=== PATIENT | female | born 1935 | race Caucasian/White ===

== ENCOUNTER 2023-04-14 10:03 | Observation (INO) | payer OTHER ==
--- OUTSIDE RECORDS SUMMARY | 2023-04-14 10:15 | XMS REPORT | Continuity of Care Document ---
:1935 [facility] t Address [address] [place] [address] [place] [id number] Care Team Providers Name Role Phone YAO ORLANDO Primary Care Physician Unavailable CHUY CASTILLO Attending Clinician Unavailable JING ZHOU Attending Clinician Unavailable JENNIFER HERNANDEZ Attending Clinician Unavailable JENNIFER HERNANDEZ Attending Clinician Unavailable Chuy Castillo MD Attending Clinician LAUREN BOLTON Attending Clinician Unavailable Lauren Bolton MD Attending Clinician Doctor Unassigned, [place] Attending Clinician Unavailable River Bentley MD Attending Clinician RIVER BENTLEY Attending Clinician Unavailable Taylor Preston MD Attending Clinician 2, [facility] Attending Clinician Unavailable JING SEALS Attending Clinician Unavailable CHEYENNE TAMAYO Attending Clinician Unavailable MCKENZIE PÉREZ Attending Clinician Unavailable JESSE BAUM Attending Clinician Unavailable Jeses Baum MD Attending Clinician YAO ORLANDO Attending Clinician Unavailable KOLE BOYCE Attending Clinician Unavailable OMAR GRAFF Attending Clinician Unavailable JJ WOODARD Attending Clinician Unavailable Mann Wright MD Attending Clinician LAUREN BOLTON Admitting Clinician Unavailable CHUY CASTILLO Admitting Clinician Unavailable YAO ORLANDO Admitting Clinician Unavailable KOLE BOYCE Admitting Clinician Unavailable OMAR GRAFF Admitting Clinician Unavailable JJ WOODARD Admitting Clinician Unavailable Payers Payer Name Policy Type Policy Effective Date Expiration Date Sour ce Number [employer] MEDICARE [id number] 2020 ADVANTAGE PPO 00:00:00 2 C [id number] 2020 00:00:00 [employer] MEDICARE NA Filomena e ADVANTAGE PPO [facility] Problems Condition Condition Condition Status Onset Resolution Last Treating Co mments Source Name Details Category Date Date Treatment Clinician Date Cardiac Cardiac Disease Active Univers pacemaker pacemaker 808 ity of in situ in situ 00:00: [place] [facility] Branch At risk At risk Disease Active Univers for injury for injury 8-08 it [place] of associated [place] with 00 Medical anticoagul anticoagul Br anch ation ation Essential Essential Disease Active Uni vers hypertensi hypertensi 8-08 it y of on, benign on, benign 00:00: [place] [facility] History of History of Disease Active U nivers lung lung 8-08 ity of cancer cancer 00:00: [place] [facility] Post-nasal Post-nasal Disease Active U nivers drip drip 8-08 ity of 00:00: [place] [facility] Subacute Subacute Disease Active Unive rs maxillary maxillary 808 ity of sinusitis sinusitis 00:[place] [facility] Hypertensi Hypertensi Disease Active U nivers ve urgency ve urgency 6-15 it y of 00:00: [address] Chronic Chronic Disease Active 2021-06 Univers allergic allergic 1-30 ity of rhinitis rhinitis 00:00: [address] 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 1-30 it y of 00:00: [address] Anxiety Anxiety Disease Active 2021-06 Univers 1-30 ity of 00:00: [address] S/P S/P Disease Active 2021-06 Univers radiation radiation 0-18 ity of therapy therapy 00:00: [address] Branch SOB SOB Disease Active 2021-06 Univers (shortness (shortness 0-18 it y of of breath[place] breath[place] [facility] Chronic Chronic Disease Active 2021-06 Univers pain pain 0-18 ity of syndrome syndrome 00:00: [address] Chronic Chronic Disease Active 2021-06 Univers midline midline 0-18 ity of low back low back 00:00: [place] pain with pain with 00 Medi kiko bilateral bilateral Bran ch sciatica sciatica Lumbar Lumbar Disease Active 2021-06 Univers radicular radicular 0-18 ity of syndrome syndrome 00:00: [address] Chronic Chronic Disease Active 2021-06 Univers cystitis cystitis 0-18 ity of 00:00: [address] Screening Screening Disease Active 2021-06 Uni vers for for 0-18 ity of diabetes diabetes 00:00: [place] mellitus mellitus 00 Medica l (DM) (DM) Secretary Pain Pain Disease Active 2021-06 Univers management management 0-18 it y of contract contract 00:00: [place] signed signed [facility] Chronic Chronic Disease Active 2021-06 [facility] and other and other 0-18 Heal th pulmonary pulmonary 00:00: manifestat manifestat 00 ions due ions due to to radiation radiation Chronic Chronic Disease Active 2021-06 [facility] atrial atrial 0-18 Health fibrillati fibrillati 00:00: on on 00 Fibromyalg Fibromyalg Disease Active 2021-06 U T ia ia 0-18 Health 00:00: 00 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 ICD10 Diagnosis Term Adult [employer] Utility Backache Backache Disease Active Overview: Un nicky 11-13 Formattin ity of 00:00: g of this note Medical might be Branch different from the original. ICD10 Diagnosis Term Adult [employer] Utility HLD HLD Disease Active Overview: UT (hyperlipi (hyperlipi 11-13 Formattin Health demia) demia) 00:00: g of this note might be different from the original. Formattin g of this note might be different from the original. ICD10 Diagnosis Term Adult [employer] Utility Uncontroll Uncontroll Disease Active U T ed ed 11-13 Health hypertensi hypertensi 00:00: on on 00 [facility]ary [facility] disease artery [facility] disease[facility] Allergies, Adverse Reactions, Alerts Allergy Allergy Status Severity Reaction(s) Onset Inactive Treating Comm ents Source Name Type Date Date Clinician Atorvast Propensi Active Unknown 2021-06 UT atin ty to 0-18 Health adverse 00:00: reaction 00 s Celecoxi Propensi Active Unknown 2021-06 UT b ty to 0-18 Health adverse 00:00: reaction 00 s Duloxeti Propensi Active Unknown 2021-06 UT ne ty to 0-18 Health adverse 00:00: reaction 00 s Levoflox Propensi Active Unknown 2021-06 UT acin ty to 0-18 Health adverse 00:00: reaction 00 s Linaclot Propensi Active Unknown 2021-06 UT artie ty to 0-18 Health adverse 00:00: reaction 00 s Pregabal Propensi Active Unknown 2021-06 UT in ty to 0-18 Health adverse 00:00: reaction 00 s Quinidin Propensi Active Unknown 2021-06 UT e ty to 0-18 Health adverse 00:00: reaction 00 s Rivaroxa Propensi Active Unknown 2021-06 UT ban ty to 0-18 Health adverse 00:00: reaction 00 s Warfarin Propensi Active Unknown 2021-06 UT ty to 0-18 Health adverse 00:00: reaction 00 s LEVOFLOX DRUG Active Unknown-Cmnt 2021-06 Un nicky ACIN INGREDI 0-18 ity of 00:00: [place] 00 [facility] LINACLOT DRUG Active Unknown-Cmnt 2021-06 Un nicky ARTIE INGREDI 0-18 ity of 00:00: [place] 00 [facility] PREGABAL DRUG Active Unknown-Cmnt 2021-06 Un nicky IN INGREDI 0-18 ity of 00:00: [place] 00 [facility] QUINIDIN DRUG Active Unknown-Cmnt 2021-06 Un nicky E INGREDI 0-18 ity of 00:00: [place] 00 [facility] RIVAROXA DRUG Active Unknown-Cmnt 2021-06 Un nicky BAN INGREDI 0-18 ity of 00:00: [place] 00 [facility] Atorvast Propensi Active Unknown - 2021-06 Uni vers atin ty to See comments 0-18 ity of adverse 00:00: [place] reaction 00 Medical s Branch Cefuroxi Propensi Active Unknown - 2021-06 Uni vers me ty to See comments 0-18 ity of Axetil adverse 00:00: [place] reaction 00 Medical s Branch ATORVAST DRUG Active Unknown-Cmnt 2021-06 Un nicky ATIN INGREDI 0-18 ity of 00:00: [place] 00 [facility] CEFUROXI DRUG Active Unknown-Cmnt 2021-06 Un nicky ME INGREDI 0-18 ity of AXETIL 00:00: [place] 00 [facility] CELECOXI DRUG Active Unknown-Cmnt 2021-06 Un nicky B INGREDI 0-18 ity of 00:00: [place] 00 [facility] WARFARIN DRUG Active Unknown-Cmnt 2021-06 Un nicky INGREDI 0-18 ity of 00:00: [place] 00 [facility] DULOXETI DRUG Active Unknown-Cmnt 2021-06 Un nicky NE INGREDI 0-18 ity of 00:00: [place] 00 [facility] Quinidin Drug Active U Not [place] Allergy Specified 01-21 lle Sulfate 13:46: Mem[facility] 58 l Linzess Drug Active U Not [place] Allergy Specified 01-21 lle 13:46: [facility] 58 l Warfarin Drug Active U Not [place] Sodium Allergy Specified 01-21 lle 13:46: [place] 58 l Quinidin Drug Active U Not [place] Allergy Specified 01-21 lle Sulfate 13:46: [place] 58 l Linzess Drug Active U Not [place] Allergy Specified 01-21 lle 13:46: Mem[place] 58 l Warfarin Drug Active U Not [place] Sodium Allergy Specified 01-21 lle 13:46: [facility] 58 l Quinidin Drug Active U Not [place] Allergy Specified 01-21 lle Sulfate 13:46: [place] 58 l Linzess Drug Active U Not [place] Allergy Specified 01-21 lle 13:46: [facility] 58 l Warfarin Drug Active U Not [place] Sodium Allergy Specified 01-21 lle 13:46: [facility] 58 l Quinidin Drug Active U Not [place] Allergy Specified 01-21 lle Sulfate 13:46: [place] 58 l Linzess Drug Active U Not [place] Allergy Specified 01-21 lle 13:46: [place] 58 l Xarelto Drug Active U Not [place] Allergy Specified 01-21 lle 13:46: [facility] 58 l Lyrica Drug Active U Not [place] Allergy Specified 01-21 lle 13:46: [place] 58 l Celebrex Drug Active U Not [place] Allergy Specified 01-21 lle 13:46: [place] 58 l Warfarin Drug Active U Not 2021- [place] Sodium Allergy Specified 01-21 lle 13:46: [place] 58 l Cymbalta Drug Active U Not [place] Allergy Specified 01-21 lle 13:46: [place] 58 l Levaquin Drug Active U Not [place] Allergy Specified 01-21 lle 13:46: [place] 58 l Quinidin Drug Active U Not [place] Allergy Specified 01-21 lle Sulfate 13:46: [place] 58 l Linzess Drug Active U Not [place] Allergy Specified 01-21 lle 13:46: [facility] 58 l Warfarin Drug Active U Not [place] Sodium Allergy Specified 01-21 lle 13:46: [facility] 58 l Quinidin Drug Active U Not [place] Allergy Specified 01-21 lle Sulfate 13:46: [place] 58 l Linzess Drug Active U Not [place] Allergy Specified 01-21 lle 13:46: Mem[place] 58 l Warfarin Drug Active U Not [place] Sodium Allergy Specified 01-21 lle 13:46: Mem[place] 58 l Quinidin Drug Active U Not [place] Allergy Specified 01-21 lle Sulfate 13:46: [place] 58 l Linzess Drug Active U Not [place] Allergy Specified 01-21 lle 13:46: [facility] 58 l Warfarin Drug Active U Not [place] Sodium Allergy Specified 01-21 lle 13:46: [place] 58 l Quinidin Drug Active U Not [place] Allergy Specified 01-21 lle Sulfate 13:46: [place] 58 l Linzess Drug Active U Not [place] Allergy Specified 01-21 lle 13:46: [place] 58 l Warfarin Drug Active U Not [place] Sodium Allergy Specified 01-21 lle 13:46: Mem[place] 58 l Quinidin Drug Active U Not [place] Allergy Specified 01-21 lle Sulfate 13:46: [place] 58 l Linzess Drug Active U Not [place] Allergy Specified 01-21 lle 13:46: [facility] 58 l Warfarin Drug Active U Not [place] Sodium Allergy Specified 01-21 lle 13:46: [place] 58 l Linzess Drug Active U Not [place] Allergy Specified 12-23 lle 15:47: Mem[place] 14 l Warfarin Drug Active U Not [place] Sodium Allergy Specified 12-23 lle 15:47: [place] 14 l Quinidin Drug Active U Not [place] Allergy Specified 7-16 lle Sulfate 15:47: [place] 14 l Linzess Drug Active U Not 2021- [place] Allergy Specified 7-16 lle 15:47: [place] 14 l Xarelto Drug Active U Not 2021- [place] Allergy Specified 7-16 lle 15:47: [place] 14 l Lyrica Drug Active U Not 2021- [place] Allergy Specified 7-16 lle 15:47: [place] 14 l Celebrex Drug Active U Not [place] Allergy Specified 7-16 lle 15:47: [place] 14 l Warfarin Drug Active U Not 2021- [place] Sodium Allergy Specified 7- lle 15:47: [place] 14 l Cymbalta Drug Active U Not [place] Allergy Specified 7-16 lle 15:47: [place] 14 l Levaquin Drug Active U Not [place] Allergy Specified 7- lle 15:47: [place] 14 l Quinidin Drug Active U Not [place] Allergy Specified 7-16 lle Sulfate 15:47: [place] 14 l Linzess Drug Active U Not 2021- [place] Allergy Specified 7- lle 15:47: [place] 14 l Warfarin Drug Active U Not 2021- [place] Sodium Allergy Specified 7-16 lle 15:47: [facility] 14 l Quinidin Drug Active U Not [place] Allergy Specified 7-16 lle Sulfate 15:47: [place] 14 l Linzess Drug Active U Not 2021- [place] Allergy Specified 7-16 lle 15:47: [facility] 14 l Warfarin Drug Active U Not 2021- [place] Sodium Allergy Specified 7-16 lle 15:47: [facility] 14 l Quinidin Drug Active U Not 2021- [place] Allergy Specified 7-16 lle Sulfate 15:47: [place] 14 l Linzess Drug Active U Not 2021- [place] Allergy Specified 7-16 lle 15:47: [facility] 14 l Warfarin Drug Active U Not 2021- [place] Sodium Allergy Specified 7- lle 15:47: Mem[place] 14 l Quinidin Drug Active U Not [place] Allergy Specified 7-16 lle Sulfate 15:47: [place] 14 l Linzess Drug Active U Not [place] Allergy Specified 12-23 lle 15:47: [facility] 14 l Warfarin Drug Active U Not [place] Sodium Allergy Specified - lle 15:47: [place] 14 l Quinidin Drug Active U Not [place] Allergy Specified 12-23 lle Sulfate 15:47: [place] 14 l Quinidin Drug Active U Not [place] Allergy Specified 2- lle Sulfate 00:50: [place] 36 l Linzess Drug Active U Not [place] Allergy Specified - lle 00:50: [place] 36 l Quinidin Drug Active U Not [place] Allergy Specified - lle Sulfate 00:50: [place] 36 l Linzess Drug Active U Not [place] Allergy Specified - lle 00:50: [place] 36 l Quinidin Drug Active U Not [place] Allergy Specified 2- lle Sulfate 00:50: [place] 36 l Linzess Drug Active U Not [place] Allergy Specified 2- lle 00:50: [place] 36 l Quinidin Drug Active U Not [place] Allergy Specified - lle Sulfate 00:50: [place] 36 l Linzess Drug Active U Not [place] Allergy Specified - lle 00:50: [place] 36 l Quinidin Drug Active U Not [place] Allergy Specified 2- lle Sulfate 00:50: [place] 36 l Linzess Drug Active U Not [place] Allergy Specified 2- lle 00:50: [place] 36 l Quinidin Drug Active U Not [place] Allergy Specified 2- lle Sulfate 00:50: [place] 36 l Linzess Drug Active U Not [place] Allergy Specified 2- lle 00:50: [facility] 36 l Quinidin Drug Active U Not [place] Allergy Specified 2- lle Sulfate 00:50: [place] 36 l Linzess Drug Active U Not [place] Allergy Specified 2- lle 00:50: [place] 36 l Lyrica Drug Active U Not [place] Allergy Specified 2- lle 00:50: [facility] 35 l Celebrex Drug Active U Not [place] Allergy Specified 2- lle 00:50: [place] 35 l Warfarin Drug Active U Not [place] Sodium Allergy Specified 2- lle 00:50: [place] 35 l Cymbalta Drug Active U Not [place] Allergy Specified 2- lle 00:50: [place] 35 l Levaquin Drug Active U Not [place] Allergy Specified 2- lle 00:50: [place] 35 l Warfarin Drug Active U Not [place] Sodium Allergy Specified 2- lle 00:50: [place] 35 l Warfarin Drug Active U Not [place] Sodium Allergy Specified 2- lle 00:50: [place] 35 l Warfarin Drug Active U Not [place] Sodium Allergy Specified 2- lle 00:50: [place] 35 l Warfarin Drug Active U Not [place] Sodium Allergy Specified 2- lle 00:50: [place] 35 l Warfarin Drug Active U Not [place] Sodium Allergy Specified 2- lle 00:50: [place] 35 l Warfarin Drug Active U Not [place] Sodium Allergy Specified 2- lle 00:50: [place] 35 l Xarelto Drug Active U Not [place] Allergy Specified 2- lle 00:50: [place] 34 l Unable UA Active 2020-06 [place] to 0-10 lle Assess 18:41: [facility] 53 l Unable UA Active 2020-06 [place] to 0-10 lle Assess 17:35: Mem[place] 17 l No Known NA Active 2020-06 [place] Allergie 0- lle s 17:01: [facility] 06 l No Known NA Active [place] Allergie 02-06 lle s 07:05: Mem[facility] 07 l No Known NA Active [place] Allergie 12-30 lle s 10:18: Memoria 46 l No Known NA Active [place] Allergie 12-29 lle s 00:00: Mem[facility] 51 l No Known NA Active [place] Allergie 12-28 lle s 13:00: Mem[facility] 09 l No Known NA Active [place] Allergie 12-27 lle s 16:31: Memoria 37 l No Known NA Active [place] Allergie 12-27 lle s 13:46: Memoria 29 l No Known NA Active [place] Allergie 12-27 lle s 13:43: Memoria 38 l warfarin DA Active MO 2020-0 [facility] 2[facility]12 [place] [facility] levoflox DA Active MO 2020-0 [facility] acin 2-12 [place] 00:00: [facility] duloxeti DA Active MO 2020-0 [facility] ne 2-12 [place] 00[facility]00: [facility] pregabal DA Active MO 2020-0 [facility] in 2-12 [place] 00:00: [facility] rivaroxa DA Active MO 2020-0 [facility] ban 2-12 [place] 00:00: [facility] heparin DA Active MO 2020-0 [facility] 2-12 [place] 00:00: [facility] warfarin DA Active MO 2020-0 [facility] 2-12 [place] 00:00: [facility] levoflox DA Active MO 2020-0 [facility] acin 2-12 [place] 00:00: [facility] duloxeti DA Active MO 2020-0 [facility] ne 2-12 [place] 00:00: [facility] pregabal DA Active MO 2020-0 [facility] in 2-12 [place] 00:00: [facility] rivaroxa DA Active MO 2020-0 [facility] ban 2-12 [place] 00:00: [facility] heparin DA Active MO 2020-0 [facility] 2-12 [place] 00:00: [facility] Heparin Allergy Active [place] to 08-16 lle substanc 00:00: [facility] Warfarin Allergy Active [place] to 08-16 lle substanc 00:00: [facility] Levoflox Allergy Active [place] acin to 08-16 lle substanc 00:00: [facility] CI Allergy Active [place] Pigment to 08-16 lle Blue 63 substanc 00:00: [facility] Duloxeti Allergy Active [place] ne to 08-16 lle substanc 00:00: [facility] Pregabal Allergy Active [place] in to 08-16 lle substanc 00:00: [facility]osp[facility] Rivaroxa Allergy Active [place] ban to 08-16 lle substanc 00:00: [facility] Quinine Propensi Active Rash [facility] ty to 11-13 Health adverse 00:00: reaction 00 s QUININE DRUG Active Low Rash Univers INGREDI 11-13 ity of 00:00: [place] 00 [facility] Branch Quinine Propensi Active Rash Univers ty to 11-13 ity of adverse 00:00: [place] reaction 00 Medical s to Branch drug Social History Social Habit Start Date Stop Date Quantity Comments Source Gender identity Universit y [facility] Sexual orientation Univer sity [facility] Tobacco use and 2022-12-24 2022-12-24 Smokeless Universit y of exposure 00:00:00 00:00:00 tobacco non-user [facility] Exposure to 2022-05-01 2022-05-11 Not sure University of SARS-CoV-2 (event) 00:00:00 14:06:00 [facility] History of Social 2022-05-09 2022-05-09 Univers ity of function 00:00:00 00:00:00 [facility] Alcohol intake 2022-04-20 2022-04-20 [facility] 00:00:00 00:00:00 non-drinker (finding) History of tobacco 1976-05-01 Cigarette Smoker University of use 00:00:00 [facility] Sex Ass[birth year] [facility] 00:00:00 00:00:00 Smoking Status Start Date Stop Date Source Ex-smoker 2022-12-24 00:00:00 2022-12-24 00:00:[address] [facility] Medications Ordered Filled Start Stop Current Ordering Indication Dosage Frequency Signature Comments Components Source Medication Medication Date Date Medication? Clinician (SIG) Name Name FAMOTIDINE 2022-06 Yes [id number] TAKE 1 Univers 20 mg 0-30 TABLET BY ity of tablet 00:00: MOUTH 2 [place] 00 TIMES Medical DAILY IN Secretary THE MORNING & IN THE EVENING FEXOFENADIN 2022-06 Yes [id number] TAKE 1 Univers E 60 mg 0-30 TABLET BY ity of tablet 00:00: MOUTH 2 [place] 00 TIMES Medical DAILY IN Secretary THE MORNING & IN THE EVENING *NEEDS APPT* AMLODIPINE 2022-06 Yes [id number] 5mg TAKE 1 U nivers 5 mg tablet 0-19 TABLET BY ity of 00:00: MOUTH IN [place] 00 THE Medical MORNING Secretary FEXOFENADIN 2022-06 Yes [id number] TAKE 1 Univers E 60 mg 0-19 TABLET BY ity of tablet 00:00: MOUTH 2 [place] 00 TIMES Medical DAILY IN Secretary THE MORNING & IN THE EVENING AMLODIPINE 2022-06 Yes [id number] 5mg TAKE 1 U nivers 5 mg tablet 0-19 TABLET BY ity of 00:00: MOUTH IN [place] 00 THE Medical MORNING Secretary FEXOFENADIN 2022-06- No [id number] TAKE 1 Univers E 60 mg 0-19 10-30 TABLET BY ity of tablet 00:00: 00:00 MOUTH 2 [place] 00 :00 TIMES Medical DAILY IN Secretary THE MORNING & IN THE EVENING divalproex 2022-06 Yes [id number] 500mg TAKE 1 Univers 500 mg EC 0-16 TABLET BY ity o f tablet 00:00: MOUTH [place] 00 EVERY 12 Medical HOURS Secretary divalproex 2022-06 Yes [id number] 500mg TAKE 1 Univers 500 mg EC 0-16 TABLET BY ity o f tablet 00:00: MOUTH [place] 00 EVERY 12 Medical HOURS Secretary divalproex 2022-06 Yes [id number] 500mg TAKE 1 Univers 500 mg EC 0-16 TABLET BY ity o f tablet 00:00: MOUTH [place] 00 EVERY 12 Medical HOURS Secretary iopamidol 2022-06- No [id number] 72mL 72 mL, Univers (ISOVUE 0-10 10-10 Intravenou ity o f 370-500 mL) 17:30: 16:39 s, ONCE, 1 [place] injection 00 :00 dose, On Medica l 72 mL Tue Secretary 03/19/23 at 1230, Routine divalproex 2023-0 Yes [id number] 500mg Take 1 Univers (DEPAKOTE) 8-18 tablet by ity of 500 mg EC 00:00: mouth [place] tablet 00 every 12 Medical (twelve) Branch hours. rivastigmin 2023-0 Yes [id number] 3mg Take 1 Univers e tartrate 8-18 capsule by ity of 3 mg 00:00: mouth [place] capsule 00 every Medical morning Branch and evening. divalproex 2023-0 Yes [id number] 500mg Take 1 Univers (DEPAKOTE) 8-18 tablet by ity of 500 mg EC 00:00: mouth [place] tablet 00 every 12 Medical (twelve) Branch hours. rivastigmin 2023-0 Yes [id number] 3mg Take 1 Univers e tartrate 8-18 capsule by ity of 3 mg 00:00: mouth [place] capsule 00 every Medical morning Branch and evening. divalproex 2023-0 Yes [id number] 500mg Take 1 Univers (DEPAKOTE) 8-18 tablet by ity of 500 mg EC 00:00: mouth [place] tablet 00 every 12 Medical (twelve) Branch hours. rivastigmin 2023-0 Yes [id number] 3mg Take 1 Univers e tartrate 8-18 capsule by ity of 3 mg 00:00: mouth [place] capsule 00 every Medical morning Branch and evening. divalproex 2023-0 Yes [id number] 500mg Take 1 Univers (DEPAKOTE) 8-18 tablet by ity of 500 mg EC 00:00: mouth [place] tablet 00 every 12 Medical (twelve) Branch hours. rivastigmin 2023-0 Yes [id number] 3mg Take 1 Univers e tartrate 8-18 capsule by ity of 3 mg 00:00: mouth [place] capsule 00 every Medical morning Branch and evening. divalproex 2023-0 Yes [id number] 500mg Take 1 Univers (DEPAKOTE) 8-18 tablet by ity of 500 mg EC 00:00: mouth [place] tablet 00 every 12 Medical (twelve) Branch hours. rivastigmin 2023-0 Yes [id number] 3mg Take 1 Univers e tartrate 8-18 capsule by ity of 3 mg 00:00: mouth [place] capsule 00 every Medical morning Branch and evening. divalproex 2023-0 Yes [id number] 500mg Take 1 Univers (DEPAKOTE) 8-18 tablet by ity of 500 mg EC 00:00: mouth [place] tablet 00 every 12 Medical (twelve) Branch hours. rivastigmin 2022-0 Yes [id number] 3mg Take 1 Univers e tartrate 8-18 capsule by ity of 3 mg 00:00: mouth [place] capsule 00 every Medical morning Branch and evening. rivastigmin 2022-0 Yes [id number] 3mg Take 1 Univers e tartrate 8-18 capsule by ity of 3 mg 00:00: mouth [place] capsule 00 every Medical morning Branch and evening. rivastigmin 2022-0 Yes [id number] 3mg Take 1 Univers e tartrate 8-18 capsule by ity of 3 mg 00:00: mouth [place] capsule 00 every Medical morning Branch and evening. rivastigmin 2022-0 Yes [id number] 3mg Take 1 Univers e tartrate 8-18 capsule by ity of 3 mg 00:00: mouth [place] capsule 00 every Medical morning Branch and evening. divalproex 2022-0 2022- No [id number] 500mg Take 1 Univers (DEPAKOTE) 8-18 10-16 tablet by ity of 500 mg EC 00:00: 00:00 mouth [place] tablet 00 :00 every 12 Medical (twelve) Branch hours. predniSONE 2022- Yes [id number] 20mg Take 1 [facility] 20 mg 01-16-15 tablet by ity of tablet 00:00: 04:59 mouth [place] 00 :00 every Medical morning Branch for 5 days. predniSONE 2022-0 2022- Yes [id number] 20mg Take 1 [facility] 20 mg 01-16-15 tablet by ity of tablet 00:00: 04:59 mouth [place] 00 :00 every Medical morning Branch for 5 days. methylPREDN 0 2022- No [id number] 40mg U nivers ISolone sod 01-15 ity of succ 22:30: 21:51 [place] (SOLU-MEDRO 00 :00 Medical L (PF)) Branch injection 40 mg methylPREDN 2022- No [id number] 40mg 40 mg, [facility] ISolone sod 01-15 Intravenou i ty of succ 22:30: 21:51 s, ONCE, 1 [place] (SOLU-MEDRO 00 :00 dose, On Medi kiko L (PF)) Sat01/15/23 Branch injection at 1730, 40 mg Routine methylPREDN 0 2022- No [id number] 40mg U nivers ISolone sod 01-15 ity of succ 22:30: 21:51 (SOLU-MEDRO 00 :00 Medical L (PF)) Branch injection 40 mg methylPREDN 0 2022- No [id number] 40mg 40 mg, [facility] ISolone sod 01-15 Intravenou i ty of succ 22:30: 21:51 s, ONCE, 1 (SOLU-MEDRO 00 :00 dose, On Medi kiko L (PF)) Sat01/15/23 Branch injection at 1730, 40 mg Routine fexofenadin 2022-0 Yes [id number] 60mg Take 1 [facility] e (ABEL 8-08 tablet by ity of ALLERGY) 60 00:00: mouth in [place] mg tablet 00 the Medical morning Branch and 1 tablet in the evening. fexofenadin 3-0 Yes [id number] 60mg Take 1 [facility] e (ABEL 8-08 tablet by ity of ALLERGY) 60 00:00: mouth in [place] mg tablet 00 the Medical morning Branch and 1 tablet in the evening. fexofenadin 2023-0 Yes [id number] 60mg Take 1 [facility] e (ABEL 8-08 tablet by ity of ALLERGY) 60 00:00: mouth in [place] mg tablet 00 the Medical morning Branch and 1 tablet in the evening. fexofenadin 2023-0 Yes [id number] 60mg Take 1 [facility] e (ABEL 8-08 tablet by ity of ALLERGY) 60 00:00: mouth in [place] mg tablet 00 the Medical morning Branch and 1 tablet in the evening. fexofenadin 2023-0 Yes [id number] 60mg Take 1 [facility] e (ABEL 8-08 tablet by ity of ALLERGY) 60 00:00: mouth in [place] mg tablet 00 the Medical morning Branch and 1 tablet in the evening. fexofenadin 2023-0 Yes [id number] 60mg Take 1 [facility] e (ABEL 8-08 tablet by ity of ALLERGY) 60 00:00: mouth in [place] mg tablet 00 the Medical morning Branch and 1 tablet in the evening. fexofenadin 3-0 Yes [id number] 60mg Take 1 [facility] e (ABEL 8-08 tablet by ity of ALLERGY) 60 00:00: mouth in [place] mg tablet 00 the Medical morning Branch and 1 tablet in the evening. fexofenadin 3-0 Yes [id number] 60mg Take 1 [facility] e (ABEL 8-08 tablet by ity of ALLERGY) 60 00:00: mouth in [place] mg tablet 00 the Medical morning Branch and 1 tablet in the evening. fexofenadin 3-0 Yes [id number] 60mg Take 1 [facility] e (ABEL 8-08 tablet by ity of ALLERGY) 60 00:00: mouth in [place] mg tablet 00 the Medical morning Branch and 1 tablet in the evening. fexofenadin 3-0 Yes [id number] 60mg Take 1 [facility] e (ABEL 8-08 tablet by ity of ALLERGY) 60 00:00: mouth in [place] mg tablet 00 the Medical morning Branch and 1 tablet in the evening. fexofenadin 3-0 Yes [id number] 60mg Take 1 [facility] e (ABEL 8-08 tablet by ity of ALLERGY) 60 00:00: mouth in [place] mg tablet 00 the Medical morning Branch and 1 tablet in the evening. fexofenadin 3-0 2023- No [id number] 60mg Take 1 [facility] e (ABEL 8-08 10-19 tablet by ity of ALLERGY) 60 00:00: 00:00 mouth in [place] mg tablet 00 :00 the Medical morning Branch and 1 tablet in the evening. fexofenadin 3-0 2023- No [id number] 60mg Take 1 [facility] e (ABEL 8-08 08-08 tablet by ity of ALLERGY) 60 00:00: 00:00 mouth in [place] mg tablet 00 :00 the Medical morning Branch and 1 tablet in the evening. fexofenadin 3-0 2023- No [id number] 60mg Take 1 [facility] e (ABEL 8-08 08-08 tablet by ity of ALLERGY) 60 00:00: 00:00 mouth in [place] mg tablet 00 :00 the Medical morning Branch and 1 tablet in the evening. amLODIPine 3-0 Yes [id number] 5mg Take 1 U nivers 5 mg tablet 7-27 tablet by ity of 00:00: mouth in [place] 00 the Medical morning. Branch fluticasone 3-0 Yes [id number] 1{spray Use 1 [facility] propionate 7-27 } [place] in ity o f 50 00:00: each [place] mcg/actuati 00 nostril in Me dical on nasal the Branch spray morning. fexofenadin 2023-0 Yes [id number] 60mg Take 1 [facility] e (ABEL 7-27 tablet by ity of ALLERGY) 60 00:00: mouth in [place] mg tablet 00 the Medical morning. Branch amLODIPine 2022-0 Yes [id number] 5mg Take 1 U nivers 5 mg tablet 7-27 tablet by ity of 00:00: mouth in [place] 00 the Medical morning. Branch fluticasone 2022-0 Yes [id number] 1{spray Use 1 [facility] propionate 7-27 } [place] in ity o f 50 00:00: each [place] mcg/actuati 00 nostril in Me dical on nasal the Branch spray morning. fexofenadin 3-0 Yes [id number] 60mg Take 1 [facility] e (ABEL 7-27 tablet by ity of ALLERGY) 60 00:00: mouth in [place] mg tablet 00 the Medical morning. Branch amLODIPine 2022-0 Yes [id number] 5mg Take 1 U nivers 5 mg tablet 7-27 tablet by ity of 00:00: mouth in [place] 00 the Medical morning. Branch fluticasone 2022-0 Yes [id number] 1{spray Use 1 [facility] propionate 7-27 } [place] in ity o f 50 00:00: each [place] mcg/actuati 00 nostril in Me dical on nasal the Branch spray morning. amLODIPine 3-0 Yes [id number] 5mg Take 1 U nivers 5 mg tablet 7-27 tablet by ity of 00:00: mouth in [place] 00 the Medical morning. Branch fluticasone 3-0 Yes [id number] 1{spray Use 1 [facility] propionate 7-27 } [place] in ity o f 50 00:00: each [place] mcg/actuati 00 nostril in Me dical on nasal the Branch spray morning. amLODIPine 2023-0 Yes [id number] 5mg Take 1 U nivers 5 mg tablet 7-27 tablet by ity of 00:00: mouth in [place] 00 the Medical morning. Branch fluticasone 2022-0 Yes [id number] 1{spray Use 1 [facility] propionate 7-27 } [place] in ity o f 50 00:00: each [place] mcg/actuati 00 nostril in Me dical on nasal the Branch spray morning. amLODIPine 2022-0 Yes [id number] 5mg Take 1 U nivers 5 mg tablet 7-27 tablet by ity of 00:00: mouth in [place] the Medical morning. Branch fluticasone 2022-0 Yes [id number] 1{spray Use 1 [facility] propionate 7-27 } [place] in ity o f 50 00:00: each [place] mcg/actuati 00 nostril in Me dical on nasal the Branch spray morning. amLODIPine 2022-0 Yes [id number] 5mg Take 1 U nivers 5 mg tablet 7-27 tablet by ity of 00:00: mouth in [place] the Medical morning. Branch fluticasone 2022-0 Yes [id number] 1{spray Use 1 [facility] propionate 7-27 } [place] in ity o f 50 00:00: each [place] mcg/actuati 00 nostril in [place] [facility] on nasal the Branch spray morning. amLODIPine 2022-0 Yes [id number] 5mg Take 1 U nivers 5 mg tablet 7-27 tablet by ity of 00:00: mouth in [place] the Medical morning. Branch fluticasone 2022-0 Yes [id number] 1{spray Use 1 [facility] propionate 7-27 } [place] in ity o f 50 00:00: each [place] mcg/actuati 00 nostril in Me dical on nasal the Branch spray morning. amLODIPine 2022-0 Yes [id number] 5mg Take 1 U nivers 5 mg tablet 7-27 tablet by ity of 00:00: mouth in [place] the Medical morning. Branch fluticasone 3-0 Yes [id number] 1{spray Use 1 [facility] propionate 7-27 } [place] in ity o f 50 00:00: each [place] mcg/actuati 00 nostril in Me dical on nasal the Branch spray morning. amLODIPine 2022-0 Yes [id number] 5mg Take 1 U nivers 5 mg tablet 7-27 tablet by ity of 00:00: mouth in [place] 00 the Medical morning. Branch fluticasone 3-0 Yes [id number] 1{spray Use 1 [facility] propionate 7-27 } [place] in ity o f 50 00:00: each [place] mcg/actuati 00 nostril in Me dical on nasal the Branch spray morning. amLODIPine 3-0 Yes [id number] 5mg Take 1 U nivers 5 mg tablet 7-27 tablet by ity of 00:00: mouth in [place] 00 the Medical morning. Branch fluticasone 3-0 Yes [id number] 1{spray Use 1 [facility] propionate 7-27 } [place] in ity o f 50 00:00: each [place] mcg/actuati 00 nostril in Me dical on nasal the Branch spray morning. amLODIPine 2022-0 Yes [id number] 5mg Take 1 U nivers 5 mg tablet 7-27 tablet by ity of 00:00: mouth in [place] the Medical morning. Branch fluticasone 2022-0 Yes [id number] 1{spray Use 1 [facility] propionate 7-27 } [place] in ity o f 50 00:00: each [place] mcg/actuati 00 nostril in Me dical on nasal the Branch spray morning. amLODIPine 2022-0 Yes [id number] 5mg Take 1 U nivers 5 mg tablet 7-27 tablet by ity of 00:00: mouth in [place] the Medical morning. Branch fluticasone 3-0 Yes [id number] 1{spray Use 1 [facility] propionate 7-27 } [place] in ity o f 50 00:00: each [place] mcg/actuati 00 nostril in Me dical on nasal the Branch spray morning. amLODIPine 3-0 Yes [id number] 5mg Take 1 U nivers 5 mg tablet 7-27 tablet by ity of 00:00: mouth in [place] 00 the Medical morning. Branch fluticasone 3-0 Yes [id number] 1{spray Use 1 [facility] propionate 7-27 } [place] in ity o f 50 00:00: each [place] mcg/actuati 00 nostril in Me dical on nasal the Branch spray morning. fluticasone 3-0 Yes [id number] 1{spray Use 1 [facility] propionate 7-27 } [place] in ity o f 50 00:00: each [place] mcg/actuati 00 nostril in Me dical on nasal the Branch spray morning. fluticasone 2022-0 Yes [id number] 1{spray Use 1 [facility] propionate 01-03 } [place] in ity o f 50 00:00: each [place] mcg/actuati 00 nostril in Me dical on nasal the Branch spray morning. amLODIPine 2022-2022- No [id number] 5mg Take 1 [facility] 5 mg tablet 01-03 tablet by it y of 00:00: 00:00 mouth in [place] 00 :00 the Medical morning. Branch fexofenadin 0 2022- No [id number] 60mg Take 1 [facility] e (ABEL 01-03- tablet by ity of ALLERGY) 60 00:00: 00:00 mouth in [place] mg tablet 00 :00 the Medical morning. Branch fexofenadin 2022-2022- No [id number] 60mg Take 1 [facility] e (ABEL 01-03- tablet by ity of ALLERGY) 60 00:00: 00:00 mouth in [place] mg tablet 00 :00 the Medical morning. Branch fexofenadin 2022- No [id number] 60mg Take 1 [facility] e (ABEL 01-03 08- tablet by ity of ALLERGY) 60 00:00: 00:00 mouth in [place] mg tablet 00 :00 the Medical morning. Branch doxycycline 2022-2022- No [id number] 100mg Take 1 [facility] hyclate 100 01-03- tablet by it y of mg tablet 00:00: 04:59 mouth in [place] 00 :00 the Medical morning Branch and 1 tablet in the evening. Do all this for 7 days. doxycycline 2022-0 2022- No [id number] 100mg Take 1 [facility] hyclate 100 01-03- tablet by it y of mg tablet 00:00: 04:59 mouth in [place] 00 :00 the Medical morning Branch and 1 tablet in the evening. Do all this for 7 days. fexofenadin 0 2022- No [id number] 1{tbl} Take 1 [facility] e-pseudoeph 01-03 tablet by it y of edrine 00:00: 00:00 mouth in [place] (ABEL-D) 00 :00 the Medical 60-120 mg morning Branch per tablet and 1 tablet in the evening. fexofenadin 2022-0 3- No [id number] 1{tbl} Take 1 [facility] e-pseudoeph 7-27 07-27 tablet by it y of edrine 00:00: 00:00 mouth in [place] (ABEL-D) 00 :00 the Medical 60-120 mg morning Branch per tablet and 1 tablet in the evening. rivastigmin 2022-0 Yes [id number] 1.5mg Take 1 [facility] e tartrate 7-17 capsule by ity of 1.5 mg 00:00: mouth [place] capsule 00 every Medical morning Branch and evening. rivastigmin 2022-0 Yes [id number] 1.5mg Take 1 [facility] e tartrate 7-17 capsule by ity of 1.5 mg 00:00: mouth [place] capsule 00 every Medical morning Branch and evening. rivastigmin 2022-0 Yes [id number] 1.5mg Take 1 [facility] e tartrate 7-17 capsule by ity of 1.5 mg 00:00: mouth [place] capsule 00 every Medical morning Branch and evening. rivastigmin 2022-0 Yes [id number] 1.5mg Take 1 [facility] e tartrate 7-17 capsule by ity of 1.5 mg 00:00: mouth [place] capsule 00 every Medical morning Branch and evening. rivastigmin 2022-0 Yes [id number] 1.5mg Take 1 [facility] e tartrate 7-17 capsule by ity of 1.5 mg 00:00: mouth [place] capsule 00 every Medical morning Branch and evening. rivastigmin 2022-0 Yes [id number] 1.5mg Take 1 [facility] e tartrate 7-17 capsule by ity of 1.5 mg 00:00: mouth [place] capsule 00 every Medical morning Branch and evening. rivastigmin 2022-0 Yes [id number] 1.5mg Take 1 [facility] e tartrate 7-17 capsule by ity of 1.5 mg 00:00: mouth [place] capsule 00 every Medical morning Branch and evening. rivastigmin 2022-0 3- No [id number] 1.5mg Take 1 [facility] e tartrate 7-17 08-18 capsule by it y of 1.5 mg 00:00: 00:00 mouth [place] capsule 00 :00 every Medical morning Branch and evening. rivastigmin 2022- No [id number] 1.5mg Take 1 [facility] e tartrate 12-24 capsule by it y of 1.5 mg 00:00: 00:00 mouth [place] capsule 00 :00 every Medical morning Branch and evening. cloNIDine 2022- No [id number] .2mg [place] (CATAPRES) 11-22 ity of tablet 0.2 22:00: 22:02 [place] mg 00 :00 Medical Branch cloNIDine 2022- No [id number] .2mg 0.2 mg, [facility] (CATAPRES) 11-22 Oral, ity of tablet 0.2 22:00: 22:02 ONCE, 1 [place] mg 00 :00 dose, On [facility] Branch 11/22/22 at 1700, Routine cloNIDine 2022- No [id number] .2mg [place] (CATAPRES) 11-22 ity of tablet 0.2 22:00: 22:02 [place] mg 00 :00 Medical Branch cloNIDine 2022- No [id number] .2mg 0.2 mg, [facility] (CATAPRES) 11-22 Oral, ity of tablet 0.2 22:00: 22:02 ONCE, 1 [place] mg 00 :00 dose, On [facility] Branch 11/22/22 at 1700, Routine hydrALAZINE Yes [id number] 50mg Take 1 [facility] 50 mg 6-15 tablet by ity of tablet 00:00: mouth (three) Medical times Branch daily as needed (Take 1 Tab TID PRN if BP > 160/90). busPIRone Yes [id number] 7.5mg Take 1 U nivers 7.5 mg 6-15 tablet by ity of tablet 00:00: mouth in 00 the Medical morning Branch and 1 tablet in the evening. hydrALAZINE Yes [id number] 50mg Take 1 [facility] 50 mg 6-15 tablet by ity of tablet 00:00: mouth 3 (three) Medical times Branch daily as needed (Take 1 Tab TID PRN if BP > 160/90). busPIRone 2023-0 Yes [id number] 7.5mg Take 1 U nivers 7.5 mg 6-15 tablet by ity of tablet 00:00: mouth in [place] 00 the Medical morning Branch and 1 tablet in the evening. hydrALAZINE 2023-0 Yes [id number] 50mg Take 1 [facility] 50 mg 6-15 tablet by ity of tablet 00:00: mouth 3 [place] [address] (three) Medical times Secretary daily as needed (Take 1 Tab TID PRN if BP > 160/90). busPIRone 2023-0 Yes [id number] 7.5mg Take 1 U nivers 7.5 mg 6-15 tablet by ity of tablet 00:00: mouth in [place] 00 the Medical morning Branch and 1 tablet in the evening. hydrALAZINE 3-0 Yes [id number] 50mg Take 1 [facility] 50 mg 6-15 tablet by ity of tablet 00:00: mouth 3 [place] [address] ([facility]) [facility] daily as needed (Take 1 Tab TID PRN if BP > 160/90). busPIRone 3-0 Yes [id number] 7.5mg Take 1 U nivers 7.5 mg 6-15 tablet by ity of tablet 00:00: mouth in [place] [address] the [facility] morning Branch and 1 tablet in the evening. hydrALAZINE 3-0 Yes [id number] 50mg Take 1 [facility] 50 mg 6-15 tablet by ity of tablet 00:00: mouth 3 [place] [address] ([facility]) [facility] times Secretary daily as needed (Take 1 Tab TID PRN if BP > 160/90). busPIRone 3-0 Yes [id number] 7.5mg Take 1 U nivers 7.5 mg 6-15 tablet by ity of tablet 00:00: mouth in [place] 00 the [facility] morning Branch and 1 tablet in the evening. hydrALAZINE 2023-0 Yes [id number] 50mg Take 1 [facility] 50 mg 6-15 tablet by ity of tablet 00:00: mouth 3 [place] [address] (three) [facility] times Secretary daily as needed (Take 1 Tab TID PRN if BP > 160/90). busPIRone 2023-0 Yes [id number] 7.5mg Take 1 U nivers 7.5 mg 6-15 tablet by ity of tablet 00:00: mouth in [place] the Medical morning Branch and 1 tablet in the evening. hydrALAZINE 3-0 Yes [id number] 50mg Take 1 [facility] 50 mg 6-15 tablet by ity of tablet 00:00: mouth 3 [place] [address] ([facility]) [facility] times Secretary daily as needed (Take 1 Tab TID PRN if BP > 160/90). busPIRone 2023-0 Yes [id number] 7.5mg Take 1 U nivers 7.5 mg 6-15 tablet by ity of tablet 00:00: mouth in [place] the [facility] morning Branch and 1 tablet in the evening. hydrALAZINE 3-0 Yes [id number] 50mg Take 1 [facility] 50 mg 6-15 tablet by ity of tablet 00:00: mouth 3 [place] [address] ([facility]) [facility] daily as needed (Take 1 Tab TID PRN if BP > 160/90). busPIRone 3-0 Yes [id number] 7.5mg Take 1 U nivers 7.5 mg 6-15 tablet by ity of tablet 00:00: mouth in [place] [address] the [facility] morning Secretary and 1 tablet in the evening. hydrALAZINE 3-0 Yes [id number] 50mg Take 1 [facility] 50 mg 6-15 tablet by ity of tablet 00:00: mouth 3 [place] [address] ([facility]) [facility] daily as needed (Take 1 Tab TID PRN if BP > 160/90). busPIRone 3-0 Yes [id number] 7.5mg Take 1 U nivers 7.5 mg 6-15 tablet by ity of tablet 00:00: mouth in [place] [address] the [facility] morning Branch and 1 tablet in the evening. hydrALAZINE 2023-0 Yes [id number] 50mg Take 1 [facility] 50 mg 6-15 tablet by ity of tablet 00:00: mouth 3 [place] [address] ([facility]) [facility] daily as needed (Take 1 Tab TID PRN if BP > 160/90). busPIRone 2023-0 Yes [id number] 7.5mg Take 1 U nivers 7.5 mg 6-15 tablet by ity of tablet 00:00: mouth in [place] [address] the [facility] morning Secretary and 1 tablet in the evening. hydrALAZINE 2023-0 Yes [id number] 50mg Take 1 [facility] 50 mg 6-15 tablet by ity of tablet 00:00: mouth 3 [place] (three) Medical times Branch daily as needed (Take 1 Tab TID PRN if BP > 160/90). busPIRone 3-0 Yes [id number] 7.5mg Take 1 U nivers 7.5 mg 6-15 tablet by ity of tablet 00:00: mouth in [place] 00 the Medical morning Branch and 1 tablet in the evening. hydrALAZINE 3-0 Yes [id number] 50mg Take 1 [facility] 50 mg 6-15 tablet by ity of tablet 00:00: mouth 3 [place] (three) Medical times Branch daily as needed (Take 1 Tab TID PRN if BP > 160/90). busPIRone 2022-0 Yes [id number] 7.5mg Take 1 U nivers 7.5 mg 6-15 tablet by ity of tablet 00:00: mouth in [place] the Medical morning Branch and 1 tablet in the evening. hydrALAZINE 2022-0 Yes [id number] 50mg Take 1 [facility] 50 mg 6-15 tablet by ity of tablet 00:00: mouth [place] ([facility]) Medical times Branch daily as needed (Take 1 Tab TID PRN if BP > 160/90). busPIRone 2022-0 Yes [id number] 7.5mg Take 1 U nivers 7.5 mg 6-15 tablet by ity of tablet 00:00: mouth in [place] the Medical morning Branch and 1 tablet in the evening. hydrALAZINE 3-0 Yes [id number] 50mg Take 1 [facility] 50 mg 6-15 tablet by ity of tablet 00:00: mouth 3 [place] (three) Medical times Branch daily as needed (Take 1 Tab TID PRN if BP > 160/90). busPIRone 3-0 Yes [id number] 7.5mg Take 1 U nivers 7.5 mg 6-15 tablet by ity of tablet 00:00: mouth in [place] the Medical morning Branch and 1 tablet in the evening. hydrALAZINE 3-0 Yes [id number] 50mg Take 1 [facility] 50 mg 6-15 tablet by ity of tablet 00:00: mouth 3 [place] (three) Medical times Branch daily as needed (Take 1 Tab TID PRN if BP > 160/90). busPIRone 3-0 Yes [id number] 7.5mg Take 1 U nivers 7.5 mg 6-15 tablet by ity of tablet 00:00: mouth in [place] 00 the Medical morning Branch and 1 tablet in the evening. hydrALAZINE 3-0 Yes [id number] 50mg Take 1 [facility] 50 mg 6-15 tablet by ity of tablet 00:00: mouth 3 [place] [address] (three) Medical times Secretary daily as needed (Take 1 Tab TID PRN if BP > 160/90). busPIRone 3-0 Yes [id number] 7.5mg Take 1 U nivers 7.5 mg 6-15 tablet by ity of tablet 00:00: mouth in [place] 00 the Medical morning Branch and 1 tablet in the evening. hydrALAZINE 3-0 Yes [id number] 50mg Take 1 [facility] 50 mg 6-15 tablet by ity of tablet 00:00: mouth 3 [place] [address] ([facility]) [facility] times Secretary daily as needed (Take 1 Tab TID PRN if BP > 160/90). busPIRone 3-0 Yes [id number] 7.5mg Take 1 U nivers 7.5 mg 6-15 tablet by ity of tablet 00:00: mouth in [place] [address] the [facility] morning Branch and 1 tablet in the evening. hydrALAZINE 3-0 Yes [id number] 50mg Take 1 [facility] 50 mg 6-15 tablet by ity of tablet 00:00: mouth 3 [place] [address] ([facility]) [facility] times Secretary daily as needed (Take 1 Tab TID PRN if BP > 160/90). busPIRone 3-0 Yes [id number] 7.5mg Take 1 U nivers 7.5 mg 6-15 tablet by ity of tablet 00:00: mouth in [place] [address] the Medical morning Branch and 1 tablet in the evening. hydrALAZINE 2023-0 Yes [id number] 50mg Take 1 [facility] 50 mg 6-15 tablet by ity of tablet 00:00: mouth 3 [place] [address] (three) [facility] times Secretary daily as needed (Take 1 Tab TID PRN if BP > 160/90). busPIRone 3-0 Yes [id number] 7.5mg Take 1 U nivers 7.5 mg 6-15 tablet by ity of tablet 00:00: mouth in [place] [address] the Medical morning Branch and 1 tablet in the evening. hydrALAZINE 2023-0 Yes [id number] 50mg Take 1 [facility] 50 mg 6-15 tablet by ity of tablet 00:00: mouth 3 [place] [address] ([facility]) [facility] daily as needed (Take 1 Tab TID PRN if BP > 160/90). busPIRone 2023-0 Yes [id number] 7.5mg Take 1 U nivers 7.5 mg 6-15 tablet by ity of tablet 00:00: mouth in [place] the [facility] morning Branch and 1 tablet in the evening. hydrALAZINE 3-0 Yes [id number] 50mg Take 1 [facility] 50 mg 6-15 tablet by ity of tablet 00:00: mouth 3 [place] [address] ([facility]) [facility] daily as needed (Take 1 Tab TID PRN if BP > 160/90). busPIRone 3-0 Yes [id number] 7.5mg Take 1 U nivers 7.5 mg 6-15 tablet by ity of tablet 00:00: mouth in [address] and 1 tablet in the evening. hydrALAZINE 3-0 Yes [id number] 50mg Take 1 [facility] 50 mg 6-15 tablet by ity of tablet 00:00: mouth 3 [place] [address] ([facility]) [facility] daily as needed (Take 1 Tab TID PRN if BP > 160/90). busPIRone 3-0 Yes [id number] 7.5mg Take 1 U nivers 7.5 mg 6-15 tablet by ity of tablet 00:00: mouth in [place] [address] the [facility] morning Secretary and 1 tablet in the evening. hydrALAZINE 3-0 Yes [id number] 50mg Take 1 [facility] 50 mg 6-15 tablet by ity of tablet 00:00: mouth 3 [place] [address] ([facility]) [facility] daily as needed (Take 1 Tab TID PRN if BP > 160/90). busPIRone 2023-0 Yes [id number] 7.5mg Take 1 U nivers 7.5 mg 6-15 tablet by ity of tablet 00:00: mouth in [place] [address] the [facility] morning Secretary and 1 tablet in the evening. hydrALAZINE 2023-0 Yes [id number] 50mg Take 1 [facility] 50 mg 6-15 tablet by ity of tablet 00:00: mouth 3 [place] [address] (three) Medical times Branch daily as needed (Take 1 Tab TID PRN if BP > 160/90). busPIRone 2022-0 Yes [id number] 7.5mg Take 1 U nivers 7.5 mg 6-15 tablet by ity of tablet 00:00: mouth in [place] 00 the Medical morning Branch and 1 tablet in the evening. hydrALAZINE 2022-0 Yes [id number] 50mg Take 1 [facility] 50 mg 6-15 tablet by ity of tablet 00:00: mouth 3 [place] [address] (three) Medical times Branch daily as needed (Take 1 Tab TID PRN if BP > 160/90). busPIRone 2022-0 Yes [id number] 7.5mg Take 1 U nivers 7.5 mg 6-15 tablet by ity of tablet 00:00: mouth in [place] [address] the Medical morning Branch and 1 tablet in the evening. hydrALAZINE 2022-0 Yes [id number] 50mg Take 1 [facility] 50 mg 6-15 tablet by ity of tablet 00:00: mouth 3 [place] [address] (three) Medical times Secretary daily as needed (Take 1 Tab TID PRN if BP > 160/90). busPIRone 2022-0 Yes [id number] 7.5mg Take 1 U nivers 7.5 mg 6-15 tablet by ity of tablet 00:00: mouth in [place] the Medical morning Branch and 1 tablet in the evening. metoprolol 2022-0 Yes [id number] TAKE 1 U nivers succinate 5-31 TABLET BY ity o f XL 100 mg 00:00: MOUTH IN [facility] 24 hr 00 THE Medical tablet MORNING Branch WITH FOOD hydroCHLORO 2022-0 Yes [id number] TAKE 1 [facility] thiazide 50 5-31 TABLET BY ity of mg tablet 00:00: MOUTH ONCE [place] 00 DAILY Medical Branch furosemide 2022-0 Yes [id number] 20mg Take 1 U nivers 20 mg 5-31 tablet by ity of tablet 00:00: mouth in [place] [address] the Medical morning. Branch losartan 2022-0 Yes [id number] Take 100mg [facility] 100 mg 5-31 qAM and ity of tablet 00:00: 50mg qPM [place] 00 Medical Branch amitriptyli 2022-0 Yes [id number] 10mg Take 1 [facility] ne 10 mg 5-31 tablet by ity of tablet 00:00: mouth at [place] [address] bedtime. Medical Branch apixaban Yes [id number] 2.5mg Take 1 Univer s (ELIQUIS) 5-31 tablet by ity o f 2.5 mg 00:00: mouth in [place] tablet 00 the Medical morning Branch and 1 tablet in the evening. Indication s: atrial fibrillati on metoprolol Yes [id number] TAKE 1 U nivers succinate 5-31 TABLET BY ity o f XL 100 mg 00:00: MOUTH IN [facility] 24 hr 00 THE Medical tablet MORNING Branch WITH FOOD hydroCHLORO Yes [id number] TAKE 1 [facility] thiazide 50 5-31 TABLET BY ity of mg tablet 00:00: MOUTH ONCE [place] 00 DAILY Medical Branch furosemide Yes [id number] 20mg Take 1 [facility] nivers 20 mg 5-31 tablet by ity of tablet 00:00: mouth in [place] 00 the Medical morning. Branch losartan Yes [id number] Take 100mg [facility] 100 mg 5-31 qAM and ity of tablet 00:00: 50mg qPM [place] 00 Medical Branch amitriptyli Yes [id number] 10mg Take 1 [facility] ne 10 mg 5-31 tablet by ity of tablet 00:00: mouth at [place] 00 bedtime. Medical Branch apixaban Yes 1358 2.5mg Take 1 [facility] s (ELIQUIS) 5-31 tablet by ity o f 2.5 mg 00:00: mouth in [place] tablet 00 the Medical morning Branch and 1 tablet in the evening. Indication s: atrial fibrillati on metoprolol Yes [id number] TAKE 1 U nivers succinate 5-31 TABLET BY ity o f XL 100 mg 00:00: MOUTH IN [facility] 24 hr 00 THE Medical tablet MORNING Branch WITH FOOD hydroCHLORO Yes [id number] TAKE 1 [facility] thiazide 50 5-31 TABLET BY ity of mg tablet 00:00: MOUTH ONCE [place] 00 DAILY Medical Branch furosemide Yes [id number] 20mg Take 1 [facility] nivers 20 mg 5-31 tablet by ity of tablet 00:00: mouth in [place] 00 the Medical morning. Branch losartan Yes [id number] Take 100mg [facility] 100 mg 5-31 qAM and ity of tablet 00:00: 50mg qPM [place] 00 Medical Branch amitriptyli 2022- Yes [id number] 10mg Take 1 [facility] ne 10 mg 5-31 tablet by ity of tablet 00:00: mouth at [place] [address] bedtime. Medical Branch apixaban Yes 1358 2.5mg Take 1 [facility] s (ELIQUIS) 5-31 tablet by ity o f 2.5 mg 00:00: mouth in [place] tablet 00 the Medical morning Branch and 1 tablet in the evening. Indication s: atrial fibrillati on metoprolol Yes [id number] TAKE 1 [facility] nivers succinate 5-31 TABLET BY ity o f XL 100 mg 00:00: MOUTH IN [facility] 24 hr 00 THE Medical tablet MORNING Branch WITH FOOD hydroCHLORO Yes [id number] TAKE 1 [facility] thiazide 50 5-31 TABLET BY ity of mg tablet 00:00: MOUTH ONCE [place] 00 DAILY Medical Branch furosemide Yes [id number] 20mg Take 1 [facility] nivers 20 mg 5-31 tablet by ity of tablet 00:00: mouth in [place] 00 the Medical morning. Branch losartan Yes [id number] Take 100mg [facility] 100 mg 5-31 qAM and ity of tablet 00:00: 50mg qPM [place] 00 Medical Branch amitriptyli Yes [id number] 10mg Take 1 [facility] ne 10 mg 5-31 tablet by ity of tablet 00:00: mouth at [place] [address] bedtime. Medical Branch apixaban Yes 1358 2.5mg Take 1 [facility] s (ELIQUIS) 5-31 tablet by ity o f 2.5 mg 00:00: mouth in [place] tablet 00 the Medical morning Branch and 1 tablet in the evening. Indication s: atrial fibrillati on metoprolol Yes [id number] TAKE 1 [facility] nivers succinate 5-31 TABLET BY ity o f XL 100 mg 00:00: MOUTH IN [facility] 24 hr 00 THE Medical tablet MORNING Branch WITH FOOD furosemide 2022- Yes [id number] 20mg Take 1 [facility] nivers 20 mg 5-31 tablet by ity of tablet 00:00: mouth in [place] 00 the Medical morning. Branch losartan Yes [id number] Take 100mg [facility] 100 mg 5-31 qAM and ity of tablet 00:00: 50mg qPM [place] 00 Medical Branch amitriptyli Yes [id number] 10mg Take 1 [facility] ne 10 mg 5-31 tablet by ity of tablet 00:00: mouth at [place] 00 bedtime. Medical Branch apixaban Yes 1358 2.5mg Take 1 [facility] s (ELIQUIS) 5-31 tablet by ity o f 2.5 mg 00:00: mouth in [place] tablet 00 the Medical morning Branch and 1 tablet in the evening. Indication s: atrial fibrillati on metoprolol Yes [id number] TAKE 1 [facility] nivers succinate 5-31 TABLET BY ity o f XL 100 mg 00:00: MOUTH IN [facility] 24 hr 00 THE Medical tablet MORNING Branch WITH FOOD furosemide Yes [id number] 20mg Take 1 [facility] nivers 20 mg 5-31 tablet by ity of tablet 00:00: mouth in [place] 00 the Medical morning. Branch losartan Yes [id number] Take 100mg [facility] 100 mg 5-31 qAM and ity of tablet 00:00: 50mg qPM [place] Medical Branch amitriptyli Yes [id number] 10mg Take 1 [facility] ne 10 mg 5-31 tablet by ity of tablet 00:00: mouth at [place] [address] bedtime. Medical Branch apixaban Yes 1358 2.5mg Take 1 [facility] s (ELIQUIS) 5-31 tablet by ity o f 2.5 mg 00:00: mouth in [place] tablet 00 the Medical morning Branch and 1 tablet in the evening. Indication s: atrial fibrillati on metoprolol Yes [id number] TAKE 1 U nivers succinate 5-31 TABLET BY ity o f XL 100 mg 00:00: MOUTH IN [facility] 24 hr 00 THE Medical tablet MORNING Branch WITH FOOD furosemide Yes [id number] 20mg Take 1 [facility] nivers 20 mg 5-31 tablet by ity of tablet 00:00: mouth in [place] 00 the Medical morning. Branch losartan 2022- Yes [id number] Take 100mg [facility] 100 mg 5-31 qAM and ity of tablet 00:00: 50mg qPM [place] 00 Medical Branch amitriptyli Yes [id number] 10mg Take 1 [facility] ne 10 mg 5-31 tablet by ity of tablet 00:00: mouth at [place] 00 bedtime. Medical Branch apixaban Yes 1358 2.5mg Take 1 [facility] s (ELIQUIS) 5-31 tablet by ity o f 2.5 mg 00:00: mouth in [place] tablet 00 the Medical morning Branch and 1 tablet in the evening. Indication s: atrial fibrillati on metoprolol Yes [id number] TAKE 1 U nivers succinate 5-31 TABLET BY ity o f XL 100 mg 00:00: MOUTH IN [place] 24 hr 00 THE Medical tablet MORNING Branch WITH FOOD furosemide Yes [id number] 20mg Take 1 [facility] nivers 20 mg 5-31 tablet by ity of tablet 00:00: mouth in [place] 00 the Medical morning. Branch losartan Yes [id number] Take 100mg [facility] 100 mg 5-31 qAM and ity of tablet 00:00: 50mg qPM [place] 00 Medical Branch amitriptyli Yes [id number] 10mg Take 1 [facility] ne 10 mg 5-31 tablet by ity of tablet 00:00: mouth at [place] 00 bedtime. Medical Branch apixaban Yes 1358 2.5mg Take 1 [facility] s (ELIQUIS) 5-31 tablet by ity o f 2.5 mg 00:00: mouth in [place] tablet 00 the Medical morning Branch and 1 tablet in the evening. Indication s: atrial fibrillati on metoprolol Yes [id number] TAKE 1 U nivers succinate 5-31 TABLET BY ity o f XL 100 mg 00:00: MOUTH IN [place] 24 hr 00 THE Medical tablet MORNING Branch WITH FOOD furosemide Yes [id number] 20mg Take 1 [facility] nivers 20 mg 5-31 tablet by ity of tablet 00:00: mouth in [place] 00 the Medical morning. Branch losartan Yes [id number] Take 100mg [facility] 100 mg 5-31 qAM and ity of tablet 00:00: 50mg qPM [place] 00 Medical Branch amitriptyli Yes [id number] 10mg Take 1 [facility] ne 10 mg 5-31 tablet by ity of tablet 00:00: mouth at [place] 00 bedtime. Medical Branch apixaban Yes 1358 2.5mg Take 1 [facility] s (ELIQUIS) 5-31 tablet by ity o f 2.5 mg 00:00: mouth in [place] tablet 00 the Medical morning Branch and 1 tablet in the evening. Indication s: atrial fibrillati on metoprolol Yes [id number] TAKE 1 U nivers succinate 5-31 TABLET BY ity o f XL 100 mg 00:00: MOUTH IN [facility] 24 hr 00 THE Medical tablet MORNING Branch WITH FOOD furosemide Yes [id number] 20mg Take 1 [facility] nivers 20 mg 5-31 tablet by ity of tablet 00:00: mouth in [place] 00 the Medical morning. Branch losartan Yes [id number] Take 100mg [facility] 100 mg 5-31 qAM and ity of tablet 00:00: 50mg qPM [place] 00 Medical Branch amitriptyli Yes [id number] 10mg Take 1 [facility] ne 10 mg 5-31 tablet by ity of tablet 00:00: mouth at [place] [address] bedtime. Medical Branch apixaban Yes 1358 2.5mg Take 1 [facility] s (ELIQUIS) 5-31 tablet by ity o f 2.5 mg 00:00: mouth in [place] tablet 00 the Medical morning Branch and 1 tablet in the evening. Indication s: atrial fibrillati on metoprolol Yes [id number] TAKE 1 U nivers succinate 5-31 TABLET BY ity o f XL 100 mg 00:00: MOUTH IN [facility] 24 hr 00 THE Medical tablet MORNING Branch WITH FOOD furosemide Yes [id number] 20mg Take 1 [facility] nivers 20 mg 5-31 tablet by ity of tablet 00:00: mouth in [place] 00 the Medical morning. Branch losartan Yes [id number] Take 100mg [facility] 100 mg 5-31 qAM and ity of tablet 00:00: 50mg qPM [place] 00 Medical Branch amitriptyli 2022-0 Yes [id number] 10mg Take 1 [facility] ne 10 mg 5-31 tablet by ity of tablet 00:00: mouth at [place] [address] bedtime. Medical Branch apixaban Yes 1358 2.5mg Take 1 [facility] s (ELIQUIS) 5-31 tablet by ity o f 2.5 mg 00:00: mouth in [place] tablet 00 the Medical morning Branch and 1 tablet in the evening. Indication s: atrial fibrillati on metoprolol Yes [id number] TAKE 1 U nivers succinate 5-31 TABLET BY ity o f XL 100 mg 00:00: MOUTH IN [facility] 24 hr 00 THE Medical tablet MORNING Branch WITH FOOD furosemide Yes [id number] 20mg Take 1 [facility] nivers 20 mg 5-31 tablet by ity of tablet 00:00: mouth in [place] 00 the Medical morning. Branch losartan Yes [id number] Take 100mg [facility] 100 mg 5-31 qAM and ity of tablet 00:00: 50mg qPM [place] 00 Medical Branch amitriptyli Yes [id number] 10mg Take 1 [facility] ne 10 mg 5-31 tablet by ity of tablet 00:00: mouth at [place] [address] bedtime. Medical Branch apixaban Yes 1358 2.5mg Take 1 Univer s (ELIQUIS) 5-31 tablet by ity o f 2.5 mg 00:00: mouth in [place] tablet 00 the Medical morning Branch and 1 tablet in the evening. Indication s: atrial fibrillati on metoprolol Yes [id number] TAKE 1 U nivers succinate 5-31 TABLET BY ity o f XL 100 mg 00:00: MOUTH IN [facility] 24 hr 00 THE Medical tablet MORNING Branch WITH FOOD furosemide Yes [id number] 20mg Take 1 [facility] nivers 20 mg 5-31 tablet by ity of tablet 00:00: mouth in [place] 00 the Medical morning. Branch losartan Yes [id number] Take 100mg [facility] 100 mg 5-31 qAM and ity of tablet 00:00: 50mg qPM [place] 00 Medical Branch amitriptyli Yes [id number] 10mg Take 1 [facility] ne 10 mg 5-31 tablet by ity of tablet 00:00: mouth at [place] [address] bedtime. Medical Branch apixaban Yes 1358 2.5mg Take 1 [facility] s (ELIQUIS) 5-31 tablet by ity o f 2.5 mg 00:00: mouth in [place] tablet 00 the Medical morning Branch and 1 tablet in the evening. Indication s: atrial fibrillati on metoprolol Yes [id number] TAKE 1 U nivers succinate 5-31 TABLET BY ity o f XL 100 mg 00:00: MOUTH [place] 24 [place] 00 THE Medical tablet MORNING Branch WITH FOOD furosemide Yes [id number] 20mg Take 1 U nivers 20 mg 5-31 tablet by ity of tablet 00:00: mouth in [place] 00 the Medical morning. Branch losartan 2022-0 Yes [id number] Take 100mg [facility] 100 mg 5-31 qAM and ity of tablet 00:00: 50mg qPM [place] 00 Medical Branch amitriptyli 0 Yes [id number] 10mg Take 1 [facility] ne 10 mg 5-31 tablet by ity of tablet 00:00: mouth at [place] [address] bedtime. Medical Branch apixaban 0 Yes 1358 2.5mg Take 1 Univer s (ELIQUIS) 5-31 tablet by ity o f 2.5 mg 00:00: mouth in [place] tablet 00 the Medical morning Branch and 1 tablet in the evening. Indication s: atrial fibrillati on metoprolol Yes [id number] TAKE 1 U nivers succinate 5-31 TABLET BY ity o f XL 100 mg 00:00: MOUTH IN [facility] 24 hr 00 THE Medical tablet MORNING Branch WITH FOOD furosemide Yes [id number] 20mg Take 1 [facility] nivers 20 mg 5-31 tablet by ity of tablet 00:00: mouth in [place] 00 the Medical morning. Branch losartan 0 Yes [id number] Take 100mg [facility] 100 mg 5-31 qAM and ity of tablet 00:00: 50mg qPM [place] 00 Medical Branch amitriptyli 2022-0 Yes [id number] 10mg Take 1 [facility] ne 10 mg 5-31 tablet by ity of tablet 00:00: mouth at [place] [address] bedtime. Medical Branch apixaban 0 Yes 1358 2.5mg Take 1 Univer s (ELIQUIS) 5-31 tablet by ity o f 2.5 mg 00:00: mouth in [place] tablet 00 the Medical morning Branch and 1 tablet in the evening. Indication s: atrial fibrillati on metoprolol Yes [id number] TAKE 1 U nivers succinate 5-31 TABLET BY ity o f XL 100 mg 00:00: MOUTH IN [place] 24 hr 00 THE Medical tablet MORNING Branch WITH FOOD furosemide Yes [id number] 20mg Take 1 [facility] nivers 20 mg 5-31 tablet by ity of tablet 00:00: mouth in [place] 00 the Medical morning. Branch losartan Yes [id number] Take 100mg [facility] 100 mg 5-31 qAM and ity of tablet 00:00: 50mg qPM [place] 00 Medical Branch amitriptyli Yes [id number] 10mg Take 1 [facility] ne 10 mg 5-31 tablet by ity of tablet 00:00: mouth at [place] 00 bedtime. Medical Branch apixaban Yes 1358 2.5mg Take 1 [facility] s (ELIQUIS) 5-31 tablet by ity o f 2.5 mg 00:00: mouth in [place] tablet 00 the Medical morning Branch and 1 tablet in the evening. Indication s: atrial fibrillati on metoprolol Yes [id number] TAKE 1 U nivers succinate 5-31 TABLET BY ity o f XL 100 mg 00:00: MOUTH IN [facility] 24 hr 00 THE Medical tablet MORNING Branch WITH FOOD furosemide Yes [id number] 20mg Take 1 U nivers 20 mg 5-31 tablet by ity of tablet 00:00: mouth in [place] 00 the Medical morning. Branch losartan Yes [id number] Take 100mg [facility] 100 mg 5-31 qAM and ity of tablet 00:00: 50mg qPM [place] 00 Medical Branch amitriptyli Yes [id number] 10mg Take 1 [facility] ne 10 mg 5-31 tablet by ity of tablet 00:00: mouth at [place] 00 bedtime. Medical Branch apixaban Yes 1358 2.5mg Take 1 Un[facility] s (ELIQUIS) 5-31 tablet by ity o f 2.5 mg 00:00: mouth in [place] tablet 00 the Medical morning Branch and 1 tablet in the evening. Indication s: atrial fibrillati on metoprolol Yes [id number] TAKE 1 U nivers succinate 5-31 TABLET BY ity o f XL 100 mg 00:00: MOUTH [place] 24 [place] 00 THE Medical tablet MORNING Branch WITH FOOD furosemide Yes [id number] 20mg Take 1 U nivers 20 mg 5-31 tablet by ity of tablet 00:00: mouth in [place] 00 the Medical morning. Branch losartan Yes [id number] Take 100mg [facility] 100 mg 5-31 qAM and ity of tablet 00:00: 50mg qPM [place] 00 Medical Branch amitriptyli 2022-0 Yes [id number] 10mg Take 1 [facility] ne 10 mg 5-31 tablet by ity of tablet 00:00: mouth at [place] [address] bedtime. Medical Branch apixaban 2022-0 Yes 1358 2.5mg Take 1 Univer s (ELIQUIS) 5-31 tablet by ity o f 2.5 mg 00:00: mouth in [place] tablet 00 the Medical morning Branch and 1 tablet in the evening. Indication s: atrial fibrillati on metoprolol Yes [id number] TAKE 1 U nivers succinate 5-31 TABLET BY ity o f XL 100 mg 00:00: MOUTH IN [facility] 24 hr 00 THE Medical tablet MORNING Branch WITH FOOD furosemide Yes [id number] 20mg Take 1 U nivers 20 mg 5-31 tablet by ity of tablet 00:00: mouth in [place] 00 the Medical morning. Branch losartan Yes [id number] Take 100mg [facility] 100 mg 5-31 qAM and ity of tablet 00:00: 50mg qPM [place] 00 Medical Branch amitriptyli 2022-0 Yes [id number] 10mg Take 1 [facility] ne 10 mg 5-31 tablet by ity of tablet 00:00: mouth at [place] [address] bedtime. Medical Branch apixaban 2022- Yes 1358 2.5mg Take 1 Univer s (ELIQUIS) 5-31 tablet by ity o f 2.5 mg 00:00: mouth in [place] tablet 00 the Medical morning Branch and 1 tablet in the evening. Indication s: atrial fibrillati on metoprolol Yes [id number] TAKE 1 U nivers succinate 5-31 TABLET BY ity o f XL 100 mg 00:00: MOUTH IN [facility] 24 hr 00 THE Medical tablet MORNING Branch WITH FOOD furosemide Yes [id number] 20mg Take 1 [facility] nivers 20 mg 5-31 tablet by ity of tablet 00:00: mouth in [place] 00 the Medical morning. Branch losartan Yes [id number] Take 100mg [facility] 100 mg 5-31 qAM and ity of tablet 00:00: 50mg qPM [place] 00 Medical Branch amitriptyli Yes [id number] 10mg Take 1 [facility] ne 10 mg 5-31 tablet by ity of tablet 00:00: mouth at [place] [address] bedtime. Medical Branch apixaban Yes 1358 2.5mg Take 1 [facility] s (ELIQUIS) 5-31 tablet by ity o f 2.5 mg 00:00: mouth in [place] tablet 00 the Medical morning Branch and 1 tablet in the evening. Indication s: atrial fibrillati on metoprolol Yes [id number] TAKE 1 U nivers succinate 5-31 TABLET BY ity o f XL 100 mg 00:00: MOUTH IN [facility] 24 hr 00 THE Medical tablet MORNING Branch WITH FOOD furosemide Yes [id number] 20mg Take 1 [facility] nivers 20 mg 5-31 tablet by ity of tablet 00:00: mouth in [place] 00 the Medical morning. Branch losartan Yes [id number] Take 100mg [facility] 100 mg 5-31 qAM and ity of tablet 00:00: 50mg qPM [place] Medical Branch amitriptyli Yes [id number] 10mg Take 1 [facility] ne 10 mg 5-31 tablet by ity of tablet 00:00: mouth at [place] [address] bedtime. Medical Branch apixaban Yes 1358 2.5mg Take 1 [facility] s (ELIQUIS) 5-31 tablet by ity o f 2.5 mg 00:00: mouth in [place] tablet 00 the Medical morning Branch and 1 tablet in the evening. Indication s: atrial fibrillati on metoprolol Yes [id number] TAKE 1 U nivers succinate 5-31 TABLET BY ity o f XL 100 mg 00:00: MOUTH IN [place] 24 hr 00 THE Medical tablet MORNING Branch WITH FOOD furosemide Yes [id number] 20mg Take 1 [facility] nivers 20 mg 5-31 tablet by ity of tablet 00:00: mouth in [place] 00 the Medical morning. Branch losartan Yes [id number] Take 100mg [facility] 100 mg 5-31 qAM and ity of tablet 00:00: 50mg qPM [place] 00 Medical Branch amitriptyli Yes [id number] 10mg Take 1 [facility] ne 10 mg 5-31 tablet by ity of tablet 00:00: mouth at [place] [address] bedtime. Medical Branch apixaban Yes 1358 2.5mg Take 1 [facility] s (ELIQUIS) 5-31 tablet by ity o f 2.5 mg 00:00: mouth in [place] tablet 00 the Medical morning Branch and 1 tablet in the evening. Indication s: atrial fibrillati on metoprolol Yes [id number] TAKE 1 U nivers succinate 5-31 TABLET BY ity o f XL 100 mg 00:00: MOUTH IN [facility] 24 hr 00 THE Medical tablet MORNING Branch WITH FOOD furosemide Yes [id number] 20mg Take 1 [facility] nivers 20 mg 5-31 tablet by ity of tablet 00:00: mouth in [place] 00 the Medical morning. Branch losartan Yes [id number] Take 100mg [facility] 100 mg 5-31 qAM and ity of tablet 00:00: 50mg qPM [place] 00 Medical Branch amitriptyli Yes [id number] 10mg Take 1 [facility] ne 10 mg 5-31 tablet by ity of tablet 00:00: mouth at [place] [address] bedtime. Medical Branch apixaban Yes 1358 2.5mg Take 1 [facility] s (ELIQUIS) 5-31 tablet by ity o f 2.5 mg 00:00: mouth in [place] tablet 00 the Medical morning Branch and 1 tablet in the evening. Indication s: atrial fibrillati on metoprolol Yes [id number] TAKE 1 U nivers succinate 5-31 TABLET BY ity o f XL 100 mg 00:00: MOUTH IN [facility] 24 hr 00 THE Medical tablet MORNING Branch WITH FOOD hydroCHLORO Yes [id number] TAKE 1 [facility] thiazide 50 5-31 TABLET BY ity of mg tablet 00:00: MOUTH ONCE [place] 00 DAILY Medical Branch furosemide Yes [id number] 20mg Take 1 [facility] nivers 20 mg 5-31 tablet by ity of tablet 00:00: mouth in [place] 00 the Medical morning. Branch losartan Yes [id number] Take 100mg [facility] 100 mg 5-31 qAM and ity of tablet 00:00: 50mg qPM [place] 00 Medical Branch amitriptyli Yes [id number] 10mg Take 1 [facility] ne 10 mg 5-31 tablet by ity of tablet 00:00: mouth at [place] [address] bedtime. Medical Branch apixaban Yes 1358 2.5mg Take 1 [facility] s (ELIQUIS) 5-31 tablet by ity o f 2.5 mg 00:00: mouth in [place] tablet 00 the Medical morning Branch and 1 tablet in the evening. Indication s: atrial fibrillati on busPIRone 5 Yes [id number] 5mg Take 1 [facility] mg tablet 5-31 tablet by ity o f 00:00: mouth in [place] 00 the Medical morning Branch and 1 tablet in the evening. metoprolol Yes [id number] TAKE 1 U nivers succinate 5-31 TABLET BY ity o f XL 100 mg 00:00: MOUTH IN [facility] 24 hr 00 THE Medical tablet MORNING Branch WITH FOOD hydroCHLORO Yes [id number] TAKE 1 [facility] thiazide 50 5-31 TABLET BY ity of mg tablet 00:00: MOUTH ONCE [place] 00 DAILY Medical Branch furosemide Yes [id number] 20mg Take 1 [facility] nivers 20 mg 5-31 tablet by ity of tablet 00:00: mouth in [place] 00 the Medical morning. Branch losartan Yes [id number] Take 100mg [facility] 100 mg 5-31 qAM and ity of tablet 00:00: 50mg qPM [place] 00 Medical Branch amitriptyli Yes [id number] 10mg Take 1 [facility] ne 10 mg 5-31 tablet by ity of tablet 00:00: mouth at [place] [address] bedtime. Medical Branch apixaban Yes 1358 2.5mg Take 1 [facility] s (ELIQUIS) 5-31 tablet by ity o f 2.5 mg 00:00: mouth in [place] tablet 00 the Medical morning Branch and 1 tablet in the evening. Indication s: atrial fibrillati on busPIRone 5 Yes [id number] 5mg Take 1 [facility] mg tablet 5-31 tablet by ity o f 00:00: mouth in [place] 00 the Medical morning Branch and 1 tablet in the evening. metoprolol Yes [id number] TAKE 1 U nivers succinate 5-31 TABLET BY ity o f XL 100 mg 00:00: MOUTH IN [facility] 24 hr 00 THE Medical tablet MORNING Branch WITH FOOD hydroCHLORO Yes [id number] TAKE 1 [facility] thiazide 50 5-31 TABLET BY ity of mg tablet 00:00: MOUTH ONCE [place] 00 DAILY Medical Branch furosemide 2022-0 Yes [id number] 20mg Take 1 [facility] nivers 20 mg 5-31 tablet by ity of tablet 00:00: mouth in [place] 00 the Medical morning. Branch losartan 2022-0 Yes [id number] Take 100mg [facility] 100 mg 5-31 qAM and ity of tablet 00:00: 50mg qPM [place] 00 Medical Branch amitriptyli 2022-0 Yes [id number] 10mg Take 1 [facility] ne 10 mg 5-31 tablet by ity of tablet 00:00: mouth at [place] [address] bedtime. Medical Branch apixaban 2022- Yes 1358 2.5mg Take 1 [facility] s (ELIQUIS) 5-31 tablet by ity o f 2.5 mg 00:00: mouth in [facility] 00 the Medical morning Branch and 1 tablet in the evening. Indication s: atrial fibrillati on busPIRone 5 2022- Yes [id number] 5mg Take 1 [facility] mg tablet 5-31 tablet by ity o f 00:00: mouth in [place] 00 the Medical morning Branch and 1 tablet in the evening. metoprolol Yes [id number] TAKE 1 U nivers succinate 5-31 TABLET BY ity o f XL 100 mg 00:00: MOUTH IN [facility] 24 hr 00 THE Medical tablet MORNING Branch WITH FOOD hydroCHLORO 2022-0 Yes [id number] TAKE 1 [facility] thiazide 50 5-31 TABLET BY ity of mg tablet 00:00: MOUTH ONCE [place] 00 DAILY Medical Branch furosemide 2022-0 Yes [id number] 20mg Take 1 [facility] nivers 20 mg 5-31 tablet by ity of tablet 00:00: mouth in [place] 00 the Medical morning. Branch losartan 2022-0 Yes [id number] Take 100mg [facility] 100 mg 5-31 qAM and ity of tablet 00:00: 50mg qPM [place] 00 Medical Branch amitriptyli 2022-0 Yes [id number] 10mg Take 1 [facility] ne 10 mg 5-31 tablet by ity of tablet 00:00: mouth at [place] [address] bedtime. Medical Branch apixaban 2022-0 Yes 1358 2.5mg Take 1 [facility] s (ELIQUIS) 5-31 tablet by ity o f 2.5 mg 00:00: mouth in [place] tablet 00 the Medical morning Branch and 1 tablet in the evening. Indication s: atrial fibrillati on busPIRone 5 Yes [id number] 5mg Take 1 [facility] mg tablet 5-31 tablet by ity o f 00:00: mouth in [place] 00 the Medical morning Branch and 1 tablet in the evening. metoprolol Yes [id number] TAKE 1 U nivers succinate 5-31 TABLET BY ity o f XL 100 mg 00:00: MOUTH IN [facility] 24 hr 00 THE Medical tablet MORNING Branch WITH FOOD hydroCHLORO Yes [id number] TAKE 1 [facility] thiazide 50 5-31 TABLET BY ity of mg tablet 00:00: MOUTH ONCE [place] 00 DAILY Medical Branch furosemide Yes [id number] 20mg Take 1 [facility] 20 mg 5-31 tablet by ity of tablet 00:00: mouth in [place] 00 the Medical morning. Branch losartan Yes [id number] Take 100mg [facility] 100 mg 5-31 qAM and ity of tablet 00:00: 50mg qPM [place] 00 Medical Branch amitriptyli Yes [id number] 10mg Take 1 [facility] ne 10 mg 5-31 tablet by ity of tablet 00:00: mouth at [place] [address] bedtime. Medical Branch apixaban Yes 1358 2.5mg Take 1 [facility] s (ELIQUIS) 5-31 tablet by ity o f 2.5 mg 00:00: mouth in [place] tablet 00 the Medical morning Branch and 1 tablet in the evening. Indication s: atrial fibrillati on metoprolol Yes [id number] TAKE 1 U nivers succinate 5-31 TABLET BY ity o f XL 100 mg 00:00: MOUTH IN [facility] 24 hr 00 THE Medical tablet MORNING Branch WITH FOOD hydroCHLORO 2022- Yes [id number] TAKE 1 [facility] thiazide 50 5-31 TABLET BY ity of mg tablet 00:00: MOUTH ONCE [place] 00 DAILY Medical Branch furosemide Yes [id number] 20mg Take 1 [facility] 20 mg 5-31 tablet by ity of tablet 00:00: mouth in [place] 00 the Medical morning. Branch losartan Yes [id number] Take 100mg [facility] 100 mg 5-31 qAM and ity of tablet 00:00: 50mg qPM [place] 00 Medical Branch amitriptyli Yes [id number] 10mg Take 1 [facility] ne 10 mg 5-31 tablet by ity of tablet 00:00: mouth at [place] [address] bedtime. Medical Branch apixaban Yes 1358 2.5mg Take 1 [facility] s (ELIQUIS) 5-31 tablet by ity o f 2.5 mg 00:00: mouth in [place] tablet 00 the Medical morning Branch and 1 tablet in the evening. Indication s: atrial fibrillati on metoprolol Yes [id number] TAKE 1 U nivers succinate 5-31 TABLET BY ity o f XL 100 mg 00:00: MOUTH IN [facility] 24 hr 00 THE Medical tablet MORNING Branch WITH FOOD hydroCHLORO Yes [id number] TAKE 1 [facility] thiazide 50 5-31 TABLET BY ity of mg tablet 00:00: MOUTH ONCE [place] 00 DAILY Medical Branch furosemide Yes [id number] 20mg Take 1 U nivers 20 mg 5-31 tablet by ity of tablet 00:00: mouth in [place] [address] the Medical morning. Branch losartan Yes [id number] Take 100mg [facility] 100 mg 5-31 qAM and ity of tablet 00:00: 50mg qPM [place] 00 Medical Branch amitriptyli Yes [id number] 10mg Take 1 [facility] ne 10 mg 5-31 tablet by ity of tablet 00:00: mouth at [place] [address] bedtime. Medical Branch apixaban Yes [id number] 2.5mg Take 1 [facility] s (ELIQUIS) 5-31 tablet by ity o f 2.5 mg 00:00: mouth in [place] tablet 00 the Medical morning Branch and 1 tablet in the evening. Indication s: atrial fibrillati on hydroCHLORO 2022-0 2022- No [id number] TAKE 1 [facility] thiazide 50 5-31 07-27 TABLET BY it y of mg tablet 00:00: 00:00 MOUTH ONCE [place] 00 :00 DAILY Medical Branch hydroCHLORO 2022-0 2022- No [id number] TAKE 1 [facility] thiazide 50 5-31 07-27 TABLET BY it y of mg tablet 00:00: 00:00 MOUTH ONCE [place] 00 :00 DAILY Medical Branch busPIRone 5 0 2022- No [id number] 5mg Take 1 [facility] mg tablet - 06-15 tablet by ity of 00:00: 00:00 mouth in [place] 00 :00 the Medical morning Branch and 1 tablet in the evening. busPIRone 5 0 2022- No [id number] 5mg Take 1 [facility] mg tablet - 06-15 tablet by ity of 00:00: 00:00 mouth in [place] 00 :00 the Medical morning Branch and 1 tablet in the evening. hydroCHLORO 0 Yes [id number] TAKE 1 [facility] thiazide 50 5-25 TABLET BY ity of mg tablet 00:00: MOUTH ONCE [place] 00 DAILY Medical Branch hydroCHLORO 2022-0 2022- No [id number] TAKE 1 [facility] thiazide 50 5-25 05-31 TABLET BY it y of mg tablet 00:00: 00:00 MOUTH ONCE [place] :00 DAILY Medical Branch hydroCHLORO 2022-0 2022- No [id number] TAKE 1 [facility] thiazide 50 5-25 05-31 TABLET BY it y of mg tablet 00:00: 00:00 MOUTH ONCE [place] 00 :00 DAILY Medical Branch METOPROLOL 0 Yes [id number] TAKE 1 U nivers SUCCINATE 5-19 TABLET BY ity o f XL 100 mg 00:00: MOUTH IN [facility] 24 hr 00 THE Medical tablet MORNING Branch WITH FOOD LOSARTAN Yes [id number] 100mg TAKE 1 Un nicky 100 mg 5-19 TABLET BY ity of tablet 00:00: MOUTH IN [place] 00 THE Medical MORNING Branch METOPROLOL 0 Yes [id number] TAKE 1 U nivers SUCCINATE 5-19 TABLET BY ity o f XL 100 mg 00:00: MOUTH IN [facility] 24 hr 00 THE Medical tablet MORNING Branch WITH FOOD LOSARTAN 2022-0 Yes [id number] 100mg TAKE 1 [facility] nicky 100 mg 5-19 TABLET BY ity of tablet 00:00: MOUTH IN [place] 00 THE Medical MORNING Branch METOPROLOL 0 2022- No [id number] TAKE 1 [facility] SUCCINATE 5-19 05-31 TABLET BY ity of XL 100 mg 00:00: 00:00 MOUTH IN [facility] 24 hr 00 :00 THE Medical tablet MORNING Branch WITH FOOD LOSARTAN 0 2022- No [id number] 100mg TAKE 1 U nivers 100 mg 5-26 10-31 TABLET BY ity of tablet 00:00: 00:00 MOUTH IN [place] 00 :00 THE Medical MORNING Branch METOPROLOL 2022-0 2022- No [id number] TAKE 1 [facility] SUCCINATE 5-26 10-31 TABLET BY ity of XL 100 mg 00:00: 00:00 MOUTH IN [facility] as 24 hr 00 :00 THE Medical tablet MORNING Branch WITH FOOD LOSARTAN 2022- No [id number] 100mg TAKE 1 U nivers 100 mg -26 10-31 TABLET BY ity of tablet 00:00: 00:00 MOUTH IN [place] 00 :00 THE Medical MORNING Branch AMITRIPTYLI Yes [id number] TAKE 1/2 [facility] [place] 10 mg 2-27 TABLET BY ity of tablet 00:00: MOUTH AT [place] BEDTIME Medical Branch AMITRIPTYLI Yes [id number] TAKE 1/2 [facility] [place] 10 mg 2-27 TABLET BY ity of tablet 00:00: MOUTH AT [place] BEDTIME Medical Branch AMITRIPTYLI Yes [id number] TAKE 1/2 [facility] NE 10 mg 2-27 TABLET BY ity of tablet 00:00: MOUTH AT [place] BEDTIME Medical Branch AMITRIPTYLI Yes [id number] TAKE 1/2 [facility] NE 10 mg 2-27 TABLET BY ity of tablet 00:00: MOUTH AT [place] 00 BEDTIME Medical Branch AMITRIPTYLI Yes [id number] TAKE 1/2 [facility] NE 10 mg 2-27 TABLET BY ity of tablet 00:00: MOUTH AT [place] BEDTIME Medical Branch AMITRIPTYLI 2022- No [id number] TAKE 1/2 [facility] NE 10 mg 2-27 05-31 TABLET BY ity o f tablet 00:00: 00:00 MOUTH AT [place] 00 :00 BEDTIME Medical Branch AMITRIPTYLI 2022- No [id number] TAKE 1/2 [facility] NE 10 mg 2-27 05-31 TABLET BY ity o f tablet 00:00: 00:00 MOUTH AT [place] 00 :00 BEDTIME Medical Branch levocetiriz Yes [id number] 5mg TAKE 1 [facility] ine 5 mg 1-09 TABLET BY ity of tablet 00:00: MOUTH AT [place] 00 BEDTIME Medical NEEDED FOR Branch ALLERGIES levocetiriz 2023-0 Yes [id number] 5mg TAKE 1 [facility] ine 5 mg 1-09 TABLET BY ity of tablet 00:00: MOUTH AT [place] 00 BEDTIME Medical NEEDED FOR Branch ALLERGIES levocetiriz 2023-0 Yes [id number] 5mg TAKE 1 [facility] ine 5 mg 1-09 TABLET BY ity of tablet 00:00: MOUTH AT [place] 00 BEDTIME Medical NEEDED FOR Branch ALLERGIES levocetiriz 2023-0 Yes [id number] 5mg TAKE 1 [facility] ine 5 mg 1-09 TABLET BY ity of tablet 00:00: MOUTH AT [place] 00 BEDTIME Medical NEEDED FOR Branch ALLERGIES levocetiriz 2023-0 Yes [id number] 5mg TAKE 1 [facility] ine 5 mg 1-09 TABLET BY ity of tablet 00:00: MOUTH AT [place] BEDTIME Medical NEEDED FOR Branch ALLERGIES levocetiriz 2023-0 Yes [id number] 5mg TAKE 1 [facility] ine 5 mg 1-09 TABLET BY ity of tablet 00:00: MOUTH AT [place] BEDTIME Medical NEEDED FOR Branch ALLERGIES levocetiriz 2023-0 Yes [id number] 5mg TAKE 1 [facility] ine 5 mg 1-09 TABLET BY ity of tablet 00:00: MOUTH AT [place] BEDTIME Medical NEEDED FOR Branch ALLERGIES levocetiriz 2023-0 Yes [id number] 5mg TAKE 1 [facility] ine 5 mg 1-09 TABLET BY ity of tablet 00:00: MOUTH AT [place] [address] BEDTIME Medical NEEDED FOR Branch ALLERGIES levocetiriz 2023-0 Yes [id number] 5mg TAKE 1 [facility] ine 5 mg 1-09 TABLET BY ity of tablet 00:00: MOUTH AT [place] BEDTIME Medical NEEDED FOR Branch ALLERGIES levocetiriz 2023-0 Yes [id number] 5mg TAKE 1 [facility] ine 5 mg 1-09 TABLET BY ity of tablet 00:00: MOUTH AT [place] 00 BEDTIME Medical NEEDED FOR Branch ALLERGIES levocetiriz 2023-0 Yes [id number] 5mg TAKE 1 [facility] ine 5 mg 1-09 TABLET BY ity of tablet 00:00: MOUTH AT [place] [address] BEDTIME Medical NEEDED FOR Branch ALLERGIES levocetiriz 2023-0 Yes [id number] 5mg TAKE 1 [facility] ine 5 mg 1-09 TABLET BY ity of tablet 00:00: MOUTH AT [place] 00 BEDTIME Medical NEEDED FOR Branch ALLERGIES levocetiriz 202-0 Yes [id number] 5mg TAKE 1 [facility] ine 5 mg 1-09 TABLET BY ity of tablet 00:00: MOUTH AT [place] 00 BEDTIME Medical NEEDED FOR Branch ALLERGIES levocetiriz 2022-0 Yes [id number] 5mg TAKE 1 [facility] ine 5 mg 1-09 TABLET BY ity of tablet 00:00: MOUTH AT [place] 00 BEDTIME Medical NEEDED FOR Branch ALLERGIES levocetiriz 2022-0 Yes [id number] 5mg TAKE 1 [facility] ine 5 mg 1-09 TABLET BY ity of tablet 00:00: MOUTH AT [place] 00 BEDTIME Medical NEEDED FOR Branch ALLERGIES levocetiriz 2022-0 Yes [id number] 5mg TAKE 1 [facility] ine 5 mg 1-09 TABLET BY ity of tablet 00:00: MOUTH AT [place] 00 BEDTIME Medical NEEDED FOR Branch ALLERGIES levocetiriz 2022-0 Yes [id number] 5mg TAKE 1 [facility] ine 5 mg 1-09 TABLET BY ity of tablet 00:00: MOUTH AT [place] 00 BEDTIME Medical NEEDED FOR Branch ALLERGIES levocetiriz 2022-0 Yes [id number] 5mg TAKE 1 [facility] ine 5 mg 1-09 TABLET BY ity of tablet 00:00: MOUTH AT [place] 00 BEDTIME Medical NEEDED FOR Branch ALLERGIES levocetiriz 3-0 2022- No [id number] 5mg TAKE 1 [facility] ine 5 mg -02 14- TABLET BY ity o f tablet 00:00: 00:00 MOUTH AT [place] 00 :00 BEDTIME Medical NEEDED FOR Branch ALLERGIES levocetiriz 3-0 2022- No [id number] 5mg TAKE 1 [facility] ine 5 mg -02 14-27 TABLET BY ity o f tablet 00:00: 00:00 MOUTH AT [place] 00 :00 BEDTIME Medical NEEDED FOR Branch ALLERGIES ondansetron 2021-06 Yes 4mg Take 4 mg U nivers 4 mg tablet 1-30 by mouth ity of 11:14: every 8 [place] 03 (eight) Medical hours as Branch needed. ondansetron 2021-06 Yes 4mg Take 4 mg U nivers 4 mg tablet 1-30 by mouth ity of 11:14: every 8 [place] 03 (eight) Medical hours as Branch needed. ondansetron 2022-1 Yes 4mg Take 4 mg U nivers 4 mg tablet 1-30 by mouth ity of 11:14: every 8 [place] 03 (eight) Medical hours as Branch needed. ondansetron 2022-1 Yes 4mg Take 4 mg U nivers 4 mg tablet 1-30 by mouth ity of 11:14: every 8 [place] 03 (eight) Medical hours as Branch needed. ondansetron 2022-1 Yes 4mg Take 4 mg U nivers 4 mg tablet 1-30 by mouth ity of 11:14: every 8 [place] 03 (eight) Medical hours as Branch needed. ondansetron 2022-1 Yes 4mg Take 4 mg U nivers 4 mg tablet 1-30 by mouth ity of 11:14: every 8 [place] 03 (eight) Medical hours as Branch needed. ondansetron 2-1 Yes 4mg Take 4 mg U nivers 4 mg tablet 1-30 by mouth ity of 11:14: every 8 [place] 03 (eight) Medical hours as Branch needed. ondansetron 2-1 Yes 4mg Take 4 mg U nivers 4 mg tablet 1-30 by mouth ity of 11:14: every 8 [place] 03 (eight) Medical hours as Branch needed. ondansetron 2-1 Yes 4mg Take 4 mg U nivers 4 mg tablet 1-30 by mouth ity of 11:14: every 8 [place] 03 (eight) Medical hours as Branch needed. ondansetron 2-1 Yes 4mg Take 4 mg U nivers 4 mg tablet 1-30 by mouth ity of 11:14: every 8 [place] 03 (eight) Medical hours as Branch needed. ondansetron 2-1 Yes 4mg Take 4 mg U nivers 4 mg tablet 1-30 by mouth ity of 11:14: every 8 [place] 03 (eight) Medical hours as Branch needed. ondansetron 2022-1 Yes 4mg Take 4 mg U nivers 4 mg tablet 1-30 by mouth ity of 11:14: every 8 [place] 03 (eight) Medical hours as Branch needed. ondansetron 2022-1 Yes 4mg Take 4 mg U nivers 4 mg tablet 1-30 by mouth ity of 11:14: every 8 [place] 03 (eight) Medical hours as Branch needed. ondansetron 2022-1 Yes 4mg Take 4 mg U nivers 4 mg tablet 1-30 by mouth ity of 11:14: every 8 [place] 03 (eight) Medical hours as Branch needed. ondansetron 2-1 Yes 4mg Take 4 mg U nivers 4 mg tablet 1-30 by mouth ity of 11:14: every 8 [place] 03 (eight) Medical hours as Branch needed. ondansetron 2-1 Yes 4mg Take 4 mg U nivers 4 mg tablet 1-30 by mouth ity of 11:14: every 8 [place] 03 (eight) Medical hours as Branch needed. ondansetron 2-1 Yes 4mg Take 4 mg U nivers 4 mg tablet 1-30 by mouth ity of 11:14: every 8 [place] 03 (eight) Medical hours as Branch needed. ondansetron 2-1 Yes 4mg Take 4 mg U nivers 4 mg tablet 1-30 by mouth ity of 11:14: every 8 [place] 03 (eight) Medical hours as Branch needed. ondansetron 2-1 Yes 4mg Take 4 mg U nivers 4 mg tablet 1-30 by mouth ity of 11:14: every 8 [place] 03 (eight) Medical hours as Branch needed. ondansetron 2-1 Yes 4mg Take 4 mg U nivers 4 mg tablet 1-30 by mouth ity of 11:14: every 8 [place] 03 (eight) Medical hours as Branch needed. ondansetron 2-1 Yes 4mg Take 4 mg U nivers 4 mg tablet 1-30 by mouth ity of 11:14: every 8 [place] 03 (eight) Medical hours as Branch needed. ondansetron 2-1 Yes 4mg Take 4 mg U nivers 4 mg tablet 1-30 by mouth ity of 11:14: every 8 [place] 03 (eight) Medical hours as Branch needed. ondansetron 2022-1 Yes 4mg Take 4 mg U nivers 4 mg tablet 1-30 by mouth ity of 11:14: every 8 [place] 03 (eight) Medical hours as Branch needed. ondansetron 2022-1 Yes 4mg Take 4 mg U nivers 4 mg tablet 1-30 by mouth ity of 11:14: every 8 [place] 03 (eight) Medical hours as Branch needed. ondansetron 2022-1 Yes 4mg Take 4 mg U nivers 4 mg tablet 1-30 by mouth ity of 11:14: every 8 [place] 03 (eight) Medical hours as Branch needed. ondansetron 2-1 Yes 4mg Take 4 mg U nivers 4 mg tablet 1-30 by mouth ity of 11:14: every 8 [place] 03 (eight) Medical hours as Branch needed. ondansetron 2-1 Yes 4mg Take 4 mg U nivers 4 mg tablet 1-30 by mouth ity of 11:14: every 8 [place] 03 (eight) Medical hours as Branch needed. ondansetron 2-1 Yes 4mg Take 4 mg U nivers 4 mg tablet 1-30 by mouth ity of 11:14: every 8 [place] 03 (eight) Medical hours as Branch needed. ondansetron 2-1 Yes 4mg Take 4 mg U nivers 4 mg tablet 1-30 by mouth ity of 11:14: every 8 [place] 03 (eight) Medical hours as Branch needed. ondansetron 2-1 Yes 4mg Take 4 mg U nivers 4 mg tablet 1-30 by mouth ity of 11:14: every 8 [place] 03 (eight) Medical hours as Branch needed. ondansetron 2-1 Yes 4mg Take 4 mg U nivers 4 mg tablet 1-30 by mouth ity of 11:14: every 8 [place] 03 (eight) Medical hours as Branch needed. ondansetron 2-1 Yes 4mg Take 4 mg U nivers 4 mg tablet 1-30 by mouth ity of 11:14: every 8 [place] 03 (eight) Medical hours as Branch needed. ondansetron 2-1 Yes 4mg Take 4 mg U nivers 4 mg tablet 1-30 by mouth ity of 11:14: every 8 [place] 03 (eight) Medical hours as Branch needed. ondansetron 2-1 Yes 4mg Take 4 mg U nivers 4 mg tablet 1-30 by mouth ity of 11:14: every 8 [place] 03 (eight) Medical hours as Branch needed. ondansetron 2022-1 Yes 4mg Take 4 mg U nivers 4 mg tablet 1-30 by mouth ity of 11:14: every 8 [place] 03 (eight) Medical hours as Branch needed. ondansetron 2-1 Yes 4mg Take 4 mg U nivers 4 mg tablet 1-30 by mouth ity of 11:14: every 8 [place] 03 (eight) Medical hours as Branch needed. ondansetron 2-1 Yes 4mg Take 4 mg U nivers 4 mg tablet 1-30 by mouth ity of 11:14: every 8 [place] 03 (eight) Medical hours as Branch needed. ondansetron 2-1 Yes 4mg Take 4 mg U nivers 4 mg tablet 1-30 by mouth ity of 11:14: every 8 [place] 03 (eight) Medical hours as Branch needed. ondansetron 2-1 Yes 4mg Take 4 mg U nivers 4 mg tablet 1-30 by mouth ity of 11:14: every 8 [place] 03 (eight) Medical hours as Branch needed. ondansetron 2-1 Yes 4mg Take 4 mg U nivers 4 mg tablet 1-30 by mouth ity of 11:14: every 8 [place] 03 (eight) Medical hours as Branch needed. ondansetron 2-1 Yes 4mg Take 4 mg U nivers 4 mg tablet 1-30 by mouth ity of 11:14: every 8 [place] 03 (eight) Medical hours as Branch needed. ondansetron 2-1 Yes 4mg Take 4 mg U nivers 4 mg tablet 1-30 by mouth ity of 11:14: every 8 [place] 03 (eight) Medical hours as Branch needed. ondansetron 2-1 Yes 4mg Take 4 mg U nivers 4 mg tablet 1-30 by mouth ity of 11:14: every 8 [place] 03 (eight) Medical hours as Branch needed. ondansetron 2-1 Yes 4mg Take 4 mg U nivers 4 mg tablet 1-30 by mouth ity of 11:14: every 8 [place] 03 (eight) Medical hours as Branch needed. ondansetron 2-1 Yes 4mg Take 4 mg U nivers 4 mg tablet 1-30 by mouth ity of 11:14: every 8 [place] 03 (eight) Medical hours as Branch needed. ondansetron 2022-1 Yes 4mg Take 4 mg U nivers 4 mg tablet 1-30 by mouth ity of 11:14: every 8 [place] 03 (eight) Medical hours as Branch needed. ondansetron 2022-1 Yes 4mg Take 4 mg U nivers 4 mg tablet 1-30 by mouth ity of 11:14: every 8 [place] 03 (eight) Medical hours as Branch needed. lidocaine 5 2021-06 Yes [id number] Apply 2g [facility] % ointment 1-30 to ity of 00:00: affected [place] 00 areas BID Medical PRN Branch Diclofenac 2021-06 Yes [id number] Apply 4g [facility] Sodium 1-30 to ity of (VOLTAREN) 00:00: affected [place] 1 % gel 00 area QID Medical Branch lidocaine 5 2021-06 Yes [id number] Apply 2g [facility] % ointment 1-30 to ity of 00:00: affected [place] 00 areas BID Medical PRN Branch Diclofenac 2021-06 Yes [id number] Apply 4g [facility] Sodium 1-30 to ity of (VOLTAREN) 00:00: affected [place] 1 % gel 00 area QID Medical Branch lidocaine 5 2021-06 Yes [id number] Apply 2g [facility] % ointment 1-30 to ity of 00:00: affected [place] 00 areas BID Medical PRN Branch Diclofenac 2021-06 Yes [id number] Apply 4g [facility] Sodium 1-30 to ity of (VOLTAREN) 00:00: affected [place] 1 % gel 00 area QID Medical Branch lidocaine 5 2021-06 Yes [id number] Apply 2g [facility] % ointment 1-30 to ity of 00:00: affected [place] 00 areas BID Medical PRN Branch Diclofenac 2021-06 Yes [id number] Apply 4g [facility] Sodium 1-30 to ity of (VOLTAREN) 00:00: affected [place] 1 % gel 00 area QID Medical Branch lidocaine 5 2021-06 Yes [id number] Apply 2g [facility] % ointment 1-30 to ity of 00:00: affected [place] 00 areas BID Medical PRN Branch Diclofenac 2021-06 Yes [id number] Apply 4g [facility] Sodium 1-30 to ity of (VOLTAREN) 00:00: affected [place] 1 % gel 00 area QID Medical Branch lidocaine 5 2021-06 Yes [id number] Apply 2g [facility] % ointment 1-30 to ity of 00:00: affected [place] 00 areas BID Medical PRN Branch Diclofenac 2021-06 Yes [id number] Apply 4g [facility] Sodium 1-30 to ity of (VOLTAREN) 00:00: affected [place] 1 % gel 00 area QID Medical Branch lidocaine 5 2021-06 Yes [id number] Apply 2g [facility] % ointment 1-30 to ity of 00:00: affected [place] 00 areas BID Medical PRN Branch Diclofenac 2021-06 Yes [id number] Apply 4g [facility] Sodium 1-30 to ity of (VOLTAREN) 00:00: affected [place] 1 % gel 00 area QID Medical Branch lidocaine 5 2021-06 Yes [id number] Apply 2g [facility] % ointment 1-30 to ity of 00:00: affected [place] 00 areas BID Medical PRN Branch Diclofenac 2021-06 Yes [id number] Apply 4g [facility] Sodium 1-30 to ity of (VOLTAREN) 00:00: affected [place] 1 % gel 00 area QID Medical Branch lidocaine 5 2021-06 Yes [id number] Apply 2g [facility] % ointment 1-30 to ity of 00:00: affected [place] 00 areas BID Medical PRN Branch Diclofenac 2021-06 Yes [id number] Apply 4g [facility] Sodium 1-30 to ity of (VOLTAREN) 00:00: affected [place] 1 % gel 00 area QID Medical Branch lidocaine 5 2021-06 Yes [id number] Apply 2g [facility] % ointment 1-30 to ity of 00:00: affected [place] 00 areas BID Medical PRN Branch Diclofenac 2021-06 Yes [id number] Apply 4g [facility] Sodium 1-30 to ity of (VOLTAREN) 00:00: affected [place] 1 % gel 00 area QID Medical Branch lidocaine 5 2021-06 Yes [id number] Apply 2g [facility] % ointment 1-30 to ity of 00:00: affected [place] 00 areas BID Medical PRN Branch Diclofenac 2021-06 Yes [id number] Apply 4g [facility] Sodium 1-30 to ity of (VOLTAREN) 00:00: affected [place] 1 % gel 00 area QID Medical Branch lidocaine 5 2021-06 Yes [id number] Apply 2g [facility] % ointment 1-30 to ity of 00:00: affected [place] 00 areas BID Medical PRN Branch Diclofenac 2021-06 Yes [id number] Apply 4g [facility] Sodium 1-30 to ity of (VOLTAREN) 00:00: affected [place] 1 % gel 00 area QID Medical Branch lidocaine 5 2021-06 Yes [id number] Apply 2g [facility] % ointment 1-30 to ity of 00:00: affected [place] 00 areas BID Medical PRN Branch Diclofenac 2021-06 Yes [id number] Apply 4g [facility] Sodium 1-30 to ity of (VOLTAREN) 00:00: affected [place] 1 % gel 00 area QID Medical Branch lidocaine 5 2021-06 Yes [id number] Apply 2g [facility] % ointment 1-30 to ity of 00:00: affected [place] 00 areas BID Medical PRN Branch Diclofenac 2021-06 Yes [id number] Apply 4g [facility] Sodium 1-30 to ity of (VOLTAREN) 00:00: affected [place] 1 % gel 00 area QID Medical Branch lidocaine 5 2021-06 Yes [id number] Apply 2g [facility] % ointment 1-30 to ity of 00:00: affected [place] 00 areas BID Medical PRN Branch Diclofenac 2021-06 Yes [id number] Apply 4g [facility] Sodium 1-30 to ity of (VOLTAREN) 00:00: affected [place] 1 % gel 00 area QID Medical Branch lidocaine 5 2021-06 Yes [id number] Apply 2g [facility] % ointment 1-30 to ity of 00:00: affected [place] 00 areas BID Medical PRN Branch Diclofenac 2021-06 Yes [id number] Apply 4g [facility] Sodium 1-30 to ity of (VOLTAREN) 00:00: affected [place] 1 % gel 00 area QID Medical Branch lidocaine 5 2021-06 Yes [id number] Apply 2g [facility] % ointment 1-30 to ity of 00:00: affected [place] 00 areas BID Medical PRN Branch Diclofenac 2021-06 Yes [id number] Apply 4g [facility] Sodium 1-30 to ity of (VOLTAREN) 00:00: affected [place] 1 % gel 00 area QID Medical Branch lidocaine 5 2021-06 Yes [id number] Apply 2g [facility] % ointment 1-30 to ity of 00:00: affected [place] 00 areas BID Medical PRN Branch Diclofenac 2021-06 Yes [id number] Apply 4g [facility] Sodium 1-30 to ity of (VOLTAREN) 00:00: affected [place] 1 % gel 00 area QID Medical Branch lidocaine 5 2021-06 Yes [id number] Apply 2g [facility] % ointment 1-30 to ity of 00:00: affected [place] 00 areas BID Medical PRN Branch Diclofenac 2021-06 Yes [id number] Apply 4g [facility] Sodium 1-30 to ity of (VOLTAREN) 00:00: affected [place] 1 % gel 00 area [facility] Medical Branch lidocaine 5 2021-06 Yes [id number] Apply 2g [facility] % ointment 1-30 to ity of 00:00: affected [place] 00 areas BID Medical PRN Branch Diclofenac 2021-06 Yes [id number] Apply 4g [facility] Sodium 1-30 to ity of (VOLTAREN) 00:00: affected [place] 1 % gel 00 area [facility] Medical Branch lidocaine 5 2021-06 Yes [id number] Apply 2g [facility] % ointment 1-30 to ity of 00:00: affected [place] 00 areas BID Medical PRN Branch Diclofenac 2021-06 Yes [id number] Apply 4g [facility] Sodium 1-30 to ity of (VOLTAREN) 00:00: affected [place] 1 % gel 00 area [facility] Medical Branch lidocaine 5 2021-06 Yes [id number] Apply 2g [facility] % ointment 1-30 to ity of 00:00: affected [place] 00 areas BID Medical PRN Branch Diclofenac 2021-06 Yes [id number] Apply 4g [facility] Sodium 1-30 to ity of (VOLTAREN) 00:00: affected [place] 1 % gel 00 area [facility] Medical Branch lidocaine 5 2021-06 Yes [id number] Apply 2g [facility] % ointment 1-30 to ity of 00:00: affected [place] 00 areas BID Medical PRN Branch Diclofenac 2021-06 Yes [id number] Apply 4g [facility] Sodium 1-30 to ity of (VOLTAREN) 00:00: affected [place] 1 % gel 00 area [facility] Medical Branch levocetiriz 2021-06 Yes [id number] 5mg Take 1 [facility] ine 5 mg 1-30 tablet by ity of tablet 00:00: mouth at [place] 00 bedtime as Medical needed for Branch Allergies. amitriptyli 2021-06 Yes [id number] 5mg Take 0.5 [facility] ne 10 mg 1-30 tablets by ity o f tablet 00:00: mouth at [place] 00 bedtime. Medical Branch lidocaine 5 2021-06 Yes [id number] Apply 2g [facility] % ointment 1-30 to ity of 00:00: affected [place] 00 areas BID Medical PRN Branch Diclofenac 2021-06 Yes [id number] Apply 4g [facility] Sodium 1-30 to ity of (VOLTAREN) 00:00: affected [place] 1 % gel 00 area [facility] Medical Branch busPIRone 5 2021-06 Yes [id number] 5mg Take 1 [facility] mg tablet 1-30 tablet by ity o f 00:00: mouth 2 [place] (two) Medical times Branch daily as needed (Anxiety/D epression) . levocetiriz 2021-06 Yes [id number] 5mg Take 1 [facility] ine 5 mg 1-30 tablet by ity of tablet 00:00: mouth at [place] 00 bedtime as Medical needed for Branch Allergies. amitriptyli 2021-06 Yes [id number] 5mg Take 0.5 [facility] ne 10 mg 1-30 tablets by ity o f tablet 00:00: mouth at [place] 00 bedtime. Medical Branch lidocaine 5 2021-06 Yes [id number] Apply 2g [facility] % ointment 1-30 to ity of 00:00: affected [place] 00 areas BID Medical PRN Branch Diclofenac 2021-06 Yes [id number] Apply 4g [facility] Sodium 1-30 to ity of (VOLTAREN) 00:00: affected [place] 1 % gel 00 area [facility] Medical Branch busPIRone 5 2021-06 Yes [id number] 5mg Take 1 [facility] mg tablet 1-30 tablet by ity o f 00:00: mouth 2 [place] (two) Medical times Branch daily as needed (Anxiety/D epression) . levocetiriz 2021-06 Yes [id number] 5mg Take 1 [facility] ine 5 mg 1-30 tablet by ity of tablet 00:00: mouth at [place] 00 bedtime as Medical needed for Branch Allergies. amitriptyli 2021-06 Yes [id number] 5mg Take 0.5 [facility] ne 10 mg 1-30 tablets by ity o f tablet 00:00: mouth at [place] 00 bedtime. Medical Branch lidocaine 5 2021-06 Yes [id number] Apply 2g [facility] % ointment 1-30 to ity of 00:00: affected [place] 00 areas BID Medical PRN Branch Diclofenac 2021-06 Yes [id number] Apply 4g [facility] Sodium 1-30 to ity of (VOLTAREN) 00:00: affected [place] 1 % gel 00 area [facility] Medical Branch busPIRone 5 2021-06 Yes [id number] 5mg Take 1 [facility] mg tablet 1-30 tablet by ity o f 00:00: mouth 2 (two) Medical times Branch daily as needed (Anxiety/D epression) . levocetiriz 2021-06 Yes [id number] 5mg Take 1 [facility] ine 5 mg 1-30 tablet by ity of tablet 00:00: mouth at [place] 00 bedtime as Medical needed for Branch Allergies. amitriptyli 2021-06 Yes [id number] 5mg Take 0.5 [facility] ne 10 mg 1-30 tablets by ity o f tablet 00:00: mouth at [place] 00 bedtime. Medical Branch lidocaine 2021-06 Yes [id number] Apply 2g [facility] % ointment 1-30 to ity of 00:00: affected 00 areas BID Medical PRN Branch Diclofenac 2021-06 Yes [id number] Apply 4g [facility] Sodium 1-30 to ity of (VOLTAREN) 00:00: affected [place] as 1 % gel 00 area QID Medical Branch busPIRone 2021-06 Yes [id number] 5mg Take 1 [facility] mg tablet 1-30 tablet by ity o f 00:00: mouth 2 [place] (two) Medical times Branch daily as needed (Anxiety/D epression) . levocetiriz 2021-06 Yes [id number] 5mg Take 1 [facility] ine 5 mg 1-30 tablet by ity of tablet 00:00: mouth at [place] 00 bedtime as Medical needed for Branch Allergies. amitriptyli 2021-06 Yes [id number] 5mg Take 0.5 [facility] ne 10 mg 1-30 tablets by ity o f tablet 00:00: mouth at [place] 00 bedtime. Medical Branch lidocaine 2021-06 Yes [id number] Apply 2g [facility] % ointment 1-30 to ity of 00:00: affected 00 areas BID Medical PRN Branch Diclofenac 2021-06 Yes [id number] Apply 4g [facility] Sodium 1-30 to ity of (VOLTAREN) 00:00: affected [place] as 1 % gel 00 area QID Medical Branch busPIRone 5 2021-06 Yes [id number] 5mg Take 1 [facility] mg tablet 1-30 tablet by ity o f 00:00: mouth 2 (two) Medical times Branch daily as needed (Anxiety/D epression) . levocetiriz 2021-06 Yes [id number] 5mg Take 1 [facility] ine 5 mg 1-30 tablet by ity of tablet 00:00: mouth at [place] 00 bedtime as Medical needed for Branch Allergies. amitriptyli 2021-06 Yes [id number] 5mg Take 0.5 [facility] ne 10 mg 1-30 tablets by ity o f tablet 00:00: mouth at [place] 00 bedtime. Medical Branch lidocaine 5 2021-06 Yes [id number] Apply 2g [facility] % ointment 1-30 to ity of 00:00: affected [place] 00 areas BID Medical PRN Branch Diclofenac 2021-06 Yes [id number] Apply 4g [facility] Sodium 1-30 to ity of (VOLTAREN) 00:00: affected [place] as 1 % gel 00 area QID Medical Branch busPIRone 5 2021-06 Yes [id number] 5mg Take 1 [facility] mg tablet 1-30 tablet by ity o f 00:00: mouth 2 [place] (two) Medical times Branch daily as needed (Anxiety/D epression) . levocetiriz 2021-06 Yes [id number] 5mg Take 1 [facility] ine 5 mg 1-30 tablet by ity of tablet 00:00: mouth at [place] 00 bedtime as Medical needed for Branch Allergies. amitriptyli 2021-06 Yes [id number] 5mg Take 0.5 [facility] ne 10 mg 1-30 tablets by ity o f tablet 00:00: mouth at [place] 00 bedtime. Medical Branch lidocaine 5 2021-06 Yes [id number] Apply 2g [facility] % ointment 1-30 to ity of 00:00: affected 00 areas BID Medical PRN Branch Diclofenac 2021-06 Yes [id number] Apply 4g [facility] Sodium 1-30 to ity of (VOLTAREN) 00:00: affected [place] 1 % gel 00 area QID Medical Branch busPIRone 5 2021-06 Yes [id number] 5mg Take 1 [facility] mg tablet 1-30 tablet by ity o f 00:00: mouth 2 [place] (two) Medical times Branch daily as needed (Anxiety/D epression) . amitriptyli 2021-06 Yes [id number] 5mg Take 0.5 [facility] ne 10 mg 1-30 tablets by ity o f tablet 00:00: mouth at [place] 00 bedtime. Medical Branch lidocaine 2021-06 Yes [id number] Apply 2g [facility] % ointment 1-30 to ity of 00:00: affected 00 areas BID Medical PRN Branch Diclofenac 2021-06 Yes [id number] Apply 4g [facility] Sodium 1-30 to ity of (VOLTAREN) 00:00: affected [place] 1 % gel 00 area QID Medical Branch busPIRone 5 2021-06 Yes [id number] 5mg Take 1 [facility] mg tablet 1-30 tablet by ity o f 00:00: mouth 2 (two) Medical times Branch daily as needed (Anxiety/D epression) . amitriptyli 2021-06 Yes [id number] 5mg Take 0.5 [facility] ne 10 mg 1-30 tablets by ity o f tablet 00:00: mouth at [place] 00 bedtime. Medical Branch lidocaine 2021-06 Yes [id number] Apply 2g [facility] % ointment 1-30 to ity of 00:00: affected [place] 00 areas BID Medical PRN Branch Diclofenac 2021-06 Yes [id number] Apply 4g [facility] Sodium 1-30 to ity of (VOLTAREN) 00:00: affected [place] 1 % gel 00 area QID Medical Branch busPIRone 5 2021-06 Yes [id number] 5mg Take 1 [facility] mg tablet 1-30 tablet by ity o f 00:00: mouth 2 (two) Medical times Branch daily as needed (Anxiety/D epression) . lidocaine 2021-06 Yes [id number] Apply 2g [facility] % ointment 1-30 to ity of 00:00: affected 00 areas BID Medical PRN Branch Diclofenac 2021-06 Yes [id number] Apply 4g [facility] Sodium 1-30 to ity of (VOLTAREN) 00:00: affected [place] 1 % gel 00 area QID Medical Branch busPIRone 5 2021-06 Yes [id number] 5mg Take 1 [facility] mg tablet 1-30 tablet by ity o f 00:00: mouth 2 [place] (two) Medical times Branch daily as needed (Anxiety/D epression) . lidocaine 2021-06 Yes [id number] Apply 2g [facility] % ointment 1-30 to ity of 00:00: affected 00 areas BID Medical PRN Branch Diclofenac 2021-06 Yes [id number] Apply 4g [facility] Sodium 1-30 to ity of (VOLTAREN) 00:00: affected [place] 1 % gel 00 area [facility] Medical Branch busPIRone 2021-06 Yes [id number] 5mg Take 1 [facility] mg tablet 1-30 tablet by ity o f 00:00: mouth 2 (two) Medical times Branch daily as needed (Anxiety/D epression) . lidocaine 2021-06 Yes [id number] Apply 2g [facility] % ointment 1-30 to ity of 00:00: affected [place] 00 areas BID Medical PRN Branch Diclofenac 2021-06 Yes [id number] Apply 4g [facility] Sodium 1-30 to ity of (VOLTAREN) 00:00: affected [place] 1 % gel 00 area [facility] Medical Branch busPIRone 2021-06 Yes [id number] 5mg Take 1 [facility] mg tablet 1-30 tablet by ity o f 00:00: mouth 2 (two) Medical times Branch daily as needed (Anxiety/D epression) . lidocaine 2021-06 Yes [id number] Apply 2g [facility] % ointment 1-30 to ity of 00:00: affected [place] 00 areas BID Medical PRN Branch Diclofenac 2021-06 Yes [id number] Apply 4g [facility] Sodium 1-30 to ity of (VOLTAREN) 00:00: affected [place] 1 % gel 00 area [facility] Medical Branch busPIRone 2021-06 Yes [id number] 5mg Take 1 [facility] mg tablet 1-30 tablet by ity o f 00:00: mouth 2 (two) Medical times Branch daily as needed (Anxiety/D epression) . lidocaine 2021-06 Yes [id number] Apply 2g [facility] % ointment 1-30 to ity of 00:00: affected [place] 00 areas BID Medical PRN Branch Diclofenac 2021-06 Yes [id number] Apply 4g [facility] Sodium 1-30 to ity of (VOLTAREN) 00:00: affected [place] 1 % gel 00 area [facility] Medical Branch busPIRone 2021-06 Yes [id number] 5mg Take 1 [facility] mg tablet 1-30 tablet by ity o f 00:00: mouth 2 (two) Medical times Branch daily as needed (Anxiety/D epression) . lidocaine 2021-06 Yes [id number] Apply 2g [facility] % ointment 1-30 to ity of 00:00: affected [place] 00 areas BID Medical PRN Branch Diclofenac 2021-06 Yes [id number] Apply 4g [facility] Sodium 1-30 to ity of (VOLTAREN) 00:00: affected [place] 1 % gel 00 area QID Medical Branch lidocaine 5 2021-06 Yes [id number] Apply 2g [facility] % ointment 1-30 to ity of 00:00: affected [place] 00 areas BID Medical PRN Branch Diclofenac 2021-06 Yes [id number] Apply 4g [facility] Sodium 1-30 to ity of (VOLTAREN) 00:00: affected [place] 1 % gel 00 area QID Medical Branch lidocaine 5 2021-06 Yes [id number] Apply 2g [facility] % ointment 1-30 to ity of 00:00: affected [place] 00 areas BID Medical PRN Branch Diclofenac 2021-06 Yes [id number] Apply 4g [facility] Sodium 1-30 to ity of (VOLTAREN) 00:00: affected [place] 1 % gel 00 area QID Medical Branch lidocaine 5 2021-06 Yes [id number] Apply 2g [facility] % ointment 1-30 to ity of 00:00: affected [place] 00 areas BID Medical PRN Branch Diclofenac 2021-06 Yes [id number] Apply 4g [facility] Sodium 1-30 to ity of (VOLTAREN) 00:00: affected [place] 1 % gel 00 area QID Medical Branch lidocaine 5 2021-06 Yes [id number] Apply 2g [facility] % ointment 1-30 to ity of 00:00: affected [place] 00 areas BID Medical PRN Branch Diclofenac 2021-06 Yes [id number] Apply 4g [facility] Sodium 1-30 to ity of (VOLTAREN) 00:00: affected [place] 1 % gel 00 area QID Medical Branch lidocaine 5 2021-06 Yes [id number] Apply 2g [facility] % ointment 1-30 to ity of 00:00: affected [place] 00 areas BID Medical PRN Branch Diclofenac 2021-06 Yes [id number] Apply 4g [facility] Sodium 1-30 to ity of (VOLTAREN) 00:00: affected [place] 1 % gel 00 area QID Medical Branch lidocaine 5 2021-06 Yes [id number] Apply 2g [facility] % ointment 1-30 to ity of 00:00: affected [place] 00 areas BID Medical PRN Branch Diclofenac 2021-06 Yes [id number] Apply 4g [facility] Sodium 30 to ity of (VOLTAREN) 00:00: affected [place] 1 % gel 00 area QID Medical Branch busPIRone 5 2021-06- No [id number] 5mg Take 1 [facility] mg tablet 07-09- tablet by ity of 00:00: 00:00 mouth 2 [place] 00 :00 (two) Medical times Branch daily as needed (Anxiety/D epression) . busPIRone 5 2021-06- No [id number] 5mg Take 1 [facility] mg tablet 07-09- tablet by ity of 00:00: 00:00 mouth 2 [place] 00 :00 (two) Medical times Branch daily as needed (Anxiety/D epression) . amitriptyli 2021-06- No [id number] 5mg Take 0.5 [facility] ne 10 mg 07-09 tablets by ity of tablet 00:00: 00:00 mouth at [place] 00 :00 bedtime. Medical Branch levocetiriz 2021-06- No [id number] 5mg Take 1 [facility] ine 5 mg 07-09 tablet by ity o f tablet 00:00: 00:00 mouth at [place] 00 :00 bedtime as Medical needed for Branch Allergies. HYDROcodone 2021-06 Yes Univer s -acetaminop 1-21 ity of hen 10-325 00:00: [place] mg tablet 00 Medical Branch HYDROcodone 2021-06 Yes Univer s -acetaminop 1-21 ity of hen 10-325 00:00: [place] mg tablet 00 Medical Branch HYDROcodone 2021-06 Yes Univer s -acetaminop 1-21 ity of hen 10-325 00:00: [place] mg tablet 00 Medical Branch HYDROcodone 2021-06 Yes Univer s -acetaminop 1-21 ity of hen 10-325 00:00: [place] mg tablet 00 Medical Branch HYDROcodone 2021-06 Yes Univer s -acetaminop 1-21 ity of hen 10-325 00:00: [place] mg tablet 00 Medical Branch HYDROcodone 2021-06 Yes Univer s -acetaminop 1-21 ity of hen 10-325 00:00: [place] mg tablet 00 Medical Branch HYDROcodone 2021-06 Yes Univer s -acetaminop 1-21 ity of hen 10-325 00:00: [place] mg tablet 00 Medical Branch HYDROcodone 2021-06 Yes Univer s -acetaminop 1-21 ity of hen 10-325 00:00: [place] mg tablet 00 Medical Branch HYDROcodone 2021-06 Yes Univer s -acetaminop 1-21 ity of hen 10-325 00:00: [place] mg tablet 00 Medical Branch HYDROcodone 2021-06 Yes Univer s -acetaminop 1-21 ity of hen 10-325 00:00: [place] mg tablet 00 Medical Branch HYDROcodone 2021-06 Yes Univer s -acetaminop 1-21 ity of hen 10-325 00:00: [place] mg tablet 00 Medical Branch HYDROcodone 2021-06 Yes Univer s -acetaminop 1-21 ity of hen 10-325 00:00: [place] mg tablet 00 Medical Branch HYDROcodone 2021-06 Yes Univer s -acetaminop 1-21 ity of hen 10-325 00:00: [place] mg tablet 00 Medical Branch HYDROcodone 2021-06 Yes Univer s -acetaminop 1-21 ity of hen 10-325 00:00: [place] mg tablet 00 Medical Branch HYDROcodone 2021-06 Yes Univer s -acetaminop 1-21 ity of hen 10-325 00:00: [place] mg tablet 00 Medical Branch HYDROcodone 2021-06 Yes Univer s -acetaminop 1-21 ity of hen 10-325 00:00: [place] mg tablet 00 Medical Branch HYDROcodone 2021-06 Yes Univer s -acetaminop 1-21 ity of hen 10-325 00:00: [place] mg tablet 00 Medical Branch HYDROcodone 2021-06 Yes Univer s -acetaminop 1-21 ity of hen 10-325 00:00: [place] mg tablet 00 Medical Branch HYDROcodone 2021-06 Yes Univer s -acetaminop 1-21 ity of hen 10-325 00:00: [place] mg tablet 00 Medical Branch HYDROcodone 2021-06 Yes Univer s -acetaminop 1-21 ity of hen 10-325 00:00: [place] mg tablet 00 Medical Branch HYDROcodone 2021-06 Yes Univer s -acetaminop 1-21 ity of hen 10-325 00:00: [place] mg tablet 00 Medical Branch HYDROcodone 2021-06 Yes Univer s -acetaminop 1-21 ity of hen 10-325 00:00: [place] mg tablet 00 Medical Branch HYDROcodone 2021-06 Yes Univer s -acetaminop 1-21 ity of hen 10-325 00:00: [place] mg tablet 00 Medical Branch HYDROcodone 2021-06 Yes Univer s -acetaminop 1-21 ity of hen 10-325 00:00: [place] mg tablet 00 Medical Branch HYDROcodone 2021-06 Yes Univer s -acetaminop 1-21 ity of hen 10-325 00:00: [place] mg tablet 00 Medical Branch HYDROcodone 2021-06 Yes Univer s -acetaminop 1-21 ity of hen 10-325 00:00: [place] mg tablet 00 Medical Branch HYDROcodone 2021-06 Yes Univer s -acetaminop 1-21 ity of hen 10-325 00:00: [place] mg tablet 00 Medical Branch HYDROcodone 2021-06 Yes Univer s -acetaminop 1-21 ity of hen 10-325 00:00: [place] mg tablet 00 Medical Branch HYDROcodone 2021-06 Yes Univer s -acetaminop 1-21 ity of hen 10-325 00:00: [place] mg tablet 00 Medical Branch HYDROcodone 2021-06 Yes Univer s -acetaminop 1-21 ity of hen 10-325 00:00: [place] mg tablet 00 Medical Branch HYDROcodone 2021-06 Yes Univer s -acetaminop 1-21 ity of hen 10-325 00:00: [place] mg tablet 00 Medical Branch HYDROcodone 2021-06 Yes Univer s -acetaminop 1-21 ity of hen 10-325 00:00: [place] mg tablet 00 Medical Branch HYDROcodone 2021-06 Yes Univer s -acetaminop 1-21 ity of hen 10-325 00:00: [place] mg tablet 00 Medical Branch HYDROcodone 2021-06 Yes Univer s -acetaminop 1-21 ity of hen 10-325 00:00: [place] mg tablet 00 Medical Branch HYDROcodone 2021-06 Yes Univer s -acetaminop 1-21 ity of hen 10-325 00:00: [place] mg tablet 00 Medical Branch HYDROcodone 2021-06 Yes Univer s -acetaminop 1-21 ity of hen 10-325 00:00: [place] mg tablet 00 [facility] HYDROcodone 2021-06 Yes Univer s -acetaminop 1-21 ity of hen 10-325 00:00: [place] mg tablet 00 [facility] HYDROcodone 2021-06 Yes Univer s -acetaminop 1-21 ity of hen 10-325 00:00: [place] mg tablet 00 [facility] HYDROcodone 2021-06 Yes Univer s -acetaminop 1-21 ity of hen 10-325 00:00: [place] mg tablet 00 [facility] HYDROcodone 2021-06 Yes Univer s -acetaminop 1-21 ity of hen 10-325 00:00: [place] mg tablet 00 [facility] HYDROcodone 2021-06 Yes Univer s -acetaminop 1-21 ity of hen 10-325 00:00: [place] mg tablet 00 [facility] HYDROcodone 2021-06 Yes Univer s -acetaminop 1-21 ity of hen 10-325 00:00: [place] mg tablet 00 [facility] HYDROcodone 2021-06 Yes Univer s -acetaminop 1-21 ity of hen 10-325 00:00: [place] mg tablet 00 [facility] HYDROcodone 2021-06 Yes Univer s -acetaminop 1-21 ity of hen 10-325 00:00: [place] mg tablet 00 [facility] ondansetron 2021-06 Yes 4mg Take 4 mg [facility] T (Zofran) 4 1-11 by mouth. Heal th MG tablet 11:24: 25 ondansetron 2021-06 Yes 4mg Take 4 mg [facility] T (Zofran) 4 1-11 by mouth. Heal th MG tablet 11:24: 25 metoprolol 2021-06 Yes [id number] 100mg Take 1 [facility] succinate 1-02 tablet by ity o f XL (TOPROL 00:00: mouth in [place] XL) 100 mg 00 the Medical 24 hr morning. Branch tablet metoprolol 2021-06 Yes [id number] 100mg Take 1 [facility] succinate 1-02 tablet by ity o f XL (TOPROL 00:00: mouth in [place] XL) 100 mg 00 the Medical 24 hr morning. Branch tablet metoprolol 2021-06 Yes [id number] 100mg Take 1 [facility] succinate 1-02 tablet by ity o f XL (TOPROL 00:00: mouth in [place] XL) 100 mg 00 the Medical 24 hr morning. Branch tablet metoprolol 2021-06 Yes [id number] 100mg Take 1 [facility] succinate 1-02 tablet by ity o f XL (TOPROL 00:00: mouth in [place] XL) 100 mg 00 the Medical 24 hr morning. Branch tablet metoprolol 2021-06 Yes [id number] 100mg Take 1 [facility] succinate 1-02 tablet by ity o f XL (TOPROL 00:00: mouth in [place] XL) 100 mg 00 the Medical 24 hr morning. Branch tablet metoprolol 2021-06 Yes [id number] 100mg Take 1 [facility] succinate 1-02 tablet by ity o f XL (TOPROL 00:00: mouth in [place] XL) 100 mg 00 the Medical 24 hr morning. Branch tablet metoprolol 2021-06 Yes [id number] 100mg Take 1 [facility] succinate 1-02 tablet by ity o f XL (TOPROL 00:00: mouth in [place] XL) 100 mg 00 the Medical 24 hr morning. Branch tablet metoprolol 2021-06 Yes [id number] 100mg Take 1 [facility] succinate 1-02 tablet by ity o f XL (TOPROL 00:00: mouth in [place] XL) 100 mg 00 the Medical 24 hr morning. Branch tablet metoprolol 2021-06 Yes [id number] 100mg Take 1 [facility] succinate 1-02 tablet by ity o f XL (TOPROL 00:00: mouth in [place] XL) 100 mg 00 the Medical 24 hr morning. Branch tablet metoprolol 2021-06 Yes [id number] 100mg Take 1 [facility] succinate 1-02 tablet by ity o f XL (TOPROL 00:00: mouth in [place] XL) 100 mg 00 the Medical 24 hr morning. Branch tablet metoprolol 2021-06 Yes [id number] 100mg Take 1 [facility] succinate 1-02 tablet by ity o f XL (TOPROL 00:00: mouth in [place] XL) 100 mg 00 the Medical 24 hr morning. Branch tablet metoprolol 2021-06 Yes [id number] 100mg Take 1 [facility] succinate 1-02 tablet by ity o f XL (TOPROL 00:00: mouth in [place] XL) 100 mg 00 the Medical 24 hr morning. Branch tablet metoprolol 2021-06 Yes [id number] 100mg Take 1 [facility] succinate 1-02 tablet by ity o f XL (TOPROL 00:00: mouth in [place] XL) 100 mg 00 the Medical 24 hr morning. Branch tablet metoprolol 2021-06 Yes [id number] 100mg Take 1 [facility] succinate 1-02 tablet by ity o f XL (TOPROL 00:00: mouth in [place] XL) 100 mg 00 the Medical 24 hr morning. Branch tablet metoprolol 2021-06 Yes [id number] 100mg Take 1 [facility] succinate 1-02 tablet by ity o f XL (TOPROL 00:00: mouth in [place] XL) 100 mg 00 the Medical 24 hr morning. Branch tablet metoprolol 2021-06 Yes [id number] 100mg Take 1 [facility] succinate 1-02 tablet by ity o f XL (TOPROL 00:00: mouth in [place] XL) 100 mg 00 the Medical 24 hr morning. Branch tablet metoprolol 2021-06 Yes [id number] 100mg Take 1 [facility] succinate 1-02 tablet by ity o f XL (TOPROL 00:00: mouth in [place] XL) 100 mg 00 the Medical 24 hr morning. Branch tablet metoprolol 2021-06 Yes 1{tbl} Take 1 [facility] succinate 1-02 tablet by Healt [facility] XL 00:00: mouth 1 (Toprol-XL) 00 (one) time 100 MG 24 each day hr tablet in the morning. metoprolol 2021-06 Yes 1{tbl} Take 1 [facility] succinate 1-02 tablet by Healt [facility] XL 00:00: mouth 1 (Toprol-XL) 00 (one) time 100 MG 24 each day hr tablet in the morning. metoprolol 2021-06- No [id number] 100mg Take 1 [facility] succinate 1-02 05-19 tablet by ity of XL (TOPROL 00:00: 00:00 mouth in [place] XL) 100 mg 00 :00 the Medical 24 hr morning. Branch tablet furosemide 2021-06- No 20mg Take 20 mg [facility] 20 mg 0-18 10-18 by mouth ity of tablet 12:08: 00:00 in the [place] 16 :00 morning. Medical Branch furosemide 2021-06- No 20mg Take 20 mg [facility] 20 mg 0-18 10-18 by mouth ity of tablet 12:08: 00:00 in the [place] 16 :00 morning. Medical Branch TOPROL XL 2021-06- No 1 1/2 tab U nivers 50 MG ORAL 0-18 10-18 daily ity of TB24 12:08: 00:00 [place] 09 :00 Medical Branch TOPROL XL 2021-06- No 1 1/2 tab U nivers 50 MG ORAL 0-18 10-18 daily ity of TB24 12:08: 00:00 [place] 09 :00 Medical Branch NIACIN 500 2021-06- No 2 tabs Uni vers MG ORAL TAB 0-18 10-18 daily ity of 11:41: 00:00 [place] 41 :00 Medical Branch NIACIN 500 2021-06- No 2 tabs Uni vers MG ORAL TAB 0-18 10-18 daily ity of 11:41: 00:00 [place] 41 :00 Medical Branch ondansetron 2021-06 Yes 4mg Take 4 mg U nivers 4 mg tablet 0-18 by mouth ity of 11:03: every 8 [place] 44 (eight) Medical hours as Branch needed. ondansetron 2021-06 Yes 4mg Take 4 mg U nivers 4 mg tablet 0-18 by mouth ity of 11:03: every 8 [place] 44 (eight) Medical hours as Branch needed. ondansetron 2021-06 Yes 4mg Take 4 mg U nivers 4 mg tablet 0-18 by mouth ity of 11:03: every 8 [place] 44 (eight) Medical hours as Branch needed. ondansetron 2021-06 Yes 4mg Take 4 mg U nivers 4 mg tablet 0-18 by mouth ity of 11:03: every 8 [place] 44 (eight) Medical hours as Branch needed. ondansetron 2021-06 Yes 4mg Take 4 mg U nivers 4 mg tablet 0-18 by mouth ity of 11:03: every 8 [place] 44 (eight) Medical hours as Branch needed. ondansetron 2021-06 Yes 4mg Take 4 mg U nivers 4 mg tablet 0-18 by mouth ity of 11:03: every 8 [place] 44 (eight) Medical hours as Branch needed. ondansetron 2021-06 Yes 4mg Take 4 mg U nivers 4 mg tablet 0-18 by mouth ity of 11:03: every 8 [place] 44 (eight) Medical hours as Branch needed. ipratropium 2021-06 Yes [id number] .5mg Inhale 2.5 [facility] 0.02 % 0-18 mL every 6 ity of nebulizer 00:00: (six) [place] solution 00 hours as Medical needed for Branch Wheezing or Shortness of Breath. fluticasone 2021-06 Yes [id number] 2{puff} Inhale 2 [facility] propionate 0-18 Puffs ity of (FLOVENT 00:00: every 12 [place] HFA) 110 00 (twelve) Medical mcg/actuati hours. Branch on inhaler albuterol 2021-06 Yes [id number] 2.5mg Inhale 0.5 [facility] 2.5 mg/0.5 0-18 mL every 6 ity of mL 00:00: (six) [place] nebulizer 00 hours as Medica l solution needed for Branc h Wheezing. amitriptyli 2021-06 Yes [id number] 5mg Take 0.5 [facility] ne 10 mg 0-18 tablets by ity o f tablet 00:00: mouth at [place] 00 bedtime. Medical Branch traMADoL-ac 2021-06 Yes [id number] 1{tbl} Take 1 [facility] etaminophen 0-18 tablet by ity of 37.5-325 mg 00:00: mouth [place] per tablet 00 every 6 Medica l (six) Branch hours as needed for Pain. Indication s: chronic pain famotidine 2021-06 Yes [id number] 20mg Take 1 [facility] 20 mg 0-18 tablet by ity of tablet 00:00: mouth in [place] 00 the Medical morning Branch and 1 tablet in the evening. albuterol 2021-06 Yes [id number] 2.5mg Inhale 3 [facility] 2.5 mg /3 0-18 mL every 6 ity of mL (0.083 00:00: (six) [place] %) 00 hours as Medical nebulizer needed for Bran ch solution Wheezing or Shortness of Breath. ipratropium 2021-06 Yes [id number] .5mg Inhale 2.5 [facility] 0.02 % 0-18 mL every 6 ity of nebulizer 00:00: (six) [place] solution 00 hours as Medical needed for Branch Wheezing or Shortness of Breath. fluticasone 2021-06 Yes [id number] 2{puff} Inhale 2 [facility] propionate 0-18 Puffs ity of (FLOVENT 00:00: every 12 [place] HFA) 110 00 (twelve) Medical mcg/actuati hours. Branch on inhaler albuterol 2021-06 Yes [id number] 2.5mg Inhale 0.5 [facility] 2.5 mg/0.5 0-18 mL every 6 ity of mL 00:00: (six) [place] nebulizer 00 hours as Medica l solution needed for Branc h Wheezing. lidocaine 2021-06 Yes [id number] 1{patch Apply 1 [facility] 1.8 % PtMd 0-18 } Patch to ity o f 00:00: area(s) [place] 00 daily. Medical Branch lidocaine 2021-06 Yes [id number] 1{patch Apply 1 [facility] 1.8 % PtMd 0-18 } Patch to ity o f 00:00: area(s) [place] 00 daily. Medical Branch famotidine 2021-06 Yes [id number] 20mg Take 1 [facility] 20 mg 0-18 tablet by ity of tablet 00:00: mouth in [place] 00 the Medical morning Branch and 1 tablet in the evening. albuterol 2021-06 Yes [id number] 2.5mg Inhale 3 [facility] 2.5 mg /3 0-18 mL every 6 ity of mL (0.083 00:00: (six) [place] %) 00 hours as Medical nebulizer needed for Bran ch solution Wheezing or Shortness of Breath. ipratropium 2021-06 Yes [id number] .5mg Inhale 2.5 [facility] 0.02 % 0-18 mL every 6 ity of nebulizer 00:00: (six) [place] solution 00 hours as Medical needed for Branch Wheezing or Shortness of Breath. fluticasone 2021-06 Yes [id number] 2{puff} Inhale 2 [facility] propionate 0-18 Puffs ity of (FLOVENT 00:00: every 12 [place] HFA) 110 00 (twelve) Medical mcg/actuati hours. Branch on inhaler albuterol 2021-06 Yes [id number] 2.5mg Inhale 0.5 [facility] 2.5 mg/0.5 0-18 mL every 6 ity of mL 00:00: (six) [place] nebulizer 00 hours as Medica l solution needed for Branc h Wheezing. lidocaine 2021-06 Yes [id number] 1{patch Apply 1 [facility] 1.8 % PtMd 0-18 } Patch to ity o f 00:00: area(s) [place] 00 daily. Medical Branch famotidine 2021-06 Yes [id number] 20mg Take 1 [facility] 20 mg 0-18 tablet by ity of tablet 00:00: mouth in [place] 00 the Medical morning Branch and 1 tablet in the evening. albuterol 2021-06 Yes [id number] 2.5mg Inhale 3 [facility] 2.5 mg /3 0-18 mL every 6 ity of mL (0.083 00:00: (six) [place] %) 00 hours as Medical nebulizer needed for Bran ch solution Wheezing or Shortness of Breath. ipratropium 2021-06 Yes [id number] .5mg Inhale 2.5 [facility] 0.02 % 0-18 mL every 6 ity of nebulizer 00:00: (six) [place] solution 00 hours as Medical needed for Branch Wheezing or Shortness of Breath. fluticasone 2021-06 Yes [id number] 2{puff} Inhale 2 [facility] propionate 0-18 Puffs ity of (FLOVENT 00:00: every 12 [place] HFA) 110 00 (twelve) Medical mcg/actuati hours. Branch on inhaler albuterol 2021-06 Yes [id number] 2.5mg Inhale 0.5 [facility] 2.5 mg/0.5 0-18 mL every 6 ity of mL 00:00: (six) [place] nebulizer 00 hours as Medica l solution needed for Branc h Wheezing. lidocaine 2021-06 Yes [id number] 1{patch Apply 1 [facility] 1.8 % PtMd 0-18 } [facility] famotidine 2021-06 Yes [id number] 20mg Take 1 [facility] 20 mg 0-18 tablet by ity of tablet 00:00: mouth in [place] 00 the Medical morning Branch and 1 tablet in the evening. albuterol 2021-06 Yes [id number] 2.5mg Inhale 3 [facility] 2.5 mg /3 0-18 mL every 6 ity of mL (0.083 00:00: (six) [place] %) 00 hours as Medical nebulizer needed for Bran ch solution Wheezing or Shortness of Breath. ipratropium 2021-06 Yes [id number] .5mg Inhale 2.5 [facility] 0.02 % 0-18 mL every 6 ity of nebulizer 00:00: (six) [place] solution 00 hours as Medical needed for Branch Wheezing or Shortness of Breath. fluticasone 2021-06 Yes [id number] 2{puff} Inhale 2 [facility] propionate 0-18 Puffs ity of (FLOVENT 00:00: every 12 [place] HFA) 110 00 (twelve) Medical mcg/actuati hours. Branch on inhaler albuterol 2021-06 Yes [id number] 2.5mg Inhale 0.5 [facility] 2.5 mg/0.5 0-18 mL every 6 ity of mL 00:00: (six) [place] nebulizer 00 hours as Medica l solution needed for Branc h Wheezing. lidocaine 2021-06 Yes [id number] 1{patch Apply 1 [facility] 1.8 % PtMd 0-18 } Patch to ity o f 00:00: area(s) [place] 00 daily. Medical Branch famotidine 2021-06 Yes [id number] 20mg Take 1 [facility] 20 mg 0-18 tablet by ity of tablet 00:00: mouth in [place] 00 the Medical morning Branch and 1 tablet in the evening. albuterol 2021-06 Yes [id number] 2.5mg Inhale 3 [facility] 2.5 mg /3 0-18 mL every 6 ity of mL (0.083 00:00: (six) [place] %) 00 hours as Medical nebulizer needed for Bran ch solution Wheezing or Shortness of Breath. ipratropium 2021-06 Yes [id number] .5mg Inhale 2.5 [facility] 0.02 % 0-18 mL every 6 ity of nebulizer 00:00: (six) [place] solution 00 hours as Medical needed for Branch Wheezing or Shortness of Breath. fluticasone 2021-06 Yes [id number] 2{puff} Inhale 2 [facility] propionate 0-18 Puffs ity of (FLOVENT 00:00: every 12 [place] HFA) 110 00 (twelve) Medical mcg/actuati hours. Branch on inhaler albuterol 2021-06 Yes [id number] 2.5mg Inhale 0.5 [facility] 2.5 mg/0.5 0-18 mL every 6 ity of mL 00:00: (six) [place] nebulizer 00 hours as Medica l solution needed for Branc h Wheezing. lidocaine 2021-06 Yes [id number] 1{patch Apply 1 [facility] 1.8 % PtMd 0-18 } Patch to ity o f 00:00: area() [place] 00 daily. Medical Branch famotidine 2021-06 Yes [id number] 20mg Take 1 [facility] 20 mg 0-18 tablet by ity of tablet 00:00: mouth in [place] 00 the Medical morning Branch and 1 tablet in the evening. albuterol 2021-06 Yes [id number] 2.5mg Inhale 3 [facility] 2.5 mg /3 0-18 mL every 6 ity of mL (0.083 00:00: (six) [place] %) 00 hours as Medical nebulizer needed for Bran ch solution Wheezing or Shortness of Breath. ipratropium 2021-06 Yes [id number] .5mg Inhale 2.5 [facility] 0.02 % 0-18 mL every 6 ity of nebulizer 00:00: (six) [place] solution 00 hours as Medical needed for Branch Wheezing or Shortness of Breath. fluticasone 2021-06 Yes [id number] 2{puff} Inhale 2 [facility] propionate 0-18 Puffs ity of (FLOVENT 00:00: every 12 [place] HFA) 110 00 (twelve) Medical mcg/actuati hours. Branch on inhaler albuterol 2021-06 Yes [id number] 2.5mg Inhale 0.5 [facility] 2.5 mg/0.5 0-18 mL every 6 ity of mL 00:00: (six) [place] nebulizer 00 hours as Medica l solution needed for Branc h Wheezing. lidocaine 2021-06 Yes [id number] 1{patch Apply 1 [facility] 1.8 % PtMd 0-18 } Patch to ity o f 00:00: area() [place] 00 daily. Medical Branch famotidine 2021-06 Yes [id number] 20mg Take 1 [facility] 20 mg 0-18 tablet by ity of tablet 00:00: mouth in [place] 00 the Medical morning Branch and 1 tablet in the evening. albuterol 2021-06 Yes [id number] 2.5mg Inhale 3 [facility] 2.5 mg /3 0-18 mL every 6 ity of mL (0.083 00:00: (six) [place] %) 00 hours as Medical nebulizer needed for Bran ch solution Wheezing or Shortness of Breath. ipratropium 2021-06 Yes [id number] .5mg Inhale 2.5 [facility] 0.02 % 0-18 mL every 6 ity of nebulizer 00:00: (six) [place] solution 00 hours as Medical needed for Branch Wheezing or Shortness of Breath. fluticasone 2021-06 Yes [id number] 2{puff} Inhale 2 [facility] propionate 0-18 Puffs ity of (FLOVENT 00:00: every 12 [place] HFA) 110 00 (twelve) Medical mcg/actuati hours. Branch on inhaler albuterol 2021-06 Yes [id number] 2.5mg Inhale 0.5 [facility] 2.5 mg/0.5 0-18 mL every 6 ity of mL 00:00: (six) [place] nebulizer 00 hours as Medica l solution needed for Branc h Wheezing. lidocaine 2021-06 Yes [id number] 1{patch Apply 1 [facility] 1.8 % PtMd 0-18 } Patch to ity o f 00:00: area(s) [place] 00 daily. Medical Branch famotidine 2021-06 Yes [id number] 20mg Take 1 [facility] 20 mg 0-18 tablet by ity of tablet 00:00: mouth in [place] 00 the Medical morning Branch and 1 tablet in the evening. albuterol 2021-06 Yes [id number] 2.5mg Inhale 3 [facility] 2.5 mg /3 0-18 mL every 6 ity of mL (0.083 00:00: (six) [place] %) 00 hours as Medical nebulizer needed for Bran ch solution Wheezing or Shortness of Breath. ipratropium 2021-06 Yes [id number] .5mg Inhale 2.5 [facility] 0.02 % 0-18 mL every 6 ity of nebulizer 00:00: (six) [place] solution 00 hours as Medical needed for Branch Wheezing or Shortness of Breath. fluticasone 2021-06 Yes [id number] 2{puff} Inhale 2 [facility] propionate 0-18 Puffs ity of (FLOVENT 00:00: every 12 [place] HFA) 110 00 (twelve) Medical mcg/actuati hours. Branch on inhaler albuterol 2021-06 Yes [id number] 2.5mg Inhale 0.5 [facility] 2.5 mg/0.5 0-18 mL every 6 ity of mL 00:00: (six) [place] nebulizer 00 hours as Medica l solution needed for Branc h Wheezing. lidocaine 2021-06 Yes [id number] 1{patch Apply 1 [facility] 1.8 % PtMd 0-18 } Patch to ity o f 00:00: area() [place] 00 daily. Medical Branch famotidine 2021-06 Yes [id number] 20mg Take 1 [facility] 20 mg 0-18 tablet by ity of tablet 00:00: mouth in [place] 00 the Medical morning Branch and 1 tablet in the evening. albuterol 2021-06 Yes [id number] 2.5mg Inhale 3 [facility] 2.5 mg /3 0-18 mL every 6 ity of mL (0.083 00:00: (six) [place] %) 00 hours as Medical nebulizer needed for Bran ch solution Wheezing or Shortness of Breath. ipratropium 2021-06 Yes [id number] .5mg Inhale 2.5 [facility] 0.02 % 0-18 mL every 6 ity of nebulizer 00:00: (six) [place] solution 00 hours as Medical needed for Branch Wheezing or Shortness of Breath. fluticasone 2021-06 Yes [id number] 2{puff} Inhale 2 [facility] propionate 0-18 Puffs ity of (FLOVENT 00:00: every 12 [place] HFA) 110 00 (twelve) Medical mcg/actuati hours. Branch on inhaler albuterol 2021-06 Yes [id number] 2.5mg Inhale 0.5 [facility] 2.5 mg/0.5 0-18 mL every 6 ity of mL 00:00: (six) [place] nebulizer 00 hours as Medica l solution needed for Branc h Wheezing. lidocaine 2021-06 Yes [id number] 1{patch Apply 1 [facility] 1.8 % PtMd 0-18 } Patch to ity o f 00:00: area(s) [place] 00 daily. Medical Branch famotidine 2021-06 Yes [id number] 20mg Take 1 [facility] 20 mg 0-18 tablet by ity of tablet 00:00: mouth in [place] 00 the Medical morning Branch and 1 tablet in the evening. albuterol 2021-06 Yes [id number] 2.5mg Inhale 3 [facility] 2.5 mg /3 0-18 mL every 6 ity of mL (0.083 00:00: (six) [place] %) 00 hours as Medical nebulizer needed for Bran ch solution Wheezing or Shortness of Breath. ipratropium 2021-06 Yes [id number] .5mg Inhale 2.5 [facility] 0.02 % 0-18 mL every 6 ity of nebulizer 00:00: (six) [place] solution 00 hours as Medical needed for Branch Wheezing or Shortness of Breath. fluticasone 2021-06 Yes [id number] 2{puff} Inhale 2 [facility] propionate 0-18 Puffs ity of (FLOVENT 00:00: every 12 [place] HF) 110 00 (twelve) Medical mcg/actuati hours. Branch on inhaler albuterol 2021-06 Yes [id number] 2.5mg Inhale 0.5 [facility] 2.5 mg/0.5 0-18 mL every 6 ity of mL 00:00: (six) [place] nebulizer 00 hours as Medica l solution needed for Branc h Wheezing. lidocaine 2021-06 Yes [id number] 1{patch Apply 1 [facility] 1.8 % PtMd 0-18 } Patch to ity o f 00:00: area(s) [place] 00 daily. Medical Branch famotidine 2021-06 Yes [id number] 20mg Take 1 [facility] 20 mg 0-18 tablet by ity of tablet 00:00: mouth in [place] 00 the Medical morning Branch and 1 tablet in the evening. albuterol 2021-06 Yes [id number] 2.5mg Inhale 3 [facility] 2.5 mg /3 0-18 mL every 6 ity of mL (0.083 00:00: (six) [place] %) 00 hours as Medical nebulizer needed for Bran ch solution Wheezing or Shortness of Breath. ipratropium 2021-06 Yes [id number] .5mg Inhale 2.5 [facility] 0.02 % 0-18 mL every 6 ity of nebulizer 00:00: (six) [place] solution 00 hours as Medical needed for Branch Wheezing or Shortness of Breath. fluticasone 2021-06 Yes [id number] 2{puff} Inhale 2 [facility] propionate 0-18 Puffs ity of (FLOVENT 00:00: every 12 [facility] [place] [facility]) 110 00 (twelve) Medical mcg/actuati hours. Branch on inhaler albuterol 2021-06 Yes [id number] 2.5mg Inhale 0.5 [facility] 2.5 mg/0.5 0-18 mL every 6 ity of mL 00:00: (six) [place] nebulizer 00 hours as Medica l solution needed for Branc h Wheezing. lidocaine 2021-06 Yes [id number] 1{patch Apply 1 [facility] 1.8 % PtMd 0-18 } Patch to ity o f 00:00: area(s) [place] 00 daily. Medical Branch famotidine 2021-06 Yes [id number] 20mg Take 1 [facility] 20 mg 0-18 tablet by ity of tablet 00:00: mouth in [place] 00 the Medical morning Branch and 1 tablet in the evening. albuterol 2021-06 Yes [id number] 2.5mg Inhale 3 [facility] 2.5 mg /3 0-18 mL every 6 ity of mL (0.083 00:00: (six) [place] %) 00 hours as Medical nebulizer needed for Bran ch solution Wheezing or Shortness of Breath. ipratropium 2021-06 Yes [id number] .5mg Inhale 2.5 [facility] 0.02 % 0-18 mL every 6 ity of nebulizer 00:00: (six) [place] solution 00 hours as Medical needed for Branch Wheezing or Shortness of Breath. fluticasone 2021-06 Yes [id number] 2{puff} Inhale 2 [facility] propionate 0-18 Puffs ity of (FLOVENT 00:00: every 12 [place] HFA) 110 00 (twelve) Medical mcg/actuati hours. Branch on inhaler albuterol 2021-06 Yes [id number] 2.5mg Inhale 0.5 [facility] 2.5 mg/0.5 0-18 mL every 6 ity of mL 00:00: (six) [place] nebulizer 00 hours as Medica l solution needed for Branc h Wheezing. lidocaine 2021-06 Yes [id number] 1{patch Apply 1 [facility] 1.8 % PtMd 0-18 } Patch to ity o f 00:00: area(s) [place] 00 daily. Medical Branch famotidine 2021-06 Yes [id number] 20mg Take 1 [facility] 20 mg 0-18 tablet by ity of tablet 00:00: mouth in [place] 00 the Medical morning Branch and 1 tablet in the evening. albuterol 2021-06 Yes [id number] 2.5mg Inhale 3 [facility] 2.5 mg /3 0-18 mL every 6 ity of mL (0.083 00:00: (six) [place] %) 00 hours as Medical nebulizer needed for Bran ch solution Wheezing or Shortness of Breath. ipratropium 2021-06 Yes [id number] .5mg Inhale 2.5 [facility] 0.02 % 0-18 mL every 6 ity of nebulizer 00:00: (six) [place] solution 00 hours as Medical needed for Branch Wheezing or Shortness of Breath. fluticasone 2021-06 Yes [id number] 2{puff} Inhale 2 [facility] propionate 0-18 Puffs ity of (FLOVENT 00:00: every 12 [place] HFA) 110 00 (twelve) Medical mcg/actuati hours. Branch on inhaler albuterol 2021-06 Yes [id number] 2.5mg Inhale 0.5 [facility] 2.5 mg/0.5 0-18 mL every 6 ity of mL 00:00: (six) [place] nebulizer 00 hours as Medica l solution needed for Branc h Wheezing. lidocaine 2021-06 Yes [id number] 1{patch Apply 1 [facility] 1.8 % PtMd 0-18 } Patch to ity o f 00:00: area(s) [place] 00 daily. Medical Branch hydroCHLORO 2021-06 Yes [id number] take one [facility] thiazide 50 0-18 pill PO ity o f mg tablet 00:00: Daily [place] 00 Medical Branch famotidine 2021-06 Yes [id number] 20mg Take 1 [facility] 20 mg 0-18 tablet by ity of tablet 00:00: mouth in [place] 00 the Medical morning Branch and 1 tablet in the evening. albuterol 2021-06 Yes [id number] 2.5mg Inhale 3 [facility] 2.5 mg /3 0-18 mL every 6 ity of mL (0.083 00:00: (six) [place] %) 00 hours as Medical nebulizer needed for Bran ch solution Wheezing or Shortness of Breath. ipratropium 2021-06 Yes [id number] .5mg Inhale 2.5 [facility] 0.02 % 0-18 mL every 6 ity of nebulizer 00:00: (six) [place] solution 00 hours as Medical needed for Branch Wheezing or Shortness of Breath. fluticasone 2021-06 Yes [id number] 2{puff} Inhale 2 [facility] propionate 0-18 Puffs ity of (FLOVENT 00:00: every 12 [place] HFA) 110 00 (twelve) Medical mcg/actuati hours. Branch on inhaler albuterol 2021-06 Yes [id number] 2.5mg Inhale 0.5 Univers 2.5 mg/0.5 0-18 mL every 6 ity of mL 00:00: (six) [place] nebulizer 00 hours as Medica l solution needed for Branc h Wheezing. losartan 2021-06 Yes [id number] 100mg Take 1 Un nicky 100 mg 0-18 tablet by ity of tablet 00:00: mouth in [place] 00 the Medical morning. Branch lidocaine 2021-06 Yes [id number] 1{patch Apply 1 [facility] 1.8 % PtMd 0-18 } Patch to ity o f 00:00: area(s) [place] 00 daily. Medical Branch furosemide 2021-06 Yes [id number] 20mg Take 1 U nivers 20 mg 0-18 tablet by ity of tablet 00:00: mouth in [place] 00 the Medical morning. Branch apixaban 2021-06 Yes [id number] 2.5mg Take 1 Univer s (ELIQUIS) 0-18 tablet by ity o f 2.5 mg 00:00: mouth in [place] tablet 00 the Medical morning Branch and 1 tablet in the evening. Indication s: atrial fibrillati on famotidine 2021-06 Yes [id number] 20mg Take 1 [facility] 20 mg 0-18 tablet by ity of tablet 00:00: mouth in [place] 00 the Medical morning Branch and 1 tablet in the evening. albuterol 2021-06 Yes [id number] 2.5mg Inhale 3 [facility] 2.5 mg /3 0-18 mL every 6 ity of mL (0.083 00:00: (six) [place] %) 00 hours as Medical nebulizer needed for Bran ch solution Wheezing or Shortness of Breath. ipratropium 2021-06 Yes [id number] .5mg Inhale 2.5 [facility] 0.02 % 0-18 mL every 6 ity of nebulizer 00:00: (six) [place] solution 00 hours as Medical needed for Branch Wheezing or Shortness of Breath. fluticasone 2021-06 Yes [id number] 2{puff} Inhale 2 [facility] propionate 0-18 Puffs ity of (FLOVENT 00:00: every 12 [place] HFA) 110 00 (twelve) Medical mcg/actuati hours. Branch on inhaler albuterol 2021-06 Yes [id number] 2.5mg Inhale 0.5 [facility] 2.5 mg/0.5 0-18 mL every 6 ity of mL 00:00: (six) [place] nebulizer 00 hours as Medica l solution needed for Branc h Wheezing. lidocaine 2021-06 Yes [id number] 1{patch Apply 1 [facility] 1.8 % PtMd 0-18 } Patch to ity o f 00:00: area(s) [place] 00 daily. Medical Branch famotidine 2021-06 Yes [id number] 20mg Take 1 [facility] 20 mg 0-18 tablet by ity of tablet 00:00: mouth in [place] 00 the Medical morning Branch and 1 tablet in the evening. metoprolol 2021-06 Yes [id number] 100mg Take 1 [facility] succinate 0-18 tablet by ity o f XL (TOPROL 00:00: mouth in [place] as XL) 100 mg 00 the Medical 24 hr morning. Branch tablet famotidine 2021-06 Yes [id number] 20mg Take 1 [facility] 20 mg 0-18 tablet by ity of tablet 00:00: mouth in [place] 00 the Medical morning Branch and 1 tablet in the evening. albuterol 2021-06 Yes [id number] 2.5mg Inhale 3 [facility] 2.5 mg /3 0-18 mL every 6 ity of mL (0.083 00:00: (six) [place] %) 00 hours as Medical nebulizer needed for Bran ch solution Wheezing or Shortness of Breath. albuterol 2021-06 Yes [id number] 2.5mg Inhale 3 [facility] 2.5 mg /3 0-18 mL every 6 ity of mL (0.083 00:00: (six) [place] %) 00 hours as Medical nebulizer needed for Bran ch solution Wheezing or Shortness of Breath. ipratropium 2021-06 Yes [id number] .5mg Inhale 2.5 Univers 0.02 % 0-18 mL every 6 ity of nebulizer 00:00: (six) [place] solution 00 hours as Medical needed for Branch Wheezing or Shortness of Breath. fluticasone 2021-06 Yes [id number] 2{puff} Inhale 2 [facility] propionate 0-18 Puffs ity of (FLOVENT 00:00: every 12 [place] HFA) 110 00 (twelve) Medical mcg/actuati hours. Branch on inhaler albuterol 2021-06 Yes [id number] 2.5mg Inhale 0.5 [facility] 2.5 mg/0.5 0-18 mL every 6 ity of mL 00:00: (six) [place] nebulizer 00 hours as Medica l solution needed for Branc h Wheezing. lidocaine 2021-06 Yes [id number] 1{patch Apply 1 Univers 1.8 % PtMd 0-18 } Patch to ity o f 00:00: area(s) [place] 00 daily. Medical Branch ipratropium 2021-06 Yes [id number] .5mg Inhale 2.5 Univers 0.02 % 0-18 mL every 6 ity of nebulizer 00:00: (six) [place] solution 00 hours as Medical needed for Branch Wheezing or Shortness of Breath. fluticasone 2021-06 Yes [id number] 2{puff} Inhale 2 [facility] propionate 0-18 Puffs ity of (FLOVENT 00:00: every 12 [facility] [place] [facility]) 110 00 (twelve) Medical mcg/actuati hours. Branch on inhaler famotidine 2021-06 Yes [id number] 20mg Take 1 [facility] 20 mg 0-18 tablet by ity of tablet 00:00: mouth in [place] 00 the Medical morning Branch and 1 tablet in the evening. albuterol 2021-06 Yes [id number] 2.5mg Inhale 3 [facility] 2.5 mg /3 0-18 mL every 6 ity of mL (0.083 00:00: (six) [place] %) 00 hours as Medical nebulizer needed for Bran ch solution Wheezing or Shortness of Breath. ipratropium 2021-06 Yes [id number] .5mg Inhale 2.5 [facility] 0.02 % 0-18 mL every 6 ity of nebulizer 00:00: (six) [place] solution 00 hours as Medical needed for Branch Wheezing or Shortness of Breath. fluticasone 2021-06 Yes [id number] 2{puff} Inhale 2 [facility] propionate 0-18 Puffs ity [facility] (FL[facility]ENT 00:00: [facility] (twelve) Medical mcg/actuati hours. Branch on inhaler albuterol 2021-06 Yes [id number] 2.5mg Inhale 0.5 Univers 2.5 mg/0.5 0-18 mL every 6 ity of mL 00:00: (six) [place] nebulizer 00 hours as Medica l solution needed for Branc h Wheezing. lidocaine 2021-06 Yes [id number] 1{patch Apply 1 [facility] 1.8 % PtMd 0-18 } Patch to ity o f 00:00: area(s) [place] 00 daily. Medical Branch albuterol 2021-06 Yes [id number] 2.5mg Inhale 0.5 [facility] 2.5 mg/0.5 0-18 mL every 6 ity of mL 00:00: (six) [place] nebulizer 00 hours as Medica l solution needed for Branc h Wheezing. amitriptyli 2021-06 Yes [id number] 5mg Take 0.5 Univers ne 10 mg 0-18 tablets by ity o f tablet 00:00: mouth at [place] 00 bedtime. Medical Branch famotidine 2021-06 Yes [id number] 20mg Take 1 [facility] 20 mg 0-18 tablet by ity of tablet 00:00: mouth in [place] 00 the Medical morning Branch and 1 tablet in the evening. albuterol 2021-06 Yes [id number] 2.5mg Inhale 3 [facility] 2.5 mg /3 0-18 mL every 6 ity of mL (0.083 00:00: (six) [place] %) 00 hours as Medical nebulizer needed for Bran ch solution Wheezing or Shortness of Breath. ipratropium 2021-06 Yes [id number] .5mg Inhale 2.5 [facility] 0.02 % 0-18 mL every 6 ity of nebulizer 00:00: (six) [place] solution 00 hours as Medical needed for Branch Wheezing or Shortness of Breath. fluticasone 2021-06 Yes [id number] 2{puff} Inhale 2 [facility] propionate 0-18 Puffs ity of (FLOVENT 00:00: every 12 [place] HFA) 110 00 (twelve) Medical mcg/actuati hours. Branch on inhaler albuterol 2021-06 Yes [id number] 2.5mg Inhale 0.5 [facility] 2.5 mg/0.5 0-18 mL every 6 ity of mL 00:00: (six) [place] nebulizer 00 hours as Medica l solution needed for Branc h Wheezing. lidocaine 2021-06 Yes [id number] 1{patch Apply 1 [facility] 1.8 % PtMd 0-18 } Patch to ity o f 00:00: area(s) [place] 00 daily. Medical Branch traMADoL-ac 2021-06 Yes [id number] 1{tbl} Take 1 Un nicky etaminophen 0-18 tablet by ity of 37.5-325 mg 00:00: mouth [place] per tablet 00 every 6 Medica l (six) Branch hours as needed for Pain. Indication s: chronic pain lidocaine 2021-06 Yes [id number] 1{patch Apply 1 [facility] 1.8 % PtMd 0-18 } Patch to ity o f 00:00: area(s) [place] 00 daily. Medical Branch famotidine 2021-06 Yes [id number] 20mg Take 1 [facility] 20 mg 0-18 tablet by ity of tablet 00:00: mouth in [place] 00 the Medical morning Branch and 1 tablet in the evening. albuterol 2021-06 Yes [id number] 2.5mg Inhale 3 [facility] 2.5 mg /3 0-18 mL every 6 ity of mL (0.083 00:00: (six) [place] %) 00 hours as Medical nebulizer needed for Bran ch solution Wheezing or Shortness of Breath. ipratropium 2021-06 Yes [id number] .5mg Inhale 2.5 Univers 0.02 % 0-18 mL every 6 ity of nebulizer 00:00: (six) [place] solution 00 hours as Medical needed for Branch Wheezing or Shortness of Breath. fluticasone 2021-06 Yes [id number] 2{puff} Inhale 2 [facility] propionate 0-18 Puffs ity of (FLOVENT 00:00: every 12 [place] HFA) 110 00 (twelve) Medical mcg/actuati hours. Branch on inhaler albuterol 2021-06 Yes [id number] 2.5mg Inhale 0.5 Univers 2.5 mg/0.5 0-18 mL every 6 ity of mL 00:00: (six) [place] nebulizer 00 hours as Medica l solution needed for Branc h Wheezing. lidocaine 2021-06 Yes [id number] 1{patch Apply 1 [facility] 1.8 % PtMd 0-18 } Patch to ity o f 00:00: area(s) [place] 00 daily. Medical Branch famotidine 2021-06 Yes [id number] 20mg Take 1 [facility] 20 mg 0-18 tablet by ity of tablet 00:00: mouth in [place] 00 the Medical morning Branch and 1 tablet in the evening. albuterol 2021-06 Yes [id number] 2.5mg Inhale 3 [facility] 2.5 mg /3 0-18 mL every 6 ity of mL (0.083 00:00: (six) [place] %) 00 hours as Medical nebulizer needed for Bran ch solution Wheezing or Shortness of Breath. ipratropium 2021-06 Yes [id number] .5mg Inhale 2.5 Univers 0.02 % 0-18 mL every 6 ity of nebulizer 00:00: (six) [place] solution 00 hours as Medical needed for Branch Wheezing or Shortness of Breath. fluticasone 2021-06 Yes [id number] 2{puff} Inhale 2 [facility] propionate 0-18 Puffs ity of (FLOVENT 00:00: every 12 [place] HFA) 110 00 (twelve) Medical mcg/actuati hours. Branch on inhaler albuterol 2021-06 Yes [id number] 2.5mg Inhale 0.5 [facility] 2.5 mg/0.5 0-18 mL every 6 ity of mL 00:00: (six) [place] nebulizer 00 hours as Medica l solution needed for Branc h Wheezing. lidocaine 2021-06 Yes [id number] 1{patch Apply 1 [facility] 1.8 % PtMd 0-18 } Patch to ity o f 00:00: area(s) [place] 00 daily. Medical Branch famotidine 2021-06 Yes [id number] 20mg Take 1 [facility] 20 mg 0-18 tablet by ity of tablet 00:00: mouth in [place] 00 the Medical morning Branch and 1 tablet in the evening. albuterol 2021-06 Yes [id number] 2.5mg Inhale 3 [facility] 2.5 mg /3 0-18 mL every 6 ity of mL (0.083 00:00: (six) [place] %) 00 hours as Medical nebulizer needed for Bran ch solution Wheezing or Shortness of Breath. ipratropium 2021-06 Yes [id number] .5mg Inhale 2.5 Univers 0.02 % 0-18 mL every 6 ity of nebulizer 00:00: (six) [place] solution 00 hours as Medical needed for Branch Wheezing or Shortness of Breath. fluticasone 2021-06 Yes [id number] 2{puff} Inhale 2 [facility] propionate 0-18 Puffs ity of (FLOVENT 00:00: every 12 [place] HFA) 110 00 (twelve) Medical mcg/actuati hours. Branch on inhaler albuterol 2021-06 Yes [id number] 2.5mg Inhale 0.5 [facility] 2.5 mg/0.5 0-18 mL every 6 ity of mL 00:00: (six) [place] nebulizer 00 hours as Medica l solution needed for Branc h Wheezing. lidocaine 2021-06 Yes [id number] 1{patch Apply 1 [facility] 1.8 % PtMd 0-18 } Patch to ity o f 00:00: area(s) [place] 00 daily. Medical Branch famotidine 2021-06 Yes [id number] 20mg Take 1 [facility] 20 mg 0-18 tablet by ity of tablet 00:00: mouth in [place] 00 the Medical morning Branch and 1 tablet in the evening. albuterol 2021-06 Yes [id number] 2.5mg Inhale 3 [facility] 2.5 mg /3 0-18 mL every 6 ity of mL (0.083 00:00: (six) [place] %) 00 hours as Medical nebulizer needed for Bran ch solution Wheezing or Shortness of Breath. ipratropium 2021-06 Yes [id number] .5mg Inhale 2.5 Univers 0.02 % 0-18 mL every 6 ity of nebulizer 00:00: (six) [place] solution 00 hours as Medical needed for Branch Wheezing or Shortness of Breath. fluticasone 2021-06 Yes [id number] 2{puff} Inhale 2 [facility] propionate 0-18 Puffs ity of (FLOVENT 00:00: every 12 [place] HFA) 110 00 (twelve) Medical mcg/actuati hours. Branch on inhaler albuterol 2021-06 Yes [id number] 2.5mg Inhale 0.5 Univers 2.5 mg/0.5 0-18 mL every 6 ity of mL 00:00: (six) [place] nebulizer 00 hours as Medica l solution needed for Branc h Wheezing. lidocaine 2021-06 Yes [id number] 1{patch Apply 1 [facility] 1.8 % PtMd 0-18 } Patch to ity o f 00:00: area(s) [place] 00 daily. Medical Branch albuterol 2021-06 Yes [id number] 2.5mg Inhale 3 [facility] 2.5 mg /3 0-18 mL every 6 ity of mL (0.083 00:00: (six) [place] %) 00 hours as Medical nebulizer needed for Bran ch solution Wheezing or Shortness of Breath. ipratropium 2021-06 Yes [id number] .5mg Inhale 2.5 Univers 0.02 % 0-18 mL every 6 ity of nebulizer 00:00: (six) [place] solution 00 hours as Medical needed for Branch Wheezing or Shortness of Breath. fluticasone 2021-06 Yes [id number] 2{puff} Inhale 2 [facility] propionate 0-18 Puffs ity of (FLOVENT 00:00: every 12 [place] HFA) 110 00 (twelve) Medical mcg/actuati hours. Branch on inhaler albuterol 2021-06 Yes [id number] 2.5mg Inhale 0.5 [facility] 2.5 mg/0.5 0-18 mL every 6 ity of mL 00:00: (six) [place] nebulizer 00 hours as Medica l solution needed for Branc h Wheezing. lidocaine 2021-06 Yes [id number] 1{patch Apply 1 [facility] 1.8 % PtMd 0-18 } Patch to ity o f 00:00: area(s) [place] 00 daily. Medical Branch hydroCHLORO 2021-06 Yes [id number] take one [facility] thiazide 50 0-18 pill PO ity o f mg tablet 00:00: Daily [place] 00 Medical Branch losartan 2021-06 Yes [id number] 100mg Take 1 Un nicky 100 mg 0-18 tablet by ity of tablet 00:00: mouth in [place] 00 the Medical morning. Branch furosemide 2021-06 Yes [id number] 20mg Take 1 U nivers 20 mg 0-18 tablet by ity of tablet 00:00: mouth in [place] 00 the Medical morning. Branch apixaban 2021-06 Yes [id number] 2.5mg Take 1 Univer s (ELIQUIS) 0-18 tablet by ity o f 2.5 mg 00:00: mouth in [facility] 00 the Medical morning Branch and 1 tablet in the evening. Indication s: atrial fibrillati on famotidine 2021-06 Yes [id number] 20mg Take 1 [facility] 20 mg 0-18 tablet by ity of tablet 00:00: mouth in [place] 00 the Medical morning Branch and 1 tablet in the evening. metoprolol 2021-06 Yes [id number] 100mg Take 1 [facility] succinate 0-18 tablet by ity o f XL (TOPROL 00:00: mouth in [place] as XL) 100 mg 00 the Medical 24 hr morning. Branch tablet albuterol 2021-06 Yes [id number] 2.5mg Inhale 3 [facility] 2.5 mg /3 0-18 mL every 6 ity of mL (0.083 00:00: (six) [place] %) 00 hours as Medical nebulizer needed for Bran ch solution Wheezing or Shortness of Breath. ipratropium 2021-06 Yes [id number] .5mg Inhale 2.5 Univers 0.02 % 0-18 mL every 6 ity of nebulizer 00:00: (six) [place] solution 00 hours as Medical needed for Branch Wheezing or Shortness of Breath. fluticasone 2021-06 Yes [id number] 2{puff} Inhale 2 [facility] propionate 0-18 Puffs ity of (FLOVENT 00:00: every 12 [place] HFA) 110 00 (twelve) Medical mcg/actuati hours. Branch on inhaler albuterol 2021-06 Yes [id number] 2.5mg Inhale 0.5 [facility] 2.5 mg/0.5 0-18 mL every 6 ity of mL 00:00: (six) [place] nebulizer 00 hours as Medica l solution needed for Branc h Wheezing. amitriptyli 2021-06 Yes [id number] 5mg Take 0.5 [facility] ne 10 mg 0-18 tablets by ity o f tablet 00:00: mouth at [place] 00 bedtime. Medical Branch traMADoL-ac 2021-06 Yes [id number] 1{tbl} Take 1 Un nicky etaminophen 0-18 tablet by ity of 37.5-325 mg 00:00: mouth [place] per tablet 00 every 6 Medica l (six) Branch hours as needed for Pain. Indication s: chronic pain lidocaine 2021-06 Yes [id number] 1{patch Apply 1 [facility] 1.8 % PtMd 0-18 } Patch to ity o f 00:00: area(s) [place] 00 daily. Medical Branch hydroCHLORO 2021-06 Yes [id number] take one [facility] thiazide 50 0-18 pill PO ity o f mg tablet 00:00: Daily [place] 00 Medical Branch losartan 2021-06 Yes [id number] 100mg Take 1 [facility] nick[facility] 100 mg 0-18 tablet by ity of tablet 00:00: mouth in [place] 00 the Medical morning. Branch furosemide 2021-06 Yes [id number] 20mg Take 1 [facility] n[facility] 20 mg 0-18 tablet by ity of tablet 00:00: mouth in [place] 00 the Medical morning. Branch apixaban 2021-06 Yes 1358 2.5mg Take 1 Univer s (ELIQUIS) 0-18 tablet by ity o f 2.5 mg 00:00: mouth in [place] tablet 00 the Medical morning Branch and 1 tablet in the evening. Indication s: atrial fibrillati on famotidine 2021-06 Yes [id number] 20mg Take 1 [facility] 20 mg 0-18 tablet by ity of tablet 00:00: mouth in [place] 00 the Medical morning Branch and 1 tablet in the evening. albuterol 2021-06 Yes [id number] 2.5mg Inhale 3 [facility] 2.5 mg /3 0-18 mL every 6 ity of mL (0.083 00:00: (six) [place] %) 00 hours as Medical nebulizer needed for Bran ch solution Wheezing or Shortness of Breath. ipratropium 2021-06 Yes [id number] .5mg Inhale 2.5 [facility] 0.02 % 0-18 mL every 6 ity of nebulizer 00:00: (six) [place] solution 00 hours as Medical needed for Branch Wheezing or Shortness of Breath. fluticasone 2021-06 Yes [id number] 2{puff} Inhale 2 [facility] propionate 0-18 Puffs ity of (FLOVENT 00:00: every 12 [place] HFA) 110 00 (twelve) Medical mcg/actuati hours. Branch on inhaler albuterol 2021-06 Yes [id number] 2.5mg Inhale 0.5 [facility] 2.5 mg/0.5 0-18 mL every 6 ity of mL 00:00: (six) [place] nebulizer 00 hours as Medica l solution needed for Branc h Wheezing. amitriptyli 2021-06 Yes [id number] 5mg Take 0.5 [facility] ne 10 mg 0-18 tablets by ity o f tablet 00:00: mouth at [place] 00 bedtime. Medical Branch traMADoL-ac 2021-06 Yes [id number] 1{tbl} Take 1 [facility] nick[facility] etaminophen 0-18 tablet by ity of 37.5-325 mg 00:00: mouth [place] per tablet 00 every 6 Medica l (six) Branch hours as needed for Pain. Indication s: chronic pain lidocaine 2021-06 Yes [id number] 1{patch Apply 1 [facility] 1.8 % PtMd 0-18 } Patch to ity o f 00:00: area(s) [place] 00 daily. Medical Branch hydroCHLORO 2021-06 Yes [id number] take one [facility] thiazide 50 0-18 pill PO ity o f mg tablet 00:00: Daily [place] 00 Medical Branch losartan 2021-06 Yes [id number] 100mg Take 1 [facility] 100 mg 0-18 tablet by ity of tablet 00:00: mouth in [place] 00 the Medical morning. Branch furosemide 2021-06 Yes [id number] 20mg Take 1 [facility] 20 mg 0-18 tablet by ity of tablet 00:00: mouth in [place] 00 the Medical morning. Branch apixaban 2021-06 Yes 1358 2.5mg Take 1 Univer s (ELIQUIS) 0-18 tablet by ity o f 2.5 mg 00:00: mouth in [place] tablet 00 the Medical morning Branch and 1 tablet in the evening. Indication s: atrial fibrillati on famotidine 2021-06 Yes [id number] 20mg Take 1 [facility] 20 mg 0-18 tablet by ity of tablet 00:00: mouth in [place] 00 the Medical morning Branch and 1 tablet in the evening. albuterol 2021-06 Yes [id number] 2.5mg Inhale 3 [facility] 2.5 mg /3 0-18 mL every 6 ity of mL (0.083 00:00: (six) [place] %) 00 hours as Medical nebulizer needed for Bran ch solution Wheezing or Shortness of Breath. ipratropium 2021-06 Yes [id number] .5mg Inhale 2.5 [facility] 0.02 % 0-18 mL every 6 ity of nebulizer 00:00: (six) [place] solution 00 hours as Medical needed for Branch Wheezing or Shortness of Breath. fluticasone 2021-06 Yes [id number] 2{puff} Inhale 2 [facility] propionate 0-18 Puffs ity of (FLOVENT 00:00: every 12 [place] HFA) 110 00 (twelve) Medical mcg/actuati hours. Branch on inhaler albuterol 2021-06 Yes [id number] 2.5mg Inhale 0.5 [facility] 2.5 mg/0.5 0-18 mL every 6 ity of mL 00:00: (six) [place] nebulizer 00 hours as Medica l solution needed for Branc h Wheezing. amitriptyli 2021-06 Yes [id number] 5mg Take 0.5 [facility] ne 10 mg 0-18 tablets by ity o f tablet 00:00: mouth at [place] 00 bedtime. Medical Branch traMADoL-ac 2021-06 Yes [id number] 1{tbl} Take 1 [facility] etaminophen 0-18 tablet by ity of 37.5-325 mg 00:00: mouth [place] per tablet 00 every 6 Medica l (six) Branch hours as needed for Pain. Indication s: chronic pain lidocaine 2021-06 Yes [id number] 1{patch Apply 1 [facility] 1.8 % PtMd 0-18 } Patch to ity o f 00:00: area(s) [place] 00 daily. Medical Branch hydroCHLORO 2021-06 Yes [id number] take one [facility] thiazide 50 0-18 pill PO ity o f mg tablet 00:00: Daily [place] [address] Medical Branch losartan 2021-06 Yes [id number] 100mg Take 1 [facility] 100 mg 0-18 tablet by ity of tablet 00:00: mouth in [place] 00 the Medical morning. Branch furosemide 2021-06 Yes [id number] 20mg Take 1 [facility] nivers 20 mg 0-18 tablet by ity of tablet 00:00: mouth in [place] 00 the Medical morning. Branch apixaban 2021-06 Yes 1358 2.5mg Take 1 Un[facility] s (ELIQUIS) 0-18 tablet by ity o f 2.5 mg 00:00: mouth in [place] tablet 00 the Medical morning Branch and 1 tablet in the evening. Indication s: atrial fibrillati on famotidine 2021-06 Yes [id number] 20mg Take 1 [facility] 20 mg 0-18 tablet by ity of tablet 00:00: mouth in [place] 00 the Medical morning Branch and 1 tablet in the evening. albuterol 2021-06 Yes [id number] 2.5mg Inhale 3 [facility] 2.5 mg /3 0-18 mL every 6 ity of mL (0.083 00:00: (six) [place] %) 00 hours as Medical nebulizer needed for Bran ch solution Wheezing or Shortness of Breath. ipratropium 2021-06 Yes [id number] .5mg Inhale 2.5 [facility] 0.02 % 0-18 mL every 6 ity of nebulizer 00:00: (six) [place] solution 00 hours as Medical needed for Branch Wheezing or Shortness of Breath. fluticasone 2021-06 Yes [id number] 2{puff} Inhale 2 [facility] propionate 0-18 Puffs ity of (FLOVENT 00:00: every 12 [place] HFA) 110 00 (twelve) Medical mcg/actuati hours. Branch on inhaler albuterol 2021-06 Yes [id number] 2.5mg Inhale 0.5 [facility] 2.5 mg/0.5 0-18 mL every 6 ity of mL 00:00: (six) [place] nebulizer 00 hours as Medica l solution needed for Branc h Wheezing. amitriptyli 2021-06 Yes [id number] 5mg Take 0.5 [facility] ne 10 mg 0-18 tablets by ity o f tablet 00:00: mouth at [place] 00 bedtime. Medical Branch traMADoL-ac 2021-06 Yes [id number] 1{tbl} Take 1 [facility] etaminophen 0-18 tablet by ity of 37.5-325 mg 00:00: mouth [place] per tablet 00 every 6 Medica l (six) Branch hours as needed for Pain. Indication s: chronic pain lidocaine 2021-06 Yes [id number] 1{patch Apply 1 [facility] 1.8 % PtMd 0-18 } Patch to ity o f 00:00: area(s) [place] 00 daily. Medical Branch hydroCHLORO 2021-06 Yes [id number] take one [facility] thiazide 50 0-18 pill PO ity o f mg tablet 00:00: Daily [place] 00 Medical Branch losartan 2021-06 Yes [id number] 100mg Take 1 [facility] 100 mg 0-18 tablet by ity of tablet 00:00: mouth in [place] 00 the Medical morning. Branch furosemide 2021-06 Yes [id number] 20mg Take 1 [facility] 20 mg 0-18 tablet by ity of tablet 00:00: mouth in [place] 00 the Medical morning. Branch apixaban 2021-06 Yes 1358 2.5mg Take 1 [facility] s (ELIQUIS) 0-18 tablet by ity o f 2.5 mg 00:00: mouth in [place] tablet 00 the Medical morning Branch and 1 tablet in the evening. Indication s: atrial fibrillati on famotidine 2021-06 Yes [id number] 20mg Take 1 [facility] 20 mg 0-18 tablet by ity of tablet 00:00: mouth in [place] 00 the Medical morning Branch and 1 tablet in the evening. albuterol 2021-06 Yes [id number] 2.5mg Inhale 3 [facility] 2.5 mg /3 0-18 mL every 6 ity of mL (0.083 00:00: (six) [place] %) 00 hours as Medical nebulizer needed for Bran ch solution Wheezing or Shortness of Breath. ipratropium 2021-06 Yes [id number] .5mg Inhale 2.5 [facility] 0.02 % 0-18 mL every 6 ity of nebulizer 00:00: (six) [place] solution 00 hours as Medical needed for Branch Wheezing or Shortness of Breath. fluticasone 2021-06 Yes [id number] 2{puff} Inhale 2 [facility] propionate 0-18 Puffs ity of (FLOVENT 00:00: every 12 [place] HFA) 110 00 (twelve) Medical mcg/actuati hours. Branch on inhaler albuterol 2021-06 Yes [id number] 2.5mg Inhale 0.5 [facility] 2.5 mg/0.5 0-18 mL every 6 ity of mL 00:00: (six) [place] nebulizer 00 hours as Medica l solution needed for Branc h Wheezing. lidocaine 2021-06 Yes [id number] 1{patch Apply 1 [facility] 1.8 % PtMd 0-18 } Patch to ity o f 00:00: area(s) [place] 00 daily. Medical Branch hydroCHLORO 2021-06 Yes [id number] take one [facility] thiazide 50 0-18 pill PO ity o f mg tablet 00:00: Daily [place] 00 Medical Branch losartan 2021-06 Yes [id number] 100mg Take 1 [facility] 100 mg 0-18 tablet by ity of tablet 00:00: mouth in [place] 00 the Medical morning. Branch furosemide 2021-06 Yes [id number] 20mg Take 1 [facility] 20 mg 0-18 tablet by ity of tablet 00:00: mouth in [place] 00 the Medical morning. Branch apixaban 2021-06 Yes 1358 2.5mg Take 1 [facility] s (ELIQUIS) 0-18 tablet by ity o f 2.5 mg 00:00: mouth in [place] tablet 00 the Medical morning Branch and 1 tablet in the evening. Indication s: atrial fibrillati on famotidine 2021-06 Yes [id number] 20mg Take 1 [facility] 20 mg 0-18 tablet by ity of tablet 00:00: mouth in [place] 00 the Medical morning Branch and 1 tablet in the evening. albuterol 2021-06 Yes [id number] 2.5mg Inhale 3 [facility] 2.5 mg /3 0-18 mL every 6 ity of mL (0.083 00:00: (six) [place] %) 00 hours as Medical nebulizer needed for Bran ch solution Wheezing or Shortness of Breath. ipratropium 2021-06 Yes [id number] .5mg Inhale 2.5 [facility] 0.02 % 0-18 mL every 6 ity of nebulizer 00:00: (six) [place] solution 00 hours as Medical needed for Branch Wheezing or Shortness of Breath. fluticasone 2021-06 Yes [id number] 2{puff} Inhale 2 [facility] propionate 0-18 Puffs ity of (FLOVENT 00:00: every 12 [place] HFA) 110 00 (twelve) Medical mcg/actuati hours. Branch on inhaler albuterol 2021-06 Yes [id number] 2.5mg Inhale 0.5 [facility] 2.5 mg/0.5 0-18 mL every 6 ity of mL 00:00: (six) [place] nebulizer 00 hours as Medica l solution needed for Branc h Wheezing. lidocaine 2021-06 Yes [id number] 1{patch Apply 1 [facility] 1.8 % PtMd 0-18 } Patch to ity o f 00:00: area(s) [place] 00 daily. Medical Branch hydroCHLORO 2021-06 Yes [id number] take one [facility] thiazide 50 0-18 pill PO ity o f mg tablet 00:00: Daily [place] 00 Medical Branch losartan 2021-06 Yes [id number] 100mg Take 1 [facility] 100 mg 0-18 tablet by ity of tablet 00:00: mouth in [place] 00 the Medical morning. Branch furosemide 2021-06 Yes [id number] 20mg Take 1 [facility] 20 mg 0-18 tablet by ity of tablet 00:00: mouth in [place] 00 the Medical morning. Branch apixaban 2021-06 Yes 1358 2.5mg Take 1 [facility] s (ELIQUIS) 0-18 tablet by ity o f 2.5 mg 00:00: mouth in [place] tablet 00 the Medical morning Branch and 1 tablet in the evening. Indication s: atrial fibrillati on famotidine 2021-06 Yes [id number] 20mg Take 1 [facility] 20 mg 0-18 tablet by ity of tablet 00:00: mouth in [place] 00 the Medical morning Branch and 1 tablet in the evening. albuterol 2021-06 Yes [id number] 2.5mg Inhale 3 [facility] 2.5 mg /3 0-18 mL every 6 ity of mL (0.083 00:00: (six) [place] %) 00 hours as Medical nebulizer needed for Bran ch solution Wheezing or Shortness of Breath. ipratropium 2021-06 Yes [id number] .5mg Inhale 2.5 [facility] 0.02 % 0-18 mL every 6 ity of nebulizer 00:00: (six) [place] solution 00 hours as Medical needed for Branch Wheezing or Shortness of Breath. fluticasone 2021-06 Yes [id number] 2{puff} Inhale 2 [facility] propionate 0-18 Puffs ity of (FLOVENT 00:00: every 12 [place] HFA) 110 00 (twelve) Medical mcg/actuati hours. Branch on inhaler albuterol 2021-06 Yes [id number] 2.5mg Inhale 0.5 [facility] 2.5 mg/0.5 0-18 mL every 6 ity of mL 00:00: (six) [place] nebulizer 00 hours as Medica l solution needed for Branc h Wheezing. lidocaine 2021-06 Yes [id number] 1{patch Apply 1 [facility] 1.8 % PtMd 0-18 } Patch to ity o f 00:00: area(s) [place] 00 daily. Medical Branch hydroCHLORO 2021-06 Yes [id number] take one [facility] thiazide 50 0-18 pill PO ity o f mg tablet 00:00: Daily [place] 00 Medical Branch losartan 2021-06 Yes [id number] 100mg Take 1 [facility] 100 mg 0-18 tablet by ity of tablet 00:00: mouth in [place] 00 the Medical morning. Branch furosemide 2021-06 Yes [id number] 20mg Take 1 [facility] 20 mg 0-18 tablet by ity of tablet 00:00: mouth in [place] 00 the Medical morning. Branch apixaban 2021-06 Yes 1358 2.5mg Take 1 [facility] s (ELIQUIS) 0-18 tablet by ity o f 2.5 mg 00:00: mouth in [place] tablet 00 the Medical morning Branch and 1 tablet in the evening. Indication s: atrial fibrillati on famotidine 2021-06 Yes [id number] 20mg Take 1 [facility] 20 mg 0-18 tablet by ity of tablet 00:00: mouth in [place] 00 the Medical morning Branch and 1 tablet in the evening. albuterol 2021-06 Yes [id number] 2.5mg Inhale 3 [facility] 2.5 mg /3 0-18 mL every 6 ity of mL (0.083 00:00: (six) [place] %) 00 hours as Medical nebulizer needed for Bran ch solution Wheezing or Shortness of Breath. ipratropium 2021-06 Yes [id number] .5mg Inhale 2.5 [facility] 0.02 % 0-18 mL every 6 ity of nebulizer 00:00: (six) [place] solution 00 hours as Medical needed for Branch Wheezing or Shortness of Breath. fluticasone 2021-06 Yes [id number] 2{puff} Inhale 2 [facility] propionate 0-18 Puffs ity of (FLOVENT 00:00: every 12 [place] HFA) 110 00 (twelve) Medical mcg/actuati hours. Branch on inhaler albuterol 2021-06 Yes [id number] 2.5mg Inhale 0.5 [facility] 2.5 mg/0.5 0-18 mL every 6 ity of mL 00:00: (six) [place] nebulizer 00 hours as Medica l solution needed for Branc h Wheezing. lidocaine 2021-06 Yes [id number] 1{patch Apply 1 [facility] 1.8 % PtMd 0-18 } Patch to ity o f 00:00: area(s) [place] 00 daily. Medical Branch hydroCHLORO 2021-06 Yes [id number] take one [facility] thiazide 50 0-18 pill PO ity o f mg tablet 00:00: Daily [place] 00 Medical Branch losartan 2021-06 Yes [id number] 100mg Take 1 [facility] 100 mg 0-18 tablet by ity of tablet 00:00: mouth in [place] 00 the Medical morning. Branch furosemide 2021-06 Yes [id number] 20mg Take 1 [facility] 20 mg 0-18 tablet by ity of tablet 00:00: mouth in [place] 00 the Medical morning. Branch apixaban 2021-06 Yes 1358 2.5mg Take 1 [facility] s (ELIQUIS) 0-18 tablet by ity o f 2.5 mg 00:00: mouth in [place] tablet 00 the Medical morning Branch and 1 tablet in the evening. Indication s: atrial fibrillati on famotidine 2021-06 Yes [id number] 20mg Take 1 [facility] 20 mg 0-18 tablet by ity of tablet 00:00: mouth in [place] 00 the Medical morning Branch and 1 tablet in the evening. albuterol 2021-06 Yes [id number] 2.5mg Inhale 3 [facility] 2.5 mg /3 0-18 mL every 6 ity of mL (0.083 00:00: (six) [place] %) 00 hours as Medical nebulizer needed for Bran ch solution Wheezing or Shortness of Breath. ipratropium 2021-06 Yes [id number] .5mg Inhale 2.5 [facility] 0.02 % 0-18 mL every 6 ity of nebulizer 00:00: (six) [place] solution 00 hours as Medical needed for Branch Wheezing or Shortness of Breath. fluticasone 2021-06 Yes [id number] 2{puff} Inhale 2 [facility] propionate 0-18 Puffs ity of (FLOVENT 00:00: every 12 [place] HFA) 110 00 (twelve) Medical mcg/actuati hours. Branch on inhaler albuterol 2021-06 Yes [id number] 2.5mg Inhale 0.5 [facility] 2.5 mg/0.5 0-18 mL every 6 ity of mL 00:00: (six) [place] nebulizer 00 hours as Medica l solution needed for Branc h Wheezing. lidocaine 2021-06 Yes [id number] 1{patch Apply 1 [facility] 1.8 % PtMd 0-18 } Patch to ity o f 00:00: area(s) [place] 00 daily. Medical Branch hydroCHLORO 2021-06 Yes [id number] take one [facility] thiazide 50 0-18 pill PO ity o f mg tablet 00:00: Daily [place] 00 Medical Branch losartan 2021-06 Yes [id number] 100mg Take 1 [facility] 100 mg 0-18 tablet by ity of tablet 00:00: mouth in [place] 00 the Medical morning. Branch furosemide 2021-06 Yes [id number] 20mg Take 1 [facility] 20 mg 0-18 tablet by ity of tablet 00:00: mouth in [place] 00 the Medical morning. Branch apixaban 2021-06 Yes 1358 2.5mg Take 1 [facility] s (ELIQUIS) 0-18 tablet by ity o f 2.5 mg 00:00: mouth in [place] tablet 00 the Medical morning Branch and 1 tablet in the evening. Indication s: atrial fibrillati on famotidine 2021-06 Yes [id number] 20mg Take 1 [facility] 20 mg 0-18 tablet by ity of tablet 00:00: mouth in [place] 00 the Medical morning Branch and 1 tablet in the evening. albuterol 2021-06 Yes [id number] 2.5mg Inhale 3 [facility] 2.5 mg /3 0-18 mL every 6 ity of mL (0.083 00:00: (six) [place] %) 00 hours as Medical nebulizer needed for Bran ch solution Wheezing or Shortness of Breath. ipratropium 2021-06 Yes [id number] .5mg Inhale 2.5 [facility] 0.02 % 0-18 mL every 6 ity of nebulizer 00:00: (six) [place] solution 00 hours as Medical needed for Branch Wheezing or Shortness of Breath. fluticasone 2021-06 Yes [id number] 2{puff} Inhale 2 [facility] propionate 0-18 Puffs ity of (FLOVENT 00:00: every 12 [place] HFA) 110 00 (twelve) Medical mcg/actuati hours. Branch on inhaler albuterol 2021-06 Yes [id number] 2.5mg Inhale 0.5 [facility] 2.5 mg/0.5 0-18 mL every 6 ity of mL 00:00: (six) [place] nebulizer 00 hours as Medica l solution needed for Branc h Wheezing. lidocaine 2021-06 Yes [id number] 1{patch Apply 1 [facility] 1.8 % PtMd 0-18 } Patch to ity o f 00:00: area(s) [place] 00 daily. Medical Branch hydroCHLORO 2021-06 Yes [id number] take one [facility] thiazide 50 0-18 pill PO ity o f mg tablet 00:00: Daily [place] 00 Medical Branch losartan 2021-06 Yes [id number] 100mg Take 1 [facility] 100 mg 0-18 tablet by ity of tablet 00:00: mouth in [place] 00 the Medical morning. Branch furosemide 2021-06 Yes [id number] 20mg Take 1 [facility] 20 mg 0-18 tablet by ity of tablet 00:00: mouth in [place] 00 the Medical morning. Branch apixaban 2021-06 Yes 1358 2.5mg Take 1 [facility] s (ELIQUIS) 0-18 tablet by ity o f 2.5 mg 00:00: mouth in [place] tablet 00 the Medical morning Branch and 1 tablet in the evening. Indication s: atrial fibrillati on famotidine 2021-06 Yes [id number] 20mg Take 1 [facility] 20 mg 0-18 tablet by ity of tablet 00:00: mouth in [place] 00 the Medical morning Branch and 1 tablet in the evening. albuterol 2021-06 Yes [id number] 2.5mg Inhale 3 [facility] 2.5 mg /3 0-18 mL every 6 ity of mL (0.083 00:00: (six) [place] %) 00 hours as Medical nebulizer needed for Bran ch solution Wheezing or Shortness of Breath. ipratropium 2021-06 Yes [id number] .5mg Inhale 2.5 [facility] 0.02 % 0-18 mL every 6 ity of nebulizer 00:00: (six) [place] solution 00 hours as Medical needed for Branch Wheezing or Shortness of Breath. fluticasone 2021-06 Yes [id number] 2{puff} Inhale 2 [facility] propionate 0-18 Puffs ity of (FLOVENT 00:00: every 12 [place] HFA) 110 00 (twelve) Medical mcg/actuati hours. Branch on inhaler albuterol 2021-06 Yes [id number] 2.5mg Inhale 0.5 [facility] 2.5 mg/0.5 0-18 mL every 6 ity of mL 00:00: (six) [place] nebulizer 00 hours as Medica l solution needed for Branc h Wheezing. lidocaine 2021-06 Yes [id number] 1{patch Apply 1 [facility] 1.8 % PtMd 0-18 } Patch to ity o f 00:00: area(s) [place] 00 daily. Medical Branch hydroCHLORO 2021-06 Yes [id number] take one [facility] thiazide 50 0-18 pill PO ity o f mg tablet 00:00: Daily [place] 00 Medical Branch losartan 2021-06 Yes [id number] 100mg Take 1 [facility] 100 mg 0-18 tablet by ity of tablet 00:00: mouth in [place] 00 the Medical morning. Branch furosemide 2021-06 Yes [id number] 20mg Take 1 [facility] 20 mg 0-18 tablet by ity of tablet 00:00: mouth in [place] 00 the Medical morning. Branch apixaban 2021-06 Yes 1358 2.5mg Take 1 [facility] s (ELIQUIS) 0-18 tablet by ity o f 2.5 mg 00:00: mouth in [place] tablet 00 the Medical morning Branch and 1 tablet in the evening. Indication s: atrial fibrillati on famotidine 2021-06 Yes [id number] 20mg Take 1 [facility] 20 mg 0-18 tablet by ity of tablet 00:00: mouth in [place] 00 the Medical morning Branch and 1 tablet in the evening. albuterol 2021-06 Yes [id number] 2.5mg Inhale 3 [facility] 2.5 mg /3 0-18 mL every 6 ity of mL (0.083 00:00: (six) [place] %) 00 hours as Medical nebulizer needed for Bran ch solution Wheezing or Shortness of Breath. ipratropium 2021-06 Yes [id number] .5mg Inhale 2.5 [facility] 0.02 % 0-18 mL every 6 ity of nebulizer 00:00: (six) [place] solution 00 hours as Medical needed for Branch Wheezing or Shortness of Breath. fluticasone 2021-06 Yes [id number] 2{puff} Inhale 2 [facility] propionate 0-18 Puffs ity of (FLOVENT 00:00: every 12 [place] HFA) 110 00 (twelve) Medical mcg/actuati hours. Branch on inhaler albuterol 2021-06 Yes [id number] 2.5mg Inhale 0.5 [facility] 2.5 mg/0.5 0-18 mL every 6 ity of mL 00:00: (six) [place] nebulizer 00 hours as Medica l solution needed for Branc h Wheezing. lidocaine 2021-06 Yes [id number] 1{patch Apply 1 [facility] 1.8 % PtMd 0-18 } Patch to ity o f 00:00: area(s) [place] 00 daily. Medical Branch hydroCHLORO 2021-06 Yes [id number] take one [facility] thiazide 50 0-18 pill PO ity o f mg tablet 00:00: Daily [place] 00 Medical Branch losartan 2021-06 Yes [id number] 100mg Take 1 [facility] 100 mg 0-18 tablet by ity of tablet 00:00: mouth in [place] 00 the Medical morning. Branch furosemide 2021-06 Yes [id number] 20mg Take 1 [facility] 20 mg 0-18 tablet by ity of tablet 00:00: mouth in [place] 00 the Medical morning. Branch apixaban 2021-06 Yes 1358 2.5mg Take 1 [facility] (ELIQUIS) 0-18 tablet by ity o f 2.5 mg 00:00: mouth in [place] tablet 00 the Medical morning Branch and 1 tablet in the evening. Indication s: atrial fibrillati on famotidine 2021-06 Yes [id number] 20mg Take 1 [facility] 20 mg 0-18 tablet by ity of tablet 00:00: mouth in [place] 00 the Medical morning Branch and 1 tablet in the evening. albuterol 2021-06 Yes [id number] 2.5mg Inhale 3 [facility] 2.5 mg /3 0-18 mL every 6 ity of mL (0.083 00:00: (six) [place] %) 00 hours as Medical nebulizer needed for Bran ch solution Wheezing or Shortness of Breath. ipratropium 2021-06 Yes [id number] .5mg Inhale 2.5 [facility] 0.02 % 0-18 mL every 6 ity of nebulizer 00:00: (six) [place] solution 00 hours as Medical needed for Branch Wheezing or Shortness of Breath. fluticasone 2021-06 Yes [id number] 2{puff} Inhale 2 [facility] propionate 0-18 Puffs ity of (FLOVENT 00:00: every 12 [place] HFA) 110 00 (twelve) Medical mcg/actuati hours. Branch on inhaler albuterol 2021-06 Yes [id number] 2.5mg Inhale 0.5 [facility] 2.5 mg/0.5 0-18 mL every 6 ity of mL 00:00: (six) [place] nebulizer 00 hours as Medica l solution needed for Branc h Wheezing. lidocaine 2021-06 Yes [id number] 1{patch Apply 1 [facility] 1.8 % PtMd 0-18 } Patch to ity o f 00:00: area(s) [place] 00 daily. Medical Branch hydroCHLORO 2021-06 Yes [id number] take one [facility] thiazide 50 0-18 pill PO ity o f mg tablet 00:00: Daily [place] 00 Medical Branch losartan 2021-06 Yes [id number] 100mg Take 1 [facility] 100 mg 0-18 tablet by ity of tablet 00:00: mouth in [place] 00 the Medical morning. Branch furosemide 2021-06 Yes [id number] 20mg Take 1 [facility] 20 mg 0-18 tablet by ity of tablet 00:00: mouth in [place] 00 the Medical morning. Branch apixaban 2021-06 Yes 1358 2.5mg Take 1 [facility] s (ELIQUIS) 0-18 tablet by ity o f 2.5 mg 00:00: mouth in [place] tablet 00 the Medical morning Branch and 1 tablet in the evening. Indication s: atrial fibrillati on famotidine 2021-06 Yes [id number] 20mg Take 1 [facility] 20 mg 0-18 tablet by ity of tablet 00:00: mouth in [place] 00 the Medical morning Branch and 1 tablet in the evening. albuterol 2021-06 Yes [id number] 2.5mg Inhale 3 [facility] 2.5 mg /3 0-18 mL every 6 ity of mL (0.083 00:00: (six) [place] %) 00 hours as Medical nebulizer needed for Bran ch solution Wheezing or Shortness of Breath. ipratropium 2021-06 Yes [id number] .5mg Inhale 2.5 [facility] 0.02 % 0-18 mL every 6 ity of nebulizer 00:00: (six) [place] solution 00 hours as Medical needed for Branch Wheezing or Shortness of Breath. fluticasone 2021-06 Yes [id number] 2{puff} Inhale 2 [facility] propionate 0-18 Puffs ity of (FLOVENT 00:00: every 12 [place] HFA) 110 00 (twelve) Medical mcg/actuati hours. Branch on inhaler albuterol 2021-06 Yes [id number] 2.5mg Inhale 0.5 [facility] 2.5 mg/0.5 0-18 mL every 6 ity of mL 00:00: (six) [place] nebulizer 00 hours as Medica l solution needed for Branc h Wheezing. lidocaine 2021-06 Yes [id number] 1{patch Apply 1 [facility] 1.8 % PtMd 0-18 } Patch to ity o f 00:00: area(s) [place] 00 daily. Medical Branch hydroCHLORO 2021-06 Yes [id number] take one [facility] thiazide 50 0-18 pill PO ity o f mg tablet 00:00: Daily [place] 00 Medical Branch losartan 2021-06 Yes [id number] 100mg Take 1 [facility] nicky 100 mg 0-18 tablet by ity of tablet 00:00: mouth in [place] 00 the Medical morning. Branch furosemide 2021-06 Yes [id number] 20mg Take 1 [facility] nivers 20 mg 0-18 tablet by ity of tablet 00:00: mouth in [place] 00 the Medical morning. Branch apixaban 2021-06 Yes [id number] 2.5mg Take 1 [facility] s (ELIQUIS) 0-18 tablet by ity o f 2.5 mg 00:00: mouth in [place] tablet 00 the Medical morning Branch and 1 tablet in the evening. Indication s: atrial fibrillati on famotidine 2021-06 Yes [id number] 20mg Take 1 [facility] 20 mg 0-18 tablet by ity of tablet 00:00: mouth in [place] 00 the Medical morning Branch and 1 tablet in the evening. albuterol 2021-06 Yes [id number] 2.5mg Inhale 3 [facility] 2.5 mg /3 0-18 mL every 6 ity of mL (0.083 00:00: (six) [place] %) 00 hours as Medical nebulizer needed for Bran ch solution Wheezing or Shortness of Breath. ipratropium 2021-06 Yes [id number] .5mg Inhale 2.5 [facility] 0.02 % 0-18 mL every 6 ity of nebulizer 00:00: (six) [place] solution 00 hours as Medical needed for Branch Wheezing or Shortness of Breath. fluticasone 2021-06 Yes [id number] 2{puff} Inhale 2 [facility] propionate 0-18 Puffs ity of (FLOVENT 00:00: every 12 [place] HFA) 110 00 (twelve) Medical mcg/actuati hours. Branch on inhaler albuterol 2021-06 Yes [id number] 2.5mg Inhale 0.5 [facility] 2.5 mg/0.5 0-18 mL every 6 ity of mL 00:00: (six) [place] nebulizer 00 hours as Medica l solution needed for Branc h Wheezing. lidocaine 2021-06 Yes [id number] 1{patch Apply 1 [facility] 1.8 % PtMd 0-18 } Patch to ity o f 00:00: area(s) [place] 00 daily. Medical Branch hydroCHLORO 2021-06 Yes [id number] take one [facility] thiazide 50 0-18 pill PO ity o f mg tablet 00:00: Daily [place] 00 Medical Branch losartan 2021-06 Yes [id number] 100mg Take 1 [facility] nicky 100 mg 0-18 tablet by ity of tablet 00:00: mouth in [place] 00 the Medical morning. Branch furosemide 2021-06 Yes [id number] 20mg Take 1 [facility] nivers 20 mg 0-18 tablet by ity of tablet 00:00: mouth in [place] 00 the Medical morning. Branch apixaban 2021-06 Yes [id number] 2.5mg Take 1 [facility] (ELIQUIS) 0-18 tablet by ity o f 2.5 mg 00:00: mouth in [place] tablet 00 the Medical morning Branch and 1 tablet in the evening. Indication s: atrial fibrillati on famotidine 2021-06 Yes [id number] 20mg Take 1 [facility] 20 mg 0-18 tablet by ity of tablet 00:00: mouth in [place] 00 the Medical morning Branch and 1 tablet in the evening. albuterol 2021-06 Yes [id number] 2.5mg Inhale 3 [facility] 2.5 mg /3 0-18 mL every 6 ity of mL (0.083 00:00: (six) [place] %) 00 hours as Medical nebulizer needed for Bran ch solution Wheezing or Shortness of Breath. ipratropium 2021-06 Yes [id number] .5mg Inhale 2.5 [facility] 0.02 % 0-18 mL every 6 ity of nebulizer 00:00: (six) [place] solution 00 hours as Medical needed for Branch Wheezing or Shortness of Breath. fluticasone 2021-06 Yes [id number] 2{puff} Inhale 2 [facility] propionate 0-18 Puffs ity of (FLOVENT 00:00: every 12 [place] HFA) 110 00 (twelve) Medical mcg/actuati hours. Branch on inhaler albuterol 2021-06 Yes [id number] 2.5mg Inhale 0.5 [facility] 2.5 mg/0.5 0-18 mL every 6 ity of mL 00:00: (six) [place] nebulizer 00 hours as Medica l solution needed for Branc h Wheezing. lidocaine 2021-06 Yes [id number] 1{patch Apply 1 [facility] 1.8 % PtMd 0-18 } Patch to ity o f 00:00: area(s) [place] 00 daily. Medical Branch hydroCHLORO 2021-06 Yes [id number] take one [facility] thiazide 50 0-18 pill PO ity o f mg tablet 00:00: Daily [place] 00 Medical Branch losartan 2021-06 Yes [id number] 100mg Take 1 [facility] 100 mg 0-18 tablet by ity of tablet 00:00: mouth in [place] 00 the Medical morning. Branch furosemide 2021-06 Yes [id number] 20mg Take 1 [facility] nivers 20 mg 0-18 tablet by ity of tablet 00:00: mouth in [place] 00 the Medical morning. Branch apixaban 2021-06 Yes [id number] 2.5mg Take 1 [facility] (ELIQUIS) 0-18 tablet by ity o f 2.5 mg 00:00: mouth in [place] tablet 00 the Medical morning Branch and 1 tablet in the evening. Indication s: atrial fibrillati on famotidine 2021-06 Yes [id number] 20mg Take 1 [facility] 20 mg 0-18 tablet by ity of tablet 00:00: mouth in [place] 00 the Medical morning Branch and 1 tablet in the evening. albuterol 2021-06 Yes [id number] 2.5mg Inhale 3 [facility] 2.5 mg /3 0-18 mL every 6 ity of mL (0.083 00:00: (six) [place] %) 00 hours as Medical nebulizer needed for Bran ch solution Wheezing or Shortness of Breath. ipratropium 2021-06 Yes [id number] .5mg Inhale 2.5 [facility] 0.02 % 0-18 mL every 6 ity of nebulizer 00:00: (six) [place] solution 00 hours as Medical needed for Branch Wheezing or Shortness of Breath. fluticasone 2021-06 Yes [id number] 2{puff} Inhale 2 [facility] propionate 0-18 Puffs ity of (FLOVENT 00:00: every 12 [place] HFA) 110 00 (twelve) Medical mcg/actuati hours. Branch on inhaler albuterol 2021-06 Yes [id number] 2.5mg Inhale 0.5 [facility] 2.5 mg/0.5 0-18 mL every 6 ity of mL 00:00: (six) [place] nebulizer 00 hours as Medica l solution needed for Branc h Wheezing. lidocaine 2021-06 Yes [id number] 1{patch Apply 1 [facility] 1.8 % PtMd 0-18 } Patch to ity o f 00:00: area(s) [place] 00 daily. Medical Branch hydroCHLORO 2021-06 Yes [id number] take one [facility] thiazide 50 0-18 pill PO ity o f mg tablet 00:00: Daily [place] 00 Medical Branch losartan 2021-06 Yes [id number] 100mg Take 1 [facility] nicky 100 mg 0-18 tablet by ity of tablet 00:00: mouth in [place] 00 the Medical morning. Branch furosemide 2021-06 Yes [id number] 20mg Take 1 [facility] nivers 20 mg 0-18 tablet by ity of tablet 00:00: mouth in [place] 00 the Medical morning. Branch apixaban 2021-06 Yes [id number] 2.5mg Take 1 [facility] (ELIQUIS) 0-18 tablet by ity o f 2.5 mg 00:00: mouth in [place] tablet 00 the Medical morning Branch and 1 tablet in the evening. Indication s: atrial fibrillati on famotidine 2021-06 Yes [id number] 20mg Take 1 [facility] 20 mg 0-18 tablet by ity of tablet 00:00: mouth in [place] 00 the Medical morning Branch and 1 tablet in the evening. albuterol 2021-06 Yes [id number] 2.5mg Inhale 3 [facility] 2.5 mg /3 0-18 mL every 6 ity of mL (0.083 00:00: (six) [place] %) 00 hours as Medical nebulizer needed for Bran ch solution Wheezing or Shortness of Breath. ipratropium 2021-06 Yes [id number] .5mg Inhale 2.5 [facility] 0.02 % 0-18 mL every 6 ity of nebulizer 00:00: (six) [place] solution 00 hours as Medical needed for Branch Wheezing or Shortness of Breath. fluticasone 2021-06 Yes [id number] 2{puff} Inhale 2 [facility] propionate 0-18 Puffs ity of (FLOVENT 00:00: every 12 [place] HFA) 110 00 (twelve) Medical mcg/actuati hours. Branch on inhaler albuterol 2021-06 Yes [id number] 2.5mg Inhale 0.5 [facility] 2.5 mg/0.5 0-18 mL every 6 ity of mL 00:00: (six) [place] nebulizer 00 hours as Medica l solution needed for Branc h Wheezing. lidocaine 2021-06 Yes [id number] 1{patch Apply 1 [facility] 1.8 % PtMd 0-18 } Patch to ity o f 00:00: area(s) [place] 00 daily. Medical Branch hydroCHLORO 2021-06 Yes [id number] take one [facility] thiazide 50 0-18 pill PO ity o f mg tablet 00:00: Daily [place] 00 Medical Branch losartan 2021-06 Yes [id number] 100mg Take 1 [facility] nick[facility] 100 mg 0-18 tablet by ity of tablet 00:00: mouth in [place] 00 the Medical morning. Branch furosemide 2021-06 Yes [id number] 20mg Take 1 [facility] nivers 20 mg 0-18 tablet by ity of tablet 00:00: mouth in [place] 00 the Medical morning. Branch apixaban 2021-06 Yes [id number] 2.5mg Take 1 [facility] (ELIQUIS) 0-18 tablet by ity o f 2.5 mg 00:00: mouth in [place] tablet 00 the Medical morning Branch and 1 tablet in the evening. Indication s: atrial fibrillati on famotidine 2021-06 Yes [id number] 20mg Take 1 [facility] 20 mg 0-18 tablet by ity of tablet 00:00: mouth in [place] 00 the Medical morning Branch and 1 tablet in the evening. albuterol 2021-06 Yes [id number] 2.5mg Inhale 3 [facility] 2.5 mg /3 0-18 mL every 6 ity of mL (0.083 00:00: (six) [place] %) 00 hours as Medical nebulizer needed for Bran ch solution Wheezing or Shortness of Breath. ipratropium 2021-06 Yes [id number] .5mg Inhale 2.5 [facility] 0.02 % 0-18 mL every 6 ity of nebulizer 00:00: (six) [place] solution 00 hours as Medical needed for Branch Wheezing or Shortness of Breath. fluticasone 2021-06 Yes [id number] 2{puff} Inhale 2 [facility] propionate 0-18 Puffs ity of (FLOVENT 00:00: every 12 [place] HFA) 110 00 (twelve) Medical mcg/actuati hours. Branch on inhaler albuterol 2021-06 Yes [id number] 2.5mg Inhale 0.5 [facility] 2.5 mg/0.5 0-18 mL every 6 ity of mL 00:00: (six) [place] nebulizer 00 hours as Medica l solution needed for Branc h Wheezing. lidocaine 2021-06 Yes [id number] 1{patch Apply 1 [facility] 1.8 % PtMd 0-18 } Patch to ity o f 00:00: area(s) [place] 00 daily. Medical Branch hydroCHLORO 2021-06 Yes [id number] take one [facility] thiazide 50 0-18 pill PO ity o f mg tablet 00:00: Daily [place] 00 Medical Branch furosemide 2021-06 Yes [id number] 20mg Take 1 [facility] nivers 20 mg 0-18 tablet by ity of tablet 00:00: mouth in [place] 00 the Medical morning. Branch apixaban 2021-06 Yes [id number] 2.5mg Take 1 [facility] (ELIQUIS) 0-18 tablet by ity o f 2.5 mg 00:00: mouth in [place] tablet 00 the Medical morning Branch and 1 tablet in the evening. Indication s: atrial fibrillati on famotidine 2021-06 Yes [id number] 20mg Take 1 [facility] 20 mg 0-18 tablet by ity of tablet 00:00: mouth in [place] 00 the Medical morning Branch and 1 tablet in the evening. albuterol 2021-06 Yes [id number] 2.5mg Inhale 3 [facility] 2.5 mg /3 0-18 mL every 6 ity of mL (0.083 00:00: (six) [place] %) 00 hours as Medical nebulizer needed for Bran ch solution Wheezing or Shortness of Breath. ipratropium 2021-06 Yes [id number] .5mg Inhale 2.5 [facility] 0.02 % 0-18 mL every 6 ity of nebulizer 00:00: (six) [place] solution 00 hours as Medical needed for Branch Wheezing or Shortness of Breath. fluticasone 2021-06 Yes [id number] 2{puff} Inhale 2 [facility] propionate 0-18 Puffs ity of (FLOVENT 00:00: every 12 [place] HFA) 110 00 (twelve) Medical mcg/actuati hours. Branch on inhaler albuterol 2021-06 Yes [id number] 2.5mg Inhale 0.5 [facility] 2.5 mg/0.5 0-18 mL every 6 ity of mL 00:00: (six) [place] nebulizer 00 hours as Medica l solution needed for Branc h Wheezing. lidocaine 2021-06 Yes [id number] 1{patch Apply 1 [facility] 1.8 % PtMd 0-18 } Patch to ity o f 00:00: area(s) [place] 00 daily. Medical Branch furosemide 2021-06 Yes [id number] 20mg Take 1 [facility] nivers 20 mg 0-18 tablet by ity of tablet 00:00: mouth in [place] 00 the Medical morning. Branch apixaban 2021-06 Yes [id number] 2.5mg Take 1 [facility] (ELIQUIS) 0-18 tablet by ity o f 2.5 mg 00:00: mouth in [place] tablet 00 the Medical morning Branch and 1 tablet in the evening. Indication s: atrial fibrillati on famotidine 2021-06 Yes [id number] 20mg Take 1 [facility] 20 mg 0-18 tablet by ity of tablet 00:00: mouth in [place] 00 the Medical morning Branch and 1 tablet in the evening. albuterol 2021-06 Yes [id number] 2.5mg Inhale 3 [facility] 2.5 mg /3 0-18 mL every 6 ity of mL (0.083 00:00: (six) [place] %) 00 hours as Medical nebulizer needed for Bran ch solution Wheezing or Shortness of Breath. ipratropium 2021-06 Yes [id number] .5mg Inhale 2.5 [facility] 0.02 % 0-18 mL every 6 ity of nebulizer 00:00: (six) [place] solution 00 hours as Medical needed for Branch Wheezing or Shortness of Breath. fluticasone 2021-06 Yes [id number] 2{puff} Inhale 2 [facility] propionate 0-18 Puffs ity of (FLOVENT 00:00: every 12 [place] HFA) 110 00 (twelve) Medical mcg/actuati hours. Branch on inhaler albuterol 2021-06 Yes [id number] 2.5mg Inhale 0.5 [facility] 2.5 mg/0.5 0-18 mL every 6 ity of mL 00:00: (six) [place] nebulizer 00 hours as Medica l solution needed for Branc h Wheezing. lidocaine 2021-06 Yes [id number] 1{patch Apply 1 [facility] 1.8 % PtMd 0-18 } Patch to ity o f 00:00: area(s) [place] 00 daily. Medical Branch hydroCHLORO 2021-06 Yes [id number] take one [facility] thiazide 50 0-18 pill PO ity o f mg tablet 00:00: Daily [place] 00 Medical Branch famotidine 2021-06 Yes [id number] 20mg Take 1 [facility] 20 mg 0-18 tablet by ity of tablet 00:00: mouth in [place] 00 the Medical morning Branch and 1 tablet in the evening. albuterol 2021-06 Yes [id number] 2.5mg Inhale 3 [facility] 2.5 mg /3 0-18 mL every 6 ity of mL (0.083 00:00: (six) [place] %) 00 hours as Medical nebulizer needed for Bran ch solution Wheezing or Shortness of Breath. ipratropium 2021-06 Yes [id number] .5mg Inhale 2.5 [facility] 0.02 % 0-18 mL every 6 ity of nebulizer 00:00: (six) [place] solution 00 hours as Medical needed for Branch Wheezing or Shortness of Breath. fluticasone 2021-06 Yes [id number] 2{puff} Inhale 2 [facility] propionate 0-18 Puffs ity of (FLOVENT 00:00: every 12 [place] HFA) 110 00 (twelve) Medical mcg/actuati hours. Branch on inhaler losartan 2021-06 Yes [id number] 100mg Take 1 [facility] nick[facility] 100 mg 0-18 tablet by ity of tablet 00:00: mouth in [place] 00 the Medical morning. Branch albuterol 2021-06 Yes [id number] 2.5mg Inhale 0.5 [facility] 2.5 mg/0.5 0-18 mL every 6 ity of mL 00:00: (six) [place] nebulizer 00 hours as Medica l solution needed for Branc h Wheezing. lidocaine 2021-06 Yes [id number] 1{patch Apply 1 [facility] 1.8 % PtMd 0-18 } Patch to ity o f 00:00: area(s) [place] 00 daily. Medical Branch furosemide 2021-06 Yes [id number] 20mg Take 1 [facility] nivers 20 mg 0-18 tablet by ity of tablet 00:00: mouth in [place] 00 the Medical morning. Branch apixaban 2021-06 Yes [id number] 2.5mg Take 1 Un[facility] s (ELIQUIS) 0-18 tablet by ity o f 2.5 mg 00:00: mouth in [place] tablet 00 the Medical morning Branch and 1 tablet in the evening. Indication s: atrial fibrillati on famotidine 2021-06 Yes [id number] 20mg Take 1 [facility] 20 mg 0-18 tablet by ity of tablet 00:00: mouth in [place] 00 the Medical morning Branch and 1 tablet in the evening. famotidine 2021-06 Yes [id number] 20mg Take 1 [facility] 20 mg 0-18 tablet by ity of tablet 00:00: mouth in [place] 00 the Medical morning Branch and 1 tablet in the evening. albuterol 2021-06 Yes [id number] 2.5mg Inhale 3 [facility] 2.5 mg /3 0-18 mL every 6 ity of mL (0.083 00:00: (six) [place] %) 00 hours as Medical nebulizer needed for Bran ch solution Wheezing or Shortness of Breath. metoprolol 2021-06 Yes [id number] 100mg Take 1 [facility] succinate 0-18 tablet by ity o f XL (TOPROL 00:00: mouth in [place] as XL) 100 mg 00 the Medical 24 hr morning. Branch tablet ipratropium 2021-06 Yes [id number] .5mg Inhale 2.5 [facility] 0.02 % 0-18 mL every 6 ity of nebulizer 00:00: (six) [place] solution 00 hours as Medical needed for Branch Wheezing or Shortness of Breath. fluticasone 2021-06 Yes [id number] 2{puff} Inhale 2 [facility] propionate 0-18 Puffs ity of (FLOVENT 00:00: every 12 [place] HFA) 110 00 (twelve) Medical mcg/actuati hours. Branch on inhaler albuterol 2021-06 Yes [id number] 2.5mg Inhale 0.5 [facility] 2.5 mg/0.5 0-18 mL every 6 ity of mL 00:00: (six) [place] nebulizer 00 hours as Medica l solution needed for Branc h Wheezing. lidocaine 2021-06 Yes [id number] 1{patch Apply 1 [facility] 1.8 % PtMd 0-18 } Patch to ity o f 00:00: area(s) [place] 00 daily. Medical Branch albuterol 2021-06 Yes [id number] 2.5mg Inhale 3 [facility] 2.5 mg /3 0-18 mL every 6 ity of mL (0.083 00:00: (six) [place] %) 00 hours as Medical nebulizer needed for Bran ch solution Wheezing or Shortness of Breath. ipratropium 2021-06 Yes [id number] .5mg Inhale 2.5 [facility] 0.02 % 0-18 mL every 6 ity of nebulizer 00:00: (six) [place] solution 00 hours as Medical needed for Branch Wheezing or Shortness of Breath. fluticasone 2021-06 Yes [id number] 2{puff} Inhale 2 [facility] propionate 0-18 Puffs ity of (FLOVENT 00:00: every 12 [place] HFA) 110 00 (twelve) Medical mcg/actuati hours. Branch on inhaler albuterol 2021-06 Yes [id number] 2.5mg Inhale 0.5 [facility] 2.5 mg/0.5 0-18 mL every 6 ity of mL 00:00: (six) [place] nebulizer 00 hours as Medica l solution needed for Branc h Wheezing. famotidine 2021-06 Yes [id number] 20mg Take 1 [facility] 20 mg 0-18 tablet by ity of tablet 00:00: mouth in [place] 00 the Medical morning Branch and 1 tablet in the evening. albuterol 2021-06 Yes [id number] 2.5mg Inhale 3 [facility] 2.5 mg /3 0-18 mL every 6 ity of mL (0.083 00:00: (six) [place] %) 00 hours as Medical nebulizer needed for Bran ch solution Wheezing or Shortness of Breath. ipratropium 2021-06 Yes [id number] .5mg Inhale 2.5 [facility] 0.02 % 0-18 mL every 6 ity of nebulizer 00:00: (six) [place] solution 00 hours as Medical needed for Branch Wheezing or Shortness of Breath. fluticasone 2021-06 Yes [id number] 2{puff} Inhale 2 [facility] propionate 0-18 Puffs ity of (FLOVENT 00:00: every 12 [place] HFA) 110 00 (twelve) Medical mcg/actuati hours. Branch on inhaler albuterol 2021-06 Yes [id number] 2.5mg Inhale 0.5 [facility] 2.5 mg/0.5 0-18 mL every 6 ity of mL 00:00: (six) [place] nebulizer 00 hours as Medica l solution needed for Branc h Wheezing. lidocaine 2021-06 Yes [id number] 1{patch Apply 1 [facility] 1.8 % PtMd 0-18 } Patch to ity o f 00:00: area(s) [place] 00 daily. Medical Branch amitriptyli 2021-06 Yes [id number] 5mg Take 0.5 [facility] ne 10 mg 0-18 tablets by ity o f tablet 00:00: mouth at [place] 00 bedtime. Medical Branch traMADoL-ac 2021-06 Yes [id number] 1{tbl} Take 1 [facility] nick[facility] etaminophen 0-18 tablet by ity of 37.5-325 mg 00:00: mouth [place] per tablet 00 every 6 Medica l (six) Branch hours as needed for Pain. Indication s: chronic pain lidocaine 2021-06 Yes [id number] 1{patch Apply 1 [facility] 1.8 % PtMd 0-18 } Patch to ity o f 00:00: area(s) [place] 00 daily. Medical Branch famotidine 2021-06 Yes [id number] 20mg Take 1 [facility] 20 mg 0-18 tablet by ity of tablet 00:00: mouth in [place] 00 the Medical morning Branch and 1 tablet in the evening. albuterol 2021-06 Yes [id number] 2.5mg Inhale 3 [facility] 2.5 mg /3 0-18 mL every 6 ity of mL (0.083 00:00: (six) [place] %) 00 hours as Medical nebulizer needed for Bran ch solution Wheezing or Shortness of Breath. ipratropium 2021-06 Yes [id number] .5mg Inhale 2.5 [facility] 0.02 % 0-18 mL every 6 ity of nebulizer 00:00: (six) [place] solution 00 hours as Medical needed for Branch Wheezing or Shortness of Breath. fluticasone 2021-06 Yes [id number] 2{puff} Inhale 2 [facility] propionate 0-18 Puffs ity of (FLOVENT 00:00: every 12 [place] HFA) 110 00 (twelve) Medical mcg/actuati hours. Branch on inhaler albuterol 2021-06 Yes [id number] 2.5mg Inhale 0.5 [facility] 2.5 mg/0.5 0-18 mL every 6 ity of mL 00:00: (six) [place] nebulizer 00 hours as Medica l solution needed for Branc h Wheezing. lidocaine 2021-06 Yes [id number] 1{patch Apply 1 [facility] 1.8 % PtMd 0-18 } Patch to ity o f 00:00: area(s) [place] 00 daily. Medical Branch famotidine 2021-06 Yes [id number] 20mg Take 1 [facility] 20 mg 0-18 tablet by ity of tablet 00:00: mouth in [place] 00 the Medical morning Branch and 1 tablet in the evening. albuterol 2021-06 Yes [id number] 2.5mg Inhale 3 [facility] 2.5 mg /3 0-18 mL every 6 ity of mL (0.083 00:00: (six) [place] %) 00 hours as Medical nebulizer needed for Bran ch solution Wheezing or Shortness of Breath. ipratropium 2021-06 Yes [id number] .5mg Inhale 2.5 [facility] 0.02 % 0-18 mL every 6 ity of nebulizer 00:00: (six) [place] solution 00 hours as Medical needed for Branch Wheezing or Shortness of Breath. fluticasone 2021-06 Yes [id number] 2{puff} Inhale 2 [facility] propionate 0-18 Puffs ity of (FLOVENT 00:00: every 12 [place] HFA) 110 00 (twelve) Medical mcg/actuati hours. Branch on inhaler albuterol 2021-06 Yes [id number] 2.5mg Inhale 0.5 [facility] 2.5 mg/0.5 0-18 mL every 6 ity of mL 00:00: (six) [place] nebulizer 00 hours as Medica l solution needed for Branc h Wheezing. lidocaine 2021-06 Yes [id number] 1{patch Apply 1 [facility] 1.8 % PtMd 0-18 } Patch to ity o f 00:00: area(s) [place] 00 daily. Medical Branch hydroCHLORO 2021-06 Yes [id number] take one [facility] thiazide 50 0-18 pill PO ity o f mg tablet 00:00: Daily [place] 00 Medical Branch losartan 2021-06 Yes [id number] 100mg Take 1 [facility] 100 mg 0-18 tablet by ity of tablet 00:00: mouth in [place] 00 the Medical morning. Branch furosemide 2021-06 Yes [id number] 20mg Take 1 [facility] nivers 20 mg 0-18 tablet by ity of tablet 00:00: mouth in [place] 00 the Medical morning. Branch famotidine 2021-06 Yes [id number] 20mg Take 1 [facility] 20 mg 0-18 tablet by ity of tablet 00:00: mouth in [place] 00 the Medical morning Branch and 1 tablet in the evening. albuterol 2021-06 Yes [id number] 2.5mg Inhale 3 [facility] 2.5 mg /3 0-18 mL every 6 ity of mL (0.083 00:00: (six) [place] %) 00 hours as Medical nebulizer needed for Bran ch solution Wheezing or Shortness of Breath. ipratropium 2021-06 Yes [id number] .5mg Inhale 2.5 [facility] 0.02 % 0-18 mL every 6 ity of nebulizer 00:00: (six) [place] solution 00 hours as Medical needed for Branch Wheezing or Shortness of Breath. fluticasone 2021-06 Yes [id number] 2{puff} Inhale 2 [facility] propionate 0-18 Puffs ity of (FLOVENT 00:00: every 12 [place] HFA) 110 00 (twelve) Medical mcg/actuati hours. Branch on inhaler albuterol 2021-06 Yes [id number] 2.5mg Inhale 0.5 [facility] 2.5 mg/0.5 0-18 mL every 6 ity of mL 00:00: (six) [place] nebulizer 00 hours as Medica l solution needed for Branc h Wheezing. lidocaine 2021-06 Yes [id number] 1{patch Apply 1 [facility] 1.8 % PtMd 0-18 } Patch to ity o f 00:00: area(s) [place] 00 daily. Medical Branch apixaban 2021-06 Yes [id number] 2.5mg Take 1 Un[facility] s (ELIQUIS) 0-18 tablet by ity o f 2.5 mg 00:00: mouth in [place] tablet 00 the Medical morning Branch and 1 tablet in the evening. Indication s: atrial fibrillati on famotidine 2021-06 Yes [id number] 20mg Take 1 [facility] 20 mg 0-18 tablet by ity of tablet 00:00: mouth in [place] 00 the Medical morning Branch and 1 tablet in the evening. metoprolol 2021-06 Yes [id number] 100mg Take 1 [facility] succinate 0-18 tablet by ity o f XL (TOPROL 00:00: mouth in [place] as XL) 100 mg 00 the Medical 24 hr morning. Branch tablet famotidine 2021-06 Yes [id number] 20mg Take 1 [facility] 20 mg 0-18 tablet by ity of tablet 00:00: mouth in [place] 00 the Medical morning Branch and 1 tablet in the evening. albuterol 2021-06 Yes [id number] 2.5mg Inhale 3 [facility] 2.5 mg /3 0-18 mL every 6 ity of mL (0.083 00:00: (six) [place] %) 00 hours as Medical nebulizer needed for Bran ch solution Wheezing or Shortness of Breath. ipratropium 2021-06 Yes [id number] .5mg Inhale 2.5 [facility] 0.02 % 0-18 mL every 6 ity of nebulizer 00:00: (six) [place] solution 00 hours as Medical needed for Branch Wheezing or Shortness of Breath. fluticasone 2021-06 Yes [id number] 2{puff} Inhale 2 [facility] propionate 0-18 Puffs ity of (FLOVENT 00:00: every 12 [place] HFA) 110 00 (twelve) Medical mcg/actuati hours. Branch on inhaler albuterol 2021-06 Yes [id number] 2.5mg Inhale 0.5 [facility] 2.5 mg/0.5 0-18 mL every 6 ity of mL 00:00: (six) [place] nebulizer 00 hours as Medica l solution needed for Branc h Wheezing. lidocaine 2021-06 Yes [id number] 1{patch Apply 1 [facility] 1.8 % PtMd 0-18 } Patch to ity o f 00:00: area(s) [place] 00 daily. Medical Branch albuterol 2021-06 Yes [id number] 2.5mg Inhale 3 [facility] 2.5 mg /3 0-18 mL every 6 ity of mL (0.083 00:00: (six) [place] %) 00 hours as Medical nebulizer needed for Bran ch solution Wheezing or Shortness of Breath. albuterol 2021-06 Yes 2.5mg Inhale 2.5 [facility] (2.5 0-18 mg. Health MG/3ML) 00:00: 0.083% 00 nebulizer solution amitriptyli 2021-06 Yes 5mg Take 5 mg U [facility] ne (Elavil) 0-18 by mouth. Hea lth 10 MG 00:00: tablet 00 apixaban 2021-06 Yes 2.5mg Take 2.5 [facility] (Eliquis) 0-18 mg by [facility] 2.5 MG 00:00: mouth. tablet 00 fluticasone 2021-06 Yes 2{puff} Q12H Inhale 2 [facility] (Flovent) 0-18 puffs Health 110 MCG/ACT 00:00: every 12 inhaler 00 (twelve) hours. furosemide 2021-06 Yes 1{tbl} Take 1 [facility] (Lasix) 20 0-18 tablet by Heal th MG tablet 00:00: mouth 1 00 (one) time each day in the morning. hydroCHLORO 2021-06 Yes take one [facility] thiazide 0-18 pill PO Health (HYDRODiuri 00:00: Daily l) 50 MG 00 tablet Lidocaine 2021-06 Yes 1{patch Apply 1 [facility] 1.8 % patch 0-18 } patch Health 00:00: topically. 00 losartan 2021-06 Yes 1{tbl} Take 1 [facility] (Cozaar) 0-18 tablet by [facility] 100 MG 00:00: mouth 1 tablet 00 (one) time each day in the morning. albuterol 2021-06 Yes 2.5mg Inhale 2.5 U T (2.5 0-18 mg. Health MG/3ML) 00:00: 0.083% 00 nebulizer solution amitriptyli 2021-06 Yes 5mg Take 5 mg U [facility] ne (Elavil) 0-18 by mouth. [facility]a [facility] 10 MG 00:00: tablet 00 apixaban 2021-06 Yes 2.5mg Take 2.5 [facility] (Eliquis) 0-18 mg by [facility] 2.5 MG 00:00: mouth. tablet 00 fluticasone 2021-06 Yes 2{puff} Q12H Inhale 2 [facility] (Flovent) 0-18 puffs Health 110 MCG/ACT 00:00: every 12 inhaler 00 (twelve) hours. furosemide 2021-06 Yes 1{tbl} Take 1 UT (Lasix) 20 0-18 tablet by Heal th MG tablet 00:00: mouth 1 00 (one) time each day in the morning. hydroCHLORO 2021-06 Yes take one UT thiazide 0-18 pill PO Health (HYDRODiuri 00:00: Daily l) 50 MG 00 tablet Lidocaine 2021-06 Yes 1{patch Apply 1 UT 1.8 % patch 0-18 } patch Health 00:00: topically. 00 losartan 2021-06 Yes 1{tbl} Take 1 UT (Cozaar) 0-18 tablet by Health 100 MG 00:00: mouth 1 tablet 00 (one) time each day in the morning. famotidine 2021-06- No [id number] 20mg Take 1 Univers 20 mg 0-18 10-30 tablet by ity of tablet 00:00: 00:00 mouth in [place] 00 :00 the Medical morning Branch and 1 tablet in the evening. furosemide 2021-06- No [id number] 20mg Take 1 Univers 20 mg 0-18 05-31 tablet by ity of tablet 00:00: 00:00 mouth in [place] 00 :00 the Medical morning. Branch apixaban 2021-06- No [id number] 2.5mg Take 1 Unive rs (ELIQUIS) 0-18 05-31 tablet by ity of 2.5 mg 00:00: 00:00 mouth in [place] tablet 00 :00 the Medical morning Branch and 1 tablet in the evening. Indication s: atrial fibrillati on furosemide 2021-06- No [id number] 20mg Take 1 Univers 20 mg 0-18 05-31 tablet by ity of tablet 00:00: 00:00 mouth in [place] 00 :00 the Medical morning. Branch apixaban 2021-06- No [id number] 2.5mg Take 1 Unive rs (ELIQUIS) 0-18 05-31 tablet by ity of 2.5 mg 00:00: 00:00 mouth in [place] tablet 00 :00 the Medical morning Branch and 1 tablet in the evening. Indication s: atrial fibrillati on hydroCHLORO 2021-06- No [id number] take one Univers thiazide 50 0-18 05-25 pill PO ity of mg tablet 00:00: 00:00 Daily [place] 00 :00 Medical Branch losartan 2021-06- No [id number] 100mg Take 1 U nivers 100 mg 0 05-19 tablet by ity of tablet 00:00: 00:00 mouth in [place] 00 :00 the Medical morning. Branch famotidine 2021-06- No 1{tbl} Q.5D Take 1 UT (Pepcid) 20 0-18 -03 tablet by He alth MG tablet 00:00: 00:00 mouth 2 00 :00 (two) times a day, in the morning and at bedtime. ipratropium 2021-06 No .5mg Inhale 0.5 UT (Atrovent) 0-18 -03 mg. Health 0.02 % 00:00: 00:00 nebulizer 00 :00 solution traMADol-ac 2021-06- No 1{tbl} Take 1 U T etaminophen 018 -03 tablet by He alth (UltraCET) 00:00: 00:00 mouth. 37.5-325 MG 00 :00 tablet famotidine 2021-06- No 1{tbl} Q.5D Take 1 UT (Pepcid) 20 0-18 -03 tablet by He alth MG tablet 00:00: 00:00 mouth 2 00 :00 (two) times a day, in the morning and at bedtime. ipratropium 2021-06- No .5mg Inhale 0.5 UT (Atrovent) 0-18 -03 mg. Health 0.02 % 00:00: 00:00 nebulizer 00 :00 solution traMADol-ac 2021-06 No 1{tbl} Take 1 U T etaminophen 0-18 -03 tablet by He alth (UltraCET) 00:00: 00:00 mouth. 37.5-325 MG 00 :00 tablet amitriptyli 2021-06 No [id number] 5mg Take 0.5 Univers ne 10 mg 0-18 11-30 tablets by ity of tablet 00:00: 00:00 mouth at [place] 00 :00 [facility]. [facility]- No [id number] 1{tbl} Take 1 U nivers etaminophen 0-18 11-30 tablet by it y of 37.5-325 mg 00:00: 00:00 [place] per tablet 00 :00 every 6 Medica l (six) Branch hours as needed for Pain. Indication s: chronic pain amitriptyli 2021-06 No [id number] 5mg Take 0.5 Univers ne 10 mg 0-18 11-30 tablets by ity of tablet 00:00: 00:00 mouth at [place] 00 :00 [facility]time. [facility]-06 No [id number] 1{tbl} Take 1 U nivers etaminophen 0-18 11-30 tablet by it y of 37.5-325 mg 00:00: 00:00 [place] per tablet 00 :00 every 6 Medica l (six) Branch hours as needed for Pain. Indication s: chronic pain amitriptyli 2021-06 [id number] 5mg Take 0.5 Univers ne 10 mg 0-18 11-30 tablets by ity of tablet 00:00: 00:00 mouth at [place] 00 :00 bedtime. [facility]-06 No [id number] 1{tbl} Take 1 U nivers etaminophen 0-18 11-30 tablet by it y of 37.5-325 mg 00:00: 00:00 [place] per tablet 00 :00 every 6 Medica l (six) Branch hours as needed for Pain. Indication s: chronic pain amitriptyli 2021-06 No [id number] 5mg Take 0.5 Univers ne 10 mg 0-18 11-30 tablets by ity of tablet 00:00: 00:00 mouth at [place] 00 :00 bedtime. [facility] traMADoL- 2021-06 No [id number] 1{tbl} Take 1 U nivers etaminophen 0-18 11-30 tablet by it y of 37.5-325 mg 00:00: 00:00 [place] per tablet 00 :00 every 6 Medica l (six) Branch hours as needed for Pain. Indication s: chronic pain amitriptyli 2021-06- No [id number] 5mg Take 0.5 Univers ne 10 mg 018 -30 tablets by ity of tablet 00:00: 00:00 mouth at [place] 00 :00 bedtime. Medical Branch traMADoL-ac 2021-06- No [id number] 1{tbl} Take 1 U nivers etaminophen 018 -30 tablet by it y of 37.5-325 mg 00:00: 00:00 [place] per tablet 00 :00 every 6 Medica l (six) Branch hours as needed for Pain. Indication s: chronic pain metoprolol 2021-06- No [id number] 100mg Take 1 Univers succinate 04-11 tablet by ity of XL (TOPROL 00:00: 00:00 mouth in [place] XL) 100 mg 00 :00 the Medical 24 hr morning. Branch tablet ELIQUIS 2.5 2021-06- No Unive rs mg tablet 0-08 17-18 ity of 00:00: 00:00 [place] 00 :00 Medical Branch losartan 2021-06- No Univers 100 mg 0-03 10-18 ity of tablet 00:00: 00:00 [place] 00 :00 Medical Branch ELIQUIS 2.5 2021-06- No Unive rs mg tablet 0-08 17-18 ity of 00:00: 00:00 [place] 00 :00 Medical Branch losartan 2021-2021- No Univers 100 mg 0-03 10-18 ity of tablet 00:00: 00:00 [place] 00 :00 Medical Branch busPIRone 5 0 Yes Univer s mg tablet 8- ity of 00:00: 00 Medical Branch busPIRone 5 2021-0 Yes Univer s mg tablet 8- ity of 00:00: 00 Medical Branch busPIRone 5 2021-0 Yes Univer s mg tablet 8- ity of 00:00: 00 Medical Branch busPIRone 5 2021-0 Yes Univer s mg tablet 8- ity of 00:00: Medical Branch busPIRone 5 2021-0 Yes Univer s mg tablet 8-26 ity of 00:00: [place] 00 Medical Branch busPIRone 5 2021-0 Yes Univer s mg tablet 02-02 ity of 00:00: [place] 00 Medical Branch busPIRone 5 2021-0 Yes Univer s mg tablet 02-02 ity of 00:00: [place] 00 Medical Branch busPIRone 2021-0 2023- No UT (Buspar) 5 02-02 Health MG tablet 00:00: 00:00 00 :00 busPIRone 2-0 2023- No UT (Buspar) 5 02-02 Health MG tablet 00:00: 00:00 00 :00 busPIRone 5 2021-0 202- No Unive rs mg tablet 02-02 ity of 00:00: 00:00 [place] 00 :00 Medical Branch busPIRone 5 2021-0 2022- No Unive rs mg tablet 02-0230 ity of 00:00: 00:00 [place] 00 :00 Medical Branch busPIRone 5 2021-0 2022- No Unive rs mg tablet 02-0230 ity of 00:00: 00:00 [place] 00 :00 Medical Branch busPIRone 5 2021-0 2022- No Unive rs mg tablet 02-0230 ity of 00:00: 00:00 [place] 00 :00 Medical Branch busPIRone 5 2021-0 2022- No Unive rs mg tablet 02-0230 ity of 00:00: 00:00 [place] 00 :00 Medical Branch levocetiriz 2021-0 Yes Univer s ine 5 mg 8-25 ity of tablet 00:00: [place] 00 Medical Branch levocetiriz 2021-0 Yes Univer s ine 5 mg 8-25 ity of tablet 00:00: [place] 00 Medical Branch levocetiriz 2021-0 Yes Univer s ine 5 mg 8-25 ity of tablet 00:00: [place] 00 Medical Branch levocetiriz 2021-0 Yes Univer s ine 5 mg 8-25 ity of tablet 00:00: [place] 00 Medical Branch levocetiriz 2021-0 Yes Univer s ine 5 mg 8-25 ity of tablet 00:00: [place] 00 Medical Branch levocetiriz Yes Univer s ine 5 mg 8-25 ity of tablet 00:00: [place] 00 Medical Branch levocetiriz Yes Univer s ine 5 mg 8-25 ity of tablet 00:00: [place] 00 Medical Branch levocetiriz Yes UT ine (Xyzal) 8-25 Health 5 MG tablet 00:00: 00 levocetiriz Yes UT ine (Xyzal) 8-25 Health 5 MG tablet 00:00: 00 levocetiriz 2021- No Unive rs ine 5 mg 8-25 11-30 ity of tablet 00:00: 00:00 [place] 00 :00 Medical Branch levocetiriz 2021- No Unive rs ine 5 mg 8-25 11-30 ity of tablet 00:00: 00:00 [place] 00 :00 Medical Branch levocetiriz 2021- No Unive rs ine 5 mg 8-25 11-30 ity of tablet 00:00: 00:00 [place] 00 :00 Medical Branch levocetiriz 2021- No Unive rs ine 5 mg 8-25 11-30 ity of tablet 00:00: 00:00 [place] 00 :00 Medical Branch levocetiriz 2021- No Unive rs ine 5 mg 8-25 11-30 ity of tablet 00:00: 00:00 [place] 00 :00 Medical Branch fluticasone Yes UT (Flonase) 5-19 Health 50 MCG/ACT 00:00: nasal spray 00 fluticasone Yes UT (Flonase) 5-19 Health 50 MCG/ACT 00:00: nasal spray 00 Apixaban Apixaban Yes 2.5 TWICE A [employer] 3-14 DAY (0900; lle (ELIQUIS (ELIQUIS 15:2099) John otto 2.5 MG TAB) 2.5 MG TAB) 00 l 2.5 MG TAB 2.5 MG TAB [facility] METOPROLOL METOPROLOL Yes 150 TWICE A [place] TARTRATE TARTRATE 3-14 DAY (0900; l le (METOPROLOL (METOPROLOL 15:31: 2100) Memoria 50 MG TAB) 50 MG TAB) 00 l 50 MG TAB 50 MG TAB Hospi ta l NIASPAN 2006-06- No take 1 and Uni vers 1,000 MG 0-10 10-18 1/2 pills ity o f ORAL TBSR 00:00: 00:00 daily [place] 00 :00 Medical Branch NIASPAN 2006-06- No take 1 and Uni vers 1,000 MG 0-10 10-18 1/2 pills ity o f ORAL TBSR 00:00: 00:00 daily [place] 00 :00 Medical Branch METOPROLOL 2021- No [id number] 11/2 tab Univers SUCCINATE 06-14 by mouth ity o f 50 MG ORAL 00:00: 00:00 every day [place] TB24 00 :00 Medical Branch HYDROCHLORO 2021- No [id number] take one Univers THIAZIDE 25 06-14-18 pill PO ity of MG ORAL TAB 00:00: 00:00 [place] 00 :[place] [facility] PRAVASTATIN 2021- No [id number] 1 Tab Oral Univers 20 MG ORAL 06-1418 DAILY ity of TAB 00:00: 00:00 [place] 00 :00 Medical Branch HYDROCODONE 2021- No [id number] 1-2 Tab Univers -ACETAMINOP 06-14 Oral ity of HEN 5-325 00:00: 00:00 Q4HPRN [place] MG ORAL TAB 00 :00 Medical Branch TEMAZEPAM 2021- No [id number] 1 Cap Oral Univers 15 MG ORAL 06-14 QHSPRN ity of CAP 00:00: 00:00 [place] 00 :00 Medical Branch CARISOPRODO 2021- No [id number] 1 Tab Oral Univers L 350 MG 06-14 BID ity of ORAL TAB 00:00: 00:00 [place] 00 :00 Medical Branch METOPROLOL 2021- No [id number] 11/2 tab Univers SUCCINATE 06-1418 by mouth ity o f 50 MG ORAL 00:00: 00:00 every day [place] TB24 00 :00 Medical Branch HYDROCHLORO 2021- No [id number] take one Univers THIAZIDE 25 06-14-18 pill PO ity of MG ORAL TAB 00:00: 00:[place] 00 [place] [facility] PRAVASTATIN 2006-2- No [id number] 1 Tab Oral Univers 20 MG ORAL 06-14 10-18 DAILY ity of TAB 00:00: 00:00 [place] 00 :00 Medical Branch HYDROCODONE 2021- No [id number] 1-2 Tab Univers -ACETAMINOP 06-14-18 Oral ity of HEN 5-325 00:00: 00:00 Q4HPRN [place] MG ORAL TAB 00 :00 Medical Branch TEMAZEPAM 2006-2- No [id number] 1 Cap Oral Univers 15 MG ORAL 06-14-18 QHSPRN ity of CAP 00:00: 00:00 [place] 00 :00 Medical Branch CARISOPRODO 2021- No [id number] 1 Tab Oral Univers L 350 MG 06-14-18 BID ity of ORAL TAB 00:00: 00:00 [place] 00 :00 Medical Branch BACTRIM DS 2005-06- No [id number] 1 by mouth Univers 160-800 MG 07-08 10-18 two times ity of ORAL TAB 00:00: 00:00 a day [place] 00 :00 Medical Branch BACTRIM DS 2005-2021- No [id number] 1 by mouth Univers 160-800 MG 07-08 10-18 two times ity of ORAL TAB 00:00: 00:00 a day [place] 00 :00 Medical Branch BACTRIM DS 2005-2021- No [id number] 1 tab PO q Univers 160-800 MG 1 10-18 12hrs ity of ORAL TAB 00:00: 00:00 [place] 00 :00 Medical Branch BACTRIM DS 2005-06- No [id number] 1 tab PO q Univers 160-800 MG -22 10-18 12hrs ity of ORAL TAB 00:00: 00:00 [place] 00 :00 Medical Branch METOPROLOL 2005-2021- No take 1 Univ ers TARTRATE 50 0-30 10-18 pill PO ity of MG ORAL TAB 00:00: 00:00 Q12h [place] 00 :00 Medical Branch FAMOTIDINE 2005-2021- No 1 Tab Oral Univers 20 MG ORAL 0-30 10-18 [id number] ity o f TAB 00:00: 00:00 [place] 00 :00 Medical Branch ASPIRIN, 2005-06- No 1 Tab Oral Un nicky BUFFERED 0-30 10-18 DAILY ity of 325 MG ORAL 00:00: 00:00 [place] TAB 00 :00 Medical Branch METOPROLOL 2005-06- No take 1 Univ ers TARTRATE 50 0-30 10-18 pill PO ity of MG ORAL TAB 00:00: 00:00 Q12h [place] 00 :00 Medical Branch FAMOTIDINE 2005-06- No 1 Tab Oral Univers 20 MG ORAL 0-30 10-18 [id number] ity o f TAB 00:00: 00:00 [place] 00 :00 Medical Branch ASPIRIN, 2005-06- No 1 Tab Oral Un nicky BUFFERED 0-30 10-18 DAILY ity of 325 MG ORAL 00:00: 00:00 [place] TAB 00 :00 Medical Branch Amitriptyli Amitriptyli Yes 10 AT BEDTIME [place] ne HCl 10 ne HCl 10 (2099) as lle MG TAB MG TAB needed [facility] Amlodipine Amlodipine Yes 5 EVERY [facility] Besylate Besylate MORNING lle (AMLODIPINE (AMLODIPINE M emoria 5 MG TAB) 5 5 MG TAB) 5 l MG TAB MG TAB Hospita l B Complex B Complex Yes 1 EVERY DAY [place] W/ C W/ C @ 0900 lle (B-Complex (B-Complex Mem oria Plus Plus l Vitamin C) Vitamin C) [facility] TAB TAB l CHOLECALCIF CHOLECALCIF Yes 2000 EVERY DAY [place] JACKSON JACKSON @ 0900 lle (VITAMIN (VITAMIN Memoria D-3 2000 D-3 2000 l UNIT TAB) UNIT TAB) Hospi ta 2,000 UNIT 2,000 UNIT l TAB TAB Doxazosin Doxazosin Yes 2 AT BEDTIME [place] Mesylate Mesylate (2099) lle (DOXAZOSIN (DOXAZOSIN Mem oria 2 MG TAB) 2 2 MG TAB) 2 l MG TAB MG TAB Hospita l FUROSEMIDE FUROSEMIDE Yes 10 EVERY DAY [place] (FUROSEMIDE (FUROSEMIDE @ 0900 lle 20 MG TAB) 20 MG TAB) Mem oria 20 MG TAB 20 MG TAB l Hospita l Hydrocodone Hydrocodone Yes 1 FOUR TIMES [place] -Acetaminop -Acetaminop A DAY lle hen hen (0900) as Memoria (HYDROCODON (HYDROCODON needed l E/APAP E/APAP Hospita 10/325 MG 10/325 MG l TAB) 1 TAB TAB) 1 TAB TAB TAB Losartan Losartan Yes 100 [place] Potassium Potassium lle 100 MG TAB 100 MG TAB Mem oria l Hospita l OMEGA-3 OMEGA-3 Yes 340 EVERY DAY [place] [facility] FATTY ACIDS FATTY ACIDS @ 0900 lle (OMEGA 3 (OMEGA 3 Memoria (MULTIPLE (MULTIPLE l STRENGTHS) STRENGTHS) [facility] CAP) 340 MG CAP) 340 MG l CAP CAP Omeprazole Omeprazole Yes 20 EVERY DAY [place] (PRILOSEC (PRILOSEC @ 0900 lle 20 MG CAP) 20 MG CAP) Mem oria 20 MG CAP 20 MG CAP l Hospita l Potassium Potassium Yes 10 EVERY DAY [facility] Chloride Chloride @ 0900 lle (Klor-Con (Klor-Con Memor ia M10) 10 MEQ M10) 10 MEQ l TAB TAB Hospita l Pravastatin Pravastatin Yes 20 AT BEDTIME [place] Sodium 20 Sodium 20 (2100) lle MG TAB MG TAB [facility]ita [facility] Vitamin E Vitamin E Yes 400 EVERY DAY [place] (Vit E (Vit E @ 0900 lle Complx) 400 Complx) 400 M emoria UNIT CAP UNIT CAP l Hospita l Immunizations Ordered Filled Date Status Comments Source Immunization Name Immunization Name Influenza Virus 2006-03-22 Completed Universit y of Vaccine 00:00:00 [facility] Influenza Virus 2006-03-22 Completed Universit y of Vaccine 00:00:00 [facility] Influenza Virus 2006-03-22 Completed Universit y of Vaccine 00:00:00 [facility] Influenza Virus 2006-03-22 Completed Universit y of Vaccine 00:00:00 [facility] Influenza Virus 2006-03-22 Completed Universit y of Vaccine 00:00:00 [facility] Influenza Virus 2006-03-22 Completed Universit y of Vaccine 00:00:00 [facility] Influenza Virus 2006-03-22 Completed Universit y of Vaccine 00:00:00 [facility] Influenza Virus 2006-03-22 Completed Universit y of Vaccine 00:00:00 [facility] Influenza Virus 2006-03-22 Completed Universit y of Vaccine 00:00:00 [facility] Influenza Virus 2006-03-22 Completed Universit y of Vaccine 00:00:00 [facility] Influenza Virus 2006-03-22 Completed Universit y of Vaccine 00:00:00 [facility] Influenza Virus 2006-03-22 Completed Universit y of Vaccine 00:00:00 [facility] Influenza Virus 2006-03-22 Completed Universit y of Vaccine 00:00:00 [facility] Influenza Virus 2006-03-22 Completed Universit y of Vaccine 00:00:00 [facility] Influenza Virus 2006-03-22 Completed Universit y of Vaccine 00:00:00 [facility] Influenza Virus 2006-03-22 Completed Universit y of Vaccine 00:00:00 [facility] Influenza Virus 2006-03-22 Completed Universit y of Vaccine 00:00:00 [facility] Influenza Virus 2006-03-22 Completed Universit y of Vaccine 00:00:00 [facility] Influenza Virus 2006-03-22 Completed Universit y of Vaccine 00:00:00 [facility] Influenza Virus 2006-03-22 Completed Universit y of Vaccine 00:00:00 [facility] Influenza Virus 2006-03-22 Completed Universit y of Vaccine 00:00:00 [facility] Influenza Virus 2006-03-22 Completed Universit y of Vaccine 00:00:00 [facility] Influenza Virus 2006-03-22 Completed Universit y of Vaccine 00:00:00 [facility] Influenza Virus 2006-03-22 Completed Universit y of Vaccine 00:00:00 [facility] Influenza Virus 2006-03-22 Completed Universit y of Vaccine 00:00:00 [facility] Influenza Virus 2006-03-22 Completed Universit y of Vaccine 00:00:00 [facility] Influenza Virus 2006-03-22 Completed Universit y of Vaccine 00:00:00 [facility] Influenza Virus 2006-03-22 Completed Universit y of Vaccine 00:00:00 [facility] Influenza Virus 2006-03-22 Completed Universit y of Vaccine 00:00:00 [facility] Influenza Virus 2006-03-22 Completed Universit y of Vaccine 00:00:00 [facility] Influenza Virus 2006-03-22 Completed Universit y of Vaccine 00:00:00 [facility] Influenza Virus 2006-03-22 Completed Universit y of Vaccine 00:00:00 [facility] Influenza Virus 2006-03-22 Completed Universit y of Vaccine 00:00:00 [facility] Influenza Virus 2006-03-22 Completed Universit y of Vaccine 00:00:00 [facility] Influenza Virus 2006-03-22 Completed Universit y of Vaccine 00:00:00 [facility] Influenza Virus 2006-03-22 Completed Universit y of Vaccine 00:00:00 [facility] Influenza Virus 2006-03-22 Completed Universit y of Vaccine 00:00:00 [facility] Influenza Virus 2006-03-22 Completed Universit y of Vaccine 00:00:00 [facility] Influenza Virus 2006-03-22 Completed Universit y of Vaccine 00:00:00 [facility] Influenza Virus 2006-03-22 Completed Universit y of Vaccine 00:00:00 [facility] Influenza Virus 2006-03-22 Completed Universit y of Vaccine 00:00:00 [facility] Influenza Virus 2006-03-22 Completed Universit y of Vaccine 00:00:00 [facility] Influenza Virus 2006-03-22 Completed Universit y of Vaccine 00:00:00 [facility] Influenza Virus 2006-03-22 Completed Universit y of Vaccine 00:00:00 [facility] Influenza Virus 2006-03-22 Completed Universit y of Vaccine 00:00:00 [facility] Influenza Virus 2006-03-22 Completed Universit y of Vaccine 00:00:00 [facility] Influenza Virus Unknown Completed Universit y of Vaccine [facility] Influenza Virus Unknown Completed Universit y of Vaccine [facility] Influenza Virus Unknown Completed Universit y of Vaccine [facility] Influenza Virus Unknown Completed Universit y of Vaccine [facility] Influenza Virus Unknown Completed Universit y of Vaccine [facility] Influenza Virus Unknown Completed Universit y of Vaccine [facility] Influenza Virus Unknown Completed Universit y of Vaccine [facility] Influenza Virus Unknown Completed Universit y of Vaccine [facility] Vital Signs Vital Name Observation Time Observation Value Comments Source Systolic blood 2023-01-25 18:48:00 199 mm[Hg] Univer sity of pressure [facility] Diastolic blood 2023-01-25 18:48:00 76 mm[Hg] Unive rsity of pressure [facility] Body weight 2023-01-25 18:22:00 46.947 kg [facility] BMI 2023-01-25 18:22:00 20.90 kg/m2 [facility] Systolic blood 2023-01-15 21:02:00 148 mm[Hg] Univer sity of pressure [facility] Diastolic blood 2023-01-15 21:02:00 56 mm[Hg] Unive rsity of pressure [place] [facility] Heart rate 2023-01-15 21:00:00 60 /min [facility] [place] [facility] Body temperature 2023-01-15 21:00:00 37.28 Dotty Univ ersity of [place] [facility] Respiratory rate 2023-01-15 21:00:00 16 /min Univ ersity of [place] [facility] Body height 2023-01-15 21:00:00 149.9 cm [facility] [place] [facility] Body weight 2023-01-15 21:00:00 45.859 kg [facility] [place] [facility] BMI 2023-01-15 21:00:00 20.42 kg/m2 [facility] [place] [facility] Oxygen saturation in 2023-01-15 21:00:00 99 /min University of Arterial blood by [facility] kiko Pulse oximetry Branch Systolic blood 2023-01-03 19:36:00 212 mm[Hg] Univer sity of pressure [place] [facility] Diastolic blood 2023-01-03 19:36:00 71 mm[Hg] Unive rsity of pressure [place] [facility] Heart rate 2023-01-03 19:31:00 60 /min [facility] [place] [facility] Body temperature 2023-01-03 19:31:00 36.22 Dotty Univ ersity of [place] [facility] Body height 2023-01-03 19:31:00 149.9 cm [facility] [place] [facility] Body weight 2023-01-03 19:31:00 47.038 kg [facility] [place] [facility] BMI 2023-01-03 19:31:00 20.94 kg/m2 [facility] [place] [facility] Oxygen saturation in 2023-01-03 19:31:00 99 /min University of Arterial blood by [place] Medi kiko Pulse oximetry Branch Systolic blood 2022-12-24 18:40:00 135 mm[Hg] Univer sity of pressure [place] [facility] Diastolic blood 2022-12-24 18:40:00 65 mm[Hg] Unive rsity of pressure [place] [facility] Heart rate 2022-12-24 18:39:00 60 /min [facility] [place] [facility] Respiratory rate 2022-12-24 18:39:00 18 /min Univ ersity of [place] [facility] Body height 2022-12-24 18:39:00 149.9 cm [facility] [place] [facility] Body weight 2022-12-24 18:39:00 46.403 kg [facility] [place] [facility] BMI 2022-12-24 18:39:00 20.66 kg/m2 [facility] [place] [facility] Systolic blood 2022-11-22 23:39:00 108 mm[Hg] Univer sity of pressure [place] [facility] Diastolic blood 2022-11-22 23:39:00 88 mm[Hg] Unive rsity of pressure [place] [facility] Heart rate 2022-11-22 23:39:00 60 /min [facility] [place] [facility] Respiratory rate 2022-11-22 23:39:00 21 /min Univ ersity of [place] [facility] Oxygen saturation in 2022-11-22 23:39:00 99 /min University of Arterial blood by [place] [employer] kiko Pulse oximetry Branch Body temperature 2022-11-22 22:18:00 36.33 Dotty Univ [facility] [place] [facility] Body weight 2022-11-22 22:18:00 47.9 kg [facility] [place] [facility] BMI 2022-11-22 22:18:00 21.33 kg/m2 [facility] [place] [facility] Systolic blood 2022-11-22 22:02:00 201 mm[Hg] Univer sity of pressure [place] [facility] Diastolic blood 2022-11-22 22:02:00 69 mm[Hg] Unive rsity of pressure [place] [facility] Heart rate 2022-11-22 21:08:00 59 /min [facility] [place] [facility] Body temperature 2022-11-22 21:08:00 36.56 Dot[place] Univ [facility] [place] [facility] Body height 2022-11-22 21:08:00 149.9 cm [facility] [place] [facility] Body weight 2022-11-22 21:08:00 47.854 kg [facility] [place] [facility] BMI 2022-11-22 21:08:00 21.31 kg/m2 [facility] [place] [facility] Oxygen saturation in 2022-11-22 21:08:00 99 /min University of Arterial blood by [place] [employer] kiko Pulse oximetry Branch Systolic blood 2022-11-07 18:27:00 175 mm[Hg] Univer sity of pressure [place] [facility] Diastolic blood 2022-11-07 18:27:00 74 mm[Hg] Unive rsity of pressure [place] [facility] Heart rate 2022-11-07 18:27:00 61 /min [facility] [place] [facility] Body temperature 2022-11-07 18:27:00 36.39 Dot[place] Univ [facility] [place] [facility] Respiratory rate 2022-11-07 18:27:00 18 /min Univ ers[facility] [place] [facility] Body height 2022-11-07 18:27:00 149.9 cm [facility] [place] [facility] Body weight 2022-11-07 18:27:00 46.766 kg [facility] [place] [facility] BMI 2022-11-07 18:27:00 20.82 kg/m2 [facility] [place] [facility] Oxygen saturation in 2022-11-07 18:27:00 99 /min University of Arterial blood by [place] [employer] kiko Pulse oximetry Branch Systolic blood 2022-05-09 17:16:00 161 mm[Hg] Univer sity of pressure [facility] Diastolic blood 2022-05-09 17:16:00 71 mm[Hg] Unive rsity of pressure [facility] Heart rate 2022-05-09 17:12:00 70 /min [facility] Body temperature 2022-05-09 17:12:00 36.44 Dotty [facility] Respiratory rate 2022-05-09 17:12:00 18 /min [facility] Body height 2022-05-09 17:12:00 149.9 cm [facility] Body weight 2022-05-09 17:12:00 45.36 kg [facility] BMI 2022-05-09 17:12:00 20.20 kg/m2 [facility] Oxygen saturation in 2022-05-09 17:12:00 97 /min [facility] of Arterial blood by [place] [facility] P[facility] oximetry Branch Systolic blood 2022-05-09 17:17:00 161 mm[Hg] Univer sity of pressure [facility] Diastolic blood 2022-05-09 17:17:00 71 mm[Hg] Unive rsity of pressure [facility] Heart rate 2022-05-09 17:07:00 70 /min [facility] Body temperature 2022-05-09 17:07:00 36.44 Dotty [facility] Respiratory rate 2022-05-09 17:07:00 18 /min [facility] Body height 2022-05-09 17:07:00 149.9 cm [facility] Body weight 2022-05-09 17:07:00 45.36 kg [facility] BMI 2022-05-09 17:07:00 20.20 kg/m2 [facility] Oxygen saturation in 2022-05-09 17:07:00 97 /min [facility] Arterial blood by [place] [facility] oxim[facility] Branch Systolic blood 2022-04-20 17:19:00 109 mm[Hg] [facility] Diastolic blood 2022-04-20 17:19:00 66 mm[Hg] [facility] Heart rate 2022-04-20 17:19:00 57 /min [facility] Body height 2022-04-20 17:19:00 149.9 cm [facility] weight 2022-04-20 17:19:00 44.453 [facility] BMI 2022-04-20 17:19:00 19.79 kg/m2 [facility] Systolic blood 2022-03-27 15:40:00 184 mm[Hg] Univer sity of pressure [facility] Diastolic blood 2022-03-27 15:40:00 81 mm[Hg] Unive rsity of pressure [facility] Heart rate 2022-03-27 15:40:00 67 /min [facility] Respiratory rate 2022-03-27 15:40:00 18 /min [facility] Body height 2022-03-27 15:40:00 149.9 cm [facility] Body weight 2022-03-27 15:40:00 45.36 kg [facility] BMI 2022-03-27 15:40:00 20.20 kg/m2 [facility] Oxygen saturation in 2022-03-27 15:40:00 98 /min University of Arterial blood by [id number] [facility] P[facility] oxim[facility] Branch Respiratory rate 2017-08-21 15:33:00 27 [facility] Procedure Date / Time Performing Clinician Source Performed CT ABDOMEN PELVIS W 2023-03-19 16:37:[address] [facility] CONTRAST [facility] OP CORRESPONDENCE 2023-02-01 05:01:00 Doctor Unassigned, [facility] [place] Medical Secretary US ABDOMEN LIMITED 2022-12-18 16:37:34 Chuy Castillo [facility] ECG 12-LEAD 2022-12-07 18:22:50 HematpoJesse [facility]fe [facility] CONSENT/REFUSAL FOR 2022-11-22 22:08:28 Doctor Unassigned, [facility] DIAGNOSIS AND TREATMENT [place] [facility] FREE T4 2022-11-07 19:51:00 Chuy Castillo [facility] THYROID STIMULATING 2022-11-07 19:51:00 Chuy Castillo [facility] HORMONE [facility] COMP. METABOLIC PANEL 2022-11-07 19:51:00 Chuy Castillo [facility] ([id number]) [facility] LIPID PANEL ([id number])(TOTAL 2022-11-07 19:51:00 [facility] CHOLESTEROL, [facility] TRIGLYCERIDES, HDL) CBC WITH DIFF 2022-11-07 19:51:00 Chuy Castillo [facility] GLYCOSYLATED HEMOGLOBIN 2022-11-07 19:51:00 Chuy Castillo [facility] (A1C) [facility] FREE T3 2022-11-07 19:51:00 Chuy Castillo [facility] CBCA W/PLT & AUTO 2019-07-22 00:00:00 [facility] COMPREHENSIVE METABOLIC 2019-07-22 00:00:[address] [facility] [place] [place] CARDIAC MARKERS PANEL 2019-07-22 00:00:00 [facility] BNP RAPID 2019-07-22 00:00:00 [facility] TROPONIN I 2019-07-22 00:00:00 [facility] CHEST 1 VIEW (AP) 2019-07-22 00:00:00 [facility] CT ANGIOGRAM CHEST 2019-07-22 00:00:00 [facility] LUMBAR 2 OR 3 VIEWS 2019-07-09 00:00:00 [facility] CBCA W/PLT & AUTO 2018-07-05 00:00:00 [facility] COMPREHENSIVE METABOLIC 2018-07-05 00:00:[address] [facility] [place] [place] PROTIME 2018-07-05 00:00:00 [facility] PTT 2018-07-05 00:00:00 [facility] CARDIAC MARKERS PANEL 2018-07-05 00:00:00 [facility] () [facility] BNP RAPID 2018-07-05 00:00:00 [facility] ROUTINE URINALYSIS 2018-07-05 00:00:00 [facility] MAGNESIUM 2018-07-05 00:00:00 [facility] CHEST 1 VIEW (AP) 2018-07-05 00:00:00 [facility] Encounters Start End Encounter Admission Attending Care Care Encounter Source Date/Time Date/Time Type Type Clinicians Facility Department ID 2022-06-12 Outpatient [facility] [id number] [place] 09:31:04 [id number] [facility] 2022-05-28 Outpatient [facility] [id number] [place] 08:55:46 [id number] [facility] 2022-05-25 Outpatient [facility] [id number] [place] 12:54:23 [id number] [facility] 2022-05-22 Outpatient [facility] [id number] [place] 10:23:11 [id number] [facility] 2022-05-11 Outpatient [facility] [id number] [place] 08:32:39 [id number] [facility] 2022-04-20 Outpatient [facility] [id number] [place] 11:02:48 [id number] [facility] 2022-04-19 Outpatient [facility] [id number] [place] 13:23:11 [id number] [facility] 2022-04-13 Outpatient [facility] [id number] [place] 16:19:02 [id number] [facility] 2022-04-10 Outpatient [facility] [id number] [place] 13:04:37 [id number] [facility] 2019-07-22 Inpatient [facility] [id number] [facility] 08:32:00 09 [facility] 2023-04-08 2023-04-08 [facility] 1.2.840.114 [id number] Univers 00:00:00 00:00:00 Chuy LUBIN 350.1.13.10 i ty of [facility] 4.2.[place].2.[place] [id number] [facility] 044 [facility] 2023-03-28 2023-03-28 Refill [facility] 1.2.840.114 [id number] Univers 00:00:00 00:00:00 Chuy LUBIN 350.1.13.10 i ty [place] [id number] [address] 2023-03-25 2023-03-25 Refill [facility] 1.2.840.114 [id number] Univers 00:00:00 00:00:00 [employer] 350.1.13.10 it y of [place] 4.2.7.2.686 Moises as KAEL?BLEA [id number] [address] OFFICE [facility] 2023-03-19 2023-03-19 Outpatient R [facility] [id number] Univers 10:16:12 23:59:00 ity of [facility] 2023-03-19 2023-03-19 [facility] 1.2.840.114 [id number] Univers 10:16:12 23:59:00 Encounter Salma LUBIN 350.1.13.10 ity of [place]2.7.2.[place] [id number] [address] 2023-02-18 2023-02-18 Telephone [facility] 1.2.163.015 [id number] Univers 00:00:00 00:00:00 [employer] 350.1.13.10 it y of [facility] 4.2.7.2.686 Moises as KAEL?BLEA [id number] [address] MEDICAL OFFICE [facility] 2023-02-01 2023-02-01 Orders Doctor ELEONORA 1.2.840.114 [id number] Univers 00:00:00 00:00:00 Only Unassigned, AJ 350.1.13.10 ity of [place] [facility] 4.2.7.2.686 Moises as [id number] [facility] 009 Secretary 2023-01-28 2023-01-28 Telephone [facility] 1.2.840.114 [id number] Univers 00:00:00 00:00:00 , River LUBIN 350.1.13.10 i ty [place] [id number] [address] 2023-01-25 2023-01-25 Outpatient [facility] [id number] Univers 13:00:00 13:51:[address] [facility] 2023-01-25 2023-01-25 Office [facility] 1.2.840.114 [id number] Univers 13:00:00 13:51:43 Visit [employer] 350.1.13.10 it y of [place] 4.2.7.2.686 Moises as KAEL?BLEA [id number] [address] OFFICE [facility] 2023-01-25 2023-01-25 Telephone [facility] 1.2.440.013 [id number] Univers 00:00:00 00:00:00 [employer] 350.1.13.10 it y of [place] 4.2.7.2.686 Moises as KAEL?BLEA [id number] [address] OFFICE [facility] 2023-01-16 2023-01-16 Patient Doctor ELEONORA 1.2.840.114 [id number] Univers 00:00:00 00:00:00 Secure Msg Unassigned, AJ 350.1.13.10 ity of [place] [facility] 4.2.7.2.686 Moises as [id number] [facility] 019 Secretary 2023-01-15 2023-01-15 Outpatient R [facility] [id number] Univers 15:40:00 16:51:06 OBI-RIVER ESCAMILLA ity [facility] 2023-01-15 2023-01-15 Office [facility] 1.2.840.[id number] [facility] 15:40:00 16:51:06 Visit , River [place] 350.1.13.10 i ty of [facility] 4.2.7.2.[place] [id number] [address] 2023-01-11 2023-01-11 Telephone [facility] 1.2.840.114 [id number] Univers 00:00:00 00:00:00 , [facility] 350.1.13.10 i ty [place].2.7.2.[place] [id number] [place] [address]fredo[address] 2023-01-03 2023-01-03 Outpatient R JAMESDmitry-GERALDNIE [facility] [id number] [facility] 14:20:00 15:14:02 OBI-RIVER ESCAMILLA [facility] 2023-01-03 2023-01-03 Office [facility] 1.2.840.[id number] [facility] 14:20:00 15:14:02 Visit , [facility] 350.1.13.10 i ty of [place].2.7.2.[place] [id number] [address] 2022-12-24 2022-12-24 Outpatient [facility] [id number] Univers 13:30:00 14:26:38 [facility] 2022-12-24 2022-12-24 Office [facility] 1.2.840.114 [id number] Univers 13:30:00 14:26:38 Visit [facility] 350.1.13.10 it y of [facility] 4.2.7.2.686 Moises as KAEL?BLEA [id number] [place] alfredowi GRANT [address] [place] [address] 2022-12-21 2022-12-21 Telephone [facility] 1.2.840.114 [id number] Univers 00:00:00 00:00:00 Chuy LUBIN 350.1.13.10 i ty [facility] 4.2.7.2.686 [facility] [id number] Va dical NAL 044 [facility] 2022-12-18 2022-12-18 Outpatient R CJEDMONDLIATMARKOMARIET[facility] [id number] Univers 11:15:58 23:59:[address] [facility] 2022-12-18 2022-12-18 [facility] 1.2.840.114 [id number] Univers 11:00:00 23:59:00 Encounter Chuy LUBIN 350.1.13.10 ity [facility] 4.2.7.2.686 [place] [id number] [facility] 806 Secretary 2022-12-13 2022-12-13 Outpatient [facility] [id number] Univers 13:45:00 13:45:[address] [facility] 2022-12-10 2022-12-10 Outpatient R CJEDMONDRODGERMARIET[facility] [id number] Univers 13:00:00 13:00:[address] [facility] 2022-12-10 2022-12-10 Patient Doctor ELEONORA 1.2.840.114 [id number] Univers 00:00:00 00:00:00 Secure Msg Unassigned, AJ 350.1.13.10 ity of [place] [facility] 4.2.7.2.686 Moises as [id number] [address] 2022-12-10 2022-12-10 Patient Doctor ELEONORA 1.2.840.114 [id number] Univers 00:00:00 00:00:00 Secure Msg Unassigned, AJ 350.1.13.10 ity of [place] [facility] 4.2.7.2.686 Moises as [id number] [address] 2022-12-03 2022-12-03 Outpatient [facility] [id number] Univers 00:00:00 00:00:[address] [facility] 2022-11-30 2022-11-30 Patient Doctor ELEONORA 1.2.840.114 [id number] Univers 00:00:00 00:00:00 Secure Msg Unassigned, AJ 350.1.13.10 [facility] 4.2.7.2.686 Moises as [id number] [facility] 019 Secretary 2022-11-22 2022-11-22 [facility] 1.2.840.114 [id number] Univers 17:20:00 18:50:00 , Taylor TRISTIAN 350.1.13.10 i ty of [place].2.7.2.[place] [phone] [facility] 084 Secretary 2022-11-22 2022-11-22 Outpatient R [facility] [id number] Univers 16:00:00 17:06:[address] [facility] 2022-11-22 2022-11-22 Outpatient R [facility] [id number] Univers 16:00:00 17:06:[address] [facility] 2022-11-22 2022-11-22 Office [facility] 1.2.840.114 [id number] Univers 16:00:00 17:06:38 Visit Chuy LUBIN 350.1.13.10 i ty of [place]2.7.2.[place] [id number] Va dical NAL [address] [place] [address] 2022-11-21 2022-11-21 Telephone [facility] 1.2.840.114 [id number] Univers 00:00:00 00:00:00 Chuy LUBIN 350.1.13.10 i ty of [place] 4[place]2.7.2.[place] [phone] Va dical NAL [address] [place] [address] 2022-11-07 2022-11-07 [employer] Technician 2, Adc Lab [facility] 1.2.840.114 [id number] Univers 15:15:00 15:30:00 Visit Chuy Castillo 350.1.13.10 ity of [facility] 4.2.7.2.686 [place] [id number] [place] dical [facility] 353 [facility] 2022-11-07 2022-11-07 Outpatient R [facility] [id number] Univers 13:20:00 14:09:[address] [facility] 2022-11-07 2022-11-07 Office [facility] 1.2.840.114 [id number] Univers 13:20:00 14:09:34 Visit Chuy LUBIN 350.1.13.10 i ty of [place] 4.2.7.2.[place] [id number] Va dical NAL 044 [facility] 2022-10-31 2022-10-31 Refill [facility] 1.2.840.114 [id number] Univers 00:00:00 00:00:00 Chuy LUBIN 350.1.13.10 i ty of [place] 4[place]2.7.2.[place] [id number] Va dical NAL 044 [facility] 2022-10-25 2022-10-25 [facility] 1.2.840.114 [id number] Univers 00:00:00 00:00:00 Chuy LUBIN 350.1.13.10 i ty of [place] 4.2.7.2.[place] [id number] [place] dic[address] 2022-10-02 2022-10-02 Outpatient Josef [facility] [id number] Univers 13:30:00 13:30:[address] [facility] 2022-09-04 2022-09-04 Outpatient Josef [facility] [id number] Univers 16:00:00 16:00:[address] [facility] 2022 2022 Outpatient Josef [facility] [id number] Univers 15:00:00 15:00:[address] [facility] [address] [facility] 2022-08-27 2022-08-27 Telephone [facility] 1.2.840.114 1 [id number] Univers 00:00:00 00:00:00 Chuy LUBIN 350.1.13.10 i ty of [facility] 4.2.7.2.686 [place] [id number] Va dical NAL [address] [place] [address] 2022-08-06 2022-08-06 Refill [facility] 1.2.840.114 [id number] Univers 00:00:00 00:00:00 Chuy LUBIN 350.1.13.10 i ty of [facility] 4.2.7.2.686 [place] [id number] Va dical NAL [address] [place] [address] 2022-08-06 2022-08-06 Telephone [facility] 1.2.840.114 [id number] Univers 00:00:00 00:00:00 Chuy LUBIN 350.1.13.10 i ty of [place] 4.2.7.2.[place] [id number] [facility] NAL [address] [place] [address] 2022-08-02 2022-08-02 Outpatient Josef [facility] [id number] Univers 12:30:00 12:30:[address] [facility] 2022-07-31 2022-07-31 Telephone [facility] 1.2.840.114 [id number] Univers 00:00:00 00:00:00 Chuy LUBIN 350.1.13.10 i ty of [place] 4[place]2.7.2.[place] [id number] Va dicwi NAL [address] [place] [address] 2022-06-29 2022-06-29 Outpatient Josef [facility] [id number] Univers 10:00:00 10:00:[address] [facility] 2022-06-15 2022-06-15 [facility] 1.2.840.114 [id number] Univers 00:00:00 00:00:00 Chuy LUBIN 350.1.13.10 i ty of [facility] 4.2.7.2.686 [place] [id number] Va dical NAL [address] [place] [address] 2022-06-122022-06-12 Outpatient [facility] [id number] [place] 14:00:00 14:00:00 MCKENZIE wright 2022-05-28 2022-05-28 Outpatient R [facility] [id number] Univers 00:00:00 00:00:[address] [facility] 2022-05-28 2022-05-28 [facility] 1.2.840.114 [id number] Univers 00:00:00 00:00:00 [facility] 350.1.13.10 it y of [place] 4.2.7.2.686 Moises as KAEL?BLEA [id number] [address] OFFICE [facility] 2022-05-25 2022-05-25 Outpatient HEM[place], [facility] CAR [id number] [facility] 12:55:00 17:40:00 JESSE 2022-05-17 2022-05-17 Telephone [facility] 1.2.751.225 [id number] Univers 00:00:00 00:00:00 [facility] 350.1.13.10 ity of [place] 4.2.7.2.686 Moises as KAEL?BLEA [id number] [address] OFFICE [facility] 2022-05-11 2022-05-11 [facility]phone [facility] 1.2.840.114 [id number] Univers 00:00:00 00:00:00 Chuy LUBIN 350.1.13.10 i ty of [facility] 4.2.7.2.686 [place] [id number] [address] 2022-05-09 2022-05-09 Office [facility] 1.2.840.114 [id number] Univers 14:00:00 14:00:00 Visit Chuy LUBIN 350.1.13.10 i ty of [facility] 4.2.7.2.686 [place] [id number] [address] 2022-05-09 2022-05-09 Outpatient R [facility] [id number] Univers 14:00:00 12:15:[address] [facility] 2022-05-09 2022-05-09 Office [facility] 1.2.840.[id number] [facility] 10:20:00 12:15:16 Visit Chuy LUBIN 350.1.13.10 i ty of [place] 4.2.7.2.686 [place] [id number] [address] 2022-05-09 2022-05-09 Telephone [facility] 1.2.840.114 [id number] Univers 00:00:00 00:00:00 Chuy LUBIN 350.1.13.10 i ty of [place] 4.2.7.2.686 [place] [id number] [address] 2022-04-26 2022-04-26 Telephone [facility] 1.2.840.[id number] [facility] 00:00:00 00:00:00 Chuy LUBIN 350.1.13.10 i ty of [place] 4.2.7.2.686 [place] [id number] [address] 2022-04-20 2022-04-20 Office [facility], [facility]TP 6400 1.2.840.114 [id number] [place] 11:00:00 12:00:15 Visit Jesse DICKENS 350.1.13.58 Health 9.2.7.2.686 [id number] 2022-04-17 2022-04-17 Telephone [facility] 1.2.840.114 [id number] Univers 00:00:00 00:00:00 Chuy LUBIN 350.1.13.10 i ty of [facility] 4.2.7.2.686 [place] [id number] [address] 2022-04-11 2022-04-11 [facility] 1.2.840.114 [id number] Univers 00:00:00 00:00:00 Chuy LUBIN 350.1.13.10 i ty of [place] 4.2.7.2.686 [place] [id number] Va malgorzata ARREDONDO [address] [place] [address] 2022-04-11 2022-04-11 Telephone [facility] 1.2.840.114 [id number] Univers 00:00:00 00:00:00 Chuy [facility] 350.1.13.10 it y of [facility] 4.2.7.2.686 Moises as KAEL?BLEA [id number] [place] alfredowi GRANT [address] [place] [address] OFFICE [facility] 2022-03-28 2022-03-28 Telephone [facility] 1.2.840.114 [id number] Univers 00:00:00 00:00:00 Chuy LUBIN 350.1.13.10 i ty of [place] 4.2.7.2.686 [place] [id number] [place] alfredowi MARIA ELENA [address] [place] [address] 2022-03-27 2022-03-27 Office [facility] 1.2.840.114 [id number] Univers 10:00:00 12:21:36 Visit Chuy LUBIN 350.1.13.10 i ty of [place] 4.2.7.2.686 [place] [id number] [address] 2022-03-27 2022-03-27 Outpatient R [facility] [id number] Univers 10:00:00 12:21:[address] [facility] 2022-03-27 2022-03-27 Telephone [facility] 1.2.840.114 [id number] Univers 00:00:00 00:00:00 Chuy LUBIN 350.1.13.10 i ty of [place] 4.2.7.2.[place] [id number] [place] alfredo[address] 2022-01-22 2022-01-22 Outpatient FILOMENA 2.16.840.1. 1 [id number] 16:38:00 16:38:00 Encounter Nilesh 604746.4.6. AYE [id number] [facility] 2022-01-22 2022-01-22 Outpatient 3 Sydney ORLANDO [id number] [place] 11:38:00 11:38:00 YAO 0815 lle Memoria l 2022-01-21 2022-01-21 Emergency FILOMENA 2.16.840.1. 10 [id number] 18:39:00 21:19:00 Department E 252369.4.6. Patient [facility] [id number] Visit HOSPITAL 2022-01-21 2022-01-21 [facility] [id number] [place] 13:39:00 16:19:00 KOLE 0814 [facility] 2021-12-23 2021-12-23 Emergency ALEXANDRAFLASH [id number]. 10 [id number] 20:33:00 22:30:00 Department E [id number]. Patient [facility] [id number] Visit HOSPITAL 2021-12-23 2021-12-[address] [facility] [id number] [place] 15:33:00 17:30:00 KOLE 0716 [facility] 2021-07-12 2021-07-12 [id number] [place] 05:56:00 11:50:00 Department LLE Patient [facility] Visit L [facility] L 2021-07-11 2021-07-12 [facility] [id number] [place] 23:56:00 05:50:00 OMAR 0201 [facility] 2021-06-22 2021-06-22 Outpatient HVoDSHAUN KAELYNoDOCS [id number] [place] 15:54:00 15:54:00 Encounter [facility] 2021-06-22 2021-06-22 Outpatient 3 [place] [facility] [id number] [place] 09:54:00 09:54:00 JJ 0113 [facility] 2021-06-01 2021-06-01 Outpatient HVLMoDSHAUN KAELYNoDOCS [id number] [place] 17:07:00 17:07:00 Encounter [facility] 2021-06-01 2021-06-01 Outpatient 3 [place] [facility] 145 61 [place] 11:07:00 11:07:00 JJ 1223 [facility] 2021-03-19 2021-03-19 Emergency 1 DAJUAN [facility] ERS [id number] [place] 17:00:00 22:14:00 OMAR 1010 [facility] 2020-12-28 2020-12-28 Outpatient 3 DARION, [facility] MOP [id number] [place] 13:00:00 13:00:00 YAO 0721 [facility] 2019-07-22 2019-07-22 Departed [facility] [id number] [place] 01:36:00 07:37:00 [facility] 55 [facility] 2019-07-09 2019-07-09 Registered [facility] H000 [id number] [place] 10:27:00 10:27:00 Referral [facility] 00 [facility] 2018-07-05 2018-07-05 Departed Kyle, [facility] [id number] 3 [place] 00:20:00 04:45:00 Emergency Mann Vazquez 56 l [facility] Results Test Description Test Time Test Comments Results Result Comments Source BASIC METABOLIC PANEL 2019-07-23 08:11:00 Test Item Value Reference Range Interpretation Comme nts SODIUM (test code = NA) 139.0 mmol/L 133-144 N POTASSIUM (test code = K) 3.5 mmol/L 3.5-5.1 N CHLORIDE (test code = CL) 108 mmol/L 95-105 H CARBON DIOXIDE (test code 28 mmol/L 21-32 N = CO2) ANION GAP (test code = 3.0 GAP calc 4.0-15.0 L GAP) GLUCOSE (test code = GLU) 93 MG/DL 70-110 N BLOOD UREA NITROGEN (test 16 MG/DL 7-18 N code = BUN) CREATININE (test code = 0.99 MG/DL 0.55-1.30 N Resu lts may be depressed CREAT) if patient is takingN-Acetylc ysteine (NAC) and Metam izole (Dipyrone). CALCIUM (test code = CA) 8.5 MG/DL 8.5-10.1 N INDEX HEMOLYSIS (test code 1 NORMAL <10 MG 1 NORMAL = HEMINDEX) Index/DL INDEX ICTERIC (test code = 1 NORMAL <2 MG 1 NORMAL ICTINDEX) Index/DL INDEX LIPEMIA (test code = 1 NORMAL <50 MG 1 NORMAL LIPINDEX) Index/DL LIPID PROFILE (CORONARY RISK)2019-07-23 08:11:00 Test Item Value Reference Range Interpretation Comments TRIGLYCERIDES (test 137 MG/DL 0-150 N Results may be code = TRIG) depressed if rolando prieto is takingN-Acetylc ystei ne (NAC) and Metamizole (Dipyrone). CHOLESTEROL (test code 131 MG/DL 133-200 L = CHOL) CHOLESTEROL/HDL RATIO 4.85 RATIO >0 REFER ENCE RANGE: (test code = CHOLHDL) MALE F EMALE 1/2 AVG RISK 3.43 3.27 AVG RISK 4.97 4.44 2X AVG RISK 9.55 7 .05 3X AVG RISK 23. 39 11.04 HDL CHOLESTEROL (test 27 MG/DL 40-59 L Result s maybe code = HDL) depressed if rolando prieto is taking Metamizole(Dipy juanito) . NON-HDL CHOLESTEROL 104 mg/dL <130 Patients with CHD or (test code = NHDL) CHD risk LDL: <70 mg/dL nonHDL: < 100 mg/dLPatients w ith 2+ risk factors LDL: <130 mg/dL nonH DL: <160 mg/dLPatie nts with 0-1 risk factors LDL: <1 60 mg/dL nonHDL: < 190 mg/dL LIPOPROTEIN LDL (test 77 MG/DL 0-129 N code = LDL) LDL/HDL (test code = 2.85 Ratio 1.48-3.22 Avg N LDL/HD L RISK LDL/HDL) ASSESSMENT1.47 One-half averag e3.22 Average5.03 Two times average6. [address] [id number] 08:11:00 Test Item Value Reference Range Interpretation Comments MAGNESIUM (test code = MAG) 2.1 MG/DL 1.6-2.6 N BASIC METABOLIC [id number] 08:00:00 Test Item Value Reference Range Interpretation Comments SODIUM (test code = NA) 139.0 mmol/L 133-144 N POTASSIUM (test code = K) 3.5 mmol/L 3.5-5.1 N CHLORIDE (test code = CL) 108 mmol/L 95-105 H CARBON DIOXIDE (test code mmol/L 21-32 = CO2) ANION GAP (test code = GAP calc 4.0-15.0 GAP) GLUCOSE (test code = GLU) MG/DL 70-110 BLOOD UREA NITROGEN (test MG/DL 7-18 code = BUN) CREATININE (test code = MG/DL 0.55-1.30 CREAT) CALCIUM (test code = CA) MG/DL 8.5-10.1 INDEX HEMOLYSIS (test 1 NORMAL <10 MG 1 NORMAL code = HEMINDEX) Index/DL INDEX ICTERIC (test code 1 NORMAL <2 MG 1 NORMAL = ICTINDEX) Index/DL INDEX LIPEMIA (test code 1 NORMAL <50 MG 1 NORMAL = LIPINDEX) Index/DL LIPID PROFILE (CORONARY RISK)2019-07-23 08:00:00 Test Item Value Reference Range Interpretation Comments TRIGLYCERIDES (test code = TRIG) MG/DL 0-150 CHOLESTEROL (test code = CHOL) MG/DL 133-200 CHOLESTEROL/HDL RATIO (test code = RATIO >0 CHOLHDL) HDL CHOLESTEROL (test code = HDL) MG/DL 40-59 NON-HDL CHOLESTEROL (test code = NHDL) mg/dL <130 LIPOPROTEIN LDL (test code = LDL) MG/DL 0-129 LDL/HDL (test code = LDL/HDL) Ratio 1.48-3.22 Avg [id number] 08:00:00 Test Item Value Reference Range Interpretation Comments MAGNESIUM (test code = MAG) MG/DL 1.6-2.6 CBC W/AUTO [id number] 07:28:00 Test Item Value Reference Range Interpretation Comments WHITE BLOOD CELL (test code = 7.4 K/mm3 4.1-12.1 N WBC) RED BLOOD CELL (test code = RBC) 3.20 M/mm3 3.8-5.5 L HEMOGLOBIN (test code = HGB) 9.8 G/DL 10.6-15.8 L HEMATOCRIT (test code = HCT) 29.5 % 31.8-47.4 L MEAN CELL VOLUME (test code = 92.2 fL 80.1-101.1 N MCV) MEAN CELL HGB (test code = MCH) 30.6 pg 25.3-35.3 N MEAN CELL HGB CONCETRATION (test 33.2 G/DL 32.7-35.1 N code = MCHC) RED CELL DISTRIBUTION WIDTH 12.9 % 12.2-16.4 N (test code = RDW) RED CELL DISTRIBUTION WIDTH 43.2 fL 36.4-46.3 N (test code = RDW-SD) PLATELET COUNT (test code = PLT) 189 K/mm3 155-337 N MEAN PLATELET VOLUME (test code 9.9 fL 6.8-11.2 N = MPV) GRANULOCYTE % (test code = GR%) 46.6 % 37.8-82.6 N IMMATURE GRANULOCYTE % (test 0.4 % 0.0-2.0 N code = IG%) LYMPHOCYTE % (test code = LY%) 38.9 % 14.1-45.4 N MONOCYTE % (test code = MO%) 9.8 % 2.5-11.7 N EOSINOPHIL % (test code = EO%) 3.6 % 0.0-6.2 N BASOPHIL % (test code = BA%) 0.7 % 0.0-2.1 N NUCLEATED RBC % (test code = 0.0 /100WBC% 0.0-1.0 N NRBC%) GRANULOCYTE # (test code = GR#) 3.46 k/mm3 2.0-13.7 N IMMATURE GRANULOCYTE # (test 0.03 K/mm3 0.00-0.03 N code = IG#) LYMPHOCYTE # (test code = LY#) 2.89 K/mm3 0.6-3.8 N MONOCYTE # (test code = MO#) 0.73 K/mm3 0.11-0.59 H EOSINOPHIL # (test code = EO#) 0.27 K/mm3 0.0-0.4 N BASOPHIL # (test code = BA#) 0.05 K/mm3 0.0-0.1 N NUCLEATED RBC # (test code = 0.00 K/mm3 0.0-0.05 N NRBC#) [id number] 15:33:00 Test Item Value Reference Range Interpretation Comments TROPONIN-I 0.135 NG/ML 0.000-0.045 HH Critical values after the (test code = first occurrenc e are excluded TROPI) fromcall docume ntation requirements fo r this analyte due to thepatie nt diagnosis or therapy prot ocols.An elevated tropon in value alone is not sufficie nt todiagnose a myocardial in farction. Rather, the pat ient'sclinical presentation (h istory, physical exam) and ECGshould be used in conj unction with troponin in the diagnostic evaluation of s uspected myocardial infa rction. Aserial samplin g protocol is recommended to facilitate theidentificati on of temporal changes in trop onin levelscharacter istic of NV. B-TYPE NATRIURETIC [id number] 14:17:00 Test Item Value Reference Range Interpretation Comments B-TYPE NATRIURETIC PEPTIDE (test 812.07 PG/ML 0.00-100.00 H code = BNP) [id number] 12:15:00 Test Item Value Reference Range Interpretation Comments TROPONIN-I 0.146 NG/ML 0.000-0.045 HH Critical values after the (test code = first occurrenc e are excluded TROPI) fromcall docume ntation requirements fo r this analyte due to thepatie nt diagnosis or therapy prot ocols.An elevated tropon in value alone is not sufficie nt todiagnose a myocardial in farction. Rather, the pat ient'sclinical presentation (h istory, physical exam) and ECGshould be used in conj unction with troponin in the diagnostic evaluation of s uspected myocardial infa rction. Aserial samplin g protocol is recommended to facilitate theidentificati on of temporal changes in trop onin levelscharacter istic of NV. EMERGENCY ROOM [id number] 11:32:00 Test Item Value Reference Range Interpretation Comments DIAGNOSIS (test code = SPECIMENS RCVED RECEIVED DIAG) SPECIMEN BASIC METABOLIC [id number] 09:13:00 Test Item Value Reference Range Interpretation Comments SODIUM (test code = 140.0 mmol/L 133-144 N NA) POTASSIUM (test code 4.1 mmol/L 3.5-5.1 N = K) CHLORIDE (test code 108 mmol/L 95-105 H = CL) CARBON DIOXIDE (test 28 mmol/L 21-32 N code = CO2) ANION GAP (test code 4.0 GAP calc 4.0-15.0 N = GAP) GLUCOSE (test code = 114 MG/DL 70-110 H GLU) BLOOD UREA NITROGEN 16 MG/DL 7-18 N (test code = BUN) CREATININE (test 0.99 MG/DL 0.55-1.30 N Results may be code = CREAT) depressed if patient is takingN-Acetylc yste ine (NAC) and Metamizole (Dipyrone). CALCIUM (test code = 9.2 MG/DL 8.5-10.1 N CA) INDEX HEMOLYSIS 1 NORMAL <10 MG 1 NORMAL (test code = Index/DL HEMINDEX) INDEX ICTERIC (test 1 NORMAL <2 MG 1 NORMAL code = ICTINDEX) Index/DL INDEX LIPEMIA (test 1 NORMAL <50 MG 1 NORMAL code = LIPINDEX) Index/DL [id number] 09:13:00 Test Item Value Reference Range Interpretation Comments TROPONIN-I 0.164 NG/ML 0.000-0.045 HH ON 07/22/19 AT 0913, (test code = B.LAB.EJK WAGONER D TO NAHUM HEATHERDmitry) BARRIE. The repo rt was confirmed by re ad back protocols Y,N: YES. Critical values after th e first occurrence are excluded.An elevated tropon in value alone is not sufficie nt todiagnose a myocardial in farction. Rather, the pat ient'sclinical presentation (h istory, physical exam) and ECGshould be used in conj unction with troponin in the diagnostic evaluation of s uspected myocardial infa rction. Aserial samplin g protocol is recommended to facilitate theidentificati on of temporal changes in trop onin levelscharacter istic of NV. BASIC METABOLIC [id number] 09:03:00 Test Item Value Reference Range Interpretation Comments SODIUM (test code = 140.0 mmol/L 133-144 N NA) POTASSIUM (test code 4.1 mmol/L 3.5-5.1 N = K) CHLORIDE (test code 108 mmol/L 95-105 H = CL) CARBON DIOXIDE (test 28 mmol/L 21-32 N code = CO2) ANION GAP (test code 4.0 GAP calc 4.0-15.0 N = GAP) GLUCOSE (test code = 114 MG/DL 70-110 H GLU) BLOOD UREA NITROGEN 16 MG/DL 7-18 N (test code = BUN) CREATININE (test 0.99 MG/DL 0.55-1.30 N Results may be code = CREAT) depressed if patient is takingN-Acetylc yste ine (NAC) and Metamizole (Dipyrone). CALCIUM (test code = 9.2 MG/DL 8.5-10.1 N CA) INDEX HEMOLYSIS 1 NORMAL <10 MG 1 NORMAL (test code = Index/DL HEMINDEX) INDEX ICTERIC (test 1 NORMAL <2 MG 1 NORMAL code = ICTINDEX) Index/DL INDEX LIPEMIA (test 1 NORMAL <50 MG 1 NORMAL code = LIPINDEX) Index/DL [id number] 09:03:00 Test Item Value Reference Range Interpretation Comments TROPONIN-I (test code = TROPI) NG/ML 0.000-0.045 - XR CHEST 1 [id number] 08:54:00 FAX: Latrell Bob MD [phone] [place]: St: PRE Patient Name: JJ MUNIZ Unit No: [id number] EXAMS: CPT CODE: [id number] XR CHEST 1 V 91821 LOCATION: T18 EXAM: CHEST 1 VIEW INDICATION: , Chest pain COMPARISON: None. TECHNIQUE: AP chest radiograph. FINDINGS: Left AICD in place. No consolidation or pleural effusion is seen. There is asymmetric focal density in the right lung apex measuring 2.1 cm. This may be secondary to bony overlap and soft tissue shadowing. However the asymmetry is concerning for nodule. Heart isnormal in size. Patient status post median sternotomy. Bones and peripheral soft tissues are unremarkable. IMPRESSION: Right apical nodule measuring 2.[address] Lungs are otherwise clear. at 0854 Reported and signed by: Kurt Fernández MD CC: Latrell Bob MD Dictated Date/Time: 07/22/2019 (2175)Technologist: JOSE PURCELL Transcribed Date/Time: 07/22/2019 (2713) By: [email or web address] Orig Print D/T: S: 07/22/2019 (0857) PAWEL Hawthorne NAME: [id number] PHYS: Latrell Barajas [place], [place] [address] : 1935 AGE: 83 SEX: F LOC: B.ERS PHONE #: [phone] EXAM DATE: 07/22/2019 STATUS: PRE ER FAX #: [phone] RAD NO: DC Dt: PAGE 1 Signed ReportTROPONIN I RAPID 2019-07-22 08:53:00 Test Item Value Reference Range Interpretation Comments TROPONIN I RAPID 0.10 NG/ML 0.00-0.07 HH LOW/HIGH AL ERT VALUE - (test code = ACTION REQUIRED An elevated TROPIRAP) troponin value alone is not sufficient todi agnose a myocardial infa rction. Rather, the patient'sclinic al presentation (h istory, physical exam) and ECGshould be us ed in conjunction wit h troponin in thediagnosti c evaluation of suspected my ocardial infarction. Ase rial sampling protoc ol is recommended to facilitate theidentificati on of temporal change s in troponin levelscharacter istic of NV. CBC W/O [id number] 08:47:00 Test Item Value Reference Range Interpretation Comments WHITE BLOOD CELL (test code = WBC) 9.4 K/mm3 4.1-12.1 N RED BLOOD CELL (test code = RBC) 3.70 M/mm3 3.8-5.5 L HEMOGLOBIN (test code = HGB) 11.2 G/DL 10.6-15.8 N HEMATOCRIT (test code = HCT) 34.0 % 31.8-47.4 N MEAN CELL VOLUME (test code = MCV) 91.9 fL 80.1-101.1 N MEAN CELL HGB (test code = MCH) 30.3 pg 25.3-35.3 N MEAN CELL HGB CONCETRATION (test 32.9 G/DL 32.7-35.1 N code = MCHC) RED CELL DISTRIBUTION WIDTH (test 12.6 % 12.2-16.4 N code = RDW) PLATELET COUNT (test code = PLT) 213 K/mm3 155-337 N MEAN PLATELET VOLUME (test code = 9.5 fL 6.8-11.2 N MPV) Troponin [id number] 04:00:00 Test Item Value Reference Range Interpretation Comments Troponin I (test code = 03873-3) 0.05 0.00-0.03 Troponin I-Interpretation Reference : <0.03 ng/mL NEGATIVE 0.04 - 0.49 ng/mL EQUIVOCAL = OR >0.5 ng/mL CONSISTENT WITH ACUTE MYOCARDIAL INJURY 98% of confirmed AMI patients will have at least one valuein a set or serial specimens >0.50 ng/ml. 99% of normals are between 0.0 - 0.10 ng/ml. Serial samples on a patient that are all <0.10 ng/mleffectively rules out AMI. Persistently increasedtroponin I values that are above theupper limit of normal but below the threshold for AMIindicate mycardial injury but not necessarily an ischemicmechanism of injury. Troponin Important Points 1. Troponin is specific for myocardial injury but not forAMI. Elevated troponin levels above the upper limit ofnormal but below the AMI cutoff may be present in cardiacinjury other then AMI and represent some degree of risk. 2. Elevated troponin levels inconsistent with patienthistory or clinical condition should be considered a sign toinvestigate for other cardiac conditions. 3. Serial sampling is critical for accurate diagnosis.[facility] HospitalWhite Blood [id number] 02:15:00 Test Item Value Reference Range Interpretation Comments White Blood Count (test code = 6690-2) 14.1 4.0-11.6 [facility] HospitalRed Blood [id number] 02:15:00 Test Item Value Reference Range Interpretation Comments Red Blood Count (test code = 789-8) 4.06 3.51-5.34 [facility] HospitalHemoglobin2020-02-12 02:15:00 Test Item Value Reference Range Interpretation Comments Hemoglobin (test code = 718-7) 12.6 10.9-15.9 [facility] HospitalHematocrit2020-02-12 02:15:00 Test Item Value Reference Range Interpretation Comments Hematocrit (test code = 08419-6) 37.1 32.8-47.[address] [facility] Corpuscular [id number] 02:15:00 Test Item Value Reference Range Interpretation Comments Mean Corpuscular Volume (test code = 91.3 80.3-100.6 53920-3) [facility] Corpuscular [id number] 02:15:00 Test Item Value Reference Range Interpretation Comments Mean Corpuscular Hemoglobin (test code 30.9 26.4-34.5 = 66391-3) [facility] Corpuscular Hgb Concent [id number] 02:15:00 Test Item Value Reference Range Interpretation Comments Mean Corpuscular Hgb Concent Diff (test 33.9 32.0-36.0 code = 58511-1) [facility] HospitalRed Cell Distribution [id number] 02:15:00 Test Item Value Reference Range Interpretation Comments Red Cell Distribution Width (test code 13.2 11.6-16.3 = 58123-2) [facility] HospitalPlatelet [id number] 02:15:00 Test Item Value Reference Range Interpretation Comments Platelet Count (test code = 777-3) 230 155-[address] [facility] Platelet [id number] 02:15:00 Test Item Value Reference Range Interpretation Comments Mean Platelet Volume (test code = 8.1 6.7-10.5 28840-7) [facility] HospitalGranulocytes (%)2019-07-22 02:15:00 Test Item Value Reference Range Interpretation Comments Granulocytes (%) (test code = 15586-3) 75.8 40.9-78.1 [facility] HospitalLymphocytes %2019-07-22 02:15:00 Test Item Value Reference Range Interpretation Comments Lymphocytes % (test code = 736-9) 14.9 13.7-46.9 [facility] HospitalMonocytes %2019-07-22 02:15:00 Test Item Value Reference Range Interpretation Comments Monocytes % (test code = 5905-5) 7.4 4.4-12.8 [facility] HospitalEosinophils %2019-07-22 02:15:00 Test Item Value Reference Range Interpretation Comments Eosinophils % (test code = 713-8) 1.6 0.6-7.5 [facility] HospitalBasophils %2019-07-22 02:15:00 Test Item Value Reference Range Interpretation Comments Basophils % (test code = 65230-4) 0.3 0.0-2.0 [facility] HospitalGranulocytes #2019-07-22 02:15:00 Test Item Value Reference Range Interpretation Comments Granulocytes # (test code = 74978-7) 10.7 1.6-9.1 [facility] HospitalLymphocytes #2019-07-22 02:15:00 Test Item Value Reference Range Interpretation Comments Lymphocytes # (test code = 31575-2) 2.1 0.6-5.4 [facility] HospitalMonocytes #2019-07-22 02:15:00 Test Item Value Reference Range Interpretation Comments Monocytes # (test code = 742-7) 1.1 0.2-1.5 [facility] HospitalEosinophils #2019-07-22 02:15:00 Test Item Value Reference Range Interpretation Comments Eosinophils # (test code = 711-2) 0.2 0.0-0.9 [facility] HospitalBasophils #2019-07-22 02:15:00 Test Item Value Reference Range Interpretation Comments Basophils # (test code = 54908-3) 0.0 0.0-0.2 [facility] HospitalManual [id number] 02:15:00 Test Item Value Reference Range Interpretation Comments Manual Differential (test code = Manual NO Differential) [facility] Worthodium [id number] 02:15:00 Test Item Value Reference Range Interpretation Comments Sodium Level (test code = 2951-2) 136 135-144 [facility] HospitalPotassium [id number] 02:15:00 Test Item Value Reference Range Interpretation Comments Potassium Level (test code = 2823-3) 3.8 3.5-5.1 [facility] HospitalChloride [id number] 02:15:00 Test Item Value Reference Range Interpretation Comments Chloride Level (test code = 2075-0) 105 101-111 [facility] HospitalCarbon Dioxide [id number] 02:15:00 Test Item Value Reference Range Interpretation Comments Carbon Dioxide Level (test code = 25 22-32 2028-9) [facility] HospitalAnion [id number] 02:15:00 Test Item Value Reference Range Interpretation Comments Anion Gap (test code = 76410-9) 9.8 10-20 [facility] HospitalGlucose [id number] 02:15:00 Test Item Value Reference Range Interpretation Comments Glucose Level (test code = 2345-7) 159 65-99 Prediabetes 100 to 125 mg/dlDiabetes 126mg/dl or higher Prediabetes refers to individuals with plasma glucose levelsintermediate between those considered normal and thoseconsidered diabetic and is also referred to as impairedglucose tolerance (IGT) or impaired fasting glucose (IFG). [facility] HospitalBlood Urea [id number] 02:15:00 Test Item Value Reference Range Interpretation Comments Blood Urea Nitrogen (test code = 02-02 3094-0) [facility] HospitalCreatinine2020-02-12 02:15:00 Test Item Value Reference Range Interpretation Comments Creatinine (test code = 2160-0) 1.1 0.44-1.00 [facility] HospitalEGFR [id number] 02:15:00 Test Item Value Reference Range Interpretation Comments EGFR Note (test code = 00127-4) 63.3 63.8-143.2 eGFR (Estimated Glomerular Filtration Rate) eGFR calculation value obtained using the Enterprise ClinicQuadratic (Q) equation. The reportable reference range isrecommended to be greater than 60 ml/min/1.73m. This is anestimation of the patient's GFR and clinical correlation isrecommended. This eGFR calculation does not account for race. This resultmay differ from other equations available. [facility] HospitalCalcium [id number] 02:15:00 Test Item Value Reference Range Interpretation Comments Calcium Level (test code = 60351-3) 9.0 8.9-10.3 [facility] HospitalAlbumin2020-02-12 02:15:00 Test Item Value Reference Range Interpretation Comments Albumin (test code = 1751-7) 4.2 3.5-5.0 [facility] HospitalTotal [id number] 02:15:00 Test Item Value Reference Range Interpretation Comments Total Bilirubin (test code = 1975-2) 0.2 0.2-1.2 [facility] HospitalAlkaline [id number] 02:15:00 Test Item Value Reference Range Interpretation Comments Alkaline Phosphatase (test code = 70 32-91 6768-6) [facility] HospitalTotal [id number] 02:15:00 Test Item Value Reference Range Interpretation Comments Total Protein (test code = 2885-2) 7.8 6.5-8.1 [facility] HospitalAlanine Aminotransferase (ALT/SGPT)2019-07-22 02:15:00 Test Item Value Reference Range Interpretation Comments Alanine Aminotransferase (ALT/SGPT) 38 7-55 (test code = 1742-6) [facility] HospitalAspartate Amino Transf (AST/SGOT)2019-07-22 02:15:00 Test Item Value Reference Range Interpretation Comments Aspartate Amino Transf (AST/SGOT) (test 43 15-41 code = 1920-8) [facility] HospitalGlobulin2020-02-12 02:15:00 Test Item Value Reference Range Interpretation Comments Globulin (test code = 84296-1) 3.6 2.3-3.5 [facility] HospitalAlbumin/Globulin [id number] 02:15:00 Test Item Value Reference Range Interpretation Comments Albumin/Globulin Ratio (test code = 1.2 1.2-2.2 1759-0) [facility] HospitalCreatine [id number] 02:15:00 Test Item Value Reference Range Interpretation Comments Creatine Kinase (test code = 2157-6) 43 38-234 [facility] HospitalCreatine Kinase [id number] 02:15:00 Test Item Value Reference Range Interpretation Comments Creatine Kinase MB (test code = 1.15 0.6-6.3 00688-1) [facility] HospitalMyoglobin2020-02-12 02:15:00 Test Item Value Reference Range Interpretation Comments Myoglobin (test code = 2639-3) 23 14.3-65.8 [facility] HospitalB-Type Natriuretic [id number] 02:15:00 Test Item Value Reference Range Interpretation Comments B-Type Natriuretic Peptide (test code = 365 0-100 35369-4) [facility] HospitalMagnesium [id number] 02:07:00 Test Item Value Reference Range Interpretation Comments Magnesium Level (test code = 06195-1) 2.0 1.8-2.5 [facility] HospitalCreatine Kinase [id number] 01:47:00 Test Item Value Reference Range Interpretation Comments Creatine Kinase MB (test code = 1.01 0.6-6.3 65397-4) [facility] HospitalTroponin [id number] 01:47:00 Test Item Value Reference Range Interpretation Comments Troponin I (test code = 27785-1) 0.02 0.00-0.03 Troponin I-Interpretation Reference : <0.03 ng/mL NEGATIVE 0.04 - 0.49 ng/mL EQUIVOCAL = OR >0.5 ng/mL CONSISTENT WITH ACUTE MYOCARDIAL INJURY 98% of confirmed AMI patients will have at least one valuein a set or serial specimens >0.50 ng/ml. 99% of normals are between 0.0 - 0.10 ng/ml. Serial samples on a patient that are all <0.10 ng/mleffectively rules out AMI. Persistently increasedtroponin I values that are above theupper limit of normal but below the threshold for AMIindicate mycardial injury but not necessarily an ischemicmechanism of injury. Troponin Important Points 1. Troponin is specific for myocardial injury but not forAMI. Elevated troponin levels above the upper limit ofnormal but below the AMI cutoff may be present in cardiacinjury other then AMI and represent some degree of risk. 2. Elevated troponin levels inconsistent with patienthistory or clinical condition should be considered a sign toinvestigate for other cardiac conditions. 3. Serial sampling is critical for accurate diagnosis.[facility] [id number] 01:47:00 Test Item Value Reference Range Interpretation Comments Myoglobin (test code = 66625-9) 22 14.3-65.8 [facility] HospitalB-Type Natriuretic [id number] 01:43:00 Test Item Value Reference Range Interpretation Comments B-Type Natriuretic Peptide (test code = 427 0-100 H B-Type Natriuretic Peptide) [facility] HospitalUrine [id number] 01:40:00 Test Item Value Reference Range Interpretation Comments Urine RBC (test code = 51924-6) 3-5 0-2 A [facility] [id number] 01:40:00 Test Item Value Reference Range Interpretation Comments Urine WBC (test code = 5821-4) 0-2 0-2 [facility] Epithelial [id number] 01:40:00 Test Item Value Reference Range Interpretation Comments Urine Epithelial Cells (test code = 0-2 0-2 06434-8) [facility] [id number] 01:40:00 Test Item Value Reference Range Interpretation Comments Urine Bacteria (test code = 13123-9) NEGATIVE NEG [facility] HospitalBlood Urea [id number] 01:37:00 Test Item Value Reference Range Interpretation Comments Blood Urea Nitrogen (test code = 22 826 3094-0) [facility] HospitalCreatinine2019-01-26 01:37:00 Test Item Value Reference Range Interpretation Comments Creatinine (test code = 2160-0) 0.9 0.44-1.00 [facility] HospitalEGFR [id number] 01:37:00 Test Item Value Reference Range Interpretation Comments EGFR Note (test code = 53606-7) 77.7 63.8-143.2 eGFR (Estimated Glomerular Filtration Rate) eGFR calculation value obtained using the [facility] EmergencyQuadratic (Q) equation. The reportable reference range isrecommended to be greater than 60 ml/min/1.73m. This is anestimation of the patient's GFR and clinical correlation isrecommended. This eGFR calculation does not account for race. This resultmay differ from other equations available. [facility] 01:37:00 Test Item Value Reference Range Interpretation Comments Albumin (test code = 1751-7) 4.3 3.5-5.0 [facility] [id number] 01:37:00 Test Item Value Reference Range Interpretation Comments Total Bilirubin (test code = 1975-2) 0.2 0.2-1.2 [facility]Alkaline [id number] 01:37:00 Test Item Value Reference Range Interpretation Comments Alkaline Phosphatase (test code = 61 32-91 6768-6) [facility] HospitalTotal [id number] 01:37:00 Test Item Value Reference Range Interpretation Comments Total Protein (test code = 2885-2) 7.7 6.5-8.1 [facility] HospitalAlanine Aminotransferase (ALT/SGPT)2018-07-05 01:37:00 Test Item Value Reference Range Interpretation Comments Alanine Aminotransferase (ALT/SGPT) 39 7-55 (test code = 1742-6) [facility] HospitalAspartate Amino Transf (AST/SGOT)2018-07-05 01:37:00 Test Item Value Reference Range Interpretation Comments Aspartate Amino Transf (AST/SGOT) (test 36 15-41 code = 1920-8) [facility] HospitalGlobulin2019-01-26 01:37:00 Test Item Value Reference Range Interpretation Comments Globulin (test code = 76786-7) 3.4 2.3-3.5 [facility]Albumin/Globulin [id number] 01:37:00 Test Item Value Reference Range Interpretation Comments Albumin/Globulin Ratio (test code = 1.3 1.2-2.2 1759-0) [facility] HospitalCreatine [id number] 01:37:00 Test Item Value Reference Range Interpretation Comments Creatine Kinase (test code = 2157-6) 43 38-234 [facility] [id number] 01:37:00 Test Item Value Reference Range Interpretation Comments Urine Color (test code = 5778-6) YELLOW YELLOW [facility] [id number] 01:37:00 Test Item Value Reference Range Interpretation Comments Urine Appearance (test code = 5767-9) CLEAR CLEAR [facility] [id number] 01:37:00 Test Item Value Reference Range Interpretation Comments Urine Glucose (test code = 5792-7) NEGATIVE NEGATIVE [facility] [id number] 01:37:00 Test Item Value Reference Range Interpretation Comments Urine Bilirubin (test code = 1978-6) NEGATIVE NEGATIVE [facility] [id number] 01:37:00 Test Item Value Reference Range Interpretation Comments Urine Ketones (test code = 5797-6) NEGATIVE NEGATIVE [facility] Specific [id number] 01:37:00 Test Item Value Reference Range Interpretation Comments Urine Specific Torreon (test code = 1.010 1.002-1.030 2965-2) [facility] [id number] 01:37:00 Test Item Value Reference Range Interpretation Comments Urine Blood (test code = 41240-1) SMALL NEGATIVE A [facility] [id number] 01:37:00 Test Item Value Reference Range Interpretation Comments Urine pH (test code = 5803-2) 6.0 4.5-8.0 [facility] [id number] 01:37:00 Test Item Value Reference Range Interpretation Comments Urine Protein (test code = 2888-6) NEGATIVE NEGATIVE [facility] Kertvtsfwwsm6576-94-82 01:37:00 Test Item Value Reference Range Interpretation Comments Urine Urobilinogen (test code = 0.2 >0.2 68942-4) [facility] [id number] 01:37:00 Test Item Value Reference Range Interpretation Comments Urine Nitrite (test code = 5802-4) NEGATIVE NEGATIVE [facility] Leukocyte [id number] 01:37:00 Test Item Value Reference Range Interpretation Comments Urine Leukocyte Esterase (test code NEGATIVE NEGATIVE = 5799-2) [facility] Microscopic [id number] 01:37:00 Test Item Value Reference Range Interpretation Comments Urine Microscopic Indicated (test code YES NO = Urine Microscopic Indicated) [facility] HospitalProthrombin [id number] 01:30:00 Test Item Value Reference Range Interpretation Comments Prothrombin Time (test code = 5964-2) 14.3 10.0-12.9 H [facility] HospitalINR International Normalized [id number] 01:30:00 Test Item Value Reference Range Interpretation Comments INR International Normalized Ratio 1.3 0.91-1.15 H (test code = 6301-6) THE INR IS TO BE USED ONLY FOR MONITORING ORAL ANTICOAGULANTTHERAPY. INDICATION INR VALUE 1. Prophylaxis of venous thrombosis 2.0-3.0 (high-risk surgery) Treatment of venous thrombosis Treatment of PE Prevention of systemic embolism Tissue heart valves AMI (to prevent systemic embolism) Valvular heart disease Atrial fibrillation Bileaflet mechanical valve in aortic position 2. Mechanical prosthetic heart valves (high risk) 2.5-3.5 Thrombosis and Antiphospholipid syndrome Prevention of recurrent [place] Sixth ACCP Consensus Conference on Antithrombotic Therapy,Chest 2001; 119:Supplement 8-21.[facility] HospitalActivated Partial Thromboplast [id number] 01:30:00 Test Item Value Reference Range Interpretation Comments Activated Partial Thromboplast Time 44.3 25.1-36.5 H (test code = 3173-2) [facility] [id number] 01:29:00 Test Item Value Reference Range Interpretation Comments Sodium Level (test code = 2951-2) 139 135-144 [facility] HospitalPotassium [id number] 01:29:00 Test Item Value Reference Range Interpretation Comments Potassium Level (test code = 2823-3) 3.1 3.5-5.1 L [facility] HospitalChloride [id number] 01:29:00 Test Item Value Reference Range Interpretation Comments Chloride Level (test code = 2075-0) 104 101-111 [facility] HospitalCarbon Dioxide [id number] 01:29:00 Test Item Value Reference Range Interpretation Comments Carbon Dioxide Level (test code = 29 22-32 8-9) [facility] HospitalAnion [id number] 01:29:00 Test Item Value Reference Range Interpretation Comments Anion Gap (test code = 35889-1) 9.1 10-20 L [facility] HospitalGlucose [id number] 01:29:00 Test Item Value Reference Range Interpretation Comments Glucose Level (test code = 2345-7) 117 65-99 H Prediabetes 100 to 125 mg/dlDiabetes 126mg/dl or higher Prediabetes refers to individuals with plasma glucose levelsintermediate between those considered normal and thoseconsidered diabetic and is also referred to as impairedglucose tolerance (IGT) or impaired fasting glucose (IFG). [facility] HospitalCalcium [id number] 01:29:00 Test Item Value Reference Range Interpretation Comments Calcium Level (test code = 60419-5) 9.2 8.9-10.3 [facility] Blood [id number] 01:20:00 Test Item Value Reference Range Interpretation Comments White Blood Count (test code = 6690-2) 12.3 4.8-10.8 H [facility] Blood [id number] 01:20:00 Test Item Value Reference Range Interpretation Comments Red Blood Count (test code = 789-8) 3.93 3.70-5.40 [facility] HospitalHemoglobin2019-01-26 01:20:00 Test Item Value Reference Range Interpretation Comments Hemoglobin (test code = 718-7) 12.6 12.0-16.0 [facility] HospitalHematocrit2019-01-26 01:20:00 Test Item Value Reference Range Interpretation Comments Hematocrit (test code = 44061-1) 36.3 37.0-47.[address] [facility] Corpuscular [id number] 01:20:00 Test Item Value Reference Range Interpretation Comments Mean Corpuscular Volume (test code = 92.3 80.0-100.0 06492-1) [facility] Corpuscular Ginwwmdhip8213-50-84 01:20:00 Test Item Value Reference Range Interpretation Comments Mean Corpuscular Hemoglobin (test code 32.2 27.0-31.0 H = 785-6) [facility] Corpuscular Hgb Concent [id number] 01:20:00 Test Item Value Reference Range Interpretation Comments Mean Corpuscular Hgb Concent Diff (test 34.8 32.0-36.0 code = 786-4) [facility] HospitalRed Cell Distribution [id number] 01:20:00 Test Item Value Reference Range Interpretation Comments Red Cell Distribution Width (test code 13.0 11.5-14.5 = 788-0) [facility] HospitalPlatelet [id number] 01:20:00 Test Item Value Reference Range Interpretation Comments Platelet Count (test code = 777-3) 235 130-[address] [facility] Platelet [id number] 01:20:00 Test Item Value Reference Range Interpretation Comments Mean Platelet Volume (test code = 7.6 34214-3) [facility] HospitalGranulocytes (%)2018-07-05 01:20:00 Test Item Value Reference Range Interpretation Comments Granulocytes (%) (test code = 71035-9) 74.2 50.0-75.0 [facility] HospitalLymphocytes %2018-07-05 01:20:00 Test Item Value Reference Range Interpretation Comments Lymphocytes % (test code = 736-9) 14.8 20.0-40.0 L [facility] HospitalMonocytes %2018-07-05 01:20:00 Test Item Value Reference Range Interpretation Comments Monocytes % (test code = 5905-5) 8.7 0.0-15.0 [facility] HospitalEosinophils %2018-07-05 01:20:00 Test Item Value Reference Range Interpretation Comments Eosinophils % (test code = 713-8) 1.9 0.0-10.0 [facility] HospitalBasophils %2018-07-05 01:20:00 Test Item Value Reference Range Interpretation Comments Basophils % (test code = 52265-6) 0.4 0.0-2.0 [facility] HospitalGranulocytes #2018-07-05 01:20:00 Test Item Value Reference Range Interpretation Comments Granulocytes # (test code = 55067-1) 9.1 1.8-6.4 H [facility] HospitalLymphocytes #2018-07-05 01:20:00 Test Item Value Reference Range Interpretation Comments Lymphocytes # (test code = 70549-0) 1.8 1.2-3.6 [facility] HospitalMonocytes #2018-07-05 01:20:00 Test Item Value Reference Range Interpretation Comments Monocytes # (test code = 742-7) 1.1 0.3-0.9 H [facility] HospitalEosinophils #2018-07-05 01:20:00 Test Item Value Reference Range Interpretation Comments Eosinophils # (test code = 711-2) 0.2 0.0-0.5 [facility] HospitalBasophils #2018-07-05 01:20:00 Test Item Value Reference Range Interpretation Comments Basophils # (test code = 97998-9) 0.1 0.0-0.2 [facility] HospitalManual [id number] 01:20:00 Test Item Value Reference Range Interpretation Comments Manual Differential (test code = Manual NO Differential) [facility]
[2023-04-14 10:29] LABS: Protime INR 1.12
[2023-04-14 10:31] LABS: Absolute Lymphocytes (CBC) 2.3 K/uL (0.7-4.9); Hematocrit 39.2 % (36.0-45.0); Lymphocytes % 24.4 % (15.3-44.8); MCV 95.6 fL (80-100); Platelets 240 thou/uL (152-406); RBC Red Blood Cell Count 4.09 M/uL (3.86-4.86)
[2023-04-14 10:45] LABS: Potassium 3.7 mEq/L (3.5-5.1); Troponin High Sensitivity 28.4 pg/mL (<58.9)
--- NOTE | 2023-04-14 11:58 | EDPHYS ---
Physician Documentation [facility] Name: Sirena Purdy Age: 87 yrs Sex: Female : 1935 Arrival Date: 04/14/2023 Time: 10:03 Bed 4 Private MD: ED Physician David Sumner HPI: 04/14 10:14 This 87 yrs old Female presents to ER via Wheelchair with complaints of Chest Pain. jh7 10:14 Onset: The symptoms/episode began/occurred this morning. Associated signs and symptoms: jh7 The patient has no apparent associated signs or symptoms. 89-year-old female presents to the ER complaining of chest pain since this morning. She reports that she was recently switched from metoprolol to carvedilol and that she has had trouble sleeping since then. Dr. 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 History of hypertension, A-fib, pacemaker, and 2 open heart surgeries. She is currently on Eliquis.. Historical: - Allergies: 10:18 Levaquin; hb 10:18 atorvastatin; hb 10:18 Ceftin; hb 10:18 Coumadin; hb 10:18 Cymbalta; hb 10:18 Linzess; hb 10:18 Lyrica; hb 10:18 Quinidine Sulfate; hb 10:18 Xarelto; hb - PMHx: 10:18 Atrial fibrillation; Hypertension; hb - PSHx: 10:18 CABG x 2; Pacemaker; Neck; Hysterectomy; Cholecystectomy; hb ROS: 10:14 Constitutional: Negative for fever, chills, and weight loss, Eyes: Negative for injury, jh7 pain, redness, and discharge, Neck: Negative for injury, pain, and swelling, Respiratory: Negative for shortness of breath, cough, wheezing, and pleuritic chest pain, Abdomen/GI: Negative for abdominal pain, nausea, vomiting, diarrhea, and constipation, Back: Negative for injury and pain, MS/Extremity: Negative for injury and deformity, Skin: Negative for injury, rash, and discoloration, Neuro: Negative for headache, weakness, numbness, tingling, and seizure, 10:14 Cardiovascular: Positive for chest pain, Negative for palpitations, 10:14 All other systems are negative, Exam: 10:14 Constitutional: This is a well developed, well nourished patient who is awake, alert, jh7 and in no acute distress. Head/Face: Normocephalic, atraumatic. Eyes: Pupils equal round and reactive to light, extra-ocular motions intact. Lids and lashes normal. Conjunctiva and sclera are non-icteric and not injected. Cornea within normal limits. Periorbital areas with no swelling, redness, or edema. Neck: Trachea midline, no thyromegaly or masses palpated, and no cervical lymphadenopathy. Supple, full range of motion without nuchal rigidity, or vertebral point tenderness. No Meningismus. Cardiovascular: Regular rate and rhythm with a normal S1 and S2. No gallops, murmurs, or rubs. Normal PMI, no JVD. No pulse deficits. Respiratory: Lungs have equal breath sounds bilaterally, clear to auscultation and percussion. No rales, rhonchi or wheezes noted. No increased work of breathing, no retractions or nasal flaring. Abdomen/GI: Soft, non-tender, with normal bowel sounds. No distension or tympany. No guarding or rebound. No evidence of tenderness throughout. Skin: Warm, dry with normal turgor. Normal color with no rashes, no lesions, and no evidence of cellulitis. MS/ Extremity: Pulses equal, no cyanosis. Neurovascular intact. Full, normal range of motion. Neuro: Awake and alert, GCS 15, oriented to person, place, time, and situation. Normal gait. Vital Signs: 10:12 BP 155 / 66; Pulse 70; Resp 18; Temp 97.9(TE); Pulse Ox 99% on R/A; Pain 6/10; hb 10:44 BP 150 / 74; Pulse 70; Resp 19; Pulse Ox 98% on R/A; iw 11:46 BP 154 / 80; Pulse 70; Resp 18 S; Pulse Ox 99% on R/A; iw 11:57 Weight 63.5 kg (R); iw 10:12 Pain Scale: Adult hb MDM: 10:09 Patient medically screened. [facility] 12:15 Differential diagnosis: pneumonia Acute OH, unstable angina, non-STEMI, stable angina, jh7 costochondritis, pleurisy. Data reviewed: vital signs, nurses notes, lab test result(s), EKG, radiologic studies, plain films. Consideration of Admission/Observation Patient was admitted/placed on observation. Management of patient was discussed with the following: Hospitalist: Dr. Juliette Lofton's [employer]. I considered the following discharge prescriptions or medication management in the emergency department Medications were administered in the Emergency Department. See MAR. Independent interpretation of the following test(s) in the Emergency Department EKG: See my EKG interpretation above. Care significantly affected by the following chronic conditions: Hypertension. Scoring Tools HEART Score: Total Score = 6. Counseling: I had a detailed discussion with the patient and/or guardian regarding the historical points, exam findings, and any diagnostic results supporting the discharge/admit diagnosis, the need for further work-up and treatment in the hospital. Response to treatment: the patient's symptoms have mildly improved after treatment. 04/14 10:15 Order name: Basic Metabolic Panel; Complete Time: 10:45 [facility] 04/14 10:15 Order name: CBC with Diff; Complete Time: 10:45 [facility] 04/14 10:15 Order name: NT PRO-BNP; Complete Time: 10:45 [facility] 04/14 10:15 Order name: PT-INR; Complete Time: 10:31 [facility] 04/14 10:15 Order name: Troponin HS; Complete Time: 10:45 [facility] 04/14 13:01 Order name: Urinalysis w/ reflexes EDMS 04/14 13:01 Order name: Basic Metabolic Panel EDMS 04/14 13:01 Order name: Basic Metabolic Panel EDMS 04/14 13:01 Order name: Basic Metabolic Panel EDMS 04/14 13:01 Order name: Basic Metabolic Panel EDMS 04/14 13:01 Order name: Basic Metabolic Panel EDMS 04/14 13:01 Order name: Basic Metabolic Panel EDMS 04/14 13:01 Order name: CBC with Automated Diff EDMS 04/14 13:01 Order name: CBC with Automated Diff EDMS 04/14 13:01 Order name: CBC with Automated Diff EDMS 04/14 13:01 Order name: CBC with Automated Diff EDMS 04/14 13:01 Order name: CBC with Automated Diff EDMS 04/14 13:01 Order name: CBC with Automated Diff EDMS 04/14 13:01 Order name: Magnesium EDMS 04/14 13:01 Order name: Magnesium EDMS 04/14 13:01 Order name: Magnesium EDMS 04/14 13:01 Order name: Magnesium EDMS 04/14 13:01 Order name: Magnesium EDMS 04/14 13:01 Order name: Magnesium EDMS 04/14 13:01 Order name: Phosphorus EDMS 04/14 13:01 Order name: Phosphorus EDMS 04/14 13:01 Order name: Phosphorus EDMS 04/14 13:01 Order name: Phosphorus EDMS 04/14 13:01 Order name: Phosphorus EDMS 04/14 13:01 Order name: Phosphorus EDMS 04/14 13:01 Order name: Troponin High Sensitivity EDMS 04/14 13:01 Order name: Troponin High Sensitivity EDMS 04/14 13:01 Order name: Troponin High Sensitivity EDMS 04/14 13:02 Order name: T4 Free EDMS 04/14 13:02 Order name: Thyroid Stimulating Hormone EDMS 04/14 13:03 Order name: Lipid Profile EDMS 04/14 10:15 Order name: XRAY Chest (1 view); Complete Time: 12:13 [facility] 04/14 13:02 Order name: Echo with Doppler EDCO 04/14 10:15 Order name: EKG; Complete Time: 10:15 [facility] 04/14 13:01 Order name: Physical Therapy Consult EDCO 04/14 10:15 Order name: Cardiac monitoring; Complete Time: 10:21 [facility] 04/14 10:15 Order name: EKG - Nurse/Tech; Complete Time: 10:21 [facility] 04/14 10:15 Order name: IV Saline Lock; Complete Time: 10:21 [facility] 04/14 10:15 Order name: Labs collected and sent; Complete Time: 10:21 [facility] 04/14 10:15 Order name: O2 Per Protocol; Complete Time: 10:21 [facility] 04/14 10:15 Order name: O2 Sat Monitoring; Complete Time: 10:21 [facility] EC:14 Rate is 69 beats/min. Rhythm is regular. QRS [place] is Normal. QRS interval is prolonged [facility] at 178 msec. QT interval is prolonged at 486 msec. Clinical impression: Electronic ventricular pacemaker. Administered Medications: 12:10 Drug: HYDROcodone-acetaminophen PO 5 mg-325 mg 1 tabs PO once Route: PO; iw 13:29 Not Given (Patient Refused): ondansetron 4 mg IVP once; over 2 minutes mb9 Disposition: 04/15 09:05 Co-signature as Attending Physician, David Sumner MD I reviewed the patient's care rn provided by the Advanced Practice Provider and agree with the diagnosis and treatment plan. Disposition Summary: 04/14/23 11:57 Hospitalization Ordered Notes: Hospitalization Status: Inpatient Admission [facility] Provider: Cayden Segovia [facility] Location: Telemetry/MedSurg (Inpatient) [facility] Condition: Stable [facility] Problem: new [facility] Symptoms: are unchanged [facility] Bed/Room Type: Standard [facility] Room Assignment: 208(04/14/23 14:05) eb Diagnosis - Chest pain, unspecified [facility] Forms: - Medication Reconciliation Form [facility] - SBAR form [facility] - Leadership Thank You Letter [facility] Signatures: Dispatcher [employer] Pearl Wilson RN RN iw Nieto, Roman, MD MD rn Baxter, Heather, RN RN hb Botello, Elizabeth eb Hadash, Jennifer, REGULATORY ATTORNEY REGULATORY ATTORNEY [facility] Sirena Carver RN mb9 Corrections: (The following items were deleted from the chart) 04/14 14:05 11:57 [facility]
--- NOTE | 2023-04-14 11:58 | ER ---
Nurse's Notes [facility] Name: Sirena Purdy Age: 87 yrs Sex: Female : 1935 Arrival Date: 04/14/2023 Time: 10:03 Bed 4 Private MD: Diagnosis: Chest pain, unspecified Presentation: 04/14 10:12 Chief complaint: Chest pain and palpitations x 2 days. Coronavirus screen: At this hb time, the client does not indicate any symptoms associated with coronavirus-19. Ebola Screen: No symptoms or risks identified at this time. Initial Sepsis Screen: Does the patient meet any 2 criteria? No. Patient's initial sepsis screen is negative. Does the patient have a suspected source of infection? No. Patient's initial sepsis screen is negative. Risk Assessment: Do you want to hurt yourself or someone else? Patient reports no desire to harm self or others. Onset of symptoms was April 13, 2023. 10:12 Method Of Arrival: Wheelchair hb 10:12 Acuity: OSMAN 3 hb Historical: - Allergies: 10:18 Levaquin; hb 10:18 atorvastatin; hb 10:18 Ceftin; hb 10:18 Coumadin; hb 10:18 Cymbalta; hb 10:18 Linzess; hb 10:18 Lyrica; hb 10:18 Quinidine Sulfate; hb 10:18 Xarelto; hb - PMHx: 10:18 Atrial fibrillation; Hypertension; hb - PSHx: 10:18 CABG x 2; Pacemaker; Neck; Hysterectomy; Cholecystectomy; hb Screenin:23 [facility] ED Fall Risk Assessment (Adult) Score/Fall Risk Level 0 - 2 = Low Risk. Abuse iw screen: Denies threats or abuse. Denies injuries from another. Nutritional screening: No deficits noted. Tuberculosis screening: No symptoms or risk factors identified. Assessment: 10:22 General: Appears in no apparent distress. Behavior is calm, cooperative. Pain: iw Complains of pain in mid-sternal area and right breast Pain does not radiate. Pain Pain began 1 day ago. Is continuous. Neuro: Level of Consciousness is awake, alert, obeys commands, Oriented to person, place, time, Moves all extremities. Cardiovascular: Reports chest pain, nausea, shortness of breath. Respiratory: Respiratory effort is even, unlabored, Respiratory pattern is regular. GI: Abdomen is flat, non-distended. Derm: Skin is fragile, is thin. Musculoskeletal: Range of motion: intact in all extremities. 10:44 Reassessment: Patient appears in no apparent distress at this time. pt assisted to iw bedside commode. 11:46 Reassessment: Patient appears in no apparent distress at this time. Patient and/or iw family updated on plan of care and expected duration. Pain level reassessed. Patient is alert, oriented x 3, equal unlabored respirations, skin warm/dry/pink. 12:11 Reassessment: Patient appears in no apparent distress at this time. Patient and/or iw family updated on plan of care and expected duration. Pain level reassessed. pt sleeping, call light in reach. Vital Signs: 10:12 BP 155 / 66; Pulse 70; Resp 18; Temp 97.9(TE); Pulse Ox 99% on R/A; Pain 6/10; hb 10:44 BP 150 / 74; Pulse 70; Resp 19; Pulse Ox 98% on R/A; iw 11:46 BP 154 / 80; Pulse 70; Resp 18 S; Pulse Ox 99% on R/A; iw 11:57 Weight 63.5 kg (R); iw 10:12 Pain Scale: Adult hb ED Course: 10:07 Patient arrived in ED. hb 10:09 [facility] Morrow [facility] jh7 10:09 David Sumner MD is Attending Physician. jh7 10:14 Triage completed. hb 10:15 Arm band placed on. hb 10:21 Pearl Amado, RN is Primary Nurse. iw 10:21 Initial lab(s) drawn, by me, sent to lab. Inserted saline lock: 20 gauge in right iw antecubital area, using aseptic technique. Blood collected. Patient maintains SpO2 saturation greater than 95% on room air. 10:23 Patient has correct armband on for positive identification. Client placed on continuous iw cardiac and pulse oximetry monitoring. NIBP monitoring applied. 11:25 XRAY Chest (1 view) In Process Unspecified. EDMS 11:57 Cayden Segovia is Hospitalizing Provider. jh7 Administered Medications: 12:10 Drug: HYDROcodone-acetaminophen PO 5 mg-325 mg 1 tabs PO once Route: PO; iw 13:29 Not Given (Patient Refused): ondansetron 4 mg IVP once; over 2 minutes mb9 Medication: 10:23 VIS not applicable for this client. petra Outcome: 11:57 Decision to Hospitalize by Provider. bandar 14:42 Patient left the ED. mb9 Signatures: Dispatcher [employer] Pearl Wilson, ALFREDA GANT Cindy Bowers RN RN Kiya Morrow, RANGE RIDER RANGE RIDER Sirena Levine RN RN mb9
--- NOTE | 2023-04-14 12:11 | RAD REPORT ---
[facility] 11[facility]23 am CLINICAL HISTORY: CHEST PAIN COMPARISON: CHEST SINGLE VIEW dated 08/09/2009; CHEST PA AND LAT 2 VIEW dated 05/30/2009; CHEST SINGLE VIEW dated 04/17/2009; CHEST PA AND LAT 2 VIEW dated 11/25/2008; SPINE LUMBAR W OBLIQUE dated 9 TECHNIQUE: Portable AP view of the chest. FINDINGS: Triangular right apical airspace opacity peripherally is new. Patchy left basilar airspace opacification. Findings may relate to atelectasis or developing airspace disease. No pneumothorax o r effusion. The cardiomediastinal contours are unchanged with sequelae of CABG. Left chest wall pace r/AICD in place. IMPRESSION: Right apical and left basilar airspace opacities, could represent atelectasis or develop ing airspace disease. .
[2023-04-14] MEDS ORDERED: HYDROCODONE/APAP 5/325 MG TAB ONE (12:12)
--- NOTE | 2023-04-14 13:09 | P.HP ---
Certification for Inpatient Patient admitted to: Observation With expected LOS: >2 Midnights Practitioner: I am a practitioner with admitting privileges, knowledge of patient current condition, hospital course, and medical plan of care. Services: Services provided to patient in accordance with Admission requirements found in Title 42 Section 412.3 of the Code of Federal Regulations Patient History Date of Service: 04/14/23 Reason for admission: chest pain History of Present Illness: Sirena Purdy is a pleasant 87 year old female with Pmhx of HTN, Afib, pacemaker, 2 vessel CABG and uses an inhaler who presents to the ED with c/o chest pain. She reports SOB with CP in the middle of her chest for the last day. She also c/o frequent urination and "almost" diarrhea. She stated that her doctor changed one medication to a night time dose and every since then she cannot sleep at night, her daughter has the list of medications. Initial vitals BP 155 / 66; Pulse 70; Resp 18; Temp 97.9; Pulse Ox 99% on R/A. Labs are unremarkable, Troponin 28.4, BNP 3426. Her heart score is 6. Will collect a UA. Chest xray report states " Right apical and left basilar airspace opacities, co uld represent atelectasis or developing airspace disease". On examination she is alert and oriented x3, she is c/o right flank pain on palpation, she is on RA with clear lung sounds. She currently lives with her daughter and uses a cane to ambulate. Sirena will be admitted to hospitalist service for further evaluation of Chest pain r/o ACS. Allergies levofloxacin [From Levaquin] Allergy (Verified 04/14/23 13:19) Rash Home Medications: Amitriptyline [Elavil] 10 mg PO BEDTIME 04/14/23 Apixaban [Eliquis] 2.5 mg PO BID 04/14/23 Carvedilol [Coreg] 12.5 mg PO BID 04/14/23 Famotidine [Pepcid] 20 mg PO BID 04/14/23 Fexofenadine HCl [Rylie Allergy] 60 mg PO BEDTIME 04/14/23 Fluticasone Propionate [Fluticasone Propionate Hfa] 2 puff IH BID 04/14/23 Furosemide [Lasix] 20 mg PO DAILY 04/14/23 Losartan Potassium [Cozaar] 50 mg PO BID 04/14/23 hydroCHLOROthiazide [Hydrodiuril] 50 mg PO DAILY 04/14/23 Review of Systems General: Weakness, Malaise Eyes: Unremarkable ENT: Unremarkable Cardiovascular: Chest Pain Gastrointestinal: Nausea, Diarrhea Genitourinary: Other (right flank pain) Musculoskeletal: Unremarkable Integumentary: Unremarkable Neurological: Unremarkable Physical Examination - Physical Exam General: Alert, In no apparent distress, Oriented x3 HEENT: Atraumatic, Normocephalic, PERRLA Neck: Supple, 2+ carotid pulse no bruit, JVD not distended Respiratory: Clear to auscultation bilaterally, Normal air movement Cardiovascular: No edema, Normal pulses, Regular rate/rhythm, Normal S1 S2 Capillary refill: <2 Seconds Gastrointestinal: Normal bowel sounds, Soft and benign Musculoskeletal: No clubbing, No swelling, No contractures Integumentary: No rashes, No breakdown, No significant lesion Neurological: Normal speech, Normal strength at 5/5 x4 extr, Normal tone - Studies Laboratory Data (last 24 hrs) 04/14/23 04/14/23 04/14/23 10:15 10:15 10:15 WBC 9.60 Hgb 13.1 Hct 39.2 Plt Count 240 PT 12.3 INR 1.12 Sodium 140 Potassium 3.7 BUN 24 H Creatinine 0.99 Glucose 111 H Assessment and Plan - Plan Assessment and Plan Chest pain r/o ACS in patient s/p 2 vessel CABG and pacemaker Hx Afib troponin 28.4, serial pending BNP 3426 Asa, Statin, BB continue Eliquis Restart home medications continuous Telemetry EKG: Rate is 69 beats/min. Rhythm is regular. QRS [place] is Normal. QRS interval is prolonged at 178 msec. QT interval is prolonged at 486 msec. Electronic ventricular pacemaker Prolonged Qt/QTC QT/QTC 486/520 Hold zofran and phenegan selective antibiotics Nausea and diarrhea Review home medications QT prolonged hold zofran and phenergan Right flank pain UA pending DNR DVT ppx: lovenox LOS 2-3 days Discharge Plan: Home Plan to discharge in: 48 Hours - Advance Directives Does patient have a Living Will: No Does patient have a Durable POA for Healthcare: No Time Spent Managing Pts Care (In Minutes): 55
[2023-04-14 15:16] VITALS: BMI 28.3
[2023-04-14] MEDS: NA CHLORIDE 0.9% 1,000 ML IV SCH (20:32)
[2023-04-14] MEDS: carvediloL 12.5 MG TAB PO SCH (20:33)
[2023-04-14] MEDS: LOSARTAN POTASSIUM 50 MG TABLET PO SCH (20:34)
[2023-04-14] MEDS ORDERED: AMITRIPTYLINE 10 MG TAB PO SCH (21:00)
[2023-04-14] MEDS ORDERED: FLUTICASONE PROPIONATE IH SCH (21:00)
[2023-04-14] MEDS ORDERED: FAMOTIDINE 20 MG TAB PO SCH (21:00)
[2023-04-14] MEDS ORDERED: ATORVASTATIN 40 MG TAB PO SCH (21:00)
[2023-04-14] MEDS ORDERED: APIXABAN 2.5 MG TABLET PO ONE (23:00)
[2023-04-15 01:55] LABS: Hematocrit 31.7 % (36.0-45.0); Lymphocytes % 34.1 % (15.3-44.8); MCV 95.3 fL (80-100); MPV 7.8 fL (7.6-11.3); Platelets 200 thou/uL (152-406); RBC Red Blood Cell Count 3.33 M/uL (3.86-4.86)
[2023-04-15 02:15] LABS: Magnesium 2.1 mg/dL (1.6-2.4); Phosphorus 3.1 mg/dL (2.5-4.9); Potassium 3.4 mEq/L (3.5-5.1); Thyroid Stimulating Hormone 2.1 uIU/mL (0.358-3.740)
[2023-04-15] MEDS: NA CHLORIDE 0.9% 1,000 ML IV SCH (02:36)
[2023-04-15 04:21] VITALS: O2SAT 97
[2023-04-15] MEDS ORDERED: POTASSIUM CL SA 10 MEQ TAB PO ONE (09:00)
[2023-04-15] MEDS ORDERED: ASPIRIN EC 81 MG TAB PO SCH (09:00)
[2023-04-15] MEDS ORDERED: ENOXAPARIN 40 MG/0.4 ML SQ SCH (09:00)
[2023-04-15] MEDS ORDERED: APIXABAN 2.5 MG TABLET PO SCH (09:00)
[2023-04-15] MEDS ORDERED: hydroCHLOROthiazide 25 MG TAB PO SCH (09:00)
[2023-04-15] MEDS: LOSARTAN POTASSIUM 50 MG TABLET PO SCH (09:10)
[2023-04-15] MEDS: carvediloL 12.5 MG TAB PO SCH (09:10)
[2023-04-15 10:06] VITALS: BP 148/78; TEMP 97.9
--- NOTE | 2023-04-15 10:18 | P.DS ---
Admission Date: 04/14/23 Discharge Date: 04/15/23 Reason for Admission: chest pain - Problems (1) Chest pain Status: Acute Brief History of Present Illness: Sirena Purdy is a pleasant 87 year old female with Pmhx of HTN, Afib, pacemaker, 2 vessel CABG and uses an inhaler who presents to the ED with c/o chest pain. She reports SOB with CP in the middle of her chest for the last day. She also c/o frequent urination and "almost" diarrhea. She stated that her doctor changed one medication to a night time dose and every since then she cannot sleep at night, her daughter has the list of medications. Initial vitals BP 155 / 66; Pulse 70; Resp 18; Temp 97.9; Pulse Ox 99% on R/A. Labs are unremarkable, Troponin 28.4, BNP 3426. Her heart score is 6. Will collect a UA. Chest xray report states " Right apical and left basilar airspace opacities, could represent atelectasis or developing airspace disease". On examination she is alert and oriented x3, she is c/o right flank pain on palpation, she is on RA with clear lung sounds. She currently lives with her daughter and uses a cane to ambulate. Sirena will be admitted to hospitalist service for further evaluation of Chest pain r/o ACS. Hospital Course: Sirena Purdy is a pleasant 87 year old female with a past medical history significant for HTN, Afib, pacemaker, 2 vessel CABG and uses an inhaler who was admitted to the [facility] on 04/14/23 for Chest pain r/o ACS. Sirena presented to the ED with c/o SOB with CP in the middle of her chest for the last day. Troponin and EKG were negative for VT and was consulted who requested an outpatient stress test. She is doing well this morning. Tolerating CLD, afebrile, on RA, and her daughter is good support. On 04/15/23, Sirena was seen on morning rounds and deemed medically stable for discharge. Sirena was discharged with instructions to schedule follow-up appointments with Dr. Hussein for an outpatient stress test. Sirena was provided prescriptions for atorvatatin. Sirena and family members were given the opportunity to ask questions and reported no further questions. Furthermore, all questions were answered to the best of my ability. A copy of this discharge summary will be sent to the above providers to facilitate continuity of care. Today, I personally spent 55 minutes with Sirena, of which greater than 50% of the time was spent in patient education, counseling, and coordination of care as described above. Physical Exam General: Alert, In no apparent distress, Oriented x3 HEENT: Atraumatic, Normocephalic, PERRLA Neck: Supple, 2+ carotid pulse no bruit, JVD not distended Respiratory: Clear to auscultation bilaterally, Normal air movement Cardiovascular: No edema, Normal pulses, Regular rate/rhythm, Normal S1 S2 Capillary refill: <2 Seconds Gastrointestinal: Normal bowel sounds, Soft and benign Musculoskeletal: No clubbing, No swelling, No contractures Integumentary: No rashes, No breakdown, No significant lesion Neurological: Normal speech, Normal strength at 5/5 x4 extr, Normal tone <Kirsty Portillo - Last Filed: 04/15/23 10:34> Admission Date: 04/14/23 Discharge Date: 04/15/23 Hospital Course: Diagnosis Chest pain s/p 2 vessel CABG and pacemaker Hx Afib <deisy stern - Last Filed: 04/15/23 19:33> Disposition: ROUTINE DISCHARGE Discharge Condition: FAIR Vital Signs/Physical Exam: Temp Pulse Resp BP Pulse Ox 97.9 F 69 16 148/78 H 97 04/15/23 08:00 04/15/23 08:00 04/15/23 08:00 04/15/23 08:00 04/15/23 08:00 Laboratory Data at Discharge: WBC 8.60 thou/uL (4.3-10.9) 04/15/23 01:39 Hgb 10.7 g/dL (12.0-15.0) L D 04/15/23 01:39 Hct 31.7 % (36.0-45.0) L 04/15/23 01:39 Plt Count 200 thou/uL (152-406) 04/15/23 01:39 PT 12.3 SECONDS (9.5-12.5) 04/14/23 10:15 INR 1.12 04/14/23 10:15 Sodium 142 mEq/L (136-145) 04/15/23 01:39 Potassium 3.4 mEq/L (3.5-5.1) L 04/15/23 01:39 BUN 23 mg/dL (7-18) H 04/15/23 01:39 Creatinine 0.98 mg/dL (0.55-1.02) 04/15/23 01:39 Glucose 103 mg/dL (74-106) 04/15/23 01:39 Phosphorus 3.1 mg/dL (2.5-4.9) 04/15/23 01:39 Magnesium 2.1 mg/dL (1.6-2.4) 04/15/23 01:39 Triglycerides 111 mg/dL (<150) 04/15/23 01:39 Cholesterol 134 mg/dL (<200) 04/15/23 01:39 HDL Cholesterol 40 mg/dL (40-60) 04/15/23 01:39 Cholesterol/HDL Ratio 3.35 04/15/23 01:39 <Kirsty Portillo - Last Filed: 04/15/23 10:34> Vital Signs/Physical Exam: Temp Pulse Resp BP Pulse Ox 97.9 F 69 16 148/78 H 97 04/15/23 08:00 04/15/23 08:00 04/15/23 08:00 04/15/23 08:00 04/15/23 08:00 Laboratory Data at Discharge: WBC 8.60 thou/uL (4.3-10.9) 04/15/23 01:39 Hgb 10.7 g/dL (12.0-15.0) L D 04/15/23 01:39 Hct 31.7 % (36.0-45.0) L 04/15/23 01:39 Plt Count 200 thou/uL (152-406) 04/15/23 01:39 PT 12.3 SECONDS (9.5-12.5) 04/14/23 10:15 INR 1.12 04/14/23 10:15 Sodium 142 mEq/L (136-145) 04/15/23 01:39 Potassium 3.4 mEq/L (3.5-5.1) L 04/15/23 01:39 BUN 23 mg/dL (7-18) H 04/15/23 01:39 Creatinine 0.98 mg/dL (0.55-1.02) 04/15/23 01:39 Glucose 103 mg/dL (74-106) 04/15/23 01:39 Phosphorus 3.1 mg/dL (2.5-4.9) 04/15/23 01:39 Magnesium 2.1 mg/dL (1.6-2.4) 04/15/23 01:39 Triglycerides 111 mg/dL (<150) 04/15/23 01:39 Cholesterol 134 mg/dL (<200) 04/15/23 01:39 HDL Cholesterol 40 mg/dL (40-60) 04/15/23 01:39 Cholesterol/HDL Ratio 3.35 04/15/23 01:39 <deisy stern - Last Filed: 04/15/23 19:33> Diet: AHA Activity: Fall precautions Time spent managing pt's care (in minutes): 55 <Kirsty Portillo - Last Filed: 04/15/23 10:34> <deisy stern - Last Filed: 04/15/23 19:33> Home Medications: Amitriptyline [Elavil*] 10 mg PO BEDTIME 04/14/23 Apixaban [Eliquis *] 2.5 mg PO BID 04/14/23 Carvedilol [Coreg] 12.5 mg PO BID 04/14/23 Famotidine [Pepcid*] 20 mg PO BID 04/14/23 Fexofenadine HCl [Rylie Allergy] 60 mg PO BEDTIME 04/14/23 Fluticasone Propionate [Fluticasone Propionate Hfa] 2 puff IH BID 04/14/23 Furosemide [Lasix*] 20 mg PO DAILY 04/14/23 Losartan Potassium [Cozaar*] 50 mg PO BID 04/14/23 hydroCHLOROthiazide [Hydrodiuril*] 50 mg PO DAILY 04/14/23 Amox/Clavulanate [Augmentin 875-125 Tab] 875 mg PO BID #14 tab 04/15/23 Aspirin [Aspirin EC 81 MG] 81 mg PO DAILY 30 Days #30 tab 04/15/23 Atorvastatin Calcium [Lipitor] 40 mg PO BEDTIME 30 Days #30 tab 04/15/23 New Medications: Aspirin [Aspirin EC 81 MG] 81 mg PO DAILY 30 Days #30 tab Amox/Clavulanate [Augmentin 875-125 Tab] 875 mg PO BID #14 tab Atorvastatin Calcium [Lipitor] 40 mg PO BEDTIME 30 Days #30 tab Physician Discharge Instructions: 1. Follow up with Dr. Hussein in one week for outpatient stress test, please call to schedule 2. Follow up with PCP for medication management 3. heart healthy diet 4. Fall precaution, ambulate with support only 5. Return to ED if symptoms return New medication Lipitor has been called into your pharmacy aspirin 81 mg daily for heart health Followup: OOT,OOT [Primary Care Provider] - hCris Hussein MD [ACTIVE - CAN ADMIT] -
--- NOTE | 2023-04-17 08:49 | ECHO ---
HEIGHT: 4 ft 11 in WEIGHT: 140 lb 0 oz DATE OF STUDY: 04/15/[address]: Kirsty Portillo NP 2-DIMENSIONAL: YES M.MODE: YES DOPPLER: YES COLOR FLOW: YES TDS: PORTABLE: YES DEFINITY: BUBBLE STUDY: DIAGNOSIS: CHEST PAIN CARDIAC HISTORY: CATHERIZATION: YES SURGERY: YES PROSTHETIC VALVE: NO PACEMAKER: NO MEASUREMENTS (cm) DIASTOLIC (NORMALS) SYSTOLIC (NORMALS) IVSd 1.2 (0.6-1.2) LA Diam 3.2 (1.9-4.0) LVEF 59% LVIDd 2.9 (3.5-5.7) LVIDs 2.0 (2.0-3.5) %FS 30% LVPWd 1.2 (0.6-1.2) Ao Diam 2.4 (2.0-3.7) 2 DIMENSIONAL ASSESSMENT: RIGHT ATRIUM: NORMAL LEFT ATRIUM: NORMAL RIGHT VENTRICLE: NORMAL LEFT VENTRICLE: NORMAL TRICUSPID VALVE: MILD TRICUSPID REGURGITATION MITRAL VALVE: MILD MITRAL REGURGITATION PULMONIC VALVE: MILD PULMONIC INSUFFICIENCY AORTIC VALVE: CALCIFIED, NO AORTIC STENOSIS PERICARDIAL EFFUSION: NONE AORTIC ROOT: NORMAL LEFT VENTRICULAR WALL MOTION: NORMAL DOPPLER/COLOR FLOW: SEE BELOW COMMENTS: 1. NORMAL LEFT VENTRICULAR EJECTION FRACTION 55-60% 2. NORMAL WALL MOTION 3. MILD MITRAL REGURGITATION, TRICUSPID REGURGITATION, PULMONIC INSUFFICIENCY TECHNOLOGIST: FERCHO STEPHENSON
== END 2023-04-15 11:59 | disposition home or self-care (01) ==
LOC: ER 10:03 → ERHOLD 12:49 → 2ND 14:24
PROVIDERS: ADMIT Internal Medicine; ATTEND Internal Medicine
DX: R07.9 Chest pain, unspecified (principal); R94.31 Abnormal electrocardiogram [ECG] [EKG]; I48.11 Longstanding persistent atrial fibrillation; R06.02 Shortness of breath; I10 Essential (primary) hypertension; R11.2 Nausea with vomiting, unspecified; R10.9 Unspecified abdominal pain; Z79.01 Long term (current) use of anticoagulants; Z95.0 Presence of cardiac pacemaker; Z95.1 Presence of aortocoronary bypass graft
CPT/HCPCS: 93005; 93306; 85025 ×2; 80048 ×2; 36415; 83735; 84100; 85610; 80061; 84443; 84484 ×3; 84439; 83880; 71045; 97116; 97161; 97530; 99284; J7030; G0378 ×3

== ENCOUNTER 2023-07-13 02:13 | Observation (INO) | payer OTHER ==
--- OUTSIDE RECORDS SUMMARY | 2023-07-13 02:31 | XMS REPORT | Continuity of Care Document ---
Author Name Unknown Address [address] [facility] [address]. [address] [place] [address] [facility] thconnect Address [address] [facility] [place] [address] Care Team Providers Care Script Worker Name Role Phone Chuy Brooks MD Primary Care Physician + [phone] JENNIFER HERNANDEZ Attending Clinician Unavailable JENNIFER HERNANDEZ Attending Clinician Unavailable CHUY BROOKS Attending Clinician Unavailable Chuy Brooks MD Attending Clinician [phone] Doctor Unassigned, [place] Attending Clinician U navailable Pob, [facility] Attending Clinician UnavailEmy So RN Attending Clinician Saray vailable Jennifer Hernandez DO Attending Clinician [phone] JING ZHOU Attending Clinician Unavailable LAUREN BOLTON Attending Clinician Unavailable Lauren Bolton MD Attending Clinician River Downs MD Attending Clinician RIVER DOWNS Attending Clinician Unavailab Taylor Rodriguez MD Attending Clinician [phone], [facility] Attending Clinician Unavailable JING BAIN Attending Clinician Unavailable CHEYENNE TAMAYO Attending Clinician Unavailable MCKENZIE PÉREZ Attending Clinician UnavailJesse Garduno MD Attending Clinician [phone] Radiology Attending Clinician Unavailable YAO ORLANDO Attending Clinician Unavailable KOLE BOYCE Attending Clinician Unavailable OMAR GRAFF Attending Clinician Unavailable SIRENA WOODARD Attending Clinician Unavailable Mann Wright MD Attending Clinician [phone] LAUREN BOLTON Admitting Clinician Unavailable CHUY BROOKS Admitting Clinician Unavailable YAO ORLANDO Admitting Clinician Unavailable KOLE BOYCE Admitting Clinician Unavailable OMAR GRAFF Admitting Clinician Unavailable SIRENA WOODARD Admitting Clinician Unavailable Payers Payer Name Policy Type Policy Number Effective Date Expiration Date Source [employer] PPO [id number] 2020 00:00:00 2 C [id number] 2020 00:00:00 [employer] PPO NA [facility] Problems Condition Name Condition Details Condition Category Status Onset Date Resolution Date Last Treatment Date Treating Clinician Comments Source Slow transit constipati on Slow transit constipati on Disease Active 2022-06 00:00: 00 [facility] Anxiety, generalize d Anxiety, generalize d Disease Active 2022-06 00:00: 00 [facility] Memory changes Memory changes Disease Active 2022-06 00:00: 00 [facility] Decreased GFR Decreased GFR Disease Active 2022-06 00:00: 00 [facility] Prediabete s Prediabete s Disease Active 2022-06 00:00: 00 [facility] Cardiac pacemaker in situ Cardiac pacemaker in situ Disease Active 8-08 00:00: 00 [facility] At risk for injury associated with anticoagul ation At risk for injury associated with anticoagul ation Disease Active 8-08 00:00: 00 [facility] Essential hypertensi on, benign Essential hypertensi on, benign Disease Active 8-08 00:00: 00 [facility] History of lung cancer History of lung cancer Disease Active 8-08 00:00: 00 [facility] Post-nasal drip Post-nasal drip Disease Active 8-08 00:00: 00 [facility] Subacute maxillary sinusitis Subacute maxillary sinusitis Disease Active 8-08 00:00: 00 [facility] Hypertensi ve urgency Hypertensi ve urgency Disease Active 6-15 00:00: 00 [facility] Chronic allergic rhinitis Chronic allergic rhinitis Disease Active 2021-06 00:00: 00 [facility] Mild depression Mild depression Disease Active 2021-06 00:00: 00 [facility] Anxiety Anxiety Disease Active 2021-06 00:00: 00 [facility] 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 Disease Active 2021-06 0-18 00:00: 00 [facility] Chronic atrial fibrillati on Chronic atrial fibrillati on Disease Active 2021-06 0-18 00:00: 00 [facility] Fibromyalg ia Fibromyalg ia Disease Active 2021-06 0-18 00:00: 00 [facility] 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 Disease Active 2021-06 0-18 00:00: 00 [facility] Non-small cell cancer of right lung Non-small cell cancer of right lung Disease Active 2021-06 0-18 00:00: 00 [facility] Radiation gastritis Radiation gastritis Disease Active 2021-06 0-18 00:00: 00 [facility] S/P radiation therapy S/P radiation therapy Disease Active 2021-06 0-18 00:00: 00 [facility] SOB (shortness of breath) SOB (shortness of breath) Disease Active 2021-06 0-18 00:00: 00 [facility] Chronic pain syndrome Chronic pain syndrome Disease Active 2021-06 00:00: 00 [facility] 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 Disease Active 2021-06 00:00: 00 [facility] Lumbar radicular syndrome Lumbar radicular syndrome Disease Active 2021-06 018 00:00: 00 [facility] Chronic cystitis Chronic cystitis Disease Active 2021-06 00:00: 00 [facility] Screening for diabetes mellitus (DM) Screening for diabetes mellitus (DM) Disease Active 2021-06 00:00: 00 [facility] Pain management contract signed Pain management contract signed Disease Active 2021-06 00:00: 00 [facility] Chest pain Chest pain Disease Active 2005-06 00:00: 00 Overview: Formattin g of this note might be different from the original. ICD10 Diagnosis Term [employer] [facility] HLD (hyperlipi demia) HLD (hyperlipi demia) Disease Active 11-13 00:00: 00 Overview: Formattin g of this note might be different from the original. Formattin g of this note might be different from the original. ICD10 Diagnosis Term [employer] [facility] Uncontroll ed hypertensi on Uncontroll ed hypertensi on Disease Active 11-13 00:00: 00 [facility] Essential hypertensi on, benign Essential hypertensi on, benign Disease Active 11-13 00:00: 00 [facility] Mixed hyperlipid emia Mixed hyperlipid emia Disease Active 11-13 00:00: 00 Overview: Formattin g of this note might be different from the original. ICD10 Diagnosis Term [facility] [facility] Backache Backache Disease Active 11-13 00:00: 00 Overview: Formattin g of this note might be different from the original. ICD10 Diagnosis Term [employer] [facility] Coronary artery disease CAD (coronary artery disease) Problem Active [facility] Allergies, Adverse Reactions, Alerts Allergy Name Allergy Type Status Severity Reaction(s) Onset Date Inactive Date Treating Clinician Comments Source LEVOFLOX ACIN DRUG INGREDI Active Unknown-Cmnt 2021- 0-18 00:00: 00 [facility] LINACLOT ARTIE DRUG INGREDI Active Unknown-Cmnt 2021- 0-18 00:00: 00 [facility] PREGABAL IN DRUG INGREDI Active Unknown-Cmnt 2021- 0-18 00:00: 00 [facility] QUINIDIN E DRUG INGREDI Active Unknown-Cmnt 2021- 0-18 00:00: 00 [facility] RIVAROXA BAN DRUG INGREDI Active Unknown-Cmnt 2021- 0-18 00:00: 00 [facility] Atorvast atin Propensi ty to adverse reaction s Active Unknown - See comments 2021-06 0-18 00:00: 00 [facility] Cefuroxi me Axetil Propensi ty to adverse reaction s Active Unknown - See comments 2021-06 0-18 00:00: 00 [facility] ATORVAST ATIN DRUG INGREDI Active Unknown-Cmnt 2021- 0-18 00:00: 00 [facility] CEFUROXI ME AXETIL DRUG INGREDI Active Unknown-Cmnt 2021- 0-18 00:00: 00 [facility] CELECOXI B DRUG INGREDI Active Unknown-Cmnt 2021- 0-18 00:00: 00 [facility] WARFARIN DRUG INGREDI Active Unknown-Cmnt 2021- 0-18 00:00: 00 [facility] DULOXETI NE DRUG INGREDI Active Unknown-Cmnt 2021- 0-18 00:00: 00 [facility] Atorvast atin Propensi ty to adverse reaction s Active Unknown 2021- 0-18 00:00: 00 [facility] Celecoxi b Propensi ty to adverse reaction s Active Unknown 2021- 0-18 00:00: 00 [facility] Duloxeti ne Propensi ty to adverse reaction s Active Unknown 2021- 0-18 00:00: 00 [facility] Levoflox acin Propensi ty to adverse reaction s Active Unknown 2021- 0-18 00:00: 00 [facility] Linaclot artie Propensi ty to adverse reaction s Active Unknown 2021-06 00:00: 00 [facility] Pregabal in Propensi ty to adverse reaction s Active Unknown 2021-0618 00:00: 00 [facility] Quinidin e Propensi ty to adverse reaction s Active Unknown 2021-0618 00:00: 00 [facility] Rivaroxa ban Propensi ty to adverse reaction s Active Unknown 2021-06 00:00: 00 [facility] Warfarin Propensi ty to adverse reaction s Active Unknown 2021-06 00:00: 00 [facility] Xarelto Drug Allergy Active U Not Specified 01-21 13:46: 58 [facility] Lyrica Drug Allergy Active U Not Specified 01-21 13:46: 58 [facility] Celebrex Drug Allergy Active U Not Specified 01-21 13:46: 58 [facility] Warfarin Sodium Drug Allergy Active U Not Specified 01-21 13:46: 58 [facility] Cymbalta Drug Allergy Active U Not Specified 01-21 13:46: 58 [facility] Levaquin Drug Allergy Active U Not Specified 01-21 13:46: 58 [facility] Quinidin e Sulfate Drug Allergy Active U Not Specified 01-21 13:46: 58 [facility] Linzess Drug Allergy Active U Not Specified 01-21 13:46: 58 [facility] Warfarin Sodium Drug Allergy Active U Not Specified 01-21 13:46: 58 [facility] Quinidin e Sulfate Drug Allergy Active U Not Specified 01-21 13:46: 58 [facility] Linzess Drug Allergy Active U Not Specified 01-21 13:46: 58 [facility] Warfarin Sodium Drug Allergy Active U Not Specified 01-21 13:46: 58 [facility] Quinidin e Sulfate Drug Allergy Active U Not Specified 01-21 13:46: 58 [facility] Linzess Drug Allergy Active U Not Specified 01-21 13:46: 58 [facility] Warfarin Sodium Drug Allergy Active U Not Specified 01-21 13:46: 58 [facility] Quinidin e Sulfate Drug Allergy Active U Not Specified 01-21 13:46: 58 [facility] Linzess Drug Allergy Active U Not Specified 01-21 13:46: 58 [facility] Warfarin Sodium Drug Allergy Active U Not Specified 01-21 13:46: 58 [facility] Quinidin e Sulfate Drug Allergy Active U Not Specified 01-21 13:46: 58 [facility] Linzess Drug Allergy Active U Not Specified 01-21 13:46: 58 [facility] Warfarin Sodium Drug Allergy Active U Not Specified 01-21 13:46: 58 [facility] Quinidin e Sulfate Drug Allergy Active U Not Specified 01-21 13:46: 58 [facility] Linzess Drug Allergy Active U Not Specified 01-21 13:46: 58 [facility] Warfarin Sodium Drug Allergy Active U Not Specified 01-21 13:46: 58 [facility] Quinidin e Sulfate Drug Allergy Active U Not Specified 01-21 13:46: 58 [facility] Linzess Drug Allergy Active U Not Specified 01-21 13:46: 58 [facility] Warfarin Sodium Drug Allergy Active U Not Specified 01-21 13:46: 58 [facility] Quinidin e Sulfate Drug Allergy Active U Not Specified 01-21 13:46: 58 [facility] Linzess Drug Allergy Active U Not Specified 01-21 13:46: 58 [facility] Warfarin Sodium Drug Allergy Active U Not Specified 01-21 13:46: 58 [facility] Quinidin e Sulfate Drug Allergy Active U Not Specified 01-21 13:46: 58 [facility] Linzess Drug Allergy Active U Not Specified 01-21 13:46: 58 [facility] Linzess Drug Allergy Active U Not Specified 12-23 15:47: 14 [facility] Warfarin Sodium Drug Allergy Active U Not Specified 12-23 15:47: 14 [facility] Quinidin e Sulfate Drug Allergy Active U Not Specified 12-23 15:47: 14 [facility] Linzess Drug Allergy Active U Not Specified 12-23 15:47: 14 [facility] Xarelto Drug Allergy Active U Not Specified 12-23 15:47: 14 [facility] Lyrica Drug Allergy Active U Not Specified 12-23 15:47: 14 [facility] Celebrex Drug Allergy Active U Not Specified 12-23 15:47: 14 [facility] Warfarin Sodium Drug Allergy Active U Not Specified 12-23 15:47: 14 [facility] Cymbalta Drug Allergy Active U Not Specified 12-23 15:47: 14 [facility] Levaquin Drug Allergy Active U Not Specified 12-23 15:47: 14 [facility] Quinidin e Sulfate Drug Allergy Active U Not Specified 12-23 15:47: 14 [facility] Linzess Drug Allergy Active U Not Specified 12-23 15:47: 14 [facility] Warfarin Sodium Drug Allergy Active U Not Specified 12-23 15:47: 14 [facility] Quinidin e Sulfate Drug Allergy Active U Not Specified 12-23 15:47: 14 [facility] Linzess Drug Allergy Active U Not Specified 12-23 15:47: 14 [facility] Warfarin Sodium Drug Allergy Active U Not Specified 12-23 15:47: 14 [facility] Quinidin e Sulfate Drug Allergy Active U Not Specified 12-23 15:47: 14 [facility] Linzess Drug Allergy Active U Not Specified 12-23 15:47: 14 [facility] Warfarin Sodium Drug Allergy Active U Not Specified 12-23 15:47: 14 [facility] Quinidin e Sulfate Drug Allergy Active U Not Specified 12-23 15:47: 14 [facility] Linzess Drug Allergy Active U Not Specified 12-23 15:47: 14 [facility] Warfarin Sodium Drug Allergy Active U Not Specified 12-23 15:47: 14 [facility] Quinidin e Sulfate Drug Allergy Active U Not Specified 12-23 15:47: 14 [facility] Quinidin e Sulfate Drug Allergy Active U Not Specified 07-12 00:50: 36 [facility] Linzess Drug Allergy Active U Not Specified 07-12 00:50: 36 [facility] Quinidin e Sulfate Drug Allergy Active U Not Specified 07-12 00:50: 36 [facility] Linzess Drug Allergy Active U Not Specified 07-12 00:50: 36 [facility] Quinidin e Sulfate Drug Allergy Active U Not Specified 07-12 00:50: 36 [facility] Linzess Drug Allergy Active U Not Specified 07-12 00:50: 36 [facility] Quinidin e Sulfate Drug Allergy Active U Not Specified 07-12 00:50: 36 [facility] Linzess Drug Allergy Active U Not Specified 07-12 00:50: 36 [facility] Quinidin e Sulfate Drug Allergy Active U Not Specified 07-12 00:50: 36 [facility] Linzess Drug Allergy Active U Not Specified 07-12 00:50: 36 [facility] Quinidin e Sulfate Drug Allergy Active U Not Specified 07-12 00:50: 36 [facility] Linzess Drug Allergy Active U Not Specified 07-12 00:50: 36 [facility] Quinidin e Sulfate Drug Allergy Active U Not Specified 07-12 00:50: 36 [facility] Linzess Drug Allergy Active U Not Specified 07-12 00:50: 36 [facility] Lyrica Drug Allergy Active U Not Specified 07-12 00:50: 35 [facility] Celebrex Drug Allergy Active U Not Specified 07-12 00:50: 35 [facility] Warfarin Sodium Drug Allergy Active U Not Specified 07-12 00:50: 35 [facility] Cymbalta Drug Allergy Active U Not Specified 07-12 00:50: 35 [facility] Levaquin Drug Allergy Active U Not Specified 07-12 00:50: 35 [facility] Warfarin Sodium Drug Allergy Active U Not Specified 07-12 00:50: 35 [facility] Warfarin Sodium Drug Allergy Active U Not Specified 07-12 00:50: 35 [facility] Warfarin Sodium Drug Allergy Active U Not Specified 07-12 00:50: 35 [facility] Warfarin Sodium Drug Allergy Active U Not Specified 07-12 00:50: 35 [facility] Warfarin Sodium Drug Allergy Active U Not Specified 07-12 00:50: 35 [facility] Warfarin Sodium Drug Allergy Active U Not Specified 07-12 00:50: 35 [facility] Xarelto Drug Allergy Active U Not Specified 07-12 00:50: 34 [facility] Unable to Assess UA Active 2020-06 18:41: 53 [facility] Unable to Assess UA Active 2020-06 0 17:35: 17 [facility] No Known Allergie s NA Active 2020-06 0 17:01: 06 [facility] No Known Allergie s NA Active 02-06 07:05: 07 [facility] No Known Allergie s NA Active 12-30 10:18: 46 [facility] No Known Allergie s NA Active 12-29 00:00: 51 [facility] No Known Allergie s NA Active 12-28 13:00: 09 [facility] No Known Allergie s NA Active 12-27 16:31: 37 [facility] No Known Allergie s NA Active 12-27 13:46: 29 [facility] No Known Allergie s NA Active 12-27 13:43: 38 [facility] warfarin DA Active MO 2-12 00:00: 00 [facility] levoflox acin DA Active MO 2-12 00:00: 00 [facility] duloxeti ne DA Active MO -12 00:00: 00 [facility] pregabal in DA Active MO 2-12 00:00: 00 [facility] rivaroxa ban DA Active MO 2-12 00:00: 00 [facility] heparin DA Active MO 2-12 00:00: 00 [facility] warfarin DA Active MO 2-12 00:00: 00 [facility] levoflox acin DA Active MO 0 2-12 00:00: 00 [facility] [place] [address] 2-12 00:00: 00 [facility] [place] [address] 2-12 00:00: 00 [facility] rivaroxa ban DA Active MO 07-22 00:00: 00 [facility] heparin DA Active MO 07-22 00:00: 00 [facility] Heparin Allergy to substanc e Active 08-16 00:00: 00 [facility] Warfarin Allergy to substanc e Active 08-16 00:00: 00 [facility] Levoflox acin Allergy to substanc e Active 08-16 00:00: 00 [facility] CI Pigment Blue 63 Allergy to substanc e Active 08-16 00:00: 00 [facility] Duloxeti ne Allergy to substanc e Active 08-16 00:00: 00 [facility] Pregabal in Allergy to substanc e Active 08-16 00:00: 00 [facility] Rivaroxa ban Allergy to substanc e Active 08-16 00:00: 00 [facility] QUININE DRUG INGREDI Active Low Rash 11-13 00:00: 00 [facility] Quinine Propensi ty to adverse reaction s to drug Active Rash 11-13 00:00: 00 [facility] Quinine Propensi ty to adverse reaction s Active Rash 11-13 00:00: 00 [facility] Social History Social Habit Start Date Stop Date Quantity Comments Source Gender identity [facility] Tobacco use and exposure 2023-05-16 00:00:00 2023-05-16 00:00:00 Smokeless tobacco non-user [facility] History of Social function 2023-05-09 00:00:00 2023-05-09 00:00:00 [facility] Exposure to SARS-CoV-2 (event) 2022-05-01 00:00:00 2022-05-11 14:06:00 Not sure [facility] Alcohol intake 2022-04-20 00:00:00 2022-04-20 00:00:00 Lifetime non-drinker (finding) [facility] History of tobacco use 1976-05-01 00:00:00 Cigarette Smoker [facility] Sex Assigned At 1935 00:00:00 1935 00:00:00 [facility] Smoking Status Start Date Stop Date Source Ex-smoker 2023-05-16 00:00:00 2023-05-16 00:00:[address] Medications Ordered Medication Name Filled Medication Name Start Date Stop Date Current Medication? Ordering Clinician Indication Dosage Frequency Signature (SIG) Comments Components Source FEXOFENADIN E 60 mg tablet 07-01 00:00: 00 Yes [id number] TAKE 1 TABLET BY MOUTH 2 TIMES DAILY IN THE MORNING & IN THE EVENING *NEEDS APPT* [facility] FEXOFENADIN E 60 mg tablet 0 07-01 00:00: 00 Yes [id number] TAKE 1 TABLET BY MOUTH 2 TIMES DAILY IN THE MORNING & IN THE EVENING *NEEDS APPT* [facility] FEXOFENADIN E 60 mg tablet 0 07-01 00:00: 00 Yes [id number] TAKE 1 TABLET BY MOUTH 2 TIMES DAILY IN THE MORNING & IN THE EVENING *NEEDS APPT* [facility] FEXOFENADIN E 60 mg tablet 0 07-01 00:00: 00 Yes [id number] TAKE 1 TABLET BY MOUTH 2 TIMES DAILY IN THE MORNING & IN THE EVENING *NEEDS APPT* [facility] FEXOFENADIN E 60 mg tablet 0 07-01 00:00: 00 Yes [id number] TAKE 1 TABLET BY MOUTH 2 TIMES DAILY IN THE MORNING & IN THE EVENING *NEEDS APPT* [facility] FEXOFENADIN E 60 mg tablet 0 07-01 00:00: 00 Yes [id number] TAKE 1 TABLET BY MOUTH 2 TIMES DAILY IN THE MORNING & IN THE EVENING *NEEDS APPT* [facility] FAMOTIDINE 20 mg tablet 2023-0 16 00:00: 00 Yes [id number] TAKE 1 TABLET BY MOUTH 2 TIMES DAILY IN THE MORNING & IN THE EVENING [facility] FAMOTIDINE 20 mg tablet 0 16 00:00: 00 Yes TAKE 1 TABLET BY MOUTH 2 TIMES DAILY IN THE MORNING & IN THE EVENING [facility] FAMOTIDINE 20 mg tablet 2023-0 16 00:00: 00 Yes TAKE 1 TABLET BY MOUTH 2 TIMES DAILY IN THE MORNING & IN THE EVENING [facility] FAMOTIDINE 20 mg tablet 2023-0 16 00:00: 00 Yes TAKE 1 TABLET BY MOUTH 2 TIMES DAILY IN THE MORNING & IN THE EVENING [facility] FAMOTIDINE 20 mg tablet 0 16 00:00: 00 Yes TAKE 1 TABLET BY MOUTH 2 TIMES DAILY IN THE MORNING & IN THE EVENING [facility] FAMOTIDINE 20 mg tablet 2023-0 16 00:00: 00 Yes TAKE 1 TABLET BY MOUTH 2 TIMES DAILY IN THE MORNING & IN THE EVENING [facility] FAMOTIDINE 20 mg tablet 0 06-25 00:00: 00 Yes TAKE 1 TABLET BY MOUTH 2 TIMES DAILY IN THE MORNING & IN THE EVENING [facility] FEXOFENADIN E 60 mg tablet 2022-06 00:00: 00 Yes [id number] TAKE 1 TABLET BY MOUTH 2 TIMES DAILY IN THE MORNING & IN THE EVENING *NEEDS APPT* [facility] FEXOFENADIN E 60 mg tablet 2022-06 00:00: 00 Yes [id number] TAKE 1 TABLET BY MOUTH 2 TIMES DAILY IN THE MORNING & IN THE EVENING *NEEDS APPT* [facility] FEXOFENADIN E 60 mg tablet 2022-06 00:00: 00 Yes [id number] TAKE 1 TABLET BY MOUTH 2 TIMES DAILY IN THE MORNING & IN THE EVENING *NEEDS APPT* [facility] FEXOFENADIN E 60 mg tablet 2022-06 00:00: 00 Yes [id number] TAKE 1 TABLET BY MOUTH 2 TIMES DAILY IN THE MORNING & IN THE EVENING *NEEDS APPT* [facility] divalproex 500 mg EC tablet 2022-06 2- 00:00: 00 Yes [id number] 500mg Take 1 tablet by mouth every 12 (twelve) hours. [facility] rivastigmin e tartrate 4.5 mg capsule 2022-06 00:00: 00 Yes [id number] 4.5mg Take 1 capsule by mouth every morning and evening. [facility] divalproex 500 mg EC tablet 2022-06 00:00: 00 Yes [id number] 500mg Take 1 tablet by mouth every 12 (twelve) hours. [facility] rivastigmin e tartrate 4.5 mg capsule 2022-06 00:00: 00 Yes [id number] 4.5mg Take 1 capsule by mouth every morning and evening. [facility] divalproex 500 mg EC tablet 2022-06 00:00: 00 Yes [id number] 500mg Take 1 tablet by mouth every 12 (twelve) hours. [facility] rivastigmin e tartrate 4.5 mg capsule 2022-06 00:00: 00 Yes [id number] 4.5mg Take 1 capsule by mouth every morning and evening. [facility] divalproex 500 mg EC tablet 2022-06 00:00: 00 Yes [id number] 500mg Take 1 tablet by mouth every 12 (twelve) hours. [facility] rivastigmin e tartrate 4.5 mg capsule 2022-06 00:00: 00 Yes [id number] 4.5mg Take 1 capsule by mouth every morning and evening. [facility] divalproex 500 mg EC tablet 2022-06 00:00: 00 Yes [id number] 500mg Take 1 tablet by mouth every 12 (twelve) hours. [facility] rivastigmin e tartrate 4.5 mg capsule 2022-06 00:00: 00 Yes [id number] 4.5mg Take 1 capsule by mouth every morning and evening. [facility] divalproex 500 mg EC tablet 2022-06 00:00: 00 Yes [id number] 500mg Take 1 tablet by mouth every 12 (twelve) hours. [facility] rivastigmin e tartrate 4.5 mg capsule 2022-06 00:00: 00 Yes [id number] 4.5mg Take 1 capsule by mouth every morning and evening. [facility] divalproex 500 mg EC tablet 2022-06 00:00: 00 Yes [id number] 500mg Take 1 tablet by mouth every 12 (twelve) hours. [facility] rivastigmin e tartrate 4.5 mg capsule 2022-06 00:00: 00 Yes [id number] 4.5mg Take 1 capsule by mouth every morning and evening. [facility] divalproex 500 mg EC tablet 2022-06 00:00: 00 Yes [id number] 500mg Take 1 tablet by mouth every 12 (twelve) hours. [facility] rivastigmin e tartrate 4.5 mg capsule 2022-06 00:00: 00 Yes [id number] 4.5mg Take 1 capsule by mouth every morning and evening. [facility] divalproex 500 mg EC tablet 2022-06 00:00: 00 Yes [id number] 500mg Take 1 tablet by mouth every 12 (twelve) hours. [facility] rivastigmin e tartrate 4.5 mg capsule 2022-06 00:00: 00 Yes [id number] 4.5mg Take 1 capsule by mouth every morning and evening. [facility] divalproex 500 mg EC tablet 2022-06 00:00: 00 Yes [id number] 500mg Take 1 tablet by mouth every 12 (twelve) hours. [facility] rivastigmin e tartrate 4.5 mg capsule 2022-06 00:00: 00 Yes [id number] 4.5mg Take 1 capsule by mouth every morning and evening. [facility] divalproex 500 mg EC tablet 2022-06 00:00: 00 Yes [id number] 500mg Take 1 tablet by mouth every 12 (twelve) hours. [facility] rivastigmin e tartrate 4.5 mg capsule 2022-06 00:00: 00 Yes [id number] 4.5mg Take 1 capsule by mouth every morning and evening. [facility] divalproex 500 mg EC tablet 2022-06 00:00: 00 Yes [id number] 500mg Take 1 tablet by mouth every 12 (twelve) hours. [facility] rivastigmin e tartrate 4.5 mg capsule 2022-06 00:00: 00 Yes [id number] 4.5mg Take 1 capsule by mouth every morning and evening. [facility] FEXOFENADIN E 60 mg tablet 2022-06 00:00: 00 Yes [id number] TAKE 1 TABLET BY MOUTH 2 TIMES DAILY IN THE MORNING & IN THE EVENING *NEEDS APPT* [facility] FEXOFENADIN E 60 mg tablet 2022-06 00:00: 00 Yes [id number] TAKE 1 TABLET BY MOUTH 2 TIMES DAILY IN THE MORNING & IN THE EVENING *NEEDS APPT* [facility] FEXOFENADIN E 60 mg tablet 2022-06 00:00: 00 Yes [id number] TAKE 1 TABLET BY MOUTH 2 TIMES DAILY IN THE MORNING & IN THE EVENING *NEEDS APPT* [facility] FEXOFENADIN E 60 mg tablet 2022-06 00:00: 00 Yes [id number] TAKE 1 TABLET BY MOUTH 2 TIMES DAILY IN THE MORNING & IN THE EVENING *NEEDS APPT* [facility] FEXOFENADIN E 60 mg tablet 2022-06 00:00: 00 05-30 00:00 :00 No [id number] TAKE 1 TABLET BY MOUTH 2 TIMES DAILY IN THE MORNING & IN THE EVENING *NEEDS APPT* [facility] losartan 100 mg tablet 2022-06 00:00: 00 Yes [id number] Take 100mg qAM and 50mg qPM [facility] hydrALAZINE 50 mg tablet 2022-06 00:00: 00 Yes [id number] 50mg Take 1 tablet by mouth 3 (three) times daily as needed (Take 1 Tab TID PRN if BP > 160/90). [facility] furosemide 20 mg tablet 2022-06 00:00: 00 Yes [id number] 20mg Take 1 tablet by mouth in the morning. [facility] fluticasone propionate (FLOVENT HFA) 110 mcg/actuati on inhaler 2022-06 00:00: 00 Yes [id number] 2{puff} Inhale 2 Puffs every 12 (twelve) hours. [facility] apixaban (ELIQUIS) 2.5 mg tablet 2022-06 00:00: 00 Yes 1358 2.5mg Take 1 tablet by mouth in the morning and 1 tablet in the evening. Indication s: atrial fibrillati on [facility] amLODIPine 5 mg tablet 2022-06 00:00: 00 Yes [id number] TAKE 1 TABLET BY MOUTH IN THE MORNING *NEEDS APPT* [facility] amitriptyli ne 10 mg tablet 2022-06 00:00: 00 Yes [id number] 10mg Take 1 tablet by mouth at bedtime. [facility] albuterol 90 mcg/actuati on inhaler 2022-06 00:00: 00 Yes [id number] SHAKE WELL INHALE 1 PUFF(S) INTO LUNGS 3 TIMES DAILY NEEDED *NEED LABS-MAKE AN APPT* [facility] albuterol 2.5 mg/0.5 mL nebulizer solution 2022-06 00:00: 00 Yes [id number] 2.5mg Inhale 0.5 mL every 6 (six) hours as needed for Wheezing. [facility] albuterol 2.5 mg /3 mL (0.083 %) nebulizer solution 2022-06 00:00: 00 Yes [id number] 2.5mg Inhale 3 mL every 6 (six) hours as needed for Wheezing or Shortness of Breath. [facility] ipratropium 0.02 % nebulizer solution 2022-06 00:00: 00 Yes [id number] .5mg Inhale 2.5 mL every 6 (six) hours as needed for Wheezing or Shortness of Breath. [facility] ezetimibe 10 mg tablet 2022-06 00:00: 00 Yes [id number] 10mg Take 1 tablet by mouth in the morning. [facility] busPIRone 7.5 mg tablet 2022-06 00:00: 00 Yes [id number] 3.75mg Take 0.5 tablets by mouth in the morning and 0.5 tablets in the evening. [facility] losartan 100 mg tablet 2022-06 00:00: 00 Yes [id number] Take 100mg qAM and 50mg qPM [facility] hydrALAZINE 50 mg tablet 2022-06 00:00: 00 Yes [id number] 50mg Take 1 tablet by mouth 3 (three) times daily as needed (Take 1 Tab TID PRN if BP > 160/90). [facility] furosemide 20 mg tablet 2022-06 00:00: 00 Yes [id number] 20mg Take 1 tablet by mouth in the morning. [facility] fluticasone propionate (FLOVENT HFA) 110 mcg/actuati on inhaler 2022-06 00:00: 00 Yes [id number] 2{puff} Inhale 2 Puffs every 12 (twelve) hours. [facility] apixaban (ELIQUIS) 2.5 mg tablet 2022-06 00:00: 00 Yes 1358 2.5mg Take 1 tablet by mouth in the morning and 1 tablet in the evening. Indication s: atrial fibrillati on [facility] amLODIPine 5 mg tablet 2022-06 00:00: 00 Yes [id number] TAKE 1 TABLET BY MOUTH IN THE MORNING *NEEDS APPT* [facility] amitriptyli ne 10 mg tablet 2022-06 00:00: 00 Yes [id number] 10mg Take 1 tablet by mouth at bedtime. [facility] albuterol 90 mcg/actuati on inhaler 2022-06 00:00: 00 Yes [id number] SHAKE WELL INHALE 1 PUFF(S) INTO LUNGS 3 TIMES DAILY NEEDED *NEED LABS-MAKE AN APPT* [facility] albuterol 2.5 mg/0.5 mL nebulizer solution 2022-06 00:00: 00 Yes [id number] 2.5mg Inhale 0.5 mL every 6 (six) hours as needed for Wheezing. [facility] albuterol 2.5 mg /3 mL (0.083 %) nebulizer solution 2022-06 00:00: 00 Yes [id number] 2.5mg Inhale 3 mL every 6 (six) hours as needed for Wheezing or Shortness of Breath. [facility] ipratropium 0.02 % nebulizer solution 2022-06 00:00: 00 Yes [id number] .5mg Inhale 2.5 mL every 6 (six) hours as needed for Wheezing or Shortness of Breath. [facility] ezetimibe 10 mg tablet 2022-06 00:00: 00 Yes [id number] 10mg Take 1 tablet by mouth in the morning. [facility] busPIRone 7.5 mg tablet 2022-06 00:00: 00 Yes [id number] 3.75mg Take 0.5 tablets by mouth in the morning and 0.5 tablets in the evening. [facility] losartan 100 mg tablet 2022-06 00:00: 00 Yes [id number] Take 100mg qAM and 50mg qPM [facility] hydrALAZINE 50 mg tablet 2022-06 00:00: 00 Yes [id number] 50mg Take 1 tablet by mouth 3 (three) times daily as needed (Take 1 Tab TID PRN if BP > 160/90). [facility] furosemide 20 mg tablet 2022-06 00:00: 00 Yes [id number] 20mg Take 1 tablet by mouth in the morning. [facility] fluticasone propionate (FLOVENT HFA) 110 mcg/actuati on inhaler 2022-06 00:00: 00 Yes [id number] 2{puff} Inhale 2 Puffs every 12 (twelve) hours. [facility] apixaban (ELIQUIS) 2.5 mg tablet 2022-06 00:00: 00 Yes 1358 2.5mg Take 1 tablet by mouth in the morning and 1 tablet in the evening. Indication s: atrial fibrillati on [facility] amLODIPine 5 mg tablet 2022-06 00:00: 00 Yes [id number] TAKE 1 TABLET BY MOUTH IN THE MORNING *NEEDS APPT* [facility] amitriptyli ne 10 mg tablet 2022-06 00:00: 00 Yes [id number] 10mg Take 1 tablet by mouth at bedtime. [facility] albuterol 90 mcg/actuati on inhaler 2022-06 00:00: 00 Yes [id number] SHAKE WELL INHALE 1 PUFF(S) INTO LUNGS 3 TIMES DAILY NEEDED *NEED LABS-MAKE AN APPT* [facility] albuterol 2.5 mg/0.5 mL nebulizer solution 2022-06 00:00: 00 Yes [id number] 2.5mg Inhale 0.5 mL every 6 (six) hours as needed for Wheezing. [facility] albuterol 2.5 mg /3 mL (0.083 %) nebulizer solution 2022-06 00:00: 00 Yes [id number] 2.5mg Inhale 3 mL every 6 (six) hours as needed for Wheezing or Shortness of Breath. [facility] ipratropium 0.02 % nebulizer solution 2022-06 00:00: 00 Yes [id number] .5mg Inhale 2.5 mL every 6 (six) hours as needed for Wheezing or Shortness of Breath. [facility] ezetimibe 10 mg tablet 2022-06 00:00: 00 Yes [id number] 10mg Take 1 tablet by mouth in the morning. [facility] busPIRone 7.5 mg tablet 2022-06 00:00: 00 Yes [id number] 3.75mg Take 0.5 tablets by mouth in the morning and 0.5 tablets in the evening. [facility] losartan 100 mg tablet 2022-06 00:00: 00 Yes [id number] Take 100mg qAM and 50mg qPM [facility] hydrALAZINE 50 mg tablet 2022-06 00:00: 00 Yes [id number] 50mg Take 1 tablet by mouth 3 (three) times daily as needed (Take 1 Tab TID PRN if BP > 160/90). [facility] furosemide 20 mg tablet 2022-06 00:00: 00 Yes [id number] 20mg Take 1 tablet by mouth in the morning. [facility] fluticasone propionate (FLOVENT HFA) 110 mcg/actuati on inhaler 2022-06 00:00: 00 Yes [id number] 2{puff} Inhale 2 Puffs every 12 (twelve) hours. [facility] apixaban (ELIQUIS) 2.5 mg tablet 2022-06 00:00: 00 Yes 1358 2.5mg Take 1 tablet by mouth in the morning and 1 tablet in the evening. Indication s: atrial fibrillati on [facility] amLODIPine 5 mg tablet 2022-06 00:00: 00 Yes [id number] TAKE 1 TABLET BY MOUTH IN THE MORNING *NEEDS APPT* [facility] amitriptyli ne 10 mg tablet 2022-06 00:00: 00 Yes [id number] 10mg Take 1 tablet by mouth at bedtime. [facility] albuterol 90 mcg/actuati on inhaler 2022-06 00:00: 00 Yes [id number] SHAKE WELL INHALE 1 PUFF(S) INTO LUNGS 3 TIMES DAILY NEEDED *NEED LABS-MAKE AN APPT* [facility] albuterol 2.5 mg/0.5 mL nebulizer solution 2022-06 00:00: 00 Yes [id number] 2.5mg Inhale 0.5 mL every 6 (six) hours as needed for Wheezing. [facility] albuterol 2.5 mg /3 mL (0.083 %) nebulizer solution 2022-06 00:00: 00 Yes [id number] 2.5mg Inhale 3 mL every 6 (six) hours as needed for Wheezing or Shortness of Breath. [facility] ipratropium 0.02 % nebulizer solution 2022-06 00:00: 00 Yes [id number] .5mg Inhale 2.5 mL every 6 (six) hours as needed for Wheezing or Shortness of Breath. [facility] ezetimibe 10 mg tablet 2022-06 00:00: 00 Yes [id number] 10mg Take 1 tablet by mouth in the morning. [facility] busPIRone 7.5 mg tablet 2022-06 00:00: 00 Yes [id number] 3.75mg Take 0.5 tablets by mouth in the morning and 0.5 tablets in the evening. [facility] losartan 100 mg tablet 2022-06 00:00: 00 Yes [id number] Take 100mg qAM and 50mg qPM [facility] hydrALAZINE 50 mg tablet 2022-06 00:00: 00 Yes [id number] 50mg Take 1 tablet by mouth 3 (three) times daily as needed (Take 1 Tab TID PRN if BP > 160/90). [facility] furosemide 20 mg tablet 2022-06 00:00: 00 Yes [id number] 20mg Take 1 tablet by mouth in the morning. [facility] fluticasone propionate (FLOVENT HFA) 110 mcg/actuati on inhaler 2022-06 00:00: 00 Yes [id number] 2{puff} Inhale 2 Puffs every 12 (twelve) hours. [facility] apixaban (ELIQUIS) 2.5 mg tablet 2022-06 00:00: 00 Yes 1358 2.5mg Take 1 tablet by mouth in the morning and 1 tablet in the evening. Indication s: atrial fibrillati on [facility] amLODIPine 5 mg tablet 2022-06 00:00: 00 Yes [id number] TAKE 1 TABLET BY MOUTH IN THE MORNING *NEEDS APPT* [facility] amitriptyli ne 10 mg tablet 2022-06 00:00: 00 Yes [id number] 10mg Take 1 tablet by mouth at bedtime. [facility] albuterol 90 mcg/actuati on inhaler 2022-06 00:00: 00 Yes [id number] SHAKE WELL INHALE 1 PUFF(S) INTO LUNGS 3 TIMES DAILY NEEDED *NEED LABS-MAKE AN APPT* [facility] albuterol 2.5 mg/0.5 mL nebulizer solution 2022-06 00:00: 00 Yes [id number] 2.5mg Inhale 0.5 mL every 6 (six) hours as needed for Wheezing. [facility] albuterol 2.5 mg /3 mL (0.083 %) nebulizer solution 2022-06 00:00: 00 Yes [id number] 2.5mg Inhale 3 mL every 6 (six) hours as needed for Wheezing or Shortness of Breath. [facility] ipratropium 0.02 % nebulizer solution 2022-06 00:00: 00 Yes [id number] .5mg Inhale 2.5 mL every 6 (six) hours as needed for Wheezing or Shortness of Breath. [facility] ezetimibe 10 mg tablet 2022-06 00:00: 00 Yes [id number] 10mg Take 1 tablet by mouth in the morning. [facility] busPIRone 7.5 mg tablet 2022-06 00:00: 00 Yes [id number] 3.75mg Take 0.5 tablets by mouth in the morning and 0.5 tablets in the evening. [facility] losartan 100 mg tablet 2022-06 00:00: 00 Yes [id number] Take 100mg qAM and 50mg qPM [facility] hydrALAZINE 50 mg tablet 2022-06 00:00: 00 Yes [id number] 50mg Take 1 tablet by mouth 3 (three) times daily as needed (Take 1 Tab TID PRN if BP > 160/90). [facility] furosemide 20 mg tablet 2022-06 00:00: 00 Yes [id number] 20mg Take 1 tablet by mouth in the morning. [facility] fluticasone propionate (FLOVENT HFA) 110 mcg/actuati on inhaler 2022-06 00:00: 00 Yes [id number] 2{puff} Inhale 2 Puffs every 12 (twelve) hours. [facility] apixaban (ELIQUIS) 2.5 mg tablet 2022-06 00:00: 00 Yes 1358 2.5mg Take 1 tablet by mouth in the morning and 1 tablet in the evening. Indication s: atrial fibrillati on [facility] amLODIPine 5 mg tablet 2022-06 00:00: 00 Yes [id number] TAKE 1 TABLET BY MOUTH IN THE MORNING *NEEDS APPT* [facility] amitriptyli ne 10 mg tablet 2022-06 00:00: 00 Yes [id number] 10mg Take 1 tablet by mouth at bedtime. [facility] albuterol 90 mcg/actuati on inhaler 2022-06 00:00: 00 Yes [id number] SHAKE WELL INHALE 1 PUFF(S) INTO LUNGS 3 TIMES DAILY NEEDED *NEED LABS-MAKE AN APPT* [facility] albuterol 2.5 mg/0.5 mL nebulizer solution 2022-06 00:00: 00 Yes [id number] 2.5mg Inhale 0.5 mL every 6 (six) hours as needed for Wheezing. [facility] albuterol 2.5 mg /3 mL (0.083 %) nebulizer solution 2022-06 00:00: 00 Yes [id number] 2.5mg Inhale 3 mL every 6 (six) hours as needed for Wheezing or Shortness of Breath. [facility] ipratropium 0.02 % nebulizer solution 2022-06 00:00: 00 Yes [id number] .5mg Inhale 2.5 mL every 6 (six) hours as needed for Wheezing or Shortness of Breath. [facility] ezetimibe 10 mg tablet 2022-06 00:00: 00 Yes [id number] 10mg Take 1 tablet by mouth in the morning. [facility] busPIRone 7.5 mg tablet 2022-06 00:00: 00 Yes [id number] 3.75mg Take 0.5 tablets by mouth in the morning and 0.5 tablets in the evening. [facility] losartan 100 mg tablet 2022-06 00:00: 00 Yes [id number] Take 100mg qAM and 50mg qPM [facility] hydrALAZINE 50 mg tablet 2022-06 00:00: 00 Yes [id number] 50mg Take 1 tablet by mouth 3 (three) times daily as needed (Take 1 Tab TID PRN if BP > 160/90). [facility] furosemide 20 mg tablet 2022-06 00:00: 00 Yes [id number] 20mg Take 1 tablet by mouth in the morning. [facility] fluticasone propionate (FLOVENT HFA) 110 mcg/actuati on inhaler 2022-06 00:00: 00 Yes [id number] 2{puff} Inhale 2 Puffs every 12 (twelve) hours. [facility] apixaban (ELIQUIS) 2.5 mg tablet 2022-06 00:00: 00 Yes 1358 2.5mg Take 1 tablet by mouth in the morning and 1 tablet in the evening. Indication s: atrial fibrillati on [facility] amLODIPine 5 mg tablet 2022-06 00:00: 00 Yes [id number] TAKE 1 TABLET BY MOUTH IN THE MORNING *NEEDS APPT* [facility] amitriptyli ne 10 mg tablet 2022-06 00:00: 00 Yes [id number] 10mg Take 1 tablet by mouth at bedtime. [facility] albuterol 90 mcg/actuati on inhaler 2022-06 00:00: 00 Yes [id number] SHAKE WELL INHALE 1 PUFF(S) INTO LUNGS 3 TIMES DAILY NEEDED *NEED LABS-MAKE AN APPT* [facility] albuterol 2.5 mg/0.5 mL nebulizer solution 2022-06 00:00: 00 Yes [id number] 2.5mg Inhale 0.5 mL every 6 (six) hours as needed for Wheezing. [facility] albuterol 2.5 mg /3 mL (0.083 %) nebulizer solution 2022-06 00:00: 00 Yes [id number] 2.5mg Inhale 3 mL every 6 (six) hours as needed for Wheezing or Shortness of Breath. [facility] ipratropium 0.02 % nebulizer solution 2022-06 00:00: 00 Yes [id number] .5mg Inhale 2.5 mL every 6 (six) hours as needed for Wheezing or Shortness of Breath. [facility] ezetimibe 10 mg tablet 2022-06 00:00: 00 Yes [id number] 10mg Take 1 tablet by mouth in the morning. [facility] busPIRone 7.5 mg tablet 2022-06 00:00: 00 Yes [id number] 3.75mg Take 0.5 tablets by mouth in the morning and 0.5 tablets in the evening. [facility] losartan 100 mg tablet 2022-06 00:00: 00 Yes [id number] Take 100mg qAM and 50mg qPM [facility] hydrALAZINE 50 mg tablet 2022-06 00:00: 00 Yes [id number] 50mg Take 1 tablet by mouth 3 (three) times daily as needed (Take 1 Tab TID PRN if BP > 160/90). [facility] furosemide 20 mg tablet 2022-06 00:00: 00 Yes [id number] 20mg Take 1 tablet by mouth in the morning. [facility] fluticasone propionate (FLOVENT HFA) 110 mcg/actuati on inhaler 2022-06 00:00: 00 Yes [id number] 2{puff} Inhale 2 Puffs every 12 (twelve) hours. [facility] apixaban (ELIQUIS) 2.5 mg tablet 2022-06 00:00: 00 Yes 1358 2.5mg Take 1 tablet by mouth in the morning and 1 tablet in the evening. Indication s: atrial fibrillati on [facility] amLODIPine 5 mg tablet 2022-06 00:00: 00 Yes [id number] TAKE 1 TABLET BY MOUTH IN THE MORNING *NEEDS APPT* [facility] amitriptyli ne 10 mg tablet 2022-06 00:00: 00 Yes [id number] 10mg Take 1 tablet by mouth at bedtime. [facility] albuterol 90 mcg/actuati on inhaler 2022-06 00:00: 00 Yes [id number] SHAKE WELL INHALE 1 PUFF(S) INTO LUNGS 3 TIMES DAILY NEEDED *NEED LABS-MAKE AN APPT* [facility] albuterol 2.5 mg/0.5 mL nebulizer solution 2022-06 00:00: 00 Yes [id number] 2.5mg Inhale 0.5 mL every 6 (six) hours as needed for Wheezing. [facility] albuterol 2.5 mg /3 mL (0.083 %) nebulizer solution 2022-06 00:00: 00 Yes [id number] 2.5mg Inhale 3 mL every 6 (six) hours as needed for Wheezing or Shortness of Breath. [facility] ipratropium 0.02 % nebulizer solution 2022-06 00:00: 00 Yes [id number] .5mg Inhale 2.5 mL every 6 (six) hours as needed for Wheezing or Shortness of Breath. [facility] ezetimibe 10 mg tablet 2022-06 00:00: 00 Yes [id number] 10mg Take 1 tablet by mouth in the morning. [facility] busPIRone 7.5 mg tablet 2022-06 00:00: 00 Yes [id number] 3.75mg Take 0.5 tablets by mouth in the morning and 0.5 tablets in the evening. [facility] losartan 100 mg tablet 2022-06 00:00: 00 Yes [id number] Take 100mg qAM and 50mg qPM [facility] hydrALAZINE 50 mg tablet 2022-06 00:00: 00 Yes [id number] 50mg Take 1 tablet by mouth 3 (three) times daily as needed (Take 1 Tab TID PRN if BP > 160/90). [facility] furosemide 20 mg tablet 2022-06 00:00: 00 Yes [id number] 20mg Take 1 tablet by mouth in the morning. [facility] fluticasone propionate (FLOVENT HFA) 110 mcg/actuati on inhaler 2022-06 00:00: 00 Yes [id number] 2{puff} Inhale 2 Puffs every 12 (twelve) hours. [facility] apixaban (ELIQUIS) 2.5 mg tablet 2022-06 00:00: 00 Yes 1358 2.5mg Take 1 tablet by mouth in the morning and 1 tablet in the evening. Indication s: atrial fibrillati on [facility] amLODIPine 5 mg tablet 2022-06 00:00: 00 Yes [id number] TAKE 1 TABLET BY MOUTH IN THE MORNING *NEEDS APPT* [facility] amitriptyli ne 10 mg tablet 2022-06 00:00: 00 Yes [id number] 10mg Take 1 tablet by mouth at bedtime. [facility] albuterol 90 mcg/actuati on inhaler 2022-06 00:00: 00 Yes [id number] SHAKE WELL INHALE 1 PUFF(S) INTO LUNGS 3 TIMES DAILY NEEDED *NEED LABS-MAKE AN APPT* [facility] albuterol 2.5 mg/0.5 mL nebulizer solution 2022-06 00:00: 00 Yes [id number] 2.5mg Inhale 0.5 mL every 6 (six) hours as needed for Wheezing. [facility] albuterol 2.5 mg /3 mL (0.083 %) nebulizer solution 2022-06 00:00: 00 Yes [id number] 2.5mg Inhale 3 mL every 6 (six) hours as needed for Wheezing or Shortness of Breath. [facility] ipratropium 0.02 % nebulizer solution 2022-06 00:00: 00 Yes [id number] .5mg Inhale 2.5 mL every 6 (six) hours as needed for Wheezing or Shortness of Breath. [facility] ezetimibe 10 mg tablet 2022-06 00:00: 00 Yes [id number] 10mg Take 1 tablet by mouth in the morning. [facility] busPIRone 7.5 mg tablet 2022-06 00:00: 00 Yes [id number] 3.75mg Take 0.5 tablets by mouth in the morning and 0.5 tablets in the evening. [facility] losartan 100 mg tablet 2022-06 00:00: 00 Yes [id number] Take 100mg qAM and 50mg qPM [facility] hydrALAZINE 50 mg tablet 2022-06 00:00: 00 Yes [id number] 50mg Take 1 tablet by mouth 3 (three) times daily as needed (Take 1 Tab TID PRN if BP > 160/90). [facility] furosemide 20 mg tablet 2022-06 00:00: 00 Yes [id number] 20mg Take 1 tablet by mouth in the morning. [facility] fluticasone propionate (FLOVENT HFA) 110 mcg/actuati on inhaler 2022-06 00:00: 00 Yes [id number] 2{puff} Inhale 2 Puffs every 12 (twelve) hours. [facility] apixaban (ELIQUIS) 2.5 mg tablet 2022-06 00:00: 00 Yes 1358 2.5mg Take 1 tablet by mouth in the morning and 1 tablet in the evening. Indication s: atrial fibrillati on [facility] amLODIPine 5 mg tablet 2022-06 00:00: 00 Yes [id number] TAKE 1 TABLET BY MOUTH IN THE MORNING *NEEDS APPT* [facility] amitriptyli ne 10 mg tablet 2022-06 00:00: 00 Yes [id number] 10mg Take 1 tablet by mouth at bedtime. [facility] albuterol 90 mcg/actuati on inhaler 2022-06 00:00: 00 Yes [id number] SHAKE WELL INHALE 1 PUFF(S) INTO LUNGS 3 TIMES DAILY NEEDED *NEED LABS-MAKE AN APPT* [facility] albuterol 2.5 mg/0.5 mL nebulizer solution 2022-06 00:00: 00 Yes [id number] 2.5mg Inhale 0.5 mL every 6 (six) hours as needed for Wheezing. [facility] albuterol 2.5 mg /3 mL (0.083 %) nebulizer solution 2022-06 00:00: 00 Yes [id number] 2.5mg Inhale 3 mL every 6 (six) hours as needed for Wheezing or Shortness of Breath. [facility] ipratropium 0.02 % nebulizer solution 2022-06 00:00: 00 Yes [id number] .5mg Inhale 2.5 mL every 6 (six) hours as needed for Wheezing or Shortness of Breath. [facility] ezetimibe 10 mg tablet 2022-06 00:00: 00 Yes [id number] 10mg Take 1 tablet by mouth in the morning. [facility] busPIRone 7.5 mg tablet 2022-06 00:00: 00 Yes [id number] 3.75mg Take 0.5 tablets by mouth in the morning and 0.5 tablets in the evening. [facility] losartan 100 mg tablet 2022-06 00:00: 00 Yes [id number] Take 100mg qAM and 50mg qPM [facility] hydrALAZINE 50 mg tablet 2022-06 00:00: 00 Yes [id number] 50mg Take 1 tablet by mouth 3 (three) times daily as needed (Take 1 Tab TID PRN if BP > 160/90). [facility] furosemide 20 mg tablet 2022-06 00:00: 00 Yes [id number] 20mg Take 1 tablet by mouth in the morning. [facility] fluticasone propionate (FLOVENT HFA) 110 mcg/actuati on inhaler 2022-06 00:00: 00 Yes [id number] 2{puff} Inhale 2 Puffs every 12 (twelve) hours. [facility] apixaban (ELIQUIS) 2.5 mg tablet 2022-06 00:00: 00 Yes 1358 2.5mg Take 1 tablet by mouth in the morning and 1 tablet in the evening. Indication s: atrial fibrillati on [facility] amLODIPine 5 mg tablet 2022-06 00:00: 00 Yes [id number] TAKE 1 TABLET BY MOUTH IN THE MORNING *NEEDS APPT* [facility] amitriptyli ne 10 mg tablet 2022-06 00:00: 00 Yes [id number] 10mg Take 1 tablet by mouth at bedtime. [facility] albuterol 90 mcg/actuati on inhaler 2022-06 00:00: 00 Yes [id number] SHAKE WELL INHALE 1 PUFF(S) INTO LUNGS 3 TIMES DAILY NEEDED *NEED LABS-MAKE AN APPT* [facility] albuterol 2.5 mg/0.5 mL nebulizer solution 2022-06 00:00: 00 Yes [id number] 2.5mg Inhale 0.5 mL every 6 (six) hours as needed for Wheezing. [facility] albuterol 2.5 mg /3 mL (0.083 %) nebulizer solution 2022-06 00:00: 00 Yes [id number] 2.5mg Inhale 3 mL every 6 (six) hours as needed for Wheezing or Shortness of Breath. [facility] ipratropium 0.02 % nebulizer solution 2022-06 00:00: 00 Yes [id number] .5mg Inhale 2.5 mL every 6 (six) hours as needed for Wheezing or Shortness of Breath. [facility] ezetimibe 10 mg tablet 2022-06 00:00: 00 Yes [id number] 10mg Take 1 tablet by mouth in the morning. [facility] busPIRone 7.5 mg tablet 2022-06 00:00: 00 Yes [id number] 3.75mg Take 0.5 tablets by mouth in the morning and 0.5 tablets in the evening. [facility] losartan 100 mg tablet 2022-06 00:00: 00 Yes [id number] Take 100mg qAM and 50mg qPM [facility] hydrALAZINE 50 mg tablet 2022-06 00:00: 00 Yes [id number] 50mg Take 1 tablet by mouth 3 (three) times daily as needed (Take 1 Tab TID PRN if BP > 160/90). [facility] furosemide 20 mg tablet 2022-06 00:00: 00 Yes [id number] 20mg Take 1 tablet by mouth in the morning. [facility] fluticasone propionate (FLOVENT HFA) 110 mcg/actuati on inhaler 2022-06 00:00: 00 Yes [id number] 2{puff} Inhale 2 Puffs every 12 (twelve) hours. [facility] apixaban (ELIQUIS) 2.5 mg tablet 2022-06 00:00: 00 Yes [id number] 2.5mg Take 1 tablet by mouth in the morning and 1 tablet in the evening. Indication s: atrial fibrillati on [facility] amLODIPine 5 mg tablet 2022-06 00:00: 00 Yes [id number] TAKE 1 TABLET BY MOUTH IN THE MORNING *NEEDS APPT* [facility] amitriptyli ne 10 mg tablet 2022-06 00:00: 00 Yes [id number] 10mg Take 1 tablet by mouth at bedtime. [facility] albuterol 90 mcg/actuati on inhaler 2022-06 00:00: 00 Yes [id number] SHAKE WELL INHALE 1 PUFF(S) INTO LUNGS 3 TIMES DAILY NEEDED *NEED LABS-MAKE AN APPT* [facility] albuterol 2.5 mg/0.5 mL nebulizer solution 2022-06 00:00: 00 Yes [id number] 2.5mg Inhale 0.5 mL every 6 (six) hours as needed for Wheezing. [facility] albuterol 2.5 mg /3 mL (0.083 %) nebulizer solution 2022-06 00:00: 00 Yes [id number] 2.5mg Inhale 3 mL every 6 (six) hours as needed for Wheezing or Shortness of Breath. [facility] ipratropium 0.02 % nebulizer solution 2022-06 00:00: 00 Yes [id number] .5mg Inhale 2.5 mL every 6 (six) hours as needed for Wheezing or Shortness of Breath. [facility] ezetimibe 10 mg tablet 2022-06 00:00: 00 Yes [id number] 10mg Take 1 tablet by mouth in the morning. [facility] busPIRone 7.5 mg tablet 2022-06 00:00: 00 Yes [id number] 3.75mg Take 0.5 tablets by mouth in the morning and 0.5 tablets in the evening. [facility] losartan 100 mg tablet 2022-06 00:00: 00 Yes [id number] Take 100mg qAM and 50mg qPM [facility] hydrALAZINE 50 mg tablet 2022-06 00:00: 00 Yes [id number] 50mg Take 1 tablet by mouth 3 (three) times daily as needed (Take 1 Tab TID PRN if BP > 160/90). [facility] furosemide 20 mg tablet 2022-06 00:00: 00 Yes [id number] 20mg Take 1 tablet by mouth in the morning. [facility] fluticasone propionate (FLOVENT HFA) 110 mcg/actuati on inhaler 2022-06 00:00: 00 Yes [id number] 2{puff} Inhale 2 Puffs every 12 (twelve) hours. [facility] apixaban (ELIQUIS) 2.5 mg tablet 2022-06 00:00: 00 Yes 1358 2.5mg Take 1 tablet by mouth in the morning and 1 tablet in the evening. Indication s: atrial fibrillati on [facility] amLODIPine 5 mg tablet 2022-06 00:00: 00 Yes [id number] TAKE 1 TABLET BY MOUTH IN THE MORNING *NEEDS APPT* [facility] amitriptyli ne 10 mg tablet 2022-06 00:00: 00 Yes [id number] 10mg Take 1 tablet by mouth at bedtime. [facility] albuterol 90 mcg/actuati on inhaler 2022-06 00:00: 00 Yes [id number] SHAKE WELL INHALE 1 PUFF(S) INTO LUNGS 3 TIMES DAILY NEEDED *NEED LABS-MAKE AN APPT* [facility] albuterol 2.5 mg/0.5 mL nebulizer solution 2022-06 00:00: 00 Yes [id number] 2.5mg Inhale 0.5 mL every 6 (six) hours as needed for Wheezing. [facility] albuterol 2.5 mg /3 mL (0.083 %) nebulizer solution 2022-06 00:00: 00 Yes [id number] 2.5mg Inhale 3 mL every 6 (six) hours as needed for Wheezing or Shortness of Breath. [facility] ipratropium 0.02 % nebulizer solution 2022-06 00:00: 00 Yes [id number] .5mg Inhale 2.5 mL every 6 (six) hours as needed for Wheezing or Shortness of Breath. [facility] ezetimibe 10 mg tablet 2022-06 00:00: 00 Yes [id number] 10mg Take 1 tablet by mouth in the morning. [facility] busPIRone 7.5 mg tablet 2022-06 00:00: 00 Yes [id number] 3.75mg Take 0.5 tablets by mouth in the morning and 0.5 tablets in the evening. [facility] losartan 100 mg tablet 2022-06 00:00: 00 Yes [id number] Take 100mg qAM and 50mg qPM [facility] hydrALAZINE 50 mg tablet 2022-06 00:00: 00 Yes [id number] 50mg Take 1 tablet by mouth 3 (three) times daily as needed (Take 1 Tab TID PRN if BP > 160/90). [facility] furosemide 20 mg tablet 2022-06 00:00: 00 Yes [id number] 20mg Take 1 tablet by mouth in the morning. [facility] fluticasone propionate (FLOVENT HFA) 110 mcg/actuati on inhaler 2022-06 00:00: 00 Yes [id number] 2{puff} Inhale 2 Puffs every 12 (twelve) hours. [facility] apixaban (ELIQUIS) 2.5 mg tablet 2022-06 00:00: 00 Yes 1358 2.5mg Take 1 tablet by mouth in the morning and 1 tablet in the evening. Indication s: atrial fibrillati on [facility] amLODIPine 5 mg tablet 2022-06 00:00: 00 Yes [id number] TAKE 1 TABLET BY MOUTH IN THE MORNING *NEEDS APPT* [facility] amitriptyli ne 10 mg tablet 2022-06 00:00: 00 Yes [id number] 10mg Take 1 tablet by mouth at bedtime. [facility] albuterol 90 mcg/actuati on inhaler 2022-06 00:00: 00 Yes [id number] SHAKE WELL INHALE 1 PUFF(S) INTO LUNGS 3 TIMES DAILY NEEDED *NEED LABS-MAKE AN APPT* [facility] albuterol 2.5 mg/0.5 mL nebulizer solution 2022-06 00:00: 00 Yes [id number] 2.5mg Inhale 0.5 mL every 6 (six) hours as needed for Wheezing. [facility] albuterol 2.5 mg /3 mL (0.083 %) nebulizer solution 2022-06 00:00: 00 Yes [id number] 2.5mg Inhale 3 mL every 6 (six) hours as needed for Wheezing or Shortness of Breath. [facility] ipratropium 0.02 % nebulizer solution 2022-06 00:00: 00 Yes [id number] .5mg Inhale 2.5 mL every 6 (six) hours as needed for Wheezing or Shortness of Breath. [facility] ezetimibe 10 mg tablet 2022-06 00:00: 00 Yes [id number] 10mg Take 1 tablet by mouth in the morning. [facility] busPIRone 7.5 mg tablet 2022-06 00:00: 00 Yes [id number] 3.75mg Take 0.5 tablets by mouth in the morning and 0.5 tablets in the evening. [facility] losartan 100 mg tablet 2022-06 00:00: 00 Yes [id number] Take 100mg qAM and 50mg qPM [facility] hydrALAZINE 50 mg tablet 2022-06 00:00: 00 Yes [id number] 50mg Take 1 tablet by mouth 3 (three) times daily as needed (Take 1 Tab TID PRN if BP > 160/90). [facility] furosemide 20 mg tablet 2022-06 00:00: 00 Yes [id number] 20mg Take 1 tablet by mouth in the morning. [facility] fluticasone propionate (FLOVENT HFA) 110 mcg/actuati on inhaler 2022-06 00:00: 00 Yes [id number] 2{puff} Inhale 2 Puffs every 12 (twelve) hours. [facility] apixaban (ELIQUIS) 2.5 mg tablet 2022-06 00:00: 00 Yes 1358 2.5mg Take 1 tablet by mouth in the morning and 1 tablet in the evening. Indication s: atrial fibrillati on [facility] amLODIPine 5 mg tablet 2022-06 00:00: 00 Yes [id number] TAKE 1 TABLET BY MOUTH IN THE MORNING *NEEDS APPT* [facility] amitriptyli ne 10 mg tablet 2022-06 00:00: 00 Yes [id number] 10mg Take 1 tablet by mouth at bedtime. [facility] albuterol 90 mcg/actuati on inhaler 2022-06 00:00: 00 Yes [id number] SHAKE WELL INHALE 1 PUFF(S) INTO LUNGS 3 TIMES DAILY NEEDED *NEED LABS-MAKE AN APPT* [facility] albuterol 2.5 mg/0.5 mL nebulizer solution 2022-06 00:00: 00 Yes [id number] 2.5mg Inhale 0.5 mL every 6 (six) hours as needed for Wheezing. [facility] albuterol 2.5 mg /3 mL (0.083 %) nebulizer solution 2022-06 00:00: 00 Yes [id number] 2.5mg Inhale 3 mL every 6 (six) hours as needed for Wheezing or Shortness of Breath. [facility] ipratropium 0.02 % nebulizer solution 2022-06 00:00: 00 Yes [id number] .5mg Inhale 2.5 mL every 6 (six) hours as needed for Wheezing or Shortness of Breath. [facility] ezetimibe 10 mg tablet 2022-06 00:00: 00 Yes [id number] 10mg Take 1 tablet by mouth in the morning. [facility] busPIRone 7.5 mg tablet 2022-06 00:00: 00 Yes [id number] 3.75mg Take 0.5 tablets by mouth in the morning and 0.5 tablets in the evening. [facility] losartan 100 mg tablet 2022-06 00:00: 00 Yes [id number] Take 100mg qAM and 50mg qPM [facility] hydrALAZINE 50 mg tablet 2022-06 00:00: 00 Yes [id number] 50mg Take 1 tablet by mouth 3 (three) times daily as needed (Take 1 Tab TID PRN if BP > 160/90). [facility] furosemide 20 mg tablet 2022-06 00:00: 00 Yes [id number] 20mg Take 1 tablet by mouth in the morning. [facility] fluticasone propionate (FLOVENT HFA) 110 mcg/actuati on inhaler 2022-06 00:00: 00 Yes [id number] 2{puff} Inhale 2 Puffs every 12 (twelve) hours. [facility] apixaban (ELIQUIS) 2.5 mg tablet 2022-06 00:00: 00 Yes 1358 2.5mg Take 1 tablet by mouth in the morning and 1 tablet in the evening. Indication s: atrial fibrillati on [facility] amLODIPine 5 mg tablet 2022-06 00:00: 00 Yes [id number] TAKE 1 TABLET BY MOUTH IN THE MORNING *NEEDS APPT* [facility] amitriptyli ne 10 mg tablet 2022-06 00:00: 00 Yes [id number] 10mg Take 1 tablet by mouth at bedtime. [facility] albuterol 90 mcg/actuati on inhaler 2022-06 00:00: 00 Yes [id number] SHAKE WELL INHALE 1 PUFF(S) INTO LUNGS 3 TIMES DAILY NEEDED *NEED LABS-MAKE AN APPT* [facility] albuterol 2.5 mg/0.5 mL nebulizer solution 2022-06 00:00: 00 Yes [id number] 2.5mg Inhale 0.5 mL every 6 (six) hours as needed for Wheezing. [facility] albuterol 2.5 mg /3 mL (0.083 %) nebulizer solution 2022-06 00:00: 00 Yes [id number] 2.5mg Inhale 3 mL every 6 (six) hours as needed for Wheezing or Shortness of Breath. [facility] ipratropium 0.02 % nebulizer solution 2022-06 00:00: 00 Yes [id number] .5mg Inhale 2.5 mL every 6 (six) hours as needed for Wheezing or Shortness of Breath. [facility] ezetimibe 10 mg tablet 2022-06 00:00: 00 Yes [id number] 10mg Take 1 tablet by mouth in the morning. [facility] busPIRone 7.5 mg tablet 2022-06 00:00: 00 Yes [id number] 3.75mg Take 0.5 tablets by mouth in the morning and 0.5 tablets in the evening. [facility] losartan 100 mg tablet 2022-06 00:00: 00 Yes [id number] Take 100mg qAM and 50mg qPM [facility] hydrALAZINE 50 mg tablet 2022-06 00:00: 00 Yes [id number] 50mg Take 1 tablet by mouth 3 (three) times daily as needed (Take 1 Tab TID PRN if BP > 160/90). [facility] furosemide 20 mg tablet 2022-06 00:00: 00 Yes [id number] 20mg Take 1 tablet by mouth in the morning. [facility] fluticasone propionate (FLOVENT HFA) 110 mcg/actuati on inhaler 2022-06 00:00: 00 Yes [id number] 2{puff} Inhale 2 Puffs every 12 (twelve) hours. [facility] apixaban (ELIQUIS) 2.5 mg tablet 2022-06 00:00: 00 Yes 1358 2.5mg Take 1 tablet by mouth in the morning and 1 tablet in the evening. Indication s: atrial fibrillati on [facility] amLODIPine 5 mg tablet 2022-06 00:00: 00 Yes [id number] TAKE 1 TABLET BY MOUTH IN THE MORNING *NEEDS APPT* [facility] amitriptyli ne 10 mg tablet 2022-06 00:00: 00 Yes [id number] 10mg Take 1 tablet by mouth at bedtime. [facility] albuterol 90 mcg/actuati on inhaler 2022-06 00:00: 00 Yes [id number] SHAKE WELL INHALE 1 PUFF(S) INTO LUNGS 3 TIMES DAILY NEEDED *NEED LABS-MAKE AN APPT* [facility] albuterol 2.5 mg/0.5 mL nebulizer solution 2022-06 00:00: 00 Yes [id number] 2.5mg Inhale 0.5 mL every 6 (six) hours as needed for Wheezing. [facility] albuterol 2.5 mg /3 mL (0.083 %) nebulizer solution 2022-06 00:00: 00 Yes [id number] 2.5mg Inhale 3 mL every 6 (six) hours as needed for Wheezing or Shortness of Breath. [facility] ipratropium 0.02 % nebulizer solution 2022-06 00:00: 00 Yes [id number] .5mg Inhale 2.5 mL every 6 (six) hours as needed for Wheezing or Shortness of Breath. [facility] ezetimibe 10 mg tablet 2022-06 00:00: 00 Yes [id number] 10mg Take 1 tablet by mouth in the morning. [facility] busPIRone 7.5 mg tablet 2022-06 00:00: 00 Yes [id number] 3.75mg Take 0.5 tablets by mouth in the morning and 0.5 tablets in the evening. [facility] metoprolol succinate XL 100 mg 24 hr tablet 2022-06 00:00: 00 05-09 00:00 :00 No [id number] TAKE 1 TABLET BY MOUTH IN THE MORNING WITH FOOD [facility] busPIRone 7.5 mg tablet 2022-06 00:00: 00 05-09 00:00 :00 No [id number] 7.5mg Take 1 tablet by mouth in the morning and 1 tablet in the evening. [facility] metoprolol succinate XL 100 mg 24 hr tablet 2022-06 00:00: 00 05-09 00:00 :00 No [id number] TAKE 1 TABLET BY MOUTH IN THE MORNING WITH FOOD [facility] busPIRone 7.5 mg tablet 2022-06 00:00: 00 05-09 00:00 :00 No [id number] 7.5mg Take 1 tablet by mouth in the morning and 1 tablet in the evening. [facility] ALBUTEROL 90 mcg/actuati on inhaler 2022-06 00:00: 00 Yes [id number] SHAKE WELL INHALE 1 PUFF(S) INTO LUNGS 3 TIMES DAILY NEEDED *NEED LABS-MAKE AN APPT* [facility] ALBUTEROL 90 mcg/actuati on inhaler 2022-06 00:00: 00 Yes [id number] SHAKE WELL INHALE 1 PUFF(S) INTO LUNGS 3 TIMES DAILY NEEDED *NEED LABS-MAKE AN APPT* [facility] ALBUTEROL 90 mcg/actuati on inhaler 2022-06 00:00: 00 Yes [id number] SHAKE WELL INHALE 1 PUFF(S) INTO LUNGS 3 TIMES DAILY NEEDED *NEED LABS-MAKE AN APPT* [facility] ALBUTEROL 90 mcg/actuati on inhaler 2022-06 00:00: 00 Yes [id number] SHAKE WELL INHALE 1 PUFF(S) INTO LUNGS 3 TIMES DAILY NEEDED *NEED LABS-MAKE AN APPT* [facility] ALBUTEROL 90 mcg/actuati on inhaler 2022-06 00:00: 00 Yes [id number] SHAKE WELL INHALE 1 PUFF(S) INTO LUNGS 3 TIMES DAILY NEEDED *NEED LABS-MAKE AN APPT* [facility] ALBUTEROL 90 mcg/actuati on inhaler 2022-06 00:00: 00 Yes [id number] SHAKE WELL INHALE 1 PUFF(S) INTO LUNGS 3 TIMES DAILY NEEDED *NEED LABS-MAKE AN APPT* [facility] ALBUTEROL 90 mcg/actuati on inhaler 2022-06 00:00: 00 Yes [id number] SHAKE WELL INHALE 1 PUFF(S) INTO LUNGS 3 TIMES DAILY NEEDED *NEED LABS-MAKE AN APPT* [facility] ALBUTEROL 90 mcg/actuati on inhaler 2022-06 00:00: 00 Yes [id number] SHAKE WELL INHALE 1 PUFF(S) INTO LUNGS 3 TIMES DAILY NEEDED *NEED LABS-MAKE AN APPT* [facility] ALBUTEROL 90 mcg/actuati on inhaler 2022-06 00:00: 00 05-09 00:00 :00 No [id number] SHAKE WELL INHALE 1 PUFF(S) INTO LUNGS 3 TIMES DAILY NEEDED *NEED LABS-MAKE AN APPT* [facility] ALBUTEROL 90 mcg/actuati on inhaler 2022-06 00:00: 00 05-09 00:00 :00 No [id number] SHAKE WELL INHALE 1 PUFF(S) INTO LUNGS 3 TIMES DAILY NEEDED *NEED LABS-MAKE AN APPT* [facility] ALBUTEROL 90 mcg/actuati on inhaler 2022-06 00:00: 00 05-09 00:00 :00 No [id number] SHAKE WELL INHALE 1 PUFF(S) INTO LUNGS 3 TIMES DAILY NEEDED *NEED LABS-MAKE AN APPT* [facility] AMLODIPINE 5 mg tablet 2022-06 00:00: 00 Yes [id number] TAKE 1 TABLET BY MOUTH IN THE MORNING *NEEDS APPT* [facility] AMLODIPINE 5 mg tablet 2022-06 00:00: 00 Yes [id number] TAKE 1 TABLET BY MOUTH IN THE MORNING *NEEDS APPT* [facility] AMLODIPINE 5 mg tablet 2022-06 00:00: 00 Yes [id number] TAKE 1 TABLET BY MOUTH IN THE MORNING *NEEDS APPT* [facility] AMLODIPINE 5 mg tablet 2022-06 00:00: 00 Yes [id number] TAKE 1 TABLET BY MOUTH IN THE MORNING *NEEDS APPT* [facility] AMLODIPINE 5 mg tablet 2022-06 00:00: 00 Yes [id number] TAKE 1 TABLET BY MOUTH IN THE MORNING *NEEDS APPT* [facility] AMLODIPINE 5 mg tablet 2022-06 00:00: 00 Yes [id number] TAKE 1 TABLET BY MOUTH IN THE MORNING *NEEDS APPT* [facility] AMLODIPINE 5 mg tablet 2022-06 00:00: 00 Yes [id number] TAKE 1 TABLET BY MOUTH IN THE MORNING *NEEDS APPT* [facility] AMLODIPINE 5 mg tablet 2022-06 00:00: 00 Yes [id number] TAKE 1 TABLET BY MOUTH IN THE MORNING *NEEDS APPT* [facility] AMLODIPINE 5 mg tablet 2022-06 00:00: 00 Yes [id number] TAKE 1 TABLET BY MOUTH IN THE MORNING *NEEDS APPT* [facility] AMLODIPINE 5 mg tablet 2022-06 00:00: 00 05-09 00:00 :00 No [id number] TAKE 1 TABLET BY MOUTH IN THE MORNING *NEEDS APPT* [facility] AMLODIPINE 5 mg tablet 2022-06 00:00: 00 05-09 00:00 :00 No [id number] TAKE 1 TABLET BY MOUTH IN THE MORNING *NEEDS APPT* [facility] AMLODIPINE 5 mg tablet 2022-06 00:00: 00 05-09 00:00 :00 No [id number] TAKE 1 TABLET BY MOUTH IN THE MORNING *NEEDS APPT* [facility] carvediloL 12.5 mg tablet 2022-06 00:00: 00 Yes [id number] 12.5mg Take 1 tablet by mouth in the morning and 1 tablet in the evening. Take with meals. [facility] carvediloL 12.5 mg tablet 2022-06 00:00: 00 Yes [id number] 12.5mg Take 1 tablet by mouth in the morning and 1 tablet in the evening. Take with meals. [facility] carvediloL 12.5 mg tablet 2022-06 00:00: 00 Yes [id number] 12.5mg Take 1 tablet by mouth in the morning and 1 tablet in the evening. Take with meals. [facility] carvediloL 12.5 mg tablet 2022-06 00:00: 00 Yes [id number] 12.5mg Take 1 tablet by mouth in the morning and 1 tablet in the evening. Take with meals. [facility] carvediloL 12.5 mg tablet 2022-06 00:00: 00 Yes [id number] 12.5mg Take 1 tablet by mouth in the morning and 1 tablet in the evening. Take with meals. [facility] carvediloL 12.5 mg tablet 2022-06 00:00: 00 Yes [id number] 12.5mg Take 1 tablet by mouth in the morning and 1 tablet in the evening. Take with meals. [facility] carvediloL 12.5 mg tablet 2022-06 00:00: 00 Yes [id number] 12.5mg Take 1 tablet by mouth in the morning and 1 tablet in the evening. Take with meals. [facility] carvediloL 12.5 mg tablet 2022-06 00:00: 00 Yes [id number] 12.5mg Take 1 tablet by mouth in the morning and 1 tablet in the evening. Take with meals. [facility] carvediloL 12.5 mg tablet 2022-06 00:00: 00 Yes [id number] 12.5mg Take 1 tablet by mouth in the morning and 1 tablet in the evening. Take with meals. [facility] carvediloL 12.5 mg tablet 2022-06 00:00: 00 Yes [id number] 12.5mg Take 1 tablet by mouth in the morning and 1 tablet in the evening. Take with meals. [facility] carvediloL 12.5 mg tablet 2022-06 00:00: 00 Yes [id number] 12.5mg Take 1 tablet by mouth in the morning and 1 tablet in the evening. Take with meals. [facility] carvediloL 12.5 mg tablet 2022-06 00:00: 00 Yes [id number] 12.5mg Take 1 tablet by mouth in the morning and 1 tablet in the evening. Take with meals. [facility] carvediloL 12.5 mg tablet 2022-06 00:00: 00 Yes [id number] 12.5mg Take 1 tablet by mouth in the morning and 1 tablet in the evening. Take with meals. [facility] carvediloL 12.5 mg tablet 2022-06 00:00: 00 Yes [id number] 12.5mg Take 1 tablet by mouth in the morning and 1 tablet in the evening. Take with meals. [facility] carvediloL 12.5 mg tablet 2022-06 00:00: 00 Yes [id number] 12.5mg Take 1 tablet by mouth in the morning and 1 tablet in the evening. Take with meals. [facility] carvediloL 12.5 mg tablet 2022-06 00:00: 00 Yes [id number] 12.5mg Take 1 tablet by mouth in the morning and 1 tablet in the evening. Take with meals. [facility] carvediloL 12.5 mg tablet 2022-06 00:00: 00 Yes [id number] 12.5mg Take 1 tablet by mouth in the morning and 1 tablet in the evening. Take with meals. [facility] FAMOTIDINE 20 mg tablet 2022-06 00:00: 00 Yes [id number] TAKE 1 TABLET BY MOUTH 2 TIMES DAILY IN THE MORNING & IN THE EVENING [facility] FEXOFENADIN E 60 mg tablet 2022-06 00:00: 00 Yes [id number] TAKE 1 TABLET BY MOUTH 2 TIMES DAILY IN THE MORNING & IN THE EVENING *NEEDS APPT* [facility] FAMOTIDINE 20 mg tablet 2022-06 00:00: 00 Yes [id number] TAKE 1 TABLET BY MOUTH 2 TIMES DAILY IN THE MORNING & IN THE EVENING [facility] FEXOFENADIN E 60 mg tablet 2022-06 00:00: 00 Yes [id number] TAKE 1 TABLET BY MOUTH 2 TIMES DAILY IN THE MORNING & IN THE EVENING *NEEDS APPT* [facility] FAMOTIDINE 20 mg tablet 2022-06 00:00: 00 Yes [id number] TAKE 1 TABLET BY MOUTH 2 TIMES DAILY IN THE MORNING & IN THE EVENING [facility] FEXOFENADIN E 60 mg tablet 2022-06 0 00:00: 00 Yes [id number] TAKE 1 TABLET BY MOUTH 2 TIMES DAILY IN THE MORNING & IN THE EVENING *NEEDS APPT* [facility] FAMOTIDINE 20 mg tablet 2022-06 0 00:00: 00 Yes TAKE 1 TABLET BY MOUTH 2 TIMES DAILY IN THE MORNING & IN THE EVENING [facility] FEXOFENADIN E 60 mg tablet 2022-06 030 00:00: 00 Yes [id number] TAKE 1 TABLET BY MOUTH 2 TIMES DAILY IN THE MORNING & IN THE EVENING *NEEDS APPT* [facility] FAMOTIDINE 20 mg tablet 2022-06 030 00:00: 00 Yes TAKE 1 TABLET BY MOUTH 2 TIMES DAILY IN THE MORNING & IN THE EVENING [facility] FEXOFENADIN E 60 mg tablet 2022-06 030 00:00: 00 Yes [id number] TAKE 1 TABLET BY MOUTH 2 TIMES DAILY IN THE MORNING & IN THE EVENING *NEEDS APPT* [facility] FAMOTIDINE 20 mg tablet 2022-06 030 00:00: 00 Yes TAKE 1 TABLET BY MOUTH 2 TIMES DAILY IN THE MORNING & IN THE EVENING [facility] FEXOFENADIN E 60 mg tablet 2022- 0 00:00: 00 Yes [id number] TAKE 1 TABLET BY MOUTH 2 TIMES DAILY IN THE MORNING & IN THE EVENING *NEEDS APPT* [facility] FAMOTIDINE 20 mg tablet 2022-06 030 00:00: 00 Yes TAKE 1 TABLET BY MOUTH 2 TIMES DAILY IN THE MORNING & IN THE EVENING [facility] FEXOFENADIN E 60 mg tablet 2022-06 030 00:00: 00 Yes [id number] TAKE 1 TABLET BY MOUTH 2 TIMES DAILY IN THE MORNING & IN THE EVENING *NEEDS APPT* [facility] FAMOTIDINE 20 mg tablet 2022-06 030 00:00: 00 Yes TAKE 1 TABLET BY MOUTH 2 TIMES DAILY IN THE MORNING & IN THE EVENING [facility] FEXOFENADIN E 60 mg tablet 2022- 030 00:00: 00 Yes [id number] TAKE 1 TABLET BY MOUTH 2 TIMES DAILY IN THE MORNING & IN THE EVENING *NEEDS APPT* [facility] FAMOTIDINE 20 mg tablet 2022- 030 00:00: 00 Yes TAKE 1 TABLET BY MOUTH 2 TIMES DAILY IN THE MORNING & IN THE EVENING [facility] FEXOFENADIN E 60 mg tablet 2022-06 0-30 00:00: 00 Yes [id number] TAKE 1 TABLET BY MOUTH 2 TIMES DAILY IN THE MORNING & IN THE EVENING *NEEDS APPT* [facility] FAMOTIDINE 20 mg tablet 2022-06 0 00:00: 00 Yes [id number] TAKE 1 TABLET BY MOUTH 2 TIMES DAILY IN THE MORNING & IN THE EVENING [facility] FEXOFENADIN E 60 mg tablet 2022-06 0 00:00: 00 Yes [id number] TAKE 1 TABLET BY MOUTH 2 TIMES DAILY IN THE MORNING & IN THE EVENING *NEEDS APPT* [facility] FAMOTIDINE 20 mg tablet 2022-06 0 00:00: 00 Yes TAKE 1 TABLET BY MOUTH 2 TIMES DAILY IN THE MORNING & IN THE EVENING [facility] FEXOFENADIN E 60 mg tablet 2022-06 0 00:00: 00 Yes [id number] TAKE 1 TABLET BY MOUTH 2 TIMES DAILY IN THE MORNING & IN THE EVENING *NEEDS APPT* [facility] FAMOTIDINE 20 mg tablet 2022-06 0 00:00: 00 Yes TAKE 1 TABLET BY MOUTH 2 TIMES DAILY IN THE MORNING & IN THE EVENING [facility] FAMOTIDINE 20 mg tablet 2022-06 0 00:00: 00 Yes TAKE 1 TABLET BY MOUTH 2 TIMES DAILY IN THE MORNING & IN THE EVENING [facility] FAMOTIDINE 20 mg tablet 2022-06 0 00:00: 00 Yes TAKE 1 TABLET BY MOUTH 2 TIMES DAILY IN THE MORNING & IN THE EVENING [facility] FAMOTIDINE 20 mg tablet 2022-06 0 00:00: 00 Yes TAKE 1 TABLET BY MOUTH 2 TIMES DAILY IN THE MORNING & IN THE EVENING [facility] FAMOTIDINE 20 mg tablet 2022-06 0 00:00: 00 Yes TAKE 1 TABLET BY MOUTH 2 TIMES DAILY IN THE MORNING & IN THE EVENING [facility] FAMOTIDINE 20 mg tablet 2022- 0 00:00: 00 Yes TAKE 1 TABLET BY MOUTH 2 TIMES DAILY IN THE MORNING & IN THE EVENING [facility] FAMOTIDINE 20 mg tablet 2022-06 030 00:00: 00 Yes [id number] TAKE 1 TABLET BY MOUTH 2 TIMES DAILY IN THE MORNING & IN THE EVENING [facility] FAMOTIDINE 20 mg tablet 2022-06 0 00:00: 00 Yes [id number] TAKE 1 TABLET BY MOUTH 2 TIMES DAILY IN THE MORNING & IN THE EVENING [facility] FAMOTIDINE 20 mg tablet 2022-06 0 00:00: 00 Yes [id number] TAKE 1 TABLET BY MOUTH 2 TIMES DAILY IN THE MORNING & IN THE EVENING [facility] FAMOTIDINE 20 mg tablet 2022-06 030 00:00: 00 Yes [id number] TAKE 1 TABLET BY MOUTH 2 TIMES DAILY IN THE MORNING & IN THE EVENING [facility] FAMOTIDINE 20 mg tablet 2022-06 0 00:00: 00 Yes [id number] TAKE 1 TABLET BY MOUTH 2 TIMES DAILY IN THE MORNING & IN THE EVENING [facility] FAMOTIDINE 20 mg tablet 2022-06 00:00: 00 06-25 00:00 :00 No [id number] TAKE 1 TABLET BY MOUTH 2 TIMES DAILY IN THE MORNING & IN THE EVENING [facility] FEXOFENADIN E 60 mg tablet 2022-06 00:00: 00 05-10 00:00 :00 No [id number] TAKE 1 TABLET BY MOUTH 2 TIMES DAILY IN THE MORNING & IN THE EVENING *NEEDS APPT* [facility] FEXOFENADIN E 60 mg tablet 2022-06 0 00:00: 00 05-10 00:00 :00 No [id number] TAKE 1 TABLET BY MOUTH 2 TIMES DAILY IN THE MORNING & IN THE EVENING *NEEDS APPT* [facility] FEXOFENADIN E 60 mg tablet 2022-06 0 00:00: 00 05-10 00:00 :00 No [id number] TAKE 1 TABLET BY MOUTH 2 TIMES DAILY IN THE MORNING & IN THE EVENING *NEEDS APPT* [facility] AMLODIPINE 5 mg tablet 2022-06 019 00:00: 00 Yes [id number] 5mg TAKE 1 TABLET BY MOUTH IN THE MORNING [facility] FEXOFENADIN E 60 mg tablet 2022-06 0-19 00:00: 00 Yes [id number] TAKE 1 TABLET BY MOUTH 2 TIMES DAILY IN THE MORNING & IN THE EVENING [facility] AMLODIPINE 5 mg tablet 2022-06 0-19 00:00: 00 Yes [id number] 5mg TAKE 1 TABLET BY MOUTH IN THE MORNING [facility] AMLODIPINE 5 mg tablet 2022-06 0- 00:00: 00 Yes [id number] 5mg TAKE 1 TABLET BY MOUTH IN THE MORNING [facility] AMLODIPINE 5 mg tablet 2022-06 019 00:00: 00 04-22 00:00 :00 No [id number] 5mg TAKE 1 TABLET BY MOUTH IN THE MORNING [facility] FEXOFENADIN E 60 mg tablet 2022-06- 00:00: 00 04-08 00:00 :00 No [id number] TAKE 1 TABLET BY MOUTH 2 TIMES DAILY IN THE MORNING & IN THE EVENING [facility] divalproex 500 mg EC tablet 2022-06 016 00:00: 00 Yes [id number] 500mg TAKE 1 TABLET BY MOUTH EVERY 12 HOURS [facility] divalproex 500 mg EC tablet 2022-06 016 00:00: 00 Yes [id number] 500mg TAKE 1 TABLET BY MOUTH EVERY 12 HOURS [facility] divalproex 500 mg EC tablet 2022-06 016 00:00: 00 Yes [id number] 500mg TAKE 1 TABLET BY MOUTH EVERY 12 HOURS [facility] divalproex 500 mg EC tablet 2022-06 016 00:00: 00 Yes [id number] 500mg TAKE 1 TABLET BY MOUTH EVERY 12 HOURS [facility] divalproex 500 mg EC tablet 2022-06 0-16 00:00: 00 Yes [id number] 500mg TAKE 1 TABLET BY MOUTH EVERY 12 HOURS [facility] divalproex 500 mg EC tablet 2022-06 0-16 00:00: 00 Yes [id number] 500mg TAKE 1 TABLET BY MOUTH EVERY 12 HOURS [facility] divalproex 500 mg EC tablet 2022-06 0-16 00:00: 00 Yes [id number] 500mg TAKE 1 TABLET BY MOUTH EVERY 12 HOURS [facility] divalproex 500 mg EC tablet 2022-06 0-16 00:00: 00 Yes [id number] 500mg TAKE 1 TABLET BY MOUTH [facility] 20[facility] 0-16 00:00: 00 Yes [id number] 500mg TAKE 1 TABLET BY MOUTH EVERY 12 HOURS [facility] divalproex 500 mg EC tablet 2022-06 0-16 00:00: 00 Yes [id number] 500mg TAKE 1 TABLET BY MOUTH EVERY 12 HOURS [facility] divalproex 500 mg EC tablet 2022-06 0-16 00:00: 00 Yes [id number] 500mg TAKE 1 TABLET BY MOUTH EVERY 12 [facility]RS [facility] 2022-06 0-16 00:00: 00 Yes [id number] 500mg TAKE 1 TABLET BY MOUTH EVERY 12 [facility]RS [facility] tablet 2022-06 016 00:00: 00 Yes [id number] 500mg TAKE 1 TABLET BY MOUTH EVERY [facility] tablet 2022-06 0-16 00:00: 00 Yes [id number] 500mg TAKE 1 TABLET BY MOUTH EVERY 12 HOURS [facility] divalproex 500 mg EC tablet 2022-06 0-16 00:00: 00 Yes [id number] 500mg TAKE 1 TABLET BY MOUTH EVERY 12 [facility]RS [facility] EC tablet 2022-06 0-16 00:00: 00 Yes [id number] 500mg TAKE 1 TABLET BY MOUTH EVERY 12 HOURS [facility] divalproex 500 mg EC tablet 2022-06 0-16 00:00: 00 Yes [id number] 500mg TAKE 1 TABLET BY MOUTH EVERY 12 HOURS [facility] EC tablet 2022-06 0-16 00:00: 00 05-16 00:00 :00 No [id number] 500mg TAKE 1 TABLET BY MOUTH EVERY 12 HOURS [facility] divalproex 500 mg EC tablet 2022-06 0-16 00:00: 00 05-16 00:00 :00 No [id number] 500mg TAKE 1 TABLET BY MOUTH EVERY 12 HOURS [facility] iopamidol (ISOVUE 370-500 mL) injection 72 mL 2022-06 0-10 17:30: 00 03-19 16:39 :00 No [id number] 72mL 72 mL, Intravenou s, ONCE, 1 dose, On Sat03/19/23 at 1230, Routine [facility] divalproex (DEPAKOTE) 500 mg EC tablet 0 8-18 00:00: 00 Yes [id number] 500mg Take 1 tablet by mouth every 12 (twelve) hours. [facility] rivastigmin e tartrate 3 mg capsule -18 00:00: 00 Yes [id number] 3mg Take 1 capsule by mouth every morning and evening. [facility] divalproex (DEPAKOTE) 500 mg EC tablet 18 00:00: 00 Yes [id number] 500mg Take 1 tablet by mouth every 12 (twelve) hours. [facility] rivastigmin e tartrate 3 mg capsule 2022-0 8-18 00:00: 00 Yes [id number] 3mg Take 1 capsule by mouth every morning and evening. [facility] divalproex (DEPAKOTE) 500 mg EC tablet 0 8-18 00:00: 00 Yes [id number] 500mg Take 1 tablet by mouth every 12 (twelve) hours. [facility] rivastigmin e tartrate 3 mg capsule 0 8-18 00:00: 00 Yes [id number] 3mg Take 1 capsule by mouth every morning and evening. [facility] divalproex (DEPAKOTE) 500 mg EC tablet 0 8-18 00:00: 00 Yes [id number] 500mg Take 1 tablet by mouth every 12 (twelve) hours. [facility] rivastigmin e tartrate 3 mg capsule 2022-0 8-18 00:00: 00 Yes [id number] 3mg Take 1 capsule by mouth every morning and evening. [facility] divalproex (DEPAKOTE) 500 mg EC tablet 2022-0 8-18 00:00: 00 Yes [id number] 500mg Take 1 tablet by mouth every 12 (twelve) hours. [facility] rivastigmin e tartrate 3 mg capsule 3-0 8-18 00:00: 00 Yes [id number] 3mg Take 1 capsule by mouth every morning and evening. [facility] divalproex (DEPAKOTE) 500 mg EC tablet 2022-0 8-18 00:00: 00 Yes [id number] 500mg Take 1 tablet by mouth every 12 (twelve) hours. [facility] rivastigmin e tartrate 3 mg capsule 2022-0 8-18 00:00: 00 Yes [id number] 3mg Take 1 capsule by mouth every morning and evening. [facility] rivastigmin e tartrate 3 mg capsule 3-0 8-18 00:00: 00 Yes [id number] 3mg Take 1 capsule by mouth every morning and evening. [facility] rivastigmin e tartrate 3 mg capsule 3-0 8-18 00:00: 00 Yes [id number] 3mg Take 1 capsule by mouth every morning and evening. [facility] rivastigmin e tartrate 3 mg capsule 3-0 8-18 00:00: 00 Yes [id number] 3mg Take 1 capsule by mouth every morning and evening. [facility] rivastigmin e tartrate 3 mg capsule 3-0 8-18 00:00: 00 Yes [id number] 3mg Take 1 capsule by mouth every morning and evening. [facility] rivastigmin e tartrate 3 mg capsule 3-0 8-18 00:00: 00 Yes [id number] 3mg Take 1 capsule by mouth every morning and evening. [facility] rivastigmin e tartrate 3 mg capsule 3-0 8-18 00:00: 00 Yes [id number] 3mg Take 1 capsule by mouth every morning and evening. [facility] rivastigmin e tartrate 3 mg capsule 3-0 8-18 00:00: 00 Yes [id number] 3mg Take 1 capsule by mouth every morning and evening. [facility] rivastigmin e tartrate 3 mg capsule 3-0 8-18 00:00: 00 Yes [id number] 3mg Take 1 capsule by mouth every morning and evening. [facility] rivastigmin e tartrate 3 mg capsule 3-0 8-18 00:00: 00 Yes [id number] 3mg Take 1 capsule by mouth every morning and evening. [facility] rivastigmin e tartrate 3 mg capsule 3-0 8-18 00:00: 00 Yes [id number] 3mg Take 1 capsule by mouth every morning and evening. [facility] rivastigmin e tartrate 3 mg capsule 3-0 8-18 00:00: 00 Yes [id number] 3mg Take 1 capsule by mouth every morning and evening. [facility] rivastigmin e tartrate 3 mg capsule 3-0 8-18 00:00: 00 Yes [id number] 3mg Take 1 capsule by mouth every morning and evening. [facility] rivastigmin e tartrate 3 mg capsule 3-0 8-18 00:00: 00 Yes [id number] 3mg Take 1 capsule by mouth every morning and evening. [facility] rivastigmin e tartrate 3 mg capsule 3-0 8-18 00:00: 00 Yes [id number] 3mg Take 1 capsule by mouth every morning and evening. [facility] rivastigmin e tartrate 3 mg capsule 3-0 8-18 00:00: 00 Yes [id number] 3mg Take 1 capsule by mouth every morning and evening. [facility] rivastigmin e tartrate 3 mg capsule 3-0 8-18 00:00: 00 Yes [id number] 3mg Take 1 capsule by mouth every morning and evening. [facility] rivastigmin e tartrate 3 mg capsule 3-0 8-18 00:00: 00 Yes [id number] 3mg Take 1 capsule by mouth every morning and evening. [facility] rivastigmin e tartrate 3 mg capsule 3-0 8-18 00:00: 00 05-16 00:00 :00 No [id number] 3mg Take 1 capsule by mouth every morning and evening. [facility] rivastigmin e tartrate 3 mg capsule 01-25 00:00: 00 05-16 00:00 :00 No [id number] 3mg Take 1 capsule by mouth every morning and evening. [facility] divalproex (DEPAKOTE) 500 mg EC tablet 01-25 00:00: 00 03-25 00:00 :00 No [id number] 500mg Take 1 tablet by mouth every 12 (twelve) hours. [facility] predniSONE 20 mg tablet 01-16 00:00: 00 01-22 04:59 :00 No [id number] 20mg Take 1 tablet by mouth every morning for 5 days. [facility] predniSONE 20 mg tablet 01-16 00:00: 00 01-22 04:59 :00 No [id number] 20mg Take 1 tablet by mouth every morning for 5 days. [facility] methylPREDN ISolone sod succ (SOLU-MEDRO L (PF)) injection 40 mg 01-15 22:30: 00 01-15 21:51 :00 No [id number] 40mg [facility] methylPREDN ISolone sod succ (SOLU-MEDRO L (PF)) injection 40 mg 01-15 22:30: 00 01-15 21:51 :00 No [id number] 40mg 40 mg, Intravenou s, ONCE, 1 dose, On Sat01/15/23 at 1730, Routine [facility] methylPREDN ISolone sod succ (SOLU-MEDRO L (PF)) injection 40 mg 01-15 22:30: 00 01-15 21:51 :00 No [id number] 40mg [facility] methylPREDN ISolone sod succ (SOLU-MEDRO L (PF)) injection 40 mg 01-15 22:30: 00 01-15 21:51 :00 No [id number] 40mg 40 mg, Intravenou s, ONCE, 1 dose, On Sat01/15/23 at 1730, Routine [facility] fexofenadin e (ABEL ALLERGY) 60 mg tablet 2022-0 8 00:00: 00 Yes [id number] 60mg Take 1 tablet by mouth in the morning and 1 tablet in the evening. [facility] fexofenadin e (ABEL ALLERGY) 60 mg tablet 2022-0 8 00:00: 00 Yes [id number] 60mg Take 1 tablet by mouth in the morning and 1 tablet in the evening. [facility] fexofenadin e (ABEL ALLERGY) 60 mg tablet 2022-0 8 00:00: 00 Yes [id number] 60mg Take 1 tablet by mouth in the morning and 1 tablet in the evening. [facility] fexofenadin e (ABEL ALLERGY) 60 mg tablet 2022-0 8 00:00: 00 Yes [id number] 60mg Take 1 tablet by mouth in the morning and 1 tablet in the evening. [facility] fexofenadin e (ABEL ALLERGY) 60 mg tablet 2022-0 8 00:00: 00 Yes [id number] 60mg Take 1 tablet by mouth in the morning and 1 tablet in the evening. [facility] fexofenadin e (ABEL ALLERGY) 60 mg tablet 3-0 8 00:00: 00 Yes [id number] 60mg Take 1 tablet by mouth in the morning and 1 tablet in the evening. [facility] fexofenadin e (ABEL ALLERGY) 60 mg tablet 3-0 8 00:00: 00 Yes [id number] 60mg Take 1 tablet by mouth in the morning and 1 tablet in the evening. [facility] fexofenadin e (ABEL ALLERGY) 60 mg tablet 3-0 8 00:00: 00 Yes [id number] 60mg Take 1 tablet by mouth in the morning and 1 tablet in the evening. [facility] fexofenadin e (ABEL ALLERGY) 60 mg tablet 3-0 8- 00:00: 00 Yes [id number] 60mg Take 1 tablet by mouth in the morning and 1 tablet in the evening. [facility] fexofenadin e (ABEL ALLERGY) 60 mg tablet 01-15 00:00: 00 Yes [id number] 60mg Take 1 tablet by mouth in the morning and 1 tablet in the evening. [facility] fexofenadin e (ABEL ALLERGY) 60 mg tablet 01-15 00:00: 00 Yes [id number] 60mg Take 1 tablet by mouth in the morning and 1 tablet in the evening. [facility] fexofenadin e (ABEL ALLERGY) 60 mg tablet 01-15 00:00: 00 03-28 00:00 :00 No [id number] 60mg Take 1 tablet by mouth in the morning and 1 tablet in the evening. [facility] fexofenadin e (ABEL ALLERGY) 60 mg tablet 01-15 00:00: 00 01-15 00:00 :00 No [id number] 60mg Take 1 tablet by mouth in the morning and 1 tablet in the evening. [facility] fexofenadin e (ABEL ALLERGY) 60 mg tablet 01-15 00:00: 00 01-15 00:00 :00 No [id number] 60mg Take 1 tablet by mouth in the morning and 1 tablet in the evening. [facility] amLODIPine 5 mg tablet 01-03 00:00: 00 Yes [id number] 5mg Take 1 tablet by mouth in the morning. [facility] fluticasone propionate 50 mcg/actuati on nasal spray 01-03 00:00: 00 Yes [id number] 1{spray } Use 1 [place] in each nostril in the morning. [facility] fexofenadin e (ABEL ALLERGY) 60 mg tablet 01-03 00:00: 00 Yes [id number] 60mg Take 1 tablet by mouth in the morning. [facility] amLODIPine 5 mg tablet 01-03 00:00: 00 Yes [id number] 5mg Take 1 tablet by mouth in the morning. [facility] fluticasone propionate 50 mcg/actuati on nasal spray 01-03 00:00: 00 Yes [id number] 1{spray } Use 1 [place] in each nostril in the morning. [facility] fexofenadin e (ABEL ALLERGY) 60 mg tablet 01-03 00:00: 00 Yes [id number] 60mg Take 1 tablet by mouth in the morning. [facility] amLODIPine 5 mg tablet 01-03 00:00: 00 Yes [id number] 5mg Take 1 tablet by mouth in the morning. [facility] fluticasone propionate 50 mcg/actuati on nasal spray 01-03 00:00: 00 Yes [id number] 1{spray } Use 1 [place] in each nostril in the morning. [facility] amLODIPine 5 mg tablet 01-03 00:00: 00 Yes [id number] 5mg Take 1 tablet by mouth in the morning. [facility] fluticasone propionate 50 mcg/actuati on nasal spray 01-03 00:00: 00 Yes [id number] 1{spray } Use 1 [place] in each nostril in the morning. [facility] amLODIPine 5 mg tablet 01-03 00:00: 00 Yes [id number] 5mg Take 1 tablet by mouth in the morning. [facility] fluticasone propionate 50 mcg/actuati on nasal spray 01-03 00:00: 00 Yes [id number] 1{spray } Use 1 [place] in each nostril in the morning. [facility] amLODIPine 5 mg tablet 01-03 00:00: 00 Yes [id number] 5mg Take 1 tablet by mouth in the morning. [facility] fluticasone propionate 50 mcg/actuati on nasal spray 01-03 00:00: 00 Yes [id number] 1{spray } Use 1 [place] in each nostril in the morning. [facility] amLODIPine 5 mg tablet 01-03 00:00: 00 Yes [id number] 5mg Take 1 tablet by mouth in the morning. [facility] fluticasone propionate 50 mcg/actuati on nasal spray 01-03 00:00: 00 Yes [id number] 1{spray } Use 1 [place] in each nostril in the morning. [facility] amLODIPine 5 mg tablet 01-03 00:00: 00 Yes [id number] 5mg Take 1 tablet by mouth in the morning. [facility] fluticasone propionate 50 mcg/actuati on nasal spray 01-03 00:00: 00 Yes [id number] 1{spray } Use 1 [place] in each nostril in the morning. [facility] amLODIPine 5 mg tablet 01-03 00:00: 00 Yes [id number] 5mg Take 1 tablet by mouth in the morning. [facility] fluticasone propionate 50 mcg/actuati on nasal spray 01-03 00:00: 00 Yes [id number] 1{spray } Use 1 [place] in each nostril in the morning. [facility] amLODIPine 5 mg tablet 01-03 00:00: 00 Yes [id number] 5mg Take 1 tablet by mouth in the morning. [facility] fluticasone propionate 50 mcg/actuati on nasal spray 01-03 00:00: 00 Yes [id number] 1{spray } Use 1 [place] in each nostril in the morning. [facility] amLODIPine 5 mg tablet 01-03 00:00: 00 Yes [id number] 5mg Take 1 tablet by mouth in the morning. [facility] fluticasone propionate 50 mcg/actuati on nasal spray 01-03 00:00: 00 Yes [id number] 1{spray } Use 1 [place] in each nostril in the morning. [facility] amLODIPine 5 mg tablet 01-03 00:00: 00 Yes [id number] 5mg Take 1 tablet by mouth in the morning. [facility] fluticasone propionate 50 mcg/actuati on nasal spray 01-03 00:00: 00 Yes [id number] 1{spray } Use 1 [place] in each nostril in the morning. [facility] amLODIPine 5 mg tablet 01-03 00:00: 00 Yes [id number] 5mg Take 1 tablet by mouth in the morning. [facility] fluticasone propionate 50 mcg/actuati on nasal spray 01-03 00:00: 00 Yes [id number] 1{spray } Use 1 [place] in each nostril in the morning. [facility] amLODIPine 5 mg tablet 01-03 00:00: 00 Yes [id number] 5mg Take 1 tablet by mouth in the morning. [facility] fluticasone propionate 50 mcg/actuati on nasal spray 01-03 00:00: 00 Yes [id number] 1{spray } Use 1 [place] in each nostril in the morning. [facility] fluticasone propionate 50 mcg/actuati on nasal spray 01-03 00:00: 00 Yes [id number] 1{spray } Use 1 [place] in each nostril in the morning. [facility] fluticasone propionate 50 mcg/actuati on nasal spray 01-03 00:00: 00 Yes [id number] 1{spray } Use 1 [place] in each nostril in the morning. [facility] fluticasone propionate 50 mcg/actuati on nasal spray 01-03 00:00: 00 Yes [id number] 1{spray } Use 1 [place] in each nostril in the morning. [facility] fluticasone propionate 50 mcg/actuati on nasal spray 01-03 00:00: 00 Yes [id number] 1{spray } Use 1 [place] in each nostril in the morning. [facility] fluticasone propionate 50 mcg/actuati on nasal spray 0 01-03 00:00: 00 Yes [id number] 1{spray } Use 1 [place] in each nostril in the morning. [facility] fluticasone propionate 50 mcg/actuati on nasal spray 01-03 00:00: 00 Yes [id number] 1{spray } Use 1 [place] in each nostril in the morning. [facility] fluticasone propionate 50 mcg/actuati on nasal spray 01-03 00:00: 00 Yes [id number] 1{spray } Use 1 [place] in each nostril in the morning. [facility] fluticasone propionate 50 mcg/actuati on nasal spray 01-03 00:00: 00 Yes [id number] 1{spray } Use 1 [place] in each nostril in the morning. [facility] fluticasone propionate 50 mcg/actuati on nasal spray 01-03 00:00: 00 Yes [id number] 1{spray } Use 1 [place] in each nostril in the morning. [facility] fluticasone propionate 50 mcg/actuati on nasal spray 01-03 00:00: 00 Yes [id number] 1{spray } Use 1 [place] in each nostril in the morning. [facility] fluticasone propionate 50 mcg/actuati on nasal spray 01-03 00:00: 00 Yes [id number] 1{spray } Use 1 [place] in each nostril in the morning. [facility] fluticasone propionate 50 mcg/actuati on nasal spray 01-03 00:00: 00 Yes [id number] 1{spray } Use 1 [place] in each nostril in the morning. [facility] fluticasone propionate 50 mcg/actuati on nasal spray 01-03 00:00: 00 Yes [id number] 1{spray } Use 1 [place] in each nostril in the morning. [facility] fluticasone propionate 50 mcg/actuati on nasal spray 01-03 00:00: 00 Yes [id number] 1{spray } Use 1 [place] in each nostril in the morning. [facility] fluticasone propionate 50 mcg/actuati on nasal spray 0 01-03 00:00: 00 Yes [id number] 1{spray } Use 1 [place] in each nostril in the morning. [facility] fluticasone propionate 50 mcg/actuati on nasal spray 01-03 00:00: 00 Yes [id number] 1{spray } Use 1 [place] in each nostril in the morning. [facility] fluticasone propionate 50 mcg/actuati on nasal spray 01-03 00:00: 00 Yes [id number] 1{spray } Use 1 [place] in each nostril in the morning. [facility] fluticasone propionate 50 mcg/actuati on nasal spray 01-03 00:00: 00 Yes [id number] 1{spray } Use 1 [place] in each nostril in the morning. [facility] fluticasone propionate 50 mcg/actuati on nasal spray 01-03 00:00: 00 Yes [id number] 1{spray } Use 1 [place] in each nostril in the morning. [facility] fluticasone propionate 50 mcg/actuati on nasal spray 01-03 00:00: 00 Yes [id number] 1{spray } Use 1 [place] in each nostril in the morning. [facility] fluticasone propionate 50 mcg/actuati on nasal spray 01-03 00:00: 00 Yes [id number] 1{spray } Use 1 [place] in each nostril in the morning. [facility] fluticasone propionate 50 mcg/actuati on nasal spray 01-03 00:00: 00 Yes [id number] 1{spray } Use 1 [place] in each nostril in the morning. [facility] fluticasone propionate 50 mcg/actuati on nasal spray 01-03 00:00: 00 Yes [id number] 1{spray } Use 1 [place] in each nostril in the morning. [facility] fluticasone propionate 50 mcg/actuati on nasal spray 01-03 00:00: 00 Yes [id number] 1{spray } Use 1 [place] in each nostril in the morning. [facility] fluticasone propionate 50 mcg/actuati on nasal spray 01-03 00:00: 00 Yes [id number] 1{spray } Use 1 [place] in each nostril in the morning. [facility] fluticasone propionate 50 mcg/actuati on nasal spray 01-03 00:00: 00 Yes [id number] 1{spray } Use 1 [place] in each nostril in the morning. [facility] fluticasone propionate 50 mcg/actuati on nasal spray 01-03 00:00: 00 Yes [id number] 1{spray } Use 1 [place] in each nostril in the morning. [facility] fluticasone propionate 50 mcg/actuati on nasal spray 01-03 00:00: 00 Yes [id number] 1{spray } Use 1 [place] in each nostril in the morning. [facility] fluticasone propionate 50 mcg/actuati on nasal spray 01-03 00:00: 00 Yes [id number] 1{spray } Use 1 [place] in each nostril in the morning. [facility] fluticasone propionate 50 mcg/actuati on nasal spray 01-03 00:00: 00 Yes [id number] 1{spray } Use 1 [place] in each nostril in the morning. [facility] amLODIPine 5 mg tablet 01-03 00:00: 00 03-28 00:00 :00 No [id number] 5mg Take 1 tablet by mouth in the morning. [facility] fexofenadin e (ABEL ALLERGY) 60 mg tablet 01-03 00:00: 00 01-15 00:00 :00 No [id number] 60mg Take 1 tablet by mouth in the morning. [facility] fexofenadin e (ABEL ALLERGY) 60 mg tablet 01-03 00:00: 00 01-15 00:00 :00 No [id number] 60mg Take 1 tablet by mouth in the morning. [facility] fexofenadin e (ABEL ALLERGY) 60 mg tablet 01-03 00:00: 00 01-15 00:00 :00 No [id number] 60mg Take 1 tablet by mouth in the morning. [facility] doxycycline hyclate 100 mg tablet 01-03 00:00: 00 01-11 04:59 :00 No [id number] 100mg Take 1 tablet by mouth in the morning and 1 tablet in the evening. Do all this for 7 days. [facility] doxycycline hyclate 100 mg tablet 01-03 00:00: 00 01-11 04:59 :00 No [id number] 100mg Take 1 tablet by mouth in the morning and 1 tablet in the evening. Do all this for 7 days. [facility] fexofenadin e-pseudoeph edrine (ABEL-D) 60-120 mg per tablet 01-03 00:00: 00 01-03 00:00 :00 No [id number] 1{tbl} Take 1 tablet by mouth in the morning and 1 tablet in the evening. [facility] fexofenadin e-pseudoeph edrine (ABEL-D) 60-120 mg per tablet 01-03 00:00: 00 01-03 00:00 :00 No [id number] 1{tbl} Take 1 tablet by mouth in the morning and 1 tablet in the evening. [facility] rivastigmin e tartrate 1.5 mg capsule 12-24 00:00: 00 Yes [id number] 1.5mg Take 1 capsule by mouth every morning and evening. [facility] rivastigmin e tartrate 1.5 mg capsule 12-24 00:00: 00 Yes [id number] 1.5mg Take 1 capsule by mouth every morning and evening. [facility] rivastigmin e tartrate 1.5 mg capsule 12-24 00:00: 00 Yes [id number] 1.5mg Take 1 capsule by mouth every morning and evening. [facility] rivastigmin e tartrate 1.5 mg capsule 2023-0 7-17 00:00: 00 Yes [id number] 1.5mg Take 1 capsule by mouth every morning and evening. [facility] rivastigmin e tartrate 1.5 mg capsule 2022-0 7-17 00:00: 00 Yes [id number] 1.5mg Take 1 capsule by mouth every morning and evening. [facility] rivastigmin e tartrate 1.5 mg capsule 2022-0 7-17 00:00: 00 Yes [id number] 1.5mg Take 1 capsule by mouth every morning and evening. [facility] rivastigmin e tartrate 1.5 mg capsule 2022-0 17 00:00: 00 Yes [id number] 1.5mg Take 1 capsule by mouth every morning and evening. [facility] rivastigmin e tartrate 1.5 mg capsule 2022-0 17 00:00: 00 01-25 00:00 :00 No [id number] 1.5mg Take 1 capsule by mouth every morning and evening. [facility] rivastigmin e tartrate 1.5 mg capsule 2022-0 17 00:00: 00 01-25 00:00 :00 No [id number] 1.5mg Take 1 capsule by mouth every morning and evening. [facility] cloNIDine (CATAPRES) tablet 0.2 mg 2022-11-22 22:00: 00 11-22 22:02 :00 No [id number] .2mg [facility] cloNIDine (CATAPRES) tablet 0.2 mg 2022-0 11-22 22:00: 00 11-22 22:02 :00 No [id number] .2mg 0.2 mg, Oral, ONCE, 1 dose, [place] 11/22/22 at 1700, Routine [facility] cloNIDine (CATAPRES) tablet 0.2 mg 2022-0 11-22 22:00: 00 11-22 22:02 :00 No [id number] .2mg [facility] cloNIDine (CATAPRES) tablet 0.2 mg 2022-0 11-22 22:00: 00 11-22 22:02 :00 No [id number] .2mg 0.2 mg, Oral, ONCE, 1 dose, [place] 11/22/22 at 1700, Routine [facility] hydrALAZINE 50 mg tablet 11-22 00:00: 00 Yes [id number] 50mg Take 1 tablet by mouth 3 (three) times daily as needed (Take 1 Tab TID PRN if BP > 160/90). [facility] busPIRone 7.5 mg tablet 11-22 00:00: 00 Yes [id number] 7.5mg Take 1 tablet by mouth in the morning and 1 tablet in the evening. [facility] hydrALAZINE 50 mg tablet 11-22 00:00: 00 Yes [id number] 50mg Take 1 tablet by mouth 3 (three) times daily as needed (Take 1 Tab TID PRN if BP > 160/90). [facility] busPIRone 7.5 mg tablet 11-22 00:00: 00 Yes [id number] 7.5mg Take 1 tablet by mouth in the morning and 1 tablet in the evening. [facility] hydrALAZINE 50 mg tablet 11-22 00:00: 00 Yes [id number] 50mg Take 1 tablet by mouth 3 (three) times daily as needed (Take 1 Tab TID PRN if BP > 160/90). [facility] busPIRone 7.5 mg tablet 11-22 00:00: 00 Yes [id number] 7.5mg Take 1 tablet by mouth in the morning and 1 tablet in the evening. [facility] hydrALAZINE 50 mg tablet 11-22 00:00: 00 Yes [id number] 50mg Take 1 tablet by mouth 3 (three) times daily as needed (Take 1 Tab TID PRN if BP > 160/90). [facility] busPIRone 7.5 mg tablet 11-22 00:00: 00 Yes [id number] 7.5mg Take 1 tablet by mouth in the morning and 1 tablet in the evening. [facility] hydrALAZINE 50 mg tablet 0 15 00:00: 00 Yes [id number] 50mg Take 1 tablet by mouth 3 (three) times daily as needed (Take 1 Tab TID PRN if BP > 160/90). [facility] busPIRone 7.5 mg tablet 0 15 00:00: 00 Yes [id number] 7.5mg Take 1 tablet by mouth in the morning and 1 tablet in the evening. [facility] hydrALAZINE 50 mg tablet 0 15 00:00: 00 Yes [id number] 50mg Take 1 tablet by mouth 3 (three) times daily as needed (Take 1 Tab TID PRN if BP > 160/90). [facility] busPIRone 7.5 mg tablet 0 15 00:00: 00 Yes [id number] 7.5mg Take 1 tablet by mouth in the morning and 1 tablet in the evening. [facility] hydrALAZINE 50 mg tablet 0 11-22 00:00: 00 Yes [id number] 50mg Take 1 tablet by mouth 3 (three) times daily as needed (Take 1 Tab TID PRN if BP > 160/90). [facility] busPIRone 7.5 mg tablet 0 15 00:00: 00 Yes [id number] 7.5mg Take 1 tablet by mouth in the morning and 1 tablet in the evening. [facility] hydrALAZINE 50 mg tablet 0 15 00:00: 00 Yes [id number] 50mg Take 1 tablet by mouth 3 (three) times daily as needed (Take 1 Tab TID PRN if BP > 160/90). [facility] busPIRone 7.5 mg tablet 2022-0 15 00:00: 00 Yes [id number] 7.5mg Take 1 tablet by mouth in the morning and 1 tablet in the evening. [facility] hydrALAZINE 50 mg tablet 2022-0 15 00:00: 00 Yes [id number] 50mg Take 1 tablet by mouth 3 (three) times daily as needed (Take 1 Tab TID PRN if BP > 160/90). [facility] busPIRone 7.5 mg tablet 2022-0 6-15 00:00: 00 Yes [id number] 7.5mg Take 1 tablet by mouth in the morning and 1 tablet in the evening. [facility] hydrALAZINE 50 mg tablet 2022-0 6-15 00:00: 00 Yes [id number] 50mg Take 1 tablet by mouth 3 (three) times daily as needed (Take 1 Tab TID PRN if BP > 160/90). [facility] busPIRone 7.5 mg tablet 2022-0 6-15 00:00: 00 Yes [id number] 7.5mg Take 1 tablet by mouth in the morning and 1 tablet in the evening. [facility] hydrALAZINE 50 mg tablet 2022-0 -15 00:00: 00 Yes [id number] 50mg Take 1 tablet by mouth 3 (three) times daily as needed (Take 1 Tab TID PRN if BP > 160/90). [facility] busPIRone 7.5 mg tablet 2022-0 -15 00:00: 00 Yes [id number] 7.5mg Take 1 tablet by mouth in the morning and 1 tablet in the evening. [facility] hydrALAZINE 50 mg tablet 2022-0 -15 00:00: 00 Yes [id number] 50mg Take 1 tablet by mouth 3 (three) times daily as needed (Take 1 Tab TID PRN if BP > 160/90). [facility] busPIRone 7.5 mg tablet 2022-0 6-15 00:00: 00 Yes [id number] 7.5mg Take 1 tablet by mouth in the morning and 1 tablet in the evening. [facility] hydrALAZINE 50 mg tablet 3-0 6-15 00:00: 00 Yes [id number] 50mg Take 1 tablet by mouth 3 (three) times daily as needed (Take 1 Tab TID PRN if BP > 160/90). [facility] busPIRone 7.5 mg tablet 3-0 6-15 00:00: 00 Yes [id number] 7.5mg Take 1 tablet by mouth in the morning and 1 tablet in the evening. [facility] hydrALAZINE 50 mg tablet 3-0 6-15 00:00: 00 Yes [id number] 50mg Take 1 tablet by mouth 3 (three) times daily as needed (Take 1 Tab TID PRN if BP > 160/90). [facility] busPIRone 7.5 mg tablet 2022-0 6-15 00:00: 00 Yes [id number] 7.5mg Take 1 tablet by mouth in the morning and 1 tablet in the evening. [facility] hydrALAZINE 50 mg tablet 2022-0 6-15 00:00: 00 Yes [id number] 50mg Take 1 tablet by mouth 3 (three) times daily as needed (Take 1 Tab TID PRN if BP > 160/90). [facility] busPIRone 7.5 mg tablet 2022-0 6-15 00:00: 00 Yes [id number] 7.5mg Take 1 tablet by mouth in the morning and 1 tablet in the evening. [facility] hydrALAZINE 50 mg tablet 2022-0 6-15 00:00: 00 Yes [id number] 50mg Take 1 tablet by mouth 3 (three) times daily as needed (Take 1 Tab TID PRN if BP > 160/90). [facility] busPIRone 7.5 mg tablet 2022-0 6-15 00:00: 00 Yes [id number] 7.5mg Take 1 tablet by mouth in the morning and 1 tablet in the evening. [facility] hydrALAZINE 50 mg tablet 2022-0 6-15 00:00: 00 Yes [id number] 50mg Take 1 tablet by mouth 3 (three) times daily as needed (Take 1 Tab TID PRN if BP > 160/90). [facility] busPIRone 7.5 mg tablet 3-0 6-15 00:00: 00 Yes [id number] 7.5mg Take 1 tablet by mouth in the morning and 1 tablet in the evening. [facility] hydrALAZINE 50 mg tablet 3-0 6-15 00:00: 00 Yes [id number] 50mg Take 1 tablet by mouth 3 (three) times daily as needed (Take 1 Tab TID PRN if BP > 160/90). [facility] busPIRone 7.5 mg tablet 2022-0 6-15 00:00: 00 Yes [id number] 7.5mg Take 1 tablet by mouth in the morning and 1 tablet in the evening. [facility] hydrALAZINE 50 mg tablet 3-0 6-15 00:00: 00 Yes [id number] 50mg Take 1 tablet by mouth 3 (three) times daily as needed (Take 1 Tab TID PRN if BP > 160/90). [facility] busPIRone 7.5 mg tablet 3-0 6-15 00:00: 00 Yes [id number] 7.5mg Take 1 tablet by mouth in the morning and 1 tablet in the evening. [facility] hydrALAZINE 50 mg tablet 2022-0 6-15 00:00: 00 Yes [id number] 50mg Take 1 tablet by mouth 3 (three) times daily as needed (Take 1 Tab TID PRN if BP > 160/90). [facility] busPIRone 7.5 mg tablet 2022-0 6-15 00:00: 00 Yes [id number] 7.5mg Take 1 tablet by mouth in the morning and 1 tablet in the evening. [facility] hydrALAZINE 50 mg tablet 3-0 6-15 00:00: 00 Yes [id number] 50mg Take 1 tablet by mouth 3 (three) times daily as needed (Take 1 Tab TID PRN if BP > 160/90). [facility] busPIRone 7.5 mg tablet 3-0 6-15 00:00: 00 Yes [id number] 7.5mg Take 1 tablet by mouth in the morning and 1 tablet in the evening. [facility] hydrALAZINE 50 mg tablet 3-0 6-15 00:00: 00 Yes [id number] 50mg Take 1 tablet by mouth 3 (three) times daily as needed (Take 1 Tab TID PRN if BP > 160/90). [facility] busPIRone 7.5 mg tablet 3-0 6-15 00:00: 00 Yes [id number] 7.5mg Take 1 tablet by mouth in the morning and 1 tablet in the evening. [facility] hydrALAZINE 50 mg tablet 2022-0 6-15 00:00: 00 Yes [id number] 50mg Take 1 tablet by mouth 3 (three) times daily as needed (Take 1 Tab TID PRN if BP > 160/90). [facility] busPIRone 7.5 mg tablet 2022-0 6-15 00:00: 00 Yes [id number] 7.5mg Take 1 tablet by mouth in the morning and 1 tablet in the evening. [facility] hydrALAZINE 50 mg tablet 2022-0 6-15 00:00: 00 Yes [id number] 50mg Take 1 tablet by mouth 3 (three) times daily as needed (Take 1 Tab TID PRN if BP > 160/90). [facility] busPIRone 7.5 mg tablet 2022-0 -15 00:00: 00 Yes [id number] 7.5mg Take 1 tablet by mouth in the morning and 1 tablet in the evening. [facility] hydrALAZINE 50 mg tablet 2022-0 6-15 00:00: 00 Yes [id number] 50mg Take 1 tablet by mouth 3 (three) times daily as needed (Take 1 Tab TID PRN if BP > 160/90). [facility] busPIRone 7.5 mg tablet 2022-0 -15 00:00: 00 Yes [id number] 7.5mg Take 1 tablet by mouth in the morning and 1 tablet in the evening. [facility] hydrALAZINE 50 mg tablet 3-0 6-15 00:00: 00 Yes [id number] 50mg Take 1 tablet by mouth 3 (three) times daily as needed (Take 1 Tab TID PRN if BP > 160/90). [facility] busPIRone 7.5 mg tablet 2022-0 6-15 00:00: 00 Yes [id number] 7.5mg Take 1 tablet by mouth in the morning and 1 tablet in the evening. [facility] hydrALAZINE 50 mg tablet 2022-0 6-15 00:00: 00 Yes [id number] 50mg Take 1 tablet by mouth 3 (three) times daily as needed (Take 1 Tab TID PRN if BP > 160/90). [facility] busPIRone 7.5 mg tablet 2022-0 -15 00:00: 00 Yes [id number] 7.5mg Take 1 tablet by mouth in the morning and 1 tablet in the evening. [facility] hydrALAZINE 50 mg tablet 2022-0 -15 00:00: 00 Yes [id number] 50mg Take 1 tablet by mouth 3 (three) times daily as needed (Take 1 Tab TID PRN if BP > 160/90). [facility] busPIRone 7.5 mg tablet 2022-0 -15 00:00: 00 Yes [id number] 7.5mg Take 1 tablet by mouth in the morning and 1 tablet in the evening. [facility] hydrALAZINE 50 mg tablet 2022-0 -15 00:00: 00 Yes [id number] 50mg Take 1 tablet by mouth 3 (three) times daily as needed (Take 1 Tab TID PRN if BP > 160/90). [facility] busPIRone 7.5 mg tablet 2022-0 15 00:00: 00 Yes [id number] 7.5mg Take 1 tablet by mouth in the morning and 1 tablet in the evening. [facility] hydrALAZINE 50 mg tablet 2022-0 -15 00:00: 00 Yes [id number] 50mg Take 1 tablet by mouth 3 (three) times daily as needed (Take 1 Tab TID PRN if BP > 160/90). [facility] busPIRone 7.5 mg tablet 2022-0 -15 00:00: 00 Yes [id number] 7.5mg Take 1 tablet by mouth in the morning and 1 tablet in the evening. [facility] hydrALAZINE 50 mg tablet 2022-0 6-15 00:00: 00 Yes [id number] 50mg Take 1 tablet by mouth 3 (three) times daily as needed (Take 1 Tab TID PRN if BP > 160/90). [facility] busPIRone 7.5 mg tablet 2022-0 -15 00:00: 00 Yes [id number] 7.5mg Take 1 tablet by mouth in the morning and 1 tablet in the evening. [facility] hydrALAZINE 50 mg tablet 2022-0 6-15 00:00: 00 Yes [id number] 50mg Take 1 tablet by mouth 3 (three) times daily as needed (Take 1 Tab TID PRN if BP > 160/90). [facility] busPIRone 7.5 mg tablet 2022-0 -15 00:00: 00 Yes [id number] 7.5mg Take 1 tablet by mouth in the morning and 1 tablet in the evening. [facility] hydrALAZINE 50 mg tablet 2022-0 -15 00:00: 00 Yes [id number] 50mg Take 1 tablet by mouth 3 (three) times daily as needed (Take 1 Tab TID PRN if BP > 160/90). [facility] busPIRone 7.5 mg tablet 2022-0 -15 00:00: 00 Yes [id number] 7.5mg Take 1 tablet by mouth in the morning and 1 tablet in the evening. [facility] hydrALAZINE 50 mg tablet 2022-0 -15 00:00: 00 Yes [id number] 50mg Take 1 tablet by mouth 3 (three) times daily as needed (Take 1 Tab TID PRN if BP > 160/90). [facility] busPIRone 7.5 mg tablet 2022-0 -15 00:00: 00 Yes [id number] 7.5mg Take 1 tablet by mouth in the morning and 1 tablet in the evening. [facility] hydrALAZINE 50 mg tablet 2022-0 6-15 00:00: 00 Yes [id number] 50mg Take 1 tablet by mouth 3 (three) times daily as needed (Take 1 Tab TID PRN if BP > 160/90). [facility] busPIRone 7.5 mg tablet 2022-0 6-15 00:00: 00 Yes [id number] 7.5mg Take 1 tablet by mouth in the morning and 1 tablet in the evening. [facility] hydrALAZINE 50 mg tablet 3-0 6-15 00:00: 00 Yes [id number] 50mg Take 1 tablet by mouth 3 (three) times daily as needed (Take 1 Tab TID PRN if BP > 160/90). [facility] busPIRone 7.5 mg tablet 3-0 6-15 00:00: 00 Yes [id number] 7.5mg Take 1 tablet by mouth in the morning and 1 tablet in the evening. [facility] hydrALAZINE 50 mg tablet 2022-0 6-15 00:00: 00 05-09 00:00 :00 No [id number] 50mg Take 1 tablet by mouth 3 (three) times daily as needed (Take 1 Tab TID PRN if BP > 160/90). [facility] busPIRone 7.5 mg tablet 2022-0 6-15 00:00: 00 05-09 00:00 :00 No [id number] 7.5mg Take 1 tablet by mouth in the morning and 1 tablet in the evening. [facility] hydrALAZINE 50 mg tablet 2022-0 6-15 00:00: 00 05-09 00:00 :00 No [id number] 50mg Take 1 tablet by mouth 3 (three) times daily as needed (Take 1 Tab TID PRN if BP > 160/90). [facility] busPIRone 7.5 mg tablet 2022-0 6-15 00:00: 00 05-09 00:00 :00 No [id number] 7.5mg Take 1 tablet by mouth in the morning and 1 tablet in the evening. [facility] hydrALAZINE 50 mg tablet 2022-0 6-15 00:00: 00 05-09 00:00 :00 No [id number] 50mg Take 1 tablet by mouth 3 (three) times daily as needed (Take 1 Tab TID PRN if BP > 160/90). [facility] busPIRone 7.5 mg tablet 2022-0 6-15 00:00: 00 05-09 00:00 :00 No [id number] 7.5mg Take 1 tablet by mouth in the morning and 1 tablet in the evening. [facility] metoprolol succinate XL 100 mg 24 hr tablet 11-07 00:00: 00 Yes [id number] TAKE 1 TABLET BY MOUTH IN THE MORNING WITH FOOD [facility] hydroCHLORO thiazide 50 mg tablet 11-07 00:00: 00 Yes [id number] TAKE 1 TABLET BY MOUTH ONCE DAILY [facility] furosemide 20 mg tablet 11-07 00:00: 00 Yes [id number] 20mg Take 1 tablet by mouth in the morning. [facility] losartan 100 mg tablet 11-07 00:00: 00 Yes [id number] Take 100mg qAM and 50mg qPM [facility] amitriptyli ne 10 mg tablet 11-07 00:00: 00 Yes [id number] 10mg Take 1 tablet by mouth at bedtime. [facility] apixaban (ELIQUIS) 2.5 mg tablet 11-07 00:00: 00 Yes 1358 2.5mg Take 1 tablet by mouth in the morning and 1 tablet in the evening. Indication s: atrial fibrillati on [facility] metoprolol succinate XL 100 mg 24 hr tablet 11-07 00:00: 00 Yes [id number] TAKE 1 TABLET BY MOUTH IN THE MORNING WITH FOOD [facility] hydroCHLORO thiazide 50 mg tablet 11-07 00:00: 00 Yes [id number] TAKE 1 TABLET BY MOUTH ONCE DAILY [facility] furosemide 20 mg tablet 11-07 00:00: 00 Yes [id number] 20mg Take 1 tablet by mouth in the morning. [facility] losartan 100 mg tablet 11-07 00:00: 00 Yes [id number] Take 100mg qAM and 50mg qPM [facility] amitriptyli ne 10 mg tablet 11-07 00:00: 00 Yes [id number] 10mg Take 1 tablet by mouth at bedtime. [facility] apixaban (ELIQUIS) 2.5 mg tablet 11-07 00:00: 00 Yes 1358 2.5mg Take 1 tablet by mouth in the morning and 1 tablet in the evening. Indication s: atrial fibrillati on [facility] metoprolol succinate XL 100 mg 24 hr tablet 11-07 00:00: 00 Yes [id number] TAKE 1 TABLET BY MOUTH IN THE MORNING WITH FOOD [facility] hydroCHLORO thiazide 50 mg tablet 11-07 00:00: 00 Yes [id number] TAKE 1 TABLET BY MOUTH ONCE DAILY [facility] furosemide 20 mg tablet 11-07 00:00: 00 Yes [id number] 20mg Take 1 tablet by mouth in the morning. [facility] losartan 100 mg tablet 11-07 00:00: 00 Yes [id number] Take 100mg qAM and 50mg qPM [facility] amitriptyli ne 10 mg tablet 11-07 00:00: 00 Yes [id number] 10mg Take 1 tablet by mouth at bedtime. [facility] apixaban (ELIQUIS) 2.5 mg tablet 11-07 00:00: 00 Yes 1358 2.5mg Take 1 tablet by mouth in the morning and 1 tablet in the evening. Indication s: atrial fibrillati on [facility] metoprolol succinate XL 100 mg 24 hr tablet 11-07 00:00: 00 Yes [id number] TAKE 1 TABLET BY MOUTH IN THE MORNING WITH FOOD [facility] hydroCHLORO thiazide 50 mg tablet 11-07 00:00: 00 Yes [id number] TAKE 1 TABLET BY MOUTH ONCE DAILY [facility] furosemide 20 mg tablet 11-07 00:00: 00 Yes [id number] 20mg Take 1 tablet by mouth in the morning. [facility] losartan 100 mg tablet 11-07 00:00: 00 Yes [id number] Take 100mg qAM and 50mg qPM [facility] amitriptyli ne 10 mg tablet 11-07 00:00: 00 Yes [id number] 10mg Take 1 tablet by mouth at bedtime. [facility] apixaban (ELIQUIS) 2.5 mg tablet 11-07 00:00: 00 Yes 1358 2.5mg Take 1 tablet by mouth in the morning and 1 tablet in the evening. Indication s: atrial fibrillati on [facility] metoprolol succinate XL 100 mg 24 hr tablet 11-07 00:00: 00 Yes [id number] TAKE 1 TABLET BY MOUTH IN THE MORNING WITH FOOD [facility] furosemide 20 mg tablet 11-07 00:00: 00 Yes [id number] 20mg Take 1 tablet by mouth in the morning. [facility] losartan 100 mg tablet 11-07 00:00: 00 Yes [id number] Take 100mg qAM and 50mg qPM [facility] amitriptyli ne 10 mg tablet 11-07 00:00: 00 Yes [id number] 10mg Take 1 tablet by mouth at bedtime. [facility] apixaban (ELIQUIS) 2.5 mg tablet 11-07 00:00: 00 Yes 1358 2.5mg Take 1 tablet by mouth in the morning and 1 tablet in the evening. Indication s: atrial fibrillati on [facility] metoprolol succinate XL 100 mg 24 hr tablet 11-07 00:00: 00 Yes [id number] TAKE 1 TABLET BY MOUTH IN THE MORNING WITH FOOD [facility] furosemide 20 mg tablet 11-07 00:00: 00 Yes [id number] 20mg Take 1 tablet by mouth in the morning. [facility] losartan 100 mg tablet 11-07 00:00: 00 Yes [id number] Take 100mg qAM and 50mg qPM [facility] amitriptyli ne 10 mg tablet 11-07 00:00: 00 Yes [id number] 10mg Take 1 tablet by mouth at bedtime. [facility] apixaban (ELIQUIS) 2.5 mg tablet 11-07 00:00: 00 Yes 1358 2.5mg Take 1 tablet by mouth in the morning and 1 tablet in the evening. Indication s: atrial fibrillati on [facility] metoprolol succinate XL 100 mg 24 hr tablet 11-07 00:00: 00 Yes [id number] TAKE 1 TABLET BY MOUTH IN THE MORNING WITH FOOD [facility] furosemide 20 mg tablet 11-07 00:00: 00 Yes [id number] 20mg Take 1 tablet by mouth in the morning. [facility] losartan 100 mg tablet 11-07 00:00: 00 Yes [id number] Take 100mg qAM and 50mg qPM [facility] amitriptyli ne 10 mg tablet 11-07 00:00: 00 Yes [id number] 10mg Take 1 tablet by mouth at bedtime. [facility] apixaban (ELIQUIS) 2.5 mg tablet 11-07 00:00: 00 Yes 1358 2.5mg Take 1 tablet by mouth in the morning and 1 tablet in the evening. Indication s: atrial fibrillati on [facility] metoprolol succinate XL 100 mg 24 hr tablet 11-07 00:00: 00 Yes [id number] TAKE 1 TABLET BY MOUTH IN THE MORNING WITH FOOD [facility] furosemide 20 mg tablet 11-07 00:00: 00 Yes [id number] 20mg Take 1 tablet by mouth in the morning. [facility] losartan 100 mg tablet 11-07 00:00: 00 Yes [id number] Take 100mg qAM and 50mg qPM [facility] amitriptyli ne 10 mg tablet 11-07 00:00: 00 Yes [id number] 10mg Take 1 tablet by mouth at bedtime. [facility] apixaban (ELIQUIS) 2.5 mg tablet 11-07 00:00: 00 Yes 1358 2.5mg Take 1 tablet by mouth in the morning and 1 tablet in the evening. Indication s: atrial fibrillati on [facility] metoprolol succinate XL 100 mg 24 hr tablet 11-07 00:00: 00 Yes [id number] TAKE 1 TABLET BY MOUTH IN THE MORNING WITH FOOD [facility] furosemide 20 mg tablet 11-07 00:00: 00 Yes [id number] 20mg Take 1 tablet by mouth in the morning. [facility] losartan 100 mg tablet 11-07 00:00: 00 Yes [id number] Take 100mg qAM and 50mg qPM [facility] amitriptyli ne 10 mg tablet 11-07 00:00: 00 Yes [id number] 10mg Take 1 tablet by mouth at bedtime. [facility] apixaban (ELIQUIS) 2.5 mg tablet 11-07 00:00: 00 Yes 1358 2.5mg Take 1 tablet by mouth in the morning and 1 tablet in the evening. Indication s: atrial fibrillati on [facility] metoprolol succinate XL 100 mg 24 hr tablet 11-07 00:00: 00 Yes [id number] TAKE 1 TABLET BY MOUTH IN THE MORNING WITH FOOD [facility] furosemide 20 mg tablet 11-07 00:00: 00 Yes [id number] 20mg Take 1 tablet by mouth in the morning. [facility] losartan 100 mg tablet 11-07 00:00: 00 Yes [id number] Take 100mg qAM and 50mg qPM [facility] amitriptyli ne 10 mg tablet 11-07 00:00: 00 Yes [id number] 10mg Take 1 tablet by mouth at bedtime. [facility] apixaban (ELIQUIS) 2.5 mg tablet 11-07 00:00: 00 Yes 1358 2.5mg Take 1 tablet by mouth in the morning and 1 tablet in the evening. Indication s: atrial fibrillati on [facility] metoprolol succinate XL 100 mg 24 hr tablet 11-07 00:00: 00 Yes [id number] TAKE 1 TABLET BY MOUTH IN THE MORNING WITH FO[facility] [facility] f[facility] 20 mg tablet 11-07 00:00: 00 Yes [id number] 20mg Take 1 tablet by mouth in the morning. [facility] losartan 100 mg tablet 11-07 00:00: 00 Yes [id number] Take 100mg qAM and 50mg qPM [facility] amitriptyli ne 10 mg tablet 11-07 00:00: 00 Yes [id number] 10mg Take 1 tablet by mouth at bedtime. [facility] apixaban (ELIQUIS) 2.5 mg tablet 11-07 00:00: 00 Yes 1358 2.5mg Take 1 tablet by mouth in the morning and 1 tablet in the evening. Indication s: atrial fibrillati on [facility] metoprolol succinate XL 100 mg 24 hr tablet 11-07 00:00: 00 Yes [id number] TAKE 1 TABLET BY MOUTH IN THE MORNING WITH FOOD [facility] furosemide 20 mg tablet 11-07 00:00: 00 Yes [id number] 20mg Take 1 tablet by mouth in the morning. [facility] losartan 100 mg tablet 11-07 00:00: 00 Yes [id number] Take 100mg qAM and 50mg qPM [facility] amitriptyli ne 10 mg tablet 11-07 00:00: 00 Yes [id number] 10mg Take 1 tablet by mouth at bedtime. [facility] apixaban (ELIQUIS) 2.5 mg tablet 11-07 00:00: 00 Yes 1358 2.5mg Take 1 tablet by mouth in the morning and 1 tablet in the evening. Indication s: atrial fibrillati on [facility] metoprolol succinate XL 100 mg 24 hr tablet 11-07 00:00: 00 Yes [id number] TAKE 1 TABLET BY MOUTH IN THE MORNING WITH FOOD [facility] furosemide 20 mg tablet 11-07 00:00: 00 Yes [id number] 20mg Take 1 tablet by mouth in the morning. [facility] losartan 100 mg tablet 11-07 00:00: 00 Yes [id number] Take 100mg qAM and 50mg qPM [facility] amitriptyli ne 10 mg tablet 11-07 00:00: 00 Yes [id number] 10mg Take 1 tablet by mouth at bedtime. [facility] apixaban (ELIQUIS) 2.5 mg tablet 0 11-07 00:00: 00 Yes 1358 2.5mg Take 1 tablet by mouth in the morning and 1 tablet in the evening. Indication s: atrial fibrillati on [facility] metoprolol succinate XL 100 mg 24 hr tablet 11-07 00:00: 00 Yes [id number] TAKE 1 TABLET BY MOUTH IN THE MORNING WITH FOOD [facility] furosemide 20 mg tablet 11-07 00:00: 00 Yes [id number] 20mg Take 1 tablet by mouth in the morning. [facility] losartan 100 mg tablet 11-07 00:00: 00 Yes [id number] Take 100mg qAM and 50mg qPM [facility] amitriptyli ne 10 mg tablet 11-07 00:00: 00 Yes [id number] 10mg Take 1 tablet by mouth at bedtime. [facility] apixaban (ELIQUIS) 2.5 mg tablet 11-07 00:00: 00 Yes 1358 2.5mg Take 1 tablet by mouth in the morning and 1 tablet in the evening. Indication s: atrial fibrillati on [facility] metoprolol succinate XL 100 mg 24 hr tablet 11-07 00:00: 00 Yes [id number] TAKE 1 TABLET BY MOUTH IN THE MORNING WITH FOOD [facility] furosemide 20 mg tablet 11-07 00:00: 00 Yes [id number] 20mg Take 1 tablet by mouth in the morning. [facility] losartan 100 mg tablet 11-07 00:00: 00 Yes [id number] Take 100mg qAM and 50mg qPM [facility] amitriptyli ne 10 mg tablet 11-07 00:00: 00 Yes [id number] 10mg Take 1 tablet by mouth at bedtime. [facility] apixaban (ELIQUIS) 2.5 mg tablet 11-07 00:00: 00 Yes 1358 2.5mg Take 1 tablet by mouth in the morning and 1 tablet in the evening. Indication s: atrial fibrillati on [facility] metoprolol succinate XL 100 mg 24 hr tablet 11-07 00:00: 00 Yes [id number] TAKE 1 TABLET BY MOUTH IN THE MORNING WITH FOOD [facility] furosemide 20 mg tablet 11-07 00:00: 00 Yes [id number] 20mg Take 1 tablet by mouth in the morning. [facility] losartan 100 mg tablet 11-07 00:00: 00 Yes [id number] Take 100mg qAM and 50mg qPM [facility] amitriptyli ne 10 mg tablet 11-07 00:00: 00 Yes [id number] 10mg Take 1 tablet by mouth at bedtime. [facility] apixaban (ELIQUIS) 2.5 mg tablet 11-07 00:00: 00 Yes 1358 2.5mg Take 1 tablet by mouth in the morning and 1 tablet in the evening. Indication s: atrial fibrillati on [facility] metoprolol succinate XL 100 mg 24 hr tablet 11-07 00:00: 00 Yes [id number] TAKE 1 TABLET BY MOUTH IN THE MORNING WITH FOOD [facility] furosemide 20 mg tablet 11-07 00:00: 00 Yes [id number] 20mg Take 1 tablet by mouth in the morning. [facility] losartan 100 mg tablet 11-07 00:00: 00 Yes [id number] Take 100mg qAM and 50mg qPM [facility] amitriptyli ne 10 mg tablet 11-07 00:00: 00 Yes [id number] 10mg Take 1 tablet by mouth at bedtime. [facility] apixaban (ELIQUIS) 2.5 mg tablet 11-07 00:00: 00 Yes 1358 2.5mg Take 1 tablet by mouth in the morning and 1 tablet in the evening. Indication s: atrial fibrillati on [facility] metoprolol succinate XL 100 mg 24 hr tablet 11-07 00:00: 00 Yes [id number] TAKE 1 TABLET BY MOUTH IN THE MORNING WITH FOOD [facility] furosemide 20 mg tablet 11-07 00:00: 00 Yes [id number] 20mg Take 1 tablet by mouth in the morning. [facility] losartan 100 mg tablet 11-07 00:00: 00 Yes [id number] Take 100mg qAM and 50mg qPM [facility] amitriptyli ne 10 mg tablet 11-07 00:00: 00 Yes [id number] 10mg Take 1 tablet by mouth at bedtime. [facility] apixaban (ELIQUIS) 2.5 mg tablet 11-07 00:00: 00 Yes 1358 2.5mg Take 1 tablet by mouth in the morning and 1 tablet in the evening. Indication s: atrial fibrillati on [facility] metoprolol succinate XL 100 mg 24 hr tablet 11-07 00:00: 00 Yes [id number] TAKE 1 TABLET BY MOUTH IN THE MORNING WITH FOOD [facility] furosemide 20 mg tablet 11-07 00:00: 00 Yes [id number] 20mg Take 1 tablet by mouth in the morning. [facility] losartan 100 mg tablet 11-07 00:00: 00 Yes [id number] Take 100mg qAM and 50mg qPM [facility] amitriptyli ne 10 mg tablet 11-07 00:00: 00 Yes [id number] 10mg Take 1 tablet by mouth at bedtime. [facility] apixaban (ELIQUIS) 2.5 mg tablet 11-07 00:00: 00 Yes 1358 2.5mg Take 1 tablet by mouth in the morning and 1 tablet in the evening. Indication s: atrial fibrillati on [facility] metoprolol succinate XL 100 mg 24 hr tablet 11-07 00:00: 00 Yes [id number] TAKE 1 TABLET BY MOUTH IN THE MORNING WITH FOOD [facility] furosemide 20 mg tablet 11-07 00:00: 00 Yes [id number] 20mg Take 1 tablet by mouth in the morning. [facility] losartan 100 mg tablet 11-07 00:00: 00 Yes [id number] Take 100mg qAM and 50mg qPM [facility] amitriptyli ne 10 mg tablet 0 11-07 00:00: 00 Yes [id number] 10mg Take 1 tablet by mouth at bedtime. [facility] apixaban (ELIQUIS) 2.5 mg tablet 11-07 00:00: 00 Yes 1358 2.5mg Take 1 tablet by mouth in the morning and 1 tablet in the evening. Indication s: atrial fibrillati on [facility] metoprolol succinate XL 100 mg 24 hr tablet 0 11-07 00:00: 00 Yes [id number] TAKE 1 TABLET BY MOUTH IN THE MORNING WITH FOOD [facility] furosemide 20 mg tablet 11-07 00:00: 00 Yes [id number] 20mg Take 1 tablet by mouth in the morning. [facility] losartan 100 mg tablet 11-07 00:00: 00 Yes [id number] Take 100mg qAM and 50mg qPM [facility] amitriptyli ne 10 mg tablet 11-07 00:00: 00 Yes [id number] 10mg Take 1 tablet by mouth at bedtime. [facility] apixaban (ELIQUIS) 2.5 mg tablet 0 11-07 00:00: 00 Yes 1358 2.5mg Take 1 tablet by mouth in the morning and 1 tablet in the evening. Indication s: atrial fibrillati on [facility] metoprolol succinate XL 100 mg 24 hr tablet 11-07 00:00: 00 Yes [id number] TAKE 1 TABLET BY MOUTH IN THE MORNING WITH FOOD [facility] furosemide 20 mg tablet 0 11-07 00:00: 00 Yes [id number] 20mg Take 1 tablet by mouth in the morning. [facility] losartan 100 mg tablet 0 11-07 00:00: 00 Yes [id number] Take 100mg qAM and 50mg qPM [facility] amitriptyli ne 10 mg tablet 0 11-07 00:00: 00 Yes [id number] 10mg Take 1 tablet by mouth at bedtime. [facility] apixaban (ELIQUIS) 2.5 mg tablet 11-07 00:00: 00 Yes 1358 2.5mg Take 1 tablet by mouth in the morning and 1 tablet in the evening. Indication s: atrial fibrillati on [facility] metoprolol succinate XL 100 mg 24 hr tablet 11-07 00:00: 00 Yes [id number] TAKE 1 TABLET BY MOUTH IN THE MORNING WITH FOOD [facility] furosemide 20 mg tablet 11-07 00:00: 00 Yes [id number] 20mg Take 1 tablet by mouth in the morning. [facility] losartan 100 mg tablet 11-07 00:00: 00 Yes [id number] Take 100mg qAM and 50mg qPM [facility] amitriptyli ne 10 mg tablet 11-07 00:00: 00 Yes [id number] 10mg Take 1 tablet by mouth at bedtime. [facility] apixaban (ELIQUIS) 2.5 mg tablet 11-07 00:00: 00 Yes 1358 2.5mg Take 1 tablet by mouth in the morning and 1 tablet in the evening. Indication s: atrial fibrillati on [facility] metoprolol succinate XL 100 mg 24 hr tablet 11-07 00:00: 00 Yes [id number] TAKE 1 TABLET BY MOUTH IN THE MORNING WITH FOOD [facility] furosemide 20 mg tablet 11-07 00:00: 00 Yes [id number] 20mg Take 1 tablet by mouth in the morning. [facility] losartan 100 mg tablet 11-07 00:00: 00 Yes [id number] Take 100mg qAM and 50mg qPM [facility] amitriptyli ne 10 mg tablet 11-07 00:00: 00 Yes [id number] 10mg Take 1 tablet by mouth at bedtime. [facility] apixaban (ELIQUIS) 2.5 mg tablet 11-07 00:00: 00 Yes 1358 2.5mg Take 1 tablet by mouth in the morning and 1 tablet in the evening. Indication s: atrial fibrillati on [facility] metoprolol succinate XL 100 mg 24 hr tablet 11-07 00:00: 00 Yes [id number] TAKE 1 TABLET BY MOUTH IN THE MORNING WITH FOOD [facility] furosemide 20 mg tablet 11-07 00:00: 00 Yes [id number] 20mg Take 1 tablet by mouth in the morning. [facility] losartan 100 mg tablet 11-07 00:00: 00 Yes [id number] Take 100mg qAM and 50mg qPM [facility] amitriptyli ne 10 mg tablet 11-07 00:00: 00 Yes [id number] 10mg Take 1 tablet by mouth at bedtime. [facility] apixaban (ELIQUIS) 2.5 mg tablet 11-07 00:00: 00 Yes 1358 2.5mg Take 1 tablet by mouth in the morning and 1 tablet in the evening. Indication s: atrial fibrillati on [facility] metoprolol succinate XL 100 mg 24 hr tablet 11-07 00:00: 00 Yes [id number] TAKE 1 TABLET BY MOUTH IN THE MORNING WITH FOOD [facility] furosemide 20 mg tablet 11-07 00:00: 00 Yes [id number] 20mg Take 1 tablet by mouth in the morning. [facility] losartan 100 mg tablet 11-07 00:00: 00 Yes [id number] Take 100mg qAM and 50mg qPM [facility] amitriptyli ne 10 mg tablet 11-07 00:00: 00 Yes [id number] 10mg Take 1 tablet by mouth at bedtime. [facility] apixaban (ELIQUIS) 2.5 mg tablet 11-07 00:00: 00 Yes 1358 2.5mg Take 1 tablet by mouth in the morning and 1 tablet in the evening. Indication s: atrial fibrillati on [facility] metoprolol succinate XL 100 mg 24 hr tablet 11-07 00:00: 00 Yes [id number] TAKE 1 TABLET BY MOUTH IN THE MORNING WITH FOOD [facility] furosemide 20 mg tablet 11-07 00:00: 00 Yes [id number] 20mg Take 1 tablet by mouth in the morning. [facility] losartan 100 mg tablet 11-07 00:00: 00 Yes [id number] Take 100mg qAM and 50mg qPM [facility] amitriptyli ne 10 mg tablet 11-07 00:00: 00 Yes [id number] 10mg Take 1 tablet by mouth at bedtime. [facility] apixaban (ELIQUIS) 2.5 mg tablet 11-07 00:00: 00 Yes 1358 2.5mg Take 1 tablet by mouth in the morning and 1 tablet in the evening. Indication s: atrial fibrillati on [facility] metoprolol succinate XL 100 mg 24 hr tablet 11-07 00:00: 00 Yes [id number] TAKE 1 TABLET BY MOUTH IN THE MORNING WITH FOOD [facility] furosemide 20 mg tablet 11-07 00:00: 00 Yes [id number] 20mg Take 1 tablet by mouth in the morning. [facility] losartan 100 mg tablet 11-07 00:00: 00 Yes [id number] Take 100mg qAM and 50mg qPM [facility] amitriptyli ne 10 mg tablet 11-07 00:00: 00 Yes [id number] 10mg Take 1 tablet by mouth at bedtime. [facility] apixaban (ELIQUIS) 2.5 mg tablet 11-07 00:00: 00 Yes 1358 2.5mg Take 1 tablet by mouth in the morning and 1 tablet in the evening. Indication s: atrial fibrillati on [facility] metoprolol succinate XL 100 mg 24 hr tablet 11-07 00:00: 00 Yes [id number] TAKE 1 TABLET BY MOUTH IN THE MORNING WITH FOOD [facility] furosemide 20 mg tablet 11-07 00:00: 00 Yes [id number] 20mg Take 1 tablet by mouth in the morning. [facility] losartan 100 mg tablet 11-07 00:00: 00 Yes [id number] Take 100mg qAM and 50mg qPM [facility] amitriptyli ne 10 mg tablet 11-07 00:00: 00 Yes [id number] 10mg Take 1 tablet by mouth at bedtime. [facility] apixaban (ELIQUIS) 2.5 mg tablet 11-07 00:00: 00 Yes 1358 2.5mg Take 1 tablet by mouth in the morning and 1 tablet in the evening. Indication s: atrial fibrillati on [facility] metoprolol succinate XL 100 mg 24 hr tablet 0 11-07 00:00: 00 Yes [id number] TAKE 1 TABLET BY MOUTH IN THE MORNING WITH FOOD [facility] furosemide 20 mg tablet 0 11-07 00:00: 00 Yes [id number] 20mg Take 1 tablet by mouth in the morning. [facility] losartan 100 mg tablet 11-07 00:00: 00 Yes [id number] Take 100mg qAM and 50mg qPM [facility] amitriptyli ne 10 mg tablet 11-07 00:00: 00 Yes [id number] 10mg Take 1 tablet by mouth at bedtime. [facility] apixaban (ELIQUIS) 2.5 mg tablet 0 11-07 00:00: 00 Yes 1358 2.5mg Take 1 tablet by mouth in the morning and 1 tablet in the evening. Indication s: atrial fibrillati on [facility] metoprolol succinate XL 100 mg 24 hr tablet 0 11-07 00:00: 00 Yes [id number] TAKE 1 TABLET BY MOUTH IN THE MORNING WITH FOOD [facility] furosemide 20 mg tablet 0 11-07 00:00: 00 Yes [id number] 20mg Take 1 tablet by mouth in the morning. [facility] losartan 100 mg tablet 0 11-07 00:00: 00 Yes [id number] Take 100mg qAM and 50mg qPM [facility] amitriptyli ne 10 mg tablet 0 11-07 00:00: 00 Yes [id number] 10mg Take 1 tablet by mouth at bedtime. [facility] apixaban (ELIQUIS) 2.5 mg tablet 11-07 00:00: 00 Yes 1358 2.5mg Take 1 tablet by mouth in the morning and 1 tablet in the evening. Indication s: atrial fibrillati on [facility] metoprolol succinate XL 100 mg 24 hr tablet 0 11-07 00:00: 00 Yes [id number] TAKE 1 TABLET BY MOUTH IN THE MORNING WITH FOOD [facility] furosemide 20 mg tablet 0 11-07 00:00: 00 Yes [id number] 20mg Take 1 tablet by mouth in the morning. [facility] losartan 100 mg tablet 11-07 00:00: 00 Yes [id number] Take 100mg qAM and 50mg qPM [facility] amitriptyli ne 10 mg tablet 11-07 00:00: 00 Yes [id number] 10mg Take 1 tablet by mouth at bedtime. [facility] apixaban (ELIQUIS) 2.5 mg tablet 11-07 00:00: 00 Yes 1358 2.5mg Take 1 tablet by mouth in the morning and 1 tablet in the evening. Indication s: atrial fibrillati on [facility] metoprolol succinate XL 100 mg 24 hr tablet 0 11-07 00:00: 00 Yes [id number] TAKE 1 TABLET BY MOUTH IN THE MORNING WITH FOOD [facility] furosemide 20 mg tablet 11-07 00:00: 00 Yes [id number] 20mg Take 1 tablet by mouth in the morning. [facility] losartan 100 mg tablet 11-07 00:00: 00 Yes [id number] Take 100mg qAM and 50mg qPM [facility] amitriptyli ne 10 mg tablet 0 11-07 00:00: 00 Yes [id number] 10mg Take 1 tablet by mouth at bedtime. [facility] apixaban (ELIQUIS) 2.5 mg tablet 0 11-07 00:00: 00 Yes 1358 2.5mg Take 1 tablet by mouth in the morning and 1 tablet in the evening. Indication s: atrial fibrillati on [facility] metoprolol succinate XL 100 mg 24 hr tablet 11-07 00:00: 00 Yes [id number] TAKE 1 TABLET BY MOUTH IN THE MORNING WITH FOOD [facility] hydroCHLORO thiazide 50 mg tablet 11-07 00:00: 00 Yes [id number] TAKE 1 TABLET BY MOUTH ONCE DAILY [facility] furosemide 20 mg tablet 11-07 00:00: 00 Yes [id number] 20mg Take 1 tablet by mouth in the morning. [facility] losartan 100 mg tablet 11-07 00:00: 00 Yes [id number] Take 100mg qAM and 50mg qPM [facility] amitriptyli ne 10 mg tablet 11-07 00:00: 00 Yes [id number] 10mg Take 1 tablet by mouth at bedtime. [facility] apixaban (ELIQUIS) 2.5 mg tablet 11-07 00:00: 00 Yes 1358 2.5mg Take 1 tablet by mouth in the morning and 1 tablet in the evening. Indication s: atrial fibrillati on [facility] busPIRone 5 mg tablet 11-07 00:00: 00 Yes [id number] 5mg Take 1 tablet by mouth in the morning and 1 tablet in the evening. [facility] metoprolol succinate XL 100 mg 24 hr tablet 11-07 00:00: 00 Yes [id number] TAKE 1 TABLET BY MOUTH IN THE MORNING WITH FOOD [facility] hydroCHLORO thiazide 50 mg tablet 11-07 00:00: 00 Yes [id number] TAKE 1 TABLET BY MOUTH ONCE DAILY [facility] furosemide 20 mg tablet 11-07 00:00: 00 Yes [id number] 20mg Take 1 tablet by mouth in the morning. [facility] losartan 100 mg tablet 11-07 00:00: 00 Yes [id number] Take 100mg qAM and 50mg qPM [facility] amitriptyli ne 10 mg tablet 11-07 00:00: 00 Yes [id number] 10mg Take 1 tablet by mouth at bedtime. [facility] apixaban (ELIQUIS) 2.5 mg tablet 11-07 00:00: 00 Yes 1358 2.5mg Take 1 tablet by mouth in the morning and 1 tablet in the evening. Indication s: atrial fibrillati on [facility] busPIRone 5 mg tablet 11-07 00:00: 00 Yes [id number] 5mg Take 1 tablet by mouth in the morning and 1 tablet in the evening. [facility] metoprolol succinate XL 100 mg 24 hr tablet 11-07 00:00: 00 Yes [id number] TAKE 1 TABLET BY MOUTH IN THE MORNING WITH FOOD [facility] hydroCHLORO thiazide 50 mg tablet 11-07 00:00: 00 Yes [id number] TAKE 1 TABLET BY MOUTH ONCE DAILY [facility] furosemide 20 mg tablet 11-07 00:00: 00 Yes [id number] 20mg Take 1 tablet by mouth in the morning. [facility] losartan 100 mg tablet 11-07 00:00: 00 Yes [id number] Take 100mg qAM and 50mg qPM [facility] amitriptyli ne 10 mg tablet 11-07 00:00: 00 Yes [id number] 10mg Take 1 tablet by mouth at bedtime. [facility] apixaban (ELIQUIS) 2.5 mg tablet 11-07 00:00: 00 Yes 1358 2.5mg Take 1 tablet by mouth in the morning and 1 tablet in the evening. Indication s: atrial fibrillati on [facility] busPIRone 5 mg tablet 11-07 00:00: 00 Yes [id number] 5mg Take 1 tablet by mouth in the morning and 1 tablet in the evening. [facility] metoprolol succinate XL 100 mg 24 hr tablet 11-07 00:00: 00 Yes [id number] TAKE 1 TABLET BY MOUTH IN THE MORNING WITH FOOD [facility] hydroCHLORO thiazide 50 mg tablet 11-07 00:00: 00 Yes [id number] TAKE 1 TABLET BY MOUTH ONCE DAILY [facility] furosemide 20 mg tablet 11-07 00:00: 00 Yes [id number] 20mg Take 1 tablet by mouth in the morning. [facility] losartan 100 mg tablet 11-07 00:00: 00 Yes [id number] Take 100mg qAM and 50mg qPM [facility] amitriptyli ne 10 mg tablet 11-07 00:00: 00 Yes [id number] 10mg Take 1 tablet by mouth at bedtime. [facility] apixaban (ELIQUIS) 2.5 mg tablet 11-07 00:00: 00 Yes 1358 2.5mg Take 1 tablet by mouth in the morning and 1 tablet in the evening. Indication s: atrial fibrillati on [facility] busPIRone 5 mg tablet 11-07 00:00: 00 Yes [id number] 5mg Take 1 tablet by mouth in the morning and 1 tablet in the evening. [facility] metoprolol succinate XL 100 mg 24 hr tablet 11-07 00:00: 00 Yes [id number] TAKE 1 TABLET BY MOUTH IN THE MORNING WITH FOOD [facility] hydroCHLORO thiazide 50 mg tablet 11-07 00:00: 00 Yes [id number] TAKE 1 TABLET BY MOUTH ONCE DAILY [facility] furosemide 20 mg tablet 11-07 00:00: 00 Yes [id number] 20mg Take 1 tablet by mouth in the morning. [facility] losartan 100 mg tablet 11-07 00:00: 00 Yes [id number] Take 100mg qAM and 50mg qPM [facility] amitriptyli ne 10 mg tablet 11-07 00:00: 00 Yes [id number] 10mg Take 1 tablet by mouth at bedtime. [facility] apixaban (ELIQUIS) 2.5 mg tablet 11-07 00:00: 00 Yes 1358 2.5mg Take 1 tablet by mouth in the morning and 1 tablet in the evening. Indication s: atrial fibrillati on [facility] metoprolol succinate XL 100 mg 24 hr tablet 11-07 00:00: 00 Yes [id number] TAKE 1 TABLET BY MOUTH IN THE MORNING WITH FOOD [facility] hydroCHLORO thiazide 50 mg tablet 11-07 00:00: 00 Yes [id number] TAKE 1 TABLET BY MOUTH ONCE DAILY [facility] furosemide 20 mg tablet 11-07 00:00: 00 Yes [id number] 20mg Take 1 tablet by mouth in the morning. [facility] losartan 100 mg tablet 11-07 00:00: 00 Yes [id number] Take 100mg qAM and 50mg qPM [facility] amitriptyli ne 10 mg tablet 11-07 00:00: 00 Yes [id number] 10mg Take 1 tablet by mouth at bedtime. [facility] apixaban (ELIQUIS) 2.5 mg tablet 11-07 00:00: 00 Yes 1358 2.5mg Take 1 tablet by mouth in the morning and 1 tablet in the evening. Indication s: atrial fibrillati on [facility] metoprolol succinate XL 100 mg 24 hr tablet 11-07 00:00: 00 Yes [id number] TAKE 1 TABLET BY MOUTH IN THE MORNING WITH FOOD [facility] hydroCHLORO thiazide 50 mg tablet 11-07 00:00: 00 Yes [id number] TAKE 1 TABLET BY MOUTH ONCE DAILY [facility] furosemide 20 mg tablet 11-07 00:00: 00 Yes [id number] 20mg Take 1 tablet by mouth in the morning. [facility] losartan 100 mg tablet 11-07 00:00: 00 Yes [id number] Take 100mg qAM and 50mg qPM [facility] amitriptyli ne 10 mg tablet 11-07 00:00: 00 Yes [id number] 10mg Take 1 tablet by mouth at bedtime. [facility] apixaban (ELIQUIS) 2.5 mg tablet 11-07 00:00: 00 Yes 1358 2.5mg Take 1 tablet by mouth in the morning and 1 tablet in the evening. Indication s: atrial fibrillati on [facility] metoprolol succinate XL 100 mg 24 hr tablet 11-07 00:00: 00 05-09 00:00 :00 No [id number] TAKE 1 TABLET BY MOUTH IN THE MORNING WITH FOOD [facility] furosemide 20 mg tablet 11-07 00:00: 00 05-09 00:00 :00 No [id number] 20mg Take 1 tablet by mouth in the morning. [facility] losartan 100 mg tablet 11-07 00:00: 00 05-09 00:00 :00 No [id number] Take 100mg qAM and 50mg qPM [facility] amitriptyli ne 10 mg tablet 11-07 00:00: 00 05-09 00:00 :00 No [id number] 10mg Take 1 tablet by mouth at bedtime. [facility] apixaban (ELIQUIS) 2.5 mg tablet 11-07 00:00: 00 05-09 00:00 :00 No 1358 2.5mg Take 1 tablet by mouth in the morning and 1 tablet in the evening. Indication s: atrial fibrillati on [facility] metoprolol succinate XL 100 mg 24 hr tablet 11-07 00:00: 00 05-09 00:00 :00 No [id number] TAKE 1 TABLET BY MOUTH IN THE MORNING WITH FOOD [facility] furosemide 20 mg tablet 11-07 00:00: 00 05-09 00:00 :00 No [id number] 20mg Take 1 tablet by mouth in the morning. [facility] losartan 100 mg tablet 11-07 00:00: 00 05-09 00:00 :00 No [id number] Take 100mg qAM and 50mg qPM [facility] amitriptyli ne 10 mg tablet 11-07 00:00: 00 05-09 00:00 :00 No [id number] 10mg Take 1 tablet by mouth at bedtime. [facility] apixaban (ELIQUIS) 2.5 mg tablet 11-07 00:00: 05-09 00:00 :00 No 1358 2.5mg Take 1 tablet by mouth in the morning and 1 tablet in the evening. Indication s: atrial fibrillati on [facility] metoprolol succinate XL 100 mg 24 hr tablet 11-07 00:00: 00 05-09 00:00 :00 No [id number] TAKE 1 TABLET BY MOUTH IN THE MORNING WITH FOOD [facility] furosemide 20 mg tablet 11-07 00:00: 00 05-09 00:00 :00 No [id number] 20mg Take 1 tablet by mouth in the morning. [facility] losartan 100 mg tablet 11-07 00:00: 00 05-09 00:00 :00 No [id number] Take 100mg qAM and 50mg qPM [facility] amitriptyli ne 10 mg tablet 11-07 00:00: 00 05-09 00:00 :00 No [id number] 10mg Take 1 tablet by mouth at bedtime. [facility] apixaban (ELIQUIS) 2.5 mg tablet 11-07 00:00: 00 05-09 00:00 :00 No [id number] 2.5mg Take 1 tablet by mouth in the morning and 1 tablet in the evening. Indication s: atrial fibrillati on [facility] metoprolol succinate XL 100 mg 24 hr tablet 11-07 00:00: 00 05-09 00:00 :00 No [id number] TAKE 1 TABLET BY MOUTH IN THE MORNING WITH FOOD [facility] furosemide 20 mg tablet 11-07 00:00: 00 05-09 00:00 :00 No [id number] 20mg Take 1 tablet by mouth in the morning. [facility] losartan 100 mg tablet 11-07 00:00: 00 05-09 00:00 :00 No [id number] Take 100mg qAM and 50mg qPM [facility] amitriptyli ne 10 mg tablet 11-07 00:00: 00 05-09 00:00 :00 No [id number] 10mg Take 1 tablet by mouth at bedtime. [facility] apixaban (ELIQUIS) 2.5 mg tablet 11-07 00:00: 00 05-09 00:00 :00 No [id number] 2.5mg Take 1 tablet by mouth in the morning and 1 tablet in the evening. Indication s: atrial fibrillati on [facility] metoprolol succinate XL 100 mg 24 hr tablet 11-07 00:00: 00 05-09 00:00 :00 No [id number] TAKE 1 TABLET BY MOUTH IN THE MORNING WITH FOOD [facility] furosemide 20 mg tablet 11-07 00:00: 00 05-09 00:00 :00 No [id number] 20mg Take 1 tablet by mouth in the morning. [facility] losartan 100 mg tablet 11-07 00:00: 00 05-09 00:00 :00 No [id number] Take 100mg qAM and 50mg qPM [facility] amitriptyli ne 10 mg tablet 11-07 00:00: 00 05-09 00:00 :00 No [id number] 10mg Take 1 tablet by mouth at bedtime. [facility] apixaban (ELIQUIS) 2.5 mg tablet 11-07 00:00: 00 05-09 00:00 :00 No [id number] 2.5mg Take 1 tablet by mouth in the morning and 1 tablet in the evening. Indication s: atrial fibrillati on [facility] hydroCHLORO thiazide 50 mg tablet 11-07 00:00: 00 01-03 00:00 :00 No [id number] TAKE 1 TABLET BY MOUTH ONCE DAILY [facility] hydroCHLORO thiazide 50 mg tablet 11-07 00:00: 00 01-03 00:00 :00 No [id number] TAKE 1 TABLET BY MOUTH ONCE DAILY [facility] busPIRone 5 mg tablet 11-07 00:00: 00 11-22 00:00 :00 No [id number] 5mg Take 1 tablet by mouth in the morning and 1 tablet in the evening. [facility] busPIRone 5 mg tablet 11-07 00:00: 00 11-22 00:00 :00 No [id number] 5mg Take 1 tablet by mouth in the morning and 1 tablet in the evening. [facility] hydroCHLORO thiazide 50 mg tablet 11-01 00:00: 00 Yes [id number] TAKE 1 TABLET BY MOUTH ONCE DAILY [facility] hydroCHLORO thiazide 50 mg tablet 11-01 00:00: 00 11-07 00:00 :00 No [id number] TAKE 1 TABLET BY MOUTH ONCE DAILY [facility] hydroCHLORO thiazide 50 mg tablet 11-01 00:00: 00 11-07 00:00 :00 No [id number] TAKE 1 TABLET BY MOUTH ONCE DAILY [facility] METOPROLOL SUCCINATE XL 100 mg 24 hr tablet 10-26 00:00: 00 Yes [id number] TAKE 1 TABLET BY MOUTH IN THE MORNING WITH FOOD [facility] LOSARTAN 100 mg tablet 10-26 00:00: 00 Yes [id number] 100mg TAKE 1 TABLET BY MOUTH IN THE MORNING [facility] METOPROLOL SUCCINATE XL 100 mg 24 hr tablet 0 10-26 00:00: 00 Yes [id number] TAKE 1 TABLET BY MOUTH IN THE MORNING WITH FOOD [facility] LOSARTAN 100 mg tablet 10-26 00:00: 00 Yes [id number] 100mg TAKE 1 TABLET BY MOUTH IN THE MORNING [facility] METOPROLOL SUCCINATE XL 100 mg 24 hr tablet 10-26 00:00: 00 11-07 00:00 :00 No [id number] TAKE 1 TABLET BY MOUTH IN THE MORNING WITH FOOD [facility] LOSARTAN 100 mg tablet 10-26 00:00: 00 11-07 00:00 :00 No [id number] 100mg TAKE 1 TABLET BY MOUTH IN THE MORNING [facility] METOPROLOL SUCCINATE XL 100 mg 24 hr tablet 2022-0 5-19 00:00: 00 11-07 00:00 :00 No [id number] TAKE 1 TABLET BY MOUTH IN THE MORNING WITH FOOD [facility] LOSARTAN 100 mg tablet 2022-0 5-19 00:00: 00 11-07 00:00 :00 No [id number] 100mg TAKE 1 TABLET BY MOUTH IN THE MORNING [facility] AMITRIPTYLI NE 10 mg tablet 2022-0 2-27 00:00: 00 Yes [id number] TAKE 1/2 TABLET BY MOUTH AT BEDTIME [facility] AMITRIPTYLI NE 10 mg tablet 2022-0 2-27 00:00: 00 Yes [id number] TAKE 1/2 TABLET BY MOUTH AT BEDTIME [facility] AMITRIPTYLI NE 10 mg tablet 2022-0 2-27 00:00: 00 Yes [id number] TAKE 1/2 TABLET BY MOUTH AT BEDTIME [facility] AMITRIPTYLI NE 10 mg tablet 2022-0 2-27 00:00: 00 Yes [id number] TAKE 1/2 TABLET BY MOUTH AT BEDTIME [facility] AMITRIPTYLI NE 10 mg tablet 0 2-27 00:00: 00 Yes [id number] TAKE 1/2 TABLET BY MOUTH AT BEDTIME [facility] AMITRIPTYLI NE 10 mg tablet 0 2-27 00:00: 00 11-07 00:00 :00 No [id number] TAKE 1/2 TABLET BY MOUTH AT BEDTIME [facility] AMITRIPTYLI NE 10 mg tablet 0 2-27 00:00: 00 11-07 00:00 :00 No [id number] TAKE 1/2 TABLET BY MOUTH AT BEDTIME [facility] levocetiriz ine 5 mg tablet -09 00:00: 00 Yes [id number] 5mg TAKE 1 TABLET BY MOUTH AT BEDTIME NEEDED FOR ALLERGIES [facility] levocetiriz ine 5 mg tablet 2022-0 -09 00:00: 00 Yes [id number] 5mg TAKE 1 TABLET BY MOUTH AT BEDTIME NEEDED FOR ALLERGIES [facility] levocetiriz ine 5 mg tablet 2022-0 06-18 00:00: 00 Yes [id number] 5mg TAKE 1 TABLET BY MOUTH AT BEDTIME NEEDED FOR ALLERGIES [facility] levocetiriz ine 5 mg tablet 2022-0 06-18 00:00: 00 Yes [id number] 5mg TAKE 1 TABLET BY MOUTH AT BEDTIME NEEDED FOR ALLERGIES [facility] levocetiriz ine 5 mg tablet 2022-0 06-18 00:00: 00 Yes [id number] 5mg TAKE 1 TABLET BY MOUTH AT BEDTIME NEEDED FOR ALLERGIES [facility] tablet 2022-0 06-18 00:00: 00 Yes [id number] 5mg TAKE 1 TABLET BY MOUTH AT BEDTIME NEEDED FOR ALLERGIES [facility] levocetiriz ine 5 mg tablet 2022-0 06-18 00:00: 00 Yes [id number] 5mg TAKE 1 TABLET BY MOUTH AT BEDTIME NEEDED FOR ALLERGIES [facility] levocetiriz ine 5 mg tablet 2022-0 06-18 00:00: 00 Yes [id number] 5mg TAKE 1 TABLET BY MOUTH AT BEDTIME NEEDED FOR ALLERGIES [facility] levocetiriz ine 5 mg tablet 2022-0 06-18 00:00: 00 Yes [id number] 5mg TAKE 1 TABLET BY MOUTH AT BEDTIME NEEDED FOR ALLERGIES [facility] levocetiriz ine 5 mg tablet 2022-0 06-18 00:00: 00 Yes [id number] 5mg TAKE 1 TABLET BY MOUTH AT BEDTIME NEEDED FOR ALLERGIES [facility] levocetiriz ine 5 mg tablet 2022-0 06-18 00:00: 00 Yes [id number] 5mg TAKE 1 TABLET BY MOUTH AT BEDTIME NEEDED FOR ALLERGIES [facility] mg tablet 2022-0 06-18 00:00: 00 Yes [id number] 5mg TAKE 1 TABLET BY MOUTH AT BEDTIME NEEDED FOR ALLERGIES [facility] levocetiriz ine 5 mg tablet 2022-0 06-18 00:00: 00 Yes [id number] 5mg TAKE 1 TABLET BY MOUTH AT BEDTIME NEEDED FOR ALLERGIES [facility] levocetiriz ine 5 mg tablet 0 06-18 00:00: 00 Yes [id number] 5mg TAKE 1 TABLET BY MOUTH AT BEDTIME NEEDED FOR ALLERGIES [facility] levocetiriz ine 5 mg tablet 0 06-18 00:00: 00 Yes [id number] 5mg TAKE 1 TABLET BY MOUTH AT BEDTIME NEEDED FOR ALLERGIES [facility] levocetiriz ine 5 mg tablet 0 06-18 00:00: 00 Yes [id number] 5mg TAKE 1 TABLET BY MOUTH AT BEDTIME NEEDED FOR ALLERGIES [facility] levocetiriz ine 5 mg tablet 0 06-18 00:00: 00 Yes [id number] 5mg TAKE 1 TABLET BY MOUTH AT BEDTIME NEEDED FOR ALLERGIES [facility] levocetiriz ine 5 mg tablet 06-18 00:00: 00 Yes [id number] 5mg TAKE 1 TABLET BY MOUTH AT BEDTIME NEEDED FOR ALLERGIES [facility] levocetiriz ine 5 mg tablet 06-18 00:00: 00 01-03 00:00 :00 No [id number] 5mg TAKE 1 TABLET BY MOUTH AT BEDTIME NEEDED FOR ALLERGIES [facility] levocetiriz ine 5 mg tablet 06-18 00:00: 00 01-03 00:00 :00 No [id number] 5mg TAKE 1 TABLET BY MOUTH AT BEDTIME NEEDED FOR ALLERGIES [facility] ondansetron 4 mg tablet 2021-06 11:14: 03 Yes 4mg Take 4 mg by mouth every 8 (eight) hours as needed. [facility] on[facility] mg tablet 2021-06 11:14: 03 Yes 4mg Take 4 mg by mouth every 8 (eight) hours as needed. [facility] ondansetron 4 mg tablet 2021-06 11:14: 03 Yes 4mg Take 4 mg by mouth every 8 (eight) hours as needed. [facility] ondans[facility]ron 4 mg tablet 2021-06 11:14: 03 Yes 4mg Take 4 mg by mouth every 8 (eight) hours as needed. [facility] ondansetron 4 mg tablet 2021-06 11:14: 03 Yes 4mg Take 4 mg by mouth every 8 (eight) hours as needed. [facility] ondansetron 4 mg tablet 2021-06 11:14: 03 Yes 4mg Take 4 mg by mouth every 8 (eight) hours as needed. [facility] on[facility]ron [facility] mg tablet 2021-06 11:14: 03 Yes 4mg Take 4 mg by mouth every 8 (eight) hours as needed. [facility] ondansetron 4 mg tablet 2021-06 11:14: 03 Yes 4mg Take 4 mg by mouth every 8 (eight) hours as needed. [facility] ondansetron 4 mg tablet 2021-06 11:14: 03 Yes 4mg Take 4 mg by mouth every 8 (eight) hours as needed. [facility] ondansetron 4 mg tablet 2021-06 11:14: 03 Yes 4mg Take 4 mg by mouth every 8 (eight) hours as needed. [facility] ondansetron 4 mg tablet 2021-06 11:14: 03 Yes 4mg Take 4 mg by mouth every 8 (eight) hours as needed. [facility] ondansetron 4 mg tablet 2021-06 11:14: 03 Yes 4mg Take 4 mg by mouth every 8 (eight) hours as needed. [facility] ondansetron 4 mg tablet 2021-06 11:14: 03 Yes 4mg Take 4 mg by mouth every 8 (eight) hours as needed. [facility] ondansetron 4 mg tablet 2021-06 11:14: 03 Yes 4mg Take 4 mg by mouth every 8 (eight) hours as needed. [facility] ondansetron 4 mg tablet 2021-06 11:14: 03 Yes 4mg Take 4 mg by mouth every 8 (eight) hours as needed. [facility] ondansetron 4 mg tablet 2021-06 11:14: 03 Yes 4mg Take 4 mg by mouth every 8 (eight) hours as needed. [facility] on[facility] mg tablet 2021-06 11:14: 03 Yes 4mg Take 4 mg by mouth every 8 (eight) hours as needed. [facility] ondans[facility]ron 4 mg tablet 2021-06 11:14: 03 Yes 4mg Take 4 mg by mouth every 8 (eight) hours as needed. [facility] ondans[facility]ron 4 mg tablet 2021-06 11:14: 03 Yes 4mg Take 4 mg by mouth every 8 (eight) hours as needed. [facility] ondansetron 4 mg tablet 2021-06 11:14: 03 Yes 4mg Take 4 mg by mouth every 8 (eight) hours as needed. [facility] ondansetron 4 mg tablet 2021-06 11:14: 03 Yes 4mg Take 4 mg by mouth every 8 (eight) hours as needed. [facility] ondansetron 4 mg tablet 2021-06 11:14: 03 Yes 4mg Take 4 mg by mouth every 8 (eight) hours as needed. [facility] ondansetron 4 mg tablet 2021-06 11:14: 03 Yes 4mg Take 4 mg by mouth every 8 (eight) hours as needed. [facility] ondansetron 4 mg tablet 2021-06 11:14: 03 Yes 4mg Take 4 mg by mouth every 8 (eight) hours as needed. [facility] ondansetron 4 mg tablet 2021-06 11:14: 03 Yes 4mg Take 4 mg by mouth every 8 (eight) hours as needed. [facility] ondansetron 4 mg tablet 2021-06 11:14: 03 Yes 4mg Take 4 mg by mouth every 8 (eight) hours as needed. [facility] ondansetron 4 mg tablet 2021-06 11:14: 03 Yes 4mg Take 4 mg by mouth every 8 (eight) hours as needed. [facility] ondans[facility]ron 4 mg tablet 2021-06 11:14: 03 Yes 4mg Take 4 mg by mouth every 8 (eight) hours as needed. [facility] ondansetron 4 mg tablet 2021-06 11:14: 03 Yes 4mg Take 4 mg by mouth every 8 (eight) hours as needed. [facility] ondansetron 4 mg tablet 2021-06 11:14: 03 Yes 4mg Take 4 mg by mouth every 8 (eight) hours as needed. [facility] ondansetron 4 mg tablet 2021-06 11:14: 03 Yes 4mg Take 4 mg by mouth every 8 (eight) hours as needed. [facility] ondansetron 4 mg tablet 2021-06 11:14: 03 Yes 4mg Take 4 mg by mouth every 8 (eight) hours as needed. [facility] ondansetron 4 mg tablet 2021-06 11:14: 03 Yes 4mg Take 4 mg by mouth every 8 (eight) hours as needed. [facility] ondansetron 4 mg tablet 2021-06 11:14: 03 Yes 4mg Take 4 mg by mouth every 8 (eight) hours as needed. [facility] ondansetron 4 mg tablet 2021-06 11:14: 03 Yes 4mg Take 4 mg by mouth every 8 (eight) hours as needed. [facility] ondansetron 4 mg tablet 2021-06 11:14: 03 Yes 4mg Take 4 mg by mouth every 8 (eight) hours as needed. [facility] ondansetron 4 mg tablet 2021-06 11:14: 03 Yes 4mg Take 4 mg by mouth every 8 (eight) hours as needed. [facility] ondansetron 4 mg tablet 2021-06 11:14: 03 Yes 4mg Take 4 mg by mouth every 8 (eight) hours as needed. [facility] ondansetron 4 mg tablet 2021-06 11:14: 03 Yes 4mg Take 4 mg by mouth every 8 (eight) hours as needed. [facility] on[facility]ron [facility] mg tablet 2021-06 11:14: 03 Yes 4mg Take 4 mg by mouth every 8 (eight) hours as needed. [facility] ondansetron 4 mg tablet 2021-06 11:14: 03 Yes 4mg Take 4 mg by mouth every 8 (eight) hours as needed. [facility] ondansetron 4 mg tablet 2021-06 11:14: 03 Yes 4mg Take 4 mg by mouth every 8 (eight) hours as needed. [facility] ondansetron 4 mg tablet 2021-06 11:14: 03 Yes 4mg Take 4 mg by mouth every 8 (eight) hours as needed. [facility] ondansetron 4 mg tablet 2021-06 11:14: 03 Yes 4mg Take 4 mg by mouth every 8 (eight) hours as needed. [facility] ondansetron 4 mg tablet 2021-06 11:14: 03 Yes 4mg Take 4 mg by mouth every 8 (eight) hours as needed. [facility] ondansetron 4 mg tablet 2021-06 11:14: 03 Yes 4mg Take 4 mg by mouth every 8 (eight) hours as needed. [facility] ondansetron 4 mg tablet 2021-06 11:14: 03 Yes 4mg Take 4 mg by mouth every 8 (eight) hours as needed. [facility] ondans[facility]ron 4 mg tablet 2021-06 11:14: 03 Yes 4mg Take 4 mg by mouth every 8 (eight) hours as needed. [facility] ondansetron 4 mg tablet 2021-06 11:14: 03 Yes 4mg Take 4 mg by mouth every 8 (eight) hours as needed. [facility] ondansetron 4 mg tablet 2021-06 11:14: 03 Yes 4mg Take 4 mg by mouth every 8 (eight) hours as needed. [facility] ondansetron 4 mg tablet 2021-06 11:14: 03 Yes 4mg Take 4 mg by mouth every 8 (eight) hours as needed. [facility] ondansetron 4 mg tablet 2021-06 11:14: 03 Yes 4mg Take 4 mg by mouth every 8 (eight) hours as needed. [facility] ondansetron 4 mg tablet 2021-06 11:14: 03 Yes 4mg Take 4 mg by mouth every 8 (eight) hours as needed. [facility] ondansetron 4 mg tablet 2021-06 11:14: 03 Yes 4mg Take 4 mg by mouth every 8 (eight) hours as needed. [facility] ondansetron 4 mg tablet 2021-06 11:14: 03 Yes 4mg Take 4 mg by mouth every 8 (eight) hours as needed. [facility] ondansetron 4 mg tablet 2021-06 11:14: 03 Yes 4mg Take 4 mg by mouth every 8 (eight) hours as needed. [facility] ondansetron 4 mg tablet 2021-06 11:14: 03 Yes 4mg Take 4 mg by mouth every 8 (eight) hours as needed. [facility] ondansetron 4 mg tablet 2021-06 11:14: 03 Yes 4mg Take 4 mg by mouth every 8 (eight) hours as needed. [facility] ondansetron 4 mg tablet 2021-06 11:14: 03 Yes 4mg Take 4 mg by mouth every 8 (eight) hours as needed. [facility] ondansetron 4 mg tablet 2021-06 11:14: 03 Yes 4mg Take 4 mg by mouth every 8 (eight) hours as needed. [facility] ondansetron 4 mg tablet 2021-06 11:14: 03 Yes 4mg Take 4 mg by mouth every 8 (eight) hours as needed. [facility] ondansetron 4 mg tablet 2021-06 11:14: 03 Yes 4mg Take 4 mg by mouth every 8 (eight) hours as needed. [facility]ron [facility] mg tablet 2021-06 11:14: 03 Yes 4mg Take 4 mg by mouth every 8 (eight) hours as needed. [facility] ondansetron 4 mg tablet 2021-06 11:14: 03 Yes 4mg Take 4 mg by mouth every 8 (eight) hours as needed. [facility] ondansetron 4 mg tablet 2021-06 11:14: 03 Yes 4mg Take 4 mg by mouth every 8 (eight) hours as needed. [facility] ondansetron 4 mg tablet 2021-06 11:14: 03 Yes 4mg Take 4 mg by mouth every 8 (eight) hours as needed. [facility] ondansetron 4 mg tablet 2021-06 11:14: 03 Yes 4mg Take 4 mg by mouth every 8 (eight) hours as needed. [facility] ondansetron 4 mg tablet 2021-06 11:14: 03 Yes 4mg Take 4 mg by mouth every 8 (eight) hours as needed. [facility] ondansetron 4 mg tablet 2021-06 11:14: 03 Yes 4mg Take 4 mg by mouth every 8 (eight) hours as needed. [facility] ondansetron 4 mg tablet 2021-06 11:14: 03 Yes 4mg Take 4 mg by mouth every 8 (eight) hours as needed. [facility] ondansetron 4 mg tablet 2021-06 11:14: 03 Yes 4mg Take 4 mg by mouth every 8 (eight) hours as needed. [facility] ondansetron 4 mg tablet 2021-06 11:14: 03 Yes 4mg Take 4 mg by mouth every 8 (eight) hours as needed. [facility] ondansetron 4 mg tablet 2021-06 11:14: 03 Yes 4mg Take 4 mg by mouth every 8 (eight) hours as needed. [facility] ondansetron 4 mg tablet 2021-06 11:14: 03 Yes 4mg Take 4 mg by mouth every 8 (eight) hours as needed. [facility] on[facility]ron [facility] mg tablet 2021-06 11:14: 03 Yes 4mg Take 4 mg by mouth every 8 (eight) hours as needed. [facility] ondansetron 4 mg tablet 2021-06 11:14: 03 Yes 4mg Take 4 mg by mouth every 8 (eight) hours as needed. [facility] ondansetron 4 mg tablet 2021-06 11:14: 03 Yes 4mg Take 4 mg by mouth every 8 (eight) hours as needed. [facility] ondansetron 4 mg tablet 2021-06 11:14: 03 Yes 4mg Take 4 mg by mouth every 8 (eight) hours as needed. [facility] lidocaine 5 % ointment 2021-06 00:00: 00 Yes [id number] Apply 2g to affected areas BID PRN [facility] Diclofenac Sodium (VOLTAREN) 1 % gel 2021-06 00:00: 00 Yes [id number] Apply 4g to affected area QID [facility] lidocaine 5 % ointment 2021-06 00:00: 00 Yes [id number] Apply 2g to affected areas BID PRN [facility] Diclofenac Sodium (VOLTAREN) 1 % gel 2021-06 00:00: 00 Yes [id number] Apply 4g to affected area QID [facility] lidocaine 5 % ointment 2021-06 00:00: 00 Yes [id number] Apply 2g to affected areas BID PRN [facility] Diclofenac Sodium (VOLTAREN) 1 % gel 2021-06 00:00: 00 Yes [id number] Apply 4g to affected area QID [facility] lidocaine 5 % ointment 2021-06 00:00: 00 Yes [id number] Apply 2g to affected areas BID PRN [facility] Diclofenac Sodium (VOLTAREN) 1 % gel 2021-06 00:00: 00 Yes [id number] Apply 4g to affected area QID [facility] lidocaine 5 % ointment 2021-06 00:00: 00 Yes [id number] Apply 2g to affected areas BID PRN [facility] Diclofenac Sodium (VOLTAREN) 1 % gel 2021-06 00:00: 00 Yes [id number] Apply 4g to affected area QID [facility] lidocaine 5 % ointment 2021-06 00:00: 00 Yes [id number] Apply 2g to affected areas BID PRN [facility] Diclofenac Sodium (VOLTAREN) 1 % gel 2021-06 00:00: 00 Yes [id number] Apply 4g to affected area QID [facility] lidocaine 5 % ointment 2021-06 00:00: 00 Yes [id number] Apply 2g to affected areas BID PRN [facility] Diclofenac Sodium (VOLTAREN) 1 % gel 2021-06 00:00: 00 Yes [id number] Apply 4g to affected area QID [facility] lidocaine 5 % ointment 2021-06 00:00: 00 Yes [id number] Apply 2g to affected areas BID PRN [facility] Diclofenac Sodium (VOLTAREN) 1 % gel 2021-06 00:00: 00 Yes [id number] Apply 4g to affected area QID [facility] lidocaine 5 % ointment 2021-06 00:00: 00 Yes [id number] Apply 2g to affected areas BID PRN [facility] Diclofenac Sodium (VOLTAREN) 1 % gel 2021-06 00:00: 00 Yes [id number] Apply 4g to affected area QID [facility] lidocaine 5 % ointment 2021-06 00:00: 00 Yes [id number] Apply 2g to affected areas BID PRN [facility] Diclofenac Sodium (VOLTAREN) 1 % gel 2021-06 00:00: 00 Yes [id number] Apply 4g to affected area QID [facility] lidocaine 5 % ointment 2021-06 00:00: 00 Yes [id number] Apply 2g to affected areas BID PRN [facility] Diclofenac Sodium (VOLTAREN) 1 % gel 2021-06 00:00: 00 Yes [id number] Apply 4g to affected area QID [facility] lidocaine 5 % ointment 2021-06 00:00: 00 Yes [id number] Apply 2g to affected areas BID PRN [facility] Diclofenac Sodium (VOLTAREN) 1 % gel 2021-06 00:00: 00 Yes [id number] Apply 4g to affected area QID [facility] lidocaine 5 % ointment 2021-06 00:00: 00 Yes [id number] Apply 2g to affected areas BID PRN [facility] Diclofenac Sodium (VOLTAREN) 1 % gel 2021-06 00:00: 00 Yes [id number] Apply 4g to affected area QID [facility] lidocaine 5 % ointment 2021-06 00:00: 00 Yes [id number] Apply 2g to affected areas BID PRN [facility] Diclofenac Sodium (VOLTAREN) 1 % gel 2021-06 00:00: 00 Yes [id number] Apply 4g to affected area QID [facility] lidocaine 5 % ointment 2021-06 00:00: 00 Yes [id number] Apply 2g to affected areas BID PRN [facility] Diclofenac Sodium (VOLTAREN) 1 % gel 2021-06 00:00: 00 Yes [id number] Apply 4g to affected area QID [facility] lidocaine 5 % ointment 2021-06 00:00: 00 Yes [id number] Apply 2g to affected areas BID PRN [facility] Diclofenac Sodium (VOLTAREN) 1 % gel 2021-06 00:00: 00 Yes [id number] Apply 4g to affected area QID [facility] lidocaine 5 % ointment 2021-06 00:00: 00 Yes [id number] Apply 2g to affected areas BID PRN [facility] Diclofenac Sodium (VOLTAREN) 1 % gel 2021-06 00:00: 00 Yes [id number] Apply 4g to affected area QID [facility] lidocaine 5 % ointment 2021-06 00:00: 00 Yes [id number] Apply 2g to affected areas BID PRN [facility] Diclofenac Sodium (VOLTAREN) 1 % gel 2021-06 00:00: 00 Yes [id number] Apply 4g to affected area QID [facility] lidocaine 5 % ointment 2021-06 00:00: 00 Yes [id number] Apply 2g to affected areas BID PRN [facility] Diclofenac Sodium (VOLTAREN) 1 % gel 2021-06 00:00: 00 Yes [id number] Apply 4g to affected area QID [facility] lidocaine 5 % ointment 2021-06 00:00: 00 Yes [id number] Apply 2g to affected areas BID PRN [facility] Diclofenac Sodium (VOLTAREN) 1 % gel 2021-06 00:00: 00 Yes [id number] Apply 4g to affected area QID [facility] lidocaine 5 % ointment 2021-06 00:00: 00 Yes [id number] Apply 2g to affected areas BID PRN [facility] Diclofenac Sodium (VOLTAREN) 1 % gel 2021-06 00:00: 00 Yes [id number] Apply 4g to affected area QID [facility] lidocaine 5 % ointment 2021-06 00:00: 00 Yes [id number] Apply 2g to affected areas BID PRN [facility] Diclofenac Sodium (VOLTAREN) 1 % gel 2021-06 00:00: 00 Yes [id number] Apply 4g to affected area QID [facility] lidocaine 5 % ointment 2021-06 00:00: 00 Yes [id number] Apply 2g to affected areas BID PRN [facility] Diclofenac Sodium (VOLTAREN) 1 % gel 2021-06 00:00: 00 Yes [id number] Apply 4g to affected area QID [facility] lidocaine 5 % ointment 2021-06 00:00: 00 Yes [id number] Apply 2g to affected areas BID PRN [facility] Diclofenac Sodium (VOLTAREN) 1 % gel 2021-06 00:00: 00 Yes [id number] Apply 4g to affected area QID [facility] lidocaine 5 % ointment 2021-06 00:00: 00 Yes [id number] Apply 2g to affected areas BID PRN [facility] Diclofenac Sodium (VOLTAREN) 1 % gel 2021-06 00:00: 00 Yes [id number] Apply 4g to affected area QID [facility] lidocaine 5 % ointment 2021-06 00:00: 00 Yes [id number] Apply 2g to affected areas BID PRN [facility] Diclofenac Sodium (VOLTAREN) 1 % gel 2021-06 00:00: 00 Yes [id number] Apply 4g to affected area QID [facility] lidocaine 5 % ointment 2021-06 00:00: 00 Yes [id number] Apply 2g to affected areas BID PRN [facility] Diclofenac Sodium (VOLTAREN) 1 % gel 2021-06 00:00: 00 Yes [id number] Apply 4g to affected area QID [facility] lidocaine 5 % ointment 2021-06 00:00: 00 Yes [id number] Apply 2g to affected areas BID PRN [facility] Diclofenac Sodium (VOLTAREN) 1 % gel 2021-06 00:00: 00 Yes [id number] Apply 4g to affected area QID [facility] lidocaine 5 % ointment 2021-06 00:00: 00 Yes [id number] Apply 2g to affected areas BID PRN [facility] Diclofenac Sodium (VOLTAREN) 1 % gel 2021-06 00:00: 00 Yes [id number] Apply 4g to affected area QID [facility] lidocaine 5 % ointment 2021-06 00:00: 00 Yes [id number] Apply 2g to affected areas BID PRN [facility] Diclofenac Sodium (VOLTAREN) 1 % gel 2021-06 00:00: 00 Yes [id number] Apply 4g to affected area QID [facility] lidocaine 5 % ointment 2021-06 00:00: 00 Yes [id number] Apply 2g to affected areas BID PRN [facility] Diclofenac Sodium (VOLTAREN) 1 % gel 2021-06 00:00: 00 Yes [id number] Apply 4g to affected area QID [facility] lidocaine 5 % ointment 2021-06 00:00: 00 Yes [id number] Apply 2g to affected areas BID PRN [facility] Diclofenac Sodium (VOLTAREN) 1 % gel 2021-06 00:00: 00 Yes [id number] Apply 4g to affected area QID [facility] lidocaine 5 % ointment 2021-06 00:00: 00 Yes [id number] Apply 2g to affected areas BID PRN [facility] Diclofenac Sodium (VOLTAREN) 1 % gel 2021-06 00:00: 00 Yes [id number] Apply 4g to affected area QID [facility] lidocaine 5 % ointment 2021-06 00:00: 00 Yes [id number] Apply 2g to affected areas BID PRN [facility] Diclofenac Sodium (VOLTAREN) 1 % gel 2021-06 00:00: 00 Yes [id number] Apply 4g to affected area QID [facility] lidocaine 5 % ointment 2021-06 00:00: 00 Yes [id number] Apply 2g to affected areas BID PRN [facility] Diclofenac Sodium (VOLTAREN) 1 % gel 2021-06 00:00: 00 Yes [id number] Apply 4g to affected area QID [facility] lidocaine 5 % ointment 2021-06 00:00: 00 Yes [id number] Apply 2g to affected areas BID PRN [facility] Diclofenac Sodium (VOLTAREN) 1 % gel 2021-06 00:00: 00 Yes [id number] Apply 4g to affected area QID [facility] lidocaine 5 % ointment 2021-06 00:00: 00 Yes [id number] Apply 2g to affected areas BID PRN [facility] Diclofenac Sodium (VOLTAREN) 1 % gel 2021-06 00:00: 00 Yes [id number] Apply 4g to affected area QID [facility] lidocaine 5 % ointment 2021-06 00:00: 00 Yes [id number] Apply 2g to affected areas BID PRN [facility] Diclofenac Sodium (VOLTAREN) 1 % gel 2021-06 00:00: 00 Yes [id number] Apply 4g to affected area QID [facility] lidocaine 5 % ointment 2021-06 00:00: 00 Yes [id number] Apply 2g to affected areas BID PRN [facility] Diclofenac Sodium (VOLTAREN) 1 % gel 2021-06 00:00: 00 Yes [id number] Apply 4g to affected area QID [facility] lidocaine 5 % ointment 2021-06 00:00: 00 Yes [id number] Apply 2g to affected areas BID PRN [facility] Diclofenac Sodium (VOLTAREN) 1 % gel 2021-06 00:00: 00 Yes [id number] Apply 4g to affected area QID [facility] lidocaine 5 % ointment 2021-06 00:00: 00 Yes [id number] Apply 2g to affected areas BID PRN [facility] Diclofenac Sodium (VOLTAREN) 1 % gel 2021-06 00:00: 00 Yes [id number] Apply 4g to affected area QID [facility] lidocaine 5 % ointment 2021-06 00:00: 00 Yes [id number] Apply 2g to affected areas BID PRN [facility] Diclofenac Sodium (VOLTAREN) 1 % gel 2021-06 00:00: 00 Yes [id number] Apply 4g to affected area QID [facility] lidocaine 5 % ointment 2021-06 00:00: 00 Yes [id number] Apply 2g to affected areas BID PRN [facility] Diclofenac Sodium (VOLTAREN) 1 % gel 2021-06 00:00: 00 Yes [id number] Apply 4g to affected area QID [facility] lidocaine 5 % ointment 2021-06 00:00: 00 Yes [id number] Apply 2g to affected areas BID PRN [facility] Diclofenac Sodium (VOLTAREN) 1 % gel 2021-06 00:00: 00 Yes [id number] Apply 4g to affected area QID [facility] lidocaine 5 % ointment 2021-06 00:00: 00 Yes [id number] Apply 2g to affected areas BID PRN [facility] Diclofenac Sodium (VOLTAREN) 1 % gel 2021-06 00:00: 00 Yes [id number] Apply 4g to affected area QID [facility] lidocaine 5 % ointment 2021-06 00:00: 00 Yes [id number] Apply 2g to affected areas BID PRN [facility] Diclofenac Sodium (VOLTAREN) 1 % gel 2021-06 00:00: 00 Yes [id number] Apply 4g to affected area QID [facility] lidocaine 5 % ointment 2021-06 00:00: 00 Yes [id number] Apply 2g to affected areas BID PRN [facility] Diclofenac Sodium (VOLTAREN) 1 % gel 2021-06 00:00: 00 Yes [id number] Apply 4g to affected area QID [facility] lidocaine 5 % ointment 2021-06 00:00: 00 Yes [id number] Apply 2g to affected areas BID PRN [facility] Diclofenac Sodium (VOLTAREN) 1 % gel 2021-06 00:00: 00 Yes [id number] Apply 4g to affected area QID [facility] lidocaine 5 % ointment 2021-06 00:00: 00 Yes [id number] Apply 2g to affected areas BID PRN [facility] Diclofenac Sodium (VOLTAREN) 1 % gel 2021-06 00:00: 00 Yes [id number] Apply 4g to affected area QID [facility] lidocaine 5 % ointment 2021-06 00:00: 00 Yes [id number] Apply 2g to affected areas BID PRN [facility] Diclofenac Sodium (VOLTAREN) 1 % gel 2021-06 00:00: 00 Yes [id number] Apply 4g to affected area QID [facility] lidocaine 5 % ointment 2021-06 00:00: 00 Yes [id number] Apply 2g to affected areas BID PRN [facility] Diclofenac Sodium (VOLTAREN) 1 % gel 2021-06 00:00: 00 Yes [id number] Apply 4g to affected area QID [facility] lidocaine 5 % ointment 2021-06 00:00: 00 Yes [id number] Apply 2g to affected areas BID PRN [facility] Diclofenac Sodium (VOLTAREN) 1 % gel 2021-06 00:00: 00 Yes [id number] Apply 4g to affected area QID [facility] lidocaine 5 % ointment 2021-06 00:00: 00 Yes [id number] Apply 2g to affected areas BID PRN [facility] Diclofenac Sodium (VOLTAREN) 1 % gel 2021-06 00:00: 00 Yes [id number] Apply 4g to affected area QID [facility] levocetiriz ine 5 mg tablet 2021-06 00:00: 00 Yes [id number] 5mg Take 1 tablet by mouth at bedtime as needed for Allergies. [facility] amitriptyli ne 10 mg tablet 2021-06 00:00: 00 Yes [id number] 5mg Take 0.5 tablets by mouth at bedtime. [facility] lidocaine 5 % ointment 2021-06 00:00: 00 Yes [id number] Apply 2g to affected areas BID PRN [facility] Diclofenac Sodium (VOLTAREN) 1 % gel 2021-06 00:00: 00 Yes [id number] Apply 4g to affected area QID [facility] busPIRone 5 mg tablet 2021-06 00:00: 00 Yes [id number] 5mg Take 1 tablet by mouth 2 (two) times daily as needed (Anxiety/D epression) . [facility] levocetiriz ine 5 mg tablet 2021-06 00:00: 00 Yes [id number] 5mg Take 1 tablet by mouth at bedtime as needed for Allergies. [facility] amitriptyli ne 10 mg tablet 2021-06 00:00: 00 Yes [id number] 5mg Take 0.5 tablets by mouth at bedtime. [facility] lidocaine 5 % ointment 2021-06 00:00: 00 Yes [id number] Apply 2g to affected areas BID PRN [facility] Diclofenac Sodium (VOLTAREN) 1 % gel 2021-06 00:00: 00 Yes [id number] Apply 4g to affected area QID [facility] busPIRone 5 mg tablet 2021-06 00:00: 00 Yes [id number] 5mg Take 1 tablet by mouth 2 (two) times daily as needed (Anxiety/D epression) . [facility] levocetiriz ine 5 mg tablet 2021-06 00:00: 00 Yes [id number] 5mg Take 1 tablet by mouth at bedtime as needed for Allergies. [facility] amitriptyli ne 10 mg tablet 2021-06 00:00: 00 Yes [id number] 5mg Take 0.5 tablets by mouth at bedtime. [facility] lidocaine 5 % ointment 2021-06 00:00: 00 Yes [id number] Apply 2g to affected areas BID PRN [facility] Diclofenac Sodium (VOLTAREN) 1 % gel 2021-06 00:00: 00 Yes [id number] Apply 4g to affected area QID [facility] busPIRone 5 mg tablet 2021-06 00:00: 00 Yes [id number] 5mg Take 1 tablet by mouth 2 (two) times daily as needed (Anxiety/D epression) . [facility] levocetiriz ine 5 mg tablet 2021-06 00:00: 00 Yes [id number] 5mg Take 1 tablet by mouth at bedtime as needed for Allergies. [facility] amitriptyli ne 10 mg tablet 2021-06 00:00: 00 Yes [id number] 5mg Take 0.5 tablets by mouth at bedtime. [facility] lidocaine 5 % ointment 2021-06 00:00: 00 Yes [id number] Apply 2g to affected areas BID PRN [facility] Diclofenac Sodium (VOLTAREN) 1 % gel 2021-06 00:00: 00 Yes [id number] Apply 4g to affected area QID [facility] busPIRone 5 mg tablet 2021-06 00:00: 00 Yes [id number] 5mg Take 1 tablet by mouth 2 (two) times daily as needed (Anxiety/D epression) . [facility] levocetiriz ine 5 mg tablet 2021-06 00:00: 00 Yes [id number] 5mg Take 1 tablet by mouth at bedtime as needed for Allergies. [facility] amitriptyli ne 10 mg tablet 2021-06 00:00: 00 Yes [id number] 5mg Take 0.5 tablets by mouth at bedtime. [facility] lidocaine 5 % ointment 2021-06 00:00: 00 Yes [id number] Apply 2g to affected areas BID PRN [facility] Diclofenac Sodium (VOLTAREN) 1 % gel 2021-06 00:00: 00 Yes [id number] Apply 4g to affected area QID [facility] busPIRone 5 mg tablet 2021-06 00:00: 00 Yes [id number] 5mg Take 1 tablet by mouth 2 (two) times daily as needed (Anxiety/D epression) . [facility] levocetiriz ine 5 mg tablet 2021-06 00:00: 00 Yes [id number] 5mg Take 1 tablet by mouth at bedtime as needed for Allergies. [facility] amitriptyli ne 10 mg tablet 2021-06 00:00: 00 Yes [id number] 5mg Take 0.5 tablets by mouth at bedtime. [facility] lidocaine 5 % ointment 2021-06 00:00: 00 Yes [id number] Apply 2g to affected areas BID PRN [facility] Diclofenac Sodium (VOLTAREN) 1 % gel 2021-06 00:00: 00 Yes [id number] Apply 4g to affected area QID [facility] busPIRone 5 mg tablet 2021-06 00:00: 00 Yes [id number] 5mg Take 1 tablet by mouth 2 (two) times daily as needed (Anxiety/D epression) . [facility] levocetiriz ine 5 mg tablet 2021-06 00:00: 00 Yes [id number] 5mg Take 1 tablet by mouth at bedtime as needed for Allergies. [facility] amitriptyli ne 10 mg tablet 2021-06 00:00: 00 Yes [id number] 5mg Take 0.5 tablets by mouth at bedtime. [facility] lidocaine 5 % ointment 2021-06 00:00: 00 Yes [id number] Apply 2g to affected areas BID PRN [facility] Diclofenac Sodium (VOLTAREN) 1 % gel 2021-06 00:00: 00 Yes [id number] Apply 4g to affected area QID [facility] busPIRone 5 mg tablet 2021-06 00:00: 00 Yes [id number] 5mg Take 1 tablet by mouth 2 (two) times daily as needed (Anxiety/D epression) . [facility] amitriptyli ne 10 mg tablet 2021-06 00:00: 00 Yes [id number] 5mg Take 0.5 tablets by mouth at bedtime. [facility] lidocaine 5 % ointment 2021-06 00:00: 00 Yes [id number] Apply 2g to affected areas BID PRN [facility] Diclofenac Sodium (VOLTAREN) 1 % gel 2021-06 00:00: 00 Yes [id number] Apply 4g to affected area QID [facility] busPIRone 5 mg tablet 2021-06 00:00: 00 Yes [id number] 5mg Take 1 tablet by mouth 2 (two) times daily as needed (Anxiety/D epression) . [facility] amitriptyli ne 10 mg tablet 2021-06 00:00: 00 Yes [id number] 5mg Take 0.5 tablets by mouth at bedtime. [facility] lidocaine 5 % ointment 2021-06 00:00: 00 Yes [id number] Apply 2g to affected areas BID PRN [facility] Diclofenac Sodium (VOLTAREN) 1 % gel 2021-06 00:00: 00 Yes [id number] Apply 4g to affected area QID [facility] busPIRone 5 mg tablet 2021-06 00:00: 00 Yes [id number] 5mg Take 1 tablet by mouth 2 (two) times daily as needed (Anxiety/D epression) . [facility] lidocaine 5 % ointment 2021-06 00:00: 00 Yes [id number] Apply 2g to affected areas BID PRN [facility] Diclofenac Sodium (VOLTAREN) 1 % gel 2021-06 00:00: 00 Yes [id number] Apply 4g to affected area QID [facility] busPIRone 5 mg tablet 2021-06 00:00: 00 Yes [id number] 5mg Take 1 tablet by mouth 2 (two) times daily as needed (Anxiety/D epression) . [facility] lidocaine 5 % ointment 2021-06 00:00: 00 Yes [id number] Apply 2g to affected areas BID PRN [facility] Diclofenac Sodium (VOLTAREN) 1 % gel 2021-06 00:00: 00 Yes [id number] Apply 4g to affected area QID [facility] busPIRone 5 mg tablet 2021-06 00:00: 00 Yes [id number] 5mg Take 1 tablet by mouth 2 (two) times daily as needed (Anxiety/D epression) . [facility] lidocaine 5 % ointment 2021-06 00:00: 00 Yes [id number] Apply 2g to affected areas BID PRN [facility] Diclofenac Sodium (VOLTAREN) 1 % gel 2021-06 00:00: 00 Yes [id number] Apply 4g to affected area QID [facility] busPIRone 5 mg tablet 2021-06 00:00: 00 Yes [id number] 5mg Take 1 tablet by mouth 2 (two) times daily as needed (Anxiety/D epression) . [facility]:00: 00 Yes [id number] Apply 2g to affected areas BID PRN [facility] Diclofenac Sodium (VOLTAREN) 1 % gel 2021-06 00:00: 00 Yes [id number] Apply 4g to affected area QID [facility] busPIRone 5 mg tablet 2021-06 00:00: 00 Yes [id number] 5mg Take 1 tablet by mouth 2 (two) times daily as needed (Anxiety/D epression) . [facility]int[facility] 2021-06 00:00: 00 Yes [id number] Apply 2g to affected areas BID PRN [facility] Diclofenac Sodium (VOLTAREN) 1 % gel 2021-06 00:00: 00 Yes [id number] Apply 4g to affected area QID [facility] busPIRone 5 mg tablet 2021-06 00:00: 00 Yes [id number] 5mg Take 1 tablet by mouth 2 (two) times daily as needed (Anxiety/D epression) . [facility] lidocaine 5 % ointment 2021-06 00:00: 00 Yes [id number] Apply 2g to affected areas BID PRN [facility] Diclofenac Sodium (VOLTAREN) 1 % gel 2021-06 00:00: 00 Yes [id number] Apply 4g to affected area QID [facility] lidocaine 5 % ointment 2021-06 00:00: 00 Yes [id number] Apply 2g to affected areas BID PRN [facility] Diclofenac Sodium (VOLTAREN) 1 % gel 2021-06 00:00: 00 Yes [id number] Apply 4g to affected area QID [facility] lidocaine 5 % ointment 2021-06 00:00: 00 Yes [id number] Apply 2g to affected areas BID PRN [facility] Diclofenac Sodium (VOLTAREN) 1 % gel 2021-06 00:00: 00 Yes [id number] Apply 4g to affected area QID [facility] lidocaine 5 % ointment 2021-06 00:00: 00 Yes [id number] Apply 2g to affected areas BID PRN [facility] Diclofenac Sodium (VOLTAREN) 1 % gel 2021-06 00:00: 00 Yes [id number] Apply 4g to affected area QID [facility] lidocaine 5 % ointment 2021-06 00:00: 00 Yes [id number] Apply 2g to affected areas BID PRN [facility] Diclofenac Sodium (VOLTAREN) 1 % gel 2021-06 00:00: 00 Yes [id number] Apply 4g to affected area QID [facility] lidocaine 5 % ointment 2021-06 00:00: 00 Yes [id number] Apply 2g to affected areas BID PRN [facility] Diclofenac Sodium (VOLTAREN) 1 % gel 2021-06 00:00: 00 Yes [id number] Apply 4g to affected area QID [facility] lidocaine 5 % ointment 2021-06 00:00: 00 Yes [id number] Apply 2g to affected areas BID PRN [facility] Diclofenac Sodium (VOLTAREN) 1 % gel 2021-06 00:00: 00 Yes [id number] Apply 4g to affected area QID [facility] busPIRone 5 mg tablet 2021-06 00:00: 00 11-07 00:00 :00 No [id number] 5mg Take 1 tablet by mouth 2 (two) times daily as needed (Anxiety/D epression) . [facility] busPIRone 5 mg tablet 2021-06 00:00: 00 11-07 00:00 :00 No [id number] 5mg Take 1 tablet by mouth 2 (two) times daily as needed (Anxiety/D epression) . [facility] amitriptyli ne 10 mg tablet 2021-06 00:00: 00 08-06 00:00 :00 No [id number] 5mg Take 0.5 tablets by mouth at bedtime. [facility] levocetiriz ine 5 mg tablet 2021-06 00:00: 00 06-18 00:00 :00 No [id number] 5mg Take 1 tablet by mouth at bedtime as needed for Allergies. [facility] HYDROcodone -acetaminop hen 10-325 mg tablet 2021-06 00:00: 00 Yes [facility] HYDROcodone -acetaminop hen 10-325 mg tablet 2021-06 00:00: 00 Yes [facility] HYDROcodone -acetaminop hen 10-325 mg tablet 2021-06 00:00: 00 Yes [facility] HYDROcodone -acetaminop hen 10-325 mg tablet 2021-06 00:00: 00 Yes [facility] HYDROcodone -acetaminop hen 10-325 mg tablet 2021-06 00:00: 00 Yes [facility] HYDROcodone -acetaminop hen 10-325 mg tablet 2021-06 00:00: 00 Yes [facility] HYDROcodone -acetaminop hen 10-325 mg tablet 2021-06 00:00: 00 Yes [facility] HYDROcodone -acetaminop hen 10-325 mg tablet 2021-06 00:00: 00 Yes [facility] HYDROcodone -acetaminop hen 10-325 mg tablet 2021-06 00:00: 00 Yes [facility] HYDROcodone -acetaminop hen 10-325 mg tablet 2021-06 00:00: 00 Yes [facility] HYDROcodone -acetaminop hen 10-325 mg tablet 2021-06 00:00: 00 Yes [facility] HYDROcodone -acetaminop hen 10-325 mg tablet 2021-06 00:00: 00 Yes [facility] HYDROcodone -acetaminop hen 10-325 mg tablet 2021-06 00:00: 00 Yes [facility] HYDROcodone -acetaminop hen 10-325 mg tablet 2021-06 00:00: 00 Yes [facility] HYDROcodone -acetaminop hen 10-325 mg tablet 2021-06 00:00: 00 Yes [facility] HYDROcodone -acetaminop hen 10-325 mg tablet 2021-06 00:00: 00 Yes [facility] HYDROcodone -acetaminop hen 10-325 mg tablet 2021-06 00:00: 00 Yes [facility] HYDROcodone -acetaminop hen 10-325 mg tablet 2021-06 00:00: 00 Yes [facility] HYDROcodone -acetaminop hen 10-325 mg tablet 2021-06 00:00: 00 Yes [facility] HYDROcodone -acetaminop hen 10-325 mg tablet 2021-06 00:00: 00 Yes [facility] HYDROcodone -acetaminop hen 10-325 mg tablet 2021-06 00:00: 00 Yes [facility] HYDROcodone -acetaminop hen 10-325 mg tablet 2021-06 00:00: 00 Yes [facility] HYDROcodone -acetaminop hen 10-325 mg tablet 2021-06 00:00: 00 Yes [facility] HYDROcodone -acetaminop hen 10-325 mg tablet 2021-06 00:00: 00 Yes [facility] HYDROcodone -acetaminop hen 10-325 mg tablet 2021-06 00:00: 00 Yes [facility] HYDROcodone -acetaminop hen 10-325 mg tablet 2021-06 00:00: 00 Yes [facility] [facility] HYDROcodone -acetaminop hen 10-325 mg tablet 2021-06 00:00: 00 Yes [facility] HYDROcodone -acetaminop hen 10-325 mg tablet 2021-06 00:00: 00 Yes [facility] HYDROcodone -acetaminop hen 10-325 mg tablet 2021-06 00:00: 00 Yes [facility] HYDROcodone -acetaminop hen 10-325 mg tablet 2021-06 00:00: 00 Yes [facility] HYDROcodone -acetaminop hen 10-325 mg tablet 2021-06 00:00: 00 Yes [facility] HYDROcodone -acetaminop hen 10-325 mg tablet 2021-06 00:00: 00 Yes [facility] HYDROcodone -acetaminop hen 10-325 mg tablet 2021-06 00:00: 00 Yes [facility] HYDROcodone -acetaminop hen 10-325 mg tablet 2021-06 00:00: 00 Yes [facility] HYDROcodone -acetaminop hen 10-325 mg tablet 2021-06 00:00: 00 Yes [facility] HYDROcodone -acetaminop hen 10-325 mg tablet 2021-06 00:00: 00 Yes [facility] HYDROcodone -acetaminop hen 10-325 mg tablet 2021-06 00:00: 00 Yes [facility] HYDROcodone -acetaminop hen 10-325 mg tablet 2021-06 00:00: 00 Yes [facility] HYDROcodone -acetaminop hen 10-325 mg tablet 2021-06 00:00: 00 Yes [facility] HYDROcodone -acetaminop hen 10-325 mg tablet 2021-06 00:00: 00 Yes [facility] HYDROcodone -acetaminop hen 10-325 mg tablet 2021-06 00:00: 00 Yes [facility] HYDROcodone -acetaminop hen 10-325 mg tablet 2021-06 00:00: 00 Yes [facility] HYDROcodone -acetaminop hen 10-325 mg tablet 2021-06 00:00: 00 Yes [facility] HYDROcodone -acetaminop hen 10-325 mg tablet 2021-06 00:00: 00 Yes [facility] HYDROcodone -acetaminop hen 10-325 mg tablet 2021-06 00:00: 00 Yes [facility] HYDROcodone -acetaminop hen 10-325 mg tablet 2021-06 00:00: 00 Yes [facility] HYDROcodone -acetaminop hen 10-325 mg tablet 2021-06 00:00: 00 Yes [facility] HYDROcodone -acetaminop hen 10-325 mg tablet 2021-06 00:00: 00 Yes [facility] HYDROcodone -acetaminop hen 10-325 mg tablet 2021-06 00:00: 00 Yes [facility] HYDROcodone -acetaminop hen 10-325 mg tablet 2021-06 00:00: 00 Yes [facility] HYDROcodone -acetaminop hen 10-325 mg tablet 2021-06 00:00: 00 Yes [facility] HYDROcodone -acetaminop hen 10-325 mg tablet 2021-06 00:00: 00 Yes [facility] HYDROcodone -acetaminop hen 10-325 mg tablet 2021-06 00:00: 00 Yes [facility] HYDROcodone -acetaminop hen 10-325 mg tablet 2021-06 00:00: 00 Yes [facility] HYDROcodone -acetaminop hen 10-325 mg tablet 2021-06 00:00: 00 Yes [facility] HYDROcodone -acetaminop hen 10-325 mg tablet 2021-06 00:00: 00 Yes [facility] HYDROcodone -acetaminop hen 10-325 mg tablet 2021-06 00:00: 00 Yes [facility] HYDROcodone -acetaminop hen 10-325 mg tablet 2021-06 00:00: 00 Yes [facility] HYDROcodone -acetaminop hen 10-325 mg tablet 2021-06 00:00: 00 Yes [facility] HYDROcodone -acetaminop hen 10-325 mg tablet 2021-06 00:00: 00 Yes [facility] HYDROcodone -acetaminop hen 10-325 mg tablet 2021-06 00:00: 00 Yes [facility] HYDROcodone -acetaminop hen 10-325 mg tablet 2021-06 00:00: 00 Yes [facility] HYDROcodone -acetaminop hen 10-325 mg tablet 2021-06 00:00: 00 Yes [facility] HYDROcodone -acetaminop hen 10-325 mg tablet 2021-06 00:00: 00 Yes [facility] HYDROcodone -acetaminop hen 10-325 mg tablet 2021-06 00:00: 00 Yes [facility] HYDROcodone -acetaminop hen 10-325 mg tablet 2021-06 00:00: 00 Yes [facility] HYDROcodone -acetaminop hen 10-325 mg tablet 2021-06 00:00: 00 Yes [facility] HYDROcodone -acetaminop hen 10-325 mg tablet 2021-06 00:00: 00 Yes [facility] HYDROcodone -acetaminop hen 10-325 mg tablet 2021-06 00:00: 00 Yes [facility] HYDROcodone -acetaminop hen 10-325 mg tablet 2021-06 00:00: 00 Yes [facility] HYDROcodone -acetaminop hen 10-325 mg tablet 2021-06 00:00: 00 Yes [facility] HYDROcodone -acetaminop hen 10-325 mg tablet 2021-06 00:00: 00 Yes [facility] HYDROcodone -acetaminop hen 10-325 mg tablet 2021-06 00:00: 00 Yes [facility] HYDROcodone -acetaminop hen 10-325 mg tablet 2021-06 00:00: 00 Yes [facility] ondansetron (Zofran) 4 MG tablet 2021-06 11:24: 25 Yes 4mg Take 4 mg by mouth. [facility] ondansetron (Zofran) 4 MG tablet 2021-06 11:24: 25 Yes 4mg Take 4 mg by mouth. [facility] metoprolol succinate XL (Toprol-XL) 100 MG 24 hr tablet 2021-06 00:00: 00 Yes 1{tbl} Take 1 tablet by mouth 1 (one) time each day in the morning. [facility] metoprolol succinate XL (Toprol-XL) 100 MG 24 hr tablet 2021-06 00:00: 00 Yes 1{tbl} Take 1 tablet by mouth 1 (one) time each day in the morning. [facility] metoprolol succinate XL (TOPROL XL) 100 mg 24 hr tablet 2021-06 00:00: 00 Yes [id number] 100mg Take 1 tablet by mouth in the morning. [facility] metoprolol succinate XL (TOPROL XL) 100 mg 24 hr tablet 2021-06 00:00: 00 Yes [id number] 100mg Take 1 tablet by mouth in the morning. [facility] metoprolol succinate XL (TOPROL XL) 100 mg 24 hr tablet 2021-06 00:00: 00 Yes [id number] 100mg Take 1 tablet by mouth in the morning. [facility] metoprolol succinate XL (TOPROL XL) 100 mg 24 hr tablet 2021-06 00:00: 00 Yes [id number] 100mg Take 1 tablet by mouth in the morning. [facility] metoprolol succinate XL (TOPROL XL) 100 mg 24 hr tablet 2021-06 00:00: 00 Yes [id number] 100mg Take 1 tablet by mouth in the morning. [facility] metoprolol succinate XL (TOPROL XL) 100 mg 24 hr tablet 2021-06 00:00: 00 Yes [id number] 100mg Take 1 tablet by mouth in the morning. [facility] metoprolol succinate XL (TOPROL XL) 100 mg 24 hr tablet 2021-06 00:00: 00 Yes [id number] 100mg Take 1 tablet by mouth in the morning. [facility] metoprolol succinate XL (TOPROL XL) 100 mg 24 hr tablet 2021-06 00:00: 00 Yes [id number] 100mg Take 1 tablet by mouth in the morning. [facility] metoprolol succinate XL (TOPROL XL) 100 mg 24 hr tablet 2021-06 00:00: 00 Yes [id number] 100mg Take 1 tablet by mouth in the morning. [facility] metoprolol succinate XL (TOPROL XL) 100 mg 24 hr tablet 2021-06 00:00: 00 Yes [id number] 100mg Take 1 tablet by mouth in the morning. [facility] metoprolol succinate XL (TOPROL XL) 100 mg 24 hr tablet 2021-06 00:00: 00 Yes [id number] 100mg Take 1 tablet by mouth in the morning. [facility] metoprolol succinate XL (TOPROL XL) 100 mg 24 hr tablet 2021-06 00:00: 00 Yes [id number] 100mg Take 1 tablet by mouth in the morning. [facility] metoprolol succinate XL (TOPROL XL) 100 mg 24 hr tablet 2021-06 00:00: 00 Yes [id number] 100mg Take 1 tablet by mouth in the morning. [facility] metoprolol succinate XL (TOPROL XL) 100 mg 24 hr tablet 2021-06 00:00: 00 Yes [id number] 100mg Take 1 tablet by mouth in the morning. [facility] metoprolol succinate XL (TOPROL XL) 100 mg 24 hr tablet 2021-06 00:00: 00 Yes [id number] 100mg Take 1 tablet by mouth in the morning. [facility] metoprolol succinate XL (TOPROL XL) 100 mg 24 hr tablet 2021-06 00:00: 00 Yes [id number] 100mg Take 1 tablet by mouth in the morning. [facility] metoprolol succinate XL (TOPROL XL) 100 mg 24 hr tablet 2021-06 00:00: 00 Yes [id number] 100mg Take 1 tablet by mouth in the morning. [facility] metoprolol succinate XL (TOPROL XL) 100 mg 24 hr tablet 2021-06 00:00: 00 10-26 00:00 :00 No [id number] 100mg Take 1 tablet by mouth in the morning. [facility] furosemide 20 mg tablet 2021-0618 12:08: 16 03-27 00:00 :00 No 20mg Take 20 mg by mouth in the morning. [facility] furosemide 20 mg tablet 2021-0618 12:08: 16 03-27 00:00 :00 No 20mg Take 20 mg by mouth in the morning. [facility] TOPROL XL 50 MG ORAL TB24 2021-0618 12:08: 09 03-27 00:00 :00 No 1 1/2 tab daily [facility] TOPROL XL 50 MG ORAL TB24 2021-0618 12:08: 09 03-27 00:00 :00 No 1 1/2 tab daily [facility] NIACIN 500 MG ORAL TAB 2021-06 018 11:41: 41 03-27 00:00 :00 No 2 tabs daily [facility] NIACIN 500 MG ORAL TAB 2021-06 018 11:41: 41 03-27 00:00 :00 No 2 tabs daily [facility] ondansetron 4 mg tablet 2021-0618 11:03: 44 Yes 4mg Take 4 mg by mouth every 8 (eight) hours as needed. [facility] ondansetron 4 mg tablet 2021-06 11:03: 44 Yes 4mg Take 4 mg by mouth every 8 (eight) hours as needed. [facility] ondansetron 4 mg tablet 2021-06 11:03: 44 Yes 4mg Take 4 mg by mouth every 8 (eight) hours as needed. [facility] ondansetron 4 mg tablet 2021-06 11:03: 44 Yes 4mg Take 4 mg by mouth every 8 (eight) hours as needed. [facility] ondansetron 4 mg tablet 2021-06 11:03: 44 Yes 4mg Take 4 mg by mouth every 8 (eight) hours as needed. [facility] ondansetron 4 mg tablet 2021-06 11:03: 44 Yes 4mg Take 4 mg by mouth every 8 (eight) hours as needed. [facility] ondansetron 4 mg tablet 2021-06 11:03: 44 Yes 4mg Take 4 mg by mouth every 8 (eight) hours as needed. [facility] albuterol (2.5 MG/3ML) 0.083% nebulizer solution 2021-06 00:00: 00 Yes 2.5mg Inhale 2.5 mg. [facility] amitriptyli ne (Elavil) 10 MG tablet 2021-06 00:00: 00 Yes 5mg Take 5 mg by mouth. [facility] apixaban (Eliquis) 2.5 MG tablet 2021-06 00:00: 00 Yes 2.5mg Take 2.5 mg by mouth. [facility] fluticasone (Flovent) 110 MCG/ACT inhaler 2021-06 00:00: 00 Yes 2{puff} Q12H Inhale 2 puffs every 12 (twelve) hours. [facility] furosemide (Lasix) 20 MG tablet 2021-06 00:00: 00 Yes 1{tbl} Take 1 tablet by mouth 1 (one) time each day in the morning. [facility] hydroCHLORO thiazide (HYDRODiuri l) 50 MG tablet 2021-06 00:00: 00 Yes take one pill PO Daily [facility] Lidocaine 1.8 % patch 2021-06 00:00: 00 Yes 1{patch } Apply 1 patch topically. [facility] losartan (Cozaar) 100 MG tablet 2021-06 00:00: 00 Yes 1{tbl} Take 1 tablet by mouth 1 (one) time each day in the morning. [facility] albuterol (2.5 MG/3ML) 0.083% nebulizer solution 2021-06 00:00: 00 Yes 2.5mg Inhale 2.5 mg. [facility] amitriptyli ne (Elavil) 10 MG tablet 2021-06 00:00: 00 Yes 5mg Take 5 mg by mouth. [facility] apixaban (Eliquis) 2.5 MG tablet 2021-06 00:00: 00 Yes 2.5mg Take 2.5 mg by mouth. [facility] fluticasone (Flovent) 110 MCG/ACT inhaler 2021-06 00:00: 00 Yes 2{puff} Q12H Inhale 2 puffs every 12 (twelve) hours. [facility] furosemide (Lasix) 20 MG tablet 2021-06 00:00: 00 Yes 1{tbl} Take 1 tablet by mouth 1 (one) time each day in the morning. [facility] hydroCHLORO thiazide (HYDRODiuri l) 50 MG tablet 2021-06 00:00: 00 Yes take one pill PO Daily [facility] Lidocaine 1.8 % patch 2021-06 00:00: 00 Yes 1{patch } Apply 1 patch topically. [facility] losartan (Cozaar) 100 MG tablet 2021-06 00:00: 00 Yes 1{tbl} Take 1 tablet by mouth 1 (one) time each day in the morning. [facility] ipratropium 0.02 % nebulizer solution 2021-06 00:00: 00 Yes [id number] .5mg Inhale 2.5 mL every 6 (six) hours as needed for Wheezing or Shortness of Breath. [facility] fluticasone propionate (FLOVENT HFA) 110 mcg/actuati on inhaler 2021-06 00:00: 00 Yes [id number] 2{puff} Inhale 2 Puffs every 12 (twelve) hours. [facility] albuterol 2.5 mg/0.5 mL nebulizer solution 2021-06 00:00: 00 Yes [id number] 2.5mg Inhale 0.5 mL every 6 (six) hours as needed for Wheezing. [facility] amitriptyli ne 10 mg tablet 2021-06 00:00: 00 Yes [id number] 5mg Take 0.5 tablets by mouth at bedtime. [facility] traMADoL-ac etaminophen 37.5-325 mg per tablet 2021-06 00:00: 00 Yes [id number] 1{tbl} Take 1 tablet by mouth every 6 (six) hours as needed for Pain. Indication s: chronic pain [facility] famotidine 20 mg tablet 2021-06 00:00: 00 Yes [id number] 20mg Take 1 tablet by mouth in the morning and 1 tablet in the evening. [facility] albuterol 2.5 mg /3 mL (0.083 %) nebulizer solution 2021-06 00:00: 00 Yes [id number] 2.5mg Inhale 3 mL every 6 (six) hours as needed for Wheezing or Shortness of Breath. [facility] ipratropium 0.02 % nebulizer solution 2021-06 00:00: 00 Yes [id number] .5mg Inhale 2.5 mL every 6 (six) hours as needed for Wheezing or Shortness of Breath. [facility] fluticasone propionate (FLOVENT HFA) 110 mcg/actuati on inhaler 2021-06 00:00: 00 Yes [id number] 2{puff} Inhale 2 Puffs every 12 (twelve) hours. [facility] albuterol 2.5 mg/0.5 mL nebulizer solution 2021-06 00:00: 00 Yes [id number] 2.5mg Inhale 0.5 mL every 6 (six) hours as needed for Wheezing. [facility] lidocaine 1.8 % PtMd 2021-06 00:00: 00 Yes [id number] 1{patch } Apply 1 Patch to area(s) daily. [facility] lidocaine 1.8 % PtMd 2021-06 00:00: 00 Yes [id number] 1{patch } Apply 1 Patch to area(s) daily. [facility] famotidine 20 mg tablet 2021-06 00:00: 00 Yes [id number] 20mg Take 1 tablet by mouth in the morning and 1 tablet in the evening. [facility] albuterol 2.5 mg /3 mL (0.083 %) nebulizer solution 2021-06 00:00: 00 Yes [id number] 2.5mg Inhale 3 mL every 6 (six) hours as needed for Wheezing or Shortness of Breath. [facility] ipratropium 0.02 % nebulizer solution 2021-06 00:00: 00 Yes [id number] .5mg Inhale 2.5 mL every 6 (six) hours as needed for Wheezing or Shortness of Breath. [facility] fluticasone propionate (FLOVENT HFA) 110 mcg/actuati on inhaler 2021-06 00:00: 00 Yes [id number] 2{puff} Inhale 2 Puffs every 12 (twelve) hours. [facility] albuterol 2.5 mg/0.5 mL nebulizer solution 2021-06 00:00: 00 Yes [id number] 2.5mg Inhale 0.5 mL every 6 (six) hours as needed for Wheezing. [facility] lidocaine 1.8 % PtMd 2021-06 00:00: 00 Yes [id number] 1{patch } Apply 1 Patch to area(s) daily. [facility] famotidine 20 mg tablet 2021-06 00:00: 00 Yes [id number] 20mg Take 1 tablet by mouth in the morning and 1 tablet in the evening. [facility] albuterol 2.5 mg /3 mL (0.083 %) nebulizer solution 2021-06 00:00: 00 Yes [id number] 2.5mg Inhale 3 mL every 6 (six) hours as needed for Wheezing or Shortness of Breath. [facility] ipratropium 0.02 % nebulizer solution 2021-06 00:00: 00 Yes [id number] .5mg Inhale 2.5 mL every 6 (six) hours as needed for Wheezing or Shortness of Breath. [facility] propionate (FLOVENT HFA) 110 mcg/actuati on inhaler 2021-06 00:00: 00 Yes [id number] 2{puff} Inhale 2 Puffs every 12 (twelve) hours. [facility] albuterol 2.5 mg/0.5 mL nebulizer solution 2021-06 00:00: 00 Yes [id number] 2.5mg Inhale 0.5 mL every 6 (six) hours as needed for Wheezing. [facility] lidocaine 1.8 % PtMd 2021-06 00:00: 00 Yes [id number] 1{patch } Apply 1 Patch to area(s) daily. [facility] famotidine 20 mg tablet 2021-06 00:00: 00 Yes [id number] 20mg Take 1 tablet by mouth in the morning and 1 tablet in the evening. [facility] albuterol 2.5 mg /3 mL (0.083 %) nebulizer solution 2021-06 00:00: 00 Yes [id number] 2.5mg Inhale 3 mL every 6 (six) hours as needed for Wheezing or Shortness of Breath. [facility] ipratropium 0.02 % nebulizer solution 2021-06 00:00: 00 Yes [id number] .5mg Inhale 2.5 mL every 6 (six) hours as needed for Wheezing or Shortness of Breath. [facility] fluticasone propionate (FLOVENT HFA) 110 mcg/actuati on inhaler 2021-06 00:00: 00 Yes [id number] 2{puff} Inhale 2 Puffs every 12 (twelve) hours. [facility] albuterol 2.5 mg/0.5 mL nebulizer solution 2021-06 00:00: 00 Yes [id number] 2.5mg Inhale 0.5 mL every 6 (six) hours as needed for Wheezing. [facility] lidocaine 1.8 % PtMd 2021-06 00:00: 00 Yes [id number] 1{patch } Apply 1 Patch to area(s) daily. [facility] famotidine 20 mg tablet 2021-06 00:00: 00 Yes [id number] 20mg Take 1 tablet by mouth in the morning and 1 tablet in the evening. [facility] albuterol 2.5 mg /3 mL (0.083 %) nebulizer solution 2021-06 00:00: 00 Yes [id number] 2.5mg Inhale 3 mL every 6 (six) hours as needed for Wheezing or Shortness of Breath. [facility] ipratropium 0.02 % nebulizer solution 2021-06 00:00: 00 Yes [id number] .5mg Inhale 2.5 mL every 6 (six) hours as needed for Wheezing or Shortness of Breath. [facility] fluticasone propionate (FLOVENT HFA) 110 mcg/actuati on inhaler 2021-06 00:00: 00 Yes [id number] 2{puff} Inhale 2 Puffs every 12 (twelve) hours. [facility] albuterol 2.5 mg/0.5 mL nebulizer solution 2021-06 00:00: 00 Yes [id number] 2.5mg Inhale 0.5 mL every 6 (six) hours as needed for Wheezing. [facility] lidocaine 1.8 % PtMd 2021-06 00:00: 00 Yes [id number] 1{patch } Apply 1 Patch to area(s) daily. [facility] famotidine 20 mg tablet 2021-06 00:00: 00 Yes [id number] 20mg Take 1 tablet by mouth in the morning and 1 tablet in the evening. [facility] albuterol 2.5 mg /3 mL (0.083 %) nebulizer solution 2021-06 00:00: 00 Yes [id number] 2.5mg Inhale 3 mL every 6 (six) hours as needed for Wheezing or Shortness of Breath. [facility] ipratropium 0.02 % nebulizer solution 2021-06 00:00: 00 Yes [id number] .5mg Inhale 2.5 mL every 6 (six) hours as needed for Wheezing or Shortness of Breath. [facility] fluticasone propionate (FLOVENT HFA) 110 mcg/actuati on inhaler 2021-06 00:00: 00 Yes [id number] 2{puff} Inhale 2 Puffs every 12 (twelve) hours. [facility] albuterol 2.5 mg/0.5 mL nebulizer solution 2021-06 00:00: 00 Yes [id number] 2.5mg Inhale 0.5 mL every 6 (six) hours as needed for Wheezing. [facility] lidocaine 1.8 % PtMd 2021-06 00:00: 00 Yes [id number] 1{patch } Apply 1 Patch to area(s) daily. [facility] famotidine 20 mg tablet 2021-06 00:00: 00 Yes [id number] 20mg Take 1 tablet by mouth in the morning and 1 tablet in the evening. [facility] albuterol 2.5 mg /3 mL (0.083 %) nebulizer solution 2021-06 00:00: 00 Yes [id number] 2.5mg Inhale 3 mL every 6 (six) hours as needed for Wheezing or Shortness of Breath. [facility] ipratropium 0.02 % nebulizer solution 2021-06 00:00: 00 Yes [id number] .5mg Inhale 2.5 mL every 6 (six) hours as needed for Wheezing or Shortness of Breath. [facility] fluticasone propionate (FLOVENT HFA) 110 mcg/actuati on inhaler 2021-06 00:00: 00 Yes [id number] 2{puff} Inhale 2 Puffs every 12 (twelve) hours. [facility] albuterol 2.5 mg/0.5 mL nebulizer solution 2021-06 00:00: 00 Yes [id number] 2.5mg Inhale 0.5 mL every 6 (six) hours as needed for Wheezing. [facility] lidocaine 1.8 % PtMd 2021-06 00:00: 00 Yes [id number] 1{patch } Apply 1 Patch to area(s) daily. [facility] famotidine 20 mg tablet 2021-06 00:00: 00 Yes [id number] 20mg Take 1 tablet by mouth in the morning and 1 tablet in the evening. [facility] albuterol 2.5 mg /3 mL (0.083 %) nebulizer solution 2021-06 00:00: 00 Yes [id number] 2.5mg Inhale 3 mL every 6 (six) hours as needed for Wheezing or Shortness of Breath. [facility] ipratropium 0.02 % nebulizer solution 2021-06 00:00: 00 Yes [id number] .5mg Inhale 2.5 mL every 6 (six) hours as needed for Wheezing or Shortness of Breath. [facility] fluticasone propionate (FLOVENT HFA) 110 mcg/actuati on inhaler 2021-06 00:00: 00 Yes [id number] 2{puff} Inhale 2 Puffs every 12 (twelve) hours. [facility] albuterol 2.5 mg/0.5 mL nebulizer solution 2021-06 00:00: 00 Yes [id number] 2.5mg Inhale 0.5 mL every 6 (six) hours as needed for Wheezing. [facility] lidocaine 1.8 % PtMd 2021-06 00:00: 00 Yes [id number] 1{patch } Apply 1 Patch to area(s) daily. [facility] famotidine 20 mg tablet 2021-06 00:00: 00 Yes [id number] 20mg Take 1 tablet by mouth in the morning and 1 tablet in the evening. [facility] albuterol 2.5 mg /3 mL (0.083 %) nebulizer solution 2021-06 00:00: 00 Yes [id number] 2.5mg Inhale 3 mL every 6 (six) hours as needed for Wheezing or Shortness of Breath. [facility] ipratropium 0.02 % nebulizer solution 2021-06 00:00: 00 Yes [id number] .5mg Inhale 2.5 mL every 6 (six) hours as needed for Wheezing or Shortness of Breath. [facility] fluticasone propionate (FLOVENT HFA) 110 mcg/actuati on inhaler 2021-06 00:00: 00 Yes [id number] 2{puff} Inhale 2 Puffs every 12 (twelve) hours. [facility] albuterol 2.5 mg/0.5 mL nebulizer solution 2021-06 00:00: 00 Yes [id number] 2.5mg Inhale 0.5 mL every 6 (six) hours as needed for Wheezing. [facility] lidocaine 1.8 % PtMd 2021-06 00:00: 00 Yes [id number] 1{patch } Apply 1 Patch to area(s) daily. [facility] famotidine 20 mg tablet 2021-06 00:00: 00 Yes [id number] 20mg Take 1 tablet by mouth in the morning and 1 tablet in the evening. [facility] albuterol 2.5 mg /3 mL (0.083 %) nebulizer solution 2021-06 00:00: 00 Yes [id number] 2.5mg Inhale 3 mL every 6 (six) hours as needed for Wheezing or Shortness of Breath. [facility] ipratropium 0.02 % nebulizer solution 2021-06 00:00: 00 Yes [id number] .5mg Inhale 2.5 mL every 6 (six) hours as needed for Wheezing or Shortness of Breath. [facility] fluticasone propionate (FLOVENT HFA) 110 mcg/actuati on inhaler 2021-06 00:00: 00 Yes [id number] 2{puff} Inhale 2 Puffs every 12 (twelve) hours. [facility] albuterol 2.5 mg/0.5 mL nebulizer solution 2021-06 00:00: 00 Yes [id number] 2.5mg Inhale 0.5 mL every 6 (six) hours as needed for Wheezing. [facility] lidocaine 1.8 % PtMd 2021-06 00:00: 00 Yes [id number] 1{patch } Apply 1 Patch to area(s) daily. [facility] famotidine 20 mg tablet 2021-06 00:00: 00 Yes [id number] 20mg Take 1 tablet by mouth in the morning and 1 tablet in the evening. [facility] albuterol 2.5 mg /3 mL (0.083 %) nebulizer solution 2021-06 00:00: 00 Yes [id number] 2.5mg Inhale 3 mL every 6 (six) hours as needed for Wheezing or Shortness of Breath. [facility] ipratropium 0.02 % nebulizer solution 2021-06 00:00: 00 Yes [id number] .5mg Inhale 2.5 mL every 6 (six) hours as needed for Wheezing or Shortness of Breath. [facility] fluticasone propionate (FLOVENT HFA) 110 mcg/actuati on inhaler 2021-06 00:00: 00 Yes [id number] 2{puff} Inhale 2 Puffs every 12 (twelve) hours. [facility] albuterol 2.5 mg/0.5 mL nebulizer solution 2021-06 00:00: 00 Yes [id number] 2.5mg Inhale 0.5 mL every 6 (six) hours as needed for Wheezing. [facility] lidocaine 1.8 % PtMd 2021-06 0 00:00: 00 Yes [id number] 1{patch } Apply 1 Patch to area(s) daily. [facility] famotidine 20 mg tablet 2021-06 00:00: 00 Yes [id number] 20mg Take 1 tablet by mouth in the morning and 1 tablet in the evening. [facility] albuterol 2.5 mg /3 mL (0.083 %) nebulizer solution 2021-06 00:00: 00 Yes [id number] 2.5mg Inhale 3 mL every 6 (six) hours as needed for Wheezing or Shortness of Breath. [facility] ipratropium 0.02 % nebulizer solution 2021-06 00:00: 00 Yes [id number] .5mg Inhale 2.5 mL every 6 (six) hours as needed for Wheezing or Shortness of Breath. [facility] fluticasone propionate (FLOVENT HFA) 110 mcg/actuati on inhaler 2021-06 00:00: 00 Yes [id number] 2{puff} Inhale 2 Puffs every 12 (twelve) hours. [facility] albuterol 2.5 mg/0.5 mL nebulizer solution 2021-06 00:00: 00 Yes [id number] 2.5mg Inhale 0.5 mL every 6 (six) hours as needed for Wheezing. [facility] lidocaine 1.8 % PtMd 2021-06 00:00: 00 Yes [id number] 1{patch } Apply 1 Patch to area(s) daily. [facility] famotidine 20 mg tablet 2021-06 00:00: 00 Yes [id number] 20mg Take 1 tablet by mouth in the morning and 1 tablet in the evening. [facility] albuterol 2.5 mg /3 mL (0.083 %) nebulizer solution 2021-06 00:00: 00 Yes [id number] 2.5mg Inhale 3 mL every 6 (six) hours as needed for Wheezing or Shortness of Breath. [facility] ipratropium 0.02 % nebulizer solution 2021-06 00:00: 00 Yes [id number] .5mg Inhale 2.5 mL every 6 (six) hours as needed for Wheezing or Shortness of Breath. [facility] fluticasone propionate (FLOVENT HFA) 110 mcg/actuati on inhaler 2021-06 00:00: 00 Yes [id number] 2{puff} Inhale 2 Puffs every 12 (twelve) hours. [facility] albuterol 2.5 mg/0.5 mL nebulizer solution 2021-06 00:00: 00 Yes [id number] 2.5mg Inhale 0.5 mL every 6 (six) hours as needed for Wheezing. [facility] lidocaine 1.8 % PtMd 2021-06 00:00: 00 Yes [id number] 1{patch } Apply 1 Patch to area(s) daily. [facility] hydroCHLORO thiazide 50 mg tablet 2021-06 00:00: 00 Yes [id number] take one pill PO Daily [facility] famotidine 20 mg tablet 2021-06 00:00: 00 Yes [id number] 20mg Take 1 tablet by mouth in the morning and 1 tablet in the evening. [facility] albuterol 2.5 mg /3 mL (0.083 %) nebulizer solution 2021-06 00:00: 00 Yes [id number] 2.5mg Inhale 3 mL every 6 (six) hours as needed for Wheezing or Shortness of Breath. [facility] ipratropium 0.02 % nebulizer solution 2021-06 00:00: 00 Yes [id number] .5mg Inhale 2.5 mL every 6 (six) hours as needed for Wheezing or Shortness of Breath. [facility] fluticasone propionate (FLOVENT HFA) 110 mcg/actuati on inhaler 2021-06 00:00: 00 Yes [id number] 2{puff} Inhale 2 Puffs every 12 (twelve) hours. [facility] albuterol 2.5 mg/0.5 mL nebulizer solution 2021-06 00:00: 00 Yes [id number] 2.5mg Inhale 0.5 mL every 6 (six) hours as needed for Wheezing. [facility] losartan 100 mg tablet 2021-06 00:00: 00 Yes [id number] 100mg Take 1 tablet by mouth in the morning. [facility] lidocaine 1.8 % PtMd 2021-06 00:00: 00 Yes [id number] 1{patch } Apply 1 Patch to area(s) daily. [facility] furosemide 20 mg tablet 2021-06 00:00: 00 Yes [id number] 20mg Take 1 tablet by mouth in the morning. [facility] apixaban (ELIQUIS) 2.5 mg tablet 2021-06 00:00: 00 Yes [id number] 2.5mg Take 1 tablet by mouth in the morning and 1 tablet in the evening. Indication s: atrial fibrillati on [facility] famotidine 20 mg tablet 2021-06 00:00: 00 Yes [id number] 20mg Take 1 tablet by mouth in the morning and 1 tablet in the evening. [facility] albuterol 2.5 mg /3 mL (0.083 %) nebulizer solution 2021-06 00:00: 00 Yes [id number] 2.5mg Inhale 3 mL every 6 (six) hours as needed for Wheezing or Shortness of Breath. [facility] ipratropium 0.02 % nebulizer solution 2021-06 00:00: 00 Yes [id number] .5mg Inhale 2.5 mL every 6 (six) hours as needed for Wheezing or Shortness of Breath. [facility] fluticasone propionate (FLOVENT HFA) 110 mcg/actuati on inhaler 2021-06 00:00: 00 Yes [id number] 2{puff} Inhale 2 Puffs every 12 (twelve) hours. [facility] albuterol 2.5 mg/0.5 mL nebulizer solution 2021-06 00:00: 00 Yes [id number] 2.5mg Inhale 0.5 mL every 6 (six) hours as needed for Wheezing. [facility] lidocaine 1.8 % PtMd 2021-06 00:00: 00 Yes [id number] 1{patch } Apply 1 Patch to area(s) daily. [facility] famotidine 20 mg tablet 2021-06 00:00: 00 Yes [id number] 20mg Take 1 tablet by mouth in the morning and 1 tablet in the evening. [facility] metoprolol succinate XL (TOPROL XL) 100 mg 24 hr tablet 2021-06 00:00: 00 Yes [id number] 100mg Take 1 tablet by mouth in the morning. [facility] famotidine 20 mg tablet 2021-06 00:00: 00 Yes [id number] 20mg Take 1 tablet by mouth in the morning and 1 tablet in the evening. [facility] albuterol 2.5 mg /3 mL (0.083 %) nebulizer solution 2021-06 00:00: 00 Yes [id number] 2.5mg Inhale 3 mL every 6 (six) hours as needed for Wheezing or Shortness of Breath. [facility] albuterol 2.5 mg /3 mL (0.083 %) nebulizer solution 2021-06 00:00: 00 Yes [id number] 2.5mg Inhale 3 mL every 6 (six) hours as needed for Wheezing or Shortness of Breath. [facility] ipratropium 0.02 % nebulizer solution 2021-06 00:00: 00 Yes [id number] .5mg Inhale 2.5 mL every 6 (six) hours as needed for Wheezing or Shortness of Breath. [facility] fluticasone propionate (FLOVENT HFA) 110 mcg/actuati on inhaler 2021-06 00:00: 00 Yes [id number] 2{puff} Inhale 2 Puffs every 12 (twelve) hours. [facility] albuterol 2.5 mg/0.5 mL nebulizer solution 2021-06 00:00: 00 Yes [id number] 2.5mg Inhale 0.5 mL every 6 (six) hours as needed for Wheezing. [facility] lidocaine 1.8 % PtMd 2021-06 00:00: 00 Yes [id number] 1{patch } Apply 1 Patch to area(s) daily. [facility] ipratropium 0.02 % nebulizer solution 2021-06 00:00: 00 Yes [id number] .5mg Inhale 2.5 mL every 6 (six) hours as needed for Wheezing or Shortness of Breath. [facility] fluticasone propionate (FLOVENT HFA) 110 mcg/actuati on inhaler 2021-06 00:00: 00 Yes [id number] 2{puff} Inhale 2 Puffs every 12 (twelve) hours. [facility] famotidine 20 mg tablet 2021-06 00:00: 00 Yes [id number] 20mg Take 1 tablet by mouth in the morning and 1 tablet in the evening. [facility] albuterol 2.5 mg /3 mL (0.083 %) nebulizer solution 2021-06 00:00: 00 Yes [id number] 2.5mg Inhale 3 mL every 6 (six) hours as needed for Wheezing or Shortness of Breath. [facility] ipratropium 0.02 % nebulizer solution 2021-06 00:00: 00 Yes [id number] .5mg Inhale 2.5 mL every 6 (six) hours as needed for Wheezing or Shortness of Breath. [facility] fluticasone propionate (FLOVENT HFA) 110 mcg/actuati on inhaler 2021-06 00:00: 00 Yes [id number] 2{puff} Inhale 2 Puffs every 12 (twelve) hours. [facility] albuterol 2.5 mg/0.5 mL nebulizer solution 2021-06 00:00: 00 Yes [id number] 2.5mg Inhale 0.5 mL every 6 (six) hours as needed for Wheezing. [facility] lidocaine 1.8 % PtMd 2021-06 00:00: 00 Yes [id number] 1{patch } Apply 1 Patch to area(s) daily. [facility] albuterol 2.5 mg/0.5 mL nebulizer solution 2021-06 00:00: 00 Yes [id number] 2.5mg Inhale 0.5 mL every 6 (six) hours as needed for Wheezing. [facility] amitriptyli ne 10 mg tablet 2021-06 00:00: 00 Yes [id number] 5mg Take 0.5 tablets by mouth at bedtime. [facility] famotidine 20 mg tablet 2021-06 00:00: 00 Yes [id number] 20mg Take 1 tablet by mouth in the morning and 1 tablet in the evening. [facility] albuterol 2.5 mg /3 mL (0.083 %) nebulizer solution 2021-06 00:00: 00 Yes [id number] 2.5mg Inhale 3 mL every 6 (six) hours as needed for Wheezing or Shortness of Breath. [facility] ipratropium 0.02 % nebulizer solution 2021-06 00:00: 00 Yes [id number] .5mg Inhale 2.5 mL every 6 (six) hours as needed for Wheezing or Shortness of Breath. [facility] fluticasone propionate (FLOVENT HFA) 110 mcg/actuati on inhaler 2021-06 00:00: 00 Yes [id number] 2{puff} Inhale 2 Puffs every 12 (twelve) hours. [facility] albuterol 2.5 mg/0.5 mL nebulizer solution 2021-06 00:00: 00 Yes [id number] 2.5mg Inhale 0.5 mL every 6 (six) hours as needed for Wheezing. [facility] lidocaine 1.8 % PtMd 2021-06 00:00: 00 Yes [id number] 1{patch } Apply 1 Patch to area(s) daily. [facility] traMADoL-ac etaminophen 37.5-325 mg per tablet 2021-06 00:00: 00 Yes [id number] 1{tbl} Take 1 tablet by mouth every 6 (six) hours as needed for Pain. Indication s: chronic pain [facility] lidocaine 1.8 % PtMd 2021-06 00:00: 00 Yes [id number] 1{patch } Apply 1 Patch to area(s) daily. [facility] famotidine 20 mg tablet 2021-06 00:00: 00 Yes [id number] 20mg Take 1 tablet by mouth in the morning and 1 tablet in the evening. [facility] albuterol 2.5 mg /3 mL (0.083 %) nebulizer solution 2021-06 00:00: 00 Yes [id number] 2.5mg Inhale 3 mL every 6 (six) hours as needed for Wheezing or Shortness of Breath. [facility] ipratropium 0.02 % nebulizer solution 2021-06 00:00: 00 Yes [id number] .5mg Inhale 2.5 mL every 6 (six) hours as needed for Wheezing or Shortness of Breath. [facility] fluticasone propionate (FLOVENT HFA) 110 mcg/actuati on inhaler 2021-06 00:00: 00 Yes [id number] 2{puff} Inhale 2 Puffs every 12 (twelve) hours. [facility] albuterol 2.5 mg/0.5 mL nebulizer solution 2021-06 00:00: 00 Yes [id number] 2.5mg Inhale 0.5 mL every 6 (six) hours as needed for Wheezing. [facility] lidocaine 1.8 % PtMd 2021-06 00:00: 00 Yes [id number] 1{patch } Apply 1 Patch to area(s) daily. [facility] famotidine 20 mg tablet 2021-06 00:00: 00 Yes [id number] 20mg Take 1 tablet by mouth in the morning and 1 tablet in the evening. [facility] albuterol 2.5 mg /3 mL (0.083 %) nebulizer solution 2021-06 00:00: 00 Yes [id number] 2.5mg Inhale 3 mL every 6 (six) hours as needed for Wheezing or Shortness of Breath. [facility] ipratropium 0.02 % nebulizer solution 2021-06 00:00: 00 Yes [id number] .5mg Inhale 2.5 mL every 6 (six) hours as needed for Wheezing or Shortness of Breath. [facility] fluticasone propionate (FLOVENT HFA) 110 mcg/actuati on inhaler 2021-06 00:00: 00 Yes [id number] 2{puff} Inhale 2 Puffs every 12 (twelve) hours. [facility] albuterol 2.5 mg/0.5 mL nebulizer solution 2021-06 00:00: 00 Yes [id number] 2.5mg Inhale 0.5 mL every 6 (six) hours as needed for Wheezing. [facility] lidocaine 1.8 % PtMd 2021-06 00:00: 00 Yes [id number] 1{patch } Apply 1 Patch to area(s) daily. [facility] famotidine 20 mg tablet 2021-06 00:00: 00 Yes [id number] 20mg Take 1 tablet by mouth in the morning and 1 tablet in the evening. [facility] albuterol 2.5 mg /3 mL (0.083 %) nebulizer solution 2021-06 00:00: 00 Yes [id number] 2.5mg Inhale 3 mL every 6 (six) hours as needed for Wheezing or Shortness of Breath. [facility] ipratropium 0.02 % nebulizer solution 2021-06 00:00: 00 Yes [id number] .5mg Inhale 2.5 mL every 6 (six) hours as needed for Wheezing or Shortness of Breath. [facility] fluticasone propionate (FLOVENT HFA) 110 mcg/actuati on inhaler 2021-06 00:00: 00 Yes [id number] 2{puff} Inhale 2 Puffs every 12 (twelve) hours. [facility] albuterol 2.5 mg/0.5 mL nebulizer solution 2021-06 00:00: 00 Yes [id number] 2.5mg Inhale 0.5 mL every 6 (six) hours as needed for Wheezing. [facility] lidocaine 1.8 % PtMd 2021-06 00:00: 00 Yes [id number] 1{patch } Apply 1 Patch to area(s) daily. [facility] famotidine 20 mg tablet 2021-06 00:00: 00 Yes [id number] 20mg Take 1 tablet by mouth in the morning and 1 tablet in the evening. [facility] albuterol 2.5 mg /3 mL (0.083 %) nebulizer solution 2021-06 00:00: 00 Yes [id number] 2.5mg Inhale 3 mL every 6 (six) hours as needed for Wheezing or Shortness of Breath. [facility] ipratropium 0.02 % nebulizer solution 2021-06 00:00: 00 Yes [id number] .5mg Inhale 2.5 mL every 6 (six) hours as needed for Wheezing or Shortness of Breath. [facility] fluticasone propionate (FLOVENT HFA) 110 mcg/actuati on inhaler 2021-06 00:00: 00 Yes [id number] 2{puff} Inhale 2 Puffs every 12 (twelve) hours. [facility] albuterol 2.5 mg/0.5 mL nebulizer solution 2021-06 00:00: 00 Yes [id number] 2.5mg Inhale 0.5 mL every 6 (six) hours as needed for Wheezing. [facility] lidocaine 1.8 % PtMd 2021-06 00:00: 00 Yes [id number] 1{patch } Apply 1 Patch to area(s) daily. [facility] albuterol 2.5 mg /3 mL (0.083 %) nebulizer solution 2021-06 00:00: 00 Yes [id number] 2.5mg Inhale 3 mL every 6 (six) hours as needed for Wheezing or Shortness of Breath. [facility] ipratropium 0.02 % nebulizer solution 2021-06 00:00: 00 Yes [id number] .5mg Inhale 2.5 mL every 6 (six) hours as needed for Wheezing or Shortness of Breath. [facility] fluticasone propionate (FLOVENT HFA) 110 mcg/actuati on inhaler 2021-06 00:00: 00 Yes [id number] 2{puff} Inhale 2 Puffs every 12 (twelve) hours. [facility] albuterol 2.5 mg/0.5 mL nebulizer solution 2021-06 00:00: 00 Yes [id number] 2.5mg Inhale 0.5 mL every 6 (six) hours as needed for Wheezing. [facility] lidocaine 1.8 % PtMd 2021-06 00:00: 00 Yes [id number] 1{patch } Apply 1 Patch to area(s) daily. [facility] albuterol 2.5 mg /3 mL (0.083 %) nebulizer solution 2021-06 00:00: 00 Yes [id number] 2.5mg Inhale 3 mL every 6 (six) hours as needed for Wheezing or Shortness of Breath. [facility] ipratropium 0.02 % nebulizer solution 2021-06 00:00: 00 Yes [id number] .5mg Inhale 2.5 mL every 6 (six) hours as needed for Wheezing or Shortness of Breath. [facility] fluticasone propionate (FLOVENT HFA) 110 mcg/actuati on inhaler 2021-06 00:00: 00 Yes [id number] 2{puff} Inhale 2 Puffs every 12 (twelve) hours. [facility] albuterol 2.5 mg/0.5 mL nebulizer solution 2021-06 00:00: 00 Yes [id number] 2.5mg Inhale 0.5 mL every 6 (six) hours as needed for Wheezing. [facility] lidocaine 1.8 % PtMd 2021-06 00:00: 00 Yes [id number] 1{patch } Apply 1 Patch to area(s) daily. [facility] albuterol 2.5 mg /3 mL (0.083 %) nebulizer solution 2021-06 00:00: 00 Yes [id number] 2.5mg Inhale 3 mL every 6 (six) hours as needed for Wheezing or Shortness of Breath. [facility] ipratropium 0.02 % nebulizer solution 2021-06 00:00: 00 Yes [id number] .5mg Inhale 2.5 mL every 6 (six) hours as needed for Wheezing or Shortness of Breath. [facility] fluticasone propionate (FLOVENT HFA) 110 mcg/actuati on inhaler 2021-06 00:00: 00 Yes [id number] 2{puff} Inhale 2 Puffs every 12 (twelve) hours. [facility] albuterol 2.5 mg/0.5 mL nebulizer solution 2021-06 00:00: 00 Yes [id number] 2.5mg Inhale 0.5 mL every 6 (six) hours as needed for Wheezing. [facility] lidocaine 1.8 % PtMd 2021-06 00:00: 00 Yes [id number] 1{patch } Apply 1 Patch to area(s) daily. [facility] albuterol 2.5 mg /3 mL (0.083 %) nebulizer solution 2021-06 00:00: 00 Yes [id number] 2.5mg Inhale 3 mL every 6 (six) hours as needed for Wheezing or Shortness of Breath. [facility] ipratropium 0.02 % nebulizer solution 2021-06 00:00: 00 Yes [id number] .5mg Inhale 2.5 mL every 6 (six) hours as needed for Wheezing or Shortness of Breath. [facility] fluticasone propionate (FLOVENT HFA) 110 mcg/actuati on inhaler 2021-06 00:00: 00 Yes [id number] 2{puff} Inhale 2 Puffs every 12 (twelve) hours. [facility] albuterol 2.5 mg/0.5 mL nebulizer solution 2021-06 00:00: 00 Yes [id number] 2.5mg Inhale 0.5 mL every 6 (six) hours as needed for Wheezing. [facility] lidocaine 1.8 % PtMd 2021-06 0 00:00: 00 Yes [id number] 1{patch } Apply 1 Patch to area(s) daily. [facility] albuterol 2.5 mg /3 mL (0.083 %) nebulizer solution 2021-06 00:00: 00 Yes [id number] 2.5mg Inhale 3 mL every 6 (six) hours as needed for Wheezing or Shortness of Breath. [facility] ipratropium 0.02 % nebulizer solution 2021-06 00:00: 00 Yes [id number] .5mg Inhale 2.5 mL every 6 (six) hours as needed for Wheezing or Shortness of Breath. [facility] fluticasone propionate (FLOVENT HFA) 110 mcg/actuati on inhaler 2021-06 00:00: 00 Yes [id number] 2{puff} Inhale 2 Puffs every 12 (twelve) hours. [facility] albuterol 2.5 mg/0.5 mL nebulizer solution 2021-06 00:00: 00 Yes [id number] 2.5mg Inhale 0.5 mL every 6 (six) hours as needed for Wheezing. [facility] lidocaine 1.8 % PtMd 2021-06 00:00: 00 Yes [id number] 1{patch } Apply 1 Patch to area(s) daily. [facility] albuterol 2.5 mg /3 mL (0.083 %) nebulizer solution 2021-06 00:00: 00 Yes [id number] 2.5mg Inhale 3 mL every 6 (six) hours as needed for Wheezing or Shortness of Breath. [facility] ipratropium 0.02 % nebulizer solution 2021-06 00:00: 00 Yes [id number] .5mg Inhale 2.5 mL every 6 (six) hours as needed for Wheezing or Shortness of Breath. [facility] fluticasone propionate (FLOVENT HFA) 110 mcg/actuati on inhaler 2021-06 00:00: 00 Yes [id number] 2{puff} Inhale 2 Puffs every 12 (twelve) hours. [facility] albuterol 2.5 mg/0.5 mL nebulizer solution 2021-06 00:00: 00 Yes [id number] 2.5mg Inhale 0.5 mL every 6 (six) hours as needed for Wheezing. [facility] lidocaine 1.8 % PtMd 2021-06 00:00: 00 Yes [id number] 1{patch } Apply 1 Patch to area(s) daily. [facility] albuterol 2.5 mg /3 mL (0.083 %) nebulizer solution 2021-06 00:00: 00 Yes [id number] 2.5mg Inhale 3 mL every 6 (six) hours as needed for Wheezing or Shortness of Breath. [facility] ipratropium 0.02 % nebulizer solution 2021-06 00:00: 00 Yes [id number] .5mg Inhale 2.5 mL every 6 (six) hours as needed for Wheezing or Shortness of Breath. [facility] fluticasone propionate (FLOVENT HFA) 110 mcg/actuati on inhaler 2021-06 00:00: 00 Yes [id number] 2{puff} Inhale 2 Puffs every 12 (twelve) hours. [facility] albuterol 2.5 mg/0.5 mL nebulizer solution 2021-06 00:00: 00 Yes [id number] 2.5mg Inhale 0.5 mL every 6 (six) hours as needed for Wheezing. [facility] lidocaine 1.8 % PtMd 2021-06 00:00: 00 Yes [id number] 1{patch } Apply 1 Patch to area(s) daily. [facility] hydroCHLORO thiazide 50 mg tablet 2021-06 00:00: 00 Yes [id number] take one pill PO Daily [facility] losartan 100 mg tablet 2021-06 00:00: 00 Yes [id number] 100mg Take 1 tablet by mouth in the morning. [facility] albuterol 2.5 mg /3 mL (0.083 %) nebulizer solution 2021-06 00:00: 00 Yes [id number] 2.5mg Inhale 3 mL every 6 (six) hours as needed for Wheezing or Shortness of Breath. [facility] ipratropium 0.02 % nebulizer solution 2021-06 00:00: 00 Yes [id number] .5mg Inhale 2.5 mL every 6 (six) hours as needed for Wheezing or Shortness of Breath. [facility] fluticasone propionate (FLOVENT HFA) 110 mcg/actuati on inhaler 2021-06 00:00: 00 Yes [id number] 2{puff} Inhale 2 Puffs every 12 (twelve) hours. [facility] albuterol 2.5 mg/0.5 mL nebulizer solution 2021-06 00:00: 00 Yes [id number] 2.5mg Inhale 0.5 mL every 6 (six) hours as needed for Wheezing. [facility] lidocaine 1.8 % PtMd 2021-06 00:00: 00 Yes [id number] 1{patch } Apply 1 Patch to area(s) daily. [facility] furosemide 20 mg tablet 2021-06 00:00: 00 Yes [id number] 20mg Take 1 tablet by mouth in the morning. [facility] apixaban (ELIQUIS) 2.5 mg tablet 2021-06 00:00: 00 Yes [id number] 2.5mg Take 1 tablet by mouth in the morning and 1 tablet in the evening. Indication s: atrial fibrillati on [facility] albuterol 2.5 mg /3 mL (0.083 %) nebulizer solution 2021-06 00:00: 00 Yes [id number] 2.5mg Inhale 3 mL every 6 (six) hours as needed for Wheezing or Shortness of Breath. [facility] ipratropium 0.02 % nebulizer solution 2021-06 00:00: 00 Yes [id number] .5mg Inhale 2.5 mL every 6 (six) hours as needed for Wheezing or Shortness of Breath. [facility] famotidine 20 mg tablet 2021-06 00:00: 00 Yes [id number] 20mg Take 1 tablet by mouth in the morning and 1 tablet in the evening. [facility] fluticasone propionate (FLOVENT HFA) 110 mcg/actuati on inhaler 2021-06 00:00: 00 Yes [id number] 2{puff} Inhale 2 Puffs every 12 (twelve) hours. [facility] albuterol 2.5 mg/0.5 mL nebulizer solution 2021-06 00:00: 00 Yes [id number] 2.5mg Inhale 0.5 mL every 6 (six) hours as needed for Wheezing. [facility] lidocaine 1.8 % PtMd 2021-06 00:00: 00 Yes [id number] 1{patch } Apply 1 Patch to area(s) daily. [facility] metoprolol succinate XL (TOPROL XL) 100 mg 24 hr tablet 2021-06 00:00: 00 Yes [id number] 100mg Take 1 tablet by mouth in the morning. [facility] albuterol 2.5 mg /3 mL (0.083 %) nebulizer solution 2021-06 00:00: 00 Yes [id number] 2.5mg Inhale 3 mL every 6 (six) hours as needed for Wheezing or Shortness of Breath. [facility] albuterol 2.5 mg /3 mL (0.083 %) nebulizer solution 2021-06 00:00: 00 Yes [id number] 2.5mg Inhale 3 mL every 6 (six) hours as needed for Wheezing or Shortness of Breath. [facility] ipratropium 0.02 % nebulizer solution 2021-06 00:00: 00 Yes [id number] .5mg Inhale 2.5 mL every 6 (six) hours as needed for Wheezing or Shortness of Breath. [facility] fluticasone propionate (FLOVENT HFA) 110 mcg/actuati on inhaler 2021-06 00:00: 00 Yes [id number] 2{puff} Inhale 2 Puffs every 12 (twelve) hours. [facility] albuterol 2.5 mg/0.5 mL nebulizer solution 2021-06 00:00: 00 Yes [id number] 2.5mg Inhale 0.5 mL every 6 (six) hours as needed for Wheezing. [facility] lidocaine 1.8 % PtMd 2021-06 00:00: 00 Yes [id number] 1{patch } Apply 1 Patch to area(s) daily. [facility] ipratropium 0.02 % nebulizer solution 2021-06 00:00: 00 Yes [id number] .5mg Inhale 2.5 mL every 6 (six) hours as needed for Wheezing or Shortness of Breath. [facility] fluticasone propionate (FLOVENT HFA) 110 mcg/actuati on inhaler 2021-06 00:00: 00 Yes [id number] 2{puff} Inhale 2 Puffs every 12 (twelve) hours. [facility] albuterol 2.5 mg/0.5 mL nebulizer solution 2021-06 00:00: 00 Yes [id number] 2.5mg Inhale 0.5 mL every 6 (six) hours as needed for Wheezing. [facility] albuterol 2.5 mg /3 mL (0.083 %) nebulizer solution 2021-06 00:00: 00 Yes [id number] 2.5mg Inhale 3 mL every 6 (six) hours as needed for Wheezing or Shortness of Breath. [facility] ipratropium 0.02 % nebulizer solution 2021-06 00:00: 00 Yes [id number] .5mg Inhale 2.5 mL every 6 (six) hours as needed for Wheezing or Shortness of Breath. [facility] fluticasone propionate (FLOVENT HFA) 110 mcg/actuati on inhaler 2021-06 00:00: 00 Yes [id number] 2{puff} Inhale 2 Puffs every 12 (twelve) hours. [facility] albuterol 2.5 mg/0.5 mL nebulizer solution 2021-06 00:00: 00 Yes [id number] 2.5mg Inhale 0.5 mL every 6 (six) hours as needed for Wheezing. [facility] lidocaine 1.8 % PtMd 2021-06 00:00: 00 Yes [id number] 1{patch } Apply 1 Patch to area(s) daily. [facility] amitriptyli ne 10 mg tablet 2021-06 00:00: 00 Yes [id number] 5mg Take 0.5 tablets by mouth at bedtime. [facility] traMADoL-ac etaminophen 37.5-325 mg per tablet 2021-06 00:00: 00 Yes [id number] 1{tbl} Take 1 tablet by mouth every 6 (six) hours as needed for Pain. Indication s: chronic pain [facility] 00 Yes [id number] 1{patch } Apply 1 Patch to area(s) daily. [facility] lidocaine 1.8 % [facility] 2021-06 00:00: 00 Yes [id number] 1{patch } Apply 1 Patch to area(s) daily. [facility] lidocaine 1.8 % [facility]d 2021-06 00:00: 00 Yes [id number] 1{patch } Apply 1 Patch to area(s) daily. [facility] hydroCHLORO thiazide 50 mg tablet 2021-06 00:00: 00 Yes [id number] take one pill PO Daily [facility] lidocaine 1.8 % [facility] 2021-06 00:00: 00 Yes [id number] 1{patch } Apply 1 Patch to area(s) daily. [facility] losartan 100 mg tablet 2021-06 00:00: 00 Yes [id number] 100mg Take 1 tablet by mouth in the morning. [facility] furosemide 20 mg tablet 2021-06 00:00: 00 Yes [id number] 20mg Take 1 tablet by mouth in the morning. [facility] apixaban (ELIQUIS) 2.5 mg tablet 2021-06 00:00: 00 Yes [id number] 2.5mg Take 1 tablet by mouth in the morning and 1 tablet in the evening. Indication s: atrial fibrillati on [facility] famotidine 20 mg tablet 2021-06 00:00: 00 Yes [id number] 20mg Take 1 tablet by mouth in the morning and 1 tablet in the evening. [facility] lidocaine 1.8 % [facility] 2021-06 00:00: 00 Yes [id number] 1{patch } Apply 1 Patch to area(s) daily. [facility] albuterol 2.5 mg /3 mL (0.083 %) nebulizer solution 2021-06 00:00: 00 Yes [id number] 2.5mg Inhale 3 mL every 6 (six) hours as needed for Wheezing or Shortness of Breath. [facility] ipratropium 0.02 % nebulizer solution 2021-06 00:00: 00 Yes [id number] .5mg Inhale 2.5 mL every 6 (six) hours as needed for Wheezing or Shortness of Breath. [facility] fluticasone propionate (FLOVENT HFA) 110 mcg/actuati on inhaler 2021-06 00:00: 00 Yes [id number] 2{puff} Inhale 2 Puffs every 12 (twelve) hours. [facility] lidocaine 1.8 % [facility] 2021-06 00:00: 00 Yes [id number] 1{patch } Apply 1 Patch to area(s) daily. [facility] albuterol 2.5 mg/0.5 mL nebulizer solution 2021-06 00:00: 00 Yes [id number] 2.5mg Inhale 0.5 mL every 6 (six) hours as needed for Wheezing. [facility] amitriptyli ne 10 mg tablet 2021-06 00:00: 00 Yes [id number] 5mg Take 0.5 tablets by mouth at bedtime. [facility] lidocaine 1.8 % [facility] 2021-06 00:00: 00 Yes [id number] 1{patch } Apply 1 Patch to area(s) daily. [facility] traMADoL-ac etaminophen 37.5-325 mg per tablet 2021-06 00:00: 00 Yes [id number] 1{tbl} Take 1 tablet by mouth every 6 (six) hours as needed for Pain. Indication s: chronic pain [facility] lidocaine 1.8 % [facility] 2021-06 00:00: 00 Yes [id number] 1{patch } Apply 1 Patch to area(s) daily. [facility] lidocaine 1.8 % [facility] 2021-06 0 00:00: 00 Yes [id number] 1{patch } Apply 1 Patch to area(s) daily. [facility] lidocaine 1.8 % [facility] 2021-06 0 00:00: 00 Yes [id number] 1{patch } Apply 1 Patch to area(s) daily. [facility] hydroCHLORO thiazide 50 mg tablet 2021-06 00:00: 00 Yes [id number] take one pill PO Daily [facility] losartan 100 mg tablet 2021-06 00:00: 00 Yes [id number] 100mg Take 1 tablet by mouth in the morning. [facility] lidocaine 1.8 % [facility] 2021-06 00:00: 00 Yes [id number] 1{patch } Apply 1 Patch to area(s) daily. [facility] furosemide 20 mg tablet 2021-06 00:00: 00 Yes [id number] 20mg Take 1 tablet by mouth in the morning. [facility] apixaban (ELIQUIS) 2.5 mg tablet 2021-06 00:00: 00 Yes 1358 2.5mg Take 1 tablet by mouth in the morning and 1 tablet in the evening. Indication s: atrial fibrillati on [facility] famotidine 20 mg tablet 2021-06 00:00: 00 Yes [id number] 20mg Take 1 tablet by mouth in the morning and 1 tablet in the evening. [facility] lidocaine 1.8 % [facility] 2021-06 00:00: 00 Yes [id number] 1{patch } Apply 1 Patch to area(s) daily. [facility] albuterol 2.5 mg /3 mL (0.083 %) nebulizer solution 2021-06 00:00: 00 Yes [id number] 2.5mg Inhale 3 mL every 6 (six) hours as needed for Wheezing or Shortness of Breath. [facility] ipratropium 0.02 % nebulizer solution 2021-06 00:00: 00 Yes [id number] .5mg Inhale 2.5 mL every 6 (six) hours as needed for Wheezing or Shortness of Breath. [facility] fluticasone propionate (FLOVENT HFA) 110 mcg/actuati on inhaler 2021-06 00:00: 00 Yes [id number] 2{puff} Inhale 2 Puffs every 12 (twelve) hours. [facility] lidocaine 1.8 % [facility] 2021-06 00:00: 00 Yes [id number] 1{patch } Apply 1 Patch to area(s) daily. [facility] albuterol 2.5 mg/0.5 mL nebulizer solution 2021-06 00:00: 00 Yes [id number] 2.5mg Inhale 0.5 mL every 6 (six) hours as needed for Wheezing. [facility] amitriptyli ne 10 mg tablet 2021-06 00:00: 00 Yes [id number] 5mg Take 0.5 tablets by mouth at bedtime. [facility]: 00 Yes [id number] 1{patch } Apply 1 Patch to area(s) daily. [facility] traMADoL-ac etaminophen 37.5-325 mg per tablet 2021-06 00:00: 00 Yes [id number] 1{tbl} Take 1 tablet by mouth every 6 (six) hours as needed for Pain. Indication s: chronic pain [facility] lidocaine 1.8 % [facility] 2021-06 00:00: 00 Yes [id number] 1{patch } Apply 1 Patch to area(s) daily. [facility] lidocaine 1.8 % [facility] 2021-06 00:00: 00 Yes [id number] 1{patch } Apply 1 Patch to area(s) daily. [facility] lidocaine 1.8 % [facility] 2021-06 0 00:00: 00 Yes [id number] 1{patch } Apply 1 Patch to area(s) daily. [facility] lidocaine 1.8 % [facility] 2021-06 00:00: 00 Yes [id number] 1{patch } Apply 1 Patch to area(s) daily. [facility] hydroCHLORO thiazide 50 mg tablet 2021-06 00:00: 00 Yes [id number] take one pill PO Daily [facility] lidocaine 1.8 % [facility] 2021-06 00:00: 00 Yes [id number] 1{patch } Apply 1 Patch to area(s) daily. [facility] losartan 100 mg tablet 2021-06 00:00: 00 Yes [id number] 100mg Take 1 tablet by mouth in the morning. [facility] furosemide 20 mg tablet 2021-06 00:00: 00 Yes [id number] 20mg Take 1 tablet by mouth in the morning. [facility] apixaban (ELIQUIS) 2.5 mg tablet 2021-06 00:00: 00 Yes 1358 2.5mg Take 1 tablet by mouth in the morning and 1 tablet in the evening. Indication s: atrial fibrillati on [facility] famotidine 20 mg tablet 2021-06 00:00: 00 Yes [id number] 20mg Take 1 tablet by mouth in the morning and 1 tablet in the evening. [facility] albuterol 2.5 mg /3 mL (0.083 %) nebulizer solution 2021-06 00:00: 00 Yes [id number] 2.5mg Inhale 3 mL every 6 (six) hours as needed for Wheezing or Shortness of Breath. [facility] lidocaine 1.8 % [facility] 2021-06 00:00: 00 Yes [id number] 1{patch } Apply 1 Patch to area(s) daily. [facility] ipratropium 0.02 % nebulizer solution 2021-06 00:00: 00 Yes [id number] .5mg Inhale 2.5 mL every 6 (six) hours as needed for Wheezing or Shortness of Breath. [facility] fluticasone propionate (FLOVENT HFA) 110 mcg/actuati on inhaler 2021-06 00:00: 00 Yes [id number] 2{puff} Inhale 2 Puffs every 12 (twelve) hours. [facility] albuterol 2.5 mg/0.5 mL nebulizer solution 2021-06 00:00: 00 Yes [id number] 2.5mg Inhale 0.5 mL every 6 (six) hours as needed for Wheezing. [facility] lidocaine 1.8 % [facility] 2021-06 00:00: 00 Yes [id number] 1{patch } Apply 1 Patch to area(s) daily. [facility] amitriptyli ne 10 mg tablet 2021-06 00:00: 00 Yes [id number] 5mg Take 0.5 tablets by mouth at bedtime. [facility] traMADoL-ac etaminophen 37.5-325 mg per tablet 2021-06 00:00: 00 Yes [id number] 1{tbl} Take 1 tablet by mouth every 6 (six) hours as needed for Pain. Indication s: chronic pain [facility]: 00 Yes [id number] 1{patch } Apply 1 Patch to area(s) daily. [facility] lidocaine 1.8 % [facility] 2021-06 00:00: 00 Yes [id number] 1{patch } Apply 1 Patch to area(s) daily. [facility] lidocaine 1.8 % [facility] 2021-06 00:00: 00 Yes [id number] 1{patch } Apply 1 Patch to area(s) daily. [facility] lidocaine 1.8 % [facility] 2021-06 00:00: 00 Yes [id number] 1{patch } Apply 1 Patch to area(s) daily. [facility] hydroCHLORO thiazide 50 mg tablet 2021-06 00:00: 00 Yes [id number] take one pill PO Daily [facility] losartan 100 mg tablet 2021-06 00:00: 00 Yes [id number] 100mg Take 1 tablet by mouth in the morning. [facility] furosemide 20 mg tablet 2021-06 00:00: 00 Yes [id number] 20mg Take 1 tablet by mouth in the morning. [facility] apixaban (ELIQUIS) 2.5 mg tablet 2021-06 00:00: 00 Yes 1358 2.5mg Take 1 tablet by mouth in the morning and 1 tablet in the evening. Indication s: atrial fibrillati on [facility] famotidine 20 mg tablet 2021-06 00:00: 00 Yes [id number] 20mg Take 1 tablet by mouth in the morning and 1 tablet in the evening. [facility] albuterol 2.5 mg /3 mL (0.083 %) nebulizer solution 2021-06 00:00: 00 Yes [id number] 2.5mg Inhale 3 mL every 6 (six) hours as needed for Wheezing or Shortness of Breath. [facility] ipratropium 0.02 % nebulizer solution 2021-06 00:00: 00 Yes [id number] .5mg Inhale 2.5 mL every 6 (six) hours as needed for Wheezing or Shortness of Breath. [facility] fluticasone propionate (FLOVENT HFA) 110 mcg/actuati on inhaler 2021-06 00:00: 00 Yes [id number] 2{puff} Inhale 2 Puffs every 12 (twelve) hours. [facility] albuterol 2.5 mg/0.5 mL nebulizer solution 2021-06 00:00: 00 Yes [id number] 2.5mg Inhale 0.5 mL every 6 (six) hours as needed for Wheezing. [facility] lidocaine 1.8 % [facility] 2021-06 00:00: 00 Yes [id number] 1{patch } Apply 1 Patch to area(s) daily. [facility] hydroCHLORO thiazide 50 mg tablet 2021-06 00:00: 00 Yes [id number] take one pill PO Daily [facility] losartan 100 mg tablet 2021-06 00:00: 00 Yes [id number] 100mg Take 1 tablet by mouth in the morning. [facility] furosemide 20 mg tablet 2021-06 00:00: 00 Yes [id number] 20mg Take 1 tablet by mouth in the morning. [facility] apixaban (ELIQUIS) 2.5 mg tablet 2021-06 00:00: 00 Yes 1358 2.5mg Take 1 tablet by mouth in the morning and 1 tablet in the evening. Indication s: atrial fibrillati on [facility] famotidine 20 mg tablet 2021-06 00:00: 00 Yes [id number] 20mg Take 1 tablet by mouth in the morning and 1 tablet in the evening. [facility] albuterol 2.5 mg /3 mL (0.083 %) nebulizer solution 2021-06 00:00: 00 Yes [id number] 2.5mg Inhale 3 mL every 6 (six) hours as needed for Wheezing or Shortness of Breath. [facility] ipratropium 0.02 % nebulizer solution 2021-06 00:00: 00 Yes [id number] .5mg Inhale 2.5 mL every 6 (six) hours as needed for Wheezing or Shortness of Breath. [facility] fluticasone propionate (FLOVENT HFA) 110 mcg/actuati on inhaler 2021-06 00:00: 00 Yes [id number] 2{puff} Inhale 2 Puffs every 12 (twelve) hours. [facility] albuterol 2.5 mg/0.5 mL nebulizer solution 2021-06 00:00: 00 Yes [id number] 2.5mg Inhale 0.5 mL every 6 (six) hours as needed for Wheezing. [facility] lidocaine 1.8 % [facility] 2021-06 00:00: 00 Yes [id number] 1{patch } Apply 1 Patch to area(s) daily. [facility] hydroCHLORO thiazide 50 mg tablet 2021-06 00:00: 00 Yes [id number] take one pill PO Daily [facility] losartan 100 mg tablet 2021-06 00:00: 00 Yes [id number] 100mg Take 1 tablet by mouth in the morning. [facility] furosemide 20 mg tablet 2021-06 00:00: 00 Yes [id number] 20mg Take 1 tablet by mouth in the morning. [facility] apixaban (ELIQUIS) 2.5 mg tablet 2021-06 00:00: 00 Yes 1358 2.5mg Take 1 tablet by mouth in the morning and 1 tablet in the evening. Indication s: atrial fibrillati on [facility] famotidine 20 mg tablet 2021-06 00:00: 00 Yes [id number] 20mg Take 1 tablet by mouth in the morning and 1 tablet in the evening. [facility] albuterol 2.5 mg /3 mL (0.083 %) nebulizer solution 2021-06 00:00: 00 Yes [id number] 2.5mg Inhale 3 mL every 6 (six) hours as needed for Wheezing or Shortness of Breath. [facility] ipratropium 0.02 % nebulizer solution 2021-06 00:00: 00 Yes [id number] .5mg Inhale 2.5 mL every 6 (six) hours as needed for Wheezing or Shortness of Breath. [facility] fluticasone propionate (FLOVENT HFA) 110 mcg/actuati on inhaler 2021-06 00:00: 00 Yes [id number] 2{puff} Inhale 2 Puffs every 12 (twelve) hours. [facility] albuterol 2.5 mg/0.5 mL nebulizer solution 2021-06 00:00: 00 Yes [id number] 2.5mg Inhale 0.5 mL every 6 (six) hours as needed for Wheezing. [facility] lidocaine 1.8 % [facility] 2021-06 00:00: 00 Yes [id number] 1{patch } Apply 1 Patch to area(s) daily. [facility] hydroCHLORO thiazide 50 mg tablet 2021-06 00:00: 00 Yes [id number] take one pill PO Daily [facility] losartan 100 mg tablet 2021-06 00:00: 00 Yes [id number] 100mg Take 1 tablet by mouth in the morning. [facility] furosemide 20 mg tablet 2021-06 00:00: 00 Yes [id number] 20mg Take 1 tablet by mouth in the morning. [facility] apixaban (ELIQUIS) 2.5 mg tablet 2021-06 00:00: 00 Yes 1358 2.5mg Take 1 tablet by mouth in the morning and 1 tablet in the evening. Indication s: atrial fibrillati on [facility] famotidine 20 mg tablet 2021-06 00:00: 00 Yes [id number] 20mg Take 1 tablet by mouth in the morning and 1 tablet in the evening. [facility] albuterol 2.5 mg /3 mL (0.083 %) nebulizer solution 2021-06 00:00: 00 Yes [id number] 2.5mg Inhale 3 mL every 6 (six) hours as needed for Wheezing or Shortness of Breath. [facility] ipratropium 0.02 % nebulizer solution 2021-06 00:00: 00 Yes [id number] .5mg Inhale 2.5 mL every 6 (six) hours as needed for Wheezing or Shortness of Breath. [facility] fluticasone propionate (FLOVENT HFA) 110 mcg/actuati on inhaler 2021-06 00:00: 00 Yes [id number] 2{puff} Inhale 2 Puffs every 12 (twelve) hours. [facility] albuterol 2.5 mg/0.5 mL nebulizer solution 2021-06 00:00: 00 Yes [id number] 2.5mg Inhale 0.5 mL every 6 (six) hours as needed for Wheezing. [facility] lidocaine 1.8 % [facility] 2021-06 00:00: 00 Yes [id number] 1{patch } Apply 1 Patch to area(s) daily. [facility] hydroCHLORO thiazide 50 mg tablet 2021-06 00:00: 00 Yes [id number] take one pill PO Daily [facility] losartan 100 mg tablet 2021-06 00:00: 00 Yes [id number] 100mg Take 1 tablet by mouth in the morning. [facility] furosemide 20 mg tablet 2021-06 00:00: 00 Yes [id number] 20mg Take 1 tablet by mouth in the morning. [facility] apixaban (ELIQUIS) 2.5 mg tablet 2021-06 00:00: 00 Yes 1358 2.5mg Take 1 tablet by mouth in the morning and 1 tablet in the evening. Indication s: atrial fibrillati on [facility] famotidine 20 mg tablet 2021-06 00:00: 00 Yes [id number] 20mg Take 1 tablet by mouth in the morning and 1 tablet in the evening. [facility] albuterol 2.5 mg /3 mL (0.083 %) nebulizer solution 2021-06 00:00: 00 Yes [id number] 2.5mg Inhale 3 mL every 6 (six) hours as needed for Wheezing or Shortness of Breath. [facility] ipratropium 0.02 % nebulizer solution 2021-06 00:00: 00 Yes [id number] .5mg Inhale 2.5 mL every 6 (six) hours as needed for Wheezing or Shortness of Breath. [facility] fluticasone propionate (FLOVENT HFA) 110 mcg/actuati on inhaler 2021-06 00:00: 00 Yes [id number] 2{puff} Inhale 2 Puffs every 12 (twelve) hours. [facility] albuterol 2.5 mg/0.5 mL nebulizer solution 2021-06 00:00: 00 Yes [id number] 2.5mg Inhale 0.5 mL every 6 (six) hours as needed for Wheezing. [facility] lidocaine 1.8 % [facility]d 2021-06 00:00: 00 Yes [id number] 1{patch } Apply 1 Patch to area(s) daily. [facility] hydroCHLORO thiazide 50 mg tablet 2021-06 00:00: 00 Yes [id number] take one pill PO Daily [facility] losartan 100 mg tablet 2021-06 00:00: 00 Yes [id number] 100mg Take 1 tablet by mouth in the morning. [facility] furosemide 20 mg tablet 2021-06 00:00: 00 Yes [id number] 20mg Take 1 tablet by mouth in the morning. [facility] apixaban (ELIQUIS) 2.5 mg tablet 2021-06 00:00: 00 Yes 1358 2.5mg Take 1 tablet by mouth in the morning and 1 tablet in the evening. Indication s: atrial fibrillati on [facility] famotidine 20 mg tablet 2021-06 00:00: 00 Yes [id number] 20mg Take 1 tablet by mouth in the morning and 1 tablet in the evening. [facility] albuterol 2.5 mg /3 mL (0.083 %) nebulizer solution 2021-06 00:00: 00 Yes [id number] 2.5mg Inhale 3 mL every 6 (six) hours as needed for Wheezing or Shortness of Breath. [facility] ipratropium 0.02 % nebulizer solution 2021-06 00:00: 00 Yes [id number] .5mg Inhale 2.5 mL every 6 (six) hours as needed for Wheezing or Shortness of Breath. [facility] fluticasone propionate (FLOVENT HFA) 110 mcg/actuati on inhaler 2021-06 00:00: 00 Yes [id number] 2{puff} Inhale 2 Puffs every 12 (twelve) hours. [facility] albuterol 2.5 mg/0.5 mL nebulizer solution 2021-06 00:00: 00 Yes [id number] 2.5mg Inhale 0.5 mL every 6 (six) hours as needed for Wheezing. [facility] lidocaine 1.8 % [facility]d 2021-06 00:00: 00 Yes [id number] 1{patch } Apply 1 Patch to area(s) daily. [facility] hydroCHLORO thiazide 50 mg tablet 2021-06 00:00: 00 Yes [id number] take one pill PO Daily [facility] losartan 100 mg tablet 2021-06 00:00: 00 Yes [id number] 100mg Take 1 tablet by mouth in the morning. [facility] furosemide 20 mg tablet 2021-06 00:00: 00 Yes [id number] 20mg Take 1 tablet by mouth in the morning. [facility] apixaban (ELIQUIS) 2.5 mg tablet 2021-06 00:00: 00 Yes 1358 2.5mg Take 1 tablet by mouth in the morning and 1 tablet in the evening. Indication s: atrial fibrillati on [facility] famotidine 20 mg tablet 2021-06 00:00: 00 Yes [id number] 20mg Take 1 tablet by mouth in the morning and 1 tablet in the evening. [facility] albuterol 2.5 mg /3 mL (0.083 %) nebulizer solution 2021-06 00:00: 00 Yes [id number] 2.5mg Inhale 3 mL every 6 (six) hours as needed for Wheezing or Shortness of Breath. [facility] ipratropium 0.02 % nebulizer solution 2021-06 00:00: 00 Yes [id number] .5mg Inhale 2.5 mL every 6 (six) hours as needed for Wheezing or Shortness of Breath. [facility] fluticasone propionate (FLOVENT HFA) 110 mcg/actuati on inhaler 2021-06 00:00: 00 Yes [id number] 2{puff} Inhale 2 Puffs every 12 (twelve) hours. [facility] albuterol 2.5 mg/0.5 mL nebulizer solution 2021-06 00:00: 00 Yes [id number] 2.5mg Inhale 0.5 mL every 6 (six) hours as needed for Wheezing. [facility] lidocaine 1.8 % [facility]Md 2021-06 00:00: 00 Yes [id number] 1{patch } Apply 1 Patch to area(s) daily. [facility] hydroCHLORO thiazide 50 mg tablet 2021-06 00:00: 00 Yes [id number] take one pill PO Daily [facility] losartan 100 mg tablet 2021-06 00:00: 00 Yes [id number] 100mg Take 1 tablet by mouth in the morning. [facility] furosemide 20 mg tablet 2021-06 00:00: 00 Yes [id number] 20mg Take 1 tablet by mouth in the morning. [facility] apixaban (ELIQUIS) 2.5 mg tablet 2021-06 00:00: 00 Yes 1358 2.5mg Take 1 tablet by mouth in the morning and 1 tablet in the evening. Indication s: atrial fibrillati on [facility] famotidine 20 mg tablet 2021-06 00:00: 00 Yes [id number] 20mg Take 1 tablet by mouth in the morning and 1 tablet in the evening. [facility] albuterol 2.5 mg /3 mL (0.083 %) nebulizer solution 2021-06 00:00: 00 Yes [id number] 2.5mg Inhale 3 mL every 6 (six) hours as needed for Wheezing or Shortness of Breath. [facility] ipratropium 0.02 % nebulizer solution 2021-06 00:00: 00 Yes [id number] .5mg Inhale 2.5 mL every 6 (six) hours as needed for Wheezing or Shortness of Breath. [facility] fluticasone propionate (FLOVENT HFA) 110 mcg/actuati on inhaler 2021-06 00:00: 00 Yes [id number] 2{puff} Inhale 2 Puffs every 12 (twelve) hours. [facility] albuterol 2.5 mg/0.5 mL nebulizer solution 2021-06 00:00: 00 Yes [id number] 2.5mg Inhale 0.5 mL every 6 (six) hours as needed for Wheezing. [facility] lidocaine 1.8 % PtMd 2021-06 00:00: 00 Yes [id number] 1{patch } Apply 1 Patch to area(s) daily. [facility] hydroCHLORO thiazide 50 mg tablet 2021-06 00:00: 00 Yes [id number] take one pill PO Daily [facility] losartan 100 mg tablet 2021-06 00:00: 00 Yes [id number] 100mg Take 1 tablet by mouth in the morning. [facility] furosemide 20 mg tablet 2021-06 00:00: 00 Yes [id number] 20mg Take 1 tablet by mouth in the morning. [facility] apixaban (ELIQUIS) 2.5 mg tablet 2021-06 00:00: 00 Yes 1358 2.5mg Take 1 tablet by mouth in the morning and 1 tablet in the evening. Indication s: atrial fibrillati on [facility] famotidine 20 mg tablet 2021-06 00:00: 00 Yes [id number] 20mg Take 1 tablet by mouth in the morning and 1 tablet in the evening. [facility] albuterol 2.5 mg /3 mL (0.083 %) nebulizer solution 2021-06 00:00: 00 Yes [id number] 2.5mg Inhale 3 mL every 6 (six) hours as needed for Wheezing or Shortness of Breath. [facility] ipratropium 0.02 % nebulizer solution 2021-06 00:00: 00 Yes [id number] .5mg Inhale 2.5 mL every 6 (six) hours as needed for Wheezing or Shortness of Breath. [facility] fluticasone propionate (FLOVENT HFA) 110 mcg/actuati on inhaler 2021-06 00:00: 00 Yes [id number] 2{puff} Inhale 2 Puffs every 12 (twelve) hours. [facility] albuterol 2.5 mg/0.5 mL nebulizer solution 2021-06 00:00: 00 Yes [id number] 2.5mg Inhale 0.5 mL every 6 (six) hours as needed for Wheezing. [facility] lidocaine 1.8 % PtMd 2021-06 00:00: 00 Yes [id number] 1{patch } Apply 1 Patch to area(s) daily. [facility] hydroCHLORO thiazide 50 mg tablet 2021-06 00:00: 00 Yes [id number] take one pill PO Daily [facility] losartan 100 mg tablet 2021-06 00:00: 00 Yes [id number] 100mg Take 1 tablet by mouth in the morning. [facility] furosemide 20 mg tablet 2021-06 00:00: 00 Yes [id number] 20mg Take 1 tablet by mouth in the morning. [facility] apixaban (ELIQUIS) 2.5 mg tablet 2021-06 00:00: 00 Yes 1358 2.5mg Take 1 tablet by mouth in the morning and 1 tablet in the evening. Indication s: atrial fibrillati on [facility] famotidine 20 mg tablet 2021-06 00:00: 00 Yes [id number] 20mg Take 1 tablet by mouth in the morning and 1 tablet in the evening. [facility] albuterol 2.5 mg /3 mL (0.083 %) nebulizer solution 2021-06 00:00: 00 Yes [id number] 2.5mg Inhale 3 mL every 6 (six) hours as needed for Wheezing or Shortness of Breath. [facility] ipratropium 0.02 % nebulizer solution 2021-06 00:00: 00 Yes [id number] .5mg Inhale 2.5 mL every 6 (six) hours as needed for Wheezing or Shortness of Breath. [facility] fluticasone propionate (FLOVENT HFA) 110 mcg/actuati on inhaler 2021-06 00:00: 00 Yes [id number] 2{puff} Inhale 2 Puffs every 12 (twelve) hours. [facility] albuterol 2.5 mg/0.5 mL nebulizer solution 2021-06 00:00: 00 Yes [id number] 2.5mg Inhale 0.5 mL every 6 (six) hours as needed for Wheezing. [facility] lidocaine 1.8 % PtMd 2021-06 00:00: 00 Yes [id number] 1{patch } Apply 1 Patch to area(s) daily. [facility] hydroCHLORO thiazide 50 mg tablet 2021-06 00:00: 00 Yes [id number] take one pill PO Daily [facility] losartan 100 mg tablet 2021-06 00:00: 00 Yes [id number] 100mg Take 1 tablet by mouth in the morning. [facility] furosemide 20 mg tablet 2021-06 00:00: 00 Yes [id number] 20mg Take 1 tablet by mouth in the morning. [facility] apixaban (ELIQUIS) 2.5 mg tablet 2021-06 00:00: 00 Yes [id number] 2.5mg Take 1 tablet by mouth in the morning and 1 tablet in the evening. Indication s: atrial fibrillati on [facility] famotidine 20 mg tablet 2021-06 00:00: 00 Yes [id number] 20mg Take 1 tablet by mouth in the morning and 1 tablet in the evening. [facility] albuterol 2.5 mg /3 mL (0.083 %) nebulizer solution 2021-06 00:00: 00 Yes [id number] 2.5mg Inhale 3 mL every 6 (six) hours as needed for Wheezing or Shortness of Breath. [facility] ipratropium 0.02 % nebulizer solution 2021-06 00:00: 00 Yes [id number] .5mg Inhale 2.5 mL every 6 (six) hours as needed for Wheezing or Shortness of Breath. [facility] fluticasone propionate (FLOVENT HFA) 110 mcg/actuati on inhaler 2021-06 00:00: 00 Yes [id number] 2{puff} Inhale 2 Puffs every 12 (twelve) hours. [facility] albuterol 2.5 mg/0.5 mL nebulizer solution 2021-06 00:00: 00 Yes [id number] 2.5mg Inhale 0.5 mL every 6 (six) hours as needed for Wheezing. [facility] lidocaine 1.8 % PtMd 2021-06 00:00: 00 Yes [id number] 1{patch } Apply 1 Patch to area(s) daily. [facility] hydroCHLORO thiazide 50 mg tablet 2021-06 00:00: 00 Yes [id number] take one pill PO Daily [facility] losartan 100 mg tablet 2021-06 00:00: 00 Yes [id number] 100mg Take 1 tablet by mouth in the morning. [facility] furosemide 20 mg tablet 2021-06 00:00: 00 Yes [id number] 20mg Take 1 tablet by mouth in the morning. [facility] apixaban (ELIQUIS) 2.5 mg tablet 2021-06 00:00: 00 Yes [id number] 2.5mg Take 1 tablet by mouth in the morning and 1 tablet in the evening. Indication s: atrial fibrillati on [facility] famotidine 20 mg tablet 2021-06 00:00: 00 Yes [id number] 20mg Take 1 tablet by mouth in the morning and 1 tablet in the evening. [facility] albuterol 2.5 mg /3 mL (0.083 %) nebulizer solution 2021-06 00:00: 00 Yes [id number] 2.5mg Inhale 3 mL every 6 (six) hours as needed for Wheezing or Shortness of Breath. [facility] ipratropium 0.02 % nebulizer solution 2021-06 00:00: 00 Yes [id number] .5mg Inhale 2.5 mL every 6 (six) hours as needed for Wheezing or Shortness of Breath. [facility] fluticasone propionate (FLOVENT HFA) 110 mcg/actuati on inhaler 2021-06 00:00: 00 Yes [id number] 2{puff} Inhale 2 Puffs every 12 (twelve) hours. [facility] albuterol 2.5 mg/0.5 mL nebulizer solution 2021-06 00:00: 00 Yes [id number] 2.5mg Inhale 0.5 mL every 6 (six) hours as needed for Wheezing. [facility] lidocaine 1.8 % PtMd 2021-06 00:00: 00 Yes [id number] 1{patch } Apply 1 Patch to area(s) daily. [facility] hydroCHLORO thiazide 50 mg tablet 2021-06 00:00: 00 Yes [id number] take one pill PO Daily [facility] losartan 100 mg tablet 2021-06 00:00: 00 Yes [id number] 100mg Take 1 tablet by mouth in the morning. [facility] furosemide 20 mg tablet 2021-06 00:00: 00 Yes [id number] 20mg Take 1 tablet by mouth in the morning. [facility] apixaban (ELIQUIS) 2.5 mg tablet 2021-06 00:00: 00 Yes [id number] 2.5mg Take 1 tablet by mouth in the morning and 1 tablet in the evening. Indication s: atrial fibrillati on [facility] famotidine 20 mg tablet 2021-06 00:00: 00 Yes [id number] 20mg Take 1 tablet by mouth in the morning and 1 tablet in the evening. [facility] albuterol 2.5 mg /3 mL (0.083 %) nebulizer solution 2021-06 00:00: 00 Yes [id number] 2.5mg Inhale 3 mL every 6 (six) hours as needed for Wheezing or Shortness of Breath. [facility] ipratropium 0.02 % nebulizer solution 2021-06 00:00: 00 Yes [id number] .5mg Inhale 2.5 mL every 6 (six) hours as needed for Wheezing or Shortness of Breath. [facility] fluticasone propionate (FLOVENT HFA) 110 mcg/actuati on inhaler 2021-06 00:00: 00 Yes [id number] 2{puff} Inhale 2 Puffs every 12 (twelve) hours. [facility] albuterol 2.5 mg/0.5 mL nebulizer solution 2021-06 00:00: 00 Yes [id number] 2.5mg Inhale 0.5 mL every 6 (six) hours as needed for Wheezing. [facility] lidocaine 1.8 % PtMd 2021-06 00:00: 00 Yes [id number] 1{patch } Apply 1 Patch to area(s) daily. [facility] hydroCHLORO thiazide 50 mg tablet 2021-06 00:00: 00 Yes [id number] take one pill PO Daily [facility] losartan 100 mg tablet 2021-06 00:00: 00 Yes [id number] 100mg Take 1 tablet by mouth in the morning. [facility] furosemide 20 mg tablet 2021-06 00:00: 00 Yes [id number] 20mg Take 1 tablet by mouth in the morning. [facility] apixaban (ELIQUIS) 2.5 mg tablet 2021-06 00:00: 00 Yes [id number] 2.5mg Take 1 tablet by mouth in the morning and 1 tablet in the evening. Indication s: atrial fibrillati on [facility] famotidine 20 mg tablet 2021-06 00:00: 00 Yes [id number] 20mg Take 1 tablet by mouth in the morning and 1 tablet in the evening. [facility] albuterol 2.5 mg /3 mL (0.083 %) nebulizer solution 2021-06 00:00: 00 Yes [id number] 2.5mg Inhale 3 mL every 6 (six) hours as needed for Wheezing or Shortness of Breath. [facility] ipratropium 0.02 % nebulizer solution 2021-06 00:00: 00 Yes [id number] .5mg Inhale 2.5 mL every 6 (six) hours as needed for Wheezing or Shortness of Breath. [facility] fluticasone propionate (FLOVENT HFA) 110 mcg/actuati on inhaler 2021-06 00:00: 00 Yes [id number] 2{puff} Inhale 2 Puffs every 12 (twelve) hours. [facility] albuterol 2.5 mg/0.5 mL nebulizer solution 2021-06 00:00: 00 Yes [id number] 2.5mg Inhale 0.5 mL every 6 (six) hours as needed for Wheezing. [facility] lidocaine 1.8 % PtMd 2021-06 00:00: 00 Yes [id number] 1{patch } Apply 1 Patch to area(s) daily. [facility] hydroCHLORO thiazide 50 mg tablet 2021-06 00:00: 00 Yes [id number] take one pill PO Daily [facility] losartan 100 mg tablet 2021-06 00:00: 00 Yes [id number] 100mg Take 1 tablet by mouth in the morning. [facility] furosemide 20 mg tablet 2021-06 00:00: 00 Yes [id number] 20mg Take 1 tablet by mouth in the morning. [facility] apixaban (ELIQUIS) 2.5 mg tablet 2021-06 00:00: 00 Yes [id number] 2.5mg Take 1 tablet by mouth in the morning and 1 tablet in the evening. Indication s: atrial fibrillati on [facility] famotidine 20 mg tablet 2021-06 00:00: 00 Yes [id number] 20mg Take 1 tablet by mouth in the morning and 1 tablet in the evening. [facility] albuterol 2.5 mg /3 mL (0.083 %) nebulizer solution 2021-06 00:00: 00 Yes [id number] 2.5mg Inhale 3 mL every 6 (six) hours as needed for Wheezing or Shortness of Breath. [facility] ipratropium 0.02 % nebulizer solution 2021-06 00:00: 00 Yes [id number] .5mg Inhale 2.5 mL every 6 (six) hours as needed for Wheezing or Shortness of Breath. [facility] fluticasone propionate (FLOVENT HFA) 110 mcg/actuati on inhaler 2021-06 00:00: 00 Yes [id number] 2{puff} Inhale 2 Puffs every 12 (twelve) hours. [facility] albuterol 2.5 mg/0.5 mL nebulizer solution 2021-06 00:00: 00 Yes [id number] 2.5mg Inhale 0.5 mL every 6 (six) hours as needed for Wheezing. [facility] lidocaine 1.8 % PtMd 2021-06 00:00: 00 Yes [id number] 1{patch } Apply 1 Patch to area(s) daily. [facility] hydroCHLORO thiazide 50 mg tablet 2021-06 00:00: 00 Yes [id number] take one pill PO Daily [facility] furosemide 20 mg tablet 2021-06 00:00: 00 Yes [id number] 20mg Take 1 tablet by mouth in the morning. [facility] apixaban (ELIQUIS) 2.5 mg tablet 2021-06 00:00: 00 Yes [id number] 2.5mg Take 1 tablet by mouth in the morning and 1 tablet in the evening. Indication s: atrial fibrillati on [facility] famotidine 20 mg tablet 2021-06 00:00: 00 Yes [id number] 20mg Take 1 tablet by mouth in the morning and 1 tablet in the evening. [facility] albuterol 2.5 mg /3 mL (0.083 %) nebulizer solution 2021-06 00:00: 00 Yes [id number] 2.5mg Inhale 3 mL every 6 (six) hours as needed for Wheezing or Shortness of Breath. [facility] ipratropium 0.02 % nebulizer solution 2021-06 00:00: 00 Yes [id number] .5mg Inhale 2.5 mL every 6 (six) hours as needed for Wheezing or Shortness of Breath. [facility] fluticasone propionate (FLOVENT HFA) 110 mcg/actuati on inhaler 2021-06 00:00: 00 Yes [id number] 2{puff} Inhale 2 Puffs every 12 (twelve) hours. [facility] albuterol 2.5 mg/0.5 mL nebulizer solution 2021-06 00:00: 00 Yes [id number] 2.5mg Inhale 0.5 mL every 6 (six) hours as needed for Wheezing. [facility] lidocaine 1.8 % PtMd 2021-06 00:00: 00 Yes [id number] 1{patch } Apply 1 Patch to area(s) daily. [facility] furosemide 20 mg tablet 2021-06 00:00: 00 Yes [id number] 20mg Take 1 tablet by mouth in the morning. [facility] apixaban (ELIQUIS) 2.5 mg tablet 2021-06 00:00: 00 Yes [id number] 2.5mg Take 1 tablet by mouth in the morning and 1 tablet in the evening. Indication s: atrial fibrillati on [facility] famotidine 20 mg tablet 2021-06 00:00: 00 Yes [id number] 20mg Take 1 tablet by mouth in the morning and 1 tablet in the evening. [facility] albuterol 2.5 mg /3 mL (0.083 %) nebulizer solution 2021-06 00:00: 00 Yes [id number] 2.5mg Inhale 3 mL every 6 (six) hours as needed for Wheezing or Shortness of Breath. [facility] ipratropium 0.02 % nebulizer solution 2021-06 00:00: 00 Yes [id number] .5mg Inhale 2.5 mL every 6 (six) hours as needed for Wheezing or Shortness of Breath. [facility] fluticasone propionate (FLOVENT HFA) 110 mcg/actuati on inhaler 2021-06 00:00: 00 Yes [id number] 2{puff} Inhale 2 Puffs every 12 (twelve) hours. [facility] albuterol 2.5 mg/0.5 mL nebulizer solution 2021-06 00:00: 00 Yes [id number] 2.5mg Inhale 0.5 mL every 6 (six) hours as needed for Wheezing. [facility] lidocaine 1.8 % PtMd 2021-06 00:00: 00 Yes [id number] 1{patch } Apply 1 Patch to area(s) daily. [facility] hydroCHLORO thiazide 50 mg tablet 2021-06 00:00: 00 Yes [id number] take one pill PO Daily [facility] famotidine 20 mg tablet 2021-06 00:00: 00 Yes [id number] 20mg Take 1 tablet by mouth in the morning and 1 tablet in the evening. [facility] albuterol 2.5 mg /3 mL (0.083 %) nebulizer solution 2021-06 00:00: 00 Yes [id number] 2.5mg Inhale 3 mL every 6 (six) hours as needed for Wheezing or Shortness of Breath. [facility] ipratropium 0.02 % nebulizer solution 2021-06 00:00: 00 Yes [id number] .5mg Inhale 2.5 mL every 6 (six) hours as needed for Wheezing or Shortness of Breath. [facility] fluticasone propionate (FLOVENT HFA) 110 mcg/actuati on inhaler 2021-06 00:00: 00 Yes [id number] 2{puff} Inhale 2 Puffs every 12 (twelve) hours. [facility] losartan 100 mg tablet 2021-06 00:00: 00 Yes [id number] 100mg Take 1 tablet by mouth in the morning. [facility] albuterol 2.5 mg/0.5 mL nebulizer solution 2021-06 00:00: 00 Yes [id number] 2.5mg Inhale 0.5 mL every 6 (six) hours as needed for Wheezing. [facility] lidocaine 1.8 % PtMd 2021-06 00:00: 00 Yes [id number] 1{patch } Apply 1 Patch to area(s) daily. [facility] furosemide 20 mg tablet 2021-06 00:00: 00 Yes [id number] 20mg Take 1 tablet by mouth in the morning. [facility] apixaban (ELIQUIS) 2.5 mg tablet 2021-06 00:00: 00 Yes [id number] 2.5mg Take 1 tablet by mouth in the morning and 1 tablet in the evening. Indication s: atrial fibrillati on [facility] famotidine 20 mg tablet 2021-06 00:00: 00 Yes [id number] 20mg Take 1 tablet by mouth in the morning and 1 tablet in the evening. [facility] famotidine 20 mg tablet 2021-06 00:00: 00 Yes [id number] 20mg Take 1 tablet by mouth in the morning and 1 tablet in the evening. [facility] albuterol 2.5 mg /3 mL (0.083 %) nebulizer solution 2021-06 00:00: 00 Yes [id number] 2.5mg Inhale 3 mL every 6 (six) hours as needed for Wheezing or Shortness of Breath. [facility] metoprolol succinate XL (TOPROL XL) 100 mg 24 hr tablet 2021-06 00:00: 00 Yes [id number] 100mg Take 1 tablet by mouth in the morning. [facility] ipratropium 0.02 % nebulizer solution 2021-06 00:00: 00 Yes [id number] .5mg Inhale 2.5 mL every 6 (six) hours as needed for Wheezing or Shortness of Breath. [facility] fluticasone propionate (FLOVENT HFA) 110 mcg/actuati on inhaler 2021-06 00:00: 00 Yes [id number] 2{puff} Inhale 2 Puffs every 12 (twelve) hours. [facility] albuterol 2.5 mg/0.5 mL nebulizer solution 2021-06 00:00: 00 Yes [id number] 2.5mg Inhale 0.5 mL every 6 (six) hours as needed for Wheezing. [facility] lidocaine 1.8 % PtMd 2021-06 00:00: 00 Yes [id number] 1{patch } Apply 1 Patch to area(s) daily. [facility] albuterol 2.5 mg /3 mL (0.083 %) nebulizer solution 2021-06 00:00: 00 Yes [id number] 2.5mg Inhale 3 mL every 6 (six) hours as needed for Wheezing or Shortness of Breath. [facility] ipratropium 0.02 % nebulizer solution 2021-06 00:00: 00 Yes [id number] .5mg Inhale 2.5 mL every 6 (six) hours as needed for Wheezing or Shortness of Breath. [facility] fluticasone propionate (FLOVENT HFA) 110 mcg/actuati on inhaler 2021-06 00:00: 00 Yes [id number] 2{puff} Inhale 2 Puffs every 12 (twelve) hours. [facility] albuterol 2.5 mg/0.5 mL nebulizer solution 2021-06 00:00: 00 Yes [id number] 2.5mg Inhale 0.5 mL every 6 (six) hours as needed for Wheezing. [facility] famotidine 20 mg tablet 2021-06 00:00: 00 Yes [id number] 20mg Take 1 tablet by mouth in the morning and 1 tablet in the evening. [facility] albuterol 2.5 mg /3 mL (0.083 %) nebulizer solution 2021-06 00:00: 00 Yes [id number] 2.5mg Inhale 3 mL every 6 (six) hours as needed for Wheezing or Shortness of Breath. [facility] ipratropium 0.02 % nebulizer solution 2021-06 00:00: 00 Yes [id number] .5mg Inhale 2.5 mL every 6 (six) hours as needed for Wheezing or Shortness of Breath. [facility] fluticasone propionate (FLOVENT HFA) 110 mcg/actuati on inhaler 2021-06 00:00: 00 Yes [id number] 2{puff} Inhale 2 Puffs every 12 (twelve) hours. [facility] albuterol 2.5 mg/0.5 mL nebulizer solution 2021-06 00:00: 00 Yes [id number] 2.5mg Inhale 0.5 mL every 6 (six) hours as needed for Wheezing. [facility] lidocaine 1.8 % PtMd 2021-06 00:00: 00 Yes [id number] 1{patch } Apply 1 Patch to area(s) daily. [facility] amitriptyli ne 10 mg tablet 2021-06 00:00: 00 Yes [id number] 5mg Take 0.5 tablets by mouth at bedtime. [facility] traMADoL-ac etaminophen 37.5-325 mg per tablet 2021-06 00:00: 00 Yes [id number] 1{tbl} Take 1 tablet by mouth every 6 (six) hours as needed for Pain. Indication s: chronic pain [facility] lidocaine 1.8 % PtMd 2021-06 00:00: 00 Yes [id number] 1{patch } Apply 1 Patch to area(s) daily. [facility] famotidine 20 mg tablet 2021-06 00:00: 00 Yes [id number] 20mg Take 1 tablet by mouth in the morning and 1 tablet in the evening. [facility] albuterol 2.5 mg /3 mL (0.083 %) nebulizer solution 2021-06 00:00: 00 Yes [id number] 2.5mg Inhale 3 mL every 6 (six) hours as needed for Wheezing or Shortness of Breath. [facility] ipratropium 0.02 % nebulizer solution 2021-06 00:00: 00 Yes [id number] .5mg Inhale 2.5 mL every 6 (six) hours as needed for Wheezing or Shortness of Breath. [facility] fluticasone propionate (FLOVENT HFA) 110 mcg/actuati on inhaler 2021-06 00:00: 00 Yes [id number] 2{puff} Inhale 2 Puffs every 12 (twelve) hours. [facility] albuterol 2.5 mg/0.5 mL nebulizer solution 2021-06 00:00: 00 Yes [id number] 2.5mg Inhale 0.5 mL every 6 (six) hours as needed for Wheezing. [facility] lidocaine 1.8 % PtMd 2021-06 00:00: 00 Yes [id number] 1{patch } Apply 1 Patch to area(s) daily. [facility] famotidine 20 mg tablet 2021-06 00:00: 00 Yes [id number] 20mg Take 1 tablet by mouth in the morning and 1 tablet in the evening. [facility] albuterol 2.5 mg /3 mL (0.083 %) nebulizer solution 2021-06 00:00: 00 Yes [id number] 2.5mg Inhale 3 mL every 6 (six) hours as needed for Wheezing or Shortness of Breath. [facility] ipratropium 0.02 % nebulizer solution 2021-06 00:00: 00 Yes [id number] .5mg Inhale 2.5 mL every 6 (six) hours as needed for Wheezing or Shortness of Breath. [facility] fluticasone propionate (FLOVENT HFA) 110 mcg/actuati on inhaler 2021-06 00:00: 00 Yes [id number] 2{puff} Inhale 2 Puffs every 12 (twelve) hours. [facility] albuterol 2.5 mg/0.5 mL nebulizer solution 2021-06 00:00: 00 Yes [id number] 2.5mg Inhale 0.5 mL every 6 (six) hours as needed for Wheezing. [facility] lidocaine 1.8 % PtMd 2021-06 00:00: 00 Yes [id number] 1{patch } Apply 1 Patch to area(s) daily. [facility] hydroCHLORO thiazide 50 mg tablet 2021-06 00:00: 00 Yes [id number] take one pill PO Daily [facility] losartan 100 mg tablet 2021-06 00:00: 00 Yes [id number] 100mg Take 1 tablet by mouth in the morning. [facility] furosemide 20 mg tablet 2021-06 00:00: 00 Yes [id number] 20mg Take 1 tablet by mouth in the morning. [facility] famotidine 20 mg tablet 2021-06 00:00: 00 Yes [id number] 20mg Take 1 tablet by mouth in the morning and 1 tablet in the evening. [facility] albuterol 2.5 mg /3 mL (0.083 %) nebulizer solution 2021-06 00:00: 00 Yes [id number] 2.5mg Inhale 3 mL every 6 (six) hours as needed for Wheezing or Shortness of Breath. [facility] ipratropium 0.02 % nebulizer solution 2021-06 00:00: 00 Yes [id number] .5mg Inhale 2.5 mL every 6 (six) hours as needed for Wheezing or Shortness of Breath. [facility] fluticasone propionate (FLOVENT HFA) 110 mcg/actuati on inhaler 2021-06 00:00: 00 Yes [id number] 2{puff} Inhale 2 Puffs every 12 (twelve) hours. [facility] albuterol 2.5 mg/0.5 mL nebulizer solution 2021-06 00:00: 00 Yes [id number] 2.5mg Inhale 0.5 mL every 6 (six) hours as needed for Wheezing. [facility] lidocaine 1.8 % PtMd 2021-06 00:00: 00 Yes [id number] 1{patch } Apply 1 Patch to area(s) daily. [facility] apixaban (ELIQUIS) 2.5 mg tablet 2021-06 00:00: 00 Yes [id number] 2.5mg Take 1 tablet by mouth in the morning and 1 tablet in the evening. Indication s: atrial fibrillati on [facility] famotidine 20 mg tablet 2021-06 00:00: 00 Yes [id number] 20mg Take 1 tablet by mouth in the morning and 1 tablet in the evening. [facility] metoprolol succinate XL (TOPROL XL) 100 mg 24 hr tablet 2021-06 00:00: 00 Yes [id number] 100mg Take 1 tablet by mouth in the morning. [facility] famotidine 20 mg tablet 2021-06 00:00: 00 Yes [id number] 20mg Take 1 tablet by mouth in the morning and 1 tablet in the evening. [facility] albuterol 2.5 mg /3 mL (0.083 %) nebulizer solution 2021-06 00:00: 00 Yes [id number] 2.5mg Inhale 3 mL every 6 (six) hours as needed for Wheezing or Shortness of Breath. [facility] ipratropium 0.02 % nebulizer solution 2021-06 00:00: 00 Yes [id number] .5mg Inhale 2.5 mL every 6 (six) hours as needed for Wheezing or Shortness of Breath. [facility] fluticasone propionate (FLOVENT HFA) 110 mcg/actuati on inhaler 2021-06 00:00: 00 Yes [id number] 2{puff} Inhale 2 Puffs every 12 (twelve) hours. [facility] albuterol 2.5 mg/0.5 mL nebulizer solution 2021-06 00:00: 00 Yes [id number] 2.5mg Inhale 0.5 mL every 6 (six) hours as needed for Wheezing. [facility] lidocaine 1.8 % PtMd 2021-06 00:00: 00 Yes [id number] 1{patch } Apply 1 Patch to area(s) daily. [facility] albuterol 2.5 mg /3 mL (0.083 %) nebulizer solution 2021-06 00:00: 00 Yes [id number] 2.5mg Inhale 3 mL every 6 (six) hours as needed for Wheezing or Shortness of Breath. [facility] albuterol 2.5 mg /3 mL (0.083 %) nebulizer solution 2021-06 00:00: 00 05-09 00:00 :00 No [id number] 2.5mg Inhale 3 mL every 6 (six) hours as needed for Wheezing or Shortness of Breath. [facility] ipratropium 0.02 % nebulizer solution 2021-06 00:00: 00 05-09 00:00 :00 No [id number] .5mg Inhale 2.5 mL every 6 (six) hours as needed for Wheezing or Shortness of Breath. [facility] fluticasone propionate (FLOVENT HFA) 110 mcg/actuati on inhaler 2021-06 00:00: 00 05-09 00:00 :00 No [id number] 2{puff} Inhale 2 Puffs every 12 (twelve) hours. [facility] albuterol 2.5 mg/0.5 mL nebulizer solution 2021-06 0-18 00:00: 00 05-09 00:00 :00 No [id number] 2.5mg Inhale 0.5 mL every 6 (six) hours as needed for Wheezing. [facility] albuterol 2.5 mg /3 mL (0.083 %) nebulizer solution 2021-06 018 00:00: 00 05-09 00:00 :00 No [id number] 2.5mg Inhale 3 mL every 6 (six) hours as needed for Wheezing or Shortness of Breath. [facility] ipratropium 0.02 % nebulizer solution 2021-06 018 00:00: 00 05-09 00:00 :00 No [id number] .5mg Inhale 2.5 mL every 6 (six) hours as needed for Wheezing or Shortness of Breath. [facility]FLOVENT HFA[facility] 110 mcg/actuati on inhaler 2021-06 0 00:00: 00 05-09 00:00 :00 No [id number] 2{puff} Inhale 2 Puffs every 12 (twelve) hours. [facility] al[facility] 2.5 mg/0.5 mL nebulizer solution 2021-06 018 00:00: 00 05-09 00:00 :00 No [id number] 2.5mg Inhale 0.5 mL every 6 (six) hours as needed for Wheezing. [facility] albuterol 2.5 mg /3 mL (0.083 %) nebulizer solution 2021-06 0-18 00:00: 00 05-09 00:00 :00 No [id number] 2.5mg Inhale 3 mL every 6 (six) hours as needed for Wheezing or Shortness of Breath. [facility] ipratropium 0.02 % nebulizer solution 2021-06 0-18 00:00: 00 05-09 00:00 :00 No [id number] .5mg Inhale 2.5 mL every 6 (six) hours as needed for Wheezing or Shortness of Breath. [facility] fluticasone propionate (FLOVENT HFA) 110 mcg/actuati on inhaler 2021-06 0-18 00:00: 00 05-09 00:00 :00 No [id number] 2{puff} Inhale 2 Puffs every 12 (twelve) hours. [facility] albuterol 2.5 mg/0.5 mL nebulizer solution 2021-06 0-18 00:00: 00 05-09 00:00 :00 No [id number] 2.5mg Inhale 0.5 mL every 6 (six) hours as needed for Wheezing. [facility] al[facility] 2.5 mg /3 mL (0.083 %) nebulizer solution 2021-06 018 00:00: 00 05-09 00:00 :00 No [id number] 2.5mg Inhale 3 mL every 6 (six) hours as needed for Wheezing or Shortness of Breath. [facility] ipratropium 0.02 % nebulizer solution 2021-06 0-18 00:00: 00 05-09 00:00 :00 No [id number] .5mg Inhale 2.5 mL every 6 (six) hours as needed for Wheezing or Shortness of Breath. [facility] fluticasone propionate (FLOVENT HFA) 110 mcg/actuati on inhaler 2021-06 018 00:00: 00 05-09 00:00 :00 No [id number] 2{puff} Inhale 2 Puffs every 12 (twelve) hours. [facility] albuterol 2.5 mg/0.5 mL nebulizer solution 2021-06 0-18 00:00: 00 05-09 00:00 :00 No [id number] 2.5mg Inhale 0.5 mL every 6 (six) hours as needed for Wheezing. [facility].5 [facility] /3 mL (0.083 %) nebulizer solution 2021-06 0-18 00:00: 00 05-09 00:00 :00 No [id number] 2.5mg Inhale 3 mL every 6 (six) hours as needed for Wheezing or Shortness of Breath. [facility] ipratropium 0.02 % nebulizer solution 2021-06 00:00: 05-09 00:00 :00 No [id number] .5mg Inhale 2.5 mL every 6 (six) hours as needed for Wheezing or Shortness of Breath. [facility] fluticasone propionate (FLOVENT HFA) 110 mcg/actuati on inhaler 2021-06 00:00: 05-09 00:00 :00 No [id number] 2{puff} Inhale 2 Puffs every 12 (twelve) hours. [facility] albuterol 2.5 mg/0.5 mL nebulizer solution 2021-06 00:00: 00 05-09 00:00 :00 No [id number] 2.5mg Inhale 0.5 mL every 6 (six) hours as needed for Wheezing. [facility] famotidine 20 mg tablet 2021-06 00:00: 00 04-08 00:00 :00 No [id number] 20mg Take 1 tablet by mouth in the morning and 1 tablet in the evening. [facility] furosemide 20 mg tablet 2021-06 00:00: 00 11-07 00:00 :00 No [id number] 20mg Take 1 tablet by mouth in the morning. [facility] apixaban (ELIQUIS) 2.5 mg tablet 2021-06 00:00: 00 11-07 00:00 :00 No [id number] 2.5mg Take 1 tablet by mouth in the morning and 1 tablet in the evening. Indication s: atrial fibrillati on [facility] furosemide 20 mg tablet 2021-06 00:00: 00 11-07 00:00 :00 No [id number] 20mg Take 1 tablet by mouth in the morning. [facility] apixaban (ELIQUIS) 2.5 mg tablet 2021-06 00:00: 00 11-07 00:00 :00 No [id number] 2.5mg Take 1 tablet by mouth in the morning and 1 tablet in the evening. Indication s: atrial fibrillati on [facility] hydroCHLORO thiazide 50 mg tablet 2021-0618 00:00: 00 11-01 00:00 :00 No [id number] take one pill PO Daily [facility] losartan 100 mg tablet 2021-0618 00:00: 00 10-26 00:00 :00 No [id number] 100mg Take 1 tablet by mouth in the morning. [facility] famotidine (Pepcid) 20 MG tablet 2021-06 00:00: 00 06-12 00:00 :00 No 1{tbl} Q.5D Take 1 tablet by mouth 2 (two) times a day, in the morning and at bedtime. [facility] ipratropium (Atrovent) 0.02 % nebulizer solution 2021-06 00:00: 00 06-12 00:00 :00 No .5mg Inhale 0.5 mg. [facility] traMADol-ac etaminophen (UltraCET) 37.5-325 MG tablet 2021-06 00:00: 00 06-12 00:00 :00 No 1{tbl} Take 1 tablet by mouth. [facility] famotidine (Pepcid) 20 MG tablet 2021-06 00:00: 00 06-12 00:00 :00 No 1{tbl} Q.5D Take 1 tablet by mouth 2 (two) times a day, in the morning and at bedtime. [facility] ipratropium (Atrovent) 0.02 % nebulizer solution 2021-06 00:00: 00 06-12 00:00 :00 No .5mg Inhale 0.5 mg. [facility] traMADol-ac etaminophen (UltraCET) 37.5-325 MG tablet 2021-06 00:00: 00 06-12 00:00 :00 No 1{tbl} Take 1 tablet by mouth. [facility] amitriptyli ne 10 mg tablet 2021-06 00:00: 00 05-09 00:00 :00 No [id number] 5mg Take 0.5 tablets by mouth at bedtime. [facility] traMADoL-ac etaminophen 37.5-325 mg per tablet 2021-06 0 00:00: 05-09 00:00 :00 No [id number] 1{tbl} Take 1 tablet by mouth every 6 (six) hours as needed for Pain. Indication s: chronic pain [facility] amitriptyli ne 10 mg tablet 2021-06 0 00:00: 05-09 00:00 :00 No [id number] 5mg Take 0.5 tablets by mouth at bedtime. [facility] traMADoL-ac etaminophen 37.5-325 mg per tablet 2021-06 00:00: 00 05-09 00:00 :00 No [id number] 1{tbl} Take 1 tablet by mouth every 6 (six) hours as needed for Pain. Indication s: chronic pain [facility] amitriptyli ne 10 mg tablet 2021-06 0 00:00: 05-09 00:00 :00 No [id number] 5mg Take 0.5 tablets by mouth at bedtime. [facility] traMADoL-ac etaminophen 37.5-325 mg per tablet 2021-06 00:00: 00 05-09 00:00 :00 No [id number] 1{tbl} Take 1 tablet by mouth every 6 (six) hours as needed for Pain. Indication s: chronic pain [facility] amitriptyli ne 10 mg tablet 2021-06 0 00:00: 00 05-09 00:00 :00 No [id number] 5mg Take 0.5 tablets by mouth at bedtime. [facility] traMADoL-ac etaminophen 37.5-325 mg per tablet 2021-06 0 00:00: 00 05-09 00:00 :00 No [id number] 1{tbl} Take 1 tablet by mouth every 6 (six) hours as needed for Pain. Indication s: chronic pain [facility] amitriptyli ne 10 mg tablet 2021-06 00:00: 00 05-09 00:00 :00 No [id number] 5mg Take 0.5 tablets by mouth at bedtime. [facility] traMADoL-ac etaminophen 37.5-325 mg per tablet 2021-06 00:00: 00 05-09 00:00 :00 No [id number] 1{tbl} Take 1 tablet by mouth every 6 (six) hours as needed for Pain. Indication s: chronic pain [facility] metoprolol succinate XL (TOPROL XL) 100 mg 24 hr tablet 2021-06 00:00: 00 04-11 00:00 :00 No [id number] 100mg Take 1 tablet by mouth in the morning. [facility] ELIQUIS 2.5 mg tablet 2021-06 0-03 00:00: 00 03-27 00:00 :00 No [facility] losartan 100 mg tablet 2021-06 0-03 00:00: 00 03-27 00:00 :00 No [facility] ELIQUIS 2.5 mg tablet 2021-06 0-03 00:00: 00 03-27 00:00 :00 No [facility] losartan 100 mg tablet 2021-06 0-03 00:00: 00 03-27 00:00 :00 No [facility] busPIRone 5 mg tablet 8 00:00: 00 Yes [facility] busPIRone 5 mg tablet 8 00:00: 00 Yes [facility] busPIRone 5 mg tablet 8 00:00: 00 Yes [facility] busPIRone 5 mg tablet 8 00:00: 00 Yes [facility] busPIRone 5 mg tablet 8 00:00: 00 Yes [facility] busPIRone 5 mg tablet 8- 00:00: 00 Yes [facility] busPIRone 5 mg tablet 02-02 00:00: 00 Yes [facility] busPIRone (Buspar) 5 MG tablet 0 02-02 00:00: 00 06-12 00:00 :00 No [facility] busPIRone (Buspar) 5 MG tablet 0 02-02 00:00: 00 06-12 00:00 :00 No [facility] busPIRone 5 mg tablet 02-02 00:00: 00 05-09 00:00 :00 No [facility] busPIRone 5 mg tablet 0 02-02 00:00: 00 05-09 00:00 :00 No [facility] busPIRone 5 mg tablet 02-02 00:00: 00 05-09 00:00 :00 No [facility] busPIRone 5 mg tablet 0 02-02 00:00: 00 05-09 00:00 :00 No [facility] busPIRone 5 mg tablet 02-02 00:00: 00 05-09 00:00 :00 No [facility] levocetiriz ine (Xyzal) 5 MG tablet 02-01 00:00: 00 Yes [facility] levocetiriz ine (Xyzal) 5 MG tablet 0 02-01 00:00: 00 Yes [facility] levocetiriz ine 5 mg tablet 0 02-01 00:00: 00 Yes [facility] levocetiriz ine 5 mg tablet 0 02-01 00:00: 00 Yes [facility] levocetiriz ine 5 mg tablet 0 02-01 00:00: 00 Yes [facility] levocetiriz ine 5 mg tablet 0 02-01 00:00: 00 Yes [facility] levocetiriz ine 5 mg tablet 0 02-01 00:00: 00 Yes [facility] levocetiriz ine 5 mg tablet 0 02-01 00:00: 00 Yes [facility] levocetiriz ine 5 mg tablet 02-01 00:00: 00 Yes [facility] levocetiriz ine 5 mg tablet 02-01 00:00: 00 05-09 00:00 :00 No [facility] levocetiriz ine 5 mg tablet 02-01 00:00: 00 05-09 00:00 :00 No [facility] levocetiriz ine 5 mg tablet 02-01 00:00: 00 05-09 00:00 :00 No [facility] levocetiriz ine 5 mg tablet 02-01 00:00: 00 05-09 00:00 :00 No [facility] levocetiriz ine 5 mg tablet 02-01 00:00: 00 05-09 00:00 :00 No [facility] fluticasone (Flonase) 50 MCG/ACT nasal spray 10-26 00:00: 00 Yes [facility] fluticasone (Flonase) 50 MCG/ACT nasal spray 10-26 00:00: 00 Yes [facility] Apixaban Base (ELIQUIS 2.5 MG TAB) 2.5 MG TAB Apixaban Base (ELIQUIS 2.5 MG TAB) 2.5 MG TAB 14 15:31: 00 Yes 2.5 TWICE A DAY (899; 2099) [facility] METOPROLOL TARTRATE (METOPROLOL 50 MG TAB) 50 MG TAB METOPROLOL TARTRATE (METOPROLOL 50 MG TAB) 50 MG TAB 314 15:31: 00 Yes 150 TWICE A DAY (899; 2099) [facility] NIASPAN 1,000 MG ORAL TBSR 2006-06 00:00: 00 03-27 00:00 :00 No take 1 and 1/2 pills daily [facility] NIASPAN 1,000 MG ORAL TBSR 2006-06 00:00: 00 03-27 00:00 :00 No take 1 and 1/2 pills daily [facility] METOPROLOL SUCCINATE 50 MG ORAL TB24 06-14 00:00: 00 03-27 00:00 :00 No [id number] 11/2 tab by mouth every day [facility] HYDROCHLORO THIAZIDE 25 MG ORAL TAB 06-14 00:00: 00 03-27 00:00 :00 No [id number] take one pill PO Daily [facility] PRAVASTATIN 20 MG ORAL TAB 06-14 00:00: 00 03-27 00:00 :00 No [id number] 1 Tab Oral DAILY [facility] HYDROCODONE -ACETAMINOP HEN 5-325 MG ORAL TAB 06-14 00:00: 00 03-27 00:00 :00 No [id number] 1-2 Tab Oral Q4HPRN [facility] TEMAZEPAM 15 MG ORAL CAP 06-14 00:00: 00 03-27 00:00 :00 No [id number] 1 Cap Oral QHSPRN [facility] CARISOPRODO L 350 MG ORAL TAB 06-14 00:00: 00 03-27 00:00 :00 No [id number] 1 Tab Oral BID [facility] METOPROLOL SUCCINATE 50 MG ORAL TB24 06-14 00:00: 00 03-27 00:00 :00 No [id number] 11/2 tab by mouth every day [facility] HYDROCHLORO THIAZIDE 25 MG ORAL TAB 06-14 00:00: 00 03-27 00:00 :00 No [id number] take one pill PO Daily [facility] PRAVASTATIN 20 MG ORAL TAB 06-14 00:00: 00 03-27 00:00 :00 No [id number] 1 Tab Oral DAILY [facility] HYDROCODONE -ACETAMINOP HEN 5-325 MG ORAL TAB 06-14 00:00: 00 03-27 00:00 :00 No [id number] 1-2 Tab Oral Q4HPRN [facility] TEMAZEPAM 15 MG ORAL CAP 06-14 00:00: 00 03-27 00:00 :00 No [id number] 1 Cap Oral QHSPRN [facility] CARISOPRODO L 350 MG ORAL TAB 06-14 00:00: 00 03-27 00:00 :00 No [id number] 1 Tab Oral BID [facility] BACTRIM DS 160-800 MG ORAL TAB 2005-06 00:00: 00 03-27 00:00 :00 No [id number] 1 by mouth two times a day [facility] BACTRIM DS 160-800 MG ORAL TAB 2005-06 00:00: 00 03-27 00:00 :00 No [id number] 1 by mouth two times a day [facility] BACTRIM DS 160-800 MG ORAL TAB 2005-06 00:00: 00 03-27 00:00 :00 No [id number] 1 tab PO q 12hrs [facility] BACTRIM DS 160-800 MG ORAL TAB 2005-06 00:00: 00 03-27 00:00 :00 No [id number] 1 tab PO q 12hrs [facility] METOPROLOL TARTRATE 50 MG ORAL TAB 2005-06 00:00: 00 03-27 00:00 :00 No take 1 pill PO Q12h [facility] FAMOTIDINE 20 MG ORAL TAB 2005-06 00:00: 00 03-27 00:00 :00 No 1 Tab Oral [id number] [facility] ASPIRIN, BUFFERED 325 MG ORAL TAB 2005-06 00:00: 00 03-27 00:00 :00 No 1 Tab Oral DAILY [facility] METOPROLOL TARTRATE 50 MG ORAL TAB 2005-06 00:00: 00 03-27 00:00 :00 No take 1 pill PO Q12h [facility] FAMOTIDINE 20 MG ORAL TAB 2005-06 00:00: 00 03-27 00:00 :00 No 1 Tab Oral [id number] [facility] ASPIRIN, BUFFERED 325 MG ORAL TAB 2005- 0-30 00:00: 00 03-27 00:00 :00 No 1 Tab Oral DAILY [facility] Amitriptyli ne HCl 10 MG TAB Amitriptyli ne HCl 10 MG TAB Yes 10 AT BEDTIME (2100) as needed [facility] Amlodipine Besylate (AMLODIPINE 5 MG TAB) 5 MG TAB Amlodipine Besylate (AMLODIPINE 5 MG TAB) 5 MG TAB Yes 5 EVERY MORNING [facility] B Complex W/ C (B-Complex Plus Vitamin C) TAB B Complex W/ C (B-Complex Plus Vitamin C) TAB Yes 1 EVERY DAY @ 0900 [facility] CHOLECALCIF JACKSON (VITAMIN D-3 2000 UNIT TAB) 2,000 UNIT TAB CHOLECALCIF JACKSON (VITAMIN D-3 2000 UNIT TAB) 2,000 UNIT TAB Yes 2000 EVERY DAY @ 0900 [facility] Doxazosin Mesylate (DOXAZOSIN 2 MG TAB) 2 MG TAB Doxazosin Mesylate (DOXAZOSIN 2 MG TAB) 2 MG TAB Yes 2 AT BEDTIME (2100) [facility] FUROSEMIDE (FUROSEMIDE 20 MG TAB) 20 MG TAB FUROSEMIDE (FUROSEMIDE 20 MG TAB) 20 MG TAB Yes 10 EVERY DAY @ 0900 [facility] Hydrocodone -Acetaminop hen (HYDROCODON E/APAP 10/325 MG TAB) 1 TAB TAB Hydrocodone -Acetaminop hen (HYDROCODON E/APAP 10/325 MG TAB) 1 TAB TAB Yes 1 FOUR TIMES A DAY (0900) as needed [facility] Losartan Potassium 100 MG TAB Losartan Potassium 100 MG TAB Yes 100 [facility] OMEGA-3 FATTY ACIDS (OMEGA 3 (MULTIPLE STRENGTHS) CAP) 340 MG CAP OMEGA-3 FATTY ACIDS (OMEGA 3 (MULTIPLE STRENGTHS) CAP) 340 MG CAP Yes 340 EVERY DAY @ 0900 [facility] Omeprazole (PRILOSEC 20 MG CAP) 20 MG CAP Omeprazole (PRILOSEC 20 MG CAP) 20 MG CAP Yes 20 EVERY DAY @ 0900 [facility] Potassium Chloride (Klor-Con M10) 10 MEQ TAB Potassium Chloride (Klor-Con M10) 10 MEQ TAB Yes 10 EVERY DAY @ 0900 [facility] Pravastatin Sodium 20 MG TAB Pravastatin Sodium 20 MG TAB Yes 20 AT BEDTIME (2100) [facility] Vitamin E (Vit E Complx) 400 UNIT CAP Vitamin E (Vit E Complx) 400 UNIT CAP Yes 400 EVERY DAY @ 0900 [facility] Immunizations Ordered Immunization Name Filled Immunization Name Date Status Comments Source Influenza Virus Vaccine 2006-03-22 00:00:00 Completed [facility] Influenza Virus Vaccine 2006-03-22 00:00:00 Completed [facility] Influenza Virus Vaccine 2006-03-22 00:00:00 Completed [facility] Influenza Virus Vaccine 2006-03-22 00:00:00 Completed [facility] Influenza Virus Vaccine 2006-03-22 00:00:00 Completed [facility] Influenza Virus Vaccine 2006-03-22 00:00:00 Completed [facility] Influenza Virus Vaccine 2006-03-22 00:00:00 Completed [facility] Influenza Virus Vaccine 2006-03-22 00:00:00 Completed [facility] Influenza Virus Vaccine 2006-03-22 00:00:00 Completed [facility] Influenza Virus Vaccine 2006-03-22 00:00:00 Completed [facility] Influenza Virus Vaccine 2006-03-22 00:00:00 Completed [facility] Influenza Virus Vaccine 2006-03-22 00:00:00 Completed [facility] Influenza Virus Vaccine 2006-03-22 00:00:00 Completed [facility] Influenza Virus Vaccine 2006-03-22 00:00:00 Completed [facility] Influenza Virus Vaccine 2006-03-22 00:00:00 Completed [facility] Influenza Virus Vaccine 2006-03-22 00:00:00 Completed [facility] Influenza Virus Vaccine 2006-03-22 00:00:00 Completed [facility] Influenza Virus Vaccine 2006-03-22 00:00:00 Completed [facility] Influenza Virus Vaccine 2006-03-22 00:00:00 Completed [facility] Influenza Virus Vaccine 2006-03-22 00:00:00 Completed [facility] Influenza Virus Vaccine 2006-03-22 00:00:00 Completed [facility] Influenza Virus Vaccine 2006-03-22 00:00:00 Completed [facility] Influenza Virus Vaccine 2006-03-22 00:00:00 Completed [facility] Influenza Virus Vaccine 2006-03-22 00:00:00 Completed [facility] Influenza Virus Vaccine 2006-03-22 00:00:00 Completed [facility] Influenza Virus Vaccine 2006-03-22 00:00:00 Completed [facility] Influenza Virus Vaccine 2006-03-22 00:00:00 Completed [facility] Influenza Virus Vaccine 2006-03-22 00:00:00 Completed [facility] Influenza Virus Vaccine 2006-03-22 00:00:00 Completed [facility] Influenza Virus Vaccine 2006-03-22 00:00:00 Completed [facility] Influenza Virus Vaccine 2006-03-22 00:00:00 Completed [facility] Influenza Virus Vaccine 2006-03-22 00:00:00 Completed [facility] Influenza Virus Vaccine 2006-03-22 00:00:00 Completed [facility] Influenza Virus Vaccine 2006-03-22 00:00:00 Completed [facility] Influenza Virus Vaccine 2006-03-22 00:00:00 Completed [facility] Influenza Virus Vaccine 2006-03-22 00:00:00 Completed [facility] Influenza Virus Vaccine 2006-03-22 00:00:00 Completed [facility] Influenza Virus Vaccine 2006-03-22 00:00:00 Completed [facility] Influenza Virus Vaccine 2006-03-22 00:00:00 Completed [facility] Influenza Virus Vaccine 2006-03-22 00:00:00 Completed [facility] Influenza Virus Vaccine 2006-03-22 00:00:00 Completed [facility] Influenza Virus Vaccine 2006-03-22 00:00:00 Completed [facility] Influenza Virus Vaccine 2006-03-22 00:00:00 Completed [facility] Influenza Virus Vaccine 2006-03-22 00:00:00 Completed [facility] Influenza Virus Vaccine 2006-03-22 00:00:00 Completed [facility] Influenza Virus Vaccine 2006-03-22 00:00:00 Completed [facility] Influenza Virus Vaccine Unknown Completed [facility] Influenza Virus Vaccine Unknown Completed [facility] Influenza Virus Vaccine Unknown Completed [facility] Influenza Virus Vaccine Unknown Completed [facility] Influenza Virus Vaccine Unknown Completed [facility] Influenza Virus Vaccine Unknown Completed [facility] Influenza Virus Vaccine Unknown Completed [facility] Influenza Virus Vaccine Unknown Completed [facility] Influenza Virus Vaccine Unknown Completed [facility] Influenza Virus Vaccine Unknown Completed [facility] Influenza Virus Vaccine Unknown Completed [facility] Influenza Virus Vaccine Unknown Completed [facility] Influenza Virus Vaccine Unknown Completed [facility] Influenza Virus Vaccine Unknown Completed [facility] Influenza Virus Vaccine Unknown Completed [facility] Influenza Virus Vaccine Unknown Completed [facility] Influenza Virus Vaccine Unknown Completed [facility] Influenza Virus Vaccine Unknown Completed [facility] Influenza Virus Vaccine Unknown Completed [facility] Influenza Virus Vaccine Unknown Completed [facility] Influenza Virus Vaccine Unknown Completed [facility] Influenza Virus Vaccine Unknown Completed [facility] Influenza Virus Vaccine Unknown Completed [facility] Influenza Virus Vaccine Unknown Completed [facility] Influenza Virus Vaccine Unknown Completed [facility] Influenza Virus Vaccine Unknown Completed [facility] Influenza Virus Vaccine Unknown Completed [facility] Influenza Virus Vaccine Unknown Completed [facility] Influenza Virus Vaccine Unknown Completed [facility]enza Virus Vaccine Unknown Completed [facility] Influenza Virus Vaccine Unknown Completed [facility]enza Virus Vaccine Unknown Completed [facility]enza Virus Vaccine Unknown Completed [facility]enza Virus Vaccine Unknown Completed [facility] Influenza Virus Vaccine Unknown Completed [facility] Influenza Virus Vaccine Unknown Completed [facility] Influenza Virus Vaccine Unknown Completed [facility] Influenza Virus Vaccine Unknown Completed [facility] Influenza Virus Vaccine Unknown Completed [facility] Vital Signs Vital Name Observation Time Observation Value Comments S ource Systolic blood pressure 2023-05-16 17:18:00 171 mm[Hg] [facility] Diastolic blood pressure 2023-05-16 17:18:00 80 mm[Hg] [facility] Heart rate 2023-05-16 17:05:00 81 /min [facility] Respiratory rate 2023-05-16 17:05:00 18 /min [facility] Body height 2023-05-16 17:05:00 149.9 cm [facility] Body weight 2023-05-16 17:05:00 43.772 kg [facility] BMI 2023-05-16 17:05:00 19.49 kg/m2 Univ [facility] Oxygen saturation in Arterial blood by Pulse oximetry 2023-05-16 17:05:00 96 /min [facility] Systolic blood pressure 2023-05-09 17:37:00 207 mm[Hg] [facility] Diastolic blood pressure 2023-05-09 17:37:00 78 mm[Hg] [facility] Heart rate 2023-05-09 17:27:00 70 /min [facility] Body temperature 2023-05-09 17:27:00 35.89 Dot[place] [facility] Body height 2023-05-09 17:27:[address] [facility] Body weight 2023-05-09 17:27:00 43.545 kg [facility] BMI 2023-05-09 17:27:00 19.39 kg/m2 [facility] Oxygen saturation in Arterial blood by Pulse oximetry 2023-05-09 17:27:00 97 /min [facility] Systolic blood pressure 2023-05-09 17:37:00 207 mm[Hg] [facility] Diastolic blood pressure 2023-05-09 17:37:00 78 mm[Hg] [facility] Heart rate 2023-05-09 17:26:00 70 /min [facility] Body temperature 2023-05-09 17:26:00 35.89 Dot[facility] Body height 2023-05-09 17:26:[address] [facility] Body weight 2023-05-09 17:26:[address] [facility] BMI 2023-05-09 17:26:00 19.39 kg/m2 [facility] Oxygen saturation in Arterial blood by Pulse oximetry 2023-05-09 17:26:00 97 /min [facility] Systolic blood pressure 2023-04-30 17:40:00 182 mm[Hg] [facility] Diastolic blood pressure 2023-04-30 17:40:00 80 mm[Hg] [facility] Heart rate 2023-04-30 17:40:00 78 /min [facility] Oxygen saturation in Arterial blood by Pulse oximetry 2023-04-30 17:40:00 97 /min [facility] Respiratory rate 2023-04-30 17:38:00 18 /min [facility] Body height 2023-04-30 17:38:[address] [facility] Body weight 2023-04-30 17:38:[address] [facility] BMI 2023-04-30 17:38:00 19.79 kg/m2 [facility] Systolic blood pressure 2023-01-25 18:48:00 199 mm[Hg] [facility] Diastolic blood pressure 2023-01-25 18:48:00 76 mm[Hg] [facility] Body weight 2023-01-25 18:22:00 46.947 kg [facility] BMI 2023-01-25 18:22:00 20.90 kg/m2 [facility] Systolic blood pressure 2023-01-15 21:02:00 148 mm[Hg] [facility] Diastolic blood pressure 2023-01-15 21:02:00 56 mm[Hg] [facility] Heart rate 2023-01-15 21:00:00 60 /min [facility] Body temperature 2023-01-15 21:00:00 37.28 Dot[place] [facility] Respiratory rate 2023-01-15 21:00:00 16 /min [facility] Body height 2023-01-15 21:00:[address] [facility] Body weight 2023-01-15 21:00:00 45.859 kg [facility] BMI 2023-01-15 21:00:00 20.42 kg/m2 Univ [facility] Oxygen saturation in Arterial blood by Pulse oximetry 2023-01-15 21:00:00 99 /min [facility] Systolic blood pressure 2023-01-03 19:36:00 212 mm[Hg] [facility] Diastolic blood pressure 2023-01-03 19:36:00 71 mm[Hg] [facility] Heart rate 2023-01-03 19:31:00 60 /min Unive [facility] Body temperature 2023-01-03 19:31:00 36.22 [facility] Body height 2023-01-03 19:31:[address] [facility] Body weight 2023-01-03 19:31:[address] [facility] BMI 2023-01-03 19:31:00 20.94 kg/m2 Univ [facility] Oxygen saturation in Arterial blood by Pulse oximetry 2023-01-03 19:31:00 99 /min [facility] Systolic blood pressure 2022-12-24 18:40:00 135 mm[Hg] [facility] Diastolic blood pressure 2022-12-24 18:40:00 65 mm[Hg] [facility] Heart rate 2022-12-24 18:39:00 60 /min Unive [facility] Respiratory rate 2022-12-24 18:39:00 18 /min [facility] Body height 2022-12-24 18:39:[address] [facility] Body weight 2022-12-24 18:39:[address] [facility] BMI 2022-12-24 18:39:00 20.66 kg/m2 Univ [facility] Systolic blood pressure 2022-11-22 23:39:00 108 mm[Hg] [facility] Diastolic blood pressure 2022-11-22 23:39:00 88 mm[Hg] [facility] Heart rate 2022-11-22 23:39:00 60 /min [facility] 2022-11-22 23:39:00 21 /min [facility] Oxygen saturation in Arterial blood by Pulse oximetry 2022-11-22 23:39:00 99 /min [facility] Body temperature 2022-11-22 22:18:00 36.33 [facility] Body weight 2022-11-22 22:18:[address] [facility] BMI 2022-11-22 22:18:00 21.33 kg/m2 Univ [facility] Systolic blood pressure 2022-11-22 22:02:00 201 mm[Hg] [facility] Diastolic blood pressure 2022-11-22 22:02:00 69 mm[Hg] [facility] Heart rate 2022-11-22 21:08:00 59 /min Unive [facility] Body temperature 2022-11-22 21:08:00 36.56 [facility] Body height 2022-11-22 21:08:[address] [facility] Body weight 2022-11-22 21:08:[address] [facility] BMI 2022-11-22 21:08:00 21.31 kg/m2 Univ [facility] Oxygen saturation in Arterial blood by Pulse oximetry 2022-11-22 21:08:00 99 /min [facility] Systolic blood pressure 2022-11-07 18:27:00 175 mm[Hg] [facility] Diastolic blood pressure 2022-11-07 18:27:00 74 mm[Hg] [facility] Heart rate 2022-11-07 18:27:00 61 /min Unive [facility] Body temperature 2022-11-07 18:27:00 36.39 [facility] Respiratory rate 2022-11-07 18:27:00 18 /min [facility] Body height 2022-11-07 18:27:[address] [facility] Body weight 2022-11-07 18:27:[address] [facility] BMI 2022-11-07 18:27:00 20.82 kg/m2 Univ [facility] Oxygen saturation in Arterial blood by Pulse oximetry 2022-11-07 18:27:00 99 /min [facility] Systolic blood pressure 2022-05-09 17:16:00 161 mm[Hg] [facility] Diastolic blood pressure 2022-05-09 17:16:00 71 mm[Hg] [facility] Heart rate 2022-05-09 17:12:00 70 /min Unive [facility] Body temperature 2022-05-09 17:12:00 36.44 [facility] Respiratory rate 2022-05-09 17:12:00 18 /min [facility] Body height 2022-05-09 17:12:[address] [facility] Body weight 2022-05-09 17:12:00 45.36 kg [facility] BMI 2022-05-09 17:12:00 20.20 kg/m2 [facility] Oxygen saturation in Arterial blood by Pulse oximetry 2022-05-09 17:12:00 97 /min [facility] Systolic blood pressure 2022-05-09 17:17:00 161 mm[Hg] [facility] Diastolic blood pressure 2022-05-09 17:17:00 71 mm[Hg] [facility] Heart rate 2022-05-09 17:07:00 70 /min [facility] Body temperature 2022-05-09 17:07:00 36.44 [facility] Respiratory rate 2022-05-09 17:07:00 18 /min [facility] Body height 2022-05-09 17:07:[address] [facility] Body weight 2022-05-09 17:07:00 45.36 kg [facility] BMI 2022-05-09 17:07:00 20.20 kg/m2 [facility] Oxygen saturation in Arterial blood by Pulse oximetry 2022-05-09 17:07:00 97 /min [facility] Systolic blood pressure 2022-04-20 17:19:00 109 mm[Hg] [facility] Diastolic blood pressure 2022-04-20 17:19:00 66 mm[Hg] [facility] Heart rate 2022-04-20 17:19:00 57 /min [facility] height 2022-04-20 17:19:00 [facility]9 [facility] 2022-04-20 17:19:00 [facility]453 [facility] BMI 2022-04-20 17:19:00 19.79 kg[facility]m2 [facility] Systolic blood pressure 2022-03-27 15:40:00 184 mm[Hg] [facility] Diastolic blood pressure 2022-03-27 15:40:00 81 mm[Hg] [facility] Heart rate 2022-03-27 15:40:00 67 /min [facility] 2022-03-27 15:40:00 18 /min [facility] Body height 2022-03-27 15:40:00 149.9 cm [facility] Body weight 2022-03-27 15:40:00 45.36 kg [facility] BMI 2022-03-27 15:40:00 20.20 kg/m2 [facility] Oxygen saturation in Arterial blood by Pulse oximetry 2022-03-27 15:40:00 98 /min [facility] Respiratory rate 2017-08-21 15:33:00 27 /min [facility] Procedures Procedure Date / Time Performed Performing Clinician Source OP CORRESPONDENCE 2023-07-10 06:01:00 Doctor Saray ssigned, [facility] PAIN MANAGEMENT AGREEMENT & INFORMED CONSENT 2023-05-09 06:01:00 Doctor Unassigned, [facility] CONSENT/REFUSAL FOR DIAGNOSIS AND TREATMENT 2023-04-30 17:20:51 Doctor Unassigned, [facility] EXTERNAL PROVIDER RECORDS 2023-04-15 06:01:00 Do ctor Unassigned, [facility] CT ABDOMEN PELVIS W CONTRAST 2023-03-19 16:37:55 Lauren [facility] OP CORRESPONDENCE 2023-02-01 05:01:00 Doctor Saray ssigned, [facility] US ABDOMEN LIMITED 2022-12-18 16:37:34 Dameon Brooks [facility] ECG 12-LEAD 2022-12-07 18:22:50 Jesse Baum [facility] CONSENT/REFUSAL FOR DIAGNOSIS AND TREATMENT 2022-11-22 22:08:28 Doctor Unassigned, [facility] FREE T4 2022-11-07 19:51:00 Chuy Brooks [facility] THYROID STIMULATING HORMONE 2022-11-07 19:51:00 Chuy Brooks [facility] COMP. METABOLIC PANEL (61113) 2022-11-07 19:51:00 Chuy Brooks [facility] LIPID PANEL (78032)(TOTAL CHOLESTEROL, TRIGLYCERIDES, HDL) 2022-11-07 19:51:00 Chuy Brooks [facility] CBC WITH DIFF 2022-11-07 19:51:00 Chuy Brooks [facility] GLYCOSYLATED HEMOGLOBIN (A1C) 2022-11-07 19:51:00 Chuy Brooks [facility] FREE T3 2022-11-07 19:51:00 Chuy Brooks [facility] CBCA W/PLT & AUTO DIFFERENTIAL 2019-07-22 00:00:00 [facility] COMPREHENSIVE METABOLIC PANEL 2019-07-22 00:00:00 [facility] CARDIAC MARKERS PANEL (ER) 2019-07-22 00:00:00 [facility] BNP RAPID 2019-07-22 00:00:00 [facility] TROPONIN I 2019-07-22 00:00:00 [facility] CHEST 1 VIEW (AP) 2019-07-22 00:00:00 [facility] CT ANGIOGRAM CHEST 2019-07-22 00:00:00 [facility] LUMBAR 2 OR 3 VIEWS 2019-07-09 00:00:00 [facility] CBCA W/PLT & AUTO DIFFERENTIAL 2018-07-05 00:00:00 [facility] COMPREHENSIVE METABOLIC PANEL 2018-07-05 00:00:00 [facility] PROTIME 2018-07-05 00:00:00 [facility] PTT 2018-07-05 00:00:00 [facility] CARDIAC MARKERS PANEL (ER) 2018-07-05 00:00:00 [facility] BNP RAPID 2018-07-05 00:00:00 [facility] ROUTINE URINALYSIS 2018-07-05 00:00:00 [facility] MAGNESIUM 2018-07-05 00:00:00 [facility] CHEST 1 VIEW (AP) 2018-07-05 00:00:00 [facility] Encounters Start Date/Time End Date/Time Encounter Type Admission Type Attending Clinicians Care Facility Care Department Encounter ID Source 2022-06-12 09:31:04 Outpatient [facility] [id number] [facility] 2022-05-28 08:55:46 Outpatient [facility] [id number] [facility] 2022-05-25 12:54:23 Outpatient [facility] [id number] [facility] 2022-05-22 10:23:11 Outpatient [facility] [id number] [facility] 2022-05-11 08:32:39 Outpatient [facility] [id number] [facility] 2022-04-20 11:02:48 Outpatient [facility] [id number] [facility] 2022-04-19 13:23:11 Outpatient [facility] [id number] [facility] 2022-04-13 16:19:02 Outpatient [facility] [id number] [facility] 2022-04-10 13:04:37 Outpatient [facility] [id number] [facility] 2019-07-22 08:32:00 Inpatient [facility] [id number] [facility] 2023-07-10 00:00:00 2023-07-10 00:00:00 Telephone Chuy Brooks [facility] 1.2.840.114 350.1.13.10 4.2.7.2.686 [id number] [facility] 2023-07-10 00:00:00 2023-07-10 00:00:00 Telephone Chuy Brooks [facility] 1.2.840.114 350.1.13.10 4.2.7.2.686 [id number] [facility] 2023-07-10 00:00:00 2023-07-10 00:00:00 Orders Only Doctor Unassigned, [place] [facility] 1.2.840.114 350.1.13.10 4.2.7.2.686 [id number] [facility] 2023-07-09 12:15:00 2023-07-09 12:30:00 Assembler Handbags Visit Pob, Adc Lab Main [facility] 1.2.840.114 350.1.13.10 4.2.7.2.686 [id number] [facility] 2023-07-09 12:15:00 2023-07-09 12:15:00 Outpatient [facility] [id number] [facility] 2023-07-09 00:00:00 2023-07-09 00:00:00 Nurse Triage Emy Sharma [facility] 1.2.840.114 350.1.13.10 4.2.7.2.686 [id number] [facility] 2023-07-08 00:00:00 2023-07-08 00:00:00 Refill [facility] 1.2.840.114 350.1.13.10 4.2.7.2.686 [id number] [facility] 2023-06-24 00:00:00 2023-06-24 00:00:00 Refill [facility] 1.2.840.114 350.1.13.10 4.2.7.2.686 [id number] [facility] 2023-06-18 12:00:00 2023-06-18 12:00:00 Outpatient R [facility] [id number] [facility] 2023-05-31 12:45:38 2023-05-31 23:59:00 Hospital Encounter Shell Selenaaaronmina [facility] 1.2.840.114 350.1.13.10 4.2.7.2.686 [id number] [facility] 2023-05-31 12:44:27 2023-05-31 12:44:27 Outpatient R CHUY BROOKS [facility] [id number] [facility] 2023-05-31 12:44:27 2023-05-31 12:44:27 Hospital Encounter Chuy Brooks [facility] 1.2.840.114 350.1.13.10 4.2.7.2.686 [id number] [facility] 2023-05-30 00:00:00 2023-05-30 00:00:00 Refill Chuy Brooks [facility]ESS[facility] 1.2.840.114 350.1.13.10 4.2.7.2.686 [id number] [facility] 2023-05-24 00:00:00 2023-05-24 00:00:00 Outpatient R JENNIFER HERNANDEZ SHIWAN [facility] [id number] [facility] 2023-05-23 00:00:00 2023-05-23 00:00:00 Outpatient R JENNIFER HERNANDEZ SHIWAN [facility] [id number] [facility] 2023-05-16 11:30:00 2023-05-16 11:31:05 Outpatient R JING ZHOU [facility] [id number] [facility] 2023-05-16 11:30:00 2023-05-16 11:31:05 Office Visit Jing Zhou [facility] 1.2.840.114 350.1.13.10 4.2.7.2.686 [id number] [facility] 2023-05-14 00:00:00 2023-05-14 00:00:00 Patient Secure Msg Doctor Unassigned, [place] [facility] 1.2840.114 350.1.13.10 4.2.7.2.686 [id number] [facility] 2023-05-10 13:30:00 2023-05-10 13:30:00 [facility] [id number] [facility] 2023-05-10 00:00:00 2023-05-10 00:00:00 Patient Secure Msg Doctor Unassigned, [place] [facility] 1.284.114 350.1.13.10 4.2.7.2.686 [id number] [facility] 2023-05-09 11:00:00 2023-05-09 12:16:17 Outpatient R CHUY BROOKS [facility] [id number] [facility] 2023-05-09 11:00:00 2023-05-09 12:16:17 Office Visit Chuy Brooks [facility] 1.2.840.114 350.1.13.10 4.2.7.2.686 [id number] [facility] 2023-05-09 10:40:00 2023-05-09 12:16:04 Office Visit Chuy Brooks [facility] 1.2.840.114 350.1.13.10 4.2.7.2.686 [id number] [facility] 2023-05-09 00:00:2023-05-09 00:00:00 Orders Only Doctor Unassigned, [place] [facility] 1.2840.114 350.1.13.10 4.2.7.2.686 [id number] [facility] 2023-05-08 00:00:00 2023-05-08 00:00:00 [facility]Chuy hutch[facility] 1.2.840.114 350.1.13.10 4.2.7.2.686 [id number] [facility] 2023-05-07 00:00:00 2023-05-07 00:00:00 Refill YolaChuy landeros [facility] 1.2.840.114 350.1.13.10 4.2.7.2.686 [id number] [facility] 2023-05-06 13:30:00 2023-05-06 13:30:00 Outpatient R JING ZHOU [facility] [id number] [facility] 2023-05-06 00:00:00 2023-05-06 00:00:00 Refill YolaChuy landeros [facility] 1.2.840.114 350.1.13.10 4.2.7.2.686 [id number] [facility] 2023-04-30 11:00:00 2023-04-30 12:10:14 Outpatient R JENNIFER HERNANDEZ SHIWAN [facility] [id number] [facility] 2023-04-30 11:00:00 2023-04-30 12:10:14 Office Visit Jennifer Hernandez [facility] 1.2.840.114 350.1.13.10 4.2.7.2.686 [id number] [facility] 2023-04-30 00:00:00 2023-04-30 00:00:00 Orders Only Doctor Unassigned, [place] [facility] 1.2840.114 350.1.13.10 4.2.7.2.686 [id number] [facility] 2023-04-29 00:00:00 2023-04-29 00:00:00 Refill Jing Zhou [facility] 1.2.840.114 350.1.13.10 4.2.7.2.686 [id number] [facility] 2023-04-24 00:00:00 2023-04-24 00:00:00 Refill Chuy Brooks [facility] 1.2.840.114 350.1.13.10 4.2.7.2.686 [id number] [facility] 2023-04-22 00:00:00 2023-04-22 00:00:00 Refill Chuy Brooks [facility] 1.2840.114 350.1.13.10 4.2.7.2.686 [id number] [facility] 2023-04-15 00:00:00 2023-04-15 00:00:00 Orders Only Doctor Unassigned, [place] [facility] 1.2840.114 350.1.13.10 4.2.7.2.686 [id number] [facility] 2023-04-08 00:00:00 2023-04-08 00:00:00 Refill Chuy Brooks [facility] 1.2840.114 350.1.13.10 4.2.7.2.686 [id number] [facility] 2023-03-28 00:00:00 2023-03-28 00:00:00 Refill Anna Peter [facility] 1.840.114 350.1.13.10 4.2.7.2.686 [id number] [facility] 2023-03-25 00:00:00 2023-03-25 00:00:00 Refill Chilo Zhoussica [facility] K[facility]EL[facility] 1.2840.114 350.1.13.10 4.2.7.2.686 [id number] [facility] 2023-03-19 10:16:12 2023-03-19 23:59:00 Outpatient LAUREN BRONSON [facility] [id number] [facility] 2023-03-19 10:16:12 2023-03-19 23:59:00 Hospital Lauren Sharpe [facility] 1.0.114 350.1.13.10 4.2.7.2.686 [id number] [facility] 2023-02-18 00:00:00 2023-02-18 00:00:00 [facility] 1.840.114 350.1.13.10 4.2.7.2.686 [id number] [facility] 2023-02-01 00:00:00 2023-02-01 00:00:00 Orders Only Doctor Unassigned, [place] [facility] 1.2840.114 350.1.13.10 4.2.7.2.686 [id number] [facility] 2023-01-28 00:00:00 2023-01-28 00:00:00 Telephone [place] [facility] 1.2840.114 350.1.13.10 4.2.7.2.686 [id number] [facility] 2023-01-25 13:00:00 2023-01-25 13:51:43 [id number] 2023-01-25 13:00:00 2023-01-25 13:51:43 [facility] 1.2.840.114 350.1.13.10 4.2.7.2.686 [id number] [facility] 2023-01-25 00:00:00 2023-01-25 00:00:00 [facility] 1..840.114 350.1.13.10 4.2.7.2.686 [id number] [facility] 2023-01-16 00:00:00 2023-01-16 00:00:00 Patient Secure Msg Doctor Unassigned, [place] [facility] 1..840.114 350.1.13.10 4.2.7.2.686 [id number] [facility] 2023-01-15 15:40:00 2023-01-15 16:51:06 Outpatient [place] [facility] [id number] [facility] 2023-01-15 15:40:00 2023-01-15 16:51:06 [facility] 1.2.840.114 350.1.13.10 4.2.7.2.686 [id number] [facility] 2023-01-11 00:00:00 2023-01-11 00:00:00 Telephone Obi-Henri , [facility] NAL BUILDING 1.2.840.114 350.1.13.10 4.2.7.2.686 [id number] [facility] 2023-01-03 14:20:00 2023-01-03 15:14:02 Outpatient [place] [facility] [id number] [facility] 2023-01-03 14:20:00 2023-01-03 15:14:02 Office Visit Yareli [facility] BUILD[facility] 1.2.840.114 350.1.13.10 4.2.7.2.686 [id number] [facility] 2022-12-24 13:30:00 2022-12-24 14:26:38 Outpatient R JING ZHOU [facility] [id number] [facility] 2022-12-24 13:30:00 2022-12-24 14:26:38 [facility] 1.2.840.114 350.1.13.10 4.2.7.2.686 [id number] [facility] 2022-12-21 00:00:00 2022-12-21 00:00:00 Telephone Chuy Brooks [facility] 1.2.840.114 350.1.13.10 4.2.7.2.686 [id number] [facility] 2022-12-18 11:15:58 2022-12-18 23:59:00 Outpatient R CHUY BROOKS [facility] [id number] [facility] 2022-12-18 11:00:00 2022-12-18 23:59:00 Hospital Encounter Chuy Brooks [facility] 1.2840.114 350.1.13.10 4.2.7.2.686 [id number] [facility] 2022-12-13 13:45:00 2022-12-13 13:45:00 Outpatient CHUY SEGUNDO [facility] [id number] [facility] 2022-12-10 13:00:00 2022-12-10 13:00:00 Outpatient R CHUY BROOKS [facility] [id number] [facility] 2022-12-10 00:00:00 2022-12-10 00:00:00 Patient Secure Msg Doctor Unassigned, [place] [facility] 1.2840.114 350.1.13.10 4.2.7.2.686 [id number] [facility] 2022-12-10 00:00:00 2022-12-10 00:00:00 Patient Secure Msg Doctor Unassigned, [place] [facility] 1.2840.114 350.1.13.10 4.2.7.2.686 [id number] [facility] 2022-12-03 00:00:00 2022-12-03 00:00:00 Outpatient R CHUY BROOKS [facility] [id number] [facility] 2022-11-30 00:00:00 2022-11-30 00:00:00 Patient Secure Msg Doctor Unassigned, [place] [facility] 1.2840.114 350.1.13.10 4.2.7.2.686 [id number] [facility] 2022-11-22 17:20:00 2022-11-22 18:50:00 [facility] 1.2840.114 350.1.13.10 4.2.7.2.686 [id number] [facility] 2022-11-22 16:00:00 2022-11-22 17:06:38 Outpatient R CHUY BROOKS [facility] [id number] [facility] 2022-11-22 16:00:00 2022-11-22 17:06:38 Out[address]OO[address] 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 Visit 2, [facility] 1.2.840.114 350.1.13.10 4.2.7.2.686 [id number] [facility] 2022-11-07 13:20:00 2022-11-07 14:09:34 Outpatient R CHUY BROOKS [facility] [id number] [facility] 2022-11-07 13:20:00 2022-11-07 14:09:34 Office Visit [facility] 1.2.840.114 350.1.13.10 4.2.7.2.686 [id number] [facility] 2022-10-31 00:00:00 2022-10-31 00:00:00 Refill AngelaanaiChuy landeros [facility] 1.2.840.114 350.1.13.10 4.2.7.2.686 [id number] [id number] [facility] 2022-10-25 00:00:00 2022-10-25 00:00:00 Refill Chuy Brooks [facility] 1.2.840.114 350.1.13.10 4.2.7.2.686 [id number] [facility] 2022-10-02 13:30:00 2022-10-02 13:30:00 Outpatient JING AGUSTIN [facility] [id number] [facility] 2022-09-04 16:00:00 2022-09-04 16:00:00 Outpatient JING AGUSTIN [facility] [id number] [facility] 2022 15:00:00 2022 15:00:00 Outpatient JING AGUSTIN [facility] [id number] [facility] 2022-08-27 00:00:00 2022-08-27 00:00:00 Telephone Chuy Brooks [facility] 1.2.840.114 350.1.13.10 4.2.7.2.686 [id number] [facility] 2022-08-06 00:00:00 2022-08-06 00:00:00 Refill Chuy Brooks [facility] 1.2.840.114 350.1.13.10 4.2.7.2.686 [id number] [facility] 2022-08-06 00:00:00 2022-08-06 00:00:00 Telephone Chuy Brooks [facility] 1.2.840.114 350.1.13.10 4.2.7.2.686 [id number] [id number] [facility] 2022-08-02 12:30:00 2022-08-02 12:30:00 Outpatient Josef BAIN JING [facility] [id number] [facility] 2022-07-31 00:00:00 2022-07-31 00:00:00 Telephone Chuy Brooks [facility] 1.2.840.114 350.1.13.10 4.2.7.2.686 [id number] [facility] 2022-06-29 10:00:00 2022-06-29 10:00:00 Outpatient R BELKIS CHEYENNE [facility] [id number] [facility] 2022-06-15 00:00:00 2022-06-15 00:00:00 Refill Chuy Brooks [facility] 1..840.114 350.1.13.10 4.2.7.2.686 [id number] [facility] 2022-06-12 14:00:00 2022-06-12 14:00:00 Outpatient MCKENZIE PÉREZ [facility] [id number] [facility] 2022-05-28 00:00:00 2022-05-28 00:00:00 Outpatient CHUY SEGUNDO [facility] [id number] [facility] 2022-05-28 00:00:00 2022-05-28 00:00:00 Refill [facility] 1..840.114 350.1.13.10 4.2.7.2.686 [id number] [id number] [facility] 2022-05-17 00:00:00 2022-05-17 00:00:00 Telephone Belkis [facility] KAEL?[facility] 1..840.114 350.1.13.10 4.2.7.2.686 [id number] [id number] [facility] 2022-05-11 00:00:00 2022-05-11 00:00:00 Telephone Chuy Brooks [facility] 1.2.840.114 350.1.13.10 4.2.7.2.686 [id number] [id number] [facility] 2022-05-09 14:00:00 2022-05-09 14:00:00 Office Visit Chuy Brooks [facility] 1.2.840.114 350.1.13.10 4.2.7.2.686 [id number] [id number] [facility] 2022-05-09 14:00:00 2022-05-09 12:15:25 Outpatient R CJJAY CHUY [facility] [id number] [facility] 2022-05-09 10:20:00 2022-05-09 12:15:16 Office Visit Chuy Brooks [facility] 1.2.840.114 350.1.13.10 4.2.7.2.686 [id number] [facility] 2022-05-09 00:00:00 2022-05-09 00:00:00 Telephone Chuy Brooks [facility] 1.2.840.114 350.1.13.10 4.2.7.2.686 [id number] [id number] [facility] 2022-04-26 00:00:00 2022-04-26 00:00:00 Telephone Chuy Brooks [facility] 1.2.840.114 350.1.13.10 4.2.7.2.686 [id number] [id number] [facility] 2022-04-20 11:00:00 2022-04-20 12:00:15 Office Visit Jesse Baum [facility] [address] 1.2.840.114 350.1.13.58 9.2.7.2.686 [id number] [facility] 2022-04-18 00:00:00 2022-04-18 00:00:00 Case Management Radiology [facility] 1.2840.114 350.1.13.10 4.2.7.2.686 [id number] [facility] 2022-04-17 00:00:00 2022-04-17 00:00:00 Telephone Anna [facility] BUILDING 1.2.840.114 350.1.13.10 4.2.7.2.686 [id number] 044 [id number] [facility] 2022-04-11 00:00:00 2022-04-11 00:00:00 Refill Chuy Brooks [facility] 1.2.840.114 350.1.13.10 4.2.7.2.686 [id number] [id number] [facility] 2022-04-11 00:00:00 2022-04-11 00:00:00 Telephone Chuy Brooks [facility] 1.2.840.114 350.1.13.10 4.2.7.2.686 [id number] [id number] [facility] 2022-03-28 00:00:00 2022-03-28 00:00:00 Telephone Anna [facility] BUILDING 1.2.840.114 350.1.13.10 4.2.7.2.686 [id number] 044 [id number] [facility] 2022-03-27 10:00:00 2022-03-27 12:21:36 Office Visit Anna [facility] BUILDING 1.2.840.114 350.1.13.10 4.2.7.2.686 [id number] 044 [id number] [facility] 2022-03-27 10:00:00 2022-03-27 12:21:36 Outpatient R CHUY BROOKS [facility] [id number] [facility] 2022-03-27 00:00:00 2022-03-27 00:00:00 Telephone Chuy Brooks [facility] 1.2.840.114 350.1.13.10 4.2.7.2.686 [id number] [id number] [facility] 2022-01-22 16:38:00 2022-01-22 16:38:00 Outpatient Encounter [facility] 2.16.840.1. [id number] 11:38:00 2022-01-22 11:38:00 Outpatient 3 YAO ORLANDO [facility] [address] [facility] 2022-01-21 18:39:00 2022-01-21 21:19:00 Emergency Department Patient Visit [facility] 2.16.840.1. [id number] 13:39:00 2022-01-21 16:19:00 Emergency 1 KOLE BOYCE [facility] [address] [facility] 2021-12-23 20:33:00 2021-12-23 22:30:00 Emergency Department Patient Visit [facility] 2.16.840.1. [id number] 15:33:00 2021-12-23 17:30:00 [facility] [id number] [address] [facility] 2021-07-12 05:56:00 2021-07-12 11:50:00 Emergency Department [facility] [id number] 2021-07-11 23:56:00 2021-07-12 05:50:00 Emergency 1 OMAR GRAFF [facility] [id number] [facility] 2021-06-22 15:54:00 2021-06-22 15:54:00 [facility] [id number] 2021-06-22 09:54:00 2021-06-22 09:54:00 Outpatient 3 SIRENA WOODARD [facility] [id number] [address] [facility] 2021-06-01 17:07:00 2021-06-01 17:07:00 [facility] [id number] [facility] 2021-06-01 11:07:00 2021-06-01 11:07:00 Outpatient 3 SIRENA WOODARD [facility] LAB [id number] [address] [facility] 2021-03-19 17:00:00 2021-03-19 22:14:00 Emergency 1 OMAR GRAFF [facility] [id number] 101[address] [facility] 2020-12-28 13:00:00 2020-12-28 13:00:00 Outpatient 3 YAO ORLANDO [facility] [id number] [address] [facility] 2019-07-22 01:36:00 2019-07-22 07:37:00 Departed Emergency [facility] [id number] 2019-07-09 10:27:00 2019-07-09 10:27:00 Registered Referral [facility] [id number] [facility] 2018-07-05 00:20:00 2018-07-05 04:45:00 Departed Emergency [facility] [id number] [facility] [place] [place] Results Test Description Test Time Test Comments Results Result Co mments Source LIPID PROFILE (CORONARY RISK)2019-07-23 08:11:00* Test Item Value Reference Range Interpretation Comme nts TRIGLYCERIDES (test code = TRIG) 137 MG/DL 0-150 N Results may be depressed if patient is takingN-Acetylcystei ne (NAC) and Metamizole (Dipyrone). CHOLESTEROL (test code = CHOL) 131 MG/DL 133-200 L CHOLESTEROL/HDL RATIO (test code = CHOLHDL) 4.85 RATIO >0 REFERENCE RANGE: MALE FEMALE 1/2 AVG RISK 3.43 3.27 AVG RISK 4.97 4.44 2X AVG RISK 9.55 7.05 3X AVG RISK 23.39 11.04 HDL CHOLESTEROL (test code = HDL) 27 MG/DL 40-59 L Results maybe depressed if patient is taking Metamizole(Dipyrone) . NON-HDL CHOLESTEROL (test code = NHDL) 104 mg/dL <130 Patients with CHD or CHD risk LDL: <70 mg/dL nonHDL: <100 mg/dLPatients with 2+ risk factors LDL: <130 mg/dL nonHDL: <160 mg/dLPatients with 0-1 risk factors LDL: <160 mg/dL nonHDL: <190 mg/dL LIPOPROTEIN LDL (test code = LDL) 77 MG/DL 0-129 N LDL/HDL (test code = LDL/HDL) 2.85 Ratio 1.48-3.22 Avg N LDL/HDL RISK ASSESSMENT1.47 One-half average3.22 Average5.03 Two times average6.14 Three times average [id number] 08:11:00* Test Item Value Reference Range Interpretation Comme nts MAGNESIUM (test code = MAG) 2.1 MG/DL 1.6-2.6 N BASIC METABOLIC [id number] 08:00:00* Test Item Value Reference Range Interpretation Comme nts SODIUM (test code = NA) 139.0 mmol/L 133-144 N POTASSIUM (test code = K) 3.5 mmol/L 3.5-5.1 N CHLORIDE (test code = CL) 108 mmol/L 95-105 H CARBON DIOXIDE (test code = CO2) mmol/L 21-32 ANION GAP (test code = GAP) GAP calc 4.0-15.0 GLUCOSE (test code = GLU) MG/DL 70-110 BLOOD UREA NITROGEN (test code = BUN) MG/DL 7-18 CREATININE (test code = CREAT) MG/DL 0.55-1.30 CALCIUM (test code = CA) MG/DL 8.5-10.1 INDEX HEMOLYSIS (test code = HEMINDEX) 1 NORMAL <10 MG Index/DL 1 NORMAL INDEX ICTERIC (test code = ICTINDEX) 1 NORMAL <2 MG Index/DL 1 NORMAL INDEX LIPEMIA (test code = LIPINDEX) 1 NORMAL <50 MG Index/DL 1 NORMAL LIPID PROFILE (CORONARY RISK)2019-07-23 08:00:00* Test Item Value Reference Range Interpretation Comme nts TRIGLYCERIDES (test code = TRIG) MG/DL 0-150 CHOLESTEROL (test code = CHOL) MG/DL 133-200 CHOLESTEROL/HDL RATIO (test code = CHOLHDL) RATIO >0 HDL CHOLESTEROL (test code = HDL) MG/DL 40-59 NON-HDL CHOLESTEROL (test code = NHDL) mg/dL <130 LIPOPROTEIN LDL (test code = LDL) MG/DL 0-129 LDL/HDL (test code = LDL/HDL) Ratio 1.48-3.22 Avg [id number] 08:00:00* Test Item Value Reference Range Interpretation Comme nts MAGNESIUM (test code = MAG) MG/DL 1.6-2.6 CBC W/AUTO [id number] 07:28:00* Test Item Value Reference Range Interpretation Comme nts WHITE BLOOD CELL (test code = WBC) 7.4 K/mm3 4.1-12.1 N RED BLOOD CELL (test code = RBC) 3.20 M/mm3 3.8-5.5 L HEMOGLOBIN (test code = HGB) 9.8 G/DL 10.6-15.8 L HEMATOCRIT (test code = HCT) 29.5 % 31.8-47.4 L MEAN CELL VOLUME (test code = MCV) 92.2 fL 80.1-101.1 N MEAN CELL HGB (test code = MCH) 30.6 pg 25.3-35.3 N MEAN CELL HGB CONCETRATION ( test code = MCHC) 33.2 G/DL 32.7-35.1 N RED CELL DISTRIBUTION WIDTH (test code = RDW) 12.9 % 12.2-16.4 N RED CELL DISTRIBUTION WIDTH (test code = RDW-SD) 43.2 fL 36.4-46.3 N PLATELET COUNT (test code = PLT) 189 K/mm3 155-337 N MEAN PLATELET VOLUME (test c ode = MPV) 9.9 fL 6.8-11.2 N GRANULOCYTE % (test code = GR%) 46.6 % 37.8-82.6 N IMMATURE GRANULOCYTE % (test code = IG%) 0.4 % 0.0-2.0 N LYMPHOCYTE % (test code = LY%) 38.9 % 14.1-45.4 N MONOCYTE % (test code = MO%) 9.8 % 2.5-11.7 N EOSINOPHIL % (test code = EO%) 3.6 % 0.0-6.2 N BASOPHIL % (test code = BA%) 0.7 % 0.0-2.1 N NUCLEATED RBC % (test code = NRBC%) 0.0 /100WBC% 0.0-1.0 N GRANULOCYTE # (test code = GR#) 3.46 k/mm3 2.0-13.7 N IMMATURE GRANULOCYTE # (test code = IG#) 0.03 K/mm3 0.00-0.03 N LYMPHOCYTE # (test code = LY#) 2.89 K/mm3 0.6-3.8 N MONOCYTE # (test code = MO#) 0.73 K/mm3 0.11-0.59 H EOSINOPHIL # (test code = EO#) 0.27 K/mm3 0.0-0.4 N BASOPHIL # (test code = BA#) 0.05 K/mm3 0.0-0.1 N NUCLEATED RBC # (test code = NRBC#) 0.00 K/mm3 0.0-0.05 N [id number] 15:33:00* Test Item Value Reference Range Interpretation Comme nts TROPONIN-I (test code = TROPI) 0.135 NG/ML 0.000-0.045 HH Critical values after the first occurrence are excluded fromcall documentation requirements for this analyte due to thepatient diagnosis or therapy protocols.An elevated troponin value alone is not sufficient todiagnose a myocardial infarction. Rather, the patient'sclinical presentation (history, physical exam) and ECGshould be used in conjunction with troponin in thediagnostic evaluation of suspected myocardial infarction. Aserial sampling protocol is recommended to facilitate theidentification of temporal changes in troponin levelscharacteristic of MA. B-TYPE NATRIURETIC [id number] 14:17:00* Test Item Value Reference Range Interpretation Comme [facility] B-TYPE NATRIURETIC PEPTIDE ( test code = BNP) 812.07 PG/ML 0.00-100.00 H [id number] 12:15:00* Test Item Value Reference Range Interpretation Comme [facility] TROPONIN-I (test code = TROPI) 0.146 NG/ML 0.000-0.045 HH Critical values after the first occurrence are excluded fromcall documentation requirements for this analyte due to thepatient diagnosis or therapy protocols.An elevated troponin value alone is not sufficient todiagnose a myocardial infarction. Rather, the patient'sclinical presentation (history, physical exam) and ECGshould be used in conjunction with troponin in thediagnostic evaluation of suspected myocardial infarction. Aserial sampling protocol is recommended to facilitate theidentification of temporal changes in troponin levelscharacteristic of MA. EMERGENCY ROOM [id number] 11:32:00* Test Item Value Reference Range Interpretation Comme nts DIAGNOSIS (test code = DIAG) SPECIMENS RCVED SPECIMEN RECEIVED BASIC METABOLIC [id number] 09:13:00* Test Item Value Reference Range Interpretation Comme nts SODIUM (test code = NA) 140.0 mmol/L 133-144 N POTASSIUM (test code = K) 4.1 mmol/L 3.5-5.1 N CHLORIDE (test code = CL) 108 mmol/L 95-105 H CARBON DIOXIDE (test code = CO2) 28 mmol/L 21-32 N ANION GAP (test code = GAP) 4.0 GAP calc 4.0-15.0 N GLUCOSE (test code = GLU) 114 MG/DL 70-110 H BLOOD UREA NITROGEN (test code = BUN) 16 MG/DL 7-18 N CREATININE (test code = CREAT) 0.99 MG/DL 0.55-1.30 N Results may be depressed if patient is takingN-Acetylcyste ine (NAC) and Metamizole (Dipyrone). CALCIUM (test code = CA) 9.2 MG/DL 8.5-10.1 N INDEX HEMOLYSIS (test code = HEMINDEX) 1 NORMAL <10 MG Index/DL 1 NORMAL INDEX ICTERIC (test code = ICTINDEX) 1 NORMAL <2 MG Index/DL 1 NORMAL INDEX LIPEMIA (test code = LIPINDEX) 1 NORMAL <50 MG Index/DL 1 NORMAL [id number] 09:13:00* Test Item Value Reference Range Interpretation Comme nts TROPONIN-I (test code = TROPI) 0.164 NG/ML 0.000-0.045 HH ON 07/22/19 AT 0 913, B.LAB.EJK CALLED TO NAHUM SOOD. The report was confirmed by read back protocols Y,N: YES. Critical values after the first occurrence are excluded.An elevated troponin value alone is not sufficient todiagnose a myocardial infarction. Rather, the patient'sclinical presentation (history, physical exam) and ECGshould be used in conjunction with troponin in thediagnostic evaluation of suspected myocardial infarction. Aserial sampling protocol is recommended to facilitate theidentification of temporal changes in troponin levelscharacteristic of MA. BASIC METABOLIC [id number] 09:03:00* Test Item Value Reference Range Interpretation Comme nts SODIUM (test code = NA) 140.0 mmol/L 133-144 N POTASSIUM (test code = K) 4.1 mmol/L 3.5-5.1 N CHLORIDE (test code = CL) 108 mmol/L 95-105 H CARBON DIOXIDE (test code = CO2) 28 mmol/L 21-32 N ANION GAP (test code = GAP) 4.0 GAP calc 4.0-15.0 N GLUCOSE (test code = GLU) 114 MG/DL 70-110 H BLOOD UREA NITROGEN (test code = BUN) 16 MG/DL 7-18 N CREATININE (test code = CREAT) 0.99 MG/DL 0.55-1.30 N Results may be depressed if patient is takingN-Acetylcyste ine (NAC) and Metamizole (Dipyrone). CALCIUM (test code = CA) 9.2 MG/DL 8.5-10.1 N INDEX HEMOLYSIS (test code = HEMINDEX) 1 NORMAL <10 MG Index/DL 1 NORMAL INDEX ICTERIC (test code = ICTINDEX) 1 NORMAL <2 MG Index/DL 1 NORMAL INDEX LIPEMIA (test code = LIPINDEX) 1 NORMAL <50 MG Index/DL 1 NORMAL [id number] 09:03:00* Test Item Value Reference Range Interpretation Comme nts TROPONIN-I (test code = TROPI) NG/ML 0.000-0.045 - XR CHEST 1 [id number] 08:54:00FAX: Latrell Bob MD [phone] [place]: St: PRE Patient Name: SIRENA PURDY Unit No: [id number] EXAMS: CPT CODE: [id number] XR CHEST 1 V 17932 LOCATION: T18 EXAM: CHEST 1 VIEW INDICATION: , Chest pain COMPARISON: None. TECHNIQUE: AP chest radiograph. FINDINGS: Left AICD in place. No consolidation or pleural effusion isseen. There is asymmetric focal density in the right lung apex measuring 2.1 cm. This may be secondary to bony overlap and soft tissue shadowing. However the asymmetry is concerning for nodule. Heartis normal in size. Patient status post median sternotomy. Bones and peripheral soft tissues are unremarkable. IMPRESSION: Right apical nodule measuring 2.[address] Lungs are otherwise clear. at 0854 Reported and signed by: Kurt Fernández MD CC: Latrell Bob MD Dictated Date/Time: 07/22/2019 (0854)Technologist: JOSE PURCELL Transcribed Date/Time: 07/22/2019 (0854) By: [email or web address] Orig Print D/T: S: 07/22/2019 (0857) PAWEL diop NAME: SIRENA PURDY [address] [place] [address] PHYS: Latrell Barajas MD [place], [place] [address] : 1935 AGE: 83 SEX: F LOC: CATHI PHONE #: [phone] EXAM DATE: 07/22/2019 STATUS: PRE ER FAX #: [phone] RAD NO: DC Dt: PAGE 1 Signed ReportTROPOESTRELLITA Andres [id number] 08:53:00* Test Item Value Reference Range Interpretation Comme nts TROPONIN I RAPID (test code = TROPIRAP) 0.10 NG/ML 0.00-0.07 HH LOW/HIGH ALERT V ALUE - ACTION REQUIREDAn elevated troponin value alone is not sufficient todiagnose a myocardial infarction. Rather, the patient'sclinical presentation (history, physical exam) and ECGshould be used in conjunction with troponin in thediagnostic evaluation of suspected myocardial infarction. Aserial sampling protocol is recommended to facilitate theidentification of temporal changes in troponin levelscharacteristic of MA. CBC W/O [id number] 08:47:00* Test Item Value Reference Range Interpretation Comme nts WHITE BLOOD CELL (test code = WBC) [...] pg 25.3-35.3 N MEAN CELL HGB CONCETRATION ( test code = MCHC) 32.9 G/DL 32.7-35.1 N RED CELL DISTRIBUTION WIDTH (test code = RDW) 12.6 % 12.2-16.4 N PLATELET COUNT (test code = PLT) 213 K/mm3 155-337 N MEAN PLATELET VOLUME (test c ode = MPV) 9.5 fL 6.8-11.2 N Troponin [id number] 04:00:00* Test Item Value Reference Range Interpretation Comme nts Troponin I (test code = 28514-1) 0.05 0.00-0.03 Troponin I-Interpretation Reference : <0.03 [...] all <0.10 ng/mleffectively rules out AMI. Persistently increas ed troponin I values that are above theupper limit [...] toinvestigate for other cardiac conditions. 3. Serial sampli ng is critical for accurate diagnosis.[facility] [id number] 02:15:00* Test Item Value Reference Range Interpretation Comme [facility] White Blood Count (test code = 6690-2) 14.1 4.0-11.6 [facility] [id number] 02:15:00* Test Item Value Reference Range Interpretation Comme [facility] Red Blood Count (test code = 789-8) 4.06 3.51-5.34 [facility]wayHemoglobin2020-02-12 02:15:00* Test Item Value Reference Range Interpretation Comme [facility] Hemoglobin (test code = 718-7) 12.6 10.9-15.9 [facility]wayHematocrit2020-02-12 02:15:00* Test Item Value Reference Range Interpretation Comme [facility] Hematocrit (test code = 72387-2) 37.1 32.8-47.0 [facility] Corpuscular [id number] 02:15:00* Test Item Value Reference Range Interpretation Comme [facility] Mean Corpuscular Volume (mundo t code = 00302-0) 91.3 80.3-100.6 [facility] Corpuscular [id number] 02:15:00* Test Item Value Reference Range Interpretation Comme [facility] Mean Corpuscular Hemoglobin (test code = 65301-8) 30.9 26.4-34.5 [facility] Corpuscular Hgb Concent [id number] 02:15:00 * Test Item Value Reference Range Interpretation Comme nts Mean Corpuscular Hgb Concent Diff (test code = 45105-9) 33.9 32.0-36.0 [facility]way[facility] Cell Distribution [id number] 02:15:00* Test Item Value Reference Range Interpretation Comme nts Red Cell Distribution Width (test code = 69237-2) 13.2 11.6-16.3 [facility] ParkwayPlatelet [id number] 02:15:00* Test Item Value Reference Range Interpretation Comme nts Platelet Count (test code = 777-3) 230 155-428 [facility] Platelet [id number] 02:15:00* Test Item Value Reference Range Interpretation Comme [facility] Mean Platelet Volume (test c ode = 19438-0) 8.1 6.7-10.5 [facility] ParkwayGranulocytes (%)2019-07-22 02:15:00* Test Item Value Reference Range Interpretation Comme [facility] Granulocytes (%) (test code = 75931-7) 75.8 40.9-78. 1 [facility] ParkwayLymphocytes %2019-07-22 02:15:00* Test Item Value Reference Range Interpretation Comme nts Lymphocytes % (test code = 736-9) 14.9 13.7-46.9 [facility]wayMonocytes %2019-07-22 02:15:00* Test Item Value Reference Range Interpretation Comme [facility] Monocytes % (test code = 5905-5) 7.4 4.4-12.8 [facility]Eosinophils %2019-07-22 02:15:00* Test Item Value Reference Range Interpretation Comme nts Eosinophils % (test code = 713-8) 1.6 0.6-7.5 [facility]ophils %2019-07-22 02:15:00* Test Item Value Reference Range Interpretation Comme nts Basophils % (test code = 64161-2) 0.3 0.0-2.0 [facility]wayGranulocytes #2019-07-22 02:15:00* Test Item Value Reference Range Interpretation Comme nts Granulocytes # (test code = 02454-2) 10.7 1.6-9.1 [facility]wayLymphocytes #2019-07-22 02:15:00* Test Item Value Reference Range Interpretation Comme nts Lymphocytes # (test code = 63671-9) 2.1 0.6-5.4 [facility]wayMonocytes #2019-07-22 02:15:00* Test Item Value Reference Range Interpretation Comme nts Monocytes # (test code = 742-7) 1.1 0.2-1.5 [facility]Eosinophils #2019-07-22 02:15:00* Test Item Value Reference Range Interpretation Comme nts Eosinophils # (test code = 711-2) 0.2 0.0-0.9 [facility]ophils #2019-07-22 02:15:00* Test Item Value Reference Range Interpretation Comme nts Basophils # (test code = 52611-2) 0.0 0.0-0.2 [facility] ParkwayManual Meclprkqqbbl3999-35-01 02:15:00* Test Item Value Reference Range Interpretation Comme nts Manual Differential (test co de = Manual Differential) NO [facility] [id number] 02:15:00* Test Item Value Reference Range Interpretation Comme nts Sodium Level (test code = 2951-2) 136 135-144 [facility] ParkwayPotassium [id number] 02:15:00* Test Item Value Reference Range Interpretation Comme nts Potassium Level (test code = 2823-3) 3.8 3.5-5.1 [facility] ParkwayChloride [id number] 02:15:00* Test Item Value Reference Range Interpretation Comme nts Chloride Level (test code = 2075-0) 105 101-111 [facility] ParkwayCarbon Dioxide [id number] 02:15:00* Test Item Value Reference Range Interpretation Comme nts Carbon Dioxide Level (test c ode = 8-9) 25 22-32 [facility] ParkwayAnion [id number] 02:15:00* Test Item Value Reference Range Interpretation Comme nts Anion Gap (test code = 43458-9) 9.8 10-20 [facility] ParkwayGlucose [id number] 02:15:00* Test Item Value Reference Range Interpretation Comme [facility] Glucose Level (test code = 2345-7) 159 65-99 Prediabetes 100 to 125 mg/dlDiabetes 126 mg/dl or higher Prediabetes refers to individuals with plasma glucose levelsintermediate between those considered normal and thoseconsidered diabetic and is also referred to as impairedglucose tolerance (IGT) or impaired fasting glucose (IFG). [facility] Urea [id number] 02:15:00* Test Item Value Reference Range Interpretation Comme [facility] Blood Urea Nitrogen (test co de = 3094-0) 20 02-02 [facility]wayCreatinine2020-02-12 02:15:00* Test Item Value Reference Range Interpretation Comme [facility] Creatinine (test code = 2160-0) 1.1 0.44-1.00 [facility]EGFR [id number] 02:15:00* Test Item Value Reference Range Interpretation Comme [facility] EGFR Note (test code = 62147-9) 63.3 63.8-143.2 eGFR (Estimated Glomerular Filtration Rate) eGFR calculation value obtained using the [facility] CityQuadratic (MCQ) equation. The reportable reference range isrecommended to be greater than 60 ml/min/1.73m. This is anestimation of the patient's GFR and clinical correlation isrecommended. This eGFR calculation does not account for race. This resultmay differ from other equations available. [facility]wayCalcium Azobg4045-41-26 02:15:00* Test Item Value Reference Range Interpretation Comme nts Calcium Level (test code = 83156-3) 9.0 8.9-10.3 [facility] ParkwayAlbumin2020-02-12 02:15:00* Test Item Value Reference Range Interpretation Comme nts Albumin (test code = 1751-7) 4.2 3.5-5.0 [facility] ParkwayTotal Klmqnlyzn6838-81-26 02:15:00* Test Item Value Reference Range Interpretation Comme [facility] Total Bilirubin (test code = 1975-2) 0.2 0.2-1.2 [facility] ParkwayAlkaline Gzghcncyabw3730-43-94 02:15:00* Test Item Value Reference Range Interpretation Comme [facility] Alkaline Phosphatase (test c ode = 6768-6) 70 32-91 [facility] Jbjmcrt4122-23-04 02:15:00* Test Item Value Reference Range Interpretation Comme [facility] Total Protein (test code = 2885-2) 7.8 6.5-8.1 [facility] ParkwayAlanine Aminotransferase (ALT/SGPT)2019-07-22 02:15:00* Test Item Value Reference Range Interpretation Comme [facility] Alanine Aminotransferase (AL T/SGPT) (test code = 1742-6) 38 7-55 [facility] ParkwayAspartate Amino Transf (AST/SGOT)2019-07-22 02:15:00 * Test Item Value Reference Range Interpretation Comme [facility] Aspartate Amino Transf (AST/ SGOT) (test code = 1920-8) 43 15-41 [facility] ParkwayGlobulin2020-02-12 02:15:00* Test Item Value Reference Range Interpretation Comme [facility] Globulin (test code = 91479-6) 3.6 2.3-3.5 [facility] ParkwayAlbumin/Globulin Zpmhh8002-54-34 02:15:00* Test Item Value Reference Range Interpretation Comme [facility] Albumin/Globulin Ratio (test code = 1759-0) 1.2 1.2-2.2 [facility] ParkwayCreatine Ecvlty4667-30-71 02:15:00* Test Item Value Reference Range Interpretation Comme [facility] Creatine Kinase (test code = 2157-6) 43 38-234 [facility] ParkwayCreatine Kinase FX6800-86-72 02:15:00* Test Item Value Reference Range Interpretation Comme [facility] Creatine Kinase MB (test cod e = 33236-4) 1.15 0.6-6.3 [facility]wayMyoglobin2020-02-12 02:15:00* Test Item Value Reference Range Interpretation Comme [facility] Myoglobin (test code = 2639-3) 23 14.3-65.8 [facility] ParkwayB-Type Natriuretic Tsbfoxc3897-70-76 02:15:00* Test Item Value Reference Range Interpretation Comme [facility] B-Type Natriuretic Peptide ( test code = 30799-0) 365 0-100 [facility] ParkwayMagnesium Nvhwf3936-93-55 02:07:00* Test Item Value Reference Range Interpretation Comme [facility] Magnesium Level (test code = 68734-2) 2.0 1.8-2.5 [facility] ParkwayCreatine Kinase RT7306-87-58 01:47:00* Test Item Value Reference Range Interpretation Comme [facility] Creatine Kinase MB (test cod e = 80858-8) 1.01 0.6-6.3 [facility] ParkwayTroponin U0782-34-30 01:47:00* Test Item Value Reference Range Interpretation Comme [facility] Troponin I (test code = 85622-4) 0.02 0.00-0.03 Troponin I-Interpretation Reference : <0.03 ng/mL NEGATIVE 0.04 - 0.49 ng/mL EQUIVOCAL = OR > 0.5 ng/mL CONSISTENT WITH ACUTE MYOCARDIAL INJURY 98% of confirmed AMI patients will have at leastone valuein a set or serial specimens >0.50 ng/ml. 99% of normals are between 0.0 - 0.10 ng/ml. Serial samples on a patient that are all <0.10 ng/mleffectively rules out AMI. Persistently increa sed troponin I values that are above theupper limit of normal but below the threshold for AMIindicate mycardial injury but not necessarily an ischemicmechanism of injury. Troponin Important Points 1. Troponin is specific for myocardial injury but not forAMI. Elevated troponin levels above th e upper limit ofnormal but below the AMI cutoff may be present in cardiacinjury other then AMI and represent some degree of risk. 2. Elevated troponin levels inconsistent with patienthistory or clinical condition should be considered a sign toinvestigate for other cardiac conditions. 3. Serial sampling is critical for accurate diagnosis.[facility] ParkwayMyoglobin2019-01-26 01:47:00 * Test Item Value Reference Range Interpretation Comme nts Myoglobin (test code = 24821-6) 22 14.3-65.8 [facility] ParkwayB-Type Natriuretic Dzdczal7803-50-69 01:43:00* Test Item Value Reference Range Interpretation Comme nts B-Type Natriuretic Peptide ( test code = B-Type Natriuretic Peptide) 427 0-100 H [facility] ParkwayUrine SOW6505-01-30 01:40:00* Test Item Value Reference Range Interpretation Comme [facility] Urine RBC (test code = 14769-8) 3-5 0-2 A [facility] IJA6609-78-65 01:40:00* Test Item Value Reference Range Interpretation Comme [facility] Urine WBC (test code = 5821-4) 0-2 0-2 [facility] Epithelial Hwojc3212-21-23 01:40:00* Test Item Value Reference Range Interpretation Comme [facility] Urine Epithelial Cells (test code = 19218-1) 0-2 0-2 [facility] ParkwayUrine Lnrtejkv5574-98-13 01:40:00* Test Item Value Reference Range Interpretation Comme [facility] Urine Bacteria (test code = 99376-6) NEGATIVE NEG [facility] ParkwayBlood Urea Emufzdkn9661-15-27 01:37:00* Test Item Value Reference Range Interpretation Comme nts Blood Urea Nitrogen (test co de = 3094-0) 22 8-26 [facility] ParkwayCreatinine2019-01-26 01:37:00* Test Item Value Reference Range Interpretation Comme nts Creatinine (test code = 2160-0) 0.9 0.44-1.00 [facility] ParkwayEGFR Bobc6234-52-90 01:37:00* Test Item Value Reference Range Interpretation Comme nts EGFR Note (test code = 64585-9) 77.7 63.8-143.2 eGFR (Estimated Glomerular Filtration Rate) eGFR calculation value obtained using the [facility] CityQuadratic (Q) equation. The reportable reference range isrecommended to be greater than 60 ml/min/1.73m. This is anestimation of the patient's GFR and clinical correlation isrecommended. This eGFR calculation does not account for race. This resultmay differ from other equations available. [facility] ParkwayAlbumin2019-01-26 01:37:00* Test Item Value Reference Range Interpretation Comme [facility] Albumin (test code = 1751-7) 4.3 3.5-5.0 [facility] ParkwayTotal Rocyadzrl6106-89-48 01:37:00* Test Item Value Reference Range Interpretation Comme nts Total Bilirubin (test code = 1975-2) 0.2 0.2-1.2 [facility] ParkwayAlkaline Iofuzaktisz6690-17-14 01:37:00* Test Item Value Reference Range Interpretation Comme [facility] Alkaline Phosphatase (test c ode = 6768-6) 61 32-91 [facility]tal Whwajsc3692-09-93 01:37:00* Test Item Value Reference Range Interpretation Comme [facility] Total Protein (test code = 2885-2) 7.7 6.5-8.1 [facility] ParkwayAlanine Aminotransferase (ALT/SGPT)2018-07-05 01:37:00* Test Item Value Reference Range Interpretation Comme [facility] Alanine Aminotransferase (AL T/SGPT) (test code = 1742-6) 39 7-55 [facility] ParkwayAspartate Amino Transf (AST/SGOT)2018-07-05 01:37:00 * Test Item Value Reference Range Interpretation Comme [facility] Aspartate Amino Transf (AST/ SGOT) (test code = 1920-8) 36 15-41 [facility] ParkwayGlobulin2019-01-26 01:37:00* Test Item Value Reference Range Interpretation Comme nts Globulin (test code = 23191-8) 3.4 2.3-3.5 [facility] ParkwayAlbumin/Globulin Gdssw0315-71-52 01:37:00* Test Item Value Reference Range Interpretation Comme [facility] Albumin/Globulin Ratio (test code = 1759-0) 1.3 1.2-2.2 [facility] ParkwayCreatine Hdmweo6518-90-40 01:37:00* Test Item Value Reference Range Interpretation Comme [facility] Creatine Kinase (test code = 2157-6) 43 38-234 [facility] ParkwayUrine Mkwuq7364-45-53 01:37:00* Test Item Value Reference Range Interpretation Comme nts Urine Color (test code = 5778-6) YELLOW YELLOW [facility] Pywnvqzhug5349-46-00 01:37:00* Test Item Value Reference Range Interpretation Comme nts Urine Appearance (test code = 5767-9) CLEAR CLEAR [facility] Gyufhra7080-43-36 01:37:00* Test Item Value Reference Range Interpretation Comme nts Urine Glucose (test code = 5792-7) NEGATIVE NEGATIVE [facility] Xjvfmjwjr5846-15-21 01:37:00* Test Item Value Reference Range Interpretation Comme nts Urine Bilirubin (test code = 1978-6) NEGATIVE NEGATIVE [facility] Lecgrtt0919-58-52 01:37:00* Test Item Value Reference Range Interpretation Comme nts Urine Ketones (test code = 5797-6) NEGATIVE NEGATIVE [facility] Specific Izyhwig5182-66-49 01:37:00* Test Item Value Reference Range Interpretation Comme nts Urine Specific Waka (test code = 2965-2) 1.010 1.002-1.030 [facility] Gmpdy7649-43-20 01:37:00* Test Item Value Reference Range Interpretation Comme nts Urine Blood (test code = 47580-7) SMALL NEGATIVE A [facility] cJ5439-87-14 01:37:00* Test Item Value Reference Range Interpretation Comme nts Urine pH (test code = 5803-2) 6.0 4.5-8.0 [facility] Xuqzaib8155-73-46 01:37:00* Test Item Value Reference Range Interpretation Comme nts Urine Protein (test code = 2888-6) NEGATIVE NEGATIVE [facility] Qnrfytndmveb4611-00-95 01:37:00* Test Item Value Reference Range Interpretation Comme nts Urine Urobilinogen (test cod e = 97270-0) 0.2 >0.2 [facility] Ynjmabp7513-08-74 01:37:00* Test Item Value Reference Range Interpretation Comme nts Urine Nitrite (test code = 5802-4) NEGATIVE NEGATIVE [facility] Leukocyte Wvytxqau0851-90-36 01:37:00* Test Item Value Reference Range Interpretation Comme nts Urine Leukocyte Esterase (te st code = 5799-2) NEGATIVE NEGATIVE [facility] ParkwayUrine Microscopic Wkcysdehf7351-48-53 01:37:00* Test Item Value Reference Range Interpretation Comme [facility] Urine Microscopic Indicated (test code = Urine Microscopic Indicated) YES NO [facility] ParkwayProthrombin Goqg9759-70-76 01:30:00* Test Item Value Reference Range Interpretation Comme [facility] Prothrombin Time (test code = 5964-2) 14.3 10.0-12.9 H [facility] ParkwayINR International Normalized Vyjpt8969-75-47 01:30:00* Test Item Value Reference Range Interpretation Comme [facility] INR International Normalized Ratio (test code = 6301-6) 1.3 0.91-1.15 H THE INR IS TO BE USED ONLY [...] 2.5-3.5 Thrombosis and Antiphospholipid syndrome Prevention of recurrentMI Sixth ACCP Consensus Conference on Antithrombotic Therapy,Chest 2001; 119:Supplement 8-21.[facility] ParkwayActivated Partial Thromboplast Ikta8293-42-75 01:30:00* Test Item Value Reference Range Interpretation Comme [facility] Activated Partial Thrombopla st Time (test code = 3173-2) 44.3 25.1-36.5 [facility] Jinac1422-37-32 01:29:00* Test Item Value Reference Range Interpretation Comme [facility] Sodium Level (test code = 2951-2) 139 135-144 [facility] ParkwayPotassium Ahpob9584-88-10 01:29:00* Test Item Value Reference Range Interpretation Comme [facility] Potassium Level (test code = 2823-3) 3.1 3.5-5.1 L [facility] ParkwayChloride Znawe4351-64-95 01:29:00* Test Item Value Reference Range Interpretation Comme [facility] Chloride Level (test code = 2075-0) 104 101-111 [facility] ParkwayCarbon Dioxide Msieg3415-00-31 01:29:00* Test Item Value Reference Range Interpretation Comme nts Carbon Dioxide Level (test c ode = 2028-9) 29 22-32 [facility] ParkwayAnion Fol7858-79-61 01:29:00* Test Item Value Reference Range Interpretation Comme nts Anion Gap (test code = 24383-5) 9.1 10-20 L [facility] ParkwayGlucose Ytejg9803-02-59 01:29:00* Test Item Value Reference Range Interpretation Comme nts Glucose Level (test code = 2345-7) 117 65-99 H Prediabetes 100 to 125 mg/dlDiabetes 126 mg/dl or higher Prediabetes refers to individuals with plasma glucose levelsintermediate between those considered normal and thoseconsidered diabetic and is also referred to as impairedglucose tolerance (IGT) or impaired fasting glucose (IFG). [facility] ParkwayCalcium Qpjtn8792-86-49 01:29:00* Test Item Value Reference Range Interpretation Comme nts Calcium Level (test code = 98674-7) 9.2 8.9-10.3 [facility] ParkwayWhite Blood Phxqz7120-54-35 01:20:00* Test Item Value Reference Range Interpretation Comme nts White Blood Count (test code = 6690-2) 12.3 4.8-10.8 H [facility] ParkwayRed Blood Dqfam9135-50-20 01:20:00* Test Item Value Reference Range Interpretation Comme nts Red Blood Count (test code = 789-8) 3.93 3.70-5.40 [facility] ParkwayHemoglobin2019-01-26 01:20:00* Test Item Value Reference Range Interpretation Comme nts Hemoglobin (test code = 718-7) 12.6 12.0-16.0 [facility] ParkwayHematocrit2019-01-26 01:20:00* Test Item Value Reference Range Interpretation Comme [facility] Hematocrit (test code = 58616-4) 36.3 37.0-47.0 L [facility] Corpuscular Lufifs2723-29-73 01:20:00* Test Item Value Reference Range Interpretation Comme nts Mean Corpuscular Volume (mundo t code = 24275-7) 92.3 80.0-100.0 [facility] Corpuscular Naaufwntgv8922-75-96 01:20:00* Test Item Value Reference Range Interpretation Comme nts Mean Corpuscular Hemoglobin (test code = 785-6) 32.2 27.0-31.0 H [facility] Corpuscular Hgb Concent Pnhe3648-25-44 01:20:00 * Test Item Value Reference Range Interpretation Comme [facility] Mean Corpuscular Hgb Concent Diff (test code = 786-4) 34.8 32.0-36.0 [facility] ParkwayRed Cell Distribution Afytd4716-12-23 01:20:00* Test Item Value Reference Range Interpretation Comme [facility] Red Cell Distribution Width (test code = 788-0) 13.0 11.5-14.5 [facility] ParkwayPlatelet Lnvss5300-07-28 01:20:00* Test Item Value Reference Range Interpretation Comme [facility] Platelet Count (test code = 777-3) 235 130-400 [facility] Platelet Twpvag0922-57-27 01:20:00* Test Item Value Reference Range Interpretation Comme [facility] Mean Platelet Volume (test c ode = 37310-2) 7.6 [facility] ParkwayGranulocytes (%)2018-07-05 01:20:00* Test Item Value Reference Range Interpretation Comme [facility] Granulocytes (%) (test code = 26809-7) 74.2 50.0-75. 0 [facility] ParkwayLymphocytes %2018-07-05 01:20:00* Test Item Value Reference Range Interpretation Comme nts Lymphocytes % (test code = 736-9) 14.8 20.0-40.0 L [facility] ParkwayMonocytes %2018-07-05 01:20:00* Test Item Value Reference Range Interpretation Comme nts Monocytes % (test code = 5905-5) 8.7 0.0-15.0 [facility]wayEosinophils %2018-07-05 01:20:00* Test Item Value Reference Range Interpretation Comme nts Eosinophils % (test code = 713-8) 1.9 0.0-10.0 [facility] ParkwayBasophils %2018-07-05 01:20:00* Test Item Value Reference Range Interpretation Comme nts Basophils % (test code = 60548-2) 0.4 0.0-2.0 [facility] ParkwayGranulocytes #2018-07-05 01:20:00* Test Item Value Reference Range Interpretation Comme nts Granulocytes # (test code = 21140-9) 9.1 1.8-6.4 H [facility] ParkwayLymphocytes #2018-07-05 01:20:00* Test Item Value Reference Range Interpretation Comme nts Lymphocytes # (test code = 66073-8) 1.8 1.2-3.6 [facility] HospitalMonocytes #2018-07-05 01:20:00* Test Item Value Reference Range Interpretation Comme nts Monocytes # (test code = 742-7) 1.1 0.3-0.9 H [facility] HospitalEosinophils #2018-07-05 01:20:00* Test Item Value Reference Range Interpretation Comme nts Eosinophils # (test code = 711-2) 0.2 0.0-0.5 [facility] ParkwayBasophils #2018-07-05 01:20:00* Test Item Value Reference Range Interpretation Comme nts Basophils # (test code = 65543-4) 0.1 0.0-0.2 [facility] ParkwayManual Uxteqrrskvud0253-03-03 01:20:00* Test Item Value Reference Range Interpretation Comme nts Manual Differential (test co de = Manual Differential) NO [facility] History and Physical Notes Date/Time Note Provider Source 2022-04-18 13:33:00 AWgKxvfjrdRaB5fhyr/a lQA7/orOpsaIZu4zLXaoiK w9XA0YalGEIHXNrj8kfR0q3685-04-18D46:33:00S ummary: MRI SAFETY ALERT // PACEMAKER IMPLANTED // [facility] (MR UNSAFE) THIS PATIENT HAS AN IMPLANTED PACEMAKER SYSTEM THAT IS MR UNSAFE (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/BREEN: [phone]) 27391-2Qbvcbkv and physical wixsSD7580-53-30C94:33:54History and physical noteTXT1.2.840.952155.1.13.104.2.7.2.34581 9|[id number] for patient vlzi32051-3Jhwxfmr and physical noteLNNARRATIVEFormatted C-CDA narrative text[address] Ptql[id number] XTMIFVJKAYZNQJEM8650-20-50B37:33:541.2.840 .156668.1.72.3.15|1.2.840.011870.1.13.104. 2.7.2.727879_[id number] [facility] Notes Date/Time Note Provider Source 2023-07-10 16:29:24 4+Carrington/yT4uhQbfcSc1TXcZqx29Gb0ZLynuzYl Zo cANh+BDyApSY72SFW+myx40115-94-21U96:29:24F ormatting of this note might be different from the original.Called and spoke to Jennie, faxed recent labs, confirmation received. Will route to provider to review labs as well. Cinthia Bradley MA 07/10/2023 4:32 PM 34599-7Opgfdlcey encounter YmriGY0893-48-15J74:32:52Telephone encounter NoteTXT1.2.840.736076.1.13.104.2.7.2.29034 9|[id number] for patient ukwq29499-8RwifZDMKRUCXNAEZxdzjtkov C-CDA narrative [id number] Davila [address] [id number] ZHOUVZTGKNYGZZRNFYET3729-48-50N94:32:521.2.840 .383737.1.72.3.15|1.2.840.759795.1.13.104. 2.7.2.727879_[id number] Cinthia Bradley [facility] 2023-07-10 16:13:52 fwjCzkuPj372px5RIQdQMlNUxijJpDXgf1fa7pnn n7 bJYhhtdHP4+1iHu2Dp3F0h0025-76-00U66:13:52F ormatting of this note might be different from the original.Sirena Purdy is a 87 year old femaleDiana called and states that she is needing recent labs to be sent to pt eating disorder psychologist. Pt has an appointment with them Saturday at 11 AM. Please advise.[facility]Fax: Ftaborylijebgc signed by Rachel Brantley at 07/10/2023 4:16 PM ASA64140-0Sqynuygom encounter BdohCB1153-85-94B99:16:07Telephone encounter NoteTXT1.2.840.524234.1.13.104.2.7.2.01790 9|[id number] for patient suun28762-7XmxkTHHCTQPUDMSOfxccqhjt C-CDA narrative [id number] R Marroquin[address] [id number] FPWWKECFCNMWZYKJ7560-14-03L20:16:071.2.840 .953538.1.72.3.15|1.2.840.289023.1.13.104. 2.7.2.727879_[id number] Rachel Brantley [facility] 2023-07-10 14:21:36 2S8W0xZk1Fmdwx8OZ0Ja2nL+21mR67oaIkdjFVYx dL PiYSTk03UI6q9QkBcdGfYl9516-61-72K78:21:36F ormatting of this note might be different from the original.Spoke with patient daughter (Jennie). Jennie informed me patient had no more swelling or pain and that's the reason she was not taken to ER. Patient is also being scheduled with her eating disorder psychologist who is an external provider. Jennie is going to keep appointment 08-09-[address] Brooks for now but if she sees her mother is starting with same symptoms, she would take patient to ER for further evaluation. 42831-9Yzpvqfaqr encounter LlhlDN5164-65-02H17:24:17Telephone encounter NoteTXT1.2.840.514130.1.13.104.2.7.2.67974 9|[id number] for patient ifek24592-9TizeFFJBVUBCVZRJvgndmbnv C-CDA narrative textUT[address] AdklTd[id number] PUGBNJKUBHOSMGWI2070-52-54N41:24:171.2.840 .941124.1.72.3.15|1.2.840.991866.1.13.104. 2.7.2.727879_[id number] [facility] 2023-07-10 14:11:14 rfcku20C5pi59nrOVovtPIbRyuyvnptrJxGP44yU gI yCCd0r2nUt2YRX9rkzDX+t8150-60-55F76:11:14F ormatting of this note might be different from the original.BNP is elevatedThis is a cardiac enzyme that can be elevated in things like fluid overload and heart failureIf there is increased fluid around her heart this would explain why she is short of breath with exertionIf she is still having chest pain or shortness of breath I would recommend the LIZ do not see she went to ER as states yesterdayIf she still refuses strongly advise sooner appointment with next available appointment in office.She will also need to see cardiology STAT 44145-4Kmduudsid encounter DouqIW5798-62-36T90:13:03Telephone encounter NoteTXT1.2.840.193346.1.13.104.2.7.2.79355 9|[id number] for patient dgjs62716-8CqlcLYQWISATPKKXsgqzdaed C-CDA narrative textUT[address] RiumJhwqcfzkuIpkgktbulAWUI1537195833ITAYQK RFUYAKGYANJFWXQL5641-44-49Z46:13:031.2.840 .772230.1.72.3.15|1.2.840.922565.1.13.104. 2.7.2.727879_[id number] [facility] 2023-07-09 15:14:00 8aSK0Cnm2YDIH1IKoagGJPRtJuQ+UfTJcdyBQwOG Uz gF1qYjNm37Aw4vfrpsg0BU4614-70-04E26:14:00F ormatting of this note might be different from the original.Regarding: pt swollen on both feet & having "pulling sensation" on chest----- Message from Jazmin Zimmerman sent at 07/09/2023 3:12 PM [employer] -----[facility] [id number] y/o Fpt swollen on both feet & having "pulling sensation" on chestpulling sensation on chest x comes and goes, swelling on feet cuple days ago. 65623-6Jrsarssqk encounter IhruLZ5054-69-52B62:14:20Telephone encounter NoteTXT1.2.840.975124.1.13.104.2.7.2.65348 9|[id number] for patient qckd77996-2TzawIHAUSTSVHDZLyljleqww C-CDA narrative [id number] G Cecil RNK[address] Bv[id number] PCDPSQOZYVUKLIAT7665-68-80C41:14:201.2.840 .414763.1.72.3.15|1.2.840.515004.1.13.104. 2.7.2.727879_[id number] Emy Holman Cecil RN [facility] 2023-07-09 15:14:00 v64SQ2MmwRlsjgaDvFVlabKcAFN6So9BNP+LUjSx gE Ap+PDc4zfw8VV8veaNzcpV8383-89-59B95:14:00F ormatting of this note might be different from the original.Adult Triage AssessmentLast Clinic Visit: Today for labsPrimary Symptom: When she lays down, and turns in bed she has a pinching, "like a wire poking" , for a month or so ,Onset / Duration: About 2 days ago has noted increased swelling in calves and feet, feet are achingLocation / Description: bilateral low extremitiesPain / Severity: 0/10 No new painAssociated Symptoms: Worsening shortness of breath with ambulationFever / Method: NoneHydration: Drinking fluids as normal, voiding as normal, no dysuriaTreatment so far: elevating helpsEffect on ADL's: Had to have a wheelchair when getting labs today because of shortness of breathLMP: NAPre-existing condition / Immunocompromised: Hypertension, shortness of breathReason for Disposition[1] Difficulty breathing with exertion (e.g., walking) AND [2] new onset or worseningProtocols used: Leg Swelling and Ugbnd-TRTIP-BMVcxqyqyv call to patient's daughter who states she is only wanting a sooner appointment. The patient had labs drawn today, and became more "winded" today than usual while walking to the lab. States for the last 2-3 days patient's feet and lower legs have become more swollen. She has no shortness of breath at rest, but does seem to be worsening with exertion. Patient and daughter decline ER today, would like to follow up with PCP to review labs drawn today, and be evaluated. Informed that I will forward this message to the PCP clinic. The chest pinching she is describing patient feels it may be a wire or related to her pacemaker. Her eating disorder psychologist is [facility]. Advised to follow up with them for this concern. The daughter informs me that if she and the patient feel her breathing or swelling is becoming worse, she will take her to the ER for evaluation.Emy Jacob RNUNM Children's Hospital Nurse 94476-0Oqknyjfjk encounter NcwsYV4839-91-50V71:46:20Telephone encounter NoteTXT1.2.840.986293.1.13.104.2.7.2.77187 9|[id number] for patient isbl33020-8TfjgRUXJWYNHZKVUwevwntro C-CDA narrative text[address] Kp[id number] LOSVFMKNQHBDOOFU0393-11-91B15:46:201.2.840 .133140.1.72.3.15|1.2.840.359817.1.13.104. 2.7.2.727879_[id number] [facility] 2023-07-09 15:14:00 qZJ13EvtilYeJ3tMNAnEGrvB0D/AfBQxmsH8n2Dh 7J pQ7Kgq2Cda9lxF10eFTy5d5904-67-94A86:14:00F ormatting of this note might be different from the original.I would recommend ER for chest pain for evaluation.If they decline I would recommend to see the soonest Dr. Brooks or Dr. Reynoso can see the patientI have added a BNP to the labs doneStrongly advise ER for chest pain, shortness of breath, swelling, or any concerns 13785-9Dbwsvbkww encounter SdskFE4220-69-30Z96:06:34Telephone encounter NoteTXT1.2.840.463796.1.13.104.2.7.2.83514 9|[id number] for patient psho59460-0FttrRXWXRVZOUTFKhumwmlzj C-CDA narrative [id number] RIOISBKESSEIORJU5354-24-08U76:06:341.2.840 .304334.1.72.3.15|1.2.840.124876.1.13.104. 2.7.2.727879_[id number] [facility] 2023-07-09 15:14:00 YXyBdPbWNDoCCvgHp0IPZwIr7WUs5APRaV7RgGyh lY NFPQEqX+PVTqc0wXnghwdv4674-78-53K79:14:00F ormatting of this note might be different from the original.Spoke with patient daughter and informed MADELINE Hinkle recommend ER for further evaluation. Daughter understood and will take patient. 79706-5Mnwajzxuh encounter BtnjEH4479-69-70P08:13:45Telephone encounter NoteTXT1.2.840.205908.1.13.104.2.7.2.68906 9|[id number] for patient pnal88364-8PrqaGFUGUJWCNBNKwkpzyuzr C-CDA narrative Schvey[id number] EFAEGXNBXEDZNPQQ7703-79-57Q27:13:451.2.840 .591297.1.72.3.15|1.2.840.921871.1.13.104. 2.7.2.727879_[id number] [facility] 2023-07-09 12:15:00 MwXIiwtJSrypZH8uW0Rs9SsE9wDz59aanE1/RmkS TGFFTBBe5b4Glihb9haJIN1995-05-08Y79:15:00F ormatting of this note is different from the original.Images from the original note were not included.Venipuncture collection performed by clean technique on the right anticubitus. Total of 1 attempts were made. Slight pressure and a bandage/dressing were applied to the site(s). The patient experienced no complications. The following specimens were processed according to instructions and sent to [facility] laboratories per lab order on 07/09/2023:LT BLUESST 2REDLAV 1PPTDK GREEN (LiHep)DK GREEN (SodH)GRAYDK BLUE (K2)DK BLUE (S)ACDBlood CultureNIPT/NTDPatient has been identified by and name and was provided with cup, antiseptic towelette, and clean catch instructions. 1 urine specimen(s) sent.Unpreserved 1Urine CultureAptima tubeOther urine 88092-5Lbwkw YxmsXN7334-14-80N32:21:53Nurse NoteTXT1.2.840.757515.1.13.104.2.7.2.10005 9|[id number] for patient ymgj53507-2Lqgza NoteLNNARRATIVEFormatted C-CDA narrative textUT[address] Sb[id number] ILAFDAOYYIJEVQLB4765-45-34X32:21:531.2.840 .032564.1.72.3.15|1.2.840.427145.1.13.104. 2.7.2.727879_[id number] [facility] 2023-06-25 08:45:09 4q0mt/f+sZ8M8+VFa4mrLO4/LFr8pgsVy6QfbxtB X1 XJcBjalJGUmLN10o4IpQz83194-76-53T51:45:09F ormatting of this note is different from the original.Images from the original note were not included.Requested RenewalsName from pharmacy: FAMOTIDINE 20MGWill file in chart as: FAMOTIDINE 20 mg tabletSig: TAKE 1 TABLET BY MOUTH 2 TIMES DAILY IN THE MORNING & IN THE EVENINGDisp: 180 tablet Refills: 0Start: 06/24/2023lass: eRXFor: Radiation gastritisTo pharmacy: 06/24/2023 1:08:04 PM* * N O T I C E * * Last quantity doesn't match original quantityLast ordered: 2 months ago (04/08/2023) by Jerardo Chang refill: 4Rx #: [id number]: Antiulcer - H2 Antagonists Tuixgk8906/24/2023 01:10 PMProtocol Details Valid encounter within last 12 monthseGFR in normal range and within 360 daysCr in normal range and within 360 daysTo be filled at: [facility] 21634-2Bcdnhhgwz encounter LoeoNQ7981-11-77M85:45:19Telephone encounter NoteTXT1.2.840.047653.1.13.104.2.7.2.86897 9|[id number] for patient qjdn95179-1XmsbOOHIBZPGROYKdjvpbplh C-CDA narrative textUT[address] FtdwVohmqcmdiXkqbabkfdEYAI8129791396UNZHOX YIKDUCJAWUVNVFOK4473-86-86A39:45:191.2.840 .318278.1.72.3.15|1.2.840.776110.1.13.104. 2.7.2.727879_[id number] [facility] 2023-05-30 15:31:21 MK7nqGC9StRgaMEiLejJkH+4QiQgY8sL3DGuZd9n 8t 2pPm7azdpScygI7UfuQHy29928-46-40U95:31:21F ormatting of this note is different from the original.Images from the original note were not included.Requested RenewalsName from pharmacy: FEXOFENADINE 60MGWill file in chart as: FEXOFENADINE 60 mg tabletPossible duplicate: Cainting to review recent actions on this medicationSig: TAKE 1 TABLET BY MOUTH 2 TIMES DAILY IN THE MORNING & IN THE EVENING *NEEDS APPT*Disp: 30 tablet Refills: 0Start: 05/30/2023lass: eRXNon-formulary For: Subacute maxillary sinusitisTo pharmacy: 05/30/2023 12:24:01 PMLast ordered: 2 weeks ago (05/10/2023) by Jerardo Chang refill: 05/13/2023Rx #: [id number] Sfwvtn7305/30/2023 12:31 PMProtocol Details Valid encounter within last 12 monthsTo be filled at: [facility], [address] patient need apportionment? 92086-7Efteyflgr encounter ItrsIZ5003-30-08Z91:32:06Telephone encounter NoteTXT1.2.840.354415.1.13.104.2.7.2.15662 9|[id number] for patient pcea47107-1KllmARDGISSRMTSScqcojupa C-CDA narrative textUT[address] FuiyMiwqafiwkUzlwqalqoASND9636184680QGOOHJ YYBZBEZGOEAZGYUQ1745-85-79H06:32:061.2.840 .045583.1.72.3.15|1.2.840.098033.1.13.104. 2.7.2.727879_[id number] [facility] 2023-02-21 12:58:28 HNIUcr0BHlvHnWdfogIHZIKaWuVX9EQ2MOyaTnHV q3 LOevQO+zUFeTQUimi8eAXy8854-76-07G30:58:28F ormatting of this note might be different from the original.Left VM letting her know she could decrease the dose of Depakote to 250mg bid to see if pt tolerates that better. If that is not effective or if they are not wanting to do that to let us know and could f/u with provider for different medication options. Will notify provider. If this is effective new Rx for 250mg will need to be placed d/t [place]. 22075-0Nxgcliuas encounter RzevFN1092-35-97O02:10:33Telephone encounter NoteTXT1.2.840.172390.1.13.104.2.7.2.01823 9|[id number] for patient fqmn45921-7ZnbnCUPALQPQQJ[address] TyovGwmfvrwtvHldtugnrlXMPR6326897317AXJPKQ CYPJOFCRYSZWIHPO9305-15-29E31:10:331.2.840 .845449.1.72.3.15|1.2.840.267234.1.13.104. 2.7.2.727879_[id number] [facility] 2023-02-18 14:15:23 zD6Cx3Koyvh6fcUVciBC0F81ewEko1U2xvPmjC2R /4 Y2+xL4HkFoD2U9qp0DO95n5727-21-93P81:15:23F ormatting of this note might be different from the original.Sirena Purdy is a 87 year old femalePatient daughter is calling requesting to speak to the nurse for medical advise on medication prescribed on 01/25. Pt daughter states that she believes this medication to control her behavior is way too strong and would like to consider other options. Please advise Thank you 07799-4Pfzdbxorx encounter XygcUT0793-51-42F85:17:37Telephone encounter NoteTXT1.2.840.328486.1.13.104.2.7.2.21407 9|[id number] for patient cufb71049-5WoilTZ831182989Rxdfjqi Tsuruta Moreno [id number] YIJOOKJJLAIZMZBK0740-28-45J67:17:371.2.840 .229671.1.72.3.15|1.2.840.036191.1.13.104. 2.7.2.727879_[id number] Damaris Ayers V [facility] 2023-02-01 16:48:13 RJzGGZwGFJ32TT1eG33sInFyCsWstTrh9EnoHqNg +Q hbMoXtYEB3kdIKntvn9iEg0658-12-50H15:48:13F ormatting of this note might be different from the original.Referral faxed to Dr. Bolton, [phone] signed by Sarah Arce RN at 02/01/2023 4:48 PM CUR40070-7Djydphner encounter RojbOT9482-83-72K66:48:37Telephone encounter NoteTXT1.2.840.950724.1.13.104.2.7.2.27646 9|[id number] for patient nxbb07942-4TasyUH874743901Ebtjxq L Reid RN[id number] IAVCGUNYAWLHXRIM6944-27-92Z73:48:371.2.840 .527363.1.72.3.15|1.2.840.504907.1.13.104. 2.7.2.727879_[id number] Sarah Arce RN [facility] 2023-01-28 14:36:16 VhDAbcqOELvXflCuebvXp4mezgzyvqXLbUwRMTW6 zX S9zXjDD7FItgwMuTAZHKDg8866-17-27O14:36:16F ormatting of this note might be different from the original.Patient daughter calling for status of referral to:Dr. Lauren Bolton, [address] [place] [address] 749[address]Pr#[phone] #[phone] signed by Nciole Maria at 01/28/2023 2:39 PM VJR51229-3Umcwvxqal encounter MxquGP4856-58-96R17:39:51Telephone encounter NoteTXT1.2.840.412916.1.13.104.2.7.2.12691 9|[id number] for patient ukvk22775-1RrrsGM714858281Pucpo K [address] YoanKpwewcfgrKwtwstbdwURBN4879548026IGMMED FGEINGKCYVNFJFWA9826-11-45L37:39:511.2.840 .341150.1.72.3.15|1.2.840.963634.1.13.104. 2.7.2.727879_[id number] Nicole Maria [facility] 2023-01-25 14:01:10 5Tsz8qoPfkPlvsjrrzlKVNOWYPar9WTSnusVTTlo vq 09v/4qb/YHWDfme7Vw5yKX1490-39-76I20:01:10F ormatting of this note might be different from the original.Noted. Pt was seen in office at her appt. 22798-7Mknsqjwry encounter NrmzQG8022-79-75I27:01:25Telephone encounter NoteTXT1.2.840.616069.1.13.104.2.7.2.33683 9|[id number] for patient vtzv75435-6IhzfUMOECELKBT[id number] GGMXVOISGPBYYLFP8117-43-83H26:01:251.2.840 .123345.1.72.3.15|1.2.840.885800.1.13.104. 2.7.2.727879_[id number] [facility] 2023-01-25 10:26:30 sf+xljhQ5nMGpJuOF9Xtzto8D+iwoDuGVpP3hvN9 2i 83L/b/Efa3pWV18l4wG8OM9028-63-39P77:26:30F ormatting of this note might be different from the original.Sirena Purdy is a 87 year old female Jennie daughter calling states that memory loss and bursts of anger isn't getting any better. This morning the neighbor pulled into the driveway to park across the street (daughter is aware of this) and patient came outside with a gun to let them know that they were protected. Jennie states that it was an unreasonable gesture.Patient cusses at Jennie often if she's proven wrong on something. She mentions that patient also moves things and often misplaces them and can't find them. 76932-1Nxfuzmxsg encounter RndyCP7368-43-43Y98:30:37Telephone encounter NoteTXT1.2.840.690533.1.13.104.2.7.2.25354 9|[id number] for patient hyed01870-5LdsdVZ191410421Lqtxovv M. GarciaUT[address] StreetTXTX[address]7555[place] ZHIQXRDREOQSAUWM6190-14-25Z60:30:371.2.840 .153830.1.72.3.15|1.2.840.320789.1.13.104. 2.7.2.727879_[id number] Sherrie MarshGena Sandoval [facility] 2023-01-15 20:37:22 pdAiyX9rxZSPQtNkxTCwDZN5ZBoJoR311o+mzp9t aL fktuOfqKsLKQ2Hq63E3e7I8429-46-90C40:37:22F ormatting of this note might be different from the original.Saw patient today 92240-6Npuxflaze encounter TxarPX7134-59-92L08:37:32Telephone encounter NoteTXT1.2.840.369101.1.13.104.2.7.2.31387 9|[id number] for patient rxif74470-0UzjsJSVMOJHKYN[address] OfekIxrguymunRswgrsjprUUVI0212613243AKIVSI IEYMASCITTALBHMA9659-59-74J58:37:321.2.840 .369146.1.72.3.15|1.2.840.534773.1.13.104. 2.7.2.727879_[id number] [facility] 2023-01-15 15:09:42 S3VFjFscvQGXoXAnTM9TWawrmpTSGkhto3eeKZbK 5P 6wOphg9dKV1ffGbiiP3YWV4991-19-95A32:09:42F ormatting of this note might be different from the original.Would you like patient to come back in? Or do you want to send something? 39865-4Jwexfsque encounter NkkjWM4056-19-54W59:10:07Telephone encounter NoteTXT1.2.840.381021.1.13.104.2.7.2.81562 9|[id number] for patient jkxn34885-6QlzlJVOI-JMHANE MIDLEVEL PROVIDERNP-FAMILY MIDLEVEL PROVIDER[address] [id number] PFZJWUAWSFBFUBQO6625-36-21H74:10:071.2.840 .439596.1.72.3.15|1.2.840.985665.1.13.104. 2.7.2.727879_[id number] GROUP PROGRAM MANAGER-FAMILY MIDLEVEL PROVIDER [facility] 2023-01-14 14:48:02 qPtP6+SdE2fUQp+eLKTbHUHiKSwGWjWqomY+IVkT ub 3pPWLTgLYvcvAytXroqj+w6452-31-93E44:48:02F ormatting of this note might be different from the original.Patient states the medication prescribed is not working, please advise and see previous message. 13701-7Bfkjmgbik encounter AixlWD7627-71-19N64:50:19Telephone encounter NoteTXT1.2.840.139075.1.13.104.2.7.2.02952 9|[id number] for patient aihk13841-9EbkpTS508275868Qoelswe M Mosley[address]TXTX[address]7555[place] YCUDFLBCYNSMJIAY3218-95-54T78:50:191.2.840 .792533.1.72.3.15|1.2.840.494314.1.13.104. 2.7.2.727879_[id number] Chica Reilly [facility] 2023-01-11 13:50:26 e6tPngSJRW89e++drxTrpUbeXZbUVsirCKXRKR+/ gw 2wUePkC42Og7j26skaXX6S5824-58-09Z21:50:26F ormatting of this note might be different from the original.Pt calling is because she had appointment on 01/03 but the medication she ws prescribed isn't working. Pt would like a stronger or different antibiotic be sent so she can feel better. 16350-4Fjkmevcli encounter HzafIU5317-78-20X33:53:09Telephone encounter NoteTXT1.2.840.902047.1.13.104.2.7.2.65743 9|[id number] for patient wrxd16321-5LkovIH919859629Insxe C Briggs[address] XzeeJiopubppyQtsesdwsvJUER3634208330FRRYVL ZOOGNFMOVLXMWLJH3290-29-32S83:53:091.2.840 .030728.1.72.3.15|1.2.840.360055.1.13.104. 2.7.2.727879_[id number] Chago Linares [facility] 2022-12-26 17:21:59 K+TW+57iqr2spZIrWGwgWo/iaAgdG+x8kfYnS7Mv HI dIMv84LrPEg7gdfQ1gKJBk3921-13-96Q41:21:59F ormatting of this note is different from the original.Informed daughter that no abnormalities were seen on abdominal US:MADELINE Hinkle 12/21/2022 12:35 PM CDT IMPRESSIONNo sonographic abnormality Please make an appointment with me to discuss, if symptoms are not improved or worsened Daughter states she would like to make an appointment to come in sooner to discuss BP spikes, but will call back tomorrow to schedule at her convenience. 13837-3Nmjlhsskv encounter VtmlCS7592-64-68F66:24:37Telephone encounter NoteTXT1.2.840.091839.1.13.104.2.7.2.49723 9|[id number] for patient fnjk870220189Ahbcvmv A Virgilio [address]TXTX[address]7555[place] KCGFSELFFHYDFQRQ5035-24-23J94:24:371.2.840 .307404.1.72.3.15|1.2.840.024414.1.13.104. 2.7.2.727879_[id number] Roslyn Barrios Virgilio [facility] 2022-12-25 10:56:52 ZlzBdNp33hLjFalVue/QXNlf/1ydEo3bdsq5xN87 eO Znf3Uj6Xk9GxaFrUFc4LhJ3535-87-23W05:56:52F ormatting of this note might be different from the original.Daughter is calling regards to below phone encounter and also stating the medication given to her on the last office visit is causing her to have low blood pressure. hydrALAZINE 50 mg tablet Daughter stated the whole tablet was causing her too low and now she said cut in half an now doing better on it. Daughter is wanting to know if DR BROOKS wants her to continue the same way on the dosage. Daughter states pt is fine but just wanted to notify of changes. 05578-0Vfumxcssd encounter PdohMF5536-05-85T17:02:03Telephone encounter NoteTXT1.2.840.384337.1.13.104.2.7.2.24689 9|[id number] for patient bsru00183912Sabfu J Barnshaw[address]TXTX[address]7555[place] TCDUYEDXPYXXEXRG5174-03-85I96:02:031.2.840 .216146.1.72.3.15|1.2.840.136487.1.13.104. 2.7.2.727879_[id number] Valencia Snow [facility] 2022-12-21 15:47:42 U0TXeHeBCiGQ+/qQ161MRQe7q/XGADOB6j4kpdJz mq k8f2F5s3VU1umrDh3aHcOj9502-17-49D19:47:42F ormatting of this note might be different from the original.Pt's child called and stated that she would like her Mom's results. Please advise 59387-6Bvsjqikix encounter XmomJG0608-49-34K10:48:21Telephone encounter NoteTXT1.2.840.146639.1.13.104.2.7.2.81699 9|[id number] for patient care[address] GxscOlxboyffzBvqaajvzzISKY3384045839KGTRWB TXYYGXEHGKEHXHQM4367-34-32V50:48:211.2.840 .127794.1.72.3.15|1.2.840.685174.1.13.104. 2.7.2.727879_[id number] [facility] 2022-04-20 11:00:00 3zaheCctRZD7eYRWrxtSCALN8JQ/hgWhzHwFhBTN Zr QRm/G3J2Huowt75YU3zaw91635-37-68I09:00:00 Addended by: LETY AREVALO on: 04/20/2022 02:44 PM Modules accepted: Orders 97008-9Rnzgmele AvpbatjxLN1822-53-61Y07:44:26Addendum DocumentTXT1.2.840.479933.1.13.589.2.7.2.7 24481|[id number] for patient careElectrophysiologyElectrophysiologyWestern [facility] at Onrql[address] [place] [address] #[id number] ASUDABGFW0672-61-50E01:44:261.2.840.236454 .1.72.3.15|1.2.840.600916.1.13.589.2.7.2.7 27879_[id number] [facility] 2022-04-20 11:00:00 6JvJcV5LSi2j7jJ8YPAEBp05QD8SE9YSD733JWUL 2X sDLSZV/Dehsh+apCguGHXY6844-25-17D25:00:00 Addended by: JESSE BAUM on: 12/07/2022 01:23 PM Modules accepted: Orders 39399-6Vjtpiwya JydqnohhIY9163-32-87K15:23:57Addendum DocumentTXT1.2.840.525213.1.13.589.2.7.2.7 63219|[id number] for patient careGeneral Practice PhysicianGeneral Practice PhysicianUTHRiverside Tappahannock Hospitale [facility] at [address] [place] [address] #[id number] PRKKYDKAJ8359-61-43D01:23:571.2.840.470805 .1.72.3.15|1.2.840.035008.1.13.589.2.7.2.7 27879_[id number] Tamper Operator Physician [facility] 2019-07-23 12:22:00 TJnttuslygm990241347HzwzQ0sJ3omGuNmlA/H2 yS e3uANZk5kxtLcuDDXg+DFC9VF/UGkprP61xCaZG6D0 304-08-49J23:22:00 [facility] ([facility])Cardiology Progress NoteREPORT#:[id number] REPORT STATUS: SignedDATE:07/23/19 TIME: 1222 PATIENT: SIRENA PURDY UNIT #: [id number]#: [id number] [facility]: [facility] AGE: 83 SEX: F ATTEND: Miriam Hernandez [facility] AUTHOR: Gloria Hannah MD * ALL edits or amendments must be made on the electronic/computer document * SubjectiveChief Complaint:No complaints Objective GeneralVS/I O:24 hour I O ending at 0700: 07/23 0700 07/22 1900 Intake Total Output Total Balance Patient 55.455 kg Weight Weight Stated/Reported Measurement Method Vital Signs: Date Time Temp Pulse Resp B/P B/P Pulse O2 O2 Flow FiO2 Mean Ox Delivery Rate 07/23 0804 98.6 70 18 148/54 85.2 97 Nasal cannula 07/23 0445 98.4 68 18 107/55 72.7 96 Room air 07/22 2346 98.1 63 16 106/58 73.6 97 Room air 07/22 1943 98.4 66 16 102/44 63.4 95 Room air 07/22 1340 98.2 79 18 148/70 96 95 07/22 1256 79 16 155/81 105 99 Patient Weight Weight (lb): Weight (oz): Weight (kg): 55.455 Medications:Active Meds + DC'd Last 24 HrsIopamidol 75 ML ONCE PRN IV Amlodipine Besylate 5 MG DAILY PO Furosemide 20 MG DAILY PO Losartan Potassium 100 MG DAILY PO Pantoprazole 40 MG DAILY PO Amitriptyline HCl 10 MG BEDTIME PO Apixaban 2.5 MG BID PO Metoprolol Succinate 150 MG BID PO Hydrocodone Bitart/Acetaminophen 1 TAB Q6H PRN PRN PO Sodium Chloride 250 ML ASDIR PRN IV Physical ExamGeneral appearance: alert, awake, orientedCardiovascular: CV assessment: regular rate and rhythm, BP pulses = bilaterallyRespiratory: clear to auscultationAbdomen: soft, non-tender ResultsFindings/Data:Laboratory Tests 07/23 07/22 0640 1446 Chemistry Sodium (133 - 144 mmol/L) 139.0 Potassium (3.5 - 5.1 mmol/L) 3.5 Chloride (95 - 105 mmol/L) 108 H Carbon Dioxide (21 - 32 mmol/L) 28 Anion Gap (4.0 - 15.0 GAP calc) 3.0 L BUN (7 - 18 MG/DL) 16 Creatinine (0.55 - 1.30 MG/DL) 0.99 Glucose (70 - 110 MG/DL) 93 Calcium (8.5 - 10.1 MG/DL) 8.5 Magnesium (1.6 - 2.6 MG/DL) 2.1 Troponin I (0.000 - 0.045 NG/ML) 0.135 *H Triglycerides (0 - 150 MG/DL) 137 Cholesterol (133 - 200 MG/DL) 131 L LDL Cholesterol Meas[place] (0 - 129 MG/DL) 77 Non-HDL Cholesterol (<130 mg/dL) 104 HDL Cholesterol (40 - 59 MG/DL) 27 L LDL/HDL Ratio (1.48 - 3.22 Avg Ratio) 2.85 Cholesterol/HDL Ratio (0 RATIO) 4.85 Specimen Appearance (1 NORMAL Index/DL) 1 NORMAL <2 MG Specimen Hemolysis (1 NORMAL Index/DL) 1 NORMAL <10 MG Laboratory Tests 07/23 0640 Hematology WBC (4.1 - 12.1 K/mm3) 7.4 RBC (3.8 - 5.5 M/mm3) 3.20 L Hgb (10.6 - 15.8 G/DL) 9.8 L Hct (31.8 - 47.4 %) 29.5 L MCV (80.1 - 101.1 fL) 92.2 MCH (25.3 - 35.3 pg) 30.6 MCHC (32.7 - 35.1 G/DL) 33.2 RDW (12.2 - 16.4 %) 12.9 Plt Count (155 - 337 K/mm3) 189 MPV (6.8 - 11.2 fL) 9.9 Gran % (37.8 - 82.6 %) 46.6 Lymph % (Auto) (14.1 - 45.4 %) 38.9 [place] % (Auto) (2.5 - 11.7 %) 9.8 Eos % (Auto) (0.0 - 6.2 %) 3.6 Baso % (Auto) (0.0 - 2.1 %) 0.7 Gran # (2.0 - 13.7 k/mm3) 3.46 Lymph # (Auto) (0.6 - 3.8 K/mm3) 2.89 [place] # (Auto) (0.11 - 0.59 K/mm3) 0.73 H Eos # (Auto) (0.0 - 0.4 K/mm3) 0.27 Baso # (Auto) (0.0 - 0.1 K/mm3) 0.05 Immature Gran % (0.0 - 2.0 %) 0.4 Nucleated RBC % (0.0 - 1.0 /100WBC%) 0.0 Nucleated RBCs # (0.0 - 0.05 K/mm3) 0.00 Laboratory Tests 07/23 07/22 0640 1446 Chemistry Magnesium (1.6 - 2.6 MG/DL) 2.1 Troponin I (0.000 - 0.045 NG/ML) 0.135 *H Radiology data:Recent Impressions-Last 72 HrsRADIOLOGY - XR CHEST 1 V 07/22 0846 Report Impression - Status: SIGNED Entered: 07/22/2019 0857 IMPRESSION: Right apical nodule measuring 2.[address] 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 I compared the echocardiogram from the previous echocardiograms done in the outpatient setting that showed an akinetic apex. There is no left ventricular apical thrombus. The patient is already on oral anticoagulation. I had a detailed discussion with Mrs. Purdy regarding the findings on the echocardiogram. 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 Medical management will be continued. We did discuss the option of a repeat left heart catheterization. Since the patient is essentially asymptomatic at present and has been on oral anticoagulation, I would therefore arrange for a left heart catheterization in the outpatient setting. All questions were answered. at 1225 RPT #:[id number] OF REPORTPRProgress [id number]:22:00B.[id number] AVAvailable for patient [id number]:26:11 [facility] 2019-07-23 12:14:00 [id number] ef cYDQUXohFeqSkJKuyPhp2Xr/o9Wl+2qdjTni2+kyv2 [id number]:14:00 [facility] HospitalCardiology ConsultationREPORT#:[id number] REPORT STATUS: SignedDATE:07/23/19 TIME: 1214 PATIENT: SIRENA PURDY UNIT #: [id number]#: [id number] [facility]: [facility] AGE: 83 SEX: F ATTEND: Miriam Hernandez [facility] AUTHOR: Gloria Hannah MD * ALL edits or amendments must be made on the electronic/computer document * History of Present Illness HPIReason for consult:Coronary artery disease.Atrial fibrillation. Free Text HPI NotesFree Text HPI Notes:The patient was seen and examined on 07/22/2019. The consultation is being dictated now. 83-year-old female with known history of coronary artery disease, status post coronary artery bypass grafting who initially presented to [facility] with shortness of breath. 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 History - Adult longitudinalPast medical history:Reports: Atrial fib/flutter, Cancer, Congestive heart failure, COPD, Coronary artery disease, Hypertension, Anticoagulant therapy, Dyslipidemia. Denies: Diabetes mellitus. Past surgical history:Reports: CABG, Cholecystectomy. Additional family history:Not significant for premature coronary artery disease.Alcohol use: Denies EtOH useDrug use: Denies recreational drugsSmoking status for patients 13 years old or older: Former SmokerMedications:Home Medications:Medication Dose/Rte/Freq Days Qty Entered Last Max Daily Dose Reviewed AMITRIPTYLINE (ELAVIL) 10 MG PO DAILY 07/22/19 07/22/19trength: 10 MG TAB 0902 0904 amLODIPine (NORVASC) 5 MG PO DAILY 07/22/19 07/22/19trength: 5 MG TAB 0902 0904 DOXAZOSIN (CARDURA) 2 MG PO DAILY 07/22/19 07/22/19trength: 2 MG TAB 0903 0904 APIXABAN (ELIQUIS) 2.5 MG PO BID 07/22/19 07/22/19trength: 2.5 MG TAB 0903 0904 HYDROcodone/APAP 1 TAB PO 07/22/19 07/22/19 (NORCO 10/325) Q6H PRN PRN PAIN 0903 0904Strength: 10 MG-325 MGTAB FUROSEMIDE (LASIX) 20 MG PO DAILY 07/22/19 07/22/19trength: 20 MG TAB 0903 0904 LOSARTAN (COZAAR) 100 MG PO DAILY 07/22/19 07/22/19trength: 100 MG TAB 0904 0904 METOPROLOL SUCC XL 150 MG PO BID 07/22/19 07/22/19 (TOPROL XL) 0904 09Strength: [address] 20 MG PO DAILY 07/22/19 07/22/19 (OMEPRAZOLE) 0904 0904Strength: 20 MG TAB.DR POTASSIUM CHLORIDE ER 10 MEQ PO DAILY 07/22/19 07/22/19 (MICRO-K) 0904 09Strength: 10 MEQ CAP.SA FLUTICASONE PROPIONATE 1 SPRAY NASAL 07/22/19 (FLONASE 50 MCG/ACT DAILY PRN ALLERGIES 1333 NASAL)Strength: 50MCG/ACTUATION SPRAY ALBUTEROL (PROVENTIL) 1.25 MG NEB RTQ6H 07/22/19trength: 2.5 MG/3 ML 1335(0.083 %) NEB ALBUTEROL 1 PUFF INH 07/22/19 (PROAIR HFA 90 MCG/ACT) RTQ4H PRN PRN SOB 1335Strength: 90 MCG INHALER Current Hospital Medications:Blood Formation,Coagulation Sig/Mateusz Start time Last Medication Dose Route Stop Time Status Admin Apixaban 2.5 MG BID 07/22 2100 AC 07/23 (Eliquis) PO 08/20 210 0929 Cardiovascular Drugs Sig/Mateusz Start time Last Medication Dose Route Stop Time Status Admin Amlodipine Besylate 5 MG DAILY 07/23 899 AC 07/23 (NORVASC) PO 08/21 09 09 Losartan Potassium 100 MG DAILY 07/23 899 AC 07/23 (COZAAR) PO 08/21 09 09 Metoprolol Succinate 150 MG BID 07/22 2099 AC 07/23 (TOPROL XL) PO 08/20 2100 0928 Central Nervous System Agents Sig/Mateusz Start time Last Medication Dose Route Stop Time Status Admin Amitriptyline HCl 10 MG BEDTIME 07/22 2100 AC 07/22 (ELAVIL) PO 08/20 210 2125 Hydrocodone Bitart/ 1 TAB Q6H PRN PRN 07/22 1530 AC 07/23 Acetaminophen PO 08/20 1531 1052 (NORCO 10/325 TABLET) Diagnostic Agents Sig/Mateusz Start time Last Medication Dose Route Stop Time Status Admin Iopamidol 75 ML ONCE PRN 07/23 1100 AC (ISOVUE-300) IV Electrolytic, Caloric, And Delgado Sig/Mateusz Start time Last Medication Dose Route Stop Time Status Admin Furosemide 20 MG DAILY 07/23 899 AC 07/23 (LASIX) PO 08/21 900 09 Sodium Chloride 250 ML ASDIR PRN 07/22 1045 AC (NORMAL SALINE 250 IV 08/20 1046 ML) Gastrointestinal Drugs Sig/Mateusz Start time Last Medication Dose Route Stop Time Status Admin Pantoprazole 40 MG DAILY 07/23 09 AC 07/23 (PROTONIX) PO 08/21 09 0929 Allergies:Coded Allergies:duloxetine (From CYMBALTA) (Intermediate, . 07/22/19)heparin (Intermediate, , 07/22/19)levofloxacin (From LEVAQUIN) (Intermediate, , 07/22/19)pregabalin (From LYRICA) (Intermediate, , 07/22/19)rivaroxaban (From XARELTO) (Intermediate, . 07/22/19)warfarin (From COUMADIN) (Intermediate, . 07/22/19) Review of Systems Free Text ROS NotesFree Text ROS Notes:14 point review of systems were performed. Pertinent positive and negative mentioned in H P. Objective Physical ExamVS/I O:Vital Signs: Date Time Temp Pulse Resp B/P B/P Pulse O2 O2 Flow FiO2 Mean Ox Delivery Rate 07/23 0804 98.6 70 18 148/54 85.2 97 Nasal cannula 07/23 0445 98.4 68 18 107/55 72.7 96 Room air 07/22 2346 98.1 63 16 106/58 73.6 97 Room air 07/22 1943 98.4 66 16 102/44 63.4 95 Room air 07/22 1340 98.2 79 18 148/70 96 95 07/22 1256 79 16 155/81 105 99 24 hour I O ending at 0700: 07/23 0700 07/22 1900 Intake Total Output Total Balance Patient 55.455 kg Weight Weight Stated/Reported Measurement Method Patient Weight Weight (lb): Weight (oz): Weight (kg): 55.455 General appearance: alert, awake, orientedHead/Eyes: atraumatic, clear cornea, EOMINeck: full range of motion, non-tender, normal thyroidCardiovascular: CV assessment: irregularly irregular, pedal pulses present, no ectopy, no gallopRespiratory: clear to auscultationAbdomen: soft, non-tender, normal bowel soundsLower extremity: LE assessment: no clubbing, no cyanosis, no edemaSkin: dry, intact, normal color ResultsFindings/Data:Laboratory Tests 07/23 07/22 0640 1446 Chemistry Sodium (133 - 144 mmol/L) 139.0 Potassium (3.5 - 5.1 mmol/L) 3.5 Chloride (95 - 105 mmol/L) 108 H Carbon Dioxide (21 - 32 mmol/L) 28 Anion Gap (4.0 - 15.0 GAP calc) 3.0 L BUN (7 - 18 MG/DL) 16 Creatinine (0.55 - 1.30 MG/DL) 0.99 Glucose (70 - 110 MG/DL) 93 Calcium (8.5 - 10.1 MG/DL) 8.5 Magnesium (1.6 - 2.6 MG/DL) 2.1 Troponin I (0.000 - 0.045 NG/ML) 0.135 *H Triglycerides (0 - 150 MG/DL) 137 Cholesterol (133 - 200 MG/DL) 131 L LDL Cholesterol Measurd (0 - 129 MG/DL) 77 Non-HDL Cholesterol (<130 mg/dL) 104 HDL Cholesterol (40 - 59 MG/DL) 27 L LDL/HDL Ratio (1.48 - 3.22 Avg Ratio) 2.85 Cholesterol/HDL Ratio (0 RATIO) 4.85 Specimen Appearance (1 NORMAL Index/DL) 1 NORMAL <2 MG Specimen Hemolysis (1 NORMAL Index/DL) 1 NORMAL <10 MG Laboratory Tests 07/23 0640 Hematology WBC (4.1 - 12.1 K/mm3) 7.4 RBC (3.8 - 5.5 M/mm3) 3.20 L Hgb (10.6 - 15.8 G/DL) 9.8 L Hct (31.8 - 47.4 %) 29.5 L MCV (80.1 - 101.1 fL) 92.2 MCH (25.3 - 35.3 pg) 30.6 MCHC (32.7 - 35.1 G/DL) 33.2 RDW (12.2 - 16.4 %) 12.9 Plt Count (155 - 337 K/mm3) 189 MPV (6.8 - 11.2 fL) 9.9 Gran % (37.8 - 82.6 %) 46.6 Lymph % (Auto) (14.1 - 45.4 %) 38.9 [place] % (Auto) (2.5 - 11.7 %) 9.8 Eos % (Auto) (0.0 - 6.2 %) 3.6 Baso % (Auto) (0.0 - 2.1 %) 0.7 Gran # (2.0 - 13.7 k/mm3) 3.46 Lymph # (Auto) (0.6 - 3.8 K/mm3) 2.89 [place] # (Auto) (0.11 - 0.59 K/mm3) 0.73 H Eos # (Auto) (0.0 - 0.4 K/mm3) 0.27 Baso # (Auto) (0.0 - 0.1 K/mm3) 0.05 Immature Gran % (0.0 - 2.0 %) 0.4 Nucleated RBC % (0.0 - 1.0 /100WBC%) 0.0 Nucleated RBCs # (0.0 - 0.05 K/mm3) 0.00 Laboratory Tests 07/23 07/22 0640 1446 Chemistry Magnesium (1.6 - 2.6 MG/DL) 2.1 Troponin I (0.000 - 0.045 NG/ML) 0.135 *H Radiology Data:Recent Impressions-Last 72 HrsRADIOLOGY - XR CHEST 1 V 07/22 0846 Report Impression - Status: SIGNED Entered: 07/22/2019 0857 IMPRESSION: Right apical nodule measuring 2.[address] Lungsare otherwise clear.Impression By: [email or web address] - Kurt Fernández MD Diagnosis, Assessment Plan Free Text DxA P NotesFree Text DxA P Notes:83-year-old female with known history of coronary artery disease; status post coronary artery bypass grafting, who is presenting with shortness of breath and chest pains. She is known to have an ejection fraction of approximately 50% with akinetic apex. She has been in persistent rate controlled atrial fibrillation, on oral anticoagulation. The troponins are marginally elevated and are not linearly rising. The patient did undergo a left heart catheterization in 2012 that showed patent graft circulation. I would recommend a transthoracic echocardiogram to further assess the left ventricular apex, especially with a query of aneurysm formation reported by the CT scan of the chest. I would also recommend a pacemaker interrogation to assess fast atrial fibrillation that could likely contribute to her symptoms. Clinically, there are no pointers of ongoing coronary ischemia. I will considera left heart catheterization in case of recurrent chest pains and or rising troponins. at 1222 RPT #:[id number] OF REPORTBFFptejneixxfi8552-53-02E33:14:00 B.[id number] for patient jrqcOBVHYXRORXEQNA3066-96-90U01:22:30 [facility] 2019-07-23 10:45:00 [id number]+imVIP8UaJ/w3xl8FGRn4 3L I5SIZqZr6tX6md7f+pMjKhDGEy2wu9LgB7cQj9PA41 899-85-30D58:45:00 [facility] ([facility]ITALInternal Medicine Prog. NoteREPORT#:[id number] REPORT STATUS: SignedDATE:07/23/19 TIME: 1045 PATIENT: SIRENA PURDY UNIT #: [id number]#: [id number] [address] [birth year] AGE: 83 SEX: F ATTEND: Miriam Hernandezjose maria [facility] AUTHOR: Toan Arenas MD * ALL edits or amendments must be made on the electronic/computer document * SubjectiveChief Complaint:No new complaints. Case discussed at length with Dr. Hannah and plans are [facility]outpatient [facility] Review of SystemsConstitutional:Reports: fatigue, generalized weakness. Denies: chills, fever, lethargy, malaise, recent wt loss, other. Skin:Denies: abrasion, bruising, contusion, diaphoresis, ecchymosis, itching, laceration, rash, swelling, other. Allergy/Immun:Denies: allergic reaction, anaphylaxis, hives, itching, rhinorrhea, sneezing, other. ENT:Denies: ear drainage, ear ringing, earache, hearing loss, mouth pain, nasal congestion, nose bleeding, sinus problem, sore throat, throat pain, throat swelling, tongue pain, tongue swelling, toothache, voice change, other. Respiratory:Denies: RODAS (dyspnea on exertion), hemoptysis, non productive cough, parox nocturnal dyspnea, pleurisy, pleuritic pain, pneumonia, productive cough (sputum), SOB, wheezing, other. GI:Denies: abdominal pain, anorexia, constipation, diarrhea, dysphagia, GERD, hematemesis, hematochezia, hiatal hernia, melena, nausea, rectal pain, vomiting,other. :Denies: dysuria, flank pain, frequency, hematuria, nocturia, pelvic pain, , urgency, urinary retention, vaginal bleeding, vaginal discharge, other. Musculoskeletal:Denies: arthritis, extremity pain, extremity swelling, joint pain, joint swelling, lumbar pain, myalgias, neck pain, thoracic pain, other. Objective GeneralVS/I O:Vital Signs Date Temp Pulse Resp B/P B/P Mean Pulse Ox FiO2 07/22-07/23 36.7-37.0 63-84 16-18 102-155/44-81 63.4-105 95-99 Last Documented: Result Date Time Pulse Ox 97 07/23 0804 B/P 148/54 07/23 0804 B/P Mean 85.2 02/13 0804 O2 Delivery Nasal cannula 07/23 803 Temp 37.0 07/23 803 Pulse 70 07/23 08 Resp 18 07/23 803 24 hour I O ending at 0700: 07/23 0700 07/22 1900 Intake Total Output Total Balance Patient 55.455 kg Weight Weight Stated/Reported Measurement Method Patient Weight Weight (lb): Weight (oz): Weight (kg): 55.455 Medications:Active Meds + DC'd Last 24 HrsAmlodipine Besylate 5 MG DAILY PO Furosemide 20 MG DAILY PO Losartan Potassium 100 MG DAILY PO Pantoprazole 40 MG DAILY PO Amitriptyline HCl 10 MG BEDTIME PO Apixaban 2.5 MG BID PO Metoprolol Succinate 150 MG BID PO Hydrocodone Bitart/Acetaminophen 1 TAB Q6H PRN PRN PO Hydrocodone Bitart/Acetaminophen 1 TAB ONCE ONE PO (DC) Sodium Chloride 250 ML ASDIR PRN IV Physical ExamGeneral appearance: alert, awake, orientedENT: moist mucosal membranes, normal dentition, normal ear rightNeck: full range of motion, non-tender, normal thyroid, supple/no meningismusCardiovascular: normal capillary refill, normal heart sounds, regular rate rhythmRespiratory: aerating well, clear to auscultationAbdomen: non-tender, normal bowel sounds, soft, no distention ResultsFindings/Data:Laboratory Tests 07/23/19 0640:[Embedded Image Not Available]Laboratory Tests 07/23 07/22 07/22 0640 1446 1132 Chemistry Sodium (133 - 144 mmol/L) 139.0 Potassium (3.5 - 5.1 mmol/L) 3.5 Chloride (95 - 105 mmol/L) 108 H Carbon Dioxide (21 - 32 mmol/L) 28 Anion Gap (4.0 - 15.0 GAP calc) 3.0 L BUN (7 - 18 MG/DL) 16 Creatinine (0.55 - 1.30 MG/DL) 0.99 Glucose (70 - 110 MG/DL) 93 Calcium (8.5 - 10.1 MG/DL) 8.5 Magnesium (1.6 - 2.6 MG/DL) 2.1 Troponin I (0.000 - 0.045 NG/ML) 0.135 *H 0.146 *H Triglycerides (0 - 150 MG/DL) 137 Cholesterol (133 - 200 MG/DL) 131 L LDL Cholesterol Measurd (0 - 129 MG/DL) 77 Non-HDL Cholesterol (<130 mg/dL) 104 HDL Cholesterol (40 - 59 MG/DL) 27 L LDL/HDL Ratio (1.48 - 3.22 Avg Ratio) 2.85 Cholesterol/HDL Ratio (0 RATIO) 4.85 Specimen Appearance (1 NORMAL Index/DL) 1 NORMAL <2 MG Specimen Hemolysis (1 NORMAL Index/DL) 1 NORMAL <10 MG Laboratory Tests 07/23 0640 Hematology WBC (4.1 - 12.1 K/mm3) 7.4 RBC (3.8 - 5.5 M/mm3) 3.20 L Hgb (10.6 - 15.8 G/DL) 9.8 L Hct (31.8 - 47.4 %) 29.5 L MCV (80.1 - 101.1 fL) 92.2 MCH (25.3 - 35.3 pg) 30.6 MCHC (32.7 - 35.1 G/DL) 33.2 RDW (12.2 - 16.4 %) 12.9 Plt Count (155 - 337 K/mm3) 189 MPV (6.8 - 11.2 fL) 9.9 Gran % (37.8 - 82.6 %) 46.6 Lymph % (Auto) (14.1 - 45.4 %) 38.9 [place] % (Auto) (2.5 - 11.7 %) 9.8 Eos % (Auto) (0.0 - 6.2 %) 3.6 Baso % (Auto) (0.0 - 2.1 %) 0.7 Gran # (2.0 - 13.7 k/mm3) 3.46 Lymph # (Auto) (0.6 - 3.8 K/mm3) 2.89 [place] # (Auto) (0.11 - 0.59 K/mm3) 0.73 H Eos # (Auto) (0.0 - 0.4 K/mm3) 0.27 Baso # (Auto) (0.0 - 0.1 K/mm3) 0.05 Immature Gran % (0.0 - 2.0 %) 0.4 Nucleated RBC % (0.0 - 1.0 /100WBC%) 0.0 Nucleated RBCs # (0.0 - 0.05 K/mm3) 0.00 Diagnosis, Assessment Plan Free Text DxA P NotesFree Text DxA P Notes: ASSESSMENT AND PLAN:1. Chest pain secondary to musculoskeletal versus gastroesophageal reflux disease versus acute coronary syndrome versus hypertensive urgency. Cardiologywas consulted, recommended getting echo. Troponins peaked. Chest x-ray doesnot show any vascular congestion.2. Atrial fibrillation. Continue Toprol-XL and Eliquis.3. Hypertension. Continue Norvasc 5 mg, Cozaar 100 mg.4. Gastroesophageal reflux disease. Continue omeprazole 40 mg.5. Coronary artery disease status post 2 CABG. Lipid profile pending.6. Chronic obstructive pulmonary disease. DuoNeb as needed.7. Questionable heart failure. Echo pending. Continue Lasix, Cozaar, andToprol-XL.8. Right apical nodule measuring 2.1 cm seen on chest x-ray. Consider gettinga CT chest.9. Epigastric pain, likely secondary to peptic ulcer disease orgastroesophageal reflux disease. Continue PPI. We will try GI cocktail. PLaN:1. D/C home2. Follow up Dr. Hannah for [facility] at 1708 RPT #:[id number] OF REPORTPRProgress [id number]:45:00B.[id number] AVAvailable for patient ggfiFMEWMILCJKTYPC7410-21-34E38:08:58 [facility] 2019-07-22 15:29:00 [id number]/0IULTFZk Tc +uwV1iTU6fojiIVF8rIdzpiWuGSnawYqQyEOLkUUs8 180-04-41Q64:29:179336-[address] [place], [place] [address] PATIENT NAME: SIRENA PURDY ADMIT DATE: 07/22/19ACCOUNT NO: [id number] ROOM NO: B.253 AGE: 83 REPORT TYPE: HISTORY AND PHYSICAL SEX: F ADMITTING PHYSICIAN:Miriam Hernandez MD ATTENDING PHYSICIAN:Miriam Hernandez MD ADMISSION DATE: 07/22/2019 HISTORY OF PRESENT ILLNESS: An 83-year-old female with past medical history ofcoronary artery disease, status post 2 CABGs, COPD, AFib, hypertension,fibromyalgia, presented with shortness of breath and chest pain. States itstarted initially where she could not catch her breath and progressed to pain inher chest that felt like a squeezing pain. Denied any radiation to the left armor jaw. States she checked her blood pressure and it was 200/100. States itwas worsened by exertion, relieved by rest. Nonpleuritic or positional. Deniedany PND. Does endorse orthopnea. Stated that her shortness of breath got sobad, she called the ambulance to come to the ED. She has never had pain likethis before, did not feel like when she had her last heart attack. Denies anyalleviating measures. Denies any nausea, vomiting, dizziness, headache, orvision changes. Did endorse that she said that she is sore all throughout hermiddle chest: Denies any abdominal pain, constipation, or diarrhea. Noincreased lower extremity edema. PAST MEDICAL HISTORY: CAD, CABG, COPD, AFib, hypertension, and heartburn. FAMILY HISTORY: Noncontributory. SOCIAL HISTORY: No longer smokes or drinks. No illicit drugs. PAST SURGICAL HISTORY: CABG and cholecystectomy. REVIEW OF SYSTEMS: Twelve-point review of systems done. Pertinent positives inHPI. PHYSICAL EXAMINATION:VITAL SIGNS: 148/70, heart rate 79.GENERAL APPEARANCE: Elderly female, in no acute distress, conversing in fullsentences.CARDIOVASCULAR: Irregularly irregular.LUNGS: Clear to auscultation bilaterally.ABDOMEN: Positive bowel sounds. Soft, tenderness to palpation on epigastricregion, nondistended. No guarding or rebound.EXTREMITIES: Trace edema present. All labs, imaging, medications, and product consultant notes were reviewed. ASSESSMENT AND PLAN:1. Chest pain secondary to musculoskeletal versus gastroesophageal reflux PATIENT NAME: SIRENA PURDY disease versus acute coronary syndrome versus hypertensive urgency. Cardiologywas consulted, recommended getting echo. Troponins peaked. Chest x-ray doesnot show any vascular congestion.2. Atrial fibrillation. Continue Toprol-XL and Eliquis.3. Hypertension. Continue Norvasc 5 mg, Cozaar 100 mg.4. Gastroesophageal reflux disease. Continue omeprazole 40 mg.5. Coronary artery disease status post 2 CABG. Lipid profile pending.6. Chronic obstructive pulmonary disease. DuoNeb as needed.7. Questionable heart failure. Echo pending. Continue Lasix, Cozaar, andToprol-XL.8. Right apical nodule measuring 2.1 cm seen on chest x-ray. Consider gettinga CT chest.9. Epigastric pain, likely secondary to peptic ulcer disease orgastroesophageal reflux disease. Continue PPI. We will try GI cocktail. Dictated By: Miriam Hernandez MD WT: HP:B.ARIANA/DOROTHY.04/NTSDD: 07/22/2019 15:29:27DT: 07/22/2019 20:44:38Conf#: [id number]/DID#: [id number] by Miriam Hernandez MD On 07/28/2019 10:10:56 AM at 1011 PATIENT NAME: SIRENA PURDY and physical cekolxpxdaz6440-39-83A87:44:00B.[id number] for patient locnYNOXFOUXIHEXLY1238-22-61M02:11:37 [facility] 2019-07-22 15:22:00 [id number]+tFsB33OXo3I I5 0mphMIfh4A6SfM9EoeFgVcPafyVZvgq1Num7QMtui4 797-19-16Z18:22:873335-[address] [place] [address] PATIENT NAME: SIRENA PURDY ADMIT DATE: 07/22/19ACCOUNT NO: [id number] ROOM NO: B.253 AGE: 83 REPORT TYPE: eECHOCARDIOGRAM REPORT SEX: F ADMITTING PHYSICIAN:Miriam Hernandez MD ATTENDING PHYSICIAN:Miriam Hernandez MD Name: SIRENA PURDY Study Date: 07/22/2019 03:22 PMPatient Location[facility] WMRN: [id number]: [id number] BP: 149/72 mmHgAccount #: [id number]: 59 inGender: Female Weight: 122 lbDOB: 1935 Gender: FemaleAge: 83 yrsEthnicity: W BSA: 1.5 m1Fosfvg For Study: CHF Cardiac Measurements with Normal Values:Ao root diam: 2.6 cm 20-37 mmACS: 1.5 cm 15-26 mmLA dimension: 4.2 cm 19-40 mmLVIDd: 4.0 cm 37-56 mmLVIDs: 2.7 cm - IVSd: 1.1 cm6-11 mmRVDd: 2.4 cm 7-23 mm MMode/2D Measurements CalculationsLVPWd: 1.1 cm FS: 31.1 % EDV(Teich): 68.9 ml ESV(Teich): 27.9 ml EF(Teich): 59.4 % LVOT diam: 1.9 cmAo root area: 5.2 cm2 LVOT area: 2.9 cm2 Doppler Measurements CalculationsAo V2 max: 138.4 cm/sec LV V1 max P.9 mmHgAo max P.7 mmHg LV V1 mean P.3 mmHgAo V2 mean: 76.9 cm/sec LV V1 max: 85.6 cm/secAo mean P.9 mmHg LV V1 mean: 51.6 cm/secAo V2 VTI: 26.9 cm LV V1 VTI: 16.1 cmAVA(I,D): 1.8 cm2 MELL(V,D): 1.8 cm2 SV(LVOT): 47.4 ml TR max rosalba: 305.6 cm/sec TR max P.9 mmHg PATIENT NAME: SIRENA PURDY RVSP(TR): 42.9 mmHg RAP systole: 5.0 mmHg ConclusionsThere is apical akinesis.Ejection Fraction = 40-45%.The left ventricle is grossly normal size.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 Left VentricleThe left ventricle is grossly normal size. There is a moderate size apicalaneurysm. Ejection Fraction = 40-45%. There is apical akinesis. Right VentricleThe right ventricle is grossly normal size. AtriaThe left atrium is mildly dilated. Right atrial size is normal. Mitral ValveThe mitral valve is grossly normal. There is mild mitral regurgitation. Tricuspid ValveThe tricuspid valve is not well visualized, but is grossly normal. There ismild tricuspid regurgitation. Aortic ValveThe aortic valve is trileaflet. The aortic valve opens well. Nohemodynamically significant valvular aortic stenosis. Pulmonic ValveThe pulmonic valve is not well visualized. Great VesselsThe aortic root is normal size. Pericardium/PleuralThere is no pericardial effusion. Electronically signed by: Gloria Hannah MD 07/23/2019 11:43 AMOrdering Physician: David Bucio MDReferring Physician: Sukumar Bobformed By: Alexander Fuentes PATIENT NAME: SIRENA PURDY at 1143 PATIENT NAME: SIRENA PURDY 11:43:00B.[id number] for patient ulpuBVOEOHZOTBZJQF2828-80-91R99:44:06 [facility] 2019-07-22 13:58:00 [id number] P2 YFq7MsGe+GIpHcC94F1Zhk1lm1ivl1cS0S2t0v3yK1 287-62-43I74:58:00 [facility] ([facility])Clinical NoteREPORT#:[id number] REPORT STATUS: SignedDATE:07/22/19 TIME: 1358 PATIENT: SIRENA PURDY UNIT #: [id number]#: [id number] [facility]: [facility][birth year] AGE: 83 SEX: F ATTEND: Miriam Hernandez [facility] AUTHOR: Gloria Hannah MD * ALL edits or amendments must be made on the electronic/computer document * Clinical NoteNote:patient seen and examined. Full consultation to follow. recommend 2d echo/pacer interrogation. at 1358 RPT #:[id number] OF REPORTCLClinical nhdw4980-56-69L37:58:00B.[id number] AVAvailable for patient ulktPXYZMAAIEIVUQE0613-60-57G69:59:20 [facility] 2019-07-22 08:36:00 [id number] 9S hfMBwo9GGRZC/9qKymSgqKKUct4f1/gHWrylj/CmU2 791-81-22K07:36:00 [facility] ([facility])EMERGENCY PROVIDER REPORTREPORT#:[id number] REPORT STATUS: SignedDATE:07/22/19 TIME: 835 PATIENT: SIRENA PURDY UNIT #: [id number]#: [id number] ROOM/BED:AGE: 83 SEX: F PCP PHYS:SERVICE DT: AUTHOR: Latrell Bob MD * ALL edits or amendments must be made on the electronic/computer document * HPI-Chest Pain 40 and Over GeneralConfirmed Patient YesInitial Greet Date/Time 07/22/19 0835Assumed Care at Time 0836 Date 07/22/19 PresentationChief Complaint Chest painHx Obtained From Patient, EMSSudden in Onset? NoOnset Occurred YesterdaySymptom Duration Since onsetProgression since Onset UnchangedLocation SubsternalQuality Aching)( Migration/Movement NoneSeverity: Onset MildSeverity: Current MildAssociated withReports: Shortness of Breath. Denies: Diaphoresis, Nausea, Vomiting. Associated Other Pt denies other symptomsExacerbated by NothingRelieved by Nothing Free Text HPI NotesFree Text HPI Notes83 y/o female with a PMHx of MA, CAD, COPD, CHF, htn, and afib presents to the ED with c/o chest pain since yesterday. Pt reports that she has breathing problems normally but felt more uncomfortable yesterday night. She states that she was unable to sleep because she started to have some chest discomfort with shortness of breath. Pt denies having any nausea, vomiting, or diaphoresis. She states that she sees Dr. Hannah for her cardiac issues. Pt is allergic to most blood thinners but is currently on Eliquis. EMS reports that pt did not receive aspirin or any other medications. Troponin at other facility was 0.05. Portions of this section were scribed by Dianelys Clarke on 07/22/19 at 0838 Risk-Chest Pain 40 and Over Risk Stratification)( Coronary Artery Disease Risk factors reviewed, Hypertension, Known CAD)( Thoracic Aortic Dissection Risk factors reviewed, Hypertension)( Pulmonary Embolism Risk factors reviewed, No risk factors)( AMI-Aspirin Aspirin Last 24 Hrs None Portions of this section were scribed by Dianelys Clarke on 07/22/19 at 0838 Review of Systems ROS StatementsAll systems rev neg except as marked. Focused Review of SystemsConstitutionalDenies: Chills, Fever. RespiratoryReports: Shortness of breath. Denies: Cough, non-productive. CardiovascularReports: Chest pain. Denies: Palpitations. GIDenies: Abdominal pain, Diarrhea, Nausea, Vomiting. MusculoskeletalDenies: Back pain, Extremity pain, Extremity swelling. SkinDenies: Abrasion, Laceration. NeurologicDenies: Headache, Lightheaded. Additional Review of SystemsEyesDenies: Blurred bilat, Discharge bilat. Ears/Nose/ThroatDenies: Ear drainage bilat, Ear ringing bilat. FemaleDenies: Dysuria, Flank pain, Hematuria. Portions of this section were scribed by Dianelys Clarke on 07/22/19 at 0838 Past Medical History - AdultStated Complaint CHEST PAIN, SOBAllergiesCoded Allergies:duloxetine (From CYMBALTA) (Intermediate, . 07/22/19)heparin (Intermediate, , 07/22/19)levofloxacin (From LEVAQUIN) (Intermediate, , 07/22/19)pregabalin (From LYRICA) (Intermediate, , 07/22/19)rivaroxaban (From XARELTO) (Intermediate, . 07/22/19)warfarin (From COUMADIN) (Intermediate, . 07/22/19) Home MedicationsReported MedicationsAMITRIPTYLINE (ELAVIL) 10 MG PO DAILY amLODIPine (NORVASC) 5 MG PO DAILY [CALCITONIN] DOXAZOSIN (CARDURA) 2 MG PO DAILY APIXABAN (ELIQUIS) 2.5 MG PO BID HYDROcodone/APAP (NORCO 10/325) 1 TAB PO Q6H PRN PRN PAIN FUROSEMIDE (LASIX) 20 MG PO DAILY LOSARTAN (COZAAR) 100 MG PO DAILY METOPROLOL SUCC XL (TOPROL XL) 150 MG PO BID OMEPRAZOLE DR (OMEPRAZOLE) 20 MG PO DAILY POTASSIUM CHLORIDE ER (MICRO-K) 10 MEQ PO DAILY Pt reports no significant: Family history, Social historyPast Medical History:Reports: Atrial fib/flutter, Congestive heart failure, COPD, Coronary artery disease, Hypertension. Denies: Diabetes mellitus. Portions of this section were scribed by Dianelys Clarke on 07/22/19 at 0838 Physical Exam Vital SignsVital SignsFirst Documented: Result Date Time Pulse Ox 98 07/22 832 B/P 149/72 07/22 832 B/P Mean 97 07/22 832 O2 Delivery Room air 07/22 832 Temp 36.6 07/22 832 Pulse 82 07/22 832 Resp 18 07/22 832 Last Documented: Result Date Time O2 Delivery Room air 07/22 857 Pulse Ox 98 07/22 850 B/P 149/72 07/22 832 B/P Mean 97 07/22 832 Temp 36.6 07/22 832 Pulse 82 07/22 832 Resp 18 07/22 832 Review of Vital Signs Reviewed Focused PEGeneral/Const General/Const Awake, AlertEyes Eyes PERRL, EOMIMS Neck Neck Supple, Full range of motionResp/Chest Respiratory/Chest Atraumatic, No respiratory distress Text/Dict NotesCrackles to the bases Cardiovascular Cardiovascular No murmurs Text/Dict NotesNo petal edema Heart Rate/Rhythm Irregular rhythm. Abdomen/GI Abdomen/GI Soft, Non-tenderMS Back Back Full range of motion, Non-tenderMS Lower Extrem Lower Ext/Pelvis/MS Full range of motion, Non-tenderSkin Skin Warm, DryNeurologic Neurologic Oriented X3, Speech NLPsychiatric Psychiatric Affect NL, Mood NL Additional PEMS Head Head Atraumatic, NormocephalicEars/Nose/Throat Ears/Nose/Throat Airway patent, Mucous membranes moistMS Upper Extrem Upper Extremity/MS Full range of motion, Non-tenderMS Wrist/Hand Wrist/Hand Full range of motion, Non-tenderMS Ankle/Foot Ankle/Foot Full range of motion, Non-tender Portions of this section were scribed by Dianelys Clarke on 07/22/19 at 0838 Interpretation Diagnostics Lab Results InterpretationResultsLaboratory Tests 07/22/19 0840:[Embedded Image Not Available]Laboratory Tests: 07/22 07/22 0841 0840 Chemistry Sodium (133 - 144 mmol/L) 140.0 Potassium (3.5 - 5.1 mmol/L) 4.1 Chloride (95 - 105 mmol/L) 108 H Carbon Dioxide (21 - 32 mmol/L) 28 Anion Gap (4.0 - 15.0 GAP calc) 4.0 BUN (7 - 18 MG/DL) 16 Creatinine (0.55 - 1.30 MG/DL) 0.99 Glucose (70 - 110 MG/DL) 114 H Calcium (8.5 - 10.1 MG/DL) 9.2 Rapid Troponin I (0.00 - 0.07 NG/ML) 0.10 *H Specimen Appearance (1 NORMAL Index/DL) 1 NORMAL <2 MG Specimen Hemolysis (1 NORMAL Index/DL) 1 NORMAL <10 MG Hematology WBC (4.1 - 12.1 K/mm3) 9.4 RBC (3.8 - 5.5 M/mm3) 3.70 L Hgb (10.6 - 15.8 G/DL) 11.2 Hct (31.8 - 47.4 %) 34.0 MCV (80.1 - 101.1 fL) 91.9 MCH (25.3 - 35.3 pg) 30.3 MCHC (32.7 - 35.1 G/DL) 32.9 RDW (12.2 - 16.4 %) 12.6 Plt Count (155 - 337 K/mm3) 213 MPV (6.8 - 11.2 fL) 9.5 Recent Impressions:RADIOLOGY - XR CHEST 1 V 07/22 0846 Report Impression - Status: SIGNED Entered: 07/22/2019 0857 IMPRESSION: Right apical nodule measuring 2.[address] Lungsare otherwise clear.Impression By: [email or web address] - Kurt Fernández MD Point of Care TestingPulse Oximetry Pulse Ox % 98 On: Room air Interpretation Interpreted by wa Time 0841 ECG #1 InterpretationText/Dict NoteSinus rhythm, Q waves in v1 and v2, Diffuse ST changes, Diffuse T wave inversions ECG Documented in MUSE NoDate 07/22/19Time 0833Interpreted by ED physicianNL ECG Interpretation No STEMIRate 76 Portions of this section were scribed by Dianelys Clarke on 07/22/19 at 0838 Re-Evaluation MDM Free Text MDM NotesFree Text MDM NotesPatient is pain-free, delta troponin at the outside hospital elevated. History of coronary artery disease, her eating disorder psychologist is Dr. Hannah here. Admitted forfurther cardiac evaluation Re-Evaluation/Progress #1Text/Dict NoteInformed the pt that it would be beneficial to be admitted for further care and evaluation of condition. Pt agrees and is comfortable with plans for admission. Admitting doctor consulted and updated. All questions and concerns addressed. Time of Re-Eval 0842 ED CourseMedication(s) OrderedMedication(s) Ordered:Central Nervous System Agents Sig/Mateusz Start time Last Medication Dose Route Stop Time Status Admin Aspirin 325 MG X1ED STA 07/22 0837 DC 07/22 PO 07/22 837 0843 Portions of this section were scribed by Dianelys Clarke on 07/22/19 at 0838 Patient Discharge Departure Vital Signs/ConditionVital SignsFirst Documented: Result Date Time Pulse Ox 98 07/22 832 B/P 149/72 07/22 0733 B/P Mean 97 07/22 0733 O2 Delivery Room air 07/22 832 Temp 36.6 07/22 832 Pulse 82 07/22 832 Resp 18 07/22 08 Last Documented: Result Date Time O2 Delivery Room air 07/22 0858 Pulse Ox 98 07/22 0851 B/P 149/72 07/22 832 B/P Mean 97 07/22 832 Temp 36.6 07/22 832 Pulse 82 07/22 832 Resp 18 07/22 832 All vital signs available at the time of this entry have been reviewed. Clinical ImpressionClinical ImpressionPrimary Impression: NSTEMI (non-ST elevated myocardial infarction)Secondary Impressions: CAD (coronary artery disease), Chronic anticoagulation, Exertional dyspnea, Ventricular aneurysm Disposition DecisionAdmit Admit Physician Name Maria E John MD Admit Physician Hospitalist Request Time 0843 Request Date 07/22/19 )( Admission Accepts Yes )( Accepted Time 0843 )( Accepted Date 07/22/19 Call Information will see patient Quality MeasuresBP F/U for HTN Patient admitted, Pre-existing FCO52-Oapt ECG for CP Performed documented Supervising Physician Note Scribe StatementDianelys Clarke, 07/22/19 0843, scribing for and in the presence of [Latrell Bob].Signed By: Dianelys Clarke, 07/22/19 0843 Provider Scribed StatementI personally performed the services described in this documentation and reviewedthe documentation that was dictated to the scribe(s) in my presence, and it accurately records my words and actions. Latrell Bob, 07/22/19 Portions of this section were scribed by Dianelys Clarke on 07/22/19 at 0838 at 0906RPT #:[id number] OF REPORTEDEmeswedish medical center [facility] department [id number] 31AVAvailable for patient [id number] [facility]
[2023-07-13 02:54] LABS: Arterial Blood Carboxyhemoglob 0.8 % (0-1.5); Blood Gas Oxyhemoglobin 96.6 % (94-97)
[2023-07-13 03:24] LABS: Absolute Lymphocytes (CBC) 1.1 K/uL (0.7-4.9); Hematocrit 32.2 % (36.0-45.0); Lymphocytes % 9.4 % (15.3-44.8); MCV 95.7 fL (80-100); MPV 7.7 fL (7.6-11.3); Platelets 190 thou/uL (152-406); RBC Red Blood Cell Count 3.36 M/uL (3.86-4.86)
[2023-07-13] MEDS ORDERED: ONDANSETRON 4 MG/2 ML VIAL IV PRN (03:48)
[2023-07-13] MEDS ORDERED: ACETAMINOPHEN 325 MG TABLET PO PRN (03:48)
[2023-07-13 03:51] LABS: Bilirubin Direct 0.1 mg/dL (0-0.2); Bilirubin Indirect, Calculated 0.2 mg/dL (0.2-0.8); Bilirubin Total 0.3 mg/dL (0.2-1.0); Magnesium 2.3 mg/dL (1.6-2.4); Potassium 3.3 mEq/L (3.5-5.1); Protein, Total 7.3 g/dL (6.4-8.2); Troponin High Sensitivity 25.5 pg/mL (<58.9)
--- NOTE | 2023-07-13 03:53 | P.HP ---
Certification for Inpatient Patient admitted to: Observation With expected LOS: <2 Midnights Practitioner: I am a practitioner with admitting privileges, knowledge of patient current condition, hospital course, and medical plan of care. Services: Services provided to patient in accordance with Admission requirements found in Title 42 Section 412.3 of the Code of Federal Regulations Patient History Date of Service: 07/13/23 Reason for admission: COPD exacerbation. History of Present Illness: 87-year-old female patient with past medical history significant for CHF, COPD, hypertension, hyperlipidemia, chronic atrial fibrillation on anticoagulation with Eliquis who came to the emergency room with complaint of shortness of breath and lethargy. She had ABG done that revealed elevated pCO2 of 55 and pH was within normal limit. She also had issues with hypoxia so she was put on BiPAP therapy and she was asked to be evaluated for inpatient care for observation. She denied overt episode of chest pain, fever, chills, rigor, nausea, vomiting. She reports difficulty breathing episodes that improved significantly since she came to the hospital. Initial lab was continued for planning for low potassium at 3.3 however hemoglobin was within acceptable limit. Chest x-ray did not show overt opacification depicting pneumonia. Allergies levofloxacin [From Levaquin] Allergy (Verified 04/14/23 13:19) Rash Home Medications: Amitriptyline [Elavil*] 10 mg PO BEDTIME 04/14/23 Apixaban [Eliquis *] 2.5 mg PO BID 04/14/23 Carvedilol [Coreg] 12.5 mg PO BID 04/14/23 Famotidine [Pepcid*] 20 mg PO BID 04/14/23 Fexofenadine HCl [Rylie Allergy] 60 mg PO BEDTIME 04/14/23 Fluticasone Propionate [Fluticasone Propionate Hfa] 2 puff IH BID 04/14/23 Furosemide [Lasix*] 20 mg PO DAILY 04/14/23 Losartan Potassium [Cozaar*] 50 mg PO BID 04/14/23 hydroCHLOROthiazide [Hydrodiuril*] 50 mg PO DAILY 04/14/23 Amox/Clavulanate [Augmentin 875-125 Tab] 875 mg PO BID #14 tab 04/15/23 Aspirin [Aspirin EC 81 MG] 81 mg PO DAILY 30 Days #30 tab 04/15/23 Atorvastatin Calcium [Lipitor] 40 mg PO BEDTIME 30 Days #30 tab 04/15/23 - Past Medical/Surgical History Diabetic: No Review of Systems General: Weakness, Malaise Eyes: Unremarkable ENT: Unremarkable Respiratory: Unremarkable Cardiovascular: Unremarkable Gastrointestinal: Unremarkable Genitourinary: Unremarkable Musculoskeletal: Unremarkable Neurological: Unremarkable Lymphatics: Unremarkable Physical Examination - Vital Signs Pulse Ox (%): 100 - Physical Exam General: Alert, Oriented x3 HEENT: Atraumatic Neck: Supple Respiratory: Normal air movement Cardiovascular: Regular rate/rhythm, Normal S1 S2 Gastrointestinal: Soft and benign Musculoskeletal: No swelling Neurological: Normal speech, Normal strength at 5/5 x4 extr - Studies Laboratory Data (last 24 hrs) 07/13/23 07/13/23 03:13 03:13 WBC 11.40 H Hgb 10.9 L Hct 32.2 L Plt Count 190 Sodium 137 Potassium 3.3 L BUN 21 H Creatinine 1.15 H Glucose 185 H Magnesium 2.3 Total Bilirubin 0.3 AST 20 ALT 29 Alkaline Phosphatase 72 Assessment and Plan - Plan COPD exacerbation: Patient does have slight worsening of respiratory parameters per ABG. Continue breathing treatment, IV steroid therapy and as needed NIPPV. Monitor trend of ABG and pCO2. Hypertension: Monitor vital signs per unit protocol and continue antihypertensive medications. Goal blood pressures less than 130/80 mmHg. Hypokalemia: Potassium is low at 3.3. Replete and monitor. History of CHF: We will continue oral Lasix therapy. Hypothyroidism: Continue levothyroxine dose. History of anticoagulation use: We will continue Eliquis. Hyperlipidemia: Continue statin therapy. Prophylaxis: Eliquis to be continued for A-fib anticoagulation and DVT prophylaxis: CODE STATUS: Full code Disposition: We will treat her COPD and we will discharge her when she is deemed clinically stable. - Advance Directives Does patient have a Living Will: No Does patient have a Durable POA for Healthcare: No
--- NOTE | 2023-07-13 04:31 | EDPHYS ---
Physician Documentation [facility] Name: Sirena Purdy Age: 87 yrs Sex: Female : 1935 Arrival Date: 07/13/2023 Time: 02:13 Bed 13 Private MD: ED Physician Luther Lemons HPI: 07/13 04:28 This 87 yrs old Female presents to ER via EMS with complaints of SOB. ci 04:28 Patient is an 87-year-old female with PMH A-fib, hypertension, COPD, CHF who presents ci for respiratory distress. Patient has had shortness of breath for few days, family increased patient's Lasix but symptoms continue to worsen. Noted to be hypoxic 75% on room air and was placed on BiPAP. Patient received IV Lasix and Solu-Medrol 125 by EMS. Also received 3 DuoNebs and route.. Historical: - Allergies: 02:37 atorvastatin; jb4 02:37 Ceftin; jb4 02:37 Coumadin; jb4 02:37 Cymbalta; jb4 02:37 Levaquin; jb4 02:37 Linzess; jb4 02:37 Lyrica; jb4 02:37 Quinidine Sulfate; jb4 02:37 Xarelto; jb4 - PMHx: 02:37 Atrial fibrillation; Hypertension; jb4 - PSHx: 02:37 hysterectomy; neck; pacemaker; Cholecystectomy; CABG x 2; jb4 - Immunization history:: Adult Immunizations up to date. - Social history:: Smoking status: Patient denies any tobacco usage or history of. - History obtained from: EMS. Vital Signs: 02:34 BP 149 / 76; Pulse 76; Resp 20; Temp 97(TE); Pulse Ox 100% on BiPAP; FiO2 100 %; Weight jb4 39.92 kg (R); Height 5 ft. 4 in. (R); Pain 7/10; 03:30 BP 98 / 51; Pulse 71; Resp 18; Pulse Ox 98% on 2 lpm NC; jb4 02:34 Body Mass Index 15.11 (39.92 kg, 162.56 cm) jb4 02:34 Pain Scale: Adult jb4 MDM: 02:23 Patient medically screened. ci 04:36 Differential Diagnosis CHF exacerbation, COPD exacerbation, ACS, pneumonia, PE. ci 02/03 02:31 Order name: COVID-19 SARS RT PCR; Complete Time: 04:32 ci 02/03 02:31 Order name: Flu; Complete Time: 04:32 ci 02/03 02:31 Order name: Basic Metabolic Panel; Complete Time: 04:32 ci 02/03 02:31 Order name: CBC with Diff; Complete Time: 03:45 ci 02 02:31 Order name: LFT's; Complete Time: 04:32 ci 02/ 02:31 Order name: Magnesium; Complete Time: 04:32 ci 02/03 02:31 Order name: NT PRO-BNP; Complete Time: 04:32 ci 02/ 04:32 Interpretation: NT PRO-BNP 5551. ci 02 02:31 Order name: Troponin HS; Complete Time: 04:32 ci 02/03 02:31 Order name: ABG; Complete Time: 03:45 ci 07/13 03:53 Order name: Basic Metabolic Panel EDMS 02 03:53 Order name: Basic Metabolic Panel EDMS 07/13 03:53 Order name: CBC with Automated Diff EDMS 07/13 03:53 Order name: CBC with Automated Diff EDMS 07/13 03:53 Order name: Troponin High Sensitivity EDMS 02 03:53 Order name: Troponin High Sensitivity EDMS 02 03:53 Order name: Troponin High Sensitivity EDMS 02 03:53 Order name: Troponin High Sensitivity EDMS 07/13 02:31 Order name: Chest Single View XRAY ci 02 02:31 Order name: EKG; Complete Time: 02:32 ci 02 02:31 Order name: Cardiac monitoring; Complete Time: 03:15 ci 0203 02:31 Order name: EKG - Nurse/Tech; Complete Time: 03:15 ci 0203 02:31 Order name: IV Saline Lock; Complete Time: 02:58 ci 0203 02:31 Order name: Labs collected and sent; Complete Time: 03:15 ci 0203 02:31 Order name: O2 Per Protocol; Complete Time: 02:58 ci 02 02:31 Order name: O2 Sat Monitoring; Complete Time: 02:58 ci Administered Medications: No medications were administered Disposition Summary: 07/13/23 04:30 Hospitalization Ordered Notes: Hospitalization Status: Inpatient Admission ci Provider: Terry Stewart [facility] ci Condition: Stable ci Problem: an acute exacerbation ci Symptoms: have improved ci Bed/Room Type: Standard ci Room Assignment: 232(07/13/23 04:30) rv1 Diagnosis - Acute respiratory failure ci - Heart failure, unspecified ci - COPD/ Chronic obstructive pulmonary disease with (acute) exacerbation ci Forms: - Medication Reconciliation Form ci - SBAR form ci - Leadership Thank You Letter ci Critical care time excluding procedures: 04:28 Critical care time: Bedside Care: 35 minutes. Total time: 35 minutes ci Signatures: Dispatcher [employer] EDBang Fitch RN RN jb4 Marizol Avila rv1 Luther Lemons ci Corrections: (The following items were deleted from the chart) 04:30 04:30 ci rv1
--- NOTE | 2023-07-13 04:31 | ER ---
Nurse's Notes [facility] Name: Sirena Purdy Age: 87 yrs Sex: Female : 1935 Arrival Date: 07/13/2023 Time: 02:13 Bed 13 Private MD: Diagnosis: Acute respiratory failure;Heart failure, unspecified;COPD/ Chronic obstructive pulmonary disease with (acute) exacerbation Presentation: 07/13 02:34 Chief complaint: EMS states: Pt has a history of CHF. Family doubled up on Lasix and jb4 waited until pt was having more trouble breathing to call 911. Pt was satting 75% on RA. Pt was given 3 of albuterol, 125mg of solumedrol, and 40mg of Lasix and placed on Bi-pap at 100% FiO2. Coronavirus screen: At this time, the client does not indicate any symptoms associated with coronavirus-19. Ebola Screen: No symptoms or risks identified at this time. Initial Sepsis Screen: Does the patient meet any 2 criteria? No. Patient's initial sepsis screen is negative. Does the patient have a suspected source of infection? No. Patient's initial sepsis screen is negative. Risk Assessment: Do you want to hurt yourself or someone else? Patient reports no desire to harm self or others. Onset of symptoms was July 13, 2023. Transition of care: patient was not received from another setting of care. 02:34 Method Of Arrival: EMS: [facility] jb4 02:34 Acuity: OSMAN 2 jb4 Historical: - Allergies: 02:37 atorvastatin; jb4 02:37 Ceftin; jb4 02:37 Coumadin; jb4 02:37 Cymbalta; jb4 02:37 Levaquin; jb4 02:37 Linzess; jb4 02:37 Lyrica; jb4 02:37 Quinidine Sulfate; jb4 02:37 Xarelto; jb4 - PMHx: 02:37 Atrial fibrillation; Hypertension; jb4 - PSHx: 02:37 hysterectomy; neck; pacemaker; Cholecystectomy; CABG x 2; jb4 - Immunization history:: Adult Immunizations up to date. - Social history:: Smoking status: Patient denies any tobacco usage or history of. - History obtained from: EMS. Screenin:25 [facility] ED Fall Risk Assessment (Adult) History of falling in the last 3 months, jb4 including since admission No falls in past 3 months (0 pts) Confusion or Disorientation No (0 pts). Abuse screen: Denies threats or abuse. Nutritional screening: No deficits noted. Tuberculosis screening: No symptoms or risk factors identified. Assessment: 02:45 General: Appears distressed, uncomfortable, Behavior is calm, cooperative, appropriate jb4 for age. Pain: Denies pain. Neuro: Level of Consciousness is awake, alert, obeys commands, Oriented to person, place, time, situation. Cardiovascular: Patient's skin is warm and dry. Respiratory: Airway is patent Respiratory effort is even, unlabored, Respiratory pattern is regular, symmetrical. GI: No signs and/or symptoms were reported involving the gastrointestinal system. : No signs and/or symptoms were reported regarding the genitourinary system. EENT: No signs and/or symptoms were reported regarding the EENT system. Derm: Skin is intact, Skin is pink, warm \T\ dry. Musculoskeletal: Circulation, motion, and sensation intact. Range of motion: intact in all extremities. 04:00 Reassessment: Patient appears in no apparent distress at this time. Patient and/or jb4 family updated on plan of care and expected duration. Pain level reassessed. Patient is alert, oriented x 3, equal unlabored respirations, skin warm/dry/pink. Vital Signs: 02:34 BP 149 / 76; Pulse 76; Resp 20; Temp 97(TE); Pulse Ox 100% on BiPAP; FiO2 100 %; Weight jb4 39.92 kg (R); Height 5 ft. 4 in. (R); Pain 7/10; 03:30 BP 98 / 51; Pulse 71; Resp 18; Pulse Ox 98% on 2 lpm NC; jb4 02:34 Body Mass Index 15.11 (39.92 kg, 162.56 cm) jb4 02:34 Pain Scale: Adult jb4 ED Course: 02:16 Patient arrived in ED. rv1 02:20 Luther Lemons is Attending Physician. ci 02:37 Triage completed. jb4 02:37 Arm band placed on right wrist. jb4 02:38 Bang Vega, ALFREDA is Primary Nurse. jb4 03:19 Chest Single View XRAY In Process Unspecified. EDMS 04:25 Patient has correct armband on for positive identification. Bed in low position. Call jb4 light in reach. Side rails up X 1. 04:25 No provider procedures requiring assistance completed. Patient admitted, IV remains in jb4 place. 04:30 Terry Stewart MD is Hospitalizing Provider. ci Administered Medications: No medications were administered Outcome: 04:30 Decision to Hospitalize by Provider. ci 04:53 Admitted to Med/surg accompanied by tech, via wheelchair, room 232, with chart, jb 04:53 Condition: stable 04:53 Discharge instructions given to patient, Instructed on the need for admit, Demonstrated understanding of instructions, 04:53 Patient left the ED. jb4 Signatures: Dispatcher [employer] EDMS Bang Vega RN RN jb4 Marizol Avila rv1 Luther Lemons ci
[2023-07-13] MEDS ORDERED: ALBUTEROL INHALER 60 PUFF/8 GM IH PRN (06:29)
[2023-07-13 07:00] VITALS: BMI 19.4
--- NOTE | 2023-07-13 07:12 | P.PN ---
Date of Service: 07/13/23 Subjective: Feeling better today Breathing a little more comfortably today on 3L NC Per EMS patient was satting ~75% on room air prior to admission. Patient reports sudden onset of symptoms and continued to worsen. Rinard "normal" prior days leading up to event. Patient reports increased lower extremity edema over the last few weeks; saw Dr. Hussein in office yesterday and had lasix increased Daughter states patient has had some slowing worsening lower extremity edema for that last ~2 weeks, suddenly worse last night Has oxygen setup at home PRN but states she hasn't really needed to use it very often since getting it afebrile ROS: 10 point ROS as noted above, otherwise negative Physical Exam: GEN: Alert, oriented, NAD HEENT: Normal conjunctiva, sclera anicteric CV: Regular rate and rhythm (paced), 1+ b/l lower extremity edema to knees Pulm: Nonlabored respirations 3L NC, diminished at bases b/l ABD: Soft, nontender, nondistended Neuro: Normal speech, normal affect vitals reviewed Problem List: Acute hypoxic / hypercapnic respiratory failure likely secondary to Acute COPD exacerbation / Acute on chronic CHF h/o CAD s/p CABG x2 vessel Chronic A-fib, on anticoagulation with pacemaker in place Hypokalemia Hypertension Hyperlipidemia Hypothyroidism Acute hypoxic / hypercapnic respiratory failure likely secondary to Acute COPD exacerbation / Acute on chronic CHF h/o CAD s/p CABG x2 vessel Chronic A-fib, on anticoagulation with pacemaker in place Per EMS patient was satting ~75% on room air prior to admission. Patient reports sudden onset of symptoms. Rinard "normal" prior days leading up to event. Patient reports increased lower extremity edema over the last few weeks; saw Dr. Hussein in office yesterday and reportedly had lasix increased Family increased patients lasix dose prior to admission at home but respiratory symptoms continued to worsen so she came to our ER. given IV lasix, IV solu-medrol, duo nebs on route per EMS. ABG on admission with elevated PCO2 55; Placed on BiPAP briefly, deescalated to NC Has oxygen setup at home PRN. Patient states she hasn't really needed to use it very often. wean oxygen as tolerated trend trop, monitor on tele. Denies chest pain CXR (07/13): no significant effusions Cardiology consulted recommends IV lasix possibly copd componenet, Pulm - Dr. Bailon consulted change IV steroid to prednisone Continue IV lasix continue home nebs Continue home eliquis Hypokalemia Replete PRN Hypertension Hyperlipidemia Hypothyroidism confirm home meds, restart as appropriate VTE: home eliquis Code: Full Dispo: Home, ~1-2 days Pending breathing improves, cardiac recs.
[2023-07-13] MEDS: APIXABAN 2.5 MG TABLET PO SCH ×2 (08:45→20:35)
[2023-07-13] MEDS: DIVALPROEX DR 500MG TAB PO SCH ×2 (08:45→18:03)
[2023-07-13] MEDS: FAMOTIDINE 20 MG TAB PO SCH (08:45)
[2023-07-13] MEDS ORDERED: ENOXAPARIN 30 MG/0.3 ML SQ SCH (09:00)
[2023-07-13] MEDS ORDERED: carvediloL 12.5 MG TAB PO SCH (09:00)
[2023-07-13] MEDS ORDERED: FUROSEMIDE 20 MG TABLET PO SCH (09:00)
[2023-07-13] MEDS ORDERED: METHYLPREDNISOLONE 40 MG INJ IV SCH (09:00)
[2023-07-13] MEDS ORDERED: IPRATROPIUM BROM 0.5MG/2.5ML NEB PRN (11:25)
--- NOTE | 2023-07-13 11:26 | P.CNS ---
Date of Consult: 07/13/23 Reason for Consult: COPD exacerbation Chief Complaint: COPD exacerbation. History of Present Illness: Patient is 87 years of age with history of COPD hypertension atrial fibrillation came to the emergency room with acute shortness of breath was unable to ambulate to the bathroom to be mildly hypoxic hypercarbic she is currently doing much better pliant with her inhalers using Trelegy and albuterol at home She denies any fever or cough or chest pain [facility] Allergy (Verified 07/13/23 05:24) Rash Home Medications: Albuterol Inhaler [Ventolin Inhaler*] 2 puff IH Q6HP PRN 07/13/23 Amlodipine [Norvasc*] 5 mg PO DAILY 07/13/23 Apixaban [Eliquis *] 2.5 mg PO BID 07/13/23 Buspirone HCl 7.5 mg PO BID 07/13/23 Divalproex Sodium 500 mg PO Q12H 07/13/23 Ezetimibe [Zetia*] 10 mg PO DAILY 07/13/23 Famotidine [Pepcid*] 20 mg PO BID 07/13/23 Fexofenadine HCl 60 mg PO BID 07/13/23 Furosemide [Lasix*] 20 mg PO LUNCH 07/13/23 Furosemide [Lasix*] 40 mg PO BREAKFAST 07/13/23 Hydralazine HCl [Apresoline] 50 mg PO TIDP PRN 07/13/23 Hydrocodone 10/APAP 325 [[place] 10/325*] 10 mg PO Q6HP PRN 07/13/23 Losartan Potassium 100 mg PO DAILY WITH BREAKFAST 07/13/23 Losartan Potassium [Cozaar*] 50 mg PO BEDTIME 07/13/23 Mv-Min/FA/Vit K/Lutein/Zeaxant [Preservision Areds 2 Plus Mv] 1 cap PO DAILY 07/13/23 Ondansetron [Zofran (Odt)*] 4 mg PO Q6HP PRN 07/13/23 Rivastigmine Tartrate [Rivastigmine] 4.5 mg PO BID 07/13/23 carvediloL [Coreg*] 25 mg PO BID 07/13/23 - Past Medical/Surgical History Diabetic: No -: htn -: hld -: cholecystectomy -: open heart sx -: pacemaker - Social History Alcohol use: No CD- Drugs: Yes Caffeine use: No Place of Residence: Home Review of Systems 10-point ROS is otherwise unremarkable General: Weakness Respiratory: Shortness of Breath Physical Examination Temp Pulse Resp BP Pulse Ox 97.3 F 74 16 117/53 L 100 07/13/23 08:00 07/13/23 08:00 07/13/23 08:00 07/13/23 08:00 07/13/23 08:00 General: Alert, In no apparent distress, Oriented x3 HEENT: Atraumatic Neck: Supple Respiratory: Clear to auscultation bilaterally, Diminished Cardiovascular: No edema, Regular rate/rhythm, Normal S1 S2 Laboratory Data (last 24 hrs) 07/13/23 07/13/23 03:13 03:13 WBC 11.40 H Hgb 10.9 L Hct 32.2 L Plt Count 190 Sodium 137 Potassium 3.3 L BUN 21 H Creatinine 1.15 H Glucose 185 H Magnesium 2.3 Total Bilirubin 0.3 AST 20 ALT 29 Alkaline Phosphatase 72 - Problems (1) COPD exacerbation Current Visit: Yes Status: Acute Plan: Patient is 87 years of age history of COPD admitted with a presumed exacerbation currently doing well all labs reviewed mild renal insufficiency chest x-ray shows cardiomegaly otherwise clear patient is mildly hypokalemic she is anticoagulated vital signs stable chest x-ray lab work reviewed patient was mildly [place] hypercarbic add scheduled bronchodilators evaluate room air O2 possible discharge tomorrow on low-dose prednisone
[2023-07-13] MEDS: ARFORMOTEROL TARTRATE 15 MCG/2 ML VIAL.NEB NEB SCH ×3 (12:10→20:19)
[2023-07-13] MEDS: HYDROCODONE/APAP 10/325 TAB PO PRN ×2 (12:49→20:35)
[2023-07-13] MEDS: FUROSEMIDE 20 MG/ 2ML VIAL IV SCH (16:57)
[2023-07-13] MEDS: predniSONE 20 MG TAB PO SCH ×2 (17:00→20:35)
[2023-07-13] MEDS: carvediloL 25 MG TAB PO SCH (20:35)
--- NOTE | 2023-07-13 21:57 | RAD REPORT ---
EXAM DESCRIPTION: XR CHEST 1 VIEW CLINICAL HISTORY: SOB COMPARISON: None. TECHNIQUE: XR CHEST 1 VIEW 07/13/2023 2:31 AM BDR FINDINGS: Heart is enlarged. Left dual-chamber pacemaker is present. Sternotomy was performed. Lungs are clear without consolidation, atelectasis, mass or edema. There is no pleural effusion. There is no pneumothorax. There are no acute osseous findings. IMPRESSION: Clear lungs. Electronically signed by: Pilo Gupta MD 07/13/2023 03:42 AM BDR Due to temporary technical issues with the PACS/Fluency reporting system, reports are being signed by the in house radiologists without review as a courtesy to insure prompt reporting. The interpreting radiologist is fully responsible for the content of the report.
[2023-07-14] MEDS: HYDROCODONE/APAP 10/325 TAB PO PRN ×2 (03:05→18:27)
[2023-07-14 04:59] LABS: Absolute Lymphocytes (CBC) 1.2 K/uL (0.7-4.9); Hematocrit 29.2 % (36.0-45.0); Lymphocytes % 13.3 % (15.3-44.8); MPV 8.1 fL (7.6-11.3); Platelets 183 thou/uL (152-406); RBC Red Blood Cell Count 3.07 M/uL (3.86-4.86)
[2023-07-14 05:08] LABS: Magnesium 2.2 mg/dL (1.6-2.4); Phosphorus 4.7 mg/dL (2.5-4.9); Potassium 3.4 mEq/L (3.5-5.1)
[2023-07-14] MEDS: DIVALPROEX DR 500MG TAB PO SCH ×2 (07:00→21:45)
[2023-07-14] MEDS: ARFORMOTEROL TARTRATE 15 MCG/2 ML VIAL.NEB NEB SCH ×2 (07:52→20:00)
[2023-07-14] MEDS ORDERED: POTASSIUM 25 MEQ EFFERV TAB PO ONE (09:00)
[2023-07-14] MEDS: BUSPIRONE HCL 5 MG TABLET PO SCH ×2 (09:10→21:40)
[2023-07-14] MEDS: predniSONE 20 MG TAB PO SCH ×2 (09:12→21:41)
[2023-07-14] MEDS: carvediloL 25 MG TAB PO SCH ×2 (09:12→21:41)
[2023-07-14] MEDS: APIXABAN 2.5 MG TABLET PO SCH ×2 (09:12→21:41)
[2023-07-14] MEDS: FUROSEMIDE 20 MG/ 2ML VIAL IV SCH (09:12)
[2023-07-14] MEDS: FAMOTIDINE 20 MG TAB PO SCH (09:12)
[2023-07-14] MEDS ORDERED: DIVALPROEX DR 500MG TAB PO ONE (10:00)
--- NOTE | 2023-07-14 11:02 | P.PN ---
Subjective Date of Service: 07/14/23 Chief Complaint: COPD exacerbation. Subjective: Improving (Patient is improving and feels very weak) Review of Systems General: Weakness Respiratory: Shortness of Breath Physical Examination - Vital Signs Temperature: 97.4 F Blood Pressure: 127/60 Pulse: 70 Respirations: 16 Pulse Ox (%): 91 - Physical Exam General: Alert, In no apparent distress, Oriented x3 Respiratory: Clear to auscultation bilaterally, Diminished Cardiovascular: No edema, Regular rate/rhythm, Normal S1 S2 Assessment And Plan - Current Problems (Diagnosis) (1) COPD exacerbation Current Visit: Yes Status: Acute Plan: Patient admitted with COPD exacerbation doing somewhat better still feels weak labs reviewed mildly hypokalemic renal function is slightly worse at 1.9 vital signs oxygenation satisfactory oxygen levels are low may qualify for home O2 ambulate discharge on low-dose prednisone and has trilogy at home
--- NOTE | 2023-07-14 11:35 | P.PN ---
Date of Service: 07/14/23 Subjective: Family reports that patient does not have home oxygen setup at home currently on 4L NC - SPO2 satting low 90s Eval room air O2 sats for home oxygen no acute events overnight afebrile ROS: 10 point ROS as noted above, otherwise negative Physical Exam: GEN: Alert, oriented, NAD HEENT: Normal conjunctiva, sclera anicteric CV: Regular rate and rhythm (paced), 1+ b/l lower extremity edema to knees Pulm: Nonlabored respirations 4L NC, diminished at bases b/l ABD: Soft, nontender, nondistended Neuro: Normal speech, normal affect vitals reviewed Problem List: Acute hypoxic / hypercapnic respiratory failure likely secondary to Acute on chronic CHF with possible acute COPD component h/o CAD s/p CABG x2 vessel Chronic A-fib, on anticoagulation with pacemaker in place Hypokalemia Hypertension Hyperlipidemia Hypothyroidism Acute hypoxic / hypercapnic respiratory failure likely secondary to Acute on chronic CHF with possible acute COPD component h/o CAD s/p CABG x2 vessel Chronic A-fib, on anticoagulation with pacemaker in place Per EMS patient was satting ~75% on room air prior to admission. Patient reports sudden onset of symptoms. [place] "normal" prior days leading up to event. Patient reports increased lower extremity edema over the last few weeks; saw Dr. Hussein in office yesterday and reportedly had lasix increased Family increased patients lasix dose prior to admission at home but respiratory symptoms continued to worsen so she came to our ER. given IV lasix, IV solu-medrol, duo nebs on route per EMS. ABG on admission with elevated PCO2 55; Placed on BiPAP briefly, deescalated to NC wean oxygen as tolerated. currently on 4L NC Patient does not have home oxygen setup per family. Patient previously mentioned having home O2 setup. Eval room air O2 sats for home oxygen troponins negative, monitor on tele. Denies chest pain CXR (/): no significant effusions Cardiology consulted recommends IV lasix possibly copd componenet, Pulm - Dr. Bailon consulted continue PO prednisone Continue IV lasix continue home nebs Continue home eliquis Hypokalemia Replete PRN Hypertension Hyperlipidemia Hypothyroidism confirm home meds, restart as appropriate VTE: home eliquis Code: Full Dispo: Home, ~1 day Pending breathing improves, wean oxygen vs home oxygen
[2023-07-15] MEDS: HYDROCODONE/APAP 10/325 TAB PO PRN ×2 (04:11→10:02)
[2023-07-15 07:34] VITALS: TEMP 97.6
[2023-07-15] MEDS: ARFORMOTEROL TARTRATE 15 MCG/2 ML VIAL.NEB NEB SCH (07:43)
[2023-07-15 08:00] LABS: Absolute Lymphocytes (CBC) 1.5 K/uL (0.7-4.9); Hematocrit 32.4 % (36.0-45.0); Lymphocytes % 12.8 % (15.3-44.8); MCV 95.5 fL (80-100); MPV 8.2 fL (7.6-11.3); Platelets 217 thou/uL (152-406); RBC Red Blood Cell Count 3.39 M/uL (3.86-4.86)
[2023-07-15 08:13] LABS: Magnesium 2.3 mg/dL (1.6-2.4); Potassium 4.4 mEq/L (3.5-5.1)
[2023-07-15] MEDS: BUSPIRONE HCL 5 MG TABLET PO SCH (08:50)
[2023-07-15] MEDS: APIXABAN 2.5 MG TABLET PO SCH (08:50)
[2023-07-15] MEDS: predniSONE 20 MG TAB PO SCH (08:50)
[2023-07-15] MEDS: DIVALPROEX DR 500MG TAB PO SCH (08:50)
[2023-07-15] MEDS: FAMOTIDINE 20 MG TAB PO SCH (08:50)
[2023-07-15] MEDS: carvediloL 25 MG TAB PO SCH (08:51)
[2023-07-15] MEDS ORDERED: RIVASTIGMINE TARTRATE 1.5 MG PO SCH (09:00)
[2023-07-15] MEDS ORDERED: RIVASTIGMINE TARTRATE 4.5 MG PO SCH (09:00)
[2023-07-15] MEDS ORDERED: FEXOFENADINE HCL 60 MG PO SCH (09:00)
[2023-07-15 09:08] VITALS: BP 138/65
[2023-07-15 10:30] VITALS: O2SAT 95
--- NOTE | 2023-07-15 12:29 | P.PN ---
Subjective Date of Service: 07/15/23 Chief Complaint: COPD exacerbation. Subjective: Improving (Patient is doing well still feeling a little weak and will need some physical therapy breathing has improved) Review of Systems General: Weakness Respiratory: Shortness of Breath Physical Examination - Vital Signs Temperature: 97.6 F Blood Pressure: 138/65 Pulse: 69 Respirations: 16 Pulse Ox (%): 95 - Physical Exam General: Alert, In no apparent distress, Oriented x3 Respiratory: Clear to auscultation bilaterally, Diminished Cardiovascular: No edema, Regular rate/rhythm Assessment And Plan - Current Problems (Diagnosis) (1) COPD exacerbation Current Visit: Yes Status: Acute Plan: Patient admitted with COPD exacerbation doing well plan to ambulate possible discharge oxygenation satisfactory patient does not qualify for home O2 function is also stable discharge home on prednisone 10 mg twice a day for a week follow- up with me in 2 weeks patient has a long-acting bronchodilator at home
--- NOTE | 2023-07-15 13:49 | P.DS ---
Admission Date: 07/13/23 Discharge Date: 07/15/23 Disposition: ROUTINE DISCHARGE Discharge Condition: FAIR Reason for Admission: COPD exacerbation. Brief History of Present Illness: 87-year-old female patient with past medical history significant for CHF, COPD, hypertension, hyperlipidemia, chronic atrial fibrillation on anticoagulation with Eliquis came to the emergency room with complaint of shortness of breath and lethargy. She had ABG done that revealed elevated pCO2 of 55. She also had issues with hypoxia so she was put on BiPAP therapy and she was asked to be evaluated for inpatient care for observation. She denied overt episode of chest pain, fever, chills, rigor, nausea, vomiting. Initial lab showed low potassium at 3.3 however hemoglobin was within acceptable limit. Chest x-ray did not show any infiltrate. Patient was hospitalized for further management Hospital Course: Diagnosis Acute hypoxic / hypercapnic respiratory failure likely secondary to Acute on chronic CHF with possible acute COPD component h/o CAD s/p CABG x2 vessel Chronic A-fib, on anticoagulation with pacemaker in place Hypokalemia Hypertension Hyperlipidemia Hypothyroidism Acute hypoxic / hypercapnic respiratory failure likely secondary to Acute on chronic CHF with possible acute COPD component h/o CAD s/p CABG x2 vessel Chronic A-fib, on anticoagulation with pacemaker in place Per EMS patient was satting ~75% on room air prior to admission. Patient reported sudden onset of symptoms. Patient treated with IV lasix, IV solu-medrol, duo nebs on route per EMS. ABG on admission had elevated PCO2 55; Placed on BiPAP briefly and deescalated to NC Patient eventually weaned off O2 to room air. She did not desaturate on room air with ambulation and did not qualify for home oxygen. Pulm - Dr. Bailon saw patient and assisted with management. Patient discharged with oral prednisone per Dr. Bailon ongoing recommendation. continued home nebs Continued home eliquis Hypokalemia Corrected Hypertension Held antihypertensives during the hospital stay due to low normal BP. Patient can resume her home antihypertensives if her BP measured at home stays consistently greater than 150 Vital Signs/Physical Exam: Temp Pulse Resp BP Pulse Ox 97.6 F 69 16 138/65 95 07/15/23 12:29 07/15/23 12:29 07/15/23 12:29 07/15/23 12:29 07/15/23 12:29 General: Alert, In no apparent distress HEENT: Mucous membr. moist/pink Neck: Supple, JVD not distended Respiratory: Clear to auscultation bilaterally, Normal air movement Cardiovascular: No edema, Normal S1 S2, Irregular heart rate/rhythm Gastrointestinal: Soft and benign, Non-distended, No tenderness Musculoskeletal: No swelling Integumentary: No rashes, No cyanosis Neurological: Normal strength at 5/5 x4 extr Laboratory Data at Discharge: WBC 11.80 thou/uL (4.3-10.9) H 07/15/23 07:00 Hgb 11.0 g/dL (12.0-15.0) L D 07/15/23 07:00 Hct 32.4 % (36.0-45.0) L 07/15/23 07:00 Plt Count 217 thou/uL (152-406) 07/15/23 07:00 Sodium 134 mEq/L (136-145) L 07/15/23 07:00 Potassium 4.4 mEq/L (3.5-5.1) D 07/15/23 07:00 BUN 42 mg/dL (7-18) H 07/15/23 07:00 Creatinine 1.25 mg/dL (0.55-1.02) H 07/15/23 07:00 Glucose 120 mg/dL (74-106) H 07/15/23 07:00 Phosphorus 4.7 mg/dL (2.5-4.9) 07/14/23 03:43 Magnesium 2.3 mg/dL (1.6-2.4) 07/15/23 07:00 Total Bilirubin 0.3 mg/dL (0.2-1.0) 07/13/23 03:13 AST 20 U/L (15-37) 07/13/23 03:13 ALT 29 U/L (13-56) 07/13/23 03:13 Alkaline Phosphatase 72 U/L (45-117) 07/13/23 03:13 Home Medications: Albuterol Inhaler [Ventolin Inhaler*] 2 puff IH Q6HP PRN 07/13/23 Amlodipine [Norvasc*] 5 mg PO DAILY 07/13/23 Apixaban [Eliquis *] 2.5 mg PO BID 07/13/23 Buspirone HCl 7.5 mg PO BID 07/13/23 Divalproex Sodium 500 mg PO Q12H 07/13/23 Ezetimibe [Zetia*] 10 mg PO DAILY 07/13/23 Famotidine [Pepcid*] 20 mg PO BID 07/13/23 Fexofenadine HCl 60 mg PO BID 07/13/23 Furosemide [Lasix*] 20 mg PO LUNCH 07/13/23 Furosemide [Lasix*] 40 mg PO BREAKFAST 07/13/23 Hydrocodone 10/APAP 325 [[place] 10/325*] 10 mg PO Q6HP PRN 07/13/23 Losartan Potassium 100 mg PO DAILY WITH BREAKFAST 07/13/23 Losartan Potassium [Cozaar*] 50 mg PO BEDTIME 07/13/23 Mv-Min/FA/Vit K/Lutein/Zeaxant [Preservision Areds 2 Plus Mv] 1 cap PO DAILY 07/13/23 Ondansetron [Zofran (Odt)*] 4 mg PO Q6HP PRN 07/13/23 Rivastigmine Tartrate [Rivastigmine] 4.5 mg PO BID 07/13/23 carvediloL [Coreg*] 25 mg PO BID 07/13/23 Ipratropium/Albuterol Sulfate [Iprat-Albut 0.5-3(2.5) mg/3 ml] 3 ml IH Q6H PRN #120 unit 07/15/23 Nebulizer 1 each QID #1 ea 07/15/23 predniSONE [Deltasone*] 10 mg PO BID #14 tab 07/15/23 New Medications: predniSONE [Deltasone*] 10 mg PO BID #14 tab Ipratropium/Albuterol Sulfate [Iprat-Albut 0.5-3(2.5) mg/3 ml] 3 ml IH Q6H PRN #120 unit PRN Reason: Shortness Of Breath Nebulizer 1 each MC QID #1 ea Physician Discharge Instructions: Patient presented with worsening shortness of breath, lower extremity edema, weakness. Suspect acute CHF exacerbation with possible COPD component. BNP 5k on admission. Troponins were negative. CXR without effusions / acute osseous findings. Cardiology and pulmonology were consulted. Patient noted to see Dr. Hussein - mixer machine feeder - in office the day before admission and reportedly had her lasix increased due to increased lower extremity edema / worsening SOB. Discussed with Dr. Hussein who recommended medical management with further diuresis. Patient had improvement with IV lasix, low dose steroids, duonebs and oxygen supplementation. Patient was feeling better, breathing more comfortably, lower extremity edema improving, and was deemed stable for discharge home. Medications: low-dose prednisone Stop taking losartan / amlodipine for now. Blood pressure has been intermittently low to low-normal off her home amlodipine / losartan. Advised to continue to hold home amlodipine / losaratan for now. Check blood pressure daily. If BP is consistently over 150 systolic, can restart home losartan. If BP is still consistently > 150 after a few hours of taking losartan, can restart amlodipine Advised to keep daily log of BP readings to take to follow up appointments in case home antihypertensives need to be adjusted / restarted. continue other home meds as previously prescribed. Follow up: PCP 3-5 days Cardiology 1-2 weeks Pulmonology 2-4 weeks Diet: AHA Activity: Fall precautions Followup: Cortez Batista MD [Primary Care Provider] - Time spent managing pt's care (in minutes): 28
--- NOTE | 2023-07-15 14:08 | CON ---
Date of Consultation: 07/15/2023 Reason For Consultation: CHF exacerbation. History Of Present Illness: 87-year-old female, history of CHF, COPD, hypertension, dyslipidemia, ch ronic atrial fibrillation, and she was sent from my office this past Saturday due to significant shortn ess of breath, lower extremity edema, and orthopnea. Also, she has COPD. She was having a hard time breathing and she was admitted, diuresed over the weekend and she is feeling much better now. Past Medical History: As outlined above in the HPI. Medications: Refer to reconciliation sheet for detailed list. Allergies: LEVOFLOXACIN. Family History: No premature coronary artery disease or cancer. Social History: She does not drink or use any drugs. Review of Systems: All systems reviewed and they were negative except as mentioned in the HPI. Physical Examination: Vital Signs: Reviewed. Head and Neck: Pupils are equal, reactive to light. Intact eye movements. No cervical lymphadenopa thy. No JVD. Neck is supple. Thyroid is not enlarged. Lungs: Clear to auscultation bilaterally with the scattered wheezing. No accessory muscle use or mu scle retraction. Heart: Irregular. No extra sounds. Abdomen: Soft, nontender. Bowel sounds positive. No organomegaly. No masses or hernia. No rigidi ty or rebound. Extremities: No clubbing or cyanosis. Intact pulses. Skin: No rash or nodules. Neurologic: Alert, awake, oriented x3. No acute focal deficits appreciated. Lymph Nodes: No cervical or axillary lymphadenopathy. Investigations: Labs were reviewed. Assessment And Recommendations: 1.Acute on chronic diastolic heart failure exacerbation. She was clearly overloaded. When hospital ization, responded very well to IV Lasix now, she is on oral 40 mg daily, to continue. From Cardiolo gy standpoint, she can be released and follow up with me in the office in 1 week. 2.Atrial fibrillation. If this issue is controlled, continue current management including Eliquis. 3.Chronic obstructive pulmonary disease exacerbation. She seems to be doing much better clinically. Continue current management. 4.Dyslipidemia. Continue statin. Cardiology will sign off from the case and we will plan to see her on an outpatient basis within a we ek of discharge. SR/MODL Voice ID: [id number] Report ID: [id number]
--- NOTE | 2023-07-15 15:06 | EKG ---
Test Date: 2023-07-13 Test Time: 02:50:46 Finance Business Partner: JUANITA MEASUREMENT RESULTS: Intervals: Rate: 70 [place]: QRSD: 100 QT: 450 QTc: 486 [place]: P: IL: QRS: 156 T: -80 INTERPRETIVE STATEMENTS: Paced rhythm Indeterminate axis Incomplete right bundle branch block ST & Marked T wave abnormality, consider inferior ischemia ST & Marked T wave abnormality, consider anterolateral ischemia Prolonged QT Abnormal ECG Compared to ECG 04/14/2023 11:14:30 Indeterminate axis now present Incomplete right bundle-branch block now present T-wave abnormality now present Possible ischemia now present Prolonged QT interval now present Ventricular-paced complex(es) or rhythm no longer present Electronically Signed On 07-15-23 15:01:05 OPERATING TABLE ASSEMBLER by Chris Hussein
--- NOTE | 2023-07-15 15:06 | EKG ---
Test Date: 2023-07-13 Test Time: 02:59:48 Biogeographer: JUANITA MEASUREMENT RESULTS: Intervals: Rate: 73 AK: QRSD: 94 QT: 454 QTc: 500 [place]: P: AK: QRS: -30 T: -83 INTERPRETIVE STATEMENTS: Atrial fibrillation with frequent ventricular-paced complexes Left axis deviation ST & Marked T wave abnormality, consider inferior ischemia ST & Marked T wave abnormality, consider anterolateral ischemia Prolonged QT Abnormal ECG Compared to ECG 07/13/2023 02:50:46 Left-axis deviation now present Indeterminate axis no longer present Incomplete right bundle-branch block no longer present T-wave abnormality still present Possible ischemia still present Electronically Signed On 07-15-23 15:00:44 TRACER POWDER BLENDER by Chris Hussein
--- NOTE | 2023-07-15 15:06 | EKG ---
Test Date: 2023-07-13 Test Time: 03:00:50 Electric Motor Analyst: JUANITA MEASUREMENT RESULTS: Intervals: Rate: 70 ME: QRSD: 194 QT: 516 QTc: 557 [place]: P: ME: QRS: 234 T: 94 INTERPRETIVE STATEMENTS: Ventricular-paced rhythm Abnormal ECG Compared to ECG 07/13/2023 02:59:48 Atrial fibrillation no longer present Left-axis deviation no longer present T-wave abnormality no longer present Possible ischemia no longer present Prolonged QT interval no longer present Electronically Signed On 07-15-23 15:00:41 CHEMICAL PRODUCTION MACHINE OPERATOR by Chris Hussein
[2023-07-16] MEDS ORDERED: FUROSEMIDE 20 MG TABLET PO SCH (08:00)
== END 2023-07-15 14:28 | disposition home or self-care (01) ==
LOC: ER 02:13 → ERHOLD 03:48 → 2ND 04:19
PROVIDERS: ADMIT Internal Medicine Nephrology; ATTEND Internal Medicine
DX: J44.1 Chronic obstructive pulmonary disease with (acute) exacerbation (principal); J96.21 Acute and chronic respiratory failure with hypoxia; I50.9 Heart failure, unspecified; I10 Essential (primary) hypertension; I48.11 Longstanding persistent atrial fibrillation; I25.10 Atherosclerotic heart disease of native coronary artery without angina pectoris; E87.6 Hypokalemia; E03.9 Hypothyroidism, unspecified; E78.5 Hyperlipidemia, unspecified; Z95.1 Presence of aortocoronary bypass graft; Z79.01 Long term (current) use of anticoagulants; Z11.52 Encounter for screening for COVID-19
CPT/HCPCS: 93005 ×3; 85025 ×3; 80048 ×3; 36415 ×3; 83735 ×3; 84100; 80076; 84484 ×4; 83880; 87635; 87804 ×2; 71045; 97116; 97161; 97530; 94640; 82805; 36600; 94660; J7512 ×4; J1940 ×2; J7605 ×4; G0378 ×5

== ENCOUNTER 2024-05-27 19:07 | Inpatient (IN) | payer OTHER ==
--- OUTSIDE RECORDS SUMMARY | 2024-05-27 19:12 | XMS REPORT | Continuity of Care Document ---
Author Name Unknown Address [address] [facility]. [address] [place] [address] [facility] thconnect Address [address] [facility] [address] [place] [address] Care Team Providers Care Labor Relations Supervisor Name Role Phone Chuy Castillo MD Primary Care Physician [phone] CHUY CASTILLO Attending Clinician Unavailable ARAM RONDON Attending Clinician Unavail able ARAM RONDON Attending Clinician Unavail able Chuy Castillo MD Attending Clinician [phone] Aram Rondon MD Attending Clinician JING ZHOU Attending Clinician Unavailable Divine Wills MA Attending Clinician Unavailab Joyce Magallon LMSW Attending Clinician SONNY HUNT Attending Clinician Unavailab SONNY Garcia Attending Clinician Unavailab sebastian Hunt NP, Snony Attending Clinician [phone] Jing Reese Attending Clinician [phone] JENNIFER GOFF Attending Clinician Unavailab JENNIFER Amaya Attending Clinician Unavailab Jing Lomas Attending Clinician +[phone] Chuy Castillo MD Attending Clinician +[phone] Doctor Unassigned, Lambert Attending Clinician U navailable Pob, [facility] Attending Clinician Unavailnoa Jacob RN, Emy Holman Attending Clinician Saray vailaJennifer Joe DO Attending Clinician [phone] LAUREN BOLTON Attending Clinician Unavailable Lauren Bolton MD Attending Clinician [phone] River Bentley MD Attending Clinician + [phone] RIVER BENTLEY Attending Clinician Unavailab Taylor Rodriguez MD Attending Clinician [phone], [facility] Attending Clinician Unavailable JING SEALS Attending Clinician Unavailable CHEYENNE TAMAYO Attending Clinician Unavailable MCKENZIE PÉREZ Attending Clinician Unavailab JESSE Powers Attending Clinician Unavail able Jesse Baum MD Attending Clinician Radiology Attending Clinician Unavailable YAO ORLANDO Attending [...] Expiration Date Source [employer] PPO [id number] 2020 00:00:00 [employer] [id number] 2024 00:00:00 2 C [id number] 2020 00:00:00 [employer] PPO NA 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 Disease Active 11-12 00:00: 00 [facility] Slow transit constipati on Slow transit constipati on Disease Active 2022-06 00:00: 00 [facility] Anxiety, generalize d Anxiety, generalize d Disease Active 2022-06 00:00: 00 [facility] Memory changes Memory changes Disease Active 2022-06 00:00: 00 [facility] Decreased GFR Decreased GFR Disease Active 2022-06 00:00: 00 [facility] Prediabete s Prediabete s Disease Active 2022-06 00:00: 00 [facility] Cardiac pacemaker in situ Cardiac pacemaker in situ Disease Active 01-15 00:00: 00 [facility] At risk for injury associated with anticoagul ation At risk for injury associated with anticoagul ation Disease Active 01-15 00:00: 00 [facility] Essential hypertensi on, benign Essential hypertensi on, benign Disease Active 01-15 00:00: 00 [facility] History of lung cancer History of lung cancer Disease Active 8 00:00: 00 [facility] Post-nasal drip Post-nasal drip Disease Active 8 00:00: 00 [facility] Subacute maxillary sinusitis Subacute maxillary sinusitis Disease Active 2023-0 8-08 00:00: 00 [facility] Hypertensi ve urgency Hypertensi ve urgency Disease Active 6-15 00:00: 00 [facility] Chronic allergic rhinitis Chronic allergic rhinitis Disease Active 2021-06 1-30 00:00: 00 [facility] Mild depression Mild depression Disease Active 2021-06 130 00:00: 00 [facility] Anxiety Anxiety Disease Active 2021-06 00:00: 00 [facility] 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 Disease Active 2021-06 0-18 00:00: 00 [facility] Chronic atrial fibrillati on Chronic atrial fibrillati on Disease Active 2021-06 0-18 00:00: 00 [facility] Fibromyalg ia Fibromyalg ia Disease Active 2021-06 0-18 00:00: 00 [facility] 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 Disease Active 2021-06 0-18 00:00: 00 [facility] Non-small cell cancer of right lung Non-small cell cancer of right lung Disease Active 2021-06 0-18 00:00: 00 [facility] Radiation gastritis Radiation gastritis Disease Active 2021-06 0-18 00:00: 00 [facility] S/P radiation therapy S/P radiation therapy Disease Active 2021-06 0-18 00:00: 00 [facility] SOB (shortness of breath) SOB (shortness of breath) Disease Active 2021-06 0-18 00:00: 00 [facility] Chronic pain syndrome Chronic pain syndrome Disease Active 2021-06 0-18 00:00: 00 [facility] 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 Disease Active 2021-06 0-18 00:00: 00 [facility] Lumbar radicular syndrome Lumbar radicular syndrome Disease Active 2021-06 0-18 00:00: 00 [facility] Chronic cystitis Chronic cystitis Disease Active 2021-06 0-18 00:00: 00 [facility] Screening for diabetes mellitus (DM) Screening for diabetes mellitus (DM) Disease Active 2021-06 0-18 00:00: 00 [facility] Pain management contract signed Pain management contract signed Disease Active 2021-06 00:00: 00 [facility] Chest pain Chest pain Disease Active 2005-06 00:00: 00 Overview: Formattin g of this note might be different from the original. 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 Formattin g of this note might be different from the original. 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 [facility] Coronary artery disease CAD (coronary artery disease) Problem Active [facility] Allergies, Adverse Reactions, Alerts Allergy Name Allergy Type Status Severity Reaction(s) Onset Date Inactive Date Treating Clinician Comments Source LEVOFLOX ACIN DRUG INGREDI Active Unknown-Cmnt 2021-06 018 00:00: 00 [facility] LINACLOT ARTIE DRUG INGREDI Active Unknown-Cmnt 2021-06 018 00:00: 00 [facility] PREGABAL IN DRUG INGREDI Active Unknown-Cmnt 2021-06 018 00:00: 00 [facility] QUINIDIN E DRUG INGREDI Active Unknown-Cmnt 2021-06 0-18 00:00: 00 [facility] RIVAROXA BAN DRUG INGREDI Active Unknown-Cmnt 2021-06 0-18 00:00: 00 [facility] Atorvast atin Propensi ty to adverse reaction s Active Unknown - See comments 2021-06 0-18 00:00: 00 [facility] Cefuroxi me Axetil Propensi ty to adverse reaction s Active Unknown - See comments 2021-06 0-18 00:00: 00 [facility] ATORVAST ATIN DRUG INGREDI Active Unknown-Cmnt 2021-06 0-18 00:00: 00 [facility] CEFUROXI ME AXETIL DRUG INGREDI Active Unknown-Cmnt 2021-06 0-18 00:00: 00 [facility] CELECOXI B DRUG INGREDI Active Unknown-Cmnt 2021-06 0-18 00:00: 00 [facility] WARFARIN DRUG INGREDI Active Unknown-Cmnt 2021-06 0-18 00:00: 00 [facility] DULOXETI NE DRUG INGREDI Active Unknown-Cmnt 2021-06 0-18 00:00: 00 [facility] Atorvast atin Propensi ty to adverse reaction s Active Unknown 2021-06 0-18 00:00: 00 [facility] Celecoxi b Propensi ty to adverse reaction s Active Unknown 2021- 0-18 00:00: 00 [facility] Duloxeti ne Propensi ty to adverse reaction s Active Unknown 2021- 0-18 00:00: 00 [facility] Levoflox acin Propensi ty to adverse reaction s Active Unknown 2021- 0-18 00:00: 00 [facility] Linaclot artie Propensi ty to adverse reaction s Active Unknown 2021- 0-18 00:00: 00 [facility] Pregabal in Propensi ty to adverse reaction s Active Unknown 2021- 0-18 00:00: 00 [facility] Quinidin e Propensi ty to adverse reaction s Active Unknown 2021- 0-18 00:00: 00 [facility] Rivaroxa ban Propensi ty to adverse reaction s Active Unknown 2021- 0-18 00:00: 00 [facility] Warfarin Propensi ty to adverse reaction s Active Unknown 2021- 0-18 00:00: 00 [facility] Xarelto Drug Allergy Active U Not Specified [...] to Assess UA Active 2020-06 18:41: 53 [facility] Unable to Assess UA Active 2020-06 17:35: 17 [facility] No Known Allergie s NA Active 2020-06 0 17:01: 06 [facility] No Known Allergie s NA Active 02-06 07:05: 07 [facility] No Known Allergie s NA Active 12-30 10:18: 46 [facility] No Known Allergie s NA Active 12-29 00:00: 51 [facility] No Known Allergie s NA Active 12-28 13:00: 09 [facility] No Known Allergie s NA Active 12-27 16:31: 37 [facility] No Known Allergie s NA Active 12-27 13:46: 29 [facility] No Known Allergie s NA Active 12-27 13:43: 38 [facility] warfarin DA Active MO 2-12 00:00: 00 [facility] levoflox acin DA Active MO 12 00:00: 00 [facility] duloxeti ne DA Active MO 12 00:00: 00 [facility] pregabal in DA Active MO 0 -12 00:00: 00 [facility] rivaroxa ban DA Active MO 2-12 00:00: 00 [facility] heparin DA Active MO 2-12 00:00: 00 [facility] warfarin DA Active MO 0 2-12 00:00: 00 [facility] levoflox acin DA Active MO 2-12 00:00: 00 [facility] duloxeti ne DA Active MO 0 212 00:00: 00 [facility] pregabal in DA Active MO 0 -12 00:00: 00 [facility] rivaroxa ban DA Active MO 0 12 00:00: 00 [facility] heparin DA Active MO 0 -12 00:00: 00 [facility] Heparin Allergy to substanc e Active 08-16 00:00: 00 [facility] Warfarin Allergy to substanc e Active 08-16 00:00: 00 [facility] Levoflox acin Allergy to substanc e Active 08-16 00:00: 00 [facility] CI Pigment Blue 63 Allergy to substanc e Active 08-16 00:00: 00 [facility] Duloxeti ne Allergy to substanc e Active 08-16 00:00: 00 [facility] Pregabal in Allergy to substanc e Active 08-16 00:00: 00 [facility] Rivaroxa ban Allergy to substanc e Active 08-16 00:00: 00 [facility] QUININE DRUG INGREDI Active Low Rash 11-13 00:00: 00 [facility] Quinine Propensi ty to adverse reaction s to drug Active Rash 11-13 00:00: 00 [facility] Quinine Propensi ty to adverse reaction s Active Rash 11-13 00:00: 00 [facility] Social History Social Habit Start Date Stop Date Quantity Comments Source Gender identity [facility] Sexual orientation U [facility] History of Social function 2024-05-15 00:00:00 2024-05-15 00:00:00 [facility] Alcoholic beverage intake 2024-05-15 00:00:00 2024-05-15 00:00:00 [facility] Tobacco use and exposure 2024-01-31 00:00:00 2024-01-31 00:00:00 Smokeless tobacco non-user [facility] Exposure to SARS-CoV-2 (event) 2022-05-01 00:00:00 2022-05-11 14:06:00 Not sure [facility] Alcohol intake 2022-04-20 00:00:00 2022-04-20 00:00:00 Lifetime non-drinker (finding) [facility] History of tobacco use 1976-05-01 00:00:00 Cigarette Smoker [facility] Sex Assigned At 1935 00:00:00 1935 00:00:00 [facility] Smoking Status Start Date Stop Date Source Ex-smoker 2024-01-31 00:00:00 2024-01-31 00:00:00 [facility] Medications Ordered Medication Name Filled Medication Name Start Date Stop Date Current Medication? Ordering Clinician Indication Dosage Frequency Signature (SIG) Comments Components Source ergocalcife rol, vitamin d2, 1,250 mcg (50,000 unit) capsule 2023-06 00:00: 00 Yes [id number] Take 1 capsule by mouth weekly. [facility] calcium carbonate 500 mg calcium (1,250 mg) tablet 2023-06 00:00: 00 Yes [id number] 500mg Take 1 tablet by mouth in the morning. [facility] azelastine 137 mcg (0.1 %) nasal spray 2023-06 00:00: 00 Yes [id number] 1{spray } Use 1 [place] in each nostril in the morning and 1 [place] in the evening. Use in each nostril as directed [facility] fluticasone propionate 50 mcg/actuati on nasal spray 2023-06 00:00: 00 Yes [id number] 1{spray } Use 1 [place] in each nostril in the morning. [facility] busPIRone 7.5 mg tablet 2023-06 00:00: 00 Yes [id number] 7.5mg Take 1 tablet by mouth in the morning and 1 tablet in the evening. [facility] amLODIPine 5 mg tablet 2023-06 00:00: 00 Yes [id number] TAKE 1 TABLET BY MOUTH EVERY MORNING [facility] apixaban (ELIQUIS) 2.5 mg tablet 2023-06 00:00: 00 Yes 2.5mg Take 1 tablet by mouth in the morning and 1 tablet in the evening. Indication s: Chronic Atrial Fibrillati on [facility] ezetimibe 10 mg tablet 2023-06 00:00: 00 Yes [id number] 5mg Take 0.5 tablets by mouth every morning. [facility] fexofenadin e 60 mg tablet 2023-06 00:00: 00 Yes [id number] 60mg Take 1 tablet by mouth in the morning and 1 tablet in the evening. [facility] furosemide 20 mg tablet 2023-06 00:00: 00 Yes [id number] 20mg Take 1 tablet by mouth every morning. [facility] losartan 100 mg tablet 2023-06 00:00: 00 Yes [id number] TAKE 1 TABLET BY MOUTH EVERY MORNING AND TAKE 1/2 TABLET BY MOUTH EVERY EVENING [facility] pantoprazol e 40 mg EC tablet 2023-06 00:00: 00 Yes [id number] 40mg Take 1 tablet by mouth in the morning. [facility] ipratropium 0.02 % nebulizer solution 2023-06 00:00: 00 Yes [id number] .5mg Inhale 2.5 mL every 4 (four) hours as needed for Wheezing or Shortness of Breath. [facility] albuterol 2.5 mg /3 mL (0.083 %) nebulizer solution 2023-06 00:00: 00 Yes [id number] 2.5mg Inhale 3 mL every 4 (four) hours as needed for Wheezing or Shortness of Breath. [facility] acetaminoph en (TYLENOL ARTHRITIS PAIN) 650 mg CR tablet 2023-06 00:00: 00 Yes [id number] 650mg Take 1 tablet by mouth every 8 (eight) hours as needed for Pain. [facility] albuterol 90 mcg/actuati on inhaler 2023-06 00:00: 00 Yes [id number] SHAKE WELL INHALE 1 PUFF(S) INTO LUNGS 3 TIMES DAILY NEEDED [facility] AMLODIPINE 5 mg tablet 2023-06 00:00: 00 05-15 00:00 :00 No [id number] TAKE 1 TABLET BY MOUTH EVERY MORNING [facility] losartan 100 mg tablet 2023-06 00:00: 00 05-15 00:00 :00 No [id number] TAKE 1 TABLET BY MOUTH EVERY MORNING AND TAKE 1/2 TABLET BY MOUTH EVERY EVENING [facility] FEXOFENADIN E 60 mg tablet 2023-06 00:00: 00 05-15 00:00 :00 No [id number] TAKE 1 TABLET BY MOUTH 2 TIMES A DAY - EVERY MORNING AND EVERY EVENING [facility] FUROSEMIDE 20 mg tablet 2023-06 00:00: 00 05-15 00:00 :00 No [id number] 20mg TAKE 1 TABLET BY MOUTH EVERY MORNING [facility] lidocaine 5 % ointment 2023-06 00:00: 00 Yes [id number] Apply 2g to affected areas BID PRN [facility] pantoprazol e 40 mg EC tablet 2023-06 00:00: 00 05-15 00:00 :00 No [id number] 40mg Take 1 tablet by mouth in the morning. [facility] FAMOTIDINE 20 mg tablet 2023-06 00:00: 00 03-31 00:00 :00 No [id number] TAKE 1 TABLET BY MOUTH 2 TIMES A DAY - EVERY MORNING AND EVERY EVENING [facility] ELIQUIS 2.5 mg tablet 03-03 00:00: 00 05-15 00:00 :00 No [id number] TAKE 1 TABLET BY MOUTH 2 TIMES A DAY EVERY MORNING AND EVERY EVENING FOR ATRIAL FIBRILLATI ON [facility] BUSPIRONE 7.5 mg tablet 03-03 00:00: 00 05-15 00:00 :00 No [id number] TAKE 1 TABLET BY MOUTH 2 TIMES A DAY - EVERY MORNING AND EVENING [facility] FEXOFENADIN E 60 mg tablet 03-03 00:00: 00 04-14 00:00 :00 No [id number] TAKE 1 TABLET BY MOUTH 2 TIMES A DAY - EVERY MORNING AND EVERY EVENING [facility] rivastigmin e tartrate 4.5 mg capsule 02-13 00:00: 00 Yes [id number] 4.5mg Take 1 capsule by mouth every morning and evening. [facility] amLODIPine 5 mg tablet 02-06 00:00: 00 Yes [id number] TAKE 1 TABLET BY MOUTH EVERY MORNING [facility] divalproex 500 mg delayed release tablet 01-30 00:00: 00 03-31 00:00 :00 No [id number] 500mg Take 1 tablet by mouth every 12 (twelve) hours. [facility] rivastigmin e tartrate 6 mg capsule 01-30 00:00: 00 02-13 00:00 :00 No [id number] TAKE 1 CAPSULE BY MOUTH TWICE DAILY [facility] FAMOTIDINE 20 mg tablet 12-25 00:00: 00 Yes [id number] TAKE 1 TABLET BY MOUTH 2 TIMES A DAY - EVERY MORNING AND EVERY EVENING [facility] FEXOFENADIN E 60 mg tablet 12-25 00:00: 00 03-03 00:00 :00 No [id number] TAKE 1 TABLET BY MOUTH 2 TIMES A DAY EVERY MORNING AND EVERY EVENING [facility] rivastigmin e tartrate 4.5 mg capsule 11-21 00:00: 00 01-30 00:00 :00 No [id number] TAKE 1 CAPSULE BY MOUTH TWICE DAILY [facility] divalproex 500 mg delayed release tablet 11-21 00:00: 00 01-30 00:00 :00 No [id number] 500mg Take 1 tablet by mouth every 12 (twelve) hours. [facility] ezetimibe 10 mg tablet 11-12 00:00: 00 05-15 00:00 :00 No [id number] 5mg Take 0.5 tablets by mouth every morning. [facility] apixaban (ELIQUIS) 2.5 mg tablet 11-12 00:00: 00 03-03 00:00 :00 No [id number] 2.5mg Take 1 tablet by mouth in the morning and 1 tablet in the evening. Indication s: atrial fibrillati on [facility] amLODIPine 5 mg tablet 11-12 00:00: 00 02-06 00:00 :00 No [id number] TAKE 1 TABLET BY MOUTH MORNING [facility] AMITRIPTYLI NE 10 mg tablet 10-31 00:00: 00 11-12 00:00 :00 No [id number] 10mg TAKE 1 TABLET BY MOUTH AT BEDTIME [facility] EZETIMIBE 10 mg tablet 10-28 00:00: 00 11-12 00:00 :00 No [id number] 10mg TAKE 1 TABLET BY MOUTH EVERY MORNING [facility] ONDANSETRON 4 mg tablet 16 00:00: 00 Yes [id number] TAKE 1 TABLET BY MOUTH EVERY 8 HOURS NEEDED FOR RADIATION GASTRITIS [facility] FAMOTIDINE 20 mg tablet 10-17 00:00: 00 12-25 00:00 :00 No [id number] TAKE 1 TABLET BY MOUTH 2 TIMES A DAY - IN THE MORNING & IN THE EVENING [facility] FEXOFENADIN E 60 mg tablet 10-17 00:00: 00 12-25 00:00 :00 No [id number] TAKE 1 TABLET BY MOUTH 2 TIMES A DAY EVERY MORNING AND EVERY EVENING [facility] HYDROcodone -acetaminop hen 7.5-325 mg per tablet 10-13 00:00: 00 Yes 1{tbl} Take 1 tablet by mouth every 8 (eight) hours as needed. [facility] fexofenadin e 60 mg tablet 09-30 00:00: 00 10-17 00:00 :00 No [id number] TAKE 1 TABLET BY MOUTH EVERY MORNING AND 1 TABLET EVERY EVENING [facility] carvediloL 25 mg tablet 17 00:00: 00 Yes 25mg Take 1 tablet by mouth in the morning and 1 tablet in the evening. Take with meals. [facility] amLODIPine 5 mg tablet 08-28 00:00: 00 11-12 00:00 :00 No [id number] TAKE 1 TABLET BY MOUTH MORNING [facility] FEXOFENADIN E 60 mg tablet 08-28 00:00: 00 09-30 00:00 :00 No [id number] TAKE 1 TABLET BY MOUTH 2 TIMES A DAY - IN THE MORNING & IN THE EVENING *NEEDS APPT* [facility] RIVASTIGMIN E TARTRATE 4.5 mg capsule 3-06 00:00: 00 11-20 00:00 :00 No [id number] TAKE 1 CAPSULE BY MOUTH 2 TIMES DAILY IN THE MORNING & IN THE EVENING [facility] FEXOFENADIN E 60 mg tablet 3-06 00:00: 00 08-28 00:00 :00 No [id number] TAKE 1 TABLET BY MOUTH 2 TIMES DAILY IN THE MORNING & IN THE EVENING *NEEDS APPT* [facility] ondansetron 4 mg tablet 07-31 08:37: 01 07-31 00:00 :00 No 4mg Take 4 mg by mouth every 8 (eight) hours as needed. [facility] ondansetron 4 mg tablet 07-31 00:00: 00 10-23 00:00 :00 No [id number] 4mg Take 1 tablet by mouth every 8 (eight) hours as needed (Radiation gastritis) . [facility] FEXOFENADIN E 60 mg tablet 07-24 00:00: 00 08-13 00:00 :00 No [id number] TAKE 1 TABLET BY MOUTH 2 TIMES DAILY IN THE MORNING & IN THE EVENING *NEEDS APPT* [facility] FEXOFENADIN E 60 mg tablet - 00:00: 00 07-24 00:00 :00 No [id number] TAKE 1 TABLET BY MOUTH 2 TIMES DAILY IN THE MORNING & IN THE EVENING *NEEDS APPT* [facility] FAMOTIDINE 20 mg tablet -16 00:00: 00 10-17 00:00 :00 No [id number] TAKE 1 TABLET BY MOUTH 2 TIMES DAILY IN THE MORNING & IN THE EVENING [facility] FEXOFENADIN E 60 mg tablet 2022-06 00:00: 00 Yes [id number] TAKE 1 TABLET BY MOUTH 2 TIMES DAILY IN THE MORNING & IN THE EVENING *NEEDS APPT* [facility] divalproex 500 mg EC tablet 2022-06 00:00: 00 11-20 00:00 :00 No [id number] 500mg Take 1 tablet by mouth every 12 (twelve) hours. [facility] rivastigmin e tartrate 4.5 mg capsule 2022-06 00:00: 00 08-13 00:00 :00 No [id number] 4.5mg Take 1 capsule by mouth every morning and evening. [facility] FEXOFENADIN E 60 mg tablet 2022-06 00:00: 00 05-30 00:00 :00 No [id number] TAKE 1 TABLET BY MOUTH 2 TIMES DAILY IN THE MORNING & IN THE EVENING *NEEDS APPT* [facility] ezetimibe 10 mg tablet 2022-06 00:00: 00 Yes [id number] 10mg Take 1 tablet by mouth in the morning. [facility] fluticasone propionate (FLOVENT HFA) 110 mcg/actuati on inhaler 2022-06 00:00: 00 Yes [id number] 2{puff} Inhale 2 Puffs every 12 (twelve) hours. [facility] albuterol 2.5 mg/0.5 mL nebulizer solution 2022-06 00:00: 00 05-15 00:00 :00 No [id number] 2.5mg Inhale 0.5 mL every 6 (six) hours as needed for Wheezing. [facility] albuterol 2.5 mg /3 mL (0.083 %) nebulizer solution 2022-06 00:00: 00 05-15 00:00 :00 No [id number] 2.5mg Inhale 3 mL every 6 (six) hours as needed for Wheezing or Shortness of Breath. [facility] albuterol 90 mcg/actuati on inhaler 2022-06 00:00: 00 05-10 00:00 :00 No [id number] SHAKE WELL INHALE 1 PUFF(S) INTO LUNGS 3 TIMES DAILY NEEDED *NEED LABS-MAKE AN APPT* [facility] losartan 100 mg tablet 2022-06 00:00: 04-30 00:00 :00 No [id number] Take 100mg qAM and 50mg qPM [facility] furosemide 20 mg tablet 2022-06 00:00: 00 03-31 00:00 :00 No [id number] 20mg Take 1 tablet by mouth in the morning. [facility] ipratropium 0.02 % nebulizer solution 2022-06 00:00: 03-31 00:00 :00 No [id number] .5mg Inhale 2.5 mL every 6 (six) hours as needed for Wheezing or Shortness of Breath. [facility] busPIRone 7.5 mg tablet 2022-06 00:00: 00 03-03 00:00 :00 No [id number] 3.75mg Take 0.5 tablets by mouth in the morning and 0.5 tablets in the evening. [facility] hydrALAZINE 50 mg tablet 2022-06 00:00: 00 11-12 00:00 :00 No [id number] 50mg Take 1 tablet by mouth 3 (three) times daily as needed (Take 1 Tab TID PRN if BP > 160/90). [facility] apixaban (ELIQUIS) 2.5 mg tablet 2022-06 00:00: 00 11-12 00:00 :00 No [id number] 2.5mg Take 1 tablet by mouth in the morning and 1 tablet in the evening. Indication s: atrial fibrillati on [facility] amitriptyli ne 10 mg tablet 2022-06 00:00: 00 10-31 00:00 :00 No [id number] 10mg Take 1 tablet by mouth at bedtime. [facility] amLODIPine 5 mg tablet 2022-06 00:00: 00 08-28 00:00 :00 No [id number] TAKE 1 TABLET BY MOUTH IN THE MORNING *NEEDS APPT* [facility] metoprolol succinate XL 100 mg 24 hr tablet 2022-06 00:00: 00 05-09 00:00 :00 No [id number] TAKE 1 TABLET BY MOUTH IN THE MORNING WITH FOOD [facility] busPIRone 7.5 mg tablet 2022-06 00:00: 00 05-09 00:00 :00 No [id number] 7.5mg Take 1 tablet by mouth in the morning and 1 tablet in the evening. [facility] ALBUTEROL 90 mcg/actuati on inhaler 2022-06 00:00: 00 05-09 00:00 :00 No [id number] SHAKE WELL INHALE 1 PUFF(S) INTO LUNGS 3 TIMES DAILY NEEDED *NEED LABS-MAKE AN APPT* [facility] AMLODIPINE 5 mg tablet 2022-06 00:00: 00 05-09 00:00 :00 No [id number] TAKE 1 TABLET BY MOUTH IN THE MORNING *NEEDS APPT* [facility] carvediloL 12.5 mg tablet 2022-06 00:00: 00 11-12 00:00 :00 No [id number] 12.5mg Take 1 tablet by mouth in the morning and 1 tablet in the evening. Take with meals. [facility] FAMOTIDINE 20 mg tablet 2022-06 00:00: 00 06-25 00:00 :00 No [id number] TAKE 1 TABLET BY MOUTH 2 TIMES DAILY IN THE MORNING & IN THE EVENING [facility] FEXOFENADIN E 60 mg tablet 2022-06 00:00: 00 05-10 00:00 :00 No [id number] TAKE 1 TABLET BY MOUTH 2 TIMES DAILY IN THE MORNING & IN THE EVENING *NEEDS APPT* [facility] FEXOFENADIN E 60 mg tablet 2022-06 00:00: 00 Yes [id number] TAKE 1 TABLET BY MOUTH 2 TIMES DAILY IN THE MORNING & IN THE EVENING [facility] AMLODIPINE 5 mg tablet 2022-06 00:00: 00 04-22 00:00 :00 No [id number] 5mg TAKE 1 TABLET BY MOUTH IN THE MORNING [facility] divalproex 500 mg EC tablet 2022-0616 00:00: 00 05-16 00:00 :00 No [id number] 500mg TAKE 1 TABLET BY MOUTH EVERY 12 HOURS [facility] iopamidol (ISOVUE 370-500 mL) injection 72 mL 2022-06 0 17:30: 00 03-19 16:39 :00 No [id number] 72mL 72 mL, Intravenou s, ONCE, 1 dose, On Sat03/19/23 at 1230, Routine [facility] rivastigmin e tartrate 3 mg capsule 01-25 00:00: 00 05-16 00:00 :00 No [id number] 3mg Take 1 capsule by mouth every morning and evening. [facility] divalproex (DEPAKOTE) 500 mg EC tablet 01-25 00:00: 00 03-25 00:00 :00 No [id number] 500mg Take 1 tablet by mouth every 12 (twelve) hours. [facility] predniSONE 20 mg tablet 01-16 00:00: 00 01-22 04:59 :00 No [id number] 20mg Take 1 tablet by mouth every morning for 5 days. [facility] methylPREDN ISolone sod succ (SOLU-MEDRO L (PF)) injection 40 mg 01-15 22:30: 00 01-15 21:51 :00 No [id number] 40mg [facility] fexofenadin e (ABEL ALLERGY) 60 mg tablet 01-15 00:00: 00 03-28 00:00 :00 No [id number] 60mg Take 1 tablet by mouth in the morning and 1 tablet in the evening. [facility] fluticasone propionate 50 mcg/actuati on nasal spray 01-03 00:00: 00 05-15 00:00 :00 No [id number] 1{spray } Use 1 [place] in each nostril in the morning. [facility] amLODIPine 5 mg tablet 01-03 00:00: 00 03-28 00:00 :00 No [id number] 5mg Take 1 tablet by mouth in the morning. [facility] fexofenadin e (ABEL ALLERGY) 60 mg tablet 01-03 00:00: 00 01-15 00:00 :00 No [id number] 60mg Take 1 tablet by mouth in the morning. [facility] doxycycline hyclate 100 mg tablet 01-03 00:00: 00 01-11 04:59 :00 No [id number] 100mg Take 1 tablet by mouth in the morning and 1 tablet in the evening. Do all this for 7 days. [facility] fexofenadin e-pseudoeph edrine (ABEL-D) 60-120 mg per tablet 01-03 00:00: 00 01-03 00:00 :00 No [id number] 1{tbl} Take 1 tablet by mouth in the morning and 1 tablet in the evening. [facility] rivastigmin e tartrate 1.5 mg capsule 12-24 00:00: 00 01-25 00:00 :00 No [id number] 1.5mg Take 1 capsule by mouth every morning and evening. [facility] cloNIDine (CATAPRES) tablet 0.2 mg 11-22 22:00: 00 11-22 22:02 :00 No [id number] .[facility] hydrAL[facility]INE [facility] mg tablet 11-22 00:00: 00 05-09 00:00 :00 No [id number] 50mg Take 1 tablet by mouth 3 (three) times daily as needed (Take 1 Tab TID PRN if BP > 160/90). [facility] busPIRone 7.5 mg tablet 11-22 00:00: 00 05-09 00:00 :00 No [id number] 7.5mg Take 1 tablet by mouth in the morning and 1 tablet in the evening. [facility] metoprolol succinate XL 100 mg 24 hr tablet 11-07 00:00: 00 05-09 00:00 :00 No [id number] TAKE 1 TABLET BY MOUTH IN THE MORNING WITH FOOD [facility] furosemide 20 mg tablet 11-07 00:00: 00 05-09 00:00 :00 No [id number] 20mg Take 1 tablet by mouth in the morning. [facility] losartan 100 mg tablet 11-07 00:00: 00 05-09 00:00 :00 No [id number] Take 100mg qAM and 50mg qPM [facility] amitriptyli ne 10 mg tablet 11-07 00:00: 00 05-09 00:00 :00 No [id number] 10mg Take 1 tablet by mouth at bedtime. [facility] apixaban (ELIQUIS) 2.5 mg tablet 11-07 00:00: 00 05-09 00:00 :00 No [id number] 2.5mg Take 1 tablet by mouth in the morning and 1 tablet in the evening. Indication s: atrial fibrillati on [facility] hydroCHLORO thiazide 50 mg tablet 11-07 00:00: 00 01-03 00:00 :00 No [id number] TAKE 1 TABLET BY MOUTH ONCE DAILY [facility] busPIRone 5 mg tablet 11-07 00:00: 00 11-22 00:00 :00 No [id number] 5mg Take 1 tablet by mouth in the morning and 1 tablet in the evening. [facility] hydroCHLORO thiazide 50 mg tablet 11-01 00:00: 00 11-07 00:00 :00 No [id number] TAKE 1 TABLET BY MOUTH ONCE DAILY [facility] METOPROLOL SUCCINATE XL 100 mg 24 hr tablet 10-26 00:00: 00 11-07 00:00 :00 No [id number] TAKE 1 TABLET BY MOUTH IN THE MORNING WITH FOOD [facility] LOSARTAN 100 mg tablet 10-26 00:00: 00 11-07 00:00 :00 No [id number] 100mg TAKE 1 TABLET BY MOUTH IN THE MORNING [facility] AMITRIPTYLI NE 10 mg tablet 08-06 00:00: 00 11-07 00:00 :00 No [id number] TAKE 1/2 TABLET BY MOUTH AT BEDTIME [facility] levocetiriz ine 5 mg tablet 06-18 00:00: 00 01-03 00:00 :00 No [id number] 5mg TAKE 1 TABLET BY MOUTH AT BEDTIME NEEDED FOR ALLERGIES [facility] ondansetron 4 mg tablet 2021-06 11:14: 03 Yes 4mg Take 4 mg by mouth every 8 (eight) hours as needed. [facility] Diclofenac Sodium (VOLTAREN) 1 % gel 2021-06 00:00: 00 Yes [id number] Apply 4g to affected area QID [facility] lidocaine 5 % ointment 2021-06 00:00: 00 03-31 00:00 :00 No [id number] Apply 2g to affected areas BID PRN [facility] busPIRone 5 mg tablet 2021-06 00:00: 00 11-07 00:00 :00 No [id number] 5mg Take 1 tablet by mouth 2 (two) times daily as needed (Anxiety/D epression) . [facility] amitriptyli ne 10 mg tablet 2021-06 00:00: 00 08-06 00:00 :00 No [id number] 5mg Take 0.5 tablets by mouth at bedtime. [facility] levocetiriz ine 5 mg tablet 2021-06 00:00: 00 06-18 00:00 :00 No [id number] 5mg Take 1 tablet by mouth at bedtime as needed for Allergies. [facility] HYDROcodone -acetaminop hen 10-325 mg tablet 2021-06 00:00: 00 11-12 00:00 :00 No [facility] ondansetron (Zofran) 4 MG tablet 2021-06 11:24: 25 Yes 4mg Take 4 mg by mouth. [facility] metoprolol succinate XL (Toprol-XL) 100 MG 24 hr tablet 2021-06 00:00: 00 Yes 1{tbl} Take 1 tablet by mouth 1 (one) time each day in the morning. [facility] metoprolol succinate XL (TOPROL XL) 100 mg 24 hr tablet 2021-06 00:00: 00 10-26 00:00 :00 No [id number] 100mg Take 1 tablet by mouth in the morning. [facility] furosemide 20 mg tablet 2021-06 12:08: 16 03-27 00:00 :00 No 20mg Take 20 mg by mouth in the morning. [facility] TOPROL XL 50 MG ORAL TB24 2021-06 12:08: 09 03-27 00:00 :00 No 1 1/2 tab daily [facility] NIACIN 500 MG ORAL TAB 2021-06 11:41: 41 03-27 00:00 :00 No 2 tabs daily [facility] ondansetron 4 mg tablet 2021-06 11:03: 44 Yes 4mg Take 4 mg by mouth every 8 (eight) hours as needed. [facility] furosemide (Lasix) 20 MG tablet 2021-06 00:00: 00 Yes 1{tbl} Take 1 tablet by mouth 1 (one) time each day in the morning. [facility] losartan (Cozaar) 100 MG tablet 2021-06 00:00: 00 Yes 1{tbl} Take 1 tablet by mouth 1 (one) time each day in the morning. [facility] lidocaine 1.8 % PtMd 2021-06 00:00: 00 03-31 00:00 :00 No [id number] 1{patch } Apply 1 Patch to area(s) daily. [facility] albuterol 2.5 mg /3 mL (0.083 %) nebulizer solution 2021-06 00:00: 00 05-09 00:00 :00 No [id number] 2.5mg Inhale 3 mL every 6 (six) hours as needed for Wheezing or Shortness of Breath. [facility] ipratropium 0.02 % nebulizer solution 2021-06 00:00: 00 05-09 00:00 :00 No [id number] .5mg Inhale 2.5 mL every 6 (six) hours as needed for Wheezing or Shortness of Breath. [facility] fluticasone propionate (FLOVENT HFA) 110 mcg/actuati on inhaler 2021-06 00:00: 00 05-09 00:00 :00 No [id number] 2{puff} Inhale 2 Puffs every 12 (twelve) hours. [facility] albuterol 2.5 mg/0.5 mL nebulizer solution 2021-06 00:00: 00 05-09 00:00 :00 No [id number] 2.5mg Inhale 0.5 mL every 6 (six) hours as needed for Wheezing. [facility] famotidine 20 mg tablet 2021-06 00:00: 00 04-08 00:00 :00 No [id number] 20mg Take 1 tablet by mouth in the morning and 1 tablet in the evening. [facility] furosemide 20 mg tablet 2021-06 00:00: 00 11-07 00:00 :00 No [id number] 20mg Take 1 tablet by mouth in the morning. [facility] apixaban (ELIQUIS) 2.5 mg tablet 2021-06 00:00: 00 11-07 00:00 :00 No [id number] 2.5mg Take 1 tablet by mouth in the morning and 1 tablet in the evening. Indication s: atrial fibrillati on [facility] hydroCHLORO thiazide 50 mg tablet 2021-06 00:00: 00 11-01 00:00 :00 No [id number] take one pill PO Daily [facility] losartan 100 mg tablet 2021-06 00:00: 00 10-26 00:00 :00 No [id number] 100mg Take 1 tablet by mouth in the morning. [facility] famotidine (Pepcid) 20 MG tablet 2021-06 018 00:00: 00 06-12 00:00 :00 No 1{tbl} Q.5D Take 1 tablet by mouth 2 (two) times a day, in the morning and at bedtime. [facility] traMADol-ac etaminophen (UltraCET) 37.5-325 MG tablet 2021-06 0-18 00:00: 00 06-12 00:00 :00 No 1{tbl} Take 1 tablet by mouth. [facility] amitriptyli ne 10 mg tablet 2021-06 00:00: 00 05-09 00:00 :00 No [id number] 5mg Take 0.5 tablets by mouth at bedtime. [facility] metoprolol succinate XL (TOPROL XL) 100 mg 24 hr tablet 2021-06 00:00: 00 04-11 00:00 :00 No [id number] 100mg Take 1 tablet by mouth in the morning. [facility] ELIQUIS 2.5 mg tablet 2021-06 0- 00:00: 00 03-27 00:00 :00 No [facility] losartan 100 mg tablet 2021-06 0-03 00:00: 00 03-27 00:00 :00 No [facility] busPIRone (Buspar) 5 MG tablet 8-26 00:00: 00 06-12 00:00 :00 No [facility] levocetiriz ine 5 mg tablet 8-25 00:00: 00 05-09 00:00 :00 No [facility] fluticasone (Flonase) 50 MCG/ACT nasal spray 5-19 00:00: 00 Yes [facility] Apixaban Base (ELIQUIS 2.5 MG TAB) 2.5 MG TAB Apixaban Base (ELIQUIS 2.5 MG TAB) 2.5 MG TAB 2017- 3-14 15:31: 00 Yes 2.5 TWICE A DAY (899; 2099) [facility]un aguillon [facility] l METOPROLOL TARTRATE (METOPROLOL 50 MG TAB) 50 MG TAB METOPROLOL TARTRATE (METOPROLOL 50 MG TAB) 50 MG TAB 14 15:31: 00 Yes 150 TWICE A DAY (0900; 2100) Varun aguillon [facility] NIASPAN 1,000 MG ORAL TBSR 2006-06 00:00: 00 03-27 00:00 :00 No take 1 and 1/2 pills daily [facility] METOPROLOL SUCCINATE 50 MG ORAL TB24 06-14 00:00: 00 03-27 00:00 :00 No [id number] 11/2 tab by mouth every day [facility] HYDROCHLORO THIAZIDE 25 MG ORAL TAB 06-14 00:00: 00 03-27 00:00 :00 No [id number] take one pill PO Daily [facility] PRAVASTATIN 20 MG ORAL TAB 06-14 00:00: 00 03-27 00:00 :00 No [id number] 1 Tab Oral DAILY [facility] HYDROCODONE -ACETAMINOP HEN 5-325 MG ORAL TAB 06-14 00:00: 00 03-27 00:00 :00 No [id number] 1-2 Tab Oral Q4HPRN [facility] TEMAZEPAM 15 MG ORAL CAP 06-14 00:00: 00 03-27 00:00 :00 No [id number] 1 Cap Oral QHSPRN [facility] CARISOPRODO L 350 MG ORAL TAB 06-14 00:00: 00 03-27 00:00 :00 No [id number] 1 Tab Oral BID [facility] BACTRIM DS 160-800 MG ORAL TAB 2005-06 00:00: 00 03-27 00:00 :00 No [id number] 1 by mouth two times a day [facility] BACTRIM DS 160-800 MG ORAL TAB 2005-06 00:00: 00 03-27 00:00 :00 No [id number] 1 tab PO q 12hrs [facility] METOPROLOL TARTRATE 50 MG ORAL TAB 2005-06 030 00:00: 00 03-27 00:00 :00 No take 1 pill PO Q12h [facility] FAMOTIDINE 20 MG ORAL TAB 2005-06 0-30 00:00: 00 03-27 00:00 :00 No 1 Tab Oral [id number] [facility] ASPIRIN, BUFFERED 325 MG ORAL TAB 2005-06 0 00:00: 00 03-27 00:00 :00 No 1 Tab Oral DAILY [facility] B Complex W/ C (B-Complex Plus Vitamin C) TAB B Complex W/ C (B-Complex Plus Vitamin C) TAB Yes 1 EVERY DAY @ 0900 Varun aguillon [facility] CHOLECALCIF JACKSON (VITAMIN D-3 2000 UNIT TAB) 2,000 UNIT TAB CHOLECALCIF JACKSON (VITAMIN D-3 2000 UNIT TAB) 2,000 UNIT TAB Yes 2000 EVERY DAY @ 0900 Varun aguillon [facility] Doxazosin Mesylate (DOXAZOSIN 2 MG TAB) 2 MG TAB Doxazosin Mesylate (DOXAZOSIN 2 MG TAB) 2 MG TAB Yes 2 AT BEDTIME (2100) [facility]un aguillon [facility] FUROSEMIDE (FUROSEMIDE 20 MG TAB) 20 MG TAB FUROSEMIDE (FUROSEMIDE 20 MG TAB) 20 MG TAB Yes 10 EVERY DAY @ 0900 Varun aguillon [facility] OMEGA-3 FATTY ACIDS (OMEGA 3 (MULTIPLE STRENGTHS) CAP) 340 MG CAP OMEGA-3 FATTY ACIDS (OMEGA 3 (MULTIPLE STRENGTHS) CAP) 340 MG CAP Yes 340 EVERY DAY @ 0900 Varun aguillon [facility] Omeprazole (PRILOSEC 20 MG CAP) 20 MG CAP Omeprazole (PRILOSEC 20 MG CAP) 20 MG CAP Yes 20 EVERY DAY @ 0900 Varun aguillon [facility] Potassium Chloride (Klor-Con M10) 10 MEQ TAB Potassium Chloride (Klor-Con M10) 10 MEQ TAB Yes 10 EVERY DAY @ 0900 Varun aguillon [facility] Vitamin E (Vit E Complx) 400 UNIT CAP Vitamin E (Vit E Complx) 400 UNIT CAP Yes 400 EVERY DAY @ 0900 Varun aguillon [facility] Immunizations Ordered Immunization Name Filled Immunization Name Date Status Comments Source Pneumococcal 20 Conjugate, PCV20 (Prevnar 20) 2024-05-15 00:00:00 Completed [facility] Influenza, adjuvanted, trivalent, PF (FLUAD) 2024-05-15 00:00:00 Completed Influenza Virus Vaccine 2006-03-22 00:00:00 Completed [facility] Influenza Virus Vaccine 2006-03-22 00:00:00 Completed [facility] Influenza Virus Vaccine 2006-03-22 00:00:00 Completed [facility] Influenza Virus Vaccine 2006-03-22 00:00:00 Completed [facility] Influenza Virus Vaccine 2006-03-22 00:00:00 Completed [facility] Influenza Virus Vaccine 2006-03-22 00:00:00 Completed [facility] Influenza Virus Vaccine 2006-03-22 00:00:00 Completed [facility] Influenza Virus Vaccine 2006-03-22 00:00:00 Completed [facility] Influenza Virus Vaccine 2006-03-22 00:00:00 Completed [facility] Influenza Virus Vaccine 2006-03-22 00:00:00 Completed [facility] Influenza Virus Vaccine 2006-03-22 00:00:00 Completed [facility] Influenza Virus Vaccine 2006-03-22 00:00:00 Completed [facility] Influenza Virus Vaccine 2006-03-22 00:00:00 Completed [facility] Influenza Virus Vaccine 2006-03-22 00:00:00 Completed [facility] Influenza Virus Vaccine 2006-03-22 00:00:00 Completed [facility] Influenza Virus Vaccine 2006-03-22 00:00:00 Completed [facility] Influenza Virus Vaccine 2006-03-22 00:00:00 Completed [facility] Influenza Virus Vaccine 2006-03-22 00:00:00 Completed [facility] Influenza Virus Vaccine 2006-03-22 00:00:00 Completed Influenza Virus Vaccine 2006-03-22 00:00:00 Completed [facility] Influenza Virus Vaccine 2006-03-22 00:00:00 Completed [facility] Influenza Virus Vaccine 2006-03-22 00:00:00 Completed [facility] Influenza Virus Vaccine 2006-03-22 00:00:00 Completed [facility] Influenza Virus Vaccine 2006-03-22 00:00:00 Completed [facility] Influenza Virus Vaccine 2006-03-22 00:00:00 Completed [facility] Influenza Virus Vaccine 2006-03-22 00:00:00 Completed [facility] Influenza Virus Vaccine 2006-03-22 00:00:00 Completed [facility] Influenza Virus Vaccine 2006-03-22 00:00:00 Completed [facility] Influenza Virus Vaccine 2006-03-22 00:00:00 Completed [facility] Influenza Virus Vaccine 2006-03-22 00:00:00 Completed [facility] Influenza Virus Vaccine 2006-03-22 00:00:00 Completed [facility] Influenza Virus Vaccine 2006-03-22 00:00:00 Completed [facility] Influenza Virus Vaccine 2006-03-22 00:00:00 Completed [facility] Influenza Virus Vaccine 2006-03-22 00:00:00 Completed [facility] Influenza Virus Vaccine 2006-03-22 00:00:00 Completed [facility] Influenza Virus Vaccine 2006-03-22 00:00:00 Completed [facility] Influenza Virus Vaccine 2006-03-22 00:00:00 Completed [facility] Influenza Virus Vaccine Unknown Completed [facility] Influenza Virus Vaccine Unknown Completed [facility] Influenza Virus Vaccine Unknown Completed [facility] Influenza Virus Vaccine Unknown Completed [facility] Influenza Virus Vaccine Unknown Completed [facility] Influenza Virus Vaccine Unknown Completed [facility] Influenza Virus Vaccine Unknown Completed [facility] Influenza Virus Vaccine Unknown Completed [facility] Influenza Virus Vacc[facility] Unknown Completed [facility] Influenza Virus Vaccine Unknown Completed [facility] Influenza Virus Vacc[facility] Unknown Completed [facility] Influenza Virus Vacc[facility] Unknown Completed [facility] Influenza Virus Vaccine Unknown Completed [facility] Influenza Virus Vacc[facility] Unknown Completed [facility] Influenza Virus Vaccine Unknown Completed [facility] Influenza Virus Vaccine Unknown Completed [facility] Influenza Virus Vacc[facility] Unknown Completed [facility] Influenza Virus Vaccine Unknown Completed [facility] Influenza Virus Vacc[facility] Unknown Completed [facility] Influenza Virus Vacc[facility] Unknown Completed [facility] Influenza Virus Vaccine Unknown Completed [facility] Influenza Virus Vaccine Unknown Completed [facility] Influenza Virus Vacc[facility] Unknown Completed [facility] Influenza Virus Vacc[facility] Unknown Completed [facility] Influenza Virus Vaccine Unknown Completed [facility] Influenza Virus Vacc[facility] Unknown Completed [facility] Influenza Virus Vacc[facility] Unknown Completed [facility] Influenza Virus Vaccine Unknown Completed [facility] Influenza Virus Vacc[facility] Unknown Completed [facility] Influenza Virus Vacc[facility] Unknown Completed [facility] Influenza Virus Vacc[facility] Unknown Completed [facility] Influenza Virus Vaccine Unknown Completed [facility] Influenza Virus Vacc[facility] Unknown Completed [facility] Influenza Virus Vacc[facility] Unknown Completed [facility] Influenza Virus Vacc[facility] Unknown Completed [facility] Influenza Virus Vacc[facility] Unknown Completed [facility] Influenza Virus Vaccine Unknown Completed [facility] Influenza Virus Vaccine Unknown Completed [facility] Influenza Virus Vaccine Unknown Completed [facility] Influenza Virus Vacc[facility] Unknown Completed [facility] Influenza Virus Vacc[facility] Unknown Completed [facility] Influenza Virus Vacc[facility] Unknown Completed [facility] Influenza Virus Vacc[facility] Unknown Completed [facility] Influenza Virus Vacc[facility] Unknown Completed [facility] Influenza Virus Vaccine Unknown Completed [facility] Influenza Virus Vaccine Unknown Completed [facility] Influenza Virus Vaccine Unknown Completed [facility] Influenza Virus Vaccine Unknown Completed [facility] Influenza Virus Vaccine Unknown Completed [facility] Influ[facility] Virus Vaccine Unknown Completed [facility] Influenza Virus Vaccine Unknown Completed [facility] Influenza Virus Vaccine Unknown Completed [facility] Influenza Virus Vaccine Unknown Completed [facility] Influenza Virus Vaccine Unknown Completed [facility] Influenza Virus Vaccine Unknown Completed [facility] Influenza Virus Vaccine Unknown Completed [facility] Influenza Virus Vaccine Unknown Completed [facility] Vital Signs Vital Name Observation Time Observation Value Comments S ource Systolic blood pressure 2024-05-15 19:07:00 111 mm[Hg] [place] [facility] Diastolic blood pressure 2024-05-15 19:07:00 69 mm[Hg] [place] [facility] Heart rate 2024-05-15 19:07:00 70 /min [facility] 2024-05-15 19:07:00 36.56 Dotty [facility] Body weight 2024-05-15 19:07:00 40.597 kg Univ [facility] BMI 2024-05-15 19:07:00 18.08 kg/m2 [facility] Oxygen saturation in Arterial blood by Pulse oximetry 2024-05-15 19:07:00 98 /min [facility] Systolic blood pressure 2024-05-15 19:10:00 111 mm[Hg] [facility] Diastolic blood pressure 2024-05-15 19:10:00 69 mm[Hg] [facility] Heart rate 2024-05-15 19:10:00 70 /min Unive [facility] Body temperature 2024-05-15 19:10:00 36.56 Dotty [facility] Body weight 2024-05-15 19:10:00 40.597 kg [facility] BMI 2024-05-15 19:10:00 18.08 kg/m2 [facility] Oxygen saturation in Arterial blood by Pulse oximetry 2024-05-15 19:10:00 98 /min [facility] Systolic blood pressure 2024-03-31 19:31:00 127 mm[Hg] [facility] Diastolic blood pressure 2024-03-31 19:31:00 69 mm[Hg] [facility] Heart rate 2024-03-31 19:31:00 69 /min Unive [facility] Body temperature 2024-03-31 19:31:00 36.44 Dotty [facility] Body height 2024-03-31 19:31:00 149.9 cm [facility] Body weight 2024-03-31 19:31:00 41.413 kg [facility] BMI 2024-03-31 19:31:00 18.44 kg/m2 [facility] Oxygen saturation in Arterial blood by Pulse oximetry 2024-03-31 19:31:00 97 /min [facility] Systolic blood pressure 2024-01-31 16:34:00 112 mm[Hg] [facility] Diastolic blood pressure 2024-01-31 16:34:00 63 mm[Hg] [facility] Heart rate 2024-01-31 16:34:00 69 /min Unive [facility] Body height 2024-01-31 16:34:00 149.9 cm [facility] Body weight 2024-01-31 16:34:00 38.556 kg [facility] BMI 2024-01-31 16:34:00 17.17 kg/m2 [facility] Oxygen saturation in Arterial blood by Pulse oximetry 2024-01-31 16:34:00 95 /min [facility] Systolic blood pressure 2023-11-13 20:06:00 136 mm[Hg] [facility] Diastolic blood pressure 2023-11-13 20:06:00 58 mm[Hg] [facility] Body temperature 2023-11-13 20:06:00 36.44 Dotty [facility] Respiratory rate 2023-11-13 20:06:00 18 /min [facility] Body height 2023-11-13 20:06:00 149.9 cm [facility] Body weight 2023-11-13 20:06:00 38.737 kg [facility] BMI 2023-11-13 20:06:00 17.25 kg/m2 [facility] Oxygen saturation in Arterial blood by Pulse oximetry 2023-11-13 20:06:00 98 /min [facility] Systolic blood pressure 2023-05-16 17:18:00 171 mm[Hg] [facility] Diastolic blood pressure 2023-05-16 17:18:00 80 mm[Hg] [facility] Heart rate 2023-05-16 17:05:00 81 /min [facility] Res[facility] rate 2023-05-16 17:05:00 18 /min [facility] Body height 2023-05-16 17:05:00 149.9 cm [facility] Body weight 2023-05-16 17:05:00 43.772 kg [facility] BMI 2023-05-16 17:05:00 19.49 kg/m2 [facility] Oxygen saturation in Arterial blood by Pulse oximetry 2023-05-16 17:05:00 96 /min [facility] Systolic blood pressure 2023-05-09 17:37:00 207 mm[Hg] [facility] Diastolic blood pressure 2023-05-09 17:37:00 78 mm[Hg] [facility] Heart rate 2023-05-09 17:27:00 70 /min Unive [facility] Body temperature 2023-05-09 17:27:00 35.89 Dotty [facility] Body height 2023-05-09 17:27:00 149.9 cm [facility] weight 2023-05-09 17:27:00 43.545 kg [facility] BMI 2023-05-09 17:27:00 19.39 kg/m2 Univ [facility] Oxygen saturation in Arterial blood by Pulse oximetry 2023-05-09 17:27:00 97 /min [facility] Systolic blood pressure 2023-05-09 17:37:00 207 mm[Hg] [facility] Diastolic blood pressure 2023-05-09 17:37:00 78 mm[Hg] [facility] Heart rate 2023-05-09 17:26:00 70 /min Unive [facility] Body temperature 2023-05-09 17:26:00 35.89 Dotty [facility] Body height 2023-05-09 17:26:00 149.9 cm Univ [facility] Body weight 2023-05-09 17:26:00 43.545 kg [facility] BMI 2023-05-09 17:26:00 19.39 kg/m2 [facility] Oxygen saturation in Arterial blood by Pulse oximetry 2023-05-09 17:26:00 97 /min [facility] Systolic blood pressure 2023-04-30 17:40:00 182 mm[Hg] [facility] Diastolic blood pressure 2023-04-30 17:40:00 80 mm[Hg] [facility] Heart rate 2023-04-30 17:40:00 78 /min Unive [facility] Oxygen saturation in Arterial blood by Pulse oximetry 2023-04-30 17:40:00 97 /min [facility] Respiratory rate 2023-04-30 17:38:00 18 /min [facility] Body height 2023-04-30 17:38:00 149.9 cm [facility] Body weight 2023-04-30 17:38:00 44.453 kg [facility] BMI 2023-04-30 17:38:00 19.79 kg/m2 [facility] Systolic blood pressure 2023-01-25 18:48:00 199 mm[Hg] [facility] Diastolic blood pressure 2023-01-25 18:48:00 76 mm[Hg] [facility] Body weight 2023-01-25 18:22:00 46.947 kg [facility] BMI 2023-01-25 18:22:00 20.90 kg/m2 [facility] Systolic blood pressure 2023-01-15 21:02:00 148 mm[Hg] [facility] Diastolic blood pressure 2023-01-15 21:02:00 56 mm[Hg] [facility] Heart rate 2023-01-15 21:00:00 60 /min [facility] Body temperature 2023-01-15 21:00:00 37.28 Dotty [facility] Respiratory rate 2023-01-15 21:00:00 16 /min [facility] Body height 2023-01-15 21:00:00 149.9 cm [facility] Body weight 2023-01-15 21:00:00 45.859 kg [facility] BMI 2023-01-15 21:00:00 20.42 kg/m2 [facility] Oxygen saturation in Arterial blood by Pulse oximetry 2023-01-15 21:00:00 99 /min [facility] Systolic blood pressure 2023-01-03 19:36:00 212 mm[Hg] [facility] Diastolic blood pressure 2023-01-03 19:36:00 71 mm[Hg] [facility] Heart rate 2023-01-03 19:31:00 60 /min [facility] Body temperature 2023-01-03 19:31:00 36.22 Dotty [facility] Body height 2023-01-03 19:31:00 149.9 cm Univ [facility] Body weight 2023-01-03 19:31:00 47.038 kg Univ [facility] BMI 2023-01-03 19:31:00 20.94 kg/m2 [facility] Oxygen saturation in Arterial blood by Pulse oximetry 2023-01-03 19:31:00 99 /min [facility] Systolic blood pressure 2022-12-24 18:40:00 135 mm[Hg] [facility] Diastolic blood pressure 2022-12-24 18:40:00 65 mm[Hg] [facility] Heart rate 2022-12-24 18:39:00 60 /min Unive [facility] Respiratory rate 2022-12-24 18:39:00 18 /min [facility] Body height 2022-12-24 18:39:00 149.9 cm [facility] Body weight 2022-12-24 18:39:00 46.403 kg [facility] BMI 2022-12-24 18:39:00 20.66 kg/m2 [facility] Systolic blood pressure 2022-11-22 23:39:00 108 mm[Hg] [facility] Diastolic blood pressure 2022-11-22 23:39:00 88 mm[Hg] [facility] Heart rate 2022-11-22 23:39:00 60 /min Unive [facility] Respiratory rate 2022-11-22 23:39:00 21 /min [facility] Oxygen saturation in Arterial blood by Pulse oximetry 2022-11-22 23:39:00 99 /min [facility] Body temperature 2022-11-22 22:18:00 36.33 Dotty [facility] Body weight 2022-11-22 22:18:00 47.9 kg [facility] BMI 2022-11-22 22:18:00 21.33 kg/m2 [facility] Systolic blood pressure 2022-11-22 22:02:00 201 mm[Hg] [facility] Diastolic blood pressure 2022-11-22 22:02:00 69 mm[Hg] [facility] Heart rate 2022-11-22 21:08:00 59 /min Unive [facility] Body temperature 2022-11-22 21:08:00 36.56 Dotty [facility] Body height 2022-11-22 21:08:00 149.9 cm Univ [facility] Body weight 2022-11-22 21:08:00 47.854 kg Univ [facility] BMI 2022-11-22 21:08:00 21.31 kg/m2 [facility] Oxygen saturation in Arterial blood by Pulse oximetry 2022-11-22 21:08:00 99 /min [facility] Systolic blood pressure 2022-11-07 18:27:00 175 mm[Hg] [facility] Diastolic blood pressure 2022-11-07 18:27:00 74 mm[Hg] [facility] Heart rate 2022-11-07 18:27:00 61 /min Unive [facility] Body temperature 2022-11-07 18:27:00 36.39 Dotty [facility] Respiratory rate 2022-11-07 18:27:00 18 /min [facility] Body height 2022-11-07 18:27:00 149.9 cm [facility] Body weight 2022-11-07 18:27:00 46.766 kg [facility] BMI 2022-11-07 18:27:00 20.82 kg/m2 [facility] Oxygen saturation in Arterial blood by Pulse oximetry 2022-11-07 18:27:00 99 /min [facility] Systolic blood pressure 2022-05-09 17:16:00 161 mm[Hg] [facility] Diastolic blood pressure 2022-05-09 17:16:00 71 mm[Hg] [facility] Heart rate 2022-05-09 17:12:00 70 /min Unive [facility] Body temperature 2022-05-09 17:12:00 36.44 Dotty [facility] Respiratory rate 2022-05-09 17:12:00 18 /min [facility] Body height 2022-05-09 17:12:00 149.9 cm [facility] Body weight 2022-05-09 17:12:00 45.36 kg [facility] BMI 2022-05-09 17:12:00 20.20 kg/m2 [facility] Oxygen saturation in Arterial blood by Pulse oximetry 2022-05-09 17:12:00 97 /min [facility] Systolic blood pressure 2022-05-09 17:17:00 161 mm[Hg] [facility] Diastolic blood pressure 2022-05-09 17:17:00 71 mm[Hg] [facility] Heart rate 2022-05-09 17:07:00 70 /min [facility] Body temperature 2022-05-09 17:07:00 36.44 Dotty [facility] Respiratory rate 2022-05-09 17:07:00 18 /min [facility] Body height 2022-05-09 17:07:00 149.9 cm [facility] Body weight 2022-05-09 17:07:00 45.36 kg [facility] BMI 2022-05-09 17:07:00 20.20 kg/m2 [facility] Oxygen saturation in Arterial blood by Pulse oximetry 2022-05-09 17:07:00 97 /min [facility] Systolic blood pressure 2022-04-20 17:19:00 109 mm[Hg] [facility] Diastolic blood pressure 2022-04-20 17:19:00 66 mm[Hg] [facility] Heart rate 2022-04-20 17:19:00 57 [facility]min [facility] Body height 2022-04-20 17:19:00 149.9 cm [facility] weight 2022-04-20 17:19:00 44.453 [facility] BMI 2022-04-20 17:19:00 19.79 [facility] Sy[facility] blood pressure 2022-03-27 15:40:00 184 mm[Hg] [facility] Diastolic blood pressure 2022-03-27 15:40:00 81 mm[Hg] [facility] Heart rate 2022-03-27 15:40:00 67 /min [facility] Respiratory rate 2022-03-27 15:40:00 18 /min [facility] Body height 2022-03-27 15:40:00 149.9 cm [facility] Body weight 2022-03-27 15:40:00 45.36 kg [facility] BMI 2022-03-27 15:40:00 20.20 kg/m2 [facility] Oxygen saturation in Arterial blood by Pulse oximetry 2022-03-27 15:40:00 98 /min [place] [facility] Respiratory rate 2017-08-21 15:33:00 27 /min [facility] Procedures Procedure Date / Time Performed Performing Clinician Source GLYCOSYLATED HEMOGLOBIN (A1C) 2024-05-15 20:50:00 Chuy Castillo [facility] PNEUMOCOCCAL 20 CONJUGATE (PREVNAR 20) VACCINE 2024-05-15 20:05:36 Chuy Castillo [facility] FLU VACC(),65+YR,0.5 ML,IM,ADJUVANTED,TIV(FLUA D) 2024-05-15 20:05:36 Chuy Castillo [facility] OP CORRESPONDENCE 2023-07-10 06:01:00 Doctor Saray ssigned, [place] [facility] PAIN MANAGEMENT AGREEMENT & INFORMED CONSENT 2023-05-09 06:01:00 Doctor Unassigned, [place] [facility] CONSENT/REFUSAL FOR DIAGNOSIS AND TREATMENT 2023-04-30 17:20:51 Doctor Unassigned, [place] [facility] EXTERNAL PROVIDER RECORDS 2023-04-15 06:01:00 Do ctor Unassigned, [place] [facility] CT ABDOMEN PELVIS W CONTRAST 2023-03-19 16:37:55 Lauren Bolton [facility] OP CORRESPONDENCE 2023-02-01 05:01:00 Doctor Saray ssigned, [place] [facility] US ABDOMEN LIMITED 2022-12-18 16:37:34 Dameon Castillo [facility] ECG 12-LEAD 2022-12-07 18:22:50 HematJesse lang [facility] CONSENT/REFUSAL FOR DIAGNOSIS AND TREATMENT 2022-11-22 22:08:28 Doctor Unassigned, [place] [facility] FREE T4 2022-11-07 19:51:00 Chuy Castillo [facility] THYROID STIMULATING HORMONE 2022-11-07 19:51:00 Chuy Castillo [facility] COMP. METABOLIC PANEL (58689) 2022-11-07 19:51:00 Chuy Castillo [facility] LIPID PANEL (40889)(TOTAL CHOLESTEROL, TRIGLYCERIDES, HDL) 2022-11-07 19:51:00 Chuy Castillo [facility] CBC WITH DIFF 2022-11-07 19:51:00 Chuy Castillo [facility] GLYCOSYLATED HEMOGLOBIN (A1C) 2022-11-07 19:51:00 Chuy Castillo [facility] FREE T3 2022-11-07 19:51:00 Chuy Castillo [facility] CBCA W/PLT & AUTO DIFFERENTIAL 2019-07-22 00:00:00 [facility] COMPREHENSIVE METABOLIC PANEL 2019-07-22 00:00:00 [facility] CARDIAC MARKERS PANEL (ER) 2019-07-22 00:00:00 [facility] BNP RAPID 2019-07-22 00:00:00 [facility] TROPONIN I 2019-07-22 00:00:00 [facility] CHEST 1 VIEW (AP) 2019-07-22 00:00:[address] [facility] [address] ANGIOGRAM CHEST 2019-07-22 00:00:00 [facility] LUMBAR 2 OR 3 VIEWS 2019-07-09 00:00:00 [facility] CBCA W/PLT & AUTO DIFFERENTIAL 2018-07-05 00:00:00 [facility] COMPREHENSIVE METABOLIC PANEL 2018-07-05 00:00:00 [facility] PROTIME 2018-07-05 00:00:00 [facility] PTT 2018-07-05 00:00:00 [facility] CARDIAC MARKERS PANEL (ER) 2018-07-05 00:00:00 [facility] BNP RAPID 2018-07-05 00:00:00 [facility] ROUTINE URINALYSIS 2018-07-05 00:00:00 [facility] MAGNESIUM 2018-07-05 00:00:00 [facility] CHEST 1 VIEW (AP) 2018-07-05 00:00:00 [facility] Encounters Start Date/Time End Date/Time Encounter Type Admission Type Attending [facility] Care Facility Care Department Encounter ID Source 2022-06-12 09:31:04 Outpatient [facility] [id number] [facility] 2022-05-28 08:55:46 Outpatient [facility] [id number] [facility] 2022-05-25 12:54:23 Outpatient [facility] [id number] [facility] 2022-05-22 10:23:11 Outpatient [facility] [id number] [facility] 2022-05-11 08:32:39 Outpatient [facility] [id number] [facility] 2022-04-20 11:02:48 Outpatient [facility] [id number] [facility] 2022-04-19 13:23:11 Outpatient [facility] [id number] [facility] 2022-04-13 16:19:02 Outpatient [facility] [id number] [facility] 2022-04-10 13:04:37 Outpatient [facility] [id number] [facility] 2019-07-22 08:32:00 In[id number] 2024-11-13 13:20:00 2024-11-13 13:20:00 Outpatient CHUY SEGUNDO [facility] [id number] [facility] 2024-05-15 00:00:00 2024-05-26 09:44:51 Telephone Chuy Castillo [facility]HEL[facility] 1.2.840.114 350.1.13.10 4.2.7.2.686 [id number] [facility] 2024-05-15 13:20:00 2024-05-15 14:19:25 Outpatient R CHUY CASTILLO [facility] [id number] [facility] 2024-05-15 13:20:00 2024-05-15 14:19:25 Office Visit Chuy Castillo [facility] 1.2.840.114 350.1.13.10 4.2.7.2.686 [id number] [facility] 2024-05-15 13:00:00 2024-05-15 14:19:13 Office Visit Chuy Castillo [facility] 1.2.840.114 350.1.13.10 4.2.7.2.686 [id number] [facility] 2024-05-08 00:00:00 2024-05-10 18:13:02 Refill Chuy Castillo [facility] NAL [facility]ILD[facility] 1.2.840.114 350.1.13.10 4.2.7.2.686 [id number] [facility] 2024-05-01 00:00:00 2024-05-04 13:47:54 Telephone Aram Rondon [facility] 1.2.840.114 350.1.13.10 4.2.7.2.686 [id number] [facility] 2024-05-01 11:40:00 2024-05-01 11:40:00 Outpatient ARAM ROMO HOWARD [facility] [id number] [facility] 2024-04-30 00:00:00 2024-04-30 12:37:09 Refill Chuy Castillo [facility] 1.2.840.114 350.1.13.10 4.2.7.2.686 [id number] [facility] 2024-04-29 00:00:00 2024-04-29 14:26:56 Pre Visit Outreach Johann Divine Barrios Johann Divine Sophie [facility] 1.2.840.114 350.1.13.10 4.2.7.2.686 [id number] [facility] 2024-04-14 00:00:00 2024-04-14 20:19:13 Chuy John [facility] 1.2.840.114 350.1.13.10 4.2.7.2.686 [id number] [facility] 2024-04-01 00:00:00 2024-04-01 11:23:53 Patient Outreach Joyce Acharya [facility] 1.2.840.114 350.1.13.10 4.2.7.2.686 [id number] [facility] 2024-03-31 13:30:00 2024-03-31 15:00:56 Outpatient R SONNY HUNT OGECHUKWU [facility] [id number] [facility] 2024-03-31 13:30:00 2024-03-31 15:00:56 Office Visit Sonny Hunt [facility] 1.2.840.114 350.1.13.10 4.2.7.2.686 [id number] [facility] 2024-03-02 00:00:00 2024-03-03 19:56:08 Chuy John [facility] 1.2.840.114 350.1.13.10 4.2.7.2.686 [id number] [facility] 2024-03-02 00:00:00 2024-03-03 19:55:03 [facility] 1.2.840.114 350.1.13.10 4.2.7.2.686 [id number] [facility] 2024-02-18 13:30:00 2024-02-18 13:30:00 Outpatient R AVINASH HUNTROSITASHAWANDA CALLOWAYTY [facility] [id number] [facility] 2024-02-13 00:00:00 2024-02-14 13:40:44 [facility] 1.2.840.114 350.1.13.10 4.2.7.2.686 [id number] [facility] 2024-02-13 00:00:00 2024-02-14 11:00:56 [facility]phone [facility] 1.2.840.114 350.1.13.10 4.2.7.2.686 [id number] [facility] 2024-02-06 00:00:00 2024-02-07 10:21:09 Refill Anna [facility] BUILDING 1.2.840.114 350.1.13.10 4.2.7.2.686 [id number] [facility] 2024-02-05 11:30:00 2024-02-05 11:30:00 Outpatient R JITENDRA HUNTJanayCaroline AVINASH HUNTLENNIE [facility] [id number] [facility] 2024-02-04 00:00:00 2024-02-05 09:14:34 Telephone Chuy Castillo [facility] 1.2.840.114 350.1.13.10 4.2.7.2.686 [id number] [facility] 2024-01-31 11:30:00 2024-01-31 11:55:16 Outpatient R ZHOUCIHLOJING [facility] [id number] [facility] 2024-01-31 11:30:00 2024-01-31 11:55:16 [facility] 1..840.114 350.1.13.10 4.2.7.2.686 [id number] [facility] 2024-01-14 15:30:00 2024-01-14 15:30:00 Outpatient R ABELARDO JING [facility] [id number] [facility] 2024-01-02 11:30:00 2024-01-02 11:30:00 Out[facility] [id number] [facility] 2023-12-28 00:00:00 2023-12-28 00:00:00 Outpatient JENNIFER LOVELL SHIWAN [facility] [id number] [facility] 2023-12-26 00:00:00 2023-12-26 11:42:33 [facility] 1..840.114 350.1.13.10 4.2.7.2.686 [id number] [facility] 2023-12-26 00:00:00 2023-12-26 11:35:03 [facility] 1..840.114 350.1.13.10 4.2.7.2.686 [id number] [facility] 2023-11-29 00:00:00 2023-11-29 15:54:11 Telephone Chuy Castillo [facility] 1..840.114 350.1.13.10 4.2.7.2.686 [id number] [facility] 2023-11-21 00:00:00 2023-11-22 08:27:04 Refill Abelardo [facility] KAEL?[facility] 1.2.840.114 350.1.13.10 4.2.7.2.686 [id number] 092 [id number] [facility] 2023-11-21 00:00:00 2023-11-22 08:25:29 [facility] 1.2.840.114 350.1.13.10 4.2.7.2.686 [id number] 092 [id number] [facility] 2023-11-21 00:00:00 2023-11-22 08:17:37 Refill Abelardo [facility] KAEL[facility] 1.2.840.114 350.1.13.10 4.2.7.2.686 [id number] 092 [id number] [facility] 2023-11-13 15:00:00 2023-11-13 16:07:19 Outpatient R CHUY CASTILLO [facility] [id number] [facility] 2023-11-13 15:00:00 2023-11-13 16:07:19 Office Visit Chuy Castillo [facility] 1.2.840.114 350.1.13.10 4.2.7.2.686 [id number] 044 [id number] [facility] 2023-10-31 00:00:00 2023-11-01 13:05:01 Refill Chuy Castillo [facility] 1.2.840.114 350.1.13.10 4.2.7.2.686 [id number] 044 [id number] [facility] 2023-10-21 00:00:00 2023-10-24 09:31:31 Refill Chuy Castillo [facility] 1.2.840.114 350.1.13.10 4.2.7.2.686 [id number] 044 [id number] [facility] 2023-10-18 00:00:00 2023-10-18 16:22:25 Refill Jing Seals [facility] 1.2.840.114 350.1.13.10 4.2.7.2.686 [id number] 044 [id number] [facility] 2023-10-01 00:00:00 2023-10-01 00:00:00 Refill AnnaChuy [facility] 1.2.840.114 350.1.13.10 4.2.7.2.686 [id number] 044 [id number] [facility] 2023-08-29 00:00:00 2023-08-29 00:00:00 Refill Anna Chuy [facility] 1.2.840.114 350.1.13.10 4.2.7.2.686 [id number] 044 [id number] [facility] 2023-08-23 11:30:00 2023-08-23 11:30:00 Outpatient SONNY MEDRANO OGECHUKWU [facility] [id number] [facility] 2023-08-14 00:00:00 2023-08-14 00:00:00 Refill Anna Chuy [facility] 1.2.840.114 350.1.13.10 4.2.7.2.686 [id number] 044 [id number] [facility] 2023-08-14 00:00:00 2023-08-14 00:00:00 Refill Jing Zhou [facility] 1.2.840.114 350.1.13.10 4.2.7.2.686 [id number] [facility] 2023-08-09 11:40:00 2023-08-09 11:40:00 Outpatient R CHUY CASTILLO [facility] [id number] [facility] 2023-07-30 00:00:00 2023-07-30 00:00:00 Telephone Chuy Castillo [facility] 1.2.840.114 350.1.13.10 4.2.7.2.686 [id number] 044 [id number] [facility] 2023-07-24 00:00:00 2023-07-24 00:00:00 Refill Chuy Castillo [facility] 1.2.840.114 350.1.13.10 4.2.7.2.686 [id number] 044 [id number] [facility] 2023-07-10 00:00:00 2023-07-10 00:00:00 Telephone Chuy Castillo [facility] 1.2.840.114 350.1.13.10 4.2.7.2.686 [id number] 044 [id number] [facility] 2023-07-10 00:00:00 2023-07-10 00:00:00 Telephone Chuy Castillo [facility] 1.2.840.114 350.1.13.10 4.2.7.2.686 [id number] 044 [id number] [facility] 2023-07-10 00:00:00 2023-07-10 00:00:00 Orders Only Doctor Unassigned, Lambert [facility] 1.2.840.114 350.1.13.10 4.2.7.2.686 [id number] [facility] 2023-07-09 12:15:00 2023-07-09 12:30:00 Track Repair Supervisor Visit Pob, Adc Lab Main Chuy Castillo [facility] 1.2.840.114 350.1.13.10 4.2.7.2.686 [id number] [facility] 2023-07-09 12:15:00 2023-07-09 12:15:00 Outpatient R CHUY CASTILLO [facility] [id number] [facility] 2023-07-09 00:00:00 2023-07-09 00:00:00 Nurse Triage Emy Sharma [facility] 1.2.840.114 350.1.13.10 4.2.7.2.686 [id number] 019 [id number] [facility] 2023-07-08 00:00:00 2023-07-08 00:00:00 Refill Chuy Castillo [facility] 1.2.840.114 350.1.13.10 4.2.7.2.686 [id number] 044 [id number] [facility] 2023-06-24 00:00:00 2023-06-24 00:00:00 Refill Chuy Castillo [facility] 1.2.840.114 350.1.13.10 4.2.7.2.686 [id number] 044 [id number] [facility] 2023-06-18 12:00:00 2023-06-18 12:00:00 Outpatient R [facility] [id number] [facility] 2023-05-31 12:45:38 2023-05-31 23:59:00 Hospital Encounter Jennifer Goff [facility] 1.2.840.114 350.1.13.10 4.2.7.2.686 [id number] [facility] 2023-05-31 12:44:27 2023-05-31 12:44:27 Outpatient R CHUY CASTILLO [facility] [id number] [facility] 2023-05-31 12:44:27 2023-05-31 12:44:27 Hospital Encounter Chuy Castillo [facility] 1.840.114 350.1.13.10 4.2.7.2.686 [id number] [facility] 2023-05-30 00:00:00 2023-05-30 00:00:00 Refill Chuy Castillo [facility] 1.84.114 350.1.13.10 4.2.7.2.686 [id number] 044 [id number] [facility] 2023-05-24 00:00:00 2023-05-24 00:00:00 Outpatient R JENNIFER GOFF SHIWAN [facility] [id number] [facility] 2023-05-23 00:00:00 2023-05-23 00:00:00 Outpatient R JENNIFER GOFF SHIWAN [facility] [id number] [facility] 2023-05-16 11:30:00 2023-05-16 11:31:05 Outpatient R ABELARDO [facility] [id number] [facility] 2023-05-16 11:30:00 2023-05-16 11:31:05 Office Visit Jing [facility] 1.840.114 350.1.13.10 4.2.7.2.686 [id number] 092 [id number] [facility] 2023-05-14 00:00:00 2023-05-14 00:00:00 Patient Secure Msg Doctor Unassigned, Lambert [facility] 1.84.114 350.1.13.10 4.2.7.2.686 [id number] [facility] 2023-05-10 13:30:00 2023-05-10 13:30:00 Outpatient R ABELARDO JING [facility] [id number] [facility] 2023-05-10 00:00:00 2023-05-10 00:00:00 Patient Secure Msg Doctor Unassigned, Lambert [facility] 1.2840.114 350.1.13.10 4.2.7.2.686 [id number] [facility] 2023-05-09 11:00:00 2023-05-09 12:16:17 Outpatient R CHUY CASTILLO [facility] [id number] [facility] 2023-05-09 11:00:00 2023-05-09 12:16:17 Office Visit Chuy Castillo [facility] 1.20.114 350.1.13.10 4.2.7.2.686 [id number] 044 [id number] [facility] 2023-05-09 10:40:00 2023-05-09 12:16:04 Office Visit Chuy Castillo [facility] 1.2840.114 350.1.13.10 4.2.7.2.686 [id number] 044 [id number] [facility] 2023-05-09 00:00:00 2023-05-09 00:00:00 Orders Only Doctor Unassigned, Lambert [facility] 1.2840.114 350.1.13.10 4.2.7.2.686 [id number] [id number] [facility] 2023-05-08 00:00:00 2023-05-08 00:00:00 [facility]ill [facility] 1.2840.114 350.1.13.10 4.2.7.2.686 [id number] 044 [id number] [facility] 2023-05-07 00:00:00 2023-05-07 00:00:00 Refill Chuy Castillo [facility] 1.84.114 350.1.13.10 4.2.7.2.686 [id number] 044 [id number] [facility] 2023-05-06 13:30:00 2023-05-06 13:30:00 Outpatient JING AGUILERA [facility] [id number] [facility] 2023-05-06 00:00:00 2023-05-06 00:00:00 Refill Chuy Castillo [facility] 1.84.114 350.1.13.10 4.2.7.2.686 [id number] 044 [id number] [facility] 2023-04-30 11:00:00 2023-04-30 12:10:14 Outpatient JENNIFER LOVELL SHIKYSenait [facility] [id number] [facility] 2023-04-30 11:00:00 2023-04-30 12:10:14 Office Visit Jennifer Goff [facility] 1.114 350.1.13.10 4.2.7.2.686 [id number] [facility] 2023-04-30 00:00:00 2023-04-30 00:00:00 Orders Only Doctor Unassigned, Lambert [facility] 1.114 350.1.13.10 4.2.7.2.686 [id number] [id number] [facility] 2023-04-29 00:00:00 2023-04-29 00:00:00 Refill Jing Zhou PENDING SALE TO [facility]EL[facility] 1.114 350.1.13.10 4.2.7.2.686 [id number] 092 [id number] [facility] 2023-04-24 00:00:00 2023-04-24 00:00:00 Refill Chuy Castillo [facility] 1.2.840.114 350.1.13.10 4.2.7.2.686 [id number] 044 [id number] [facility] 2023-04-22 00:00:00 2023-04-22 00:00:00 Refill Chuy Castillo [facility] 1.2840.114 350.1.13.10 4.2.7.2.686 [id number] 044 [id number] [facility] 2023-04-15 00:00:00 2023-04-15 00:00:00 Orders Only Doctor Unassigned, Lambert [facility] 1.2840.114 350.1.13.10 4.2.7.2.686 [id number] [id number] [facility] 2023-04-08 00:00:00 2023-04-08 00:00:00 Refill YolatigreChuy [facility] 1.2840.114 350.1.13.10 4.2.7.2.686 [id number] 044 [id number] [facility] 2023-03-28 00:00:00 2023-03-28 00:00:00 Refill Chuy Castillo [facility] 1.2840.114 350.1.13.10 4.2.7.2.686 [id number] 044 [id number] [facility] 2023-03-25 00:00:00 2023-03-25 00:00:00 Refill Jing Zhou PENDING SALE TO [facility]EL?[facility] 1.2840.114 350.1.13.10 4.2.7.2.686 [id number] 092 [id number] [facility] 2023-03-19 10:16:12 2023-03-19 23:59:00 Outpatient R LAUREN BOLTON [facility] [id number] [facility] 2023-03-19 10:16:12 2023-03-19 23:59:00 Hospital Encounter Lauren Bolton [facility] 1.2840.114 350.1.13.10 4.2.7.2.686 [id number] [facility] 2023-02-18 00:00:00 2023-02-18 00:00:00 [facility] 1..114 350.1.13.10 4.2.7.2.686 [id number] [id number] [facility] 2023-02-01 00:00:00 2023-02-01 00:00:00 Orders Only Doctor Unassigned, Lambert [facility] 1.0.114 350.1.13.10 4.2.7.2.686 [id number] [id number] [facility] 2023-01-28 00:00:00 2023-01-28 00:00:00 Telephone River Bentley [facility]AL [facility] 1.114 350.1.13.10 4.2.7.2.686 [id number] 044 [id number] [facility] 2023-01-25 13:00:00 2023-01-25 13:51:43 Outpatient R CHILO ZHOUSSICA [facility] [id number] [facility] 2023-01-25 13:00:00 2023-01-25 13:51:43 Office Visit Zhou [facility] 1.114 350.1.13.10 4.2.7.2.686 [id number] 092 [id number] [facility] 2023-01-25 00:00:00 2023-01-25 00:00:00 Telephone Jing Zhou [facility]END[facility] S[facility] 1.2.840.114 350.1.13.10 4.2.7.2.686 [id number] 092 [id number] [facility] 2023-01-16 00:00:00 2023-01-16 00:00:00 Patient Secure Msg Doctor Unassigned, Lambert [facility] 1.284.114 350.1.13.10 4.2.7.2.686 [id number] 019 [id number] [facility] 2023-01-15 15:40:00 2023-01-15 16:51:06 Outpatient R OBI-ANDI , [facility] [id number] [facility] 2023-01-15 15:40:00 2023-01-15 16:51:06 [facility] 1.2.840.114 350.1.13.10 4.2.7.2.686 [id number] 044 [id number] [facility] 2023-01-11 00:00:00 2023-01-11 00:00:00 Telephone [facility] 1.2.840.114 350.1.13.10 4.2.7.2.686 [id number] 044 [id number] [facility] 2023-01-03 14:20:00 2023-01-03 15:14:02 [facility] 1.2.840.114 350.1.13.10 4.2.7.2.686 [id number] 044 [id number] [facility] 2023-01-03 14:20:00 2023-01-03 15:14:02 Outpatient R OBI-ANDI , [place] OBI-Caroline ESCAMILLAZOMA [facility] [id number] [facility] 2022-12-24 13:30:00 2022-12-24 14:26:38 Outpatient R CHILO [facility]LEN [facility] [id number] [facility] 2022-12-24 13:30:00 2022-12-24 14:26:38 Office Visit Chilo Zhoussica [facility] 1.2.840.114 350.1.13.10 4.2.7.2.686 [id number] 092 [id number] [facility] 2022-12-21 00:00:00 2022-12-21 00:00:00 Telephone [facility] 1.2.840.114 350.1.13.10 4.2.7.2.686 [id number] 044 [id number] [facility] 2022-12-18 11:15:58 2022-12-18 23:59:00 Outpatient R CHUY CASTILLO [facility] [id number] [facility] 2022-12-18 11:00:00 2022-12-18 23:59:00 Hospital Encounter Chuy Castillo [facility] 1.2.840.114 350.1.13.10 4.2.7.2.686 [id number] [facility] 2022-12-13 13:45:00 2022-12-13 13:45:00 Outpatient R CHUY CASTILLO [facility] [id number] [facility] 2022-12-10 13:00:00 2022-12-10 13:00:00 Outpatient R CHUY CASTILLO [facility] [id number] [facility] 2022-12-10 00:00:00 2022-12-10 00:00:00 Patient Secure Msg Doctor Unassigned, Lambert [facility] 1.2840.114 350.1.13.10 4.2.7.2.686 [id number] 019 [id number] [facility] 2022-12-10 00:00:00 2022-12-10 00:00:00 Patient Secure Msg Doctor Unassigned, Lambert [facility] 1.2840.114 350.1.13.10 4.2.7.2.686 [id number] [facility] 2022-12-03 00:00:00 2022-12-03 00:00:00 Outpatient R CHUY CASTILLO [facility] [id number] [facility] 2022-11-30 00:00:00 2022-11-30 00:00:00 Patient Secure Msg Doctor Unassigned, Lambert [facility] 1.2840.114 350.1.13.10 4.2.7.2.686 [id number] [id number] [facility] 2022-11-22 17:20:00 2022-11-22 18:50:00 [facility] 1.840.114 350.1.13.10 4.2.7.2.686 [id number] [facility] 2022-11-22 16:00:00 2022-11-22 17:06:38 Outpatient R CHUY CASTILLO [facility] [id number] [facility] 2022-11-22 16:00:00 2022-11-22 17:06:38 Outpatient R CHUY CASTILLO [facility] [id number] [facility] 2022-11-22 16:00:00 2022-11-22 17:06:38 Office [facility] 1.2840.114 350.1.13.10 4.2.7.2.686 [id number] 044 [id number] [facility] 2022-11-21 00:00:00 2022-11-21 00:00:00 Telephone Chuy Castillo [facility] 1.2.840.114 350.1.13.10 4.2.7.2.686 [id number] 044 [id number] [facility] 2022-11-07 15:15:00 2022-11-07 15:30:00 Track Repair Supervisor Visit 2, Adc Lab Chuy Castillo [facility] 1.2.840.114 350.1.13.10 4.2.7.2.686 [id number] [facility] 2022-11-07 13:20:00 2022-11-07 14:09:34 Outpatient R CHUY CASTILLO [facility] [id number] [facility] 2022-11-07 13:20:00 2022-11-07 14:09:34 Office Visit Chuy Castillo [facility] 1.2.840.114 350.1.13.10 4.2.7.2.686 [id number] 044 [id number] [facility] 2022-10-31 00:00:00 2022-10-31 00:00:00 Refill Chuy Castillo [facility] 1.2.840.114 350.1.13.10 4.2.7.2.686 [id number] 044 [id number] [facility] 2022-10-25 00:00:00 2022-10-25 00:00:00 Refill Chuy Castillo [facility] 1.2.840.114 350.1.13.10 4.2.7.2.686 [id number] [id number] [facility] 2022-10-02 13:30:00 2022-10-02 13:30:00 Outpatient JING AGUSTIN [facility] [id number] [facility] 2022-09-04 16:00:00 2022-09-04 16:00:00 Outpatient JING AGUSTIN [facility] [id number] [facility] 2022 15:00:00 2022 15:00:00 Outpatient JING AGUSTIN [facility] [id number] [facility] 2022-08-27 00:00:00 2022-08-27 00:00:00 Telephone CjwinstonChuy hutchinson [facility] 1.2.840.114 350.1.13.10 4.2.7.2.686 [id number] 044 [id number] [facility] 2022-08-06 00:00:00 2022-08-06 00:00:00 Refill CjwinstonChuy hutchinson [facility] 1.2.840.114 350.1.13.10 4.2.7.2.686 [id number] 044 [id number] [facility] 2022-08-06 00:00:00 2022-08-06 00:00:00 Telephone Anna Chuy [facility] 1.2.840.114 350.1.13.10 4.2.7.2.686 [id number] 044 [id number] [facility] 2022-08-02 12:30:00 2022-08-02 12:30:00 Outpatient JING AGUSTIN [facility] [id number] [facility] 2022-07-31 00:00:00 2022-07-31 00:00:00 Telephone [facility] 1.2.840.114 350.1.13.10 4.2.7.2.686 [id number] 044 [id number] [facility] 2022-06-29 10:00:00 2022-06-29 10:00:00 Outpatient R SHARONCHEYENNE Mathews [facility] [id number] [facility] 2022-06-15 00:00:00 2022-06-15 00:00:00 Refill CjwinstonChuy hutchinson [facility] 1.2.840.114 350.1.13.10 4.2.7.2.686 [id number] 044 [id number] [facility] 2022-06-12 14:00:00 2022-06-12 14:00:00 Outpatient MCKENZIE PÉREZ [facility] [id number] [facility] 2022-05-28 00:00:00 2022-05-28 00:00:00 Outpatient Josef CASTILLO [facility] [id number] [facility] 2022-05-28 00:00:00 2022-05-28 00:00:00 Refill Anna [facility] 1.2.840.114 350.1.13.10 4.2.7.2.686 [id number] 044 [id number] [facility] 2022-05-25 12:55:00 2022-05-25 17:40:00 Outpatient HEMATPOUR, MELAYAR [facility] [address] [facility] 2022-05-17 00:00:00 2022-05-17 00:00:[address] [facility] 1.2.840.114 350.1.13.10 4.2.7.2.686 [id number] 044 [id number] [facility] 2022-05-11 00:00:00 2022-05-11 00:00:00 Telephone Anna [facility] BUILDING 1.2.840.114 350.1.13.10 4.2.7.2.686 [id number] 044 [id number] [facility] 2022-05-09 14:00:00 2022-05-09 14:00:00 Office Visit Chuy Castillo [facility] 1.2.840.114 350.1.13.10 4.2.7.2.686 [id number] 044 [id number] [facility] 2022-05-09 14:00:00 2022-05-09 12:15:25 Outpatient R CHUY CASTILLO [facility] [id number] [facility] 2022-05-09 10:20:00 2022-05-09 12:15:16 Office Visit Chuy Castillo [facility] 1.2840.114 350.1.13.10 4.2.7.2.686 [id number] 044 [id number] [facility] 2022-05-09 00:00:00 2022-05-09 00:00:00 Telephone Chuy Castillo [facility] 1.2840.114 350.1.13.10 4.2.7.2.686 [id number] 044 [id number] [facility] 2022-04-26 00:00:00 2022-04-26 00:00:00 Telephone Chuy Castillo [facility] 1.2840.114 350.1.13.10 4.2.7.2.686 [id number] [id number] [facility] 2022-04-20 11:00:00 2022-04-20 12:00:15 Office Visit Hematpour, Jesse [facility] [address] 1.2840.114 350.1.13.58 9.2.7.2.686 [id number] [facility] 2022-04-18 00:00:00 2022-04-18 00:00:00 Case Management Radiology [facility] 1.20.114 350.1.13.10 4.2.7.2.686 [id number] [id number] [facility] 2022-04-17 00:00:00 2022-04-17 00:00:00 Telephone Chuy Castillo [facility] 1.2.840.114 350.1.13.10 4.2.7.2.686 [id number] [facility] 2022-04-11 00:00:00 2022-04-11 00:00:00 Refill Chuy Castillo [facility] 1.2.840.114 350.1.13.10 4.2.7.2.686 [id number] [facility] 2022-04-11 00:00:00 2022-04-11 00:00:00 Telephone AngelaChuy hutchinson [facility] 1.2.840.114 350.1.13.10 4.2.7.2.686 [id number] [facility] 2022-03-28 00:00:00 2022-03-28 00:00:00 Telephone Chuy Castillo [facility] 1.2.840.114 350.1.13.10 4.2.7.2.686 [id number] [facility] 2022-03-27 10:00:00 2022-03-27 12:21:36 Office Visit Anna Chuy [facility] 1.2.840.114 350.1.13.10 4.2.7.2.686 [id number] [facility] 2022-03-27 10:00:00 2022-03-27 12:21:36 Outpatient R CJJAYCHUY [facility] [id number] [facility] 2022-03-27 00:00:00 2022-03-27 00:00:00 Telephone [place]uy [place] [id number] 350.1.13.10 4.2.7.2.686 [id number] [facility] 2022-01-22 16:38:00 2022-01-22 16:38:00 Outpatient Encounter [facility] 2.16.840.1. [id number] 11:38:00 2022-01-22 11:38:00 Outpatient 3 YAO [place]O [facility] [address] [place] [facility] 2022-01-21 18:39:00 2022-01-21 21:19:00 Emergency Department Patient Visit [facility] 2.16.840.1. [id number] 13:39:00 2022-01-21 16:19:00 Emergency 1 KOLE BOYCE [facility] [address] [place] [facility] 2021-12-23 20:33:00 2021-12-23 22:30:00 Emergency Department Patient Visit [facility] 2.16.840.1. [id number] 15:33:00 2021-12-23 17:30:00 Emergency 1 KOLE BOYCE [facility] [address] [place] [facility] 2021-07-12 05:56:00 2021-07-12 11:50:00 [facility] Department [facility] [id number] [facility] 2021-07-11 23:56:00 2021-07-12 05:50:00 Emergency 1 OMAR GRAFF [facility] [address] [place] [facility] 2021-06-22 15:54:00 2021-06-22 15:54:00 [facility] [id number] [facility] 2021-06-22 09:54:00 2021-06-22 09:54:00 Outpatient 3 JJ WOODARD [facility] [place] [id number] [place] [facility] 2021-06-01 17:07:00 2021-06-01 17:07:00 [facility] [id number] [facility] 2021-06-01 11:07:00 2021-06-01 11:07:00 Outpatient 3 JJ WOODARD [facility] [address] [place] [facility] 2021-03-19 17:00:00 2021-03-19 22:14:00 Emergency 1 OMAR GRAFF [facility] [address] [place] [facility] 2020-12-28 13:00:00 2020-12-28 13:00:00 Outpatient 3 YAO [place] [facility] [address] [place] [facility] 2019-07-22 01:36:00 2019-07-22 07:37:00 Departed Emergency [facility] [id number] [facility] 2019-07-09 10:27:00 2019-07-09 10:27:00 Registered Referral [facility] [id number] [place] [facility] [facility] 2018[facility] 00:20:00 2018-07-05 04:45:00 Departed Emergency Kyle Mann EliseGena [facility] [id number] [facility] Results Test Description Test Time Test Comments Results Result Co mments Source [facility] METABOLIC [id number] 08:11:00* Test Item Value Reference Range Interpretation Comme nts SODIUM (test code = NA) 139.0 mmol/L 133-144 N POTASSIUM (test code = K) 3.5 mmol/L 3.5-5.1 N CHLORIDE (test code = CL) 108 mmol/L 95-105 H CARBON DIOXIDE (test code = CO2) 28 mmol/L 21-32 N ANION GAP (test code = GAP) 3.0 GAP calc 4.0-15.0 L GLUCOSE (test code = GLU) 93 MG/DL 70-110 N BLOOD UREA NITROGEN (test code = BUN) 16 MG/DL 7-18 N CREATININE (test code = CREAT) 0.99 MG/DL 0.55-1.30 N Results may be depressed if patient is takingN-Acetylcyste ine (NAC) and Metamizole (Dipyrone). CALCIUM (test code = CA) 8.5 MG/DL 8.5-10.1 N INDEX HEMOLYSIS (test code = HEMINDEX) 1 NORMAL <10 MG Index/DL 1 NORMAL INDEX ICTERIC (test code = ICTINDEX) 1 NORMAL <2 MG Index/DL 1 NORMAL INDEX LIPEMIA (test code = LIPINDEX) 1 NORMAL <50 MG Index/DL 1 NORMAL LIPID PROFILE (CORONARY RISK)2019-07-23 08:11:00* Test Item [...] Average5.03 Two times average6.14 Three times average [id number] 08:11:00* Test Item Value Reference Range Interpretation Comme nts MAGNESIUM (test code = MAG) 2.1 MG/DL 1.6-2.6 N BASIC METABOLIC [id number] 08:00:00* Test Item Value Reference Range Interpretation [...] (test code = LDL/HDL) Ratio 1.48-3.22 Avg [id number] 08:00:00* Test Item Value Reference Range Interpretation Comme nts MAGNESIUM (test code = MAG) MG/DL 1.6-2.6 CBC W/AUTO [id number] 07:28:00* Test Item Value Reference Range Interpretation [...] code = NRBC#) 0.00 K/mm3 0.0-0.05 N [id number] 15:33:00* Test Item Value Reference Range Interpretation Comme [facility] TROPONIN-I (test code = TROPI) 0.135 NG/ML [...] of temporal changes in troponin levelscharacteristic of [place]. B-TYPE NATRIURETIC [id number] 14:17:00* Test Item Value Reference Range Interpretation Comme [facility] B-TYPE NATRIURETIC PEPTIDE ( test code = BNP) 812.07 PG/ML 0.00-100.00 H [id number]-[id number] 12:15:00* Test Item Value Reference Range Interpretation Comme [facility] TROPONIN-I (test code = TROPI) 0.146 [...] of temporal changes in troponin levelscharacteristic of [place]. EMERGENCY ROOM [id number] 11:32:00* Test Item Value Reference Range Interpretation Comme nts DIAGNOSIS (test code = DIAG) SPECIMENS RCVED SPECIMEN RECEIVED BASIC METABOLIC [id number] 09:13:00* Test Item Value Reference Range Interpretation [...] 1 NORMAL <50 MG Index/DL 1 NORMAL [id number] 09:13:00* Test Item Value Reference Range Interpretation [...] of temporal changes in troponin levelscharacteristic of [place]. BASIC METABOLIC [id number] 09:03:00* Test Item Value Reference Range Interpretation [...] 1 NORMAL <50 MG Index/DL 1 NORMAL [id number] 09:03:00* Test Item Value Reference Range Interpretation Comme nts TROPONIN-I (test code = TROPI) NG/ML 0.000-0.045 - XR CHEST 1 [id number] 08:54:00FAX: Latrell Bob MD [phone] [place]: St: PRE Patient Name: JJ PURDY Unit No: [id number] EXAMS: CPT CODE: [id number] XR CHEST 1 V 51053 LOCATION: T18 EXAM: CHEST 1 VIEW INDICATION: , Chest pain COMPARISON: None.TECHNIQUE: AP chest radiograph. FINDINGS: Left AICD in place. No consolidation or pleural effusion is seen. There is asymmetric focal density in the right lung apex measuring 2.1 cm. This may be secondary to bony overlap and soft tissue shadowing. However the asymmetry is concerning for nodule. Heart is normal in size. Patient status post median sternotomy. Bones and peripheral soft tissues are unremarkable. IMPRESSION: Right apical nodule measuring 2.[address] Lungs are otherwise clear. at 0854 Reported and signed by: Kurt Fernández MD CC: Latrell Bob MD Dictated Date/Time: 07/22/2019 (0854)Technologist: JOSE PURCELL Transcribed Date/Time: 07/22/2019 (0854) By: [email or web address] Orig Print D/T: S: 07/22/2019 (0857) KATIE Marine NAME: [id number] PHYS: Latrell Barajas [place], [place] [address] : 1935 AGE: 83 SEX: F LOC: CATHI PHONE #: [phone] EXAM DATE: 07/22/2019 STATUS: PRE ER FAX #: [phone] RAD NO: DC Dt: PAGE 1 Signed ReportTROPONIN I [id number] 08:53:00* Test Item Value Reference Range Interpretation [...] of temporal changes in troponin levelscharacteristic of [place]. CBC W/O [id number] 08:47:00* Test Item Value Reference Range Interpretation [...] = MPV) 9.5 fL 6.8-11.2 N Troponin [id number] 04:00:00* Test Item Value Reference Range Interpretation Comme nts Troponin I (test code = 22855-1) 0.05 0.00-0.03 Troponin I-Interpretation Reference : <0.03 [...] Serial sampli ng is critical for accurate diagnosis.[facility] CenterWhite Blood [id number] 02:15:00* Test Item Value Reference Range Interpretation Comme [facility] White Blood Count (test code = 6690-2) 14.1 4.0-11.6 [facility] CenterRed Blood [id number] 02:15:00* Test Item Value Reference Range Interpretation Comme [facility] Red Blood Count (test code = 789-8) 4.06 3.51-5.34 [facility] CenterHemoglobin2020-02-12 02:15:00* Test Item Value Reference Range Interpretation Comme [facility] Hemoglobin (test code = 718-7) 12.6 10.9-15.9 [facility] CenterHematocrit2020-02-12 02:15:00* Test Item Value Reference Range Interpretation Comme [facility] Hematocrit (test code = 03200-9) 37.1 32.8-47.0 [facility] Corpuscular Ijhuqe6460-54-56 02:15:00* Test Item Value Reference Range Interpretation Comme [facility] Mean Corpuscular Volume (mundo t code = 31338-4) 91.3 80.3-100.6 [facility] Corpuscular Fgkbyfcbee3776-45-21 02:15:00* Test Item Value Reference Range Interpretation Comme [facility] Mean Corpuscular Hemoglobin (test code = 79965-3) 30.9 26.4-34.5 [facility] Corpuscular Hgb Concent Fdzu0896-22-90 02:15:00 * Test Item Value Reference Range Interpretation Comme [facility] Mean Corpuscular Hgb Concent Diff (test code = 56373-3) 33.9 32.0-36.0 [facility] CenterRed Cell Distribution Kstuz6578-46-26 02:15:00* Test Item Value Reference Range Interpretation Comme [facility] Red Cell Distribution Width (test code = 95833-4) 13.2 11.6-16.3 [facility] CenterPlatelet [id number] 02:15:00* Test Item Value Reference Range Interpretation Comme [facility] Platelet Count (test code = 777-3) 230 155-428 [facility] Platelet Btgfin6591-06-51 02:15:00* Test Item Value Reference Range Interpretation Comme [facility] Mean Platelet Volume (test c ode = 12281-9) 8.1 6.7-10.5 [facility] CenterGranulocytes (%)2019-07-22 02:15:00* Test Item Value Reference Range Interpretation Comme [facility] Granulocytes (%) (test code = 82406-0) 75.8 40.9-78. 1 [facility] CenterLymphocytes %2019-07-22 02:15:00* Test Item Value Reference Range Interpretation Comme nts Lymphocytes % (test code = 736-9) 14.9 13.7-46.9 [facility] HospitalMonocytes %2019-07-22 02:15:00* Test Item Value Reference Range Interpretation Comme nts Monocytes % (test code = 5905-5) 7.4 4.4-12.8 [facility] HospitalEosinophils %2019-07-22 02:15:00* Test Item Value Reference Range Interpretation Comme nts Eosinophils % (test code = 713-8) 1.6 0.6-7.5 [facility] HospitalBasophils %2019-07-22 02:15:00* Test Item Value Reference Range Interpretation Comme nts Basophils % (test code = 75583-0) 0.3 0.0-2.0 [facility] CenterGranulocytes #2019-07-22 02:15:00* Test Item Value Reference Range Interpretation Comme nts Granulocytes # (test code = 44489-4) 10.7 1.6-9.1 [facility] CenterLymphocytes #2019-07-22 02:15:00* Test Item Value Reference Range Interpretation Comme [facility] Lymphocytes # (test code = 20368-7) 2.1 0.6-5.4 [facility] HospitalMonocytes #2019-07-22 02:15:00* Test Item Value Reference Range Interpretation Comme nts Monocytes # (test code = 742-7) 1.1 0.2-1.5 [facility] HospitalEosinophils #2019-07-22 02:15:00* Test Item Value Reference Range Interpretation Comme nts Eosinophils # (test code = 711-2) 0.2 0.0-0.9 [facility] CenterBasophils #2019-07-22 02:15:00* Test Item Value Reference Range Interpretation Comme nts Basophils # (test code = 58310-5) 0.0 0.0-0.2 [facility] CenterManual Cbnvjabsztmj0019-52-29 02:15:00* Test Item Value Reference Range Interpretation Comme nts Manual Differential (test co de = Manual Differential) NO [facility] Hospitalodium Ayspb4008-58-78 02:15:00* Test Item Value Reference Range Interpretation Comme nts Sodium Level (test code = 2951-2) 136 135-144 [facility] CenterPotassium Vsyrj6425-61-46 02:15:00* Test Item Value Reference Range Interpretation Comme [facility] Potassium Level (test code = 2823-3) 3.8 3.5-5.1 [facility] CenterChloride Jhrnn3457-60-50 02:15:00* Test Item Value Reference Range Interpretation Comme [facility] Chloride Level (test code = 2075-0) 105 101-111 [facility] CenterCarbon Dioxide Cugsj7043-33-69 02:15:00* Test Item Value Reference Range Interpretation Comme [facility] Carbon Dioxide Level (test c ode = 2028-9) 25 22-32 [facility] CenterAnion Zyy0159-03-19 02:15:00* Test Item Value Reference Range Interpretation Comme [facility] Anion Gap (test code = 65548-7) 9.8 10-20 [facility] CenterGlucose Larwl6467-17-80 02:15:00* Test Item Value Reference Range Interpretation Comme [facility] Glucose Level (test code = 2345-7) 159 65-99 Prediabetes 100 to 125 mg/dlDiabetes 126 mg/dl or higher Prediabetes refers to individuals with plasma glucose levelsintermediate between those considered normal and thoseconsidered diabetic and is also referred to as impairedglucose tolerance (IGT) or impaired fasting glucose (IFG). [facility] CenterBlood Urea Kxeoqaeh8311-52-46 02:15:00* Test Item Value Reference Range Interpretation Comme [facility] Blood Urea Nitrogen (test co de = 3094-0) 20 8-26 [facility] CenterCreatinine2020-02-12 02:15:00* Test Item Value Reference Range Interpretation Comme [facility] Creatinine (test code = 2160-0) 1.1 0.44-1.00 [facility] CenterEGFR Fzae1377-08-35 02:15:00* Test Item Value Reference Range Interpretation Comme nts EGFR Note (test code = 13285-7) 63.3 63.8-143.2 eGFR (Estimated Glomerular Filtration Rate) eGFR calculation value obtained using the [facility] Medical CenterQuadratic (MCQ) equation. The reportable reference range isrecommended to be greater than 60 ml/min/1.73m. This is anestimation of the patient's GFR and clinical correlation isrecommended. This eGFR calculation does not account for race. This resultmay differ from other equations available. [facility] CenterCalcium Qwiwm4773-69-38 02:15:00* Test Item Value Reference Range Interpretation Comme [facility] Calcium Level (test code = 66917-5) 9.0 8.9-10.3 [facility] CenterAlbumin2020-02-12 02:15:00* Test Item Value Reference Range Interpretation Comme [facility] Albumin (test code = 1751-7) 4.2 3.5-5.0 [facility] CenterTotal Ruxykabec3719-54-45 02:15:00* Test Item Value Reference Range Interpretation Comme [facility] Total Bilirubin (test code = 1975-2) 0.2 0.2-1.2 [facility] CenterAlkaline Kwmcdeypfzh8830-64-27 02:15:00* Test Item Value Reference Range Interpretation Comme [facility] Alkaline Phosphatase (test c ode = 6768-6) 70 32-91 [facility] CenterTotal Ijeunft1682-31-09 02:15:00* Test Item Value Reference Range Interpretation Comme [facility] Total Protein (test code = 2885-2) 7.8 6.5-8.1 [facility] CenterAlanine Aminotransferase (ALT/SGPT)2019-07-22 02:15:00* Test Item Value Reference Range Interpretation Comme [facility] Alanine Aminotransferase (AL T/SGPT) (test code = 1742-6) 38 7-55 [facility] CenterAspartate Amino Transf (AST/SGOT)2019-07-22 02:15:00 * Test Item Value Reference Range Interpretation Comme nts Aspartate Amino Transf (AST/ SGOT) (test code = 1920-8) 43 15-41 [facility] CenterGlobulin2020-02-12 02:15:00* Test Item Value Reference Range Interpretation Comme [facility] Globulin (test code = 70705-4) 3.6 2.3-3.5 [facility] CenterAlbumin/Globulin Nvyvf1842-55-74 02:15:00* Test Item Value Reference Range Interpretation Comme [facility] Albumin/Globulin Ratio (test code = 1759-0) 1.2 1.2-2.2 [facility] CenterCreatine Lrykyd0697-52-29 02:15:00* Test Item Value Reference Range Interpretation Comme [facility] Creatine Kinase (test code = 2157-6) 43 38-234 [facility] CenterCreatine Kinase [id number] 02:15:00* Test Item Value Reference Range Interpretation Comme [facility] Creatine Kinase MB (test cod e = 23743-9) 1.15 0.6-6.3 [facility] CenterMyoglobin2020-02-12 02:15:00* Test Item Value Reference Range Interpretation Comme [facility] Myoglobin (test code = 2639-3) 23 14.3-65.8 [facility] CenterB-Type Natriuretic Ruvgcdd7053-94-72 02:15:00* Test Item Value Reference Range Interpretation Comme [facility] B-Type Natriuretic Peptide ( test code = 23741-1) 365 0-100 [facility] CenterMagnesium Viqsb2929-18-42 02:07:00* Test Item Value Reference Range Interpretation Comme [facility] Magnesium Level (test code = 86415-4) 2.0 1.8-2.5 [facility] CenterCreatine Kinase [id number] 01:47:00* Test Item Value Reference Range Interpretation Comme [facility] Creatine Kinase MB (test cod e = 00737-4) 1.01 0.6-6.3 [facility] CenterTroponin [id number] 01:47:00* Test Item Value Reference Range Interpretation Comme [facility] Troponin I (test code = 22516-0) 0.02 0.00-0.03 Troponin I-Interpretation Reference : <0.03 [...] Serial sampli ng is critical for accurate diagnosis.[facility] CenterMyoglobin 2018-07-05 01:47:00* Test Item Value Reference Range Interpretation Comme nts Myoglobin (test code = 00275-5) 22 14.3-65.8 [facility] CenterB-Type Natriuretic Bbleuyk1466-10-07 01:43:00* Test Item Value Reference Range Interpretation Comme nts B-Type Natriuretic Peptide ( test code = B-Type Natriuretic Peptide) 427 0-100 H [facility] CenterUrine [id number] 01:40:00* Test Item Value Reference Range Interpretation Comme nts Urine RBC (test code = 11346-6) 3-5 0-[address] [facility] [id number] 01:40:00* Test Item Value Reference Range Interpretation Comme nts Urine WBC (test code = 5821-4) 0-2 0-2 [facility] CenterUrine Epithelial Halid2650-62-79 01:40:00* Test Item Value Reference Range Interpretation Comme nts Urine Epithelial Cells (test code = 87990-0) 0-2 0-2 [facility] CenterUrine Qikogaoy9487-56-79 01:40:00* Test Item Value Reference Range Interpretation Comme nts Urine Bacteria (test code = 13333-6) NEGATIVE NEG [facility] CenterBlood Urea Nalhdvsg4058-24-77 01:37:00* Test Item Value Reference Range Interpretation Comme [facility] Blood Urea Nitrogen (test co de = 3094-0) 22 8-26 [facility] CenterCreatinine2019-01-26 01:37:00* Test Item Value Reference Range Interpretation Comme nts Creatinine (test code = 2160-0) 0.9 0.44-1.00 [facility] CenterEGFR Bzvt4243-93-61 01:37:00* Test Item Value Reference Range Interpretation Comme nts EGFR Note (test code = 15979-1) 77.7 63.8-143.2 eGFR (Estimated Glomerular Filtration Rate) eGFR calculation value obtained using the [facility] Medical CenterQuadratic (Q) equation. The reportable reference range isrecommended to be greater than 60 ml/min/1.73m. This is anestimation of the patient's GFR and clinical correlation isrecommended. This eGFR calculation does not account for race. This resultmay differ from other equations available. [facility] CenterAlbumin2019-01-26 01:37:00* Test Item Value Reference Range Interpretation Comme [facility] Albumin (test code = 1751-7) 4.3 3.5-5.0 [facility] CenterTotal Hiraycxso5882-35-24 01:37:00* Test Item Value Reference Range Interpretation Comme [facility] Total Bilirubin (test code = 1975-2) 0.2 0.2-1.2 [facility] CenterAlkaline Hbqohnqrdta1368-88-25 01:37:00* Test Item Value Reference Range Interpretation Comme [facility] Alkaline Phosphatase (test c ode = 6768-6) 61 32-91 [facility] CenterTotal Kewltvj4210-27-97 01:37:00* Test Item Value Reference Range Interpretation Comme [facility] Total Protein (test code = 2885-2) 7.7 6.5-8.1 [facility] CenterAlanine Aminotransferase (ALT/SGPT)2018-07-05 01:37:00* Test Item Value Reference Range Interpretation Comme [facility] Alanine Aminotransferase (AL T/SGPT) (test code = 1742-6) 39 7-55 [facility] CenterAspartate Amino Transf (AST/SGOT)2018-07-05 01:37:00 * Test Item Value Reference Range Interpretation Comme [facility] Aspartate Amino Transf (AST/ SGOT) (test code = 1920-8) 36 15-41 [facility] CenterGlobulin2019-01-26 01:37:00* Test Item Value Reference Range Interpretation Comme nts Globulin (test code = 57294-6) 3.4 2.3-3.5 [facility] CenterAlbumin/Globulin Kexbs9562-64-58 01:37:00* Test Item Value Reference Range Interpretation Comme nts Albumin/Globulin Ratio (test code = 1759-0) 1.3 1.2-2.2 [facility] CenterCreatine Jfylba8382-82-48 01:37:00* Test Item Value Reference Range Interpretation Comme nts Creatine Kinase (test code = 2157-6) 43 38-[address] [facility] Ejpls3477-62-33 01:37:00* Test Item Value Reference Range Interpretation Comme nts Urine Color (test code = 5778-6) YELLOW YELLOW [facility] Uetatuqboy6843-24-40 01:37:00* Test Item Value Reference Range Interpretation Comme nts Urine Appearance (test code = 5767-9) CLEAR CLEAR [facility] Fubmrqi7011-92-22 01:37:00* Test Item Value Reference Range Interpretation Comme nts Urine Glucose (test code = 5792-7) NEGATIVE NEGATIVE [facility] Wyravhtff9470-19-97 01:37:00* Test Item Value Reference Range Interpretation Comme nts Urine Bilirubin (test code = 1978-6) NEGATIVE NEGATIVE [facility] Gjfefgp6528-66-90 01:37:00* Test Item Value Reference Range Interpretation Comme nts Urine Ketones (test code = 5797-6) NEGATIVE NEGATIVE [facility] Specific Rynhbgi7532-24-70 01:37:00* Test Item Value Reference Range Interpretation Comme nts Urine Specific [place] (test code = 2965-2) 1.010 1.002-1.[address] [facility] Ukiys9843-30-72 01:37:00* Test Item Value Reference Range Interpretation Comme nts Urine Blood (test code = 71337-6) SMALL NEGATIVE A [facility] dP4100-03-60 01:37:00* Test Item Value Reference Range Interpretation Comme nts Urine pH (test code = 5803-2) 6.0 4.5-8.[address] [facility] Tybsecf7810-50-93 01:37:00* Test Item Value Reference Range Interpretation Comme [facility] Urine Protein (test code = 2888-6) NEGATIVE NEGATIVE [facility] Fdqxnrekciig1624-13-50 01:37:00* Test Item Value Reference Range Interpretation Comme [facility] Urine Urobilinogen (test cod e = 13813-2) 0.2 >0.[address] [facility] Envsguj8261-76-69 01:37:00* Test Item Value Reference Range Interpretation Comme [facility] Urine Nitrite (test code = 5802-4) NEGATIVE NEGATIVE [facility] Leukocyte Nrjbnfql2391-76-62 01:37:00* Test Item Value Reference Range Interpretation Comme [facility] Urine Leukocyte Esterase (te st code = 5799-2) NEGATIVE NEGATIVE [facility] Microscopic Oesfqqkdi6721-04-65 01:37:00* Test Item Value Reference Range Interpretation Comme [facility] Urine Microscopic Indicated (test code = Urine Microscopic Indicated) YES NO [facility] CenterProthrombin Srvc3814-31-34 01:30:00* Test Item Value Reference Range Interpretation Comme [facility] Prothrombin Time (test code = 5964-2) 14.3 10.0-12.9 H [facility] CenterINR International Normalized Opvbt0284-73-59 01:30:00* Test Item Value Reference Range Interpretation Comme [facility] INR International Normalized Ratio (test code [...] Thrombosis and Antiphospholipid syndrome Prevention of recurrent [place] Sixth ACCP Consensus Conference on Antithrombotic Therapy,Chest 2001; 119:Supplement 8-21.[facility] CenterActivated Partial Thromboplast Hzlb0260-08-49 01:30:00* Test Item Value Reference Range Interpretation Comme [facility] Activated Partial Thrombopla st Time (test code = 3173-2) 44.3 25.1-36.[address] [facility] Hospitalodium Ghdbx6463-96-70 01:29:00* Test Item Value Reference Range Interpretation Comme nts Sodium Level (test code = 2951-2) 139 135-144 [facility] CenterPotassium Tfpat3559-41-37 01:29:00* Test Item Value Reference Range Interpretation Comme nts Potassium Level (test code = 2823-3) 3.1 3.5-5.1 L [facility] CenterChloride Dqtqv5740-43-61 01:29:00* Test Item Value Reference Range Interpretation Comme nts Chloride Level (test code = 2075-0) 104 101-111 [facility] CenterCarbon Dioxide Hcxre4596-31-51 01:29:00* Test Item Value Reference Range Interpretation Comme nts Carbon Dioxide Level (test c ode = 2028-9) 29 22-32 [facility] CenterAnion Yhi7183-90-06 01:29:00* Test Item Value Reference Range Interpretation Comme [facility] Anion Gap (test code = 02401-3) 9.1 10-20 L [facility] CenterGlucose Smsdp6340-35-50 01:29:00* Test Item Value Reference Range Interpretation Comme nts Glucose Level (test code = 2345-7) 117 65-99 H Prediabetes 100 to 125 mg/dlDiabetes 126 mg/dl or higher Prediabetes refers to individuals with plasma glucose levelsintermediate between those considered normal and thoseconsidered diabetic and is also referred to as impairedglucose tolerance (IGT) or impaired fasting glucose (IFG). [facility] CenterCalcium Cddsd1760-65-99 01:29:00* Test Item Value Reference Range Interpretation Comme nts Calcium Level (test code = 54440-5) 9.2 8.9-10.3 [facility] Blood Xrvkj2153-90-95 01:20:00* Test Item Value Reference Range Interpretation Comme nts White Blood Count (test code = 6690-2) 12.3 4.8-10.8 H [facility] [facility] [id number] 01:20:00* Test Item Value Reference Range Interpretation Comme nts Red Blood Count (test code = 789-8) 3.93 3.70-5.40 [facility]emoglobin2019-01[facility] 01:20:00* Test Item Value Reference Range Interpretation Comme nts Hemoglobin (test code = 718-7) 12.6 12.0-16.0 [facility] CenterHematocrit2019-01-26 01:20:00* Test Item Value Reference Range Interpretation Comme nts Hematocrit (test code = 53836-7) 36.3 37.0-47.0 L [facility] Corpuscular [id number] 01:20:00* Test Item Value Reference Range Interpretation Comme nts Mean Corpuscular Volume (mundo t code = 67374-3) 92.3 80.0-100.0 [facility] Corpuscular [id number] 01:20:00* Test Item Value Reference Range Interpretation Comme nts Mean Corpuscular Hemoglobin (test code = 785-6) 32.2 27.0-31.0 H [facility] Corpuscular Hgb Concent [id number] 01:20:00 * Test Item Value Reference Range Interpretation Comme nts Mean Corpuscular Hgb Concent Diff (test code = 786-4) 34.8 32.0-36.0 [facility] CenterRed Cell Distribution [id number] 01:20:00* Test Item Value Reference Range Interpretation Comme nts Red Cell Distribution Width (test code = 788-0) 13.0 11.5-14.5 [facility] CenterPlatelet [id number] 01:20:00* Test Item Value Reference Range Interpretation Comme nts Platelet Count (test code = 777-3) 235 130-400 [facility] Platelet [id number] 01:20:00* Test Item Value Reference Range Interpretation Comme nts Mean Platelet Volume (test c ode = 94101-6) 7.6 [facility] CenterGranulocytes (%)2018-07-05 01:20:00* Test Item Value Reference Range Interpretation Comme nts Granulocytes (%) (test code = 90199-3) 74.2 50.0-75. 0 [facility] CenterLymphocytes %2018-07-05 01:20:00* Test Item Value Reference Range Interpretation Comme nts Lymphocytes % (test code = 736-9) 14.8 20.0-40.0 L [facility] HospitalMonocytes %2018-07-05 01:20:00* Test Item Value Reference Range Interpretation Comme nts Monocytes % (test code = 5905-5) 8.7 0.0-15.0 [facility] CenterEosinophils %2018-07-05 01:20:00* Test Item Value Reference Range Interpretation Comme nts Eosinophils % (test code = 713-8) 1.9 0.0-10.0 [facility] CenterBasophils %2018-07-05 01:20:00* Test Item Value Reference Range Interpretation Comme nts Basophils % (test code = 25279-5) 0.4 0.0-2.0 [facility] CenterGranulocytes #2018-07-05 01:20:00* Test Item Value Reference Range Interpretation Comme nts Granulocytes # (test code = 34929-4) 9.1 1.8-6.4 H [facility] CenterLymphocytes #2018-07-05 01:20:00* Test Item Value Reference Range Interpretation Comme nts Lymphocytes # (test code = 10268-4) 1.8 1.2-3.6 [facility] CenterMonocytes #2018-07-05 01:20:00* Test Item Value Reference Range Interpretation Comme nts Monocytes # (test code = 742-7) 1.1 0.3-0.9 H [facility] CenterEosinophils #2018-07-05 01:20:00* Test Item Value Reference Range Interpretation Comme nts Eosinophils # (test code = 711-2) 0.2 0.0-0.5 [facility] CenterBasophils #2018-07-05 01:20:00* Test Item Value Reference Range Interpretation Comme nts Basophils # (test code = 13397-8) 0.1 0.0-0.2 [facility] CenterManual [id number] 01:20:00* Test Item Value Reference Range Interpretation Comme nts Manual Differential (test co de = Manual Differential) NO [facility] History and Physical Notes Date/Time Note Provider Source 2024-05-15 13:20:00 New Medication Vitamin D deficiency - ergocalciferol, vitamin d2, 1,250 mcg (50,000 unit) capsule; Take 1 capsule by mouth weekly. Dispense: 26 capsule; Refill: 1 - calcium carbonate 500 mg calcium (1,250 mg) tablet; Take 1 tablet by mouth in the morning. Dispense: 90 tablet; Refill: 3 [facility] 2022-04-18 13:33:00 Summary: MRI SAFETY ALERT // PACEMAKER IMPLANTED // [facility] (MR UNSAFE) THIS PATIENT HAS AN IMPLANTED PACEMAKER SYSTEM THAT IS MR UNSAFE (PER THE STEAM FRAME OPERATOR [facility]/BREEN: [phone]) [facility]
[2024-05-27 20:32] LABS: PT Prothrombin Time 16.7 SECONDS (9.4-12.5); PTT, Activated Partial Thromb 40.3 SECONDS (24.3-36.9); Protime INR 1.51
--- NOTE | 2024-05-27 20:35 | RAD REPORT ---
EXAMINATION: ONE VIEW CHEST XR CLINICAL INDICATION: Female, 88 years old.,Congestion;Cough TECHNIQUE: Frontal chest projection is submitted. Examination is limited by patient positioning and t echnique. COMPARISON: 07/13/2023 FINDINGS: The lungs are well inflated with hyperlucency suggesting COPD. Nodular left mid to lower lung opaciti es superimposed on the left cardiac border.. No pneumothorax or sizable effusion. The heart is upper limit of normal in size. Mediastinal contours are unremarkable. Left chest wall pacer in place. IMPRESSION: Findings suggesting COPD. Nodular left mid to lower lung opacity, could relate to focal airspace disease or a small mass. Follo w-up CT chest following resolution of any acute symptoms may be helpful to ensure resolution.
[2024-05-27 20:36] LABS: Absolute Lymphocytes (CBC) 0.8 K/uL (0.7-4.9); Absolute Monocytes 1.3 K/uL (0.1-1.3); Absolute Neutrophil 7.5 K/uL (1.8-8.0); Basophils % 0.1 % (0-1.3); Eosinophils % 0.1 % (0-4.4); Hematocrit 32.2 % (36.0-45.0); Hemoglobin 10.8 g/dL (12.0-15.0); MCH 32.5 pg (27.0-35.0); MCHC 33.7 g/dL (32.0-36.0); MCV 96.7 fL (80-100); MPV 7.8 fL (7.6-11.3); Monocytes % 13.7 % (3.3-12.3); Neutrophils % 78.1 % (41.7-73.7); Nucleated Red Blood Cells % 0.2 % (0-0); Platelets 221 thou/uL (152-406); RBC Red Blood Cell Count 3.33 M/uL (3.86-4.86); Red Cell Distribution Width 12.9 % (12.1-15.2)
[2024-05-27 20:47] LABS: AST/SGOT 26 U/L (15-37); Albumin 2.7 g/dL (3.4-5.0); Albumin/Globulin Ratio 0.5 (1.1-1.8); Alkaline Phosphatase 43 U/L (45-117); Anion Gap 14.5 mEq/L (5.0-15.0); BUN Blood Urea Nitrogen 59 mg/dL (7-18); Bicarbonate 26 mEq/L (21-32); Bilirubin Total 0.5 mg/dL (0.2-1.0); Globulin 5.2 g/dL (2.3-3.5); Glomerular Filtration Rate 38 ml/min (=/>90); Glucose Level 112 mg/dL (74-106); NT PRO-BNP 11653 pg/mL (<450); Potassium 3.5 mEq/L (3.5-5.1); Protein, Total 7.9 g/dL (6.4-8.2); Sodium Level 138 mEq/L (136-145); Troponin High Sensitivity 57.3 pg/mL (<58.9)
[2024-05-27 21:13] LABS: ALT/SGPT < 14 U/L (13-56)
[2024-05-27] MEDS ORDERED: LEVALBUTEROL 1.25 MG/3 ML NEB ONE (21:39)
--- NOTE | 2024-05-27 22:39 | RAD REPORT ---
EXAMINATION: CT Thorax Wo Con CLINICAL INDICATION: Female, 88 years old. [facility] MAIN Cough;Congestion Bed Name: 8 Y TECHNIQUE: Axial CT scan of the chest without intravenous contrast. Multiplanar reformats were genera suresh and reviewed. One or more of the following dose reduction techniques were used: Automated exposure control, adjustment of the mA and/or kV according patient size, and/or iterative reconstruct ion. Unless otherwise specified, incidental findings do not require dedicated imaging follow-up. COMPARISON: Chest radiograph of earlier the same day FINDINGS: LOWER NECK: Visualized thyroid gland and soft tissues are normal. LUNGS: Patchy bilateral basal predominant airspace opacities, with areas of distal bronchial opacific ation, and tree-in-bud nodularity. The findings are most pronounced in the left lingula. Wedge-shaped opacity at the right apex is also seen, may reflect atelectasis or scarring. No other wo rrisome nodules. PLEURA: No pleural effusion. No pneumothorax. . MEDIASTINUM AND LYMPH NODES: Mild cardiomegaly. No mediastinal mass or fluid collection. Normal size mediastinal, hilar, and axillary lymph nodes. OSSEOUS STRUCTURES AND CHEST WALL: Intact. UPPER ABDOMEN: No significant abnormalities. Status post cholecystectomy. IMPRESSION: Multifocal basal predominant airspace opacities as above, most suggestive of multifocal pneumonia. A follow-up CT of the chest is recommended to ensure complete resolution of the nodular opacities. Mild cardiomegaly.
--- NOTE | 2024-05-27 23:38 | ER ---
Nurse's Notes [facility] Name: Sirena Purdy Age: 88 yrs Sex: Female : 1935 Arrival Date: 05/27/2024 Time: 19:07 Bed 8 Private MD: Diagnosis: Pneumonia, unspecified organism Presentation: 05/27 19:25 Chief complaint: Patient states: Pt came in, accompanied by her daughter. The daughter kd3 reports being her caregiver and states that her and her mother have both been ill for the past 7 to 8 days with the flu. Initially, they were seeing improvement but now feel like they are both getting worse again with runny nose, general malaise and body aches. PT reportedly also has worsening swelling in the legs. 19:25 Coronavirus screen: Vaccine status: Patient reports being unvaccinated. Ebola Screen: kd3 No symptoms or risks identified at this time. Initial Sepsis Screen: Does the patient meet any 2 criteria? No. Patient's initial sepsis screen is negative. Does the patient have a suspected source of infection? No. Patient's initial sepsis screen is negative. Risk Assessment: Do you want to hurt yourself or someone else?. Onset of symptoms was May 27, 2024. 19:25 Method Of Arrival: Wheelchair kd3 19:25 Acuity: OSMAN 3 kd3 Triage Assessment: 19:45 General: Appears ill, Behavior is calm, cooperative. Pain: Complains of pain in general kd3 body aches. Historical: - Allergies: 19:45 atorvastatin; kd3 19:45 Ceftin; kd3 19:45 Cymbalta; kd3 19:45 Levaquin; kd3 19:45 Linzess; kd3 19:45 Lyrica; kd3 19:45 Xarelto; kd3 19:45 Quinidine Sulfate; kd3 19:45 Coumadin; kd3 - PMHx: 19:45 Atrial fibrillation; Hypertension; kd3 - PSHx: 19:45 CABG x 2; hysterectomy; hysterectomy; neck; neck; pacemaker; Cholecystectomy; kd3 - Immunization history:: Adult Immunizations up to date. - Infectious Disease History:: Denies. - Social history:: Smoking status: unknown. Screenin:53 [facility] ED Fall Risk Assessment (Adult) History of falling in the last 3 months, tm6 including since admission No falls in past 3 months (0 pts) Confusion or Disorientation No (0 pts) Intoxicated or Sedated No (0 pts) Impaired Gait Yes (1 pt) Mobility Assist Device Used Yes (1 pt) Altered Elimination No (0 pt) Score/Fall Risk Level 0 - 2 = Low Risk Oriented to surroundings, Maintained a safe environment, Educated pt \T\ family on fall prevention, incl call for assistance when getting out of bed. Abuse screen: Denies threats or abuse. Denies injuries from another. Nutritional screening: No deficits noted. Tuberculosis screening: No symptoms or risk factors identified. Assessment: 19:53 General: Appears in no apparent distress. ill, Behavior is calm, cooperative. Pain: tm6 Complains of pain in body aches. Neuro: Level of Consciousness is awake, alert, obeys commands, Oriented to person, place, time, situation. Cardiovascular: Reports shortness of breath, Patient's skin is warm and dry. Respiratory: Reports shortness of breath Airway is patent Respiratory effort is even, Respiratory pattern is regular. GI: No signs and/or symptoms were reported involving the gastrointestinal system. Abdomen is flat, non-distended. : No signs and/or symptoms were reported regarding the genitourinary system. EENT: No signs and/or symptoms were reported regarding the EENT system. Derm: No signs and/or symptoms reported regarding the dermatologic system. Musculoskeletal: Reports body aches and general weakness. 21:24 Reassessment: Patient and/or family updated on plan of care and expected duration. Pain tm6 level reassessed. Patient is alert, oriented x 3, equal unlabored respirations, skin warm/dry/pink. 05/28 01:27 General: Pt's POA and construction scheduler ( Jennie Purdy) contact # cell [phone] and home # ay [phone]. 07:15 Reassessment: REPORT TO ALFREDA PAUL. dd2 Vital Signs: 05/27 19:25 BP 129 / 47; Pulse 69; Resp 17; Temp 97.8(O); Pulse Ox 94% on R/A; kd3 20:18 BP 109 / 75; Pulse 72; Resp 18; Pulse Ox 98% on 1 lpm NC; dd2 21:24 BP 105 / 56; Pulse 71; Pulse Ox 98% on 1 lpm NC; MAP 72 mmHg; tm6 22:33 BP 116 / 87; Pulse 70 MON; Resp 19; Pulse Ox 98% on 1 lpm NC; dd2 05/28 00:37 BP 109 / 57; Pulse 73; Resp 19; Temp 98.4(O); Pulse Ox 98% on 1 lpm NC; dd2 ED Course: 05/27 19:13 Patient arrived in ED. im 19:13 Alyce Elam FNP-C [facility] kb 19:13 Poonam Amado MD is Attending Physician. kb 19:41 JENNIE CROSS, ALFREDA is Primary Nurse. dd2 19:45 Triage completed. kd3 19:45 Arm band placed on right wrist. kd3 19:53 Patient has correct armband on for positive identification. Bed in low position. Call tm6 light in reach. Side rails up X2. Provided Education on: use of call viera. Client placed on continuous cardiac and pulse oximetry monitoring. NIBP monitoring applied. school lunch monitor on. Pulse ox on. NIBP on. Door closed. Noise minimized. Warm blanket given. Pillow given. 20:09 Initial lab(s) drawn, by me, sent to lab. First set of blood cultures drawn by me, EKG dd2 done, by ED staff, reviewed by Alyce WASHBURN. Oxygen administration via nasal cannula \T\ 1L/min. 20:17 Troponin High Sensitivity Sent. dd2 20:17 BNP Sent. dd2 20:18 Blood Culture Adult (2) Sent. dd2 20:18 CBC with Diff Sent. dd2 20:18 CMP Sent. dd2 20:18 Lactate w/ 2H reflex if indic. Sent. dd2 20:18 Protime (+inr) Sent. dd2 20:18 Ptt, Activated Sent. dd2 20:18 No provider procedures requiring assistance completed. Inserted saline lock: 22 gauge dd2 in right antecubital area, using aseptic technique. Blood collected. Flushed with 10 mL NS. 20:22 Second set of blood cultures drawn. dd2 20:28 Chest Single View XRAY In Process Unspecified. EDMS 22:01 CT Chest Wo Con In Process Unspecified. EDMS 23:37 Prince Wiseman MD is Hospitalizing Provider. kb 05/28 00:37 Patient admitted, IV remains in place. dd2 Administered Medications: 12/18 21:46 Drug: Levalbuterol Inhalation 1.25 mg Inhalation once Route: Inhalation; dd2 22:16 Follow up: Response: No adverse reaction dd2 23:55 Drug: Zithromax IVPB 500 mg IVPB once over 1 hrs; mix in 250 mL NS Route: IVPB; Infused ay Over: 1 hrs; Site: right antecubital; 05/28 00:10 Follow up: Response: No adverse reaction dd2 00:55 Follow up: IV Status: Completed infusion; IV Intake: 250ml dd2 Medication: 05/27 19:53 VIS not applicable for this client. tm6 Intake: 05/28 00:55 IV: 250ml; Total: 250ml. dd2 Outcome: 05/27 23:37 Decision to Hospitalize by Provider. kb 05/28 00:37 Admitted to ER Hold. [facility] dd2 Condition: stable Discharge instructions given to patient, family, Instructed on the need for admit, Demonstrated understanding of instructions, 10:14 Patient left the ED. ll1 Signatures: Dispatcher [employer] EDMS Alyce Elam, HAIR AND MAKEUP DESIGNER-C HAIR AND MAKEUP DESIGNER-Corina Duran RN RN ll1 Zenaida Ríos RN RN kd3 Sera Haynes Tawney, RN RN tm6 JENNIE CROSS RN RN dd2 Annie Major RN RN ay Corrections: (The following items were deleted from the chart) 05/27 21:24 21:24 BP 105 / 56; Pulse 71bpm; Pulse Ox 98% 2 lpm Nasal Cannula; MAP 72 mmHg; tm6 tm6 05/28 01:32 01:27 General: Pt's POA and construction scheduler contact # cell [phone] and home # ay [phone]. ay
--- NOTE | 2024-05-27 23:38 | EDPHYS ---
Physician Documentation [facility] Name: Sirena Purdy Age: 88 yrs Sex: Female : 1935 Arrival Date: 05/27/2024 Time: 19:07 Bed 8 Private MD: ED Physician Poonam Amado HPI: 05/27 19:19 This 88 yrs old Female presents to ER via Unassigned with complaints of Flu Symptoms. kb 19:19 Pt is an 88 year old female who presents for cough, fever, chills, bodyaches, runny kb nose, headache, lower extremity swelling that started 8 days ago. Tested positive for flu A 8 days ago with home test. Daughter states pt's symptoms aren't improving. . Historical: - Allergies: 19:45 atorvastatin; kd3 19:45 Ceftin; kd3 19:45 Cymbalta; kd3 19:45 Levaquin; kd3 19:45 Linzess; kd3 19:45 Lyrica; kd3 19:45 Xarelto; kd3 19:45 Quinidine Sulfate; kd3 19:45 Coumadin; kd3 - PMHx: 19:45 Atrial fibrillation; Hypertension; kd3 - PSHx: 19:45 CABG x 2; hysterectomy; hysterectomy; neck; neck; pacemaker; Cholecystectomy; kd3 - Immunization history:: Adult Immunizations up to date. - Infectious Disease History:: Denies. - Social history:: Smoking status: unknown. ROS: 21:23 Constitutional: As per HPI kb Exam: 21:22 Constitutional: This is a well developed, well nourished patient who is awake, alert, kb and in no acute distress. Head/Face: Normocephalic, atraumatic. ENT: Moist Mucous membranes Cardiovascular: Regular rate Abdomen/GI: Soft, non-tender. No distention Skin: Warm, dry with normal turgor. Normal color. MS/ Extremity: Pulses equal, no cyanosis. Neurovascular intact. Full, normal range of motion. Neuro: Awake and alert, GCS 15, oriented to person, place, time, and situation. 21:22 ECG was reviewed by the Attending Physician. 21:23 Respiratory: the patient does not display signs of respiratory distress, Respirations: kb normal, Breath sounds: rhonchi, that are mild, that are moderate, are scattered, Vital Signs: 19:25 BP 129 / 47; Pulse 69; Resp 17; Temp 97.8(O); Pulse Ox 94% on R/A; kd3 20:18 BP 109 / 75; Pulse 72; Resp 18; Pulse Ox 98% on 1 lpm NC; dd2 21:24 BP 105 / 56; Pulse 71; Pulse Ox 98% on 1 lpm NC; MAP 72 mmHg; tm6 22:33 BP 116 / 87; Pulse 70 MON; Resp 19; Pulse Ox 98% on 1 lpm NC; dd2 05/28 00:37 BP 109 / 57; Pulse 73; Resp 19; Temp 98.4(O); Pulse Ox 98% on 1 lpm NC; dd2 MDM: 05/27 19:13 Medical Screening Exam initiated kb 23:36 Differential diagnosis: bronchitis, flu, pneumonia. Data reviewed: vital signs, nurses kb notes. Consideration of Admission/Observation Patient was admitted/placed on observation. Escalation of care including admission/observation considered. Historians other than the Patient: Daughter/Son: daughter. Counseling: I had a detailed discussion with the patient and/or guardian regarding the historical points, exam findings, and any diagnostic results supporting the discharge/admit diagnosis, lab results, radiology results, the need for further work-up and treatment in the hospital. 23:39 Management of patient was discussed with the following: Hospitalist: Dr Wiseman accepts kb pt for admission. 05/27 19:40 Order name: Blood Culture Adult (2) kb 05/27 19:40 Order name: CBC with Diff; Complete Time: 20:43 kb 05/27 19:40 Order name: CMP; Complete Time: 21:35 kb 05/27 19:40 Order name: Lactate w/ 2H reflex if indic.; Complete Time: 21:35 kb 05/27 19:40 Order name: Protime (+inr); Complete Time: 20:34 kb 05/27 19:40 Order name: Ptt, Activated; Complete Time: 20:34 kb 05/27 19:40 Order name: BNP; Complete Time: 21:35 kb 05/27 19:40 Order name: Troponin High Sensitivity; Complete Time: 21:35 kb 05/28 00:05 Order name: Urinalysis w/ reflexes EDMS 05/28 06:35 Order name: CBC with Automated Diff EDMS 05/28 06:35 Order name: Basic Metabolic Panel EDMS 05/28 06:35 Order name: NT PRO-BNP EDMS 05/28 08:22 Order name: Glucose, Ancillary Testing EDMS 05/27 19:40 Order name: Chest Single View XRAY; Complete Time: 20:38 kb 05/27 21:35 Order name: CT Chest Wo Con; Complete Time: 22:40 kb 05/28 00:24 Order name: Echo with Doppler EDMS 05/27 19:40 Order name: Cardiac monitoring; Complete Time: 19:59 kb 05/27 19:40 Order name: EKG - Nurse/Tech; Complete Time: 19:59 kb 05/27 19:40 Order name: IV Saline Lock - Large Bore; Complete Time: 20:17 kb 05/27 19:40 Order name: Labs collected and sent; Complete Time: 20:17 kb 05/27 19:40 Order name: O2 Per Protocol; Complete Time: 19:59 kb 05/27 19:40 Order name: O2 Sat Monitoring; Complete Time: 19:59 kb 05/27 19:40 Order name: Vital Signs; Complete Time: 19:59 kb EC:22 Rate is 70 beats/min. QRS interval is normal at 198 msec. QT interval is prolonged at kb 557 msec. Administered Medications: 21:46 Drug: Levalbuterol Inhalation 1.25 mg Inhalation once Route: Inhalation; dd2 22:16 Follow up: Response: No adverse reaction dd2 23:55 Drug: Zithromax IVPB 500 mg IVPB once over 1 hrs; mix in 250 mL NS Route: IVPB; Infused ay Over: 1 hrs; Site: right antecubital; 05/28 00:10 Follow up: Response: No adverse reaction dd2 00:55 Follow up: IV Status: Completed infusion; IV Intake: 250ml dd2 Disposition Summary: 05/27/24 23:37 Hospitalization Ordered Notes: Hospitalization Status: Observation kb Provider: Prince lyn Wiseman Condition: Stable kb Problem: new kb Symptoms: are unchanged kb Bed/Room Type: Standard kb Location: Telemetry/MedSurg (observation)(05/28/24 08:34) ty Room Assignment: 416(05/28/24 08:34) ty Diagnosis - Pneumonia, unspecified organism kb Forms: - Medication Reconciliation Form kb - SBAR form kb - Leadership Thank You Letter kb Signatures: Dispatcher [employer] EDMS Armani Elamistin, CHIEF REVENUE OFFICER-C CHIEF REVENUE OFFICER-Ckb Zenaida Ríos, RN RN kd3 Angela Grant [facility] Brendon Hernandez DIANA RN RN dd2 Annie Major, RN RN ay Corrections: (The following items were deleted from the chart) 05/27 19:40 19:40 BLOOD CULTURE*+BA.LAB.BRZ ordered. EDMS EDMS 19:40 19:40 CBC+H.LAB.BRZ ordered. EDMS EDMS 19:40 19:40 COMPREHENSIVE METABOLIC PANEL+C.LAB.BRZ ordered. EDMS EDMS 19:40 19:40 LACTATE+C.LAB.BRZ ordered. EDMS EDMS 19:40 19:40 PROTIME (+INR)+COAG.LAB.BRZ ordered. EDMS EDMS 19:40 19:40 PTT, ACTIVATED+COAG.LAB.BRZ ordered. EDMS EDMS 19:40 19:40 PROBNP+C.LAB.BRZ ordered. EDMS EDMS 19:40 19:40 Troponin High Sensitivity+C.LAB.BRZ ordered. EDMS EDMS 19:40 19:40 Chest Single View+RAD.RAD.BRZ ordered. EDMS EDMS 05/28 02:52 05/27 23:37 Telemetry/MedSurg (observation) [facility] 05/28 02:52 05/27 23:37 kb [facility] 05/28 08:34 02:52 [facility] ER HOLD [facility] ty 08:34 02:52 HLD1 [facility] ty
[2024-05-27] MEDS ORDERED: NA CHLORIDE 0.9% 250 ML ONE (23:42)
[2024-05-27] MEDS ORDERED: AZITHROMYCIN 500 MG INJ IVPB ONE (23:42)
[2024-05-28] MEDS ORDERED: ACETAMINOPHEN 500 MG TAB PO PRN
[2024-05-28] MEDS: CEFEPIME 1 GM in NA CHLORIDE 0.9% 100 ML IV SCH (00:12)
[2024-05-28] MEDS: FUROSEMIDE 40 MG/4 ML VIAL IV SCH (00:18)
--- NOTE | 2024-05-28 00:19 | P.HP ---
Certification for Inpatient Patient admitted to: Inpatient With expected LOS: >2 Midnights Practitioner: I am a practitioner with admitting privileges, knowledge of patient current condition, hospital course, and medical plan of care. Services: Services provided to patient in accordance with Admission requirements found in Title 42 Section 412.3 of the Code of Federal Regulations Patient History Date of Service: 05/28/24 Reason for admission: respiratory failure History of Present Illness: Patient is a 88-year-old female with a recent history of influenza diagnosed 8 days ago. After a brief improvement, patient started worsening. She developed fever, cough and congestion. She is in the ER accompanied by daughter. A CT chest revealed multifocal pneumonia. Patient is currently on 3 L of oxygen via nasal cannula. She does not use oxygen at baseline. Her past medical history include CHF, COPD, hypertension and hyperlipidemia. She also has a history of chronic atrial fibrillation and she is chronically anticoagulated with Eliquis. On physical exam, patient has bilateral lower extremity edema. No wheezing on lung auscultation. Initial blood work revealed BNP of more than 11,000. Allergies levofloxacin [From Levaquin] Allergy (Verified 07/13/23 05:24) Rash Home Medications: Albuterol Inhaler [Ventolin Inhaler*] 2 puff IH Q6HP PRN 07/13/23 Amlodipine [Norvasc*] 5 mg PO DAILY 07/13/23 Apixaban [Eliquis *] 2.5 mg PO BID 07/13/23 Buspirone HCl 7.5 mg PO BID 07/13/23 Divalproex Sodium 500 mg PO Q12H 07/13/23 Ezetimibe [Zetia*] 10 mg PO DAILY 07/13/23 Famotidine [Pepcid*] 20 mg PO BID 07/13/23 Fexofenadine HCl 60 mg PO BID 07/13/23 Furosemide [Lasix*] 20 mg PO LUNCH 07/13/23 Furosemide [Lasix*] 40 mg PO BREAKFAST 07/13/23 Hydrocodone 10/APAP 325 [[place] 10/325*] 10 mg PO Q6HP PRN 07/13/23 Losartan Potassium 100 mg PO DAILY WITH BREAKFAST 07/13/23 Losartan Potassium [Cozaar*] 50 mg PO BEDTIME 07/13/23 Mv-Min/FA/Vit K/Lutein/Zeaxant [Preservision Areds 2 Plus Mv] 1 cap PO DAILY 07/13/23 Ondansetron [Zofran (Odt)*] 4 mg PO Q6HP PRN 07/13/23 Rivastigmine Tartrate [Rivastigmine] 4.5 mg PO BID 07/13/23 carvediloL [Coreg*] 25 mg PO BID 07/13/23 Ipratropium/Albuterol Sulfate [Iprat-Albut 0.5-3(2.5) mg/3 ml] 3 ml IH Q6H PRN #120 unit 07/15/23 Nebulizer 1 each MC QID #1 ea 07/15/23 predniSONE [Deltasone*] 10 mg PO BID #14 tab 07/15/23 - Past Medical/Surgical History Diabetic: No -: htn -: hld -: cholecystectomy -: open heart sx -: pacemaker - Social History Alcohol use: No CD- Drugs: Yes Caffeine use: No Physical Examination - Physical Exam General: Moderate distress HEENT: Atraumatic, Normocephalic Respiratory: Diminished Cardiovascular: Normal pulses, Regular rate/rhythm, Other (AICD), Edema - Studies Laboratory Data (last 24 hrs) 05/27/24 05/27/24 05/27/24 20:09 20:09 20:09 WBC 9.50 Hgb 10.8 L Hct 32.2 L Plt Count 221 PT 16.7 H INR 1.51 APTT 40.3 H Sodium 138 Potassium 3.5 BUN 59 H Creatinine 1.34 H Glucose 112 H Total Bilirubin 0.5 AST 26 ALT < 14 Alkaline Phosphatase 43 L Assessment and Plan - Problems (Diagnosis) (1) Acute hypoxemic respiratory failure Current Visit: Yes Status: Acute (2) Multifocal pneumonia Current Visit: Yes Status: Acute (3) CHF exacerbation Current Visit: Yes Status: Acute (4) COPD (chronic obstructive pulmonary disease) Current Visit: Yes Status: Acute - Plan Assessment This is a 88-year-old female with a recent history of influenza who is now presenting with respiratory distress. CT chest with multifocal pneumonia. Patient is currently on supplemental oxygen via nasal cannula. Her BNP > 11,0000 Acute hypoxemic respiratory failure Multifocal pneumonia Possible CHF exacerbation COPD Atrial fibrillation Plan: Admit inpatient with telemetry Continue supplemental oxygen via nasal cannula We diuresed the patient Broad-spectrum antibiotics with cefepime and vancomycin Pulmonary medicine consulted for co-management DVT prophylaxis Patient is full code Resume home medications once reconciled - Advance Directives Does patient have a Living Will: No Does patient have a Durable POA for Healthcare: Yes
[2024-05-28] MEDS: ALBUTEROL 2.5 MG/3 ML NEB SOL NEB SCH (01:00)
[2024-05-28] MEDS: IPRATROPIUM BROM 0.5MG/2.5ML NEB SCH (01:00)
[2024-05-28] MEDS: HEPARIN 5000 UNIT/ML 1 ML VIAL SQ SCH (01:00)
[2024-05-28] MEDS ORDERED: HEPARIN 5000 UNIT/ML 1 ML VIAL ONE ×2 (02:04→08:00)
[2024-05-28] MEDS ORDERED: CEFEPIME 1 GM/VIAL ONE (02:05)
[2024-05-28] MEDS ORDERED: NA CHLORIDE 0.9% 100 ML ONE (02:05)
[2024-05-28] MEDS ORDERED: FUROSEMIDE 40 MG/4 ML VIAL ONE ×2 (02:05→08:00)
[2024-05-28] MEDS ORDERED: ACETAMINOPHEN 500 MG TAB ONE (02:06)
[2024-05-28] MEDS: ACETAMINOPHEN 500 MG TAB PO PRN (02:17)
[2024-05-28] MEDS ORDERED: VANCOMYCIN 1 GM/VIAL ONE (05:19)
[2024-05-28] MEDS ORDERED: NA CHLORIDE 0.9% 250 ML ONE (05:19)
[2024-05-28] MEDS: VANCOMYCIN 1 GM in NA CHLORIDE 0.9% 250 ML IVPB ONE (05:30)
[2024-05-28 06:28] LABS: Absolute Lymphocytes (CBC) 0.8 K/uL (0.7-4.9); Absolute Monocytes 0.7 K/uL (0.1-1.3); Hematocrit 30.1 % (36.0-45.0); Hemoglobin 10.1 g/dL (12.0-15.0); Lymphocytes % 9.4 % (15.3-44.8); MCHC 33.5 g/dL (32.0-36.0); MCV 98.6 fL (80-100); MPV 7.7 fL (7.6-11.3); Monocytes % 7.9 % (3.3-12.3); Neutrophils % 82.7 % (41.7-73.7); Platelets 195 thou/uL (152-406); RBC Red Blood Cell Count 3.05 M/uL (3.86-4.86); Red Cell Distribution Width 12.9 % (12.1-15.2)
[2024-05-28 06:35] LABS: Anion Gap 13.8 mEq/L (5.0-15.0); Potassium 3.8 mEq/L (3.5-5.1)
[2024-05-28] MEDS ORDERED: IPRATROPIUM BROM 0.5MG/2.5ML ONE (07:25)
[2024-05-28] MEDS ORDERED: ALBUTEROL 2.5 MG/3 ML NEB SOL ONE (07:25)
[2024-05-28] MEDS ORDERED: HYDROCODONE/APAP 7.5/325 MG TAB ONE (08:39)
[2024-05-28] MEDS: HYDROCODONE/APAP 7.5/325 MG TAB PO PRN (08:46)
--- NOTE | 2024-05-28 09:23 | P.PN ---
Date of Service: 05/28/24 Subjective: feels slightly better compared to initial presentation to ED nothing worse still tired ./ confsedf ROS: 10 point ROS as noted above, otherwise negative Physical Exam: GEN: Alert, orientedx2, NAD CV: Regular rate and rhythm (paced), bilateral lower extremity edema Pulm: Nonlabored respirations on 3L NC, diminished at bases b/l, +cough ABD: soft, nontender, nondistended Integumentary: No rashes Neuro: Normal speech, normal affect Problem List: Multifocal pneumonia Acute on chronic CHF exacerbation (HFpEF 04/2023) Recent Influenza A+ (~1 week ago) Acute hypoxic respiratory failure; multifactorial etiology secondary to above MIRIAN vs CKD Chronic a-fib; on anticoagulation with pacemaker in place COPD, chronic Hx CAD s/p CABG Hypertension Hyperlipdemia Hypothyroidism Multifocal pneumonia Acute on chronic CHF exacerbation (HFpEF 04/2023) Recent Influenza A+ (~1 week ago) Acute hypoxic respiratory failure; multifactorial etiology secondary to above on admission, presents with fever, cough, congestion, lower extremity edema fatigue. Recently diagnosed with Influenza A ~1 week ago. CXR (05/28): COPD, Nodular left mid to lower lung opacity, could relate to focal airspace disease or a small mass. CT chest (05/28): Multifocal basal predominant airspace opacities as above, most suggestive of multifocal pneumonia. Mild cardiomegaly. Wean oxygen as tolerated. Patient doesn't use home oxygen. continue empiric vanc / cefepime (05/28-) afebrile, no leukocytosis Blood cx (05/27): pending Echo ordered to eval EF / stenosis; Prior echo ~1 year ago with 59% EF, normal wall motion. mild MR/TR/PI BNP 11.5k -> 14k (05/28) continue IV lasix BID Dr. Bailon, pulm consulted [place] check UA MIRIAN vs CKD unknown baseline. ~1.1-1.2 back in Jul 2023 continue to monitor renal function On IV lasix 40 mg BID Chronic a-fib; on anticoagulation with pacemaker in place COPD, chronic Hx CAD s/p CABG Hypertension Hyperlipidemia Hypothyroidism confirm home meds, restart as appropriate VTE: heparin sq Code: Full Dispo: Home, ~2-3 days Time Spent Managing Pts Care (In Minutes): 55
--- NOTE | 2024-05-28 12:24 | P.CNS ---
Date of Consult: 05/28/24 Reason for Consult: pneumonia Chief Complaint: respiratory failure History of Present Illness: Patient is 88 years of age diagnosis of flow patient deteriorated with fever cough congestion was brought into the emergency room CT scan showed bilateral pulmonary infiltrates has a history of baseline COPD chronic A-fib currently unresponsive Allergies levofloxacin [From Levaquin] Allergy (Verified 07/13/23 05:24) Rash Home Medications: Albuterol Inhaler [Ventolin Inhaler*] 2 puff IH Q6HP PRN 07/13/23 Amlodipine [Norvasc*] 5 mg PO DAILY 07/13/23 Apixaban [Eliquis *] 2.5 mg PO BID 07/13/23 Buspirone HCl 7.5 mg PO BID 07/13/23 Divalproex Sodium 500 mg PO DAILY 07/13/23 Ezetimibe [Zetia*] 10 mg PO DAILY 07/13/23 Furosemide [Lasix*] 20 mg PO DAILY 07/13/23 Hydrocodone 10/APAP 325 [[place] 10/325*] 7.5 mg PO Q8HP PRN 07/13/23 Losartan Potassium 100 mg PO DAILY WITH BREAKFAST 07/13/23 Losartan Potassium [Cozaar*] 50 mg PO BEDTIME 07/13/23 Ondansetron [Zofran (Odt)*] 4 mg PO Q6HP PRN 07/13/23 Rivastigmine Tartrate [Rivastigmine] 4.5 mg PO BID 07/13/23 carvediloL [Coreg*] 25 mg PO BID 07/13/23 Ipratropium/Albuterol Sulfate [Iprat-Albut 0.5-3(2.5) mg/3 ml] 3 ml IH Q6H PRN #120 unit 07/15/23 Pantoprazole Sodium [Protonix] 40 mg PO DAILY 05/28/24 - Past Medical/Surgical History Diabetic: No -: htn -: hld -: COPD -: CHF -: cholecystectomy -: open heart sx -: pacemaker - Social History Smoking Status: Unknown if ever smoked Alcohol use: No CD- Drugs: Yes Caffeine use: No Place of Residence: Home Review of Systems is unable to be obtained Physical Examination Temp Pulse Resp BP Pulse Ox 97.3 F 71 19 112/65 100 05/28/24 08:00 05/28/24 08:11 12/19/24 09:39 05/28/24 08:11 05/28/24 09:39 General: Unresponsive HEENT: Other Respiratory: Clear to auscultation bilaterally Cardiovascular: Edema Gastrointestinal: Normal bowel sounds (Plus edema), Soft and benign Musculoskeletal: No clubbing Laboratory Data (last 24 hrs) 05/27/24 05/27/24 05/27/24 20:09 20:09 20:09 WBC 9.50 Hgb 10.8 L Hct 32.2 L Plt Count 221 PT 16.7 H INR 1.51 APTT 40.3 H Sodium 138 Potassium 3.5 BUN 59 H Creatinine 1.34 H Glucose 112 H Total Bilirubin 0.5 AST 26 ALT < 14 Alkaline Phosphatase 43 L - Problems (1) Multifocal pneumonia Current Visit: Yes Status: Acute Plan: Patient is 88 years of age admitted with altered mental status recent influenza possible bilateral pneumonia has normal white count patient has renal insufficiency which is slightly worse currently on cefepime and vancomycin cardiogram done about a year ago was normal for oxygenation vital signs stable recommend some IV Lasix BNP is over 11,000
[2024-05-28 18:51] LABS: Specific Gravity 1.009 (1.005-1.030); Sqamous Epithelial None Seen /HPF (None Seen); Urine Bacteria <20 /HPF (<20); Urine Bilirubin NEGATIVE (Negative); Urine Blood Negative (Negative); Urine Clarity Turbid (Clear); Urine Color Light-Yellow (Yellow); Urine Culture Reflex Order NOT NEEDED; Urine Glucose NEGATIVE (Negative); Urine Ketones TRACE (Negative); Urine Microscopic Reflex YN ORDER UMIC; Urine Mucus Slight /HPF (None Seen); Urine Nitrite NEGATIVE (Negative); Urine Protein NEGATIVE (Negative); Urine RBC <5 /HPF (None Seen); Urine Urobilinogen Normal (Normal); Urine WBC <5 /HPF (<5)
[2024-05-29] MEDS: CEFEPIME 1 GM in NA CHLORIDE 0.9% 100 ML IV SCH (00:04)
[2024-05-29] MEDS ORDERED: VANCOMYCIN 0.75 GM in NA CHLORIDE 0.9% 150 ML IVPB SCH (06:00)
[2024-05-29 06:33] LABS: Absolute Neutrophil 10.4 K/uL (1.8-8.0); Basophils % 0.1 % (0-1.3); Hematocrit 33.5 % (36.0-45.0); Hemoglobin 10.8 g/dL (12.0-15.0); Lymphocytes % 7.9 % (15.3-44.8); MCH 31.6 pg (27.0-35.0); MCHC 32.1 g/dL (32.0-36.0); MCV 98.6 fL (80-100); MPV 7.4 fL (7.6-11.3); Monocytes % 7.9 % (3.3-12.3); Neutrophils % 84.1 % (41.7-73.7); Nucleated Red Blood Cells % 0.3 % (0-0); Platelets 340 thou/uL (152-406)
[2024-05-29 06:59] LABS: Albumin 2.7 g/dL (3.4-5.0); Albumin/Globulin Ratio 0.5 (1.1-1.8); Bilirubin Total 0.4 mg/dL (0.2-1.0); Globulin 5.1 g/dL (2.3-3.5); Magnesium 2.5 mg/dL (1.6-2.4); Protein, Total 7.8 g/dL (6.4-8.2)
[2024-05-29] MEDS: PANTOPRAZOLE 40MG TABLET PO SCH (08:41)
[2024-05-29] MEDS: carvediloL 25 MG TAB PO SCH (08:41)
[2024-05-29] MEDS: RIVASTIGMINE TARTRATE 1.5 MG PO SCH (08:41)
[2024-05-29] MEDS: DIVALPROEX DR 500MG TAB PO SCH (08:41)
[2024-05-29] MEDS: APIXABAN 2.5 MG TABLET PO SCH (08:41)
--- NOTE | 2024-05-29 09:04 | RAD REPORT ---
EXAMINATION: US RENAL ULTRASOUND CLINICAL INDICATION: royal / ckd, urinary retention TECHNIQUE: Real-time ultrasonography of the abdomen was performed. COMPARISON: No prior exam. FINDINGS: RIGHT KIDNEY: Right renal length measurement: 8.8 x 4.3 x 4.3 cm. Mild diffuse increased echogenicity . No hydronephrosis. LEFT KIDNEY: Left renal length measurement: 8.2 x 3.5 x 3.3 cm. Mild diffuse increased echogenicity. No hydronephrosis. URINARY BLADDER: Incompletely distended without gross abnormality detected. ADDITIONAL FINDINGS: None. IMPRESSION: Mild increased echogenicity bilaterally compatible with underlying medical renal disease.
--- NOTE | 2024-05-29 10:47 | P.PN ---
Date of Service: 05/29/24 Subjective: unable to discern if shes feeling better or worse seems more confused, AOx1-2. tachypneic, shallow respirations last night had urinary retention, felt discomfort and couldn't urinate, bladder scan >500, nguyen inserted without issue nguyen with ~550 ml output overnight afebrile ROS: 10 point ROS as noted above, otherwise negative Physical Exam: GEN: Alert, orientedx1-2, NAD CV: Regular rate and rhythm (paced), bilateral lower extremity edema Pulm: Nonlabored respirations on 2L NC, diminished at bases b/l, +cough ABD: soft, nontender, nondistended Integumentary: No rashes Neuro: Normal speech, normal affect nguyen placed Problem List: Multifocal pneumonia Acute on chronic CHF exacerbation (HFpEF 04/2023) Recent Influenza A+ (~1 week ago) Acute hypoxic respiratory failure; multifactorial etiology secondary to above MIRIAN vs CKD Chronic a-fib; on anticoagulation with pacemaker in place COPD, chronic Hx CAD s/p CABG Hypertension Hyperlipdemia Hypothyroidism Multifocal pneumonia Acute on chronic CHF exacerbation (HFpEF 04/2023) Recent Influenza A+ (~1 week ago) Acute hypoxic respiratory failure; multifactorial etiology secondary to above on admission, presents with fever, cough, congestion, lower extremity edema fatigue. Recently diagnosed with Influenza A ~1 week ago. CXR (05/28): COPD, Nodular left mid to lower lung opacity, could relate to focal airspace disease or a small mass. CT chest (05/28): Multifocal basal predominant airspace opacities as above, most suggestive of multifocal pneumonia. Mild cardiomegaly. Wean oxygen as tolerated. Patient doesn't use home oxygen. continue empiric vanc / cefepime (05/28-) afebrile, +leukocytosis Blood cx (05/27): NGTD Echo ordered to eval EF / stenosis; Prior echo ~1 year ago with 59% EF, normal wall motion. mild MR/TR/PI BNP 11.5k -> 14k (05/28) continue IV lasix BID Dr. Bailon, pulm consulted Rosalia repeat CXR today slightly worsened check ABG, transfer to ICU this afternoon for BIPAP MIRIAN vs CKD unknown baseline. ~1.1-1.2 back in Jul 2023 renal u/s (05/29): Mild increased echogenicity bilaterally compatible with underlying medical renal disease. continue to monitor renal function On IV lasix 40 mg BID Chronic a-fib; on anticoagulation with pacemaker in place COPD, chronic Hx CAD s/p CABG Hypertension Hyperlipidemia Hypothyroidism confirm home meds, restart as appropriate home eliquis, coreg, depakote, protonix, rivastigmine resumed 05/29 VTE: home eliquis Code: Full Dispo: Home, ~3-4 days Time Spent Managing Pts Care (In Minutes): 55
--- NOTE | 2024-05-29 11:34 | RAD REPORT ---
EXAMINATION: ONE VIEW CHEST XR CLINICAL INDICATION: f/u opacities TECHNIQUE: Frontal chest projection is submitted. Examination is limited by patient positioning and t echnique. COMPARISON: 05/27/2024 FINDINGS: [id number] bilateral pulmonary opacities appear progressive since the comparison radiograph. Th is likely represents worsening pneumonia. The heart is moderately enlarged. Dual lead pacer device is present. Sternotomy wires. IMPRESSION: Mild worsening bilateral pneumonia pattern since comparison study.
[2024-05-29] MEDS: ENSURE ENLIVE 237 ML CAN PO SCH (14:00)
--- NOTE | 2024-05-29 15:45 | EKG ---
Test Date: 2024-05-27 Test Time: 19:56:09 Tie In Hand: JOHN MEASUREMENT RESULTS: Intervals: Rate: 70 AL: QRSD: 198 QT: 516 QTc: 557 [place]: P: AL: QRS: 165 T: 103 INTERPRETIVE STATEMENTS: Ventricular-paced rhythm Abnormal ECG Compared to ECG 07/13/2023 03:00:50 No significant changes Electronically Signed On 05-29-24 15:43:08 BOARDMARKER by Lawrence Mohan
[2024-05-29 17:12] LABS: Blood O2 Saturation 95.8 % (92-98.5)
[2024-05-29 17:13] LABS: Arterial Blood Carboxyhemoglob 0.9 % (0-1.5); Blood Gas THB 10.7 g/dl (12-18)
[2024-05-29] MEDS: VANCOMYCIN 0.75 GM in NA CHLORIDE 0.9% 150 ML IVPB SCH (17:47)
[2024-05-29] MEDS: NA CHLORIDE 0.9% 250 ML ONE (23:47)
[2024-05-30 05:19] LABS: Absolute Lymphocytes (CBC) 0.8 K/uL (0.7-4.9); Absolute Monocytes 1.4 K/uL (0.1-1.3); Absolute Neutrophil 6.9 K/uL (1.8-8.0); Hematocrit 33.2 % (36.0-45.0); Hemoglobin 11.3 g/dL (12.0-15.0); Lymphocytes % 9.1 % (15.3-44.8); MCH 32.8 pg (27.0-35.0); MCV 96.5 fL (80-100); Neutrophils % 75.9 % (41.7-73.7); Nucleated Red Blood Cells % 0.5 % (0-0); Platelets 289 thou/uL (152-406); RBC Red Blood Cell Count 3.45 M/uL (3.86-4.86)
[2024-05-30 05:35] LABS: Albumin 2.7 g/dL (3.4-5.0); Albumin/Globulin Ratio 0.5 (1.1-1.8); Bilirubin Total 0.4 mg/dL (0.2-1.0); Magnesium 2.5 mg/dL (1.6-2.4); Protein, Total 7.7 g/dL (6.4-8.2)
[2024-05-30 05:42] LABS: Phosphorus 1.4 mg/dL (2.5-4.9)
[2024-05-30 05:52] LABS: Blood Gas Oxyhemoglobin 96.5 % (94-97); Blood O2 Saturation 98.2 % (92-98.5)
[2024-05-30 05:53] LABS: Arterial Blood Carboxyhemoglob 0.8 % (0-1.5); Blood Gas THB 11.2 g/dl (12-18)
[2024-05-30] MEDS: POTASSIUM PHOS IN 0.9 % NACL 15 MMOL/250 ML BAG IV ONE (06:14)
--- NOTE | 2024-05-30 08:15 | P.PN ---
Date of Service: 05/30/24 Subjective: wore BiPAP throughout the night in ICU mentation improved, but still not back to baseline. occasionally repeats sentences family reports some confusion at baseline, unsure to what degree still weak afebrile, vitals stable. reports "stomach pains." unable to elaborate ROS: 10 point ROS as noted above, otherwise negative Physical Exam: GEN: Alert, orientedx1-2, NAD CV: Regular rate and rhythm (paced), bilateral lower extremity edema Pulm: Nonlabored respirations on BiPAP, diminished at bases b/l, +cough ABD: soft, nontender, nondistended Integumentary: No rashes lenox Problem List: Multifocal pneumonia Acute on chronic CHF exacerbation (HFpEF 04/2023) Recent Influenza A+ (~1 week ago) Acute hypoxic and hypercapnic respiratory failure; multifactorial etiology secondary to above Hx lung cancer s/p radiation (?2021) MIRIAN vs CKD Hypophosphatemia Chronic a-fib; on anticoagulation with pacemaker in place COPD, chronic Hx CAD s/p CABG Hypertension Hyperlipidemia Hypothyroidism Dementia, chronic Depression/Axniety Chronic back pain Multifocal pneumonia Acute on chronic CHF exacerbation (HFpEF 04/2023) Recent Influenza A+ (~1 week ago) Acute hypoxic and hypercapnic respiratory failure; multifactorial etiology secondary to above Hx lung cancer s/p radiation (?2021) on admission, presents with fever, cough, congestion, lower extremity edema fatigue. Recently diagnosed with Influenza A ~1 week ago. CXR (05/28): COPD, Nodular left mid to lower lung opacity, could relate to focal airspace disease or a small mass. CT chest (05/28): Multifocal basal predominant airspace opacities as above, most suggestive of multifocal pneumonia. Mild cardiomegaly. Echo ordered to eval EF / stenosis - unable to be done 05/29 d/t faulty machine Prior echo ~1 year ago with 59% EF, normal wall motion. mild MR/TR/PI continue empiric vanc / cefepime (05/28-) afebrile, leukocytosis resolved Blood cx (05/27): NGTD continue IV lasix BID Dr. Bailon, pulm consulted Rosalia repeat CXR (05/29): slightly worsened pneumonia pattern ABG 05/29 with elevated PCO2, HCO3. Transferred to ICU 05/29 pm for BiPAP PCO2, HCO3 levels improving after BiPAP wean BiPAP as tolerable; transition to NC. Patient doesn't use home oxygen. Repeat CXR (05/30): moderate improvement in bilateral airspace disease MIRIAN vs CKD Hypophosphatemia unknown baseline. ~1.1-1.2 back in Jul 2023 renal u/s (05/29): Mild increased echogenicity bilaterally compatible with underlying medical renal disease. continue to monitor renal function monitor and replete electrolytes as needed On IV lasix 40 mg BID Chronic a-fib; on anticoagulation with pacemaker in place COPD, chronic Hx CAD s/p CABG Hypertension Hyperlipidemia Hypothyroidism Dementia, chronic Depression/Axniety Chronic back pain confirm home meds, restart as appropriate home eliquis, coreg, depakote, protonix, rivastigmine resumed 05/29 VTE: home eliquis Code: Full Dispo: Home, ~3 days Time Spent Managing Pts Care (In Minutes): 55
--- NOTE | 2024-05-30 08:29 | RAD REPORT ---
EXAM: Chest Single View HISTORY: f/u opacities COMPARISON: 05/29/2024 FINDINGS: LUNGS/PLEURA: Scattered bilateral irregular airspace opacities appear modestly improved as does the l loraine volumes. MEDIASTINUM: The mediastinal silhouette is within normal limits. CARDIAC: Similar cardiomegaly. Sternotomy. Pacemaker. UPPER ABDOMEN: No significant abnormality. BONES: No acute fracture. LINES/TUBES/OTHER: N/A IMPRESSION: Improved lung volumes with modest improvement in bilateral irregular airspace disease compared with 1 07/30/2023.
[2024-05-30] MEDS: KCL 20 MEQ/100 mL IVPB 20 MEQ/100 ML BAG IV SCH (11:29)
[2024-05-30] MEDS: MORPHINE 2 MG/ML SYR IV PRN (17:04)
[2024-05-30] MEDS: BUSPIRONE HCL 15 MG TABLET PO SCH (21:11)
[2024-05-31 05:06] LABS: Hematocrit 34.3 % (36.0-45.0); Hemoglobin 11.4 g/dL (12.0-15.0); MCH 32.2 pg (27.0-35.0); MCHC 33.3 g/dL (32.0-36.0); MCV 96.6 fL (80-100); MPV 6.9 fL (7.6-11.3); Platelets 260 thou/uL (152-406); RBC Red Blood Cell Count 3.56 M/uL (3.86-4.86); Red Cell Distribution Width 12.9 % (12.1-15.2)
[2024-05-31 05:07] LABS: Arterial Blood Carboxyhemoglob 0.8 % (0-1.5); Blood O2 Saturation 98.6 % (92-98.5)
[2024-05-31 05:08] LABS: Blood Gas THB 11.1 g/dl (12-18)
[2024-05-31 05:34] LABS: Anion Gap 6.1 mEq/L (5.0-15.0); Magnesium 2.4 mg/dL (1.6-2.4); Phosphorus 1.5 mg/dL (2.5-4.9); Potassium 3.1 mEq/L (3.5-5.1)
--- NOTE | 2024-05-31 07:22 | P.PN ---
Date of Service: 05/31/24 Subjective: wore BiPAP for few hours overnight more alert/awake, +strength improving but remains intermittently confused, agitated. Attempting to take mask off multiple times throughout the night, needing frequent reeducation in a-fib; rate controlled 70s reports some stomach pains, +mild diffuse tenderness throughout abdomen ROS: 10 point ROS as noted above, otherwise negative Physical Exam: GEN: Alert, orientedx1-2, NAD CV: Irregularly Irregular rate and rhythm, HR 70-80s; bilateral lower extremity edema Pulm: Nonlabored respirations on 1L NC / BiPAP at night, diminished at bases b/l, +cough ABD: soft, mild diffuse tenderness throughout abdomen, nondistended Integumentary: No rashes nguyen in place Problem List: Multifocal pneumonia Acute on chronic CHF exacerbation (HFpEF 04/2023) Recent Influenza A+ (~1 week ago) Acute hypoxic and hypercapnic respiratory failure; multifactorial etiology secondary to above Hx lung cancer s/p radiation (?2021) MIRIAN vs CKD Hypernatremia Hypophosphatemia Chronic a-fib; on anticoagulation with pacemaker in place COPD, chronic Hx CAD s/p CABG Hypertension Hyperlipidemia Hypothyroidism Dementia, chronic Depression/Axniety Chronic back pain Multifocal pneumonia Acute on chronic CHF exacerbation (HFpEF 04/2023) Recent Influenza A+ (~1 week ago) Acute hypoxic and hypercapnic respiratory failure; multifactorial etiology secondary to above Hx lung cancer s/p radiation (?2021) on admission, presents with fever, cough, congestion, lower extremity edema fatigue. Recently diagnosed with Influenza A ~1 week ago. CXR (05/28): COPD, Nodular left mid to lower lung opacity, could relate to focal airspace disease or a small mass. CT chest (05/28): Multifocal basal predominant airspace opacities as above, most suggestive of multifocal pneumonia. Mild cardiomegaly. Echo ordered to eval EF / stenosis - unable to be done 05/29 d/t faulty machine Prior echo ~1 year ago with 59% EF, normal wall motion. mild MR/TR/PI continue empiric vanc / cefepime (05/28-) afebrile, leukocytosis resolved Blood cx (05/27): NGTD lasix dc'd 05/[address] Bailon, pulm consulted Rosalia repeat CXR (05/29): slightly worsened pneumonia pattern ABG 05/29 with elevated PCO2, HCO3. Transferred to ICU 05/29 pm for BiPAP PCO2, HCO3 levels improving with BiPAP 05/30 wean BiPAP as tolerable; transition to NC. Patient doesn't use home oxygen. Repeat CXR (05/30): moderate improvement in bilateral airspace disease MIRIAN vs CKD Hypernatremia Hypophosphatemia unknown baseline. ~1.1-1.2 back in Jul 2023 renal u/s (05/29): Mild increased echogenicity bilaterally compatible with underlying medical renal disease. continue to monitor renal function monitor and replete electrolytes as needed lasix dc'd 05/30 given hypernatremia, add d5w, recheck BMP later today Nephrology consulted Chronic a-fib; on anticoagulation with pacemaker in place COPD, chronic Hx CAD s/p CABG Hypertension Hyperlipidemia Hypothyroidism Dementia, chronic Depression/Axniety Chronic back pain confirm home meds, restart as appropriate home eliquis, coreg, depakote, protonix, rivastigmine resumed 05/29 home buspirone resumed 05/30 VTE: home eliquis Code: Full Dispo: Home, ~3 days pending improvement / off BiPAP, electrolytes stable, nephro recs Time Spent Managing Pts Care (In Minutes): 55
[2024-05-31] MEDS ORDERED: IPRATROPIUM BROM 0.5MG/2.5ML NEB PRN (08:36)
[2024-05-31] MEDS ORDERED: ALBUTEROL 2.5 MG/3 ML NEB SOL NEB PRN (08:36)
[2024-05-31] MEDS: D5 0.45 NS 1,000 ML IV SCH (09:01)
[2024-05-31] MEDS: POTASSIUM PHOS IN 0.9 % NACL 15 MMOL/250 ML BAG IV ONE (09:02)
[2024-05-31] MEDS: KCL 20 MEQ/100 mL IVPB 20 MEQ/100 ML BAG IV SCH (12:00)
[2024-05-31 12:39] LABS: Anion Gap 5.9 mEq/L (5.0-15.0); Magnesium 2.4 mg/dL (1.6-2.4); Potassium 3.9 mEq/L (3.5-5.1)
[2024-05-31] MEDS: D5W 1,000 ML IV SCH (14:03)
[2024-06-01 06:15] LABS: Absolute Lymphocytes (CBC) 1.1 K/uL (0.7-4.9); Absolute Monocytes 2.4 K/uL (0.1-1.3); Basophils % 0.1 % (0-1.3); Eosinophils % 0.1 % (0-4.4); Hematocrit 33.1 % (36.0-45.0); Hemoglobin 10.7 g/dL (12.0-15.0); Lymphocytes % 7.7 % (15.3-44.8); MCH 32.1 pg (27.0-35.0); MCHC 32.5 g/dL (32.0-36.0); MCV 98.8 fL (80-100); Monocytes % 16.8 % (3.3-12.3); Neutrophils % 75.3 % (41.7-73.7); Nucleated Red Blood Cells % 0.1 % (0-0); Platelets 228 thou/uL (152-406); RBC Red Blood Cell Count 3.35 M/uL (3.86-4.86); Red Cell Distribution Width 13.1 % (12.1-15.2)
[2024-06-01 06:51] LABS: Anion Gap 0.8 mEq/L (5.0-15.0); Magnesium 2.5 mg/dL (1.6-2.4); Phosphorus 2.3 mg/dL (2.5-4.9); Potassium 3.8 mEq/L (3.5-5.1)
--- NOTE | 2024-06-01 07:49 | P.PN ---
Date of Service: 06/01/24 Subjective: more awake/alert today. Slightly more responsive/talkative repeating herself at times breathing not as labored doesn't think shes getting worse ROS: 10 point ROS as noted above, otherwise negative Physical Exam: GEN: Alert, orientedx1-2, NAD CV: Regular rate and rhythm, HR 70-80s; bilateral lower extremity edema Pulm: Nonlabored respirations on 2L NC, diminished at bases b/l ABD: soft, nontender, nondistended nguyen in place Problem List: Multifocal pneumonia Acute on chronic CHF exacerbation (HFpEF 04/2023) Recent Influenza A+ (~1 week ago) Acute hypoxic and hypercapnic respiratory failure; multifactorial etiology secondary to above Hx lung cancer s/p radiation (?2021) MIRIAN vs CKD Hypernatremia Hypophosphatemia Chronic a-fib; on anticoagulation with pacemaker in place COPD, chronic Hx CAD s/p CABG Hypertension Hyperlipidemia Hypothyroidism Dementia, chronic Depression/Axniety Chronic back pain Multifocal pneumonia Acute on chronic CHF exacerbation (HFpEF 04/2023) Recent Influenza A+ (~1 week ago) Acute hypoxic and hypercapnic respiratory failure; multifactorial etiology secondary to above Hx lung cancer s/p radiation (?2021) on admission, presents with fever, cough, congestion, lower extremity edema fatigue. Recently diagnosed with Influenza A ~1 week ago. CXR (05/28): COPD, Nodular left mid to lower lung opacity, could relate to focal airspace disease or a small mass. repeat CXR (05/29): slightly worsened pneumonia pattern Repeat CXR (05/30): moderate improvement in bilateral airspace disease CT chest (05/28): Multifocal basal predominant airspace opacities as above, most suggestive of multifocal pneumonia. Mild cardiomegaly. Echo ordered to eval EF / stenosis - unable to be done 05/29 d/t faulty machine Prior echo ~1 year ago with 59% EF, normal wall motion. mild MR/TR/PI continue empiric vanc / cefepime (05/28-) afebrile, leukocytosis resolved Blood cx (05/27): NGTD lasix dc'd 05/[address] Bailon, pulm consulted one ABG 05/29 with elevated PCO2, HCO3. Transferred to ICU 05/29 pm for BiPAP PCO2, HCO3 levels improved with BiPAP wean oxygen as tolerated. Patient doesn't use home oxygen. seems to be doing better, trial off bipap MIRIAN vs CKD Hypernatremia, hypovolemia Hypophosphatemia unknown baseline. ~1.1-1.2 back in Jul 2023 renal u/s (05/29): Mild increased echogenicity bilaterally compatible with underlying medical renal disease. continue to monitor renal function monitor and replete electrolytes as needed lasix dc'd 05/30 given hypernatremia repeat sodium improving 06/01; 155 -> 149 drinking more, decreased to 30cc/hr 06/01 AM, but reportedly had some coughing with swallowing -> concern for aspiration NPO, and increased d5w to 50cc/hr speech consult repeat BMP later today Nephrology consulted - to see today Chronic a-fib; on anticoagulation with pacemaker in place COPD, chronic Hx CAD s/p CABG Hypertension Hyperlipidemia Hypothyroidism Dementia, chronic Depression/Axniety Chronic back pain confirm home meds, restart as appropriate home eliquis, coreg, depakote, protonix, rivastigmine resumed 05/29 home buspirone resumed 05/30 VTE: home eliquis Code: Full Dispo: Home, ~3 days pending improvement, electrolytes stable possible downgrade from ICU in next ~24 hrs Time Spent Managing Pts Care (In Minutes): 55
[2024-06-01] MEDS: D5W 1,000 ML IV SCH ×2 (09:25→13:16)
[2024-06-01] MEDS: CEFEPIME 1 GM in NA CHLORIDE 0.9% 100 ML IV SCH (09:26)
[2024-06-01 12:26] LABS: Anion Gap 2.9 mEq/L (5.0-15.0); Magnesium 2.4 mg/dL (1.6-2.4); Potassium 3.9 mEq/L (3.5-5.1)
--- NOTE | 2024-06-01 13:11 | ECHO ---
HEIGHT: 5 ft 4 in WEIGHT: 85 lb 8.63 oz DATE OF STUDY: 06/01/[address]: Prince Sophie Wiseman MD 2-DIMENSIONAL: YES M.MODE: YES DOPPLER: YES COLOR FLOW: YES TDS: NO PORTABLE: YES DEFINITY: NO BUBBLE STUDY: NO DIAGNOSIS: CONGESTIVE HEART FAILURE CARDIAC HISTORY: CATHERIZATION:YES SURGERY: YES PROSTHETIC VALVE: NO PACEMAKER: YES MEASUREMENTS (cm) DIASTOLIC (NORMALS) SYSTOLIC (NORMALS) IVSd 1.2 (0.6-1.2) LA Diam 4.0 (1.9-4.0) LVEF 55% LVIDd 2.7 (3.5-5.7) LVIDs 1.9 (2.0-3.5) %FS 27% LVPWd 1.2 (0.6-1.2) Ao Diam 2.5 (2.0-3.7) 2 DIMENSIONAL ASSESSMENT: RIGHT ATRIUM: NORMAL LEFT ATRIUM: SEVERELY DILATED RIGHT VENTRICLE: NORMAL LEFT VENTRICLE: NORMAL TRICUSPID VALVE: MODERATE TRICUSPID REGURGITATION MITRAL VALVE: MODERATE MITRAL REGURGITATION PULMONIC VALVE: MILD PULMONARY REGURGITATION AORTIC VALVE: MILD AORTIC REGURGITATION. PERICARDIAL EFFUSION: NONE AORTIC ROOT: NORMAL LEFT VENTRICULAR WALL MOTION: NORMAL. DOPPLER/COLOR FLOW: DIASTOLIC DYSFUNCTION. COMMENTS: 1. NORMAL LEFT VENTRICULAR SYSTOLIC FUNCTION. LEFT VENTRICULAR EJECTION FRACTION 55%. NORMAL WALL MOTION. 2. DIASTOLIC DYSFUNCTION. 3. MODERATE TRICUSPID REGURGITATION. 4. MODERATE MITRAL REGURGITATION. 5. ELEVATED FILLING PRESSURE. RIGHT ATRIAL PRESSURE 15-20 mmHg. 6. SEVERE PULMONARY HYPERTENSION. RIGHT VENTRICULAR SYSTOLIC PRESSURE >60 mmHg. TECHNOLOGIST: FERCHO STEPHENSON
--- NOTE | 2024-06-01 13:22 | P.CNS ---
Date of Consult: 06/01/24 Reason for Consult: Hypernatremia, MIRIAN on admission, vol management Requesting Physician: Handy Sumner Chief Complaint: respiratory failure History of Present Illness: Patient is a 88-year-old female whose history is obtained largely through chart review with a reported recent diagnosis of influenza and with recent chest CT showing multifocal opacities, PNA. Pt presented due to worsening congestion, cough, malaise. She does not use oxygen at baseline. Her past medical history include diastolic CHF, unspecified COPD, hypertension. She also has a history of chronic atrial fibrillation and she is chronically anticoagulated with Eliquis. She has developed hypernatremia during hospitalization. She is taking in some PO intake. Allergies levofloxacin [From Levaquin] Allergy (Verified 07/13/23 05:24) Rash Home Medications: Albuterol Inhaler [Ventolin Inhaler*] 2 puff IH Q6HP PRN 07/13/23 Amlodipine [Norvasc*] 5 mg PO DAILY 07/13/23 Apixaban [Eliquis *] 2.5 mg PO BID 07/13/23 Buspirone HCl 7.5 mg PO BID 07/13/23 Divalproex Sodium 500 mg PO DAILY 07/13/23 Ezetimibe [Zetia*] 10 mg PO DAILY 07/13/23 Furosemide [Lasix*] 20 mg PO DAILY 07/13/23 Hydrocodone 10/APAP 325 [[place] 10/325*] 7.5 mg PO Q8HP PRN 07/13/23 Losartan Potassium 100 mg PO DAILY WITH BREAKFAST 07/13/23 Losartan Potassium [Cozaar*] 50 mg PO BEDTIME 07/13/23 Ondansetron [Zofran (Odt)*] 4 mg PO Q6HP PRN 07/13/23 Rivastigmine Tartrate [Rivastigmine] 4.5 mg PO BID 07/13/23 carvediloL [Coreg*] 25 mg PO BID 07/13/23 Ipratropium/Albuterol Sulfate [Iprat-Albut 0.5-3(2.5) mg/3 ml] 3 ml IH Q6H PRN #120 unit 07/15/23 Pantoprazole Sodium [Protonix] 40 mg PO DAILY 05/28/24 - Past Medical/Surgical History Diabetic: No -: htn -: hld -: COPD -: CHF -: cholecystectomy -: open heart sx -: pacemaker - Social History Smoking Status: Unknown if ever smoked Alcohol use: No CD- Drugs: Yes Caffeine use: No Place of Residence: Home Review of Systems Limited RO General: Weakness, As per HPI Respiratory: Cough, As per HPI Cardiovascular: As per HPI Gastrointestinal: Unremarkable Genitourinary: Other (nguyen present) Musculoskeletal: Other (No reports of acute arthralgias ) Neurological: Other (no reports of CVA, BLACKWELL, seizures) Physical Examination Temp Pulse Resp BP Pulse Ox 97.8 F 70 29 H 115/42 L 100 06/01/24 12:00 06/01/24 12:00 06/01/24 12:06/01/24 12:06/01/24 12:00 General: In no apparent distress, Cooperative, Other (Elderly, frail) HEENT: Atraumatic, Normocephalic, Other (LFNC) Neck: Supple Respiratory: Other (reduced BS at bases, scattered rales/mild exp wheeze) Cardiovascular: Other (Non tachy, irregular, cardiac murmur) Gastrointestinal: Soft and benign, Non-distended, No guarding Musculoskeletal: No swelling, No tenderness Integumentary: No rashes Neurological: Normal speech, Other (No tremors or myoclonus, foot drop) Conclusions/Impression: A/P) 1. Stage 1 MIRIAN on admission, multifactorial but in the setting of ARB use, other with Cr level downward trending but even with level at ULN with her diminished muscle mass may be notable 2. Hypernatremia in the setting of impaired intake, diuretic use, insensible losses, other -agree with escalating D5W to 50 cc, calculated water deficit targeting Na of 140 is 1.4L but that does not take into account urinary/insensible water losses 3. Acute hypoxic resp insufficiency, in the setting of Influenza PNA, and chronic diastolic CHF -monitor resp status closely, management per pulm 4. 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
[2024-06-01] MEDS: SPIRONOLACTONE 25 MG TABLET PO SCH (13:33)
[2024-06-01 18:11] LABS: Albumin 2.3 g/dL (3.4-5.0); Anion Gap 3.2 mEq/L (5.0-15.0); Magnesium 2.5 mg/dL (1.6-2.4); Phosphorus 2.1 mg/dL (2.5-4.9); Potassium 4.2 mEq/L (3.5-5.1)
[2024-06-02 05:43] LABS: Absolute Eosinophils 0.1 K/uL (0-0.5); Absolute Lymphocytes (CBC) 1.1 K/uL (0.7-4.9); Absolute Monocytes 1.9 K/uL (0.1-1.3); Absolute Neutrophil 10.9 K/uL (1.8-8.0); Eosinophils % 0.4 % (0-4.4); Hematocrit 30.6 % (36.0-45.0); Hemoglobin 10.1 g/dL (12.0-15.0); MCH 32.6 pg (27.0-35.0); MCHC 32.9 g/dL (32.0-36.0); MCV 99.2 fL (80-100); MPV 7.6 fL (7.6-11.3); Monocytes % 13.8 % (3.3-12.3); Neutrophils % 77.8 % (41.7-73.7); Nucleated Red Blood Cells % 0.1 % (0-0); Platelets 192 thou/uL (152-406); RBC Red Blood Cell Count 3.08 M/uL (3.86-4.86)
[2024-06-02 06:06] LABS: AST/SGOT 12 U/L (15-37); Albumin 2.3 g/dL (3.4-5.0); Albumin/Globulin Ratio 0.5 (1.1-1.8); Alkaline Phosphatase 38 U/L (45-117); Anion Gap 1.4 mEq/L (5.0-15.0); BUN Blood Urea Nitrogen 49 mg/dL (7-18); Bicarbonate 43 mEq/L (21-32); Bilirubin Total 0.3 mg/dL (0.2-1.0); Globulin 4.4 g/dL (2.3-3.5); Glomerular Filtration Rate 67 ml/min (=/>90); Glucose Level 161 mg/dL (74-106); Magnesium 2.5 mg/dL (1.6-2.4); Potassium 4.4 mEq/L (3.5-5.1); Protein, Total 6.7 g/dL (6.4-8.2); Sodium Level 145 mEq/L (136-145)
[2024-06-02 06:20] LABS: ALT/SGPT < 14 U/L (13-56)
[2024-06-02 06:40] LABS: Phosphorus 1.3 mg/dL (2.5-4.9)
[2024-06-02] MEDS: SODIUM PHOSPHATE 15 MM in NA CHLORIDE 0.9% 250 ML IV ONE ×2 (07:00→08:20)
--- NOTE | 2024-06-02 11:43 | P.PN ---
Nephrology note (S) Pt NPO due to aspiration concern, no labored breathing when seen but per reports has been at times, lethargic when seen, getting IV Na-Phos. Remains on D5W IVF (O) Vitals reviewed in the EMR General: In no apparent distress, Cooperative, Other (Elderly, frail) HEENT: Atraumatic, Normocephalic, Other (LFNC) Neck: Supple Respiratory: Other (reduced BS at bases, scattered rales/mild exp wheeze) Cardiovascular: Other (Non tachy, irregular, cardiac murmur) Gastrointestinal: Soft and benign, Non-distended, No guarding Musculoskeletal: No swelling, No tenderness Integumentary: No rashes Neurological: Lethargic but awakens easily, mumbles (No tremors or myoclonus, foot drop) Conclusions/Impression: A/P) 1. Stage 1 MIRIAN on admission, multifactorial but in the setting of ARB use, other with Cr level downward trended but even with level at ULN with her diminished muscle mass may be notable 2. Hypernatremia in the setting of impaired intake, diuretic use, insensible losses, other -agreed yesterday with escalating D5W to 50 cc, calculated water deficit targeting Na of 140 was 1.4L but that does not take into account urinary/insensible water losses. Na level down to 145 this AM, D5W rate lowered but will maintain 3. Acute hypoxic resp insufficiency, in the setting of Influenza PNA, and chronic diastolic CHF -monitor resp status closely, management per pulm 4. 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
[2024-06-02] MEDS: D5W 1,000 ML IV SCH (12:24)
[2024-06-02] MEDS: FUROSEMIDE 20 MG/ 2ML VIAL IV SCH (12:24)
--- NOTE | 2024-06-02 15:11 | P.PN ---
Subjective Date of Service: 06/02/24 Chief Complaint: respiratory failure Physical Examination - Vital Signs Temperature: 97.5 F Blood Pressure: 106/48 Pulse: 70 Respirations: 20 Pulse Ox (%): 100 - Studies Microbiology Data (last 24 hrs): 05/27/24 20:22 Blood - Blood Aerobic Blood Culture - Final No growth in 5 days. 05/27/24 20:22 Blood - Blood Anaerobic Blood Culture - Final No growth in 5 days. 05/27/24 20:09 Blood - Blood Aerobic Blood Culture - Final No growth in 5 days. 05/27/24 20:09 Blood - Blood Anaerobic Blood Culture - Final No growth in 5 days. Assessment And Plan - Plan Physical Exam: GEN: Alert, oriented x 1, NAD CV: Normal rate and regular rhythm, ; bilateral lower extremity edema Pulm: Clear to auscultation bilaterally, adequate breath sounds bilaterally. ABD: soft, nontender, nondistended Urogenital: nguyen in place Diagnosis Multifocal pneumonia Acute on chronic CHF exacerbation (HFpEF 04/2023) Recent history Influenza A infection Acute hypoxic and hypercapnic respiratory failure. Hx lung cancer s/p radiation (?2021) MIRIAN vs CKD Hypernatremia Hypophosphatemia Chronic a-fib; on anticoagulation with pacemaker in place COPD, chronic Hx CAD s/p CABG Hypertension Hyperlipidemia Hypothyroidism Dementia, chronic Depression/Axniety Chronic back pain Plan Multifocal pneumonia Acute on chronic CHF exacerbation (HFpEF 04/2023) Recent Influenza A+ (~1 week ago) Acute hypoxic and hypercapnic respiratory failure; multifactorial etiology secondary to above Hx lung cancer s/p radiation (2021) Recently diagnosed with Influenza A. CXR (05/28): COPD, Nodular left mid to lower lung opacity, could relate to focal airspace disease or a small mass. repeat CXR (05/29): slightly worsened pneumonia pattern Repeat CXR (05/30): moderate improvement in bilateral airspace disease CT chest (05/28): Multifocal basal predominant airspace opacities as above, most suggestive of multifocal pneumonia. Mild cardiomegaly. Echo is pending. Prior echo showed 59% EF, normal wall motion. mild MR/TR/PI Blood cx (05/27): NGTD continue IV cefepime lasix dc'd 05/[address] Bailon input appreciated. ABG 05/29 with elevated PCO2, HCO3. Transferred to ICU 05/29 pm for BiPAP PCO2, HCO3 levels improved after BiPAP treatment. BiPAP weaned to oxygen by nasal cannula Wean off oxygen as tolerated Continue Duonebs MIRIAN vs CKD Hypernatremia, hypovolemia Hypophosphatemia unknown baseline. ~1.1-1.2 back in Jul 2023 renal u/s (05/29): Mild increased echogenicity bilaterally compatible with underlying medical renal disease. continue to monitor renal function monitor and replete electrolytes as needed lasix dc'd 05/30 given hypernatremia Nephrology input appreciated. Hypernatremia resolved Patient is on IV D5. Nephrology is titrating D5 infusion. Aspiration event Oropharyngeal dysphagia speech evaluated by speech and patient failed swallow evaluation. Patient kept n.p.o. Ongoing swallowing assessment. Chronic a-fib; on anticoagulation with pacemaker in place COPD, chronic Hx CAD s/p CABG Hypertension Hyperlipidemia Hypothyroidism Dementia, chronic Depression/Axniety Chronic back pain Continue home medications-eliquis, coreg, depakote, protonix, rivastigmine resumed 05/29 home buspirone resumed 05/30 VTE: home eliquis Code: Full Dispo: Home Time Spent Managing Pts Care (In Minutes): 38
[2024-06-03 04:14] VITALS: BMI 15.5
[2024-06-03 05:28] LABS: Absolute Eosinophils 0.1 K/uL (0-0.5); Absolute Monocytes 1.5 K/uL (0.1-1.3); Absolute Neutrophil 9.6 K/uL (1.8-8.0); Eosinophils % 0.5 % (0-4.4); Hematocrit 31.5 % (36.0-45.0); Hemoglobin 10.3 g/dL (12.0-15.0); Lymphocytes % 8.1 % (15.3-44.8); MCH 32.3 pg (27.0-35.0); MCHC 32.6 g/dL (32.0-36.0); MPV 7.8 fL (7.6-11.3); Monocytes % 12.1 % (3.3-12.3); Neutrophils % 79.3 % (41.7-73.7); Nucleated Red Blood Cells % 0.1 % (0-0); Platelets 160 thou/uL (152-406); RBC Red Blood Cell Count 3.18 M/uL (3.86-4.86); Red Cell Distribution Width 12.9 % (12.1-15.2)
[2024-06-03 05:49] LABS: Anion Gap 2.4 mEq/L (5.0-15.0); Magnesium 2.6 mg/dL (1.6-2.4); Phosphorus 2.5 mg/dL (2.5-4.9); Potassium 4.4 mEq/L (3.5-5.1)
--- NOTE | 2024-06-03 12:45 | P.PN ---
Nephrology note (S) NPO lifted, speech therapy noted, overall condition stable but remains in the ICU, remains on D5W, labs stable (O) Vitals reviewed in the EMR General: In no apparent distress, Cooperative, Other (Elderly, frail) HEENT: Atraumatic, Normocephalic, Other (LFNC) Neck: Supple Respiratory: Other (reduced BS at bases, scattered rales/mild exp wheeze) Cardiovascular: Other (Non tachy, irregular, cardiac murmur) Gastrointestinal: Soft and benign, Non-distended, No guarding Musculoskeletal: No swelling, No tenderness Integumentary: No rashes Neurological: Lethargic but awakens easily, mumbles (No tremors or myoclonus, foot drop) Conclusions/Impression: A/P) 1. Stage 1 MIRIAN on admission, multifactorial but in the setting of ARB use, other with Cr level downward trended but even with level at ULN with her diminished muscle mass may be notable 2. Hypernatremia in the setting of impaired intake, diuretic use, insensible losses, other -agreed earlier in the week with escalating D5W to 50 cc, calculated water deficit targeting Na of 140 was 1.4L but that does not take into account urinary/insensible water losses. Na level down to 145 since, D5W rate lowered but will maintain for now 3. Acute hypoxic resp insufficiency, in the setting of Influenza PNA, and chronic diastolic CHF -monitor resp status closely, management per pulm 4. 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 Metab alkalosis 2nd to CHF, diuretics, other -will place on low dose Diamox with hypercarbia on prior ABG
[2024-06-03] MEDS: acetaZOLAMIDE 250 MG TAB PO SCH (13:30)
--- NOTE | 2024-06-03 14:32 | P.PN ---
Subjective Date of Service: 06/03/24 Chief Complaint: respiratory failure Patient has no new complaint. She is tolerating pureed diet. No issues overnight. Physical Examination - Vital Signs Temperature: 97.7 F Blood Pressure: 112/44 Pulse: 74 Respirations: 28 Pulse Ox (%): 100 Assessment And Plan - Plan Physical Exam: GEN: Alert, oriented x 1, NAD CV: Normal rate and regular rhythm, ; bilateral lower extremity edema Pulm: Clear to auscultation bilaterally, adequate breath sounds bilaterally. ABD: soft, nontender, nondistended Urogenital: nguyen in place Diagnosis Multifocal pneumonia Acute on chronic CHF exacerbation (HFpEF 04/2023) Recent history Influenza A infection Acute hypoxic and hypercapnic respiratory failure. Hx lung cancer s/p radiation (?2021) MIRIAN vs CKD Hypernatremia Hypophosphatemia Chronic a-fib; on anticoagulation with pacemaker in place COPD, chronic Hx CAD s/p CABG Hypertension Hyperlipidemia Hypothyroidism Dementia, chronic Depression/Axniety Chronic back pain Plan Multifocal pneumonia Acute on chronic CHF exacerbation (HFpEF 04/2023) Recent Influenza A+ (~1 week ago) Acute hypoxic and hypercapnic respiratory failure; multifactorial etiology secondary to above Hx lung cancer s/p radiation (2021) Recently diagnosed with Influenza A. CXR (05/28): COPD, Nodular left mid to lower lung opacity, could relate to focal airspace disease or a small mass. repeat CXR (05/29): slightly worsened pneumonia pattern Repeat CXR (05/30): moderate improvement in bilateral airspace disease CT chest (05/28): Multifocal basal predominant airspace opacities as above, most suggestive of multifocal pneumonia. Mild cardiomegaly. Echo is pending. Prior echo showed 59% EF, normal wall motion. mild MR/TR/PI Blood cx (05/27): NGTD continue IV cefepime. Will transition to oral antibiotics in a.m. lasix dc'd 05/[address] Bailon input appreciated. ABG 05/29 with elevated PCO2, HCO3. Transferred to ICU 05/29 pm for BiPAP PCO2, HCO3 levels improved after BiPAP treatment. BiPAP weaned to oxygen by nasal cannula. Patient is tolerating 2 L oxygen by nasal cannula with 100% SaO2 Wean off oxygen to room air as tolerated Continue Duonebs MIRIAN vs CKD Hypernatremia, hypovolemia Hypophosphatemia unknown baseline. ~1.1-1.2 back in Jul 2023 renal u/s (05/29): Mild increased echogenicity bilaterally compatible with underlying medical renal disease. MIRIAN resolved. lasix dc'd 05/30 given hypernatremia Nephrology is following. Hypernatremia resolved, phosphate corrected. Patient is on low rate IV D5. Aspiration event Oropharyngeal dysphagia speech evaluated by speech and patient failed swallow evaluation. Patient is now tolerating pured diet. Ongoing swallowing assessment. Chronic a-fib; on anticoagulation with pacemaker in place COPD, chronic Hx CAD s/p CABG Hypertension Hyperlipidemia Hypothyroidism Dementia, chronic Depression/Axniety Chronic back pain Continue home medications-eliquis, coreg, depakote, protonix, rivastigmine resumed 05/29 Continue home dose buspirone. VTE: home eliquis Code: Full
[2024-06-03 15:17] LABS: Magnesium 2.4 mg/dL (1.6-2.4); Phosphorus 2.6 mg/dL (2.5-4.9)
[2024-06-04 06:53] LABS: Albumin 2.1 g/dL (3.4-5.0); Anion Gap 4.3 mEq/L (5.0-15.0); Magnesium 2.7 mg/dL (1.6-2.4); Phosphorus 3.4 mg/dL (2.5-4.9); Potassium 4.3 mEq/L (3.5-5.1)
--- NOTE | 2024-06-04 10:20 | P.PN ---
Nephrology note (S) Moved out of the ICU, resting, lethargic, no resp distress, foot tray seen at bedside, untouched (O) Vitals reviewed in the EMR General: In no apparent distress, Cooperative, Other (Elderly, frail) HEENT: Atraumatic, Normocephalic, Other (LFNC) Neck: Supple Respiratory: Other (reduced BS at bases, scattered rales/mild exp wheeze) Cardiovascular: Other (Non tachy, irregular, cardiac murmur) Gastrointestinal: Soft and benign, Non-distended, No guarding Musculoskeletal: No swelling, No tenderness Integumentary: No rashes Neurological: Lethargic but awakens easily, mumbles (No tremors or myoclonus, foot drop) Conclusions/Impression: A/P) 1. Stage 1 MIRIAN on admission, multifactorial but in the setting of ARB use, other with Cr level downward trended but even with level at ULN with her diminished muscle mass may be notable 2. Hypernatremia in the setting of impaired intake, diuretic use, insensible losses, other -agreed earlier in the week with escalating D5W to 50 cc, calculated water deficit targeting Na of 140 was 1.4L but that does not take into account urinary/insensible water losses. Na level down to 145 or under since, D5W rate lowered but will maintain for now 3. Acute hypoxic resp insufficiency, in the setting of Influenza PNA, and chronic diastolic CHF -monitor resp status closely, management per pulm 4. 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 Metab alkalosis 2nd to CHF, diuretics, other -did place on low dose Diamox with hypercarbia on prior ABG
--- NOTE | 2024-06-04 12:04 | P.PN ---
Subjective Date of Service: 06/04/24 Chief Complaint: respiratory failure Patient has no new complaint. She is confused. No issues overnight, no reported agitation. She is tolerating pureed diet. Physical Examination - Vital Signs Temperature: 96.4 F Blood Pressure: 114/53 Pulse: 69 Respirations: 20 Pulse Ox (%): 100 Assessment And Plan - Plan Physical Exam: GEN: Alert, oriented x 1, NAD CV: Normal rate and regular rhythm, ; bilateral lower extremity edema Pulm: Clear to auscultation bilaterally, adequate breath sounds bilaterally. ABD: soft, nontender, nondistended Urogenital: nguyen in place Diagnosis Multifocal pneumonia Acute on chronic CHF exacerbation (HFpEF 04/2023) Recent history Influenza A infection Acute hypoxic and hypercapnic respiratory failure. Hx lung cancer s/p radiation (?2021) MIRIAN vs CKD Hypernatremia Hypophosphatemia Chronic a-fib; on anticoagulation with pacemaker in place COPD, chronic Hx CAD s/p CABG Hypertension Hyperlipidemia Hypothyroidism Dementia, chronic Depression/Axniety Chronic back pain Plan Multifocal pneumonia Acute on chronic diastolic CHF exacerbation (HFpEF 04/2023) Recent Influenza A+ (~1 week ago) Acute hypoxic and hypercapnic respiratory failure; multifactorial etiology secondary to above Hx lung cancer s/p radiation (2021) Recently diagnosed with Influenza A. CXR (05/28): COPD, Nodular left mid to lower lung opacity, could relate to focal airspace disease or a small mass. CT chest (05/28): Multifocal basal predominant airspace opacities as above, most suggestive of multifocal pneumonia. Mild cardiomegaly. Echo: Normal EF, severe pulm hypertension. Prior echo showed 59% EF, normal wall motion. mild MR/TR/PI Blood cx (05/27): NGTD ABG on 05/29 with elevated PCO2, HCO3. Patient transferred to ICU 05/29 pm for BiPAP and subsequently transferred out of the ICU after pCO2 improved. BiPAP weaned to oxygen by nasal cannula. Patient is tolerating 2 L oxygen by nasal cannula with 100% SaO2 Wean off oxygen to room air as tolerated Patient completed 7 days of IV cefepime. Given possible aspiration pneumonia, will transition IV cefepime to oral Augmentin. lasix dc'd 05/[address] Bailon input appreciated. Continue Duonebs MIRIAN vs CKD Hypernatremia, hypovolemia Hypophosphatemia unknown baseline. ~1.1-1.2 back in Jul 2023 renal u/s (05/29): Mild increased echogenicity bilaterally compatible with underlying medical renal disease. MIRIAN resolved. lasix dc'd 05/30 given hypernatremia Nephrology is following. Hypernatremia resolved, phosphate corrected. Patient is on low rate IV D5. Aspiration event Oropharyngeal dysphagia speech evaluated by speech and patient failed swallow evaluation. Patient is tolerating pured diet. Ongoing swallowing assessment. Chronic a-fib; on anticoagulation with pacemaker in place COPD, chronic Hx CAD s/p CABG Hypertension Hyperlipidemia Hypothyroidism Dementia, chronic Depression/Axniety Chronic back pain Continue home medications-eliquis, coreg, depakote, protonix, rivastigmine. Continue home dose buspirone. DVT prophylaxis: Eliquis Advanced directive: Full code
[2024-06-04] MEDS: AMOX/K CLAV 875 MG TAB PO SCH (20:25)
[2024-06-05 04:57] LABS: Absolute Lymphocytes (CBC) 0.7 K/uL (0.7-4.9); Absolute Monocytes 0.7 K/uL (0.1-1.3); Absolute Neutrophil 8.4 K/uL (1.8-8.0); Basophils % 0.1 % (0-1.3); Eosinophils % 0.1 % (0-4.4); Hematocrit 32.7 % (36.0-45.0); Hemoglobin 10.1 g/dL (12.0-15.0); Lymphocytes % 6.8 % (15.3-44.8); MCH 31.8 pg (27.0-35.0); MCV 102.8 fL (80-100); MPV 9.2 fL (7.6-11.3); Platelets 137 thou/uL (152-406); RBC Red Blood Cell Count 3.18 M/uL (3.86-4.86)
[2024-06-05 05:16] LABS: Albumin 2.2 g/dL (3.4-5.0); Anion Gap 2.3 mEq/L (5.0-15.0); Phosphorus 3.5 mg/dL (2.5-4.9); Potassium 4.3 mEq/L (3.5-5.1)
[2024-06-05 07:33] LABS: Differential Total Cells Count 100; Lymphocytes 6 % (15-42); Monocytes 7 % (0-10); Segmented Neutrophils 87 % (40-80)
[2024-06-05 07:34] LABS: Blood Morphology Comment NOT SEEN (NOT SEEN); Platelet Estimate DECR
--- NOTE | 2024-06-05 10:41 | P.PN ---
Nephrology note (S) Moved out of the ICU, resting, lethargic, no resp distress, foot tray seen at bedside, largely untouched. No major changes noted. (O) Vitals reviewed in the EMR General: In no apparent distress, Cooperative, Other (Elderly, frail) HEENT: Atraumatic, Normocephalic, Other (LFNC) Neck: Supple Respiratory: Other (reduced BS at bases, scattered rales/mild exp wheeze) Cardiovascular: Other (Non tachy, irregular, cardiac murmur) Gastrointestinal: Soft and benign, Non-distended, No guarding Musculoskeletal: No swelling, No tenderness Integumentary: No rashes Neurological: Lethargic but awakens easily, mumbles (No tremors or myoclonus, foot drop) Conclusions/Impression: A/P) 1. Stage 1 MIRIAN on admission, multifactorial but in the setting of ARB use, other with Cr level downward trended but even with level at ULN with her diminished muscle mass may be notable 2. Hypernatremia in the setting of impaired intake, diuretic use, insensible losses, other -agreed earlier in the week with escalating D5W to 50 cc, calculated water deficit targeting Na of 140 was 1.4L but that does not take into account urinary/insensible water losses. Na level down to < 145 since, D5W rate lowered but will maintain for now 3. Acute hypoxic resp insufficiency, in the setting of Influenza PNA, and chronic diastolic CHF -monitor resp status closely, management per pulm 4. 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 Metab alkalosis 2nd to CHF, diuretics, other -did place on low dose Diamox with hypercarbia on prior ABG
--- NOTE | 2024-06-05 12:57 | P.PN ---
Subjective Date of Service: 06/05/24 Chief Complaint: respiratory failure Patient appeared lethargic and confused No issues overnight, no reported agitation. She is tolerating pureed diet but need to be fed with assistance. Physical Examination - Vital Signs Temperature: 93.5 F Blood Pressure: 109/56 Pulse: 70 Respirations: 18 Pulse Ox (%): 98 Assessment And Plan - Plan Physical Exam: GEN: Alert, oriented x 1, NAD CV: Normal rate and regular rhythm, ; bilateral lower extremity edema Pulm: Clear to auscultation bilaterally, adequate breath sounds bilaterally. ABD: soft, nontender, nondistended Urogenital: nguyen in place Diagnosis Multifocal pneumonia Acute on chronic CHF exacerbation (HFpEF 04/2023) Recent history Influenza A infection Acute hypoxic and hypercapnic respiratory failure. Hx lung cancer s/p radiation (?2021) MIRIAN vs CKD Hypernatremia Hypophosphatemia Chronic a-fib; on anticoagulation with pacemaker in place COPD, chronic Hx CAD s/p CABG Hypertension Hyperlipidemia Hypothyroidism Dementia, chronic Depression/Axniety Chronic back pain Plan Multifocal pneumonia Acute on chronic diastolic CHF exacerbation (HFpEF 04/2023) Recent Influenza A+ (~1 week ago) Acute hypoxic and hypercapnic respiratory failure; multifactorial etiology secondary to above Hx lung cancer s/p radiation (2021) Recently diagnosed with Influenza A. CXR (05/28): COPD, Nodular left mid to lower lung opacity, could relate to focal airspace disease or a small mass. CT chest (05/28): Multifocal basal predominant airspace opacities as above, most suggestive of multifocal pneumonia. Mild cardiomegaly. Echo: Normal EF, severe pulm hypertension. Prior echo showed 59% EF, normal wall motion. mild MR/TR/PI Blood cx (05/27): NGTD ABG on 05/29 with elevated PCO2, HCO3. Patient transferred to ICU 05/29 pm for BiPAP and subsequently transferred out of the ICU after pCO2 improved. Oxygen titrated to 3 L by nasal cannula. BiPAP weaned to oxygen by nasal cannula. Wean off oxygen to room air as tolerated Patient completed 7 days of IV cefepime. Given possible aspiration pneumonia, will transition IV cefepime to oral Augmentin. lasix dc'd 05/[address] Bailon input appreciated. Continue [facility] PT evaluation. MIRIAN vs CKD Hypernatremia, hypovolemia Hypophosphatemia unknown baseline. ~1.1-1.2 back in Jul 2023 renal u/s (05/29): Mild increased echogenicity bilaterally compatible with underlying medical renal disease. MIRIAN resolved. lasix dc'd 05/30 given hypernatremia Nephrology is following. Hypernatremia resolved, phosphate corrected. Patient is on low rate IV D5. Feeding with assistance. Aspiration event Oropharyngeal dysphagia speech evaluated by speech and patient failed swallow evaluation. Patient is tolerating pured diet. Ongoing swallowing assessment. Chronic a-fib; on anticoagulation with pacemaker in place COPD, chronic Hx CAD s/p CABG Hypertension Hyperlipidemia Hypothyroidism Dementia, chronic Depression/Axniety Chronic back pain Continue home medications-eliquis, coreg, depakote, protonix, rivastigmine. Continue home dose buspirone. DVT prophylaxis: Eliquis Advanced directive: Full code Disposition: Pending PT evaluation.
[2024-06-05] MEDS ORDERED: NOREPINEPHRINE BITARTRATE/D5W 4 MG/250 ML KIT IV ONE (21:28)
[2024-06-05] MEDS: NOREPINEPHRINE 4 MG in D5W 250 ML IV SCH (21:30)
[2024-06-05] MEDS ORDERED: NA CHLORIDE 0.9% 1,000 ML ONE (21:39)
--- NOTE | 2024-06-05 22:25 | P.PN ---
Date of Service: 06/05/24 Maru Bergeron Called to see the patient Patient is hypothermic and hypotensive altered. Was started on Mitali hugger ABG obtained which shows hypercapnia Started on BiPAP Shifted to ICU Started on Levophed MARU BERGERON was called as the patient had PEA Started from CPR ACLS protocol was done ER MD intubated the patient Fluid resuscitation was done In spite of the Efforts patient did not regain ROSC Patient Clinically
--- NOTE | 2024-06-05 22:26 | RAD REPORT ---
EXAMINATION: ONE VIEW CHEST XR CLINICAL INDICATION: Female, 88 years old.,SOB TECHNIQUE: Frontal chest projection is submitted. Examination is limited by patient positioning and t echnique. COMPARISON: 05/30/2024 FINDINGS: Moderate to large layering right pleural effusion. Triangular right apical opacity, may represent foc al airspace disease or a component of effusion as well, appears stable compared to the 2023 study. Background emphysematous changes. No pneumothorax or left-sided sizable effusion. The heart i s normal in size. 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 IMPRESSION: Moderate to large layering right pleural effusion, with an additional right apical airspace opacity.
[2024-06-05 23:24] VITALS: O2SAT 91
[2024-06-06 00:18] LABS: Arterial Blood Carboxyhemoglob 0.7 % (0-1.5); Blood Gas Oxyhemoglobin 89.3 % (94-97); Blood Gas THB 11.5 g/dl (12-18); Blood O2 Saturation 91.6 % (92-98.5)
--- NOTE | 2024-06-06 00:37 | P.PN ---
Date of Service: 06/05/24 Called to patient's room due to Code Blue to secure airway. CPR in progress. No medications used. Consent given by family over the phone who wanted all measures taken and patient is full code. Emergent situation. Glidescope used for visualization with stomach contents noted in the airway at time of intubation. Vocal cords visualized and 7.5 ETT placed with Glidescope stylet to 25 cm at the lip. ETCO2 detector with color change confirmed placement. Pt suctioned vigorously via oropharyngeal suctioning and through the ETT itself. CPR continued and care of patient continued with Dr. Theodore at bedside.
[2024-06-06 01:36] VITALS: BP 79/67; TEMP 94.8
[2024-06-08] MEDS ORDERED: Calcium Chloride 10% INJ SYR IV ONE (04:58)
[2024-06-08] MEDS ORDERED: EPINEPHrine 1 MG/10 ML SYR IV ONE (04:58)
== END 2024-06-06 04:59 | disposition expired | DRG 193 ==
LOC: ER 19:07 → ERHOLD 05-28 → 4TH 05-28 10:15 → 3RD-ICU 05-29 21:03 → 2ND 06-03 22:45 → 3RD-ICU 06-05 21:25
PROVIDERS: ADMIT Internal Medicine; ATTEND Internal Medicine
PROC: 0T9B70Z Drainage of Bladder with Drainage Device, Via Natural or Artificial Opening (ICD-10-PCS; 2024-05-28)
PROC: 4A033R1 Measurement of Arterial Saturation, Peripheral, Percutaneous Approach (ICD-10-PCS; principal; 2024-05-29)
PROC: 5A09557 Assistance with Respiratory Ventilation, Greater than 96 Consecutive Hours, Continuous Positive Airway Pressure (ICD-10-PCS; 2024-05-29)
PROC: 5A12012 Performance of Cardiac Output, Single, Manual (ICD-10-PCS; 2024-06-05)
DX: J18.9 Pneumonia, unspecified organism (principal); E43 Unspecified severe protein-calorie malnutrition; I50.33 Acute on chronic diastolic (congestive) heart failure; J96.01 Acute respiratory failure with hypoxia; J96.02 Acute respiratory failure with hypercapnia; Z68.1 Body mass index [BMI] 19.9 or less, adult; J44.0 Chronic obstructive pulmonary disease with (acute) lower respiratory infection; I48.20 Chronic atrial fibrillation, unspecified; N17.9 Acute kidney failure, unspecified; I13.0 Hypertensive heart and chronic kidney disease with heart failure and stage 1 through stage 4 chronic kidney disease, or unspecified chronic kidney disease; F03.94 Unspecified dementia, unspecified severity, with anxiety; F03.93 Unspecified dementia, unspecified severity, with mood disturbance; E87.0 Hyperosmolality and hypernatremia; E87.3 Alkalosis; N18.9 Chronic kidney disease, unspecified; I27.20 Pulmonary hypertension, unspecified; E03.9 Hypothyroidism, unspecified; G89.29 Other chronic pain; M54.9 Dorsalgia, unspecified; E83.39 Other disorders of phosphorus metabolism; E78.5 Hyperlipidemia, unspecified; I95.9 Hypotension, unspecified; I25.10 Atherosclerotic heart disease of native coronary artery without angina pectoris; R13.12 Dysphagia, oropharyngeal phase; R68.0 Hypothermia, not associated with low environmental temperature; Z95.0 Presence of cardiac pacemaker; Z88.5 Allergy status to narcotic agent; Z88.1 Allergy status to other antibiotic agents; Z95.1 Presence of aortocoronary bypass graft; Z88.8 Allergy status to other drugs, medicaments and biological substances; Z90.49 Acquired absence of other specified parts of digestive tract; Z79.01 Long term (current) use of anticoagulants; Z79.02 Long term (current) use of antithrombotics/antiplatelets; Z79.52 Long term (current) use of systemic steroids; Z79.899 Other long term (current) drug therapy; Z90.710 Acquired absence of both cervix and uterus; Z85.118 Personal history of other malignant neoplasm of bronchus and lung
CPT/HCPCS: 36415; 36600; 71045; 71250; 76770; 80048; 80053; 80069; 80202; 81001; 82805; 82947; 83605; 83735; 83880; 84100; 84484; 85025; 85027; 85610; 85730; 87040; 92526; 92610; 93005; 93306; 94640; 94660; 96365; 99285; J0692; J1644; J1940; J2270; J3480; J7030; J7050; J7613; J7614; J7644; J7799